=== PATIENT | female | born 1960 | race Caucasian/White ===

== ENCOUNTER 2016-02-22 08:11 | Inpatient (IN) | payer MEDICARE, MEDICAID, OTHER ==
[~2016-02-22] VITALS: Ht 175.3 cm; Wt 99.4 kg
[2016-02-22 08:11] VITALS: BP 151/85; PULSE 140; O2SAT 95
[~2016-02-22 08:11] MED LIST: ALBU8.5H2 INHALATION; GLIP10TA10 PO; HAL5 PO; IBUP200C PO; KLO1T PO; LEVO200T6 PO; LEVO25TA5 PO; LIP40 PO; LISI-571 PO; LITH300T PO; LITH300T2 PO; METF1000 PO; NIAC500T21 PO; OMEP40CA36 PO; PRAZ1CAP PO; diphenHYDramine PO
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
[2016-02-22] MEDS ORDERED: LORazepam 2 mg Tablet PO ONE ×2 (09:55→19:35)
[2016-02-22] MEDS ORDERED: diphenhydrAMINE 50 mg Capsule PO ONE ×2 (09:55→19:35)
[2016-02-22 10:08] VITALS: PULSE 113; O2SAT 100
[2016-02-22 10:22] LABS: BASOPHILS % (AUTO) 0.2 % (0-3); EOSINOPHILS % (AUTO) 0.4 % (0-5); Mean Corpuscular Hemoglobin 29.6 pg (27.0-35.0); Mean Corpuscular Volume 86.8 fL (81-100); NEUTROPHILS % (AUTO) 87.6 % (40-74); Platelet Count 345 bil/L (150-400)
[2016-02-22 14:36] VITALS: BP 137/87; PULSE 79; RESP 20; O2SAT 97
[2016-02-22 18:21] VITALS: BP 133/87; PULSE 94; RESP 20; O2SAT 100
[2016-02-22] MEDS ORDERED: diphenhydrAMINE 25 mg Capsule PO ONE (19:45)
[2016-02-22 21:14] VITALS: BP 152/73; PULSE 84; RESP 18; O2SAT 96
[2016-02-22] MEDS ORDERED: Alum-Mag Hydrox-Simeth 30 mL Suspension PO PRN (21:45)
[2016-02-22] MEDS ORDERED: hydrOXYzine Pamoate 25 mg Capsule PO PRN (21:45)
[2016-02-22] MEDS ORDERED: diphenhydrAMINE 25 mg Capsule PO PRN (21:55)
[2016-02-22] MEDS ORDERED: Albuterol HFA 60 Puff 8 Gm Inhaler INHALATION PRN (21:55)
[2016-02-22] MEDS: Magnesium Hydroxide 10 mL Oral Concentration PO PRN (23:39)
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
--- NOTE | 2016-02-23 02:28 | NUR ---
Observations 1900 to 0700 Pt arrived on the floor form our ED at 21:00 and was able complete the entire intake process. Pt took a shower when she was done with the intake process. Pt was polite and cooperative. Pt hung out in the DR for awhile and took a long time going to her room. Pt first appeared asleep at 00:45 and was observed every 15 minutes through the night as directed.
--- NOTE | 2016-02-23 05:06 | NUR ---
Nursing Note Noc shift Pt noted sleep time 0045 with 4 hr broken sleep. Pt got up multiple times throughout shift and appears to be in a manic state. Pt currently up cleaning milieu and singing. Pt was compliant with HS meds and requested Tylenol of neck pain. Q15 min safety checks done per protocol [facility] sleep, behavior, safety
[2016-02-23] MEDS: Pantoprazole 40 mg ER24 Tablet PO SCH (07:39)
[2016-02-23] MEDS: LORazepam 2 mg Tablet PO PRN ×2 (10:22→16:46)
[2016-02-23] MEDS ORDERED: Albuterol HFA 60 Puff 8 Gm Inhaler INHALATION PRN (11:35)
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
[2016-02-23 13:46] VITALS: BP 112/74; PULSE 92; RESP 16
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
--- NOTE | 2016-02-23 17:39 | NUR ---
spiritual care: pt request on unit pt asked for conversation time when i was visiting another pt. Returning to her, she invited me to join her and another pt at table. She recited the Serenity Prayer several times and the Lord's prayer and engaged in limited conversation about being a mosque, feeling better on MHC; she seemed to want to make distinctions between herself and others. pt calm, even perhaps stony, in manner,
--- NOTE | 2016-02-23 20:08 | NUR ---
Obs Dayshift Pt started the shift demanding, loud, verbally aggressive, vulgar language toward peers and staff. Challenging and threatening peers and staff. Pt refusing to follow staff directions, or unit policies. With Security assistance and show of support, pt was escorted to Seclusion where she cont' to verbally assault staff, threaten and vulgar language. Pt was able to calm herself and verbally agree to be more respectful toward others. She went to her room and had a short nap, since has been out in the milieu, polite, engaging appropriately w/ peers, calm, able to maintain herself on the unit. Good ADL's, Good meals
[2016-02-23] MEDS ORDERED: ' PO SCH (20:30)
[2016-02-23] MEDS: diphenhydrAMINE 25 mg Capsule PO SCH (21:08)
[2016-02-24] MEDS: LORazepam 2 mg Tablet PO PRN ×2 (03:43→21:32)
--- NOTE | 2016-02-24 04:27 | NUR ---
Nursing Note Noc shift Pt has been up and down with broken sleep throughout the shift. Pt first noted asleep 0030 with the longest period of uninterrupted sleep being loyda 40 min. Pt c/t be hostile, argumentative and demanding. Pt noted to be challenging other staff nurse on flora, glaring through window yelling "you know what you did". Pt given Tylenol 650mg for 10/10 hip pain and 2 mg ativan per request from Pt . Pt currently up socializing in a loud demeanor with peer. Q15 min safety checks per protocol, [facility] sleep, safety, behavior
--- NOTE | 2016-02-24 05:13 | NUR ---
Pt out on unit much of shift. Rapid change in mood from pleasant and happy to paranoid and posturing with staff. Pt up and down throughout shift. Pt observed every 15 minutes as ordered.
[2016-02-24] MEDS: Pantoprazole 40 mg ER24 Tablet PO SCH (07:43)
[2016-02-24 09:00] VITALS: BP 101/61; PULSE 95; RESP 16
--- NOTE | 2016-02-24 12:46 | PCM.PNPSY ---
Subjective Date of Service Feb 24, 2016 Subjective I spent 30 minutes both reviewing treatment plan and providing court documentation for a bench trial Sunday a.m. I spent less than 50% of the time counseling the patient. I attempted to review the treatment plan with the patient and discussed options available including the potential risks, benefits and side effects of her current regimen but she refused. Malu reports that she is fine and has no problem with thought organization or mood stability. Staff reports that she has been hostile in interactions and has been in her acting with other patients and staff in a confrontational and hostile manner. She slept 4.5 broken hours . She denies medication side effects. Patient was not able to identify her medications nor what they were used to treat. She repeatedly stated that she does not need psychiatric medications Current Medications Current Medications Acetaminophen 650 mg Q4H PRN PO Last administered on 02/24/16 03:44; Admin Dose 650 MG; Start 02/22/16 at 21:45 Atorvastatin Calcium 40 mg HS PO Last administered on 02/23/16 21:03; Admin Dose 40 MG; Start 02/22/16 at 21:55 Clonazepam 1 mg TID PO Last administered on 02/23/16 07:39; Admin Dose 1 MG; Start 02/22/16 at 21:55; Stop 02/23/16 at 12:11; Status DC Clonazepam 1 mg TID PO Last administered on 02/24/16 07:51; Admin Dose 1 MG; Start 02/23/16 at 14:30 Diphenhydramine HCl 25 mg HS PO Last administered on 02/23/16 21:08; Admin Dose 25 MG; Start 02/23/16 at 21:00 Diphenhydramine HCl 50 mg ONCE ONCE PO Last administered on 02/22/16 20:33; Admin Dose 50 MG; Start 02/22/16 at 19:45; Stop 02/22/16 at 19:46; Status DC Glipizide 10 mg BIDAC PO Last administered on 02/24/16 07:44; Admin Dose 10 MG ; Start 02/23/16 at 07:30 Haloperidol 5 mg HS PO Last administered on 02/22/16 22:52; Admin Dose 5 MG; Start 02/22/16 at 21:55; Stop 02/23/16 at 12:11; Status DC Haloperidol 5 mg HS PO Last administered on 02/23/16 21:06; Admin Dose 5 MG; Start 02/23/16 at 21:00 Haloperidol 5 mg ONCE ONCE PO Last administered on 02/22/16 18:16; Admin Dose 5 MG; Start 02/22/16 at 18:10; Stop 02/22/16 at 18:11; Status DC Haloperidol 5 mg ONCE ONCE PO Last administered on 02/22/16 20:33; Admin Dose 5 MG; Start 02/22/16 at 19:35; Stop 02/22/16 at 19:36; Status DC Levothyroxine Sodium 25 mcg DAILYAC PO Last administered on 02/24/16 07:42; Admin Dose 25 MCG; Start 02/24/16 at 07:30 Levothyroxine Sodium 100 mcg DAILYAC PO Last administered on 02/23/16 07:38; Admin Dose 100 MCG; Start 02/23/16 at 07:30; Stop 02/23/16 at 12:15; Status DC Levothyroxine Sodium 125 mcg 0630 PO Last administered on 02/23/16 07:38; Admin Dose 125 MCG; Start 02/23/16 at 06:30; Stop 02/23/16 at 12:15; Status DC Levothyroxine Sodium 200 mcg DAILYAC PO Last administered on 02/24/16 07:43; Admin Dose 200 MCG; Start 02/24/16 at 07:30 Lisinopril 5 mg DAILY PO Last administered on 02/24/16 07:51; Admin Dose 5 MG; Start 02/23/16 at 08:30 [place] Carbonate 300 mg BID PO Last administered on 02/24/16 07:51; Admin Dose 300 MG; Start 02/23/16 at 08:30 Lorazepam 2 mg ONCE ONCE PO Last administered on 02/22/16 20:33; Admin Dose 2 MG; Start 02/22/16 at 19:35; Stop 02/22/16 at 19:36; Status DC Lorazepam 2 mg Q4H PRN PO Last administered on 02/24/16 03:43; Admin Dose 2 MG ; Start 02/22/16 at 21:45 Magnesium Hydroxide 10 ml Q12H PRN PO Last administered on 02/22/16 23:39; Admin Dose 10 ML; Start 1/10/17 at 21:45 Metformin HCl 1,000 mg BIDWM PO Last administered on 02/24/16 07:51; Admin Dose 1,000 MG; Start 02/23/16 at 08:00 Pantoprazole 40 mg DAILYAC PO Last administered on 02/24/16 07:43; Admin Dose 40 MG; Start 02/23/16 at 07:30 Prazosin HCl 3 mg HS PO Last administered on 02/23/16 21:06; Admin Dose 3 MG; Start 02/22/16 at 21:55 Mental Status Exam Appearance: Disheveled Attitude: Hostile/Threatening Behavior: Distractible Affect: Labile Mood: Expansive, Irritable, Dysthymic Thought Process/Associations: Loose, Tangential Speech Production: Loud Speech Rate: Pressured Thought Content: Sikh preoccupation, Perseveration Danger to Self/Suicidal Ideati: None Delusions: Paranoid (Endorses) Orientation: Unable to assess Memory: Untestable Estimate Intellectual Function: Unable to assess Attention/Concentration & Cogn: Impaired Insight: Limited Judgement: Limited Result Diagram: 02/22/16 1010 02/22/16 1010 Mental Health Plan The patient is a 55-year-old white female with a history of severe bipolar mood disorder with psychosis. She has been admitted to multiple inpatient psychiatric hospitals throughout the the [facility] over the past 15 years. When she takes her medications, low-dose Klonopin, Haldol and lithium, she tends to do quite well. She apparently has been off medications for an unclear amount of time and has developed a full-blown yahaira (although there is report that she was recently In [facility] until several days prior to our admission). When she is manic, she tends to have a hyperreligious, hypersexual focus with paranoia and extreme irritability. She tends to threaten other people. This has been especially difficult for the people in her life including her and close friends. She has been trying to manage with outpatient services. However, has continued to decompensate since discharging from multiple different units. I believe she would benefit from a long-acting neuroleptic, although at this time, she is not cooperative in any manner. She is currently quite paranoid, quite pressured in her speech and refusing any psychotherapy. She is willing to take medications at this time. [place] AXIS I 1. Bipolar mood disorder, manic with psychotic features. 2. Posttraumatic stress disorder. 3. History of polysubstance abuse. AXIS II Defer. AXIS III 1. Hypertension. 2. Insulin-dependent diabetes mellitus. 3. Hypothyroidism. 4. Obesity. AXIS IV 1. Poor coping skills. 2. Chronic mental illness. AXIS V Current global assessment of functioning equal to 30. Treatments Patient is being provided with a high degree of safety through the structure and active adult engagement. We will focus on developing improved coping skills and identifying stressors that may have led to current episode. We will attempt to: Integrate into therapeutic groups, milieu and individual therapy. Maintain in a closely monitored and structured unit Provide low-stimulation environment Obtain collateral data to assist in treatment planning Assess degree of lability of affect and impulse control Complete safety plan Decrease frequency of relapse and need for re-hospitalization Denies thoughts of harm to self and/or others Establish a consistent sleep pattern Medication effective in stabilization of mood and/or thought process Reduce the risk of imminent harm to self and/or others by providing a safe environment Tolerates medication without side effects Patient will be on the following psychiatric medications: lithium 300 mg twice a day Prazosin 3 mg at bedtime Klonopin 1 mg 3 times a day Haldol 5 mg at bedtime Labs: Education: Educate patient about recreational drug use as an etiology Educate about metabolic etiologies related to obesity Address patient's legal status Patient is on a 72 involuntary treatment hold. Patient will be given the opportunity to talk to her internet architect and the epitaxial reactor operator Anticipate 5-7 day stay Liam Dobbins MD Feb 24, 2016 12:46
--- NOTE | 2016-02-24 17:58 | NUR ---
Nursing Dayshift: S: "I'll take my dinner meds at bedtime. Thank you." O: Patient declining metformin and glipizide at supper and requesting them for "bedtime like I take them at home." Has spent a good amount of time in the public areas of the unit. Eating well at meals. Social with peers. Irritable at times with select staff. othertimes polite and respective of people's boundaries. Coop with meds. Denies anxiety, depression, harmful thoughts, and hallucinations. A/P: CPOC. Monitor mood and behavior.
--- NOTE | 2016-02-24 18:54 | NUR ---
[facility] Day Shift Pt maintained behavioral control throughout the shift. Pt affect appears labile, ranging from unpleasant and defiant to pleasant and compliant throughout the shift. Pt spends most of the shift pacing the unit, participating in unit activities, and resting in her room. Pt is social with staff and peers, both appropriately and and in somewhat confrontational manners. Pt appears religiously preoccupied. Pt attended all meals and ate approx 80% of all meals.
[2016-02-24] MEDS: diphenhydrAMINE 25 mg Capsule PO SCH (20:54)
[2016-02-24] MEDS: Magnesium Hydroxide 10 mL Oral Concentration PO PRN (21:39)
--- NOTE | 2016-02-24 22:31 | NUR ---
Nurses Note Evening "You can kiss my ass you bitch,you are going to rot in hell." Patient pushed her way into the medication room as the nurse was exiting to give medications to another patient. She eventually moved away from the door. Patient later lurched at the promotion writer in a threatening way using vulgar language.She later received an Ativan 2mg PO administered by another nurse who she verbally abused as well. Patient instigated several peers to escalate requiring additional PRN medications to maintain safety. Will encourage improved impulse controls, limit setting as required to maintain patient and unit safety.
--- NOTE | 2016-02-25 03:59 | NUR ---
Pt out on unit much of shift. Rapid change in mood from pleasant and happy to paranoid and posturing with staff. Pt yelling at staff and invading personal space. Her mood was fine until on the phone with her friend, then yelling and accusing staff of various wrongdoing. Pt asleep at 100. Pt observed every 15 minutes as ordered.
--- NOTE | 2016-02-25 03:59 | NUR ---
Nursing Noc Pt appears to escalate her mood and behavior to an intrusive and verbally abusive manner, when ever she is talking on phone to her friend. Pt has been dificult to direct and has poor behavior control. Pt appears to be sleeping poorly this shift. Continuing to monitor emotional state, mood, behavior, sleep times, and medicaitons. CP.
--- NOTE | 2016-02-25 04:08 | NUR ---
nursing, nights, 11-7 s/o- up and down since start of the shift. appeared to sleep after 0100 to 0400 and is now sitting quietly in the dinning room. assessed q 15 minutes. a- more pleasant and generally appropriate. no apparent distress. p- monitor behavior/emotional state, quality, times and amount of sleep, use and effect of medication. yolanda
[2016-02-25] MEDS: Pantoprazole 40 mg ER24 Tablet PO SCH (07:29)
--- NOTE | 2016-02-25 11:15 | NUR ---
Nursing Day Shift- S-"How are you Art?! I don't take meds either. Don't let them experiment on you here!" O- Pt. was awake at the start of the day shift. Her tone was loud and pleasant initially. She took her medications without hesitation and eat well after requesting and receiving specific foods. Pt. was observed crying while talking to a peer at 9ish, then laughing loudly a few moments later. She was overheard discouraging a peer from taking medications. A- Hypomanic, loud tone, labile, grandiose and delusional. P- Cont. BHTP.
--- NOTE | 2016-02-25 11:52 | PCM.PNPSY ---
Subjective Date of Service Feb 25, 2016 Subjective I spent 20 minutes counseling the patient. I attempted to review the treatment plan with the patient and discussed options available including the potential risks, benefits and side effects of her current regimen but she refused. Malu repeats that she is fine and has no problem with thought organization or mood stability. She states she does not have a mental illness and does not need medications. Staff reports that she has been alternating between periods of hostility in interactions and an periods of generally congenial interactions. She slept 3 broken hours . Patient was not able to identify her medications nor what they were used to treat. She repeatedly stated that she does not need psychiatric medications Current Medications Current Medications Clonazepam 1 mg TID PO Last administered on 02/25/16 08:29; Admin Dose 1 MG; Start 02/23/16 at 14:30 Diphenhydramine HCl 25 mg HS PO Last administered on 02/24/16 20:54; Admin Dose 25 MG; Start 02/23/16 at 21:00 Haloperidol 5 mg HS PO Last administered on 02/24/16 20:55; Admin Dose 5 MG; Start 02/23/16 at 21:00 Ibuprofen 200 mg Q4H PRN PO Last administered on 02/25/16 08:30; Admin Dose 200 MG; Start 02/23/16 at 12:10 Levothyroxine Sodium 25 mcg DAILYAC PO Last administered on 02/25/16 07:31; Admin Dose 25 MCG; Start 02/24/16 at 07:30 Levothyroxine Sodium 200 mcg DAILYAC PO Last administered on 02/25/16 07:31; Admin Dose 200 MCG; Start 02/24/16 at 07:30 Mental Status Exam Appearance: Disheveled Attitude: Hostile/Threatening Behavior: Distractible Affect: Labile Mood: Expansive, Irritable, Dysthymic Thought Process/Associations: Loose, Tangential Speech Production: Loud Speech Rate: Pressured Thought Content: Latter Day preoccupation, Perseveration Danger to Self/Suicidal Ideati: None Delusions: Paranoid (Endorses) Orientation: Unable to assess Memory: Untestable Estimate Intellectual Function: Unable to assess Attention/Concentration & Cogn: Impaired Insight: Limited Judgement: Limited Result Diagram: 02/22/16 1010 02/22/16 1010 Mental Health Plan The patient is a 55-year-old white female with a history of severe bipolar mood disorder with psychosis. She has been admitted to multiple inpatient psychiatric hospitals throughout the [place] over the past 15 years. When she takes her medications, low-dose Klonopin, Haldol and lithium, she tends to do quite well. She apparently has been off medications for an unclear amount of time and has developed a full-blown yahaira (although there is report that she was recently In [facility] until several days prior to our admission). When she is manic, she tends to have a hyperreligious, hypersexual focus with paranoia and extreme irritability. She tends to threaten other people. This has been especially difficult for the people in her life including her and close friends. She has been trying to manage with outpatient services. However, has continued to decompensate since discharging from multiple different units. I believe she would benefit from a long-acting neuroleptic, although at this time, she is not cooperative in any manner. She is currently quite paranoid, quite pressured in her speech and refusing any psychotherapy. She is willing to take medications at this time. [place] AXIS I 1. Bipolar mood disorder, manic with psychotic features. 2. Posttraumatic stress disorder. 3. History of polysubstance abuse. AXIS II Defer. AXIS III 1. Hypertension. 2. Insulin-dependent diabetes mellitus. 3. Hypothyroidism. 4. Obesity. AXIS IV 1. Poor coping skills. 2. Chronic mental illness. AXIS V Current global assessment of functioning equal to 30. Treatments Patient is being provided with a high degree of safety through the structure and active adult engagement. We will focus on developing improved coping skills and identifying stressors that may have led to current episode. We will attempt to: Integrate into therapeutic groups, milieu and individual therapy. Maintain in a closely monitored and structured unit Provide low-stimulation environment Obtain collateral data to assist in treatment planning Assess degree of lability of affect and impulse control Complete safety plan Decrease frequency of relapse and need for re-hospitalization Denies thoughts of harm to self and/or others Establish a consistent sleep pattern Medication effective in stabilization of mood and/or thought process Reduce the risk of imminent harm to self and/or others by providing a safe environment Tolerates medication without side effects Patient will be on the following psychiatric medications: lithium 300 mg twice a day Prazosin 3 mg at bedtime Klonopin 1 mg 3 times a day Haldol 5 mg at bedtime Labs: Education: Educate patient about recreational drug use as an etiology Educate about metabolic etiologies related to obesity Address patient's legal status Patient is on a 72 involuntary treatment hold. Patient will be given the opportunity to talk to her compliance attorney and the asset protection greeter Anticipate 5-7 day stay Liam Dobbins MD Feb 25, 2016 11:15
[2016-02-25 14:23] VITALS: BP 117/78; PULSE 80; RESP 16
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
[2016-02-25] MEDS: diphenhydrAMINE 25 mg Capsule PO SCH (22:01)
[2016-02-25] MEDS: LORazepam 2 mg Tablet PO PRN (23:00)
[2016-02-26] MEDS: LORazepam 2 mg Tablet PO PRN (03:24)
--- NOTE | 2016-02-26 05:22 | NUR ---
Nursing Note Noc Pt has had intermittent, broken sleep for a total of three hr. Pt c/t be religiously focused with a hostile and angry demeanor. Pt spent most of the shift pacing hallway, talking very loudly and instigating non-compliance with peers. Pt was compliant with meds and requested PRN Ativan at 2300. Pt took med and then stated in a hostile, angry tone "I think you gave me Haldol, not ativan". Pt is currently resting in room. Q15 min safety checks done per protocol, [facility] sleep, behavior, safety
--- NOTE | 2016-02-26 05:33 | NUR ---
Pt out on unit much of shift. Rapid change in mood from pleasant and happy to paranoid and posturing with staff. Her mood was fine until on the phone with her daughter, then yelling and accusing staff of various wrongdoing. Also tried to instigate arguments with any other Pt that got anywhere close to her. Pt asleep 0030-300. Pt observed every 15 minutes as ordered.
[2016-02-26] MEDS: Pantoprazole 40 mg ER24 Tablet PO SCH (07:52)
[2016-02-26] MEDS: Magnesium Hydroxide 10 mL Oral Concentration PO PRN (09:00)
--- NOTE | 2016-02-26 12:52 | PCM.PNPSY ---
Subjective Date of Service Feb 26, 2016 Subjective I spent 20 minutes reviewing patient's course with staff. I attempted to review the treatment plan with the patient and discussed options available including the potential risks, benefits and side effects of her current regimen but she refused. Malu repeats that she is fine and has no problem with thought organization or mood stability. She was more pleasant with me today but still is only able to tolerate brief interactions. After which she rapidly escalates and becomes hostile and blaming. She states she does not have a mental illness and does not need medications she is taking medications as prescribed. Staff reports that she has been alternating between periods of hostility in interactions and an periods of generally congenial interactions. She slept 3 broken hours . Mental Status Exam Appearance: Disheveled Attitude: Hostile/Threatening Behavior: Distractible Affect: Labile Mood: Expansive, Irritable, Dysthymic Thought Process/Associations: Loose, Tangential Speech Production: Loud Speech Rate: Pressured Thought Content: Temple preoccupation, Perseveration Danger to Self/Suicidal Ideati: None Delusions: Paranoid (Endorses) Orientation: Unable to assess Memory: Untestable Estimate Intellectual Function: Unable to assess Attention/Concentration & Cogn: Impaired Insight: Limited Judgement: Limited Result Diagram: 02/22/16 1010 02/22/16 1010 Mental Health Plan The patient is a 55-year-old white female with a history of severe bipolar mood disorder with psychosis. She has been admitted to multiple inpatient psychiatric hospitals throughout the [facility] over the past 15 years. When she takes her medications, low-dose Klonopin, Haldol and lithium, she tends to do quite well. She apparently has been off medications for an unclear amount of time and has developed a full-blown yahaira (although there is report that she was recently In [facility] until several days prior to our admission). When she is manic, she tends to have a hyperreligious, hypersexual focus with paranoia and extreme irritability. She tends to threaten other people. This has been especially difficult for the people in her life including her and close friends. She has been trying to manage with outpatient services. However, has continued to decompensate since discharging from multiple different units. I believe she would benefit from a long-acting neuroleptic, although at this time, she is not cooperative in any manner. She remains quite paranoid, quite pressured in her speech and refusing any psychotherapy. She is willing to take medications at this time. [place] AXIS I 1. Bipolar mood disorder, manic with psychotic features. 2. Posttraumatic stress disorder. 3. History of polysubstance abuse. AXIS II Defer. AXIS III 1. Hypertension. 2. Insulin-dependent diabetes mellitus. 3. Hypothyroidism. 4. Obesity. AXIS IV 1. Poor coping skills. 2. Chronic mental illness. AXIS V Current global assessment of functioning equal to 30. Treatments Patient is being provided with a high degree of safety through the structure and active adult engagement. We will focus on developing improved coping skills and identifying stressors that may have led to current episode. We will attempt to: Integrate into therapeutic groups, milieu and individual therapy. Maintain in a closely monitored and structured unit Provide low-stimulation environment Obtain collateral data to assist in treatment planning Assess degree of lability of affect and impulse control Complete safety plan Decrease frequency of relapse and need for re-hospitalization Denies thoughts of harm to self and/or others Establish a consistent sleep pattern Medication effective in stabilization of mood and/or thought process Reduce the risk of imminent harm to self and/or others by providing a safe environment Tolerates medication without side effects Patient will be on the following psychiatric medications: lithium 300 mg twice a day Prazosin 3 mg at bedtime Increase Klonopin 1 mg twice a day and 2 mg at bedtime Increase Haldol to 10 mg bedtime Address patient's legal status Patient is on a 72 involuntary treatment hold. Patient will be given the opportunity to talk to her lawyer real estate and the maintenance coordinator Anticipate 5-7 day stay Liam Dobbins MD Feb 26, 2016 12:52
--- NOTE | 2016-02-26 14:19 | NUR ---
Nursing Day Shift- S/O- Pt. has been visible on the unit during the shift. She had only slept 3 hours last night per report. Pt. has been pressured and loud, but within behavioral control. A- Pressured, loud, paranoid, very limited insight. Grandiose, labile. P- Cont. BHTP.
[2016-02-26 14:24] VITALS: BP 99/63; PULSE 80; RESP 16
--- NOTE | 2016-02-26 18:03 | NUR ---
NURSING NOTE [id number] Orientation= x3 Mood= "I'm always depressed, so..." Affect= superficially pleasant, irritable, pressured and hostile speech at times w/this senior technical writer Behavior= pt mostly keeping to herself this evening, interacting selectively w/peers. Her daughter visited. Ate most of her dinner. Thought processes= pt. reports depression because she is here and because "I'm being kept from my children... YOU are keeping me from my children". Pt. laughed in scornful tone when this senior technical writer asked if she has SI/HI, then denied either. Pt. denied AH/VH.
[2016-02-26] MEDS: diphenhydrAMINE 25 mg Capsule PO SCH (21:40)
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
[2016-02-27] MEDS: LORazepam 2 mg Tablet PO PRN (00:27)
--- NOTE | 2016-02-27 06:17 | NUR ---
Nursing 11p-7a Pt has been paranoid, suspicious & belligerent towards staff. She has made aggressive and baited comments tonight trying to created a rise out of others telling them "You are going to hell! How do you pick your nose. You are a bitch! You need a wardrobe change. You are a woman hater!" Pt presenting as easily agitated, paranoid and obnoxious at times. Ativan offered and accepted as prn but ineffective for agitation. Poor sleep tonight of 2 hours.
[2016-02-27 10:45] VITALS: BP 134/84; PULSE 88; RESP 18
--- NOTE | 2016-02-27 11:49 | NUR ---
Nursing Day Shift- S- "I would take all of my medications if I thought they weren't tapered with! No!! I'm not taking them today. They can be tapered with in the sealed packages. I don't trust any of you. I know you are trying to make me worse! You know you are." O- Pt. was asleep at the start of the day shift. She woke and was pleasant with staff. Her medications were offered, and she became loud and angry with staff. The medications have been re offered 3 times, and refused. Pt. was loud and verbally rude to a calm peer. Pt was difficult to redirect. A- Increasingly paranoid and angry today over yesterday. Refusing PO medications. P- informed. Cont. to build trust. Cont. BHTP.
--- NOTE | 2016-02-27 12:22 | PCM.PNPSY ---
Subjective Date of Service Feb 27, 2016 Subjective I spent 20 minutes reviewing patient's course with staff. I attempted to review the treatment plan with the patient and discussed options available including the potential risks, benefits and side effects of her current regimen but she refused. She could only tolerate 60 seconds of interaction before making vulgar statements and storming down the lam Malu repeats that she is fine and has no problem with thought organization or mood stability. She rapidly escalates and becomes hostile and blaming with minor provocation or frustrations. She states she does not have a mental illness and does not need medications she is taking medications as prescribed. Staff reports that she has been alternating between periods of hostility in interactions and an periods of generally congenial interactions. She slept 2 broken hours . Affect reports that she is frequently refusing medications. Current Medications Current Medications Clonazepam 1 mg 0830,1430 PO Last administered on 02/26/16 15:04; Admin Dose 1 MG; Start 02/26/16 at 14:30 Clonazepam 2 mg HS PO Last administered on 02/26/16 21:41; Admin Dose 2 MG; Start 02/26/16 at 21:00 Haloperidol 10 mg HS PO Last administered on 02/26/16 21:41; Admin Dose 10 MG; Start 02/26/16 at 21:00 Mental Status Exam Appearance: Disheveled Attitude: Hostile/Threatening Behavior: Distractible Affect: Labile Mood: Expansive, Irritable, Dysthymic Thought Process/Associations: Loose, Tangential Speech Production: Loud Speech Rate: Pressured Thought Content: Christianity preoccupation, Perseveration Danger to Self/Suicidal Ideati: None Delusions: Paranoid (Endorses) Orientation: Unable to assess Memory: Untestable Estimate Intellectual Function: Unable to assess Attention/Concentration & Cogn: Impaired Insight: Limited Judgement: Limited Result Diagram: 02/22/16 1010 02/22/16 1010 Mental Health Plan The patient is a 55-year-old white female with a history of severe bipolar mood disorder with psychosis. She has been admitted to multiple inpatient psychiatric hospitals throughout the [facility] over the past 15 years. When she takes her medications, low-dose Klonopin, Haldol and lithium, she tends to do quite well. She apparently has been off medications for an unclear amount of time and has developed a full-blown yahaira (although there is report that she was recently In [facility] until several days prior to our admission). When she is manic, she tends to have a hyperreligious, hypersexual focus with paranoia and extreme irritability. She tends to threaten other people. This has been especially difficult for the people in her life including her and close friends. She has been trying to manage with outpatient services. However, has continued to decompensate since discharging from multiple different units. I believe she would benefit from a long-acting neuroleptic, although at this time, she is not cooperative in any manner. She remains quite paranoid, quite pressured in her speech and refusing any psychotherapy. She is frequently refusing to take medications Will likely need a medication override after her court fdc for 14 is approved. [place] AXIS I 1. Bipolar mood disorder, manic with psychotic features. 2. Posttraumatic stress disorder. 3. History of polysubstance abuse. AXIS II Defer. AXIS III 1. Hypertension. 2. Insulin-dependent diabetes mellitus. 3. Hypothyroidism. 4. Obesity. AXIS IV 1. Poor coping skills. 2. Chronic mental illness. AXIS V Current global assessment of functioning equal to 30. Treatments Patient is being provided with a high degree of safety through the structure and active adult engagement. We will focus on developing improved coping skills and identifying stressors that may have led to current episode. We will attempt to: Integrate into therapeutic groups, milieu and individual therapy. Maintain in a closely monitored and structured unit Provide low-stimulation environment Obtain collateral data to assist in treatment planning Assess degree of lability of affect and impulse control Complete safety plan Decrease frequency of relapse and need for re-hospitalization Denies thoughts of harm to self and/or others Establish a consistent sleep pattern Medication effective in stabilization of mood and/or thought process Reduce the risk of imminent harm to self and/or others by providing a safe environment Tolerates medication without side effects Patient will be on the following psychiatric medications: After Sunday Court session would recommend a medication override be pursued this client is frequently refusing meds. lithium 300 mg twice a day Prazosin 3 mg at bedtime Increase Klonopin 1 mg twice a day and 2 mg at bedtime Increase Haldol to 10 mg bedtime Address patient's legal status Patient is on a 72 involuntary treatment hold. Patient will be given the opportunity to talk to her business analysis analyst and the coding educator Anticipate 7 day stay Liam Dobbins MD Feb 27, 2016 12:22
--- NOTE | 2016-02-27 13:25 | NUR ---
Police Service Technician./ c.m. S.:"Mind your own business!" O.: tried to meet with pt. before lunch and to work on her Treatment plan and goals. Pt. refused to talk and became angry very quickly. She refused to work on her Treatment plan and goals. She was in and out of her room picking up on different peers. A.: pt. is uncooperative, easily agitated, angry, paranoid and delusional. She looks internally preoccupied and responding on internal stimuli. P.: monitor behavior, provide safety in the unit, encourage pt. to take her meds; follow care plan.
[2016-02-27] MEDS: Pantoprazole 40 mg ER24 Tablet PO SCH (14:13)
--- NOTE | 2016-02-27 14:14 | NUR ---
Pt. agreed to take all of her AM scheduled medications at 1410 today. 1430 scheduled Klonopin to be held until a later time, as scheduled AM dose was given at 1410.
--- NOTE | 2016-02-27 18:58 | NUR ---
Obs Dayshift Pt has been restless, loud, inappropriate toward staff and peers. Yelling at peers, telling staff "you smell like tuna, have you showered lately" "your a bitch, I won't come to your group because you are trouble" flipping them off and trying to stare staff down in the RN station. Vulgar and inappropriate comments, statements. Walking the unit, went outside. Pt is grandiose, rude, impulsive, loud, challenging. Ok ADL's, Good meals
[2016-02-27] MEDS: diphenhydrAMINE 25 mg Capsule PO SCH (21:32)
--- NOTE | 2016-02-27 21:56 | NUR ---
Orientation= x2 (not oriented to situation) Mood= "hahaha!" Affect= irritable and hostile to staff, friendly and pleasant w/peers Behavior= pt. is visible on the unit, watching TV w/peers, spending time outside in the courtyard and in the rec room. She has been making rude and sarcastic comments to staff throughout the shift; mostly commenting on their appearances. She was hostile toward a DMHP who was here to evaluate another pt, shouting at him through the glass of the NS and giving him the middle finger and mocking him (she appeared to have had previous interactions w/him though he could not remember). Difficult to redirect and appears to do worse when staff engages with her. At dinner she was agreeable to take her Metformin and Glipizide but did not want to take the missing 14:30 Klonopin dose offered to her (she had refused her a.m. Klonopin but then agreed to take it at 1400, effectively missing the 14:30 Klonopin dose in her schedule). She was agreeable to take her HS medications. Thought processes= paranoid, delusional, did not respond to this typewriter assembly and parts inspector when asked about SI/HI, unwilling to answer most questions posed by this typewriter assembly and parts inspector and mostly issues sarcastic responses Addendum: 02/27/16 at 2159 by TERESA STUART RN Please note this was an RN shift report for [id number]
[2016-02-28] MEDS: LORazepam 2 mg Tablet PO PRN (02:57)
--- NOTE | 2016-02-28 05:49 | NUR ---
Observations from [id number] Upon shift start, pt was very unpleasant with staff, staring angrily and flipping them off. Then pt requested coffee at 2100 but was still very amped up so staff said it was too late for coffee and she started yelling demanding we make her coffee but was not able to understand that staff agreed it was too late for coffee with the milieu that we currently have. However after pt took meds, she seemed to calm down and appeared less agitated and angry. Pts affect is labile, ranging from irritable, hostile and defiant with staff, to pleasant and agreeable with peers unless they disagree with her or say something she doesnt like. Pt is very demanding and when she doesnt get her way, she escalates very quickly and begins yelling and cussing. Pt appeared asleep from 1493-6810 and from 7821-6002. Pt has been monitored every 15 minutes as directed.
--- NOTE | 2016-02-28 06:21 | NUR ---
Nursing note NOC Patient slept only 2.75 hours this shift. Pleasant and cooperative attitude towards staff and peers this shift. In milieu with peers having hair andorran braided. PRN 2 mg Ativan at 0257, effective.
[2016-02-28] MEDS: Pantoprazole 40 mg ER24 Tablet PO SCH (07:55)
[2016-02-28 08:45] VITALS: BP 107/67; PULSE 84; RESP 16
[2016-02-28] MEDS: Magnesium Hydroxide 10 mL Oral Concentration PO PRN (10:06)
[2016-02-28 10:16] VITALS: BP 107/67; PULSE 84; RESP 16
--- NOTE | 2016-02-28 12:42 | NUR ---
Mood, BM, and TSH Pt. came to medication room and asked for her morning medications. She took all her medications without problems. Pt. is calm, cooperative, and easy going thus far. PRN MOM was given as requested by pt. She reported she was constipated and that her last BM was 2 days ago. Will monitor GI/BM. TSH 0.051 (Low) on 02/22/16. Pt. currently on 225 mcg PO [address] daily[address] Dr. Stephens was notified by charge nurse. Doctor will review/order lab and medication. Addendum: 02/28/16 at 1405 by ALANNA RICO RN Pt. reported 1 BM today after she had MOM.
--- NOTE | 2016-02-28 14:05 | NUR ---
R. nipple P: According to evening or night nurse supervisor report, pt. verbalized concern about her R. nipple, "My nipple is inflamed". I: Assessed pt. right nipple in her room. Noted a couple minor scabs superior to R. nipple (resembling scabs from scratching). No signs of infection or drainage. Pt. reported itchy skin and she had been scratching herself. E: Discouraged further scratching to prevent skin breakdown. Gave pt. lotion to moisturizer affected skin area. Pt. agreed with plan.
--- NOTE | 2016-02-28 16:26 | NUR ---
Cop Examiner./ c.m. S.:"I'm very well, thank you. I'm waiting to talk to you together with all my grants director." O.: met with pt. and MD together in pt.'s room. She was resting in bed. She denied SI/HI - "I believe in [place] Miguel Ash. I will never hurt myself. It's against my believes!" She didn't want to do a blood test. She didn't believe that there was anything wrong with her previous blood test. "I'm sure they mixed up my blood with somebody else." She refused to talk about herself with MD saying that she was "talking to teams of my grants director from [place]." She was in and out of her room mostly keeping to herself. A.: pt. is uncooperative, isolative, unpredictable, has poor insight, seems confused. P.: monitor behavior, provide safety in the unit; follow care plan.
--- NOTE | 2016-02-28 19:36 | PCM.PNPSY ---
Subjective Date of Service Feb 28, 2016 Subjective The patient reports that she is "wonderful so far, I would like to talk and I'm talked off." She then goes on to state that she will only talk with her airborne mission systems superintendent is present, "lots of them, from [place]." With regards as to where she would live or with whom or where she would get services she stated it was "none of your business." Sleep: 2.75+ hours Appetite: "Just fine" Suicidal and homicidal ideation: "Any airborne mission systems superintendent will talk to you about it." " Never here" Auditory hallucinations/Visual hallucinations: "Never here" Other Psychotic Symptoms: Guarded and paranoid Anxiety/Depression: "That is for my superintendent stevedoring to talk to you about." Current Medications Current Medications Clonazepam 2 mg HS PO Last administered on 02/27/16 21:32; Admin Dose 2 MG; Start 02/26/16 at 21:00 Haloperidol 10 mg HS PO Last administered on 02/27/16 21:31; Admin Dose 10 MG; Start 02/26/16 at 21:00 Mental Status Exam Appearance: Neat/well groomed Attitude: Hostile/Threatening Behavior: Other Affect: Restricted Mood: Irritable, Other (angry) Thought Process/Associations: Goal Directed, Other (poverty of speech) Speech Production: Paucity Speech Rate: Lags/Latency Speech Articulation: Normal Thought Content: Suspicious, Perseveration Danger to Self/Suicidal Ideati: None Danger to Others: None Delusions: Paranoid (Endorses) Hallucinations: Auditory (Denies), Visual (Denies) Consciousness: Alert Orientation: Unable to assess Memory: Untestable Estimate Intellectual Function: Average Attention/Concentration & Cogn: Impaired Insight: Limited Judgement: Limited Result Diagram: 02/22/16 1010 02/22/16 1010 Mental Health Plan The patient is a 55-year-old white female with a history of severe bipolar mood disorder with psychosis. She has been admitted to multiple inpatient psychiatric hospitals throughout the [facility] over the past 15 years. When she takes her medications, low-dose Klonopin, Haldol and lithium, she tends to do quite well. She apparently has been off medications for an unclear amount of time and has developed a full-blown yahaira (although there is report that she was recently In [facility] until several days prior to our admission). When she is manic, she tends to have a hyperreligious, hypersexual focus with paranoia and extreme irritability. She tends to threaten other people. This has been especially difficult for the people in her life including her and close friends. She has been trying to manage with outpatient services. However, has continued to decompensate since discharging from multiple different units. The patient may benefit from a long-acting neuroleptic but is currently not cooperating. The patient remains quite paranoid and hostile and states she may or may not allow a blood draw in the morning. [place] AXIS I 1. Bipolar mood disorder, manic with psychotic features. 2. Posttraumatic stress disorder. 3. History of polysubstance abuse. AXIS II Defer. AXIS III 1. Hypertension. 2. Insulin-dependent diabetes mellitus. 3. Hypothyroidism. 4. Obesity. AXIS IV severe with poor coping skills, recent family discord, poor coping skills AXIS V Current global assessment of functioning equal to 25. Medications [place] 300 mg twice a day Prazosin 3 mg at bedtime Klonopin 1 mg twice a day and 2 mg at bedtime Haldol 10 mg bedtime Treatments 1. The patient is encouraged to participate with group and milieu therapy. 2. The patient is encouraged to continue medications as prescribed. 3. The patient will meet with the treatment team on a daily basis to assess symptoms, side effects, and response to treatment. 4. Check lithium level, CBC, CMP, TSH and free T4 and a urinalysis in the morning. 5. Consider long-acting injectable medication to assist with medication adherence in the community. 6. Anticipated length of stay 10-14 days. Jez Stephens MD Feb 28, 2016 19:36
--- NOTE | 2016-02-28 20:36 | NUR ---
Obs Dayshift Pt was slightly more calm today than yesterday. Less angry and vulgar. Pt is able to join in more groups, with good participation. Pt is engaging w/ peers, and slightly better w/ staff. Less manic symptoms, good ADL's, good meals. Had a couple short naps today, watched a couple movies, went outside and spoke w/ staff about another patient trying to stack furniture to try and get on the roof.
[2016-02-28] MEDS: diphenhydrAMINE 25 mg Capsule PO SCH (20:38)
--- NOTE | 2016-02-29 02:05 | NUR ---
Observations 1900 to 0700 Pt spent her night watching movies and socializing. Pt did take a shower agin last night. Pt was polite and cooperative for the most part. Pt hung out in the DR for awhile and took a long time going to her room. Pt first appeared asleep at 00:00 and was observed every 15 minutes through the night as directed.
--- NOTE | 2016-02-29 05:10 | NUR ---
Complaint regarding [place] Malu was not my assigned patient tonmari, however she presented to this nurse making specific request. She presented as suspicious and very paranoid regarding staff. She stated "I want you to know that my lithium is making me feel funny. I have a pimply rash on my body". Pt showed me her arm and shoulder. This nurse was unable to detect any raised or red areas on the parts of her body shown. "I have muscle and joint pain, excessive weight gain & bloating in my abdomen. The lithium is making me sleep too much. I am tired during the day. I had at least two naps today maybe more". This nurse asked Malu if she felt if her mood seemed more even and she stated "Of course but it makes me feel weird!". She presents with a very intense stare and stands very close to staff. She then proceeded to make paranoid statements about current doctors and staff providing her lithium stating "They are all crooked. They are evil. She is the wicked [place] of [place]!" Pt made this staff member promise to document her physical complaints which she believes are caused by her taking lithium.
[2016-02-29 06:03] VITALS: BP 127/76; PULSE 86; RESP 16
[2016-02-29 06:31] VITALS: BP 127/76; PULSE 86; RESP 16
--- NOTE | 2016-02-29 07:01 | NUR ---
Nursing Note NOC Patient slept 4 hours on NOC shift. 15 minute checks. Slept [id number]; [id number]; [id number]. Irritable and demanding with staff at times. At other times, pleasant. PRN MOM 10 ml po at 1006 am 16th. No PRNs NOC.
[2016-02-29 07:56] LABS: BASOPHILS % (AUTO) 0.2 % (0-3); EOSINOPHILS % (AUTO) 5.3 % (0-5); MONOCYTES % (AUTO) 8.3 % (4-12); Mean Corpuscular Hemoglobin 28.7 pg (27.0-35.0); Mean Corpuscular Volume 87.8 fL (81-100); NEUTROPHILS % (AUTO) 59.7 % (40-74); Platelet Count 349 bil/L (150-400)
[2016-02-29] MEDS: Pantoprazole 40 mg ER24 Tablet PO SCH (09:01)
--- NOTE | 2016-02-29 11:05 | NUR ---
Credit Control Officer./ c.m. S./O.: pt. is out in the unit. She was talking to selective peers briefly but she refused to talk to the sign writer letterer or painter. She was "advising" peers regarding "court rules and regulations". A.: pt. is uncooperative, internally preoccupied, easily irritable, grandiose at times. P.: monitor behavior, follow care plan.
--- NOTE | 2016-02-29 19:30 | PCM.PNPSY ---
Subjective Date of Service Feb 29, 2016 Subjective Discussed with the patient today [facility] as she refused to speak anywhere else. Informed patient that her lithium level was 0.3 and she stated that she had a rash from lithium and did not want to take it. When asked that she shown staff she stated that she had. According to staff assessment, no rashes present and patient has long history of taking medication without difficulty. When she was informed of this she stated, "do what you are going to do." Patient observed yelling at peer in day area for their hygiene and cleaning the outside garbage can for hygiene purposes. Sleep: Approximately 4 hours broken Appetite: Okay Suicidal and homicidal ideation: Denies Auditory hallucinations/Visual hallucinations: Denies Other Psychotic Symptoms: Quite hostile and paranoid. Anxiety/Depression: Denies Mental Status Exam Appearance: Neat/well groomed Attitude: Hostile/Threatening Behavior: Other (as above) Affect: Restricted Mood: Irritable, Other (angry) Thought Process/Associations: Goal Directed, Other (poverty of speech) Speech Production: Paucity Speech Rate: Normal Speech Articulation: Normal Thought Content: Suspicious, Perseveration Danger to Self/Suicidal Ideati: None Danger to Others: None Delusions: Paranoid (Endorses) Hallucinations: Auditory (Denies), Visual (Denies) Consciousness: Alert Orientation: Unable to assess Memory: Untestable Estimate Intellectual Function: Average Attention/Concentration & Cogn: Impaired Insight: Limited Judgement: Limited Result Diagram: 02/29/16 0720 02/29/16 0720 Mental Health Plan The patient is a 55-year-old white female with a history of severe bipolar mood disorder with psychosis. She has been admitted to multiple inpatient psychiatric hospitals throughout the state over the past 15 years. When she takes her medications, low-dose Klonopin, Haldol and lithium, she tends to do quite well. She apparently has been off medications for an unclear amount of time and has developed a manic episode. Historically, when manic, she tends to have a hyperreligious, hypersexual focus with paranoia and extreme irritability. She tends to threaten other people. Her current admission appears to be consistent with this pattern. Despite being engaged in outpatient services, she has difficulty with medication adherence and may benefit from a long-acting neuroleptic but is currently decompensated and unable to have this discussion. The patient remains quite paranoid and hostile and reports an allergy though will not allow this ad copy writer or others to see her today and it was assessed over the night and no sign of rash was found. Her laboratory studies indicate her lithium level is low. No other significant findings. [place] AXIS I 1. Bipolar mood disorder, manic with psychotic features. 2. Posttraumatic stress disorder. 3. History of polysubstance abuse. AXIS II Defer. AXIS III 1. Hypertension. 2. Insulin-dependent diabetes mellitus. 3. Hypothyroidism. 4. Obesity. AXIS IV severe with poor coping skills, recent family discord, poor coping skills AXIS V Current global assessment of functioning equal to 25. Medications [place] 300 mg twice a day Prazosin 3 mg at bedtime Klonopin 1 mg twice a day and 2 mg at bedtime Haldol 10 mg bedtime Treatments 1. The patient is encouraged to participate with group and milieu therapy. 2. The patient is encouraged to continue medications as prescribed. 3. The patient will meet with the treatment team on a daily basis to assess symptoms, side effects, and response to treatment. 4. Check urinalysis in the morning as this may be contributing to irritability. 5. Increase [place] to 450 mg twice daily. 6. Consider long-acting injectable medication to assist with medication adherence in the community. 7. Anticipated length of stay 10-14 days. Jez Stephens MD Feb 29, 2016 19:30
[2016-02-29] MEDS: diphenhydrAMINE 25 mg Capsule PO SCH (22:22)
--- NOTE | 2016-02-29 23:01 | NUR ---
Nursing Note Maryellen Pt started new lithium ER medication and Pt stated "Ill take it but everyone knows that its giving me a rash and Im going to romana the Doctor". No rash noted on visible skin. Pt was compliant with all HS meds and has had controlled behaviors this shift. Pt noted socializing with peers in milieu throughout the shift. Q15 min safety checks per protocol, WC sleep, behavior, safety
--- NOTE | 2016-03-01 02:18 | NUR ---
Observations 1900 to 0700 Pt spent her night watching movies and socializing. Pt did take a shower again last night. Pt was polite and cooperative. Pt hung out in the DR talking to another Pt until the public bath attendant hours. Pt first appeared asleep at 01:15 and was observed every 15 minutes through the night as directed.
--- NOTE | 2016-03-01 05:42 | NUR ---
Sleep Delayed onset of sleep. She slept from 7986-0096. She awoke and got her laundry from the dryer and returned to bed by 0530. She has made no complaints regarding having a rash this shift. Total sleep to current time 4+ hours. She currently is resting in bed.
[2016-03-01] MEDS: Magnesium Hydroxide 10 mL Oral Concentration PO PRN (07:58)
[2016-03-01] MEDS: Pantoprazole 40 mg ER24 Tablet PO SCH (08:01)
[2016-03-01 10:29] VITALS: BP 128/60; PULSE 67
--- NOTE | 2016-03-01 17:54 | NUR ---
nursing note 7am-7pm S)"I have been waiting all morning for court!" O) pt went to court this am compliant with the recommended 14 MRO, dressed in own clothes and made sure her makeup and hair looked good, took medications with out problems, did report that lithium caused all kinds of distress but this investigative writer was unable to observe any side effects, calmer, social with peers, enjoyed coloring, ate meals A) calmer, compliant with medications, social P) monitor medications, and encourage participation in treatment
--- NOTE | 2016-03-01 19:37 | NUR ---
MHA Note D- Patient was social and active with peers on the unit. She ate all of her meals in the dining room in addition to extras from other's trays. Patient attended all ADLs this shift and appears well groomed. A-Patient spent the day in the dining room. She was cynical when asked if she wanted to join peers in artwork. Staff had printed some adult coloring pages for her peers and she stated "we don't have anything to color with" and when given fine tip markers "these aren't good enough." Patient grew less irritable once she started drawing, an activity she did for most of the day. Patient expressed some hyper-latter-day content, stating that "the sun shining is God talking down on me." When asked if that was a metaphor patient only glared. She was not directable with peer food either, taking food from patients and even off of their trays despite staff attempts to stop it. She then became verbally abusive towards staff both during lunch and dinner for the same reasons. She remained toxic for the duration of the shift, making innaprorpaite statements to peers "It's all bullt" and "Yeah, treat him like a fish and just reel him in." When staff was engaged with a patient. She was also paranoid when staff was doing checks on the unit and making notes about a conversation this movie machine operator was actively having with another patient. "What are you writing? You're the only one who writes out here." She stated "You're just on a power trip" when told staff take notes on conversations so we have something to tell the doctors. Patient remains guarded, irritable, sarcastic, and oppositional. She expresses no insight to this movie machine operator. P-Continue current treatment plan.
--- NOTE | 2016-03-01 20:57 | PCM.PNPSY ---
Subjective Date of Service Mar 01, 2016 Subjective The patient reports that she is "very well this morning." She states this while glaring hostilely at this public relations writer. Regarding lithium she states "I am allergic to it." When informed that staff had attempted to locate a rash but could not she stated "no they have found rashes on my body my body is aching." She stated that she might be open to another medication such as Abilify however records indicate that this has been episodically successful in prior hospitalizations and will need further investigation. She stated that she did not want to be released from the hospital as she was not ready and she was homeless. Sleep: 3.75+ hours Appetite: "Extra hungry" Suicidal and homicidal ideation: "I believe in Juan Miguel and would never do that." Auditory hallucinations/Visual hallucinations: Denies Other Psychotic Symptoms: Quite hostile and paranoid. Anxiety/Depression: 0/10. "I miss my daughter and grandchildren. Current Medications Current Medications [place] Carbonate 450 mg BID PO Last administered on 03/01/16t 08:00; Admin Dose 450 MG; Start 02/29/16 at 20:30 Mental Status Exam Appearance: Neat/well groomed Attitude: Hostile/Threatening Behavior: Other (as above) Affect: Restricted Mood: Irritable, Other (angry) Thought Process/Associations: Goal Directed, Other (poverty of speech) Speech Production: Paucity Speech Rate: Normal Speech Articulation: Normal Thought Content: Suspicious, Perseveration Danger to Self/Suicidal Ideati: None Danger to Others: None Delusions: Paranoid (Endorses) Hallucinations: Auditory (Denies), Visual (Denies) Consciousness: Alert Orientation: Unable to assess Memory: Untestable Estimate Intellectual Function: Average Attention/Concentration & Cogn: Impaired Insight: Limited Judgement: Limited Result Diagram: 02/29/16 0720 02/29/16 0720 Mental Health Plan The patient is a 55-year-old white female with a history of severe bipolar mood disorder with psychosis. She has been admitted to multiple inpatient psychiatric hospitals throughout the state over the past 15 years. When she takes her medications, low-dose Klonopin, Haldol and lithium, she tends to do quite well. She apparently has been off medications for an unclear amount of time and has developed a manic episode. Historically, when manic, she tends to have a hyperreligious, hypersexual focus with paranoia and extreme irritability. She tends to threaten other people. Her current admission appears to be consistent with this pattern. Despite being engaged in outpatient services, she has difficulty with medication adherence and may benefit from a long-acting neuroleptic but is currently decompensated and unable to have this discussion. The patient remains quite paranoid and hostile and reports an allergy though will not allow this public relations writer or others to see her today and it was assessed over the night and no sign of rash was found. Her laboratory studies indicate her lithium level is low. No other significant findings. Although the patient reports side effects from medications so far none have been located. We did discuss potentially reducing clonazepam to reduce sedation. She appears alert and active on the unit and remains with a hostile affect. It appears premature to reduce benzodiazepines at this time. [place] AXIS I 1. Bipolar mood disorder, manic with psychotic features. 2. Posttraumatic stress disorder. 3. History of polysubstance abuse. AXIS II Defer. AXIS III 1. Hypertension. 2. Insulin-dependent diabetes mellitus. 3. Hypothyroidism. 4. Obesity. AXIS IV severe with poor coping skills, recent family discord, poor coping skills AXIS V Current global assessment of functioning equal to 25. Medications [place] 300 mg twice a day Prazosin 3 mg at bedtime Klonopin 1 mg twice a day and 2 mg at bedtime Haldol 10 mg bedtime Treatments 1. The patient is encouraged to participate with group and milieu therapy. 2. The patient is encouraged to continue medications as prescribed. 3. The patient will meet with the treatment team on a daily basis to assess symptoms, side effects, and response to treatment. 4. Check urinalysis in the morning as this may be contributing to irritability. 5. Continue Eskalith 450 mg twice daily and check level in 4 days 6. Consider long-acting injectable medication to assist with medication adherence in the community. 7. Anticipated length of stay 10-14 days. Jez Stephens MD Mar 01, 2016 20:57
[2016-03-01] MEDS: diphenhydrAMINE 25 mg Capsule PO SCH (22:07)
--- NOTE | 2016-03-01 22:16 | NUR ---
REFUSED MEDICATIONS Pt. refused her scheduled HS [place] and Haldol this evening. She states she is allergic to the medications reporting her reactions for both medications were a generalized rash, "pain all over my body" and weight gain. She became upset when this publicity writer encouraged her to take them and said "the doctor lied to me today-- he said I was starting [place] and no more [place]! He's in trouble now!" She agreed to take her other medications as scheduled.
--- NOTE | 2016-03-02 03:51 | NUR ---
Nursing Noc Pt o8t to common area during the evening for snack and recreation. Daughter noted to visit this evening and noted that daughter did most of the talking with patient interacting appropriately. Pt not near as disruptive or hostile to staff and patients as yesterday. Pt noted to take only part of prescribed medications for HS. Continuing to monitor sleep by Q15 minute safety checks, mood, behavior, emotional state and medications. CP
--- NOTE | 2016-03-02 05:40 | NUR ---
Observations 1900 to 0700 Pt spent her night watching TV and socializing. Pt's Daughter visited last night and they both seemed to enjoy the visit. Pt did take a shower again last night. Pt was polite and cooperative. Pt hung out in the DR talking to another Pt for awhile. Pt first appeared asleep at 22:30 and was observed every 15 minutes through the night as directed.
[2016-03-02] MEDS: Magnesium Hydroxide 10 mL Oral Concentration PO PRN (08:02)
[2016-03-02] MEDS: Pantoprazole 40 mg ER24 Tablet PO SCH (08:03)
[2016-03-02] MEDS: LORazepam 2 mg Tablet PO PRN (08:14)
[2016-03-02 10:25] VITALS: BP 144/86; PULSE 89; RESP 16
[2016-03-02] MEDS ORDERED: LORazepam 1 mg Tablet PO PRN (10:50)
[2016-03-02] MEDS: LORazepam 2 mg Tablet PO SCH ×2 (11:25→20:58)
[2016-03-02] MEDS: ARIPiprazole 10 mg Tablet PO SCH (11:25)
--- NOTE | 2016-03-02 15:39 | NUR ---
nursing note 7am-7pm S)" I won't take lithium put me in the rubber room if you have to" O)pt cooperative with taking Abilify and Lorazepam states feels much better denies anxiety or depression "I did cry a little making a collage it had little girls in it reminded me of when my daughters were small" social on unit with peers, participated in all groups and art projects, ate meals, dressed and groomed appropriately A) compliant with current medications, pleasant, denies any problems P) monitor medication effects
--- NOTE | 2016-03-02 18:41 | NUR ---
Observations [id number] Pt was in dining area with peers when first observed. Pt spent the majority of the day participating in groups. She went outside and played football with peers, and completed a collage. Pt talked about her visit with her daughter, and cried a few times throughout they day when reflecting on past experiences. Pt ate 100% of meals. She was observed every 15 minutes of shift as directed.
[2016-03-02] MEDS: diphenhydrAMINE 25 mg Capsule PO SCH (20:58)
--- NOTE | 2016-03-02 22:57 | PCM.PNPSY ---
Subjective Date of Service Mar 02, 2016 Subjective Patient refused lithium and clonazepam. Discussed switching to aripiprazole and prior good response to 20mg, patient agreeable. Patient stated that she did not want to take clonazepam as she was allergic to it, but did agree to take lorazepam and cross taper. We discussed cross-tapering from haloperidol over the next few days and the patient was agreeable. Patient still quite hostile in the morning, but much more pleasant by the afternoon. Occupied self with making collages most of the day. Sleep: 7+ Appetite: "okay" Suicidal and homicidal ideation: denies Auditory hallucinations: denies Visual hallucinations: denies Other Psychotic Symptoms: paranoid, hostile Anxiety: unable to assess Depression: unable to assess Current Medications Current Medications Aripiprazole 20 mg DAILY PO Last administered on 03/02/16 11:25; Admin Dose 20 MG; Start 03/02/16 at 10:50 [place] Carbonate 450 mg BID PO Last administered on 03/01/16 08:00; Admin Dose 450 MG; Start 02/29/16 at 20:30; Stop 03/02/16 at 10:58; Status DC Lorazepam 2 mg BID PO Last administered on 03/02/16 11:25; Admin Dose 2 MG; Start 03/02/16 at 10:50; Stop 03/05/16 at 20:31 Mental Status Exam Appearance: Neat/well groomed Attitude: Hostile/Threatening Behavior: Other (as above) Affect: Restricted Mood: Irritable, Other (angry) Thought Process/Associations: Goal Directed, Other (poverty of speech) Speech Production: Paucity Speech Rate: Normal Speech Articulation: Normal Thought Content: Suspicious, Perseveration Danger to Self/Suicidal Ideati: None Danger to Others: None Delusions: Paranoid (Endorses) Hallucinations: Auditory (Denies), Visual (Denies) Consciousness: Alert Orientation: Unable to assess Memory: Grossly Intact, Untestable Estimate Intellectual Function: Average Attention/Concentration & Cogn: Impaired Insight: Limited Judgement: Limited Result Diagram: 02/29/1671902/29/16719 Mental Health Plan The patient is a 55-year-old white female with a history of severe bipolar mood disorder with psychosis. She has been admitted to multiple inpatient psychiatric hospitals throughout the state over the past 15 years. When she takes her medications, low-dose Klonopin, Haldol and lithium, she tends to do quite well. She apparently has been off medications for an unclear amount of time and has developed a manic episode. Historically, when manic, she tends to have a hyperreligious, hypersexual focus with paranoia and extreme irritability. She tends to threaten other people. Her current admission appears to be consistent with this pattern. Despite being engaged in outpatient services, she has difficulty with medication adherence and may benefit from a long-acting neuroleptic but is currently decompensated and unable to have this discussion. The patient remains quite paranoid and hostile and reports an allergy though will not allow this policy writer sales or others to see her today and it was assessed over the night and no sign of rash was found. Her laboratory studies indicate her lithium level is low. No other significant findings. She refused lithium last night and had a low-level indicating low likelihood of serious problem with discontinuation. Although patient hostile, she is agreeable to cross-tapering to aripiprazole and lorazepam as she had responded well to this regimen in the past. [place] AXIS I 1. Bipolar mood disorder, manic with psychotic features. 2. Posttraumatic stress disorder. 3. History of polysubstance abuse. AXIS II Defer. AXIS III 1. Hypertension. 2. Insulin-dependent diabetes mellitus. 3. Hypothyroidism. 4. Obesity. AXIS IV severe with poor coping skills, recent family discord, poor coping skills AXIS V Current global assessment of functioning equal to 25. Medications [place] 300 mg twice a day Prazosin 3 mg at bedtime Klonopin 1 mg twice a day and 2 mg at bedtime Haldol 10 mg bedtime Treatments 1. The patient is encouraged to participate with group and milieu therapy. 2. The patient is encouraged to continue medications as prescribed. 3. The patient will meet with the treatment team on a daily basis to assess symptoms, side effects, and response to treatment. 4. Cross taper from haloperidol to aripiprazole 20mg daily 5. Switch clonazepam to lorazepam and taper over coming days. 6. Consider long-acting injectable medication to assist with medication adherence in the community. 7. Anticipated length of stay 10-14 days. Jez Stephens MD Mar 02, 2016 19:28
[2016-03-03] MEDS: Benzocaine-Menthol Lozenge 2/Pkg PO PRN (03:27)
--- NOTE | 2016-03-03 04:51 | NUR ---
Nursing Noc Pt out in rec room at beginning of shift working on collage, talkative and euphoric. Later during evening Violet behaved as an patient advocate for others in a more obtrusive loud manner. Pt to sleep at 0000 then awake around 0300 and very agitated, angry, and verbally abusive to staff. Continuing to monitor sleep times, with Q15 minute safety checks, mood, behavior, emotional state, and medications.
--- NOTE | 2016-03-03 05:30 | NUR ---
Pt out on unit much of shift. Slept little asleep 0000-130, 400. Pt asleep 0030-300. Pt observed every 15 minutes as ordered.
[2016-03-03] MEDS: Pantoprazole 40 mg ER24 Tablet PO SCH (07:51)
[2016-03-03] MEDS: LORazepam 2 mg Tablet PO SCH ×2 (09:14→21:29)
[2016-03-03] MEDS: ARIPiprazole 10 mg Tablet PO SCH (09:15)
[2016-03-03 09:30] VITALS: BP 125/73; PULSE 86; RESP 16
--- NOTE | 2016-03-03 13:08 | NUR ---
Nursing Dayshift: S: "I'll have a good afternoon after you leave." O: Patient currently irritable at this staff. Earlier in the shift had been appreciative and positive. Has been out of her room much of the shift interacting with peers and staff. Eating well at meals. Ambulating the lam. Denies anxiety, depression, harmful thoughts, and hallucinations. A: Pleasant then irritable. A little pressured. P: CPOC. Monitor mood and behavior.
--- NOTE | 2016-03-03 19:08 | PCM.PNPSY ---
Subjective Date of Service Mar 03, 2016 Subjective The patient reports that she is allergic to Vistaril and cannot take it and would prefer to be on Benadryl. The patient also reports abdominal gas. Discussed using simethicone for gas patient agreeable. The patient stated she would like fasting lipids and hemoglobin A1c which would be faxed to Dr. Benoit at [facility]. She denies other side effects and reports her mood is improving. She is pleasant and cooperative with the treatment team this morning Sleep: 3+ hours. Appetite: Good Suicidal and homicidal ideation: Denies Auditory hallucinations: Denies Visual hallucinations: Denies Other Psychotic Symptoms: Paranoia Current Medications Current Medications Aripiprazole 20 mg DAILY PO Last administered on 03/03/16 09:15; Admin Dose 20 MG; Start 03/02/16 at 10:50 Haloperidol 5 mg HS PO Last administered on 03/02/16 21:07; Admin Dose 5 MG; Start 03/02/16 at 21:00; Stop 03/09/16 at 21:01 Lorazepam 2 mg BID PO Last administered on 03/03/16 09:14; Admin Dose 2 MG; Start 03/02/16 at 10:50; Stop 03/05/16 at 20:31 Mental Status Exam Appearance: Neat/well groomed Attitude: Cooperative, Guarded Behavior: Other (irritable but cooperates) Affect: Restricted Mood: Irritable Thought Process/Associations: Logical/Sequential, Goal Directed Speech Production: Normal Speech Rate: Normal Speech Articulation: Normal Thought Content: Suspicious, Perseveration Danger to Self/Suicidal Ideati: None Danger to Others: None Delusions: Paranoid (Endorses) Hallucinations: Auditory (Denies), Visual (Denies) Consciousness: Alert Orientation: Person, Place, Date, Situation Memory: Grossly Intact, Untestable Estimate Intellectual Function: Average Attention/Concentration & Cogn: Impaired Insight: Limited Judgement: Limited Result Diagram: 02/29/1671902/29/16719 Mental Health Plan The patient is a 55-year-old white female with a history of severe bipolar mood disorder with psychosis. She has been admitted to multiple inpatient psychiatric hospitals throughout the state over the past 15 years. When she takes her medications, low-dose Klonopin, Haldol and lithium, she tends to do quite well. The patient is also responded well to aripiprazole in the past. She apparently has been off medications for an unclear amount of time and has developed a manic episode. Historically, when manic, she tends to have a hyperreligious, hypersexual focus with paranoia and extreme irritability. She tends to threaten other people. Her current admission appears to be consistent with this pattern. Despite being engaged in outpatient services, she has difficulty with medication adherence and may benefit from a long-acting neuroleptic but is currently decompensated and unable to have this discussion. The patient was agreeable to cross tapering to aripiprazole and reports no side effects from this medication this time. Since discontinuation of lithium with decrease of haloperidol, she seems less irritable and paranoid. Anxiety appears reduced as well. She remains somewhat hostile. [place] AXIS I 1. Bipolar mood disorder, manic with psychotic features. 2. Posttraumatic stress disorder. 3. History of polysubstance abuse. AXIS II Defer. AXIS III 1. Hypertension. 2. Insulin-dependent diabetes mellitus. 3. Hypothyroidism. 4. Obesity. AXIS IV severe with poor coping skills, recent family discord, poor coping skills AXIS V Current global assessment of functioning equal to 25. Medications Aripiprazole 20 mg daily Prazosin 3 mg at bedtime Klonopin 1 mg twice a day and 2 mg at bedtime Haldol 5 mg bedtime as cross taper which will discontinue in 4 days. Treatments 1. The patient is encouraged to participate with group and milieu therapy. 2. The patient is encouraged to continue medications as prescribed. 3. The patient will meet with the treatment team on a daily basis to assess symptoms, side effects, and response to treatment. 4. Cross taper from haloperidol to aripiprazole 20mg daily 5. Benadryl 50 mg every 6 hours for anxiety. 6. Simethicone for abdominal gas 7. Fasting lipids and hemoglobin A1c in a.m. 8. Consider long-acting injectable medication to assist with medication adherence in the community. 9. Anticipated length of stay 10-14 days. Jez Stephens MD Mar 03, 2016 19:08
--- NOTE | 2016-03-03 20:35 | NUR ---
Explosive Operator Supervisor/Counselor: S/O: Patient only slept 3+ hours last night as per staff. She denies S/I and H/I. She also denies auditory and visual hallucinations. She did not rate depression and anxiety. A: Patient is cooperative, guarded, restricted affect, irritable at times, suspicious, paranoid, limited insight, poor judgment. P: Follow care plan coordinate out-patient providers.
--- NOTE | 2016-03-03 20:39 | NUR ---
Continuity Clerk/Counselor: S: "I miss my children and grandchildren." O: Patient only slept 3.75+ hours last night as per staff. She denies S/I and H/I. She also denies auditory and visual hallucinations. Depression is 0/10 and anxiety is 0/10. A: Patient is cooperative, guarded, restricted affect, irritable at times, suspicious, paranoid, limited insight, poor judgment. P: Follow care plan coordinate out-patient providers.
--- NOTE | 2016-03-03 20:43 | NUR ---
Observations 0900 to 2130 Pt affect and mood was friendly, content and social. Pt speech and eye contact was ok. Pt remained in his room most of the day. Pt was social with staff a d select peers when approached. Pt attended meals in D.R. and ate 100% of all meals. Pt maintained behavior throughout the shift. Pt was polite pleasant and cooperative. Pt went out on patio with peers to get some fresh air. Pt worked on arts and [employer] project. Pt was observed every 15 minutes throughout the shift as ordered. Pt is currently in her room talking on the phone.
--- NOTE | 2016-03-04 05:18 | NUR ---
Pt out on unit in evening. Slept 2345-315,400. Pt showered and interacted appropriately. Pt observed every 15 minutes as ordered.
--- NOTE | 2016-03-04 05:39 | NUR ---
nursing, nights, 11-7 s/o- has appeared to sleep after 2345. up to the toilet at 0315 and for water at 0450. easily returned to sleep. assessed q 15 minutes. a- no apparent distress. p- monitor behavior/emotional state, quality, times and amount of sleep, use and effect of medication. yolanda
[2016-03-04] MEDS: Pantoprazole 40 mg ER24 Tablet PO SCH (09:00)
[2016-03-04] MEDS: LORazepam 2 mg Tablet PO SCH ×2 (09:01→20:19)
[2016-03-04] MEDS: ARIPiprazole 10 mg Tablet PO SCH (09:01)
--- NOTE | 2016-03-04 11:16 | PROG NOTE ---
[address] [address] PROGRESS NOTE PATIENT: COLE REID : [id number] MR#: [id number] ADMIT: 02/22/2016 JOB ID: [id number] DATE: 03/04/2016 SUBJECTIVE: A 55-year-old lady hospitalized involuntarily on this unit on what appears to be February 22, 2016. DIAGNOSIS: Psychosis, not otherwise specified, most likely, bipolar 1 manic with psychosis versus schizoaffective disorder. On axis III we have hypothyroidism, diabetes, GERD, hypertension, hyperlipidemia. She is presently on metformin 1000 b.i.d. and glipizide. Her blood sugars at times can be low. Her appetite was erratic earlier. It is better now. She admits that she needs to be here for her bipolar. She is still paranoid but no hallucinations. Appetite is better like I said earlier. Six hours of good sleep. No p.r.n.'s used. Insight, like I said, is very limited. She is on lorazepam on a reducing dose which is supposed to be reduced to 1 mg b.i.d. as of the . Haldol 5 mg at night and Abilify 20 mg a day. I think they are in the process of reducing the Haldol and increasing the Abilify and prazosin 3 mg at night. Continue to educate her regarding the medications, the role they play. Work with her blood sugars. May need to have the hospitalist involved if her blood sugar drops. We are doing it twice a day. We will continue to encourage her to participate in the treatment modalities of the unit. No acute pain issues.
[2016-03-04 12:29] VITALS: BP 120/64; PULSE 80; RESP 16
[2016-03-04] MEDS: Magnesium Hydroxide 10 mL Oral Concentration PO PRN (14:27)
--- NOTE | 2016-03-04 15:37 | NUR ---
Senior Interactive Producer./ c.m. S.:"I'm not 55, I will be 57. I'm not taking Haldol - I am allergic to Haldol! I'm not increasing my Abilify. I don't need a high dose of it!.. " O.: met with pt. and MD together in the Dining room. She refused to go to a private room and she wanted other peers to be present during this conversation. She said that she needed "to be here for my Bipolar." She couldn't explain anything more. She didn't want to change her meds or to discuss a dose of her meds. She was making random unrelated comments. She denied SI/HI. She couldn't carry on a conversation. She became irritable very quickly and it was difficult to continue the conversation. A.: pt. is easily agitated, unpredictable, confused and has a short attention. She is social with peers and looks restless. P.: monitor behavior, provide safety in the unit, monitor meds intake; follow care plan.
--- NOTE | 2016-03-04 16:04 | NUR ---
Nursing Dayshift: S: "I don't want to talk to you. I've got nothing to say to you." O: Patient approaches this staff when needs are an issue. Otherwise has made the above statement when approached by this staff. Eating well at meals. Pleasant at times and other times irritable towards select staff and peers. Attending unit activities. Does not allow assessing of SI/HI/AH/VH. No complaints of these. A: Some lability of mood. P: CPOC. Monitor mood and behavior.
--- NOTE | 2016-03-04 20:52 | NUR ---
Observations 0900 to 2130 Pt affect and mood was friendly, content and social. Pt speech and eye contact was good. Pt was social with staff and select peers when approached. Pt attended meals in D.R. and ate approximately 50% of all meals. Pt ate snacks. Pt maintained behavior throughout the shift. Pt was polite pleasant and cooperative. Pt went out on patio with peers to get some fresh air. Pt daughter came to visit her and it appeared to go well. Pt daughter brought her some belongings. Pt was emotional during visit. Pt worked on arts and crafts project. Pt played ping pong with peers. Pt walked the hallway for exercise. Pt was observed every 15 minutes throughout the shift as ordered.
--- NOTE | 2016-03-05 06:20 | NUR ---
Pt out on unit in evening. Slept 2315-430. Pt showered and interacted appropriately. Pt observed every 15 minutes as ordered.
--- NOTE | 2016-03-05 06:37 | NUR ---
Nursing Note NOC Patient slept from 2315, up at 0253 briefly. Slept [id number] and up since then. Tearful at times about photos of family and small child. Put pictures up in room and was pleased to show staff her art work. 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 Agreeable and expresses appreciation. Does not want to take Haldol. BS 70 at .
[2016-03-05] MEDS: LORazepam 2 mg Tablet PO SCH ×2 (08:38→21:38)
[2016-03-05] MEDS: Pantoprazole 40 mg ER24 Tablet PO SCH (08:39)
[2016-03-05] MEDS: ARIPiprazole 10 mg Tablet PO SCH (08:40)
[2016-03-05 13:21] VITALS: BP 128/75; PULSE 83; RESP 22
--- NOTE | 2016-03-05 13:51 | NUR ---
Filing Machine Operator./c.m. S.:"Let's keep it short and sweet... " O.: met with pt. and MD together. Pt. had only 4 hrs of interrupted sleep last night but she believed that she "slept 6 hrs and it was great!" She denied SI/HI, denied AH/VH. She wanted to make sure that her "diabetes checked, hemoglobin checked and thyroid checked." She refused to tell about her visit with her daughter yesterday - "It's not your business!" She didn't want to discuss anything else. She spent a lot of time in the public area talking to different peers and giving them advise regarding different issues. A.: pt. is partially cooperative, unpredictable, easily agitated, social with peers, manipulative. P.: monitor behavior, monitor meds intake, provide clear information about rules and expectations in the unit; follow care plan.
--- NOTE | 2016-03-05 16:42 | NUR ---
Nursing Dayshift: S: "Look at this? I'm going to put it in my collage." O: Patient talking about a collage she is working on today. Social with peers and staff. Good appetite at meals. Ambulating halls often today. No belligerent comments noted today. Smiles during interaction. Med compliant. No s/sx of hypoglycemia. A: Brighter affect. P: CPOC. Monitor mood and behavior.
--- NOTE | 2016-03-05 18:44 | NUR ---
Observations [id number] Pt was asleep upon start of shift. Pt was very active on unit, participating in group activities and playing ping pong. Pt walked the unit for exercise and colored in the dining area. Pt completed art project and hung it in her room. Pt ate 100% of meals and was friendly with peers and staff. She was observed every 15 minutes of shift as directed.
[2016-03-05] MEDS: diphenhydrAMINE 50 mg Capsule PO PRN (23:07)
--- NOTE | 2016-03-06 05:19 | NUR ---
Nursing Note NOC Patient slept for 4+ hours; up at 0415 for water and to talk with male peer. PRNs: Benadryl 50 mg at 2307, and Ativan 2 mg at 2138. c/o itching lower limbs and swelling. Benadryl effective. Elevated legs, effective. Continue to monitor. Every 15 minute room checks done throughout NOC shift.
--- NOTE | 2016-03-06 06:14 | NUR ---
Pt out on unit in evening. Slept 0030. Pt showered and interacted appropriately. Pt observed every 15 minutes as ordered.
--- NOTE | 2016-03-06 08:05 | PROG NOTE ---
[address] [address] PROGRESS NOTE PATIENT: COLE REID : [id number] MR#: [id number] ADMIT: 02/22/2016 JOB ID: [id number] DATE: 03/05/2016 CHIEF COMPLAINT/IDENTIFICATION: lady hospitalized involuntarily on this unit February 22, 2016. DIAGNOSIS: [place] IPsychosis, not otherwise specified. [place] IIIHypothyroidism, diabetes, gastroesophageal reflux disease, hypertension, hyperlipidemia. Patient seen, discussed with staff. About 5+ hours of sleep, still irritable, split staff. Blood sugar 140 this morning. Limited insight not only into her illness but also the need for treatment. Encouraged her to participate in the treatment modalities of the unit. She is going to need further adjustment of Abilify increased upwards and then maybe taper off the Haldol. She also will need referral after discharge possibly to place back into dialectic behavior therapy. At this point, has still some insight into her behavior. Keep the meds as they are for now.
[2016-03-06] MEDS: ARIPiprazole 10 mg Tablet PO SCH (08:31)
[2016-03-06] MEDS: LORazepam 1 mg Tablet PO SCH ×2 (08:31→22:04)
[2016-03-06] MEDS: Pantoprazole 40 mg ER24 Tablet PO SCH (08:32)
[2016-03-06] MEDS: Magnesium Hydroxide 10 mL Oral Concentration PO PRN ×2 (09:34→19:49)
[2016-03-06 10:35] VITALS: BP 118/55; PULSE 81; RESP 16
--- NOTE | 2016-03-06 10:47 | NUR ---
Nursing: S: I have an ingrown toenail. O: Sanjuanita was up early, out on the open unit dressed and groomed neatly. She interacted appropriately with peers in a coloring group activity during the morning. Not actiing irritable, sarcastic, or demanding. Took meds as offered. PRN: Requested and received MOM 10 ml concentrate for constipation. A: Behavior is improving. P: Continue to assess for effectiveness of current medications. Addendum: 03/06/16 at 1054 by RENITA HARTMANN RN Amended: Links added. Addendum: 03/06/16 at 1941 by RENITA HARTMANN RN Update: Pt. reports that she had a "small BM" this a.m. She feels that she needs more MOM yet. Has been doing laps in the lam. Continues to be active in group room with peers. No further requests for prn meds during shift.
--- NOTE | 2016-03-06 15:01 | PCM.PNPSY ---
Subjective Date of Service Mar 06, 2016 Subjective I spent 30 minutes both reviewing treatment plan and providing supportive/ educational psychotherapy. I spent less than 50% of the time counseling the patient as Violet could only tolerate several minutes before becoming hostile and storming away. I was not able to review the treatment plan with the patient nor discuss options available including the potential risks, benefits and side effects. Malu reports that she is fine and does not wish to have me as a physician. Staff reports that she has less hostile and is beginning to participate in one- to-one unit and group activities. She slept for hours . She denies medication side effects. She continues to have multiple symptoms of yahaira including distractibility, severe irritability, and paranoia., Patient was able to identify her medications and what they were used to treat. She appeared to understand the need for medications by the questions she asked during our discussion. Current Medications Current Medications Lorazepam 1 mg BID PO Last administered on 03/06/16t 08:31; Admin Dose 1 MG; Start 03/06/16 at 08:30; Stop 03/08/16 at 20:31 Mental Status Exam Appearance: Neat/well groomed Attitude: Guarded Behavior: Other (irritable ) Affect: Restricted Mood: Irritable Thought Process/Associations: Logical/Sequential, Goal Directed Speech Production: Normal Speech Rate: Normal Speech Articulation: Normal Thought Content: Suspicious, Perseveration Danger to Self/Suicidal Ideati: None Danger to Others: None Delusions: Paranoid (Endorses) Hallucinations: Auditory (Denies), Visual (Denies) Consciousness: Alert Orientation: Person, Place, Date, Situation Memory: Grossly Intact, Untestable Estimate Intellectual Function: Average Attention/Concentration & Cogn: Impaired Insight: Limited Judgement: Limited Result Diagram: 02/29/1671902/29/16719 Mental Health Plan The patient is a 55-year-old white female with a history of severe bipolar mood disorder with psychosis. She has been admitted to multiple inpatient psychiatric hospitals throughout the state over the past 15 years. When she takes her medications, low-dose Klonopin, Haldol and lithium, she tends to do quite well. She apparently has been off medications for an unclear amount of time and has developed a full-blown yahaira (although there is report that she was recently In [facility] until several days prior to our admission). When she is manic, she tends to have a hyperreligious, hypersexual focus with paranoia and extreme irritability. She tends to threaten other people. This has been especially difficult for the people in her life including her and close friends. She has been trying to manage with outpatient services. However, has continued to decompensate since discharging from multiple different units. I believe she would benefit from a long-acting neuroleptic, although at this time, she is not cooperative in any manner. Since I last saw her 7 days ago she is less paranoid and less pressured but continues to be highly irritable And is focusing on other people being the source of her problem. She is willing to take medications But I do not believe that she will remain on these after discharge based on the content of our conversations. [place] AXIS I 1. Bipolar mood disorder, manic with psychotic features. 2. Posttraumatic stress disorder. 3. History of polysubstance abuse. AXIS II Defer. AXIS III 1. Hypertension. 2. Insulin-dependent diabetes mellitus. 3. Hypothyroidism. 4. Obesity. AXIS IV severe with poor coping skills, recent family discord, poor coping skills AXIS V Current global assessment of functioning equal to 30. Medications Aripiprazole 20 mg daily Prazosin 3 mg at bedtime Klonopin 1 mg twice a day and 2 mg at bedtime Haldol 5 mg bedtime as cross taper which will discontinue in 4 days. Treatments 1. The patient is encouraged to participate with group and milieu therapy. 2. The patient is encouraged to continue medications as prescribed. 3. The patient will meet with the treatment team on a daily basis to assess symptoms, side effects, and response to treatment. 4. Cross taper from haloperidol to aripiprazole 20mg daily 5. Benadryl 50 mg every 6 hours for anxiety. 6. Simethicone for abdominal gas 7. Fasting lipids and hemoglobin A1c in a.m. 8. Consider long-acting injectable medication to assist with medication adherence in the community. 9. Anticipated length of stay 7 days. Liam Dobbins MD Mar 06, 2016 15:01
--- NOTE | 2016-03-06 18:27 | NUR ---
Observations [id number] Pt was asleep upon start of shift. Pt was very active in groups, working on art. She appeared to remain positive throughout the day, however did bring up a few childhood memories which brought her to tears. Pt was easily re-directed and was able to remain positive. Pt ate 100% of meals, spent time walking the halls and went outside. She was social with peers and staff. She was observed every 15 minutes of shift as directed.
--- NOTE | 2016-03-06 22:10 | NUR ---
REFUSED HS MEDICATIONS Pt. refused her scheduled Haldol and Prazosin this evening. She stated "that Prazosin is the pill that swelled me up this morning, you can't make me take that again!" and refused the Haldol stating "the doctors here don't know what they're doing and I'm allergic to that pill and that's the one that gave me diabetes". Education provided. Agreeable to take her scheduled Atorvastatin and Ativan.
[2016-03-07] MEDS: diphenhydrAMINE 50 mg Capsule PO PRN (02:21)
--- NOTE | 2016-03-07 03:46 | NUR ---
Observations 1900 to 0700 Pt spent her night watching TV and socializing. Pt did take a shower again last night. Pt was polite and cooperative. Pt hung out in the DR talking to peers for awhile. Pt first appeared asleep at 00:15 and was observed every 15 minutes through the night as directed.
--- NOTE | 2016-03-07 06:08 | NUR ---
NOC Shift Slept only 1.75 hours off and on, up and down hallways most of shift, attempted many times to interact with staff. Gave 50mg Benadryl to help with sleep and itching with minimal results. Encouraged to lay down and rest. Interaction with Regulo several times this shift.
[2016-03-07] MEDS: Pantoprazole 40 mg ER24 Tablet PO SCH ×2 (07:30→08:07)
[2016-03-07] MEDS: LORazepam 1 mg Tablet PO SCH ×2 (08:07→20:30)
[2016-03-07] MEDS: ARIPiprazole 10 mg Tablet PO SCH (08:08)
--- NOTE | 2016-03-07 10:28 | NUR ---
Nursing: Day note S: Sanjuanita is very verbal this morning after having not slept last night except for 1.75 hours. She contradicted another patient who stated she was awake and Sanjuanita claimed that she had walked the halls and could prove that peer was asleep. Another pt stated that Sanjuanita told her not to take morning meds. See addendum below for more day shift note. Addendum: 03/07/16 at 1635 by RENITA HARTMANN RN Afternoon update: Sanjuanita attended p.m. group for about 75% of the time. She was lying on had awake when checked by remote mortgage underwriter within 5 minutes of being seen by Dr Linares for second opinion. later she told another staff that she had been sound asleep, dreaming about a male staff member here, when awakened by Dr. Linares. After being informed that she needed to take haldol po as ordered, she talked about it briefly in an irritated manner as she waled through the dining room but did NOT have a prolonged period of acting out or behavioral dyscontrol about that information. has been doing walking laps in the lam this afternoon. P: Offer po Haldol as ordered HS. Give IM if pt refuses.
[2016-03-07 10:52] VITALS: BP 143/81; PULSE 82; RESP 17
--- NOTE | 2016-03-07 14:26 | PCM.PNPSY ---
Subjective Date of Service Mar 07, 2016 Subjective I spent 20 minutes both reviewing treatment plan and providing supportive/ educational psychotherapy. I spent less than 50% of the time counseling the patient as Violet could only tolerate several minutes before becoming hostile and am beginning to posture in a threatening manner. I was not able to review the treatment plan with the patient nor discuss options available including the potential risks, benefits and side effects. Malu reports that she is fine and does not wish to have me as a physician. She wants all of her medications stopped except Abilify. She was confused about the medications. She believed medications have been decreased when they had not. It basically seemed like she was trying to start a fight throughout the conversation. Staff reports that she has been more hostile over the past 24 hours. She slept for only 1.75 hours . She continues to have multiple symptoms of yahaira including distractibility, severe irritability, and paranoia., Patient was able to not able to identify her medications nor what they were used to treat. Current Medications Current Medications Lorazepam 1 mg BID PO Last administered on 03/07/16t 08:07; Admin Dose 1 MG; Start 03/06/16 at 08:30; Stop 03/08/16 at 20:31 Mental Status Exam Vital Signs Vital Signs Date Time Temp Pulse Resp B/P Pulse Ox O2 Delivery O2 Flow Rate FiO2 03/07/16 10:52 35.7 82 17 143/81 Appearance: Neat/well groomed Attitude: Guarded Behavior: Other (irritable ) Affect: Restricted Mood: Irritable Thought Process/Associations: Logical/Sequential, Goal Directed Speech Production: Normal Speech Rate: Normal Speech Articulation: Normal Thought Content: Suspicious, Perseveration Danger to Self/Suicidal Ideati: None Danger to Others: None Delusions: Paranoid (Endorses) Hallucinations: Auditory (Denies), Visual (Denies) Consciousness: Alert Orientation: Person, Place, Date, Situation Memory: Grossly Intact, Untestable Estimate Intellectual Function: Average Attention/Concentration & Cogn: Impaired Insight: Limited Judgement: Limited Mental Health Plan The patient is a 55-year-old white female with a history of severe bipolar mood disorder with psychosis. She has been admitted to multiple inpatient psychiatric hospitals throughout the state over the past 15 years. When she takes her medications, low-dose Klonopin, Haldol and lithium, she tends to do quite well. She apparently has been off medications for an unclear amount of time and has developed a full-blown yahaira (although there is report that she was recently In [facility] until several days prior to our admission). When she is manic, she tends to have a hyperreligious, hypersexual focus with paranoia and extreme irritability. She tends to threaten other people. This has been especially difficult for the people in her life including her and close friends. She has been trying to manage with outpatient services. However, has continued to decompensate since discharging from multiple different units. I believe she would benefit from a long-acting neuroleptic, although at this time, she is not cooperative in any manner. Today she is more paranoid and pressured and has been highly irritable. She is focusing on other people being the source of her problem. She is not willing to take medications as prescibed. I requested and got a second opinion for medication override. Patient will be given medications IM if she is unable to take the by mouth [place] AXIS I 1. Bipolar mood disorder, manic with psychotic features. 2. Posttraumatic stress disorder. 3. History of polysubstance abuse. AXIS II Defer. AXIS III 1. Hypertension. 2. Insulin-dependent diabetes mellitus. 3. Hypothyroidism. 4. Obesity. AXIS IV severe with poor coping skills, recent family discord, poor coping skills AXIS V Current global assessment of functioning equal to 30. Treatments 1. The patient is encouraged to participate with group and milieu therapy. 2. The patient is encouraged to continue medications as prescribed. 3. The patient will meet with the treatment team on a daily basis to assess symptoms, side effects, and response to treatment. 4. Meds: Decrease Aripiprazole to 10 mg daily as Haldol is again increased. Discontinue Prazosin 3 mg at bedtime as patient believes this is causing her to be itchy Klonopin 1 mg twice a day and 2 mg at bedtime, if refuses give 2mg ativan tid. Haldol 10 mg bedtime po or IM at bedtime Benadryl 50 mg at bedtime by mouth or IM 5. Benadryl 50 mg every 6 hours for anxiety or EPS oral daily dose not to exceed 250 mg. 6. Simethicone for abdominal gas 7. Fasting lipids and hemoglobin A1c in a.m. 8. Consider long-acting injectable medication to assist with medication adherence in the community. 9. Anticipated length of stay 7 days. Liam Dobbins MD Mar 07, 2016 14:26
[2016-03-07] MEDS ORDERED: Haloperidol Decanoate 50 mg/mL Inj IM PRN (14:30)
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
--- NOTE | 2016-03-07 20:00 | NUR ---
Nurses Note Evening Seclusion Patient placed in seclusion after verbally threatening and physically aggressive behaviors to staff. She received IM Haldol 10mg,Ativan 2mg,Benadryl 50mg IM with security assist. Patient remains agitated yelling at staff. Seclusion continued, refer to flow sheets.
[2016-03-07] MEDS: Haloperidol 5 mg/mL Inj IM PRN (20:01)
[2016-03-07] MEDS ORDERED: diphenhydrAMINE 50 mg Capsule PO SCH (21:00)
--- NOTE | 2016-03-07 22:00 | NUR ---
Nurses Note Evening Patient remains in seclusion. She remains hostile and unable to process reason for seclusion stating "I don't have to tell you anything bitch."She remains on 1:1 for safety.
--- NOTE | 2016-03-07 22:30 | NUR ---
Nurses Note Evening Seclusion Discontinued Seclusion discontinued and patient returned to her room and was asleep. Vital signs stable. KW=538/68,P=91,R=20,O2 sat=94%. Patient to be debriefed in am.Will maintain q 15min. checks for safety. Addendum: 03/07/16 at 3918 by SUZETTE VALDES RN Amended: Links added.
[2016-03-07 22:42] VITALS: BP 113/68; PULSE 92; RESP 20
--- NOTE | 2016-03-08 04:05 | NUR ---
NURSING NIGHT NOTE Patient has been sleeping most of the night, occasionally getting up to pace but returns to room without need for redirection. Will continue to monitor patient for safety and appropriate behavior.
[2016-03-08] MEDS: Pantoprazole 40 mg ER24 Tablet PO SCH (07:39)
[2016-03-08] MEDS: LORazepam 1 mg Tablet PO SCH ×2 (07:57→21:58)
[2016-03-08] MEDS ORDERED: ARIPiprazole 10 mg Tablet PO SCH (08:30)
[2016-03-08] MEDS: Haloperidol 5 mg/mL Inj IM PRN (11:37)
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
--- NOTE | 2016-03-08 13:19 | PCM.PNPSY ---
Subjective Date of Service Mar 08, 2016 Subjective I spent 20 minutes both reviewing treatment plan and providing supportive/ educational psychotherapy. I spent less than 50% of the time counseling the patient as Violet could only tolerate several minutes before becoming hostile and am beginning to posture in a threatening manner. She threatened to physically assault me and screamed as I left the unit a string of curse words. I was not able to review the treatment plan with the patient nor discuss options available including the potential risks, benefits and side effects. Malu was escorted to the low stimulation unit. She wants all of her medications stopped except Abilify. She was confused about the medications. Staff reports that she has been more hostile over the past 24 hours. She slept for only 3 hours . She continues to have multiple symptoms of yahaira including distractibility, severe irritability, and paranoia. Patient was able to not able to identify her medications nor what they were used to treat. Current Medications Current Medications Aripiprazole 10 mg DAILY PO Last administered on 03/08/16 07:57; Admin Dose 10 MG; Start 03/08/16 at 08:30; Stop 03/08/16 at 13:10; Status DC Diphenhydramine HCl 50 mg ONCE PRN IM Last administered on 03/08/16 11:36; Admin Dose 50 MG; Start 03/07/16 at 14:30 Haloperidol Lactate 10 mg DAILY PRN IM Last administered on 03/08/16 11:37; Admin Dose 10 MG; Start 03/07/16 at 15:45 Lorazepam 2 mg STK-MED ONCE .ROUTE Last administered on 03/07/16 21:01; Admin Dose 2 MG; Start 03/07/16 at 20:07; Stop 03/07/16 at 20:08; Status DC Lorazepam 2 mg STK-MED ONCE .ROUTE Last administered on 03/08/16 11:36; Admin Dose 2 MG; Start 03/08/16 at 11:10; Stop 03/08/16 at 11:11; Status DC Mental Status Exam Appearance: Neat/well groomed Attitude: Guarded, Uncooperative, Hostile/Threatening Behavior: Other (irritable ) Affect: Labile Mood: Irritable Thought Process/Associations: Logical/Sequential, Goal Directed Speech Production: Normal Speech Rate: Normal Speech Articulation: Normal Thought Content: Suspicious, Perseveration Danger to Self/Suicidal Ideati: None Danger to Others: None Delusions: Paranoid (Endorses) Hallucinations: Auditory (Denies), Visual (Denies) Consciousness: Alert Orientation: Person, Place, Date, Situation Memory: Grossly Intact, Untestable Estimate Intellectual Function: Average Attention/Concentration & Cogn: Impaired Insight: Limited Judgement: Poor Mental Health Plan The patient is a 55-year-old white female with a history of severe bipolar mood disorder with psychosis. She has been admitted to multiple inpatient psychiatric hospitals throughout the [facility] over the past 15 years. When she takes her medications, low-dose Klonopin, Haldol and lithium, she tends to do quite well. She apparently has been off medications for an unclear amount of time and has developed a full-blown yahaira (although there is report that she was recently In [facility] until several days prior to our admission). When she is manic, she tends to have a hyperreligious, hypersexual focus with paranoia and extreme irritability. She tends to threaten other people. This has been especially difficult for the people in her life including her and close friends. She has been trying to manage with outpatient services. However, has continued to decompensate since discharging from multiple different units. I believe she would benefit from a long-acting neuroleptic, although at this time, she is not cooperative in any manner. Today she remains paranoid, pressured in thought and speech, and has been highly irritable. She is focusing on other people being the source of her problem. She is posturing in a threatening manner In making very specific threats to harm staff this staff member included. [place] AXIS I 1. Bipolar mood disorder, manic with psychotic features. 2. Posttraumatic stress disorder. 3. History of polysubstance abuse. AXIS II Defer. AXIS III 1. Hypertension. 2. Insulin-dependent diabetes mellitus. 3. Hypothyroidism. 4. Obesity. AXIS IV severe with poor coping skills, recent family discord, poor coping skills AXIS V Current global assessment of functioning equal to 30. Treatments 1. The patient is encouraged to participate with group and milieu therapy. 2. The patient is encouraged to continue medications as prescribed. 3. The patient will meet with the treatment team on a daily basis to assess symptoms, side effects, and response to treatment. 4. Meds: Discontinue Aripiprazole to 10 mg daily 1mg ativan bid. Haldol 10 mg twice a day po or IM at bedtime Benadryl 50 mg twice a day by mouth or IM 5. Benadryl 50 mg every 6 hours for anxiety or EPS oral daily dose not to exceed 250 mg. 6. Simethicone for abdominal gas 7. Fasting lipids and hemoglobin A1c in a.m. 8. Consider long-acting injectable medication to assist with medication adherence in the community. 9. Anticipated length of stay 7 days. Liam Dobbins MD Mar 08, 2016 13:19
[2016-03-08] MEDS: Magnesium Hydroxide 10 mL Oral Concentration PO PRN (15:05)
--- NOTE | 2016-03-08 17:59 | NUR ---
Tmd Teacher Assistant/Counselor: S: "I was bad and was put in the rubber room." O: Patient only slept 3 hours last night as per staff. She denies S/I and H/I. She also denies auditory and visual hallucinations. Depression is 2/10 and anxiety is 0/10. When asked her mood, patient stated, "I'm not sure." A: Patient is cooperative, hopeful, future oriented. P: Follow care plan coordinate out-patient providers.
[2016-03-08 18:04] VITALS: BP 112/65; PULSE 69; RESP 16
--- NOTE | 2016-03-08 19:34 | NUR ---
Obs Dayshift Pt started the shift irritable, fast pacing up and down the halls, glaring at staff. Pt starting being verbally aggressive and threatening toward staff. Pt was placed in Seclusion where she continued to be aggressive toward some staff and very polite w/ others. Pt had meds, lunch and some down time when she agreed to be calm, and try to be polite w/ staff. Pt continued to do well on the unit for the rest of this shift, was able to take a couple of short naps. Pt engages well with most peers, encouraging toward them, calm, polite. Aggressive toward staff, irritable, continues to refuse meds, stating that the Drs changed her meds and are giving her things that are going to kill her. Good ADL's, Good meals
[2016-03-08] MEDS: diphenhydrAMINE 50 mg Capsule PO SCH (21:59)
--- NOTE | 2016-03-09 05:26 | NUR ---
Pt out on unit in evening. Asleep 8130-300, 345. Pt observed every 15 minutes as ordered.
--- NOTE | 2016-03-09 05:44 | NUR ---
nursing, nights, 11-7 s- who's going to be here in the morning ? o- has appeared to sleep after 0045. up briefly at 0306 for a drink. socialized with staff and returned to bed appearing to sleep after 0345. assessed q 15 minutes. a- interrupted/inadequate sleep, generally appropriate with staff, no apparent distress. p- monitor behavior/emotional state, quality, times and amount of sleep, use and effect of medication. yolanda
[2016-03-09] MEDS: Pantoprazole 40 mg ER24 Tablet PO SCH (07:23)
[2016-03-09] MEDS: diphenhydrAMINE 50 mg Capsule PO SCH ×2 (08:39→20:55)
[2016-03-09] MEDS: LORazepam 1 mg Tablet PO PRN ×2 (12:57→20:59)
--- NOTE | 2016-03-09 16:34 | NUR ---
Nursing Dayshift: S: "And look at this collage I made yesterday? It fell off the wall last night. Can you bring me some duct tape tomorrow?" O: Patient showing this staff 3 different collages in her room this AM. Has been more approachable this AM. After lunch more irritable and accusatory of staff. "I know what you did!" Calmer later in the shift. Has been calmer later in the afternoon after receiving Ativan 2 mg PO at 1257 for increased anxiety and agitation. Good appetite at meals. Attending group activities. A: Overall improving. P: CPOC. Monitor mood and behavior.
--- NOTE | 2016-03-09 17:47 | NUR ---
Observations 0700 to 1900 Pt affect and mood was labile, irritable, preoccupied, unpredictable and intense. Pt speech and eye contact was good. Pt was social with peers. Pt attended meals in D.R. and ate approximately 100% of meals. Pt ate snacks. Pt maintained behavior throughout the shift. Pt was polite, pleasant and cooperative for the most part. Pt went out on patio with peers to get some fresh air. Pt attended groups and unit activities. Pt walked/paced the hallway for exercise. Pt was observed every 15 minutes throughout the shift as ordered.
[2016-03-09 18:15] VITALS: BP 164/76; PULSE 89; RESP 18
--- NOTE | 2016-03-09 18:50 | NUR ---
Business And Financial Counsel/Counselor: S: "I'm going to be on Oprah's show in the future." O: Patient only slept 5.25 hours last night as per staff. She denies S/I and H/I. She also denies auditory and visual hallucinations. Depression is 0/10 and anxiety is 0/10. When asked her mood, patient stated, "Good." Patient stated that she is naming the dining area, "[employer] and my imaginary boyfriend is coming to dinner." A: Patient is cooperative, pleasant, fair insight, fair judgment. P: Follow care plan coordinate out-patient providers.
--- NOTE | 2016-03-10 04:42 | NUR ---
Pt out on unit in evening. Asleep at 145. Pt showered and interacted appropriately. She tried to sleep earlier but noted not being able to due to another resident yelling and being too loud. Pt observed every 15 minutes as ordered.
--- NOTE | 2016-03-10 05:45 | NUR ---
nursing, nights, 11-7 s- can i have a snack. i have black and orange on because i'm a witch. o- difficulty sleeping. generally appropriate interaction with staff and peers. appeared to sleep after 0145 to. assessed q 15 minutes. a- inadequate sleep, no aggressive behavior, no apparent distress. p- monitor behavior/emotional state, quality, times and amount of sleep, use and effect of medication. yolanda
[2016-03-10] MEDS: Pantoprazole 40 mg ER24 Tablet PO SCH (08:13)
[2016-03-10] MEDS: diphenhydrAMINE 50 mg Capsule PO SCH ×2 (08:17→20:30)
[2016-03-10 09:20] VITALS: BP 114/74; PULSE 76; RESP 16
--- NOTE | 2016-03-10 11:24 | PCM.PNPSY ---
Subjective Date of Service Mar 09, 2016 Subjective I spent 20 minutes both reviewing treatment plan and providing supportive/ educational psychotherapy. I spent less than 50% of the time counseling the patient as Violet could only tolerate several minutes. I kept the session briefly in order to avoid her becoming hostile. She was confused about the medications. Staff reports that she has been less hostile over the past 24 hours. She slept for only 5.25 hours . She continues to have multiple symptoms of yahaira including distractibility, severe irritability, and paranoia. Patient was able to not able to identify her medications nor what they were used to treat. Current Medications Current Medications Aripiprazole 10 mg DAILY PO Last administered on 03/08/16 07:57; Admin Dose 10 MG; Start 03/08/16 at 08:30; Stop 03/08/16 at 13:10; Status DC Diphenhydramine HCl 50 mg BID PO Last administered on 03/09/16 08:39; Admin Dose 50 MG; Start 03/08/16 at 20:30 Diphenhydramine HCl 50 mg ONCE PRN IM Last administered on 03/08/16 11:36; Admin Dose 50 MG; Start 03/07/16 at 14:30 Haloperidol 10 mg BID PO Last administered on 03/09/16 08:39; Admin Dose 10 MG ; Start 03/08/16 at 20:30 Haloperidol Lactate 10 mg DAILY PRN IM Last administered on 03/08/16 11:37; Admin Dose 10 MG; Start 03/07/16 at 15:45 Lorazepam 2 mg STK-MED ONCE .ROUTE Last administered on 03/07/16 21:01; Admin Dose 2 MG; Start 03/07/16 at 20:07; Stop 03/07/16 at 20:08; Status DC Lorazepam 2 mg STK-MED ONCE .ROUTE Last administered on 03/08/16 11:36; Admin Dose 2 MG; Start 03/08/16 at 11:10; Stop 03/08/16 at 11:11; Status DC Mental Status Exam Appearance: Neat/well groomed Attitude: Guarded, Uncooperative Behavior: Other (irritable ) Affect: Labile Mood: Irritable Thought Process/Associations: Logical/Sequential, Goal Directed Speech Production: Normal Speech Rate: Normal Speech Articulation: Normal Thought Content: Suspicious, Perseveration Danger to Self/Suicidal Ideati: None Danger to Others: None Delusions: Paranoid (Endorses) Hallucinations: Auditory (Denies), Visual (Denies) Consciousness: Alert Orientation: Person, Place, Date, Situation Memory: Grossly Intact, Untestable Estimate Intellectual Function: Average Attention/Concentration & Cogn: Impaired Insight: Limited Judgement: Poor Mental Health Plan The patient is a 55-year-old white female with a history of severe bipolar mood disorder with psychosis. She has been admitted to multiple inpatient psychiatric hospitals throughout the [facility] over the past 15 years. When she takes her medications, low-dose Klonopin, Haldol and lithium, she tends to do quite well. She apparently has been off medications for an unclear amount of time and has developed a full-blown yahaira (although there is report that she was recently In [facility] until several days prior to our admission). When she is manic, she tends to have a hyperreligious, hypersexual focus with paranoia and extreme irritability. She tends to threaten other people. This has been especially difficult for the people in her life including her and close friends. She has been trying to manage with outpatient services. However, has continued to decompensate since discharging from multiple different units. I believe she would benefit from a long-acting neuroleptic, although at this time, she is not cooperative in any manner. Today she remains paranoid, pressured in thought and speech, and has been highly irritable. She is focusing on other people being the source of her problem. She is no longer posturing in a threatening manner Katrin making specific threats to harm staff this staff member included. She is appears to responded Well to the current medication regimen. [place] AXIS I 1. Bipolar mood disorder, manic with psychotic features. 2. Posttraumatic stress disorder. 3. History of polysubstance abuse. AXIS II Defer. AXIS III 1. Hypertension. 2. Insulin-dependent diabetes mellitus. 3. Hypothyroidism. 4. Obesity. AXIS IV severe with poor coping skills, recent family discord, poor coping skills AXIS V Current global assessment of functioning equal to 35. Treatments 1. The patient is encouraged to participate with group and milieu therapy. 2. The patient is encouraged to continue medications as prescribed. 3. The patient will meet with the treatment team on a daily basis to assess symptoms, side effects, and response to treatment. 4. Meds: Discontinue Aripiprazole to 10 mg daily Increased to 1mg ativan tid. Haldol 10 mg twice a day po or IM at bedtime Benadryl 50 mg twice a day by mouth or IM 5. Benadryl 50 mg every 6 hours for anxiety or EPS oral daily dose not to exceed 250 mg. 6. Simethicone for abdominal gas 7. Fasting lipids and hemoglobin A1c in a.m. 8. Consider long-acting injectable medication to assist with medication adherence in the community. 9. Anticipated length of stay 7 days. Liam Dobbins MD Mar 09, 2016 11:55
--- NOTE | 2016-03-10 11:29 | PCM.PNPSY ---
Subjective Date of Service Mar 10, 2016 Subjective I spent 20 minutes both reviewing treatment plan and providing supportive/ educational psychotherapy. I spent less than 50% of the time counseling the patient as Violet could only tolerate several minutes. I kept the session briefly in order to avoid her becoming hostile. She was unhappy about the medications. She states she feels sedated when she takes medication. Staff reports that she has been less hostile over the past 48 hours since starting the new medication regimen of Haldol 10 mg twice a day. She slept for only 4.5 hours . She continues to have multiple symptoms of yahaira including distractibility, severe irritability, and paranoia. (Patient was able to identify her medications nor what they were used to treat. He is in disagreement with me about her medications and what they should be. I gave her the the relative risk benefits and side effects of using a combination of a mood stabilizer like lithium or Depakote in combination with an atypical psychotic such as Risperdal decanoate would provide the needed coverage for yahaira and psychosis which would allow her to maintain in an outpatient setting. She believes that she only needs Abilify. She had been on Abilify for significant amount of time at [facility]. 2 days after her discharge from [facility] she was in our ER manic and psychotic.) Current Medications Current Medications Diphenhydramine HCl 50 mg BID PO Last administered on 03/10/16 08:17; Admin Dose 50 MG; Start 03/08/16 at 20:30 Haloperidol 10 mg BID PO Last administered on 03/10/16 10:04; Admin Dose 10 MG ; Start 03/08/16 at 20:30 Lorazepam 1-2MG Q4H PRN PO Last administered on 03/09/16 20:59; Admin Dose 2 MG; Start 03/08/16 at 12:00 Mental Status Exam Appearance: Neat/well groomed Attitude: Guarded, Uncooperative Behavior: Other (irritable ) Affect: Labile Mood: Irritable Thought Process/Associations: Logical/Sequential, Goal Directed Speech Production: Normal Speech Rate: Normal Speech Articulation: Normal Thought Content: Suspicious, Perseveration Danger to Self/Suicidal Ideati: None Danger to Others: None Delusions: Paranoid (Endorses) Hallucinations: Auditory (Denies), Visual (Denies) Consciousness: Alert Orientation: Person, Place, Date, Situation Memory: Grossly Intact, Untestable Estimate Intellectual Function: Average Attention/Concentration & Cogn: Impaired Insight: Limited Judgement: Poor Mental Health Plan The patient is a 55-year-old white female with a history of severe bipolar mood disorder with psychosis. She has been admitted to multiple inpatient psychiatric hospitals throughout the [facility] over the past 15 years. When she takes her medications, low-dose Klonopin, Haldol and lithium, she tends to do quite well. She apparently has been off medications for an unclear amount of time and has developed a full-blown yahaira (although there is report that she was recently In [facility] until several days prior to our admission). When she is manic, she tends to have a hyperreligious, hypersexual focus with paranoia and extreme irritability. She tends to threaten other people. This has been especially difficult for the people in her life including her and close friends. She has been trying to manage with outpatient services. However, has continued to decompensate since discharging from multiple different units. I believe she would benefit from a long-acting neuroleptic, although at this time, she is not cooperative in any manner. Today she is less paranoid/pressured in thought and speech, and has been less irritable. (Patient was able to identify her medications nor what they were used to treat. He is in disagreement with me about her medications and what they should be. I gave her the the relative risk benefits and side effects of using a combination of a mood stabilizer like lithium or Depakote in combination with an atypical psychotic such as Risperdal decanoate would provide the needed coverage for yahaira and psychosis which would allow her to maintain in an outpatient setting. She believes that she only needs Abilify. She had been on Abilify for significant amount of time at [facility]. 2 days after her discharge from [facility] she was in our ER manic and psychotic.) [place] AXIS I 1. Bipolar mood disorder, manic with psychotic features. 2. Posttraumatic stress disorder. 3. History of polysubstance abuse. AXIS II Defer. AXIS III 1. Hypertension. 2. Insulin-dependent diabetes mellitus. 3. Hypothyroidism. 4. Obesity. AXIS IV severe with poor coping skills, recent family discord, poor coping skills AXIS V Current global assessment of functioning equal to 35. Treatments 1. The patient is encouraged to participate with group and milieu therapy. 2. The patient is encouraged to continue medications as prescribed. 3. The patient will meet with the treatment team on a daily basis to assess symptoms, side effects, and response to treatment. 4. Meds: Discontinue Aripiprazole to 10 mg daily Increased to 1mg ativan tid. Haldol 10 mg twice a day po or IM at bedtime Benadryl 50 mg twice a day by mouth or IM 5. Benadryl 50 mg every 6 hours for anxiety or EPS oral daily dose not to exceed 250 mg. 6. Simethicone for abdominal gas 7. Fasting lipids and hemoglobin A1c in a.m. 8. Consider long-acting injectable medication to assist with medication adherence in the community. 9. Anticipated length of stay 7-14 days if patient is willing to take a mood stabilizer, 90 days at [facility] if she continues in her current state of mind without proper treatment for her bipolar disorder.. Liam Dobbins MD Mar 10, 2016 11:29
--- NOTE | 2016-03-10 11:48 | NUR ---
Nursing Day Shift- S- "Isaias Cordova! How are you today!" O- Pt. was awake and in the DR at the start of the day shift. She was fully dressed, with make-up on. Pt. was friendly with a loud tone. She declined her AM Haldol, but said she would take it after court, and did so at 1030. Pt. attended court and was appropriate with a loud tone. Multiple complaints to staff about the food on the unit, etc. A- Pt. has maintained behavioral control without threatening behavior thus far today. She agreed to a bench trial on 03-14-16 for a 30 Day MRO. Very limited insight. P- Cont. bHTP. IM medications if PO Haldol is refused per 2nd opinion order.
--- NOTE | 2016-03-10 18:04 | NUR ---
Developer Designer/Counselor: S: "I miss my children and grandchildren really bad." O: Patient only slept 4.5 hours last night as per staff. She denies S/I and H/I. She also denies auditory and visual hallucinations. Depression is 0/10 and anxiety is "a little bit"/10. When asked her mood, patient stated, "Okay." A: Patient is cooperative, pleasant, fair insight, fair judgment. P: Follow care plan coordinate out-patient providers.
--- NOTE | 2016-03-10 18:13 | NUR ---
[facility] Day Shift Pt maintained behavioral control throughout the shift. Pt affect remains labile (pleasant in the AM, irritable in the evening). Pt spends most of the shift interacting with peers and engaging in unit activities. Pt is appropriate with staff and peers when active on the unit. Pt attended community meeting and all group activities throughout the shift. Pt attended all meals and ate approx 70% of breakfast and lunch, but declined to eat dinner.
[2016-03-10] MEDS: Haloperidol 5 mg/mL Inj IM PRN (20:18)
--- NOTE | 2016-03-10 22:06 | NUR ---
NURSING NOTE [id number] Mood: "I'm good, how are you-- I like your shoes!" *loud voice* Affect: beginning of shift: superficially pleasant and polite and cooperative, middle and latter part of shift: irritable, antagonizing, uncooperative Behavior: pt. was med compliant w/her dinner meds and allowed for FSBS (93) w/no issue. Circa 1700 she was noticeably more irritable and mouthed to one RN "fuck you!" through the glass of the NS. The pt. issued many other rude remarks to staff thereafter throughout the shift. She kept to her room for much of the shift but often came out to chief administrative officer the doorway and stare for long periods of time at the nurse's station. She made comments at other pts walking by, often of zoroastrianism nature. Pt. made another pt., EMELINA, cry by insinuating she was going to hell. Pt. refused her scheduled HS medications and was counseled that she would be given an injection if she refused her PO Haldol. Show of support called, Zyprexa 10 mg IM and Benadryl 50 IM administered.
--- NOTE | 2016-03-11 05:41 | NUR ---
Nursing: operation shift supervisor Patient remains awake entire operation shift supervisor. Patient sitting in dining room for long intervals, loudly announcing the time minute by minute. Patient spending intervals walking around in room. Patient had one episode of crying loudly. Staff attempted to assess, reassure,and offer comfort measures. Patient was asked how staff could help. Patient responded "Leave me alone" then stopped crying. Patient continues sitting in dining room with glares at staff.
--- NOTE | 2016-03-11 06:02 | NUR ---
Pt out on unit much of shift. Pt argumentative and verbally aggressive with staff and other Pts. Did not sleep any. Yelling and trying to instigate conflict throughout shift. Pt observed every 15 minutes as ordered.
[2016-03-11] MEDS: diphenhydrAMINE 50 mg Capsule PO SCH ×2 (08:05→08:30)
[2016-03-11] MEDS: Pantoprazole 40 mg ER24 Tablet PO SCH (08:06)
[2016-03-11] MEDS ORDERED: chlorproMAZINE 25 mg/mL Inj ONE (11:21)
[2016-03-11] MEDS ORDERED: risperiDONE 2 mg Tablet PO SCH (11:36)
[2016-03-11] MEDS ORDERED: chlorproMAZINE 25 mg/mL Inj IM ONE (13:15)
--- NOTE | 2016-03-11 13:47 | NUR ---
Nursing Day Shift- S- "I'm not taking any medications. Sure it is!! (Sarcastic response to Pt. being informed that her Haldol was ordered by the court to be given IM if PO refused.) O- Pt. was awake at the start of the day shift. She had remained awake all night per report. She refused her AM medications and stated "Get the F...out of my room." She then made a lunging motion at staff, but retreated. She appeared tense and irritable. She had not applied fresh make-up. Pt. came out to the DR at breakfast and refused breakfast. She had an intense angry stare for all staff. She returned to her room and could be seen pacing around, then crying. Pt's medications were offered again, and again refused. The MD was informed and ordered Depakote, Risperdal and Klonopin PO. If the Pt. refused that, she was to be offered Thorazine PO or IM. The PO medications were refused at 1130, and again Pt. gestured as if to harm staff, but stopped. Thorazine IM was not available on the unit, pharmacy was contacted. MD was informed and told staff to offer the PO again with a show of force, when staff level allowed. A- Increased paranoia, agitated and aggressive behavior. Decrease in trust and rational thinking. No food thus far today. P- Show of force for PO or IM medications today between 1430 and 1500. Cont. BHTP. Addendum: 03/11/16 at 1552 by VENANCIO WARREN RN Pt. declined PO medications with a show of force. IM medications where given. Pt. resisted and required being held down. She remained on the floor afterwards and declined to move. All staff exited the room, and the Pt. has remained on the floor.
--- NOTE | 2016-03-11 15:55 | PCM.PNPSY ---
Subjective Date of Service Mar 11, 2016 Subjective I spent 20 minutes both reviewing treatment plan . Violet could only tolerate several minutes. I kept the session briefly in order to avoid her becoming hostile. She was unhappy about the medications. She states she feels sedated when she takes medication. Staff reports that she has been hostile over the past 24 hours. She slept for only 1-2 hours . She continues to have multiple symptoms of yahaira including distractibility, severe irritability, and paranoia. Patient was not able to identify her medications nor what they were used to treat. She is in disagreement with me about her medications and what they should be. I gave her the the relative risk benefits and side effects of using a combination of a mood stabilizer (Depakote) in combination with an atypical psychotic (Risperdal decanoate) to provide the needed coverage for yahaira and psychosis and which would allow her to maintain in an outpatient setting. She believes that she only needs Abilify. She had been on Abilify for significant amount of time at [facility]. 2 days after her discharge from [facility] she was in our ER manic and psychotic. Current Medications Current Medications Chlorpromazine HCl 100 mg ONCE ONCE IM Last administered on 03/11/16t 15:36; Admin Dose 100 MG; Start 03/11/16 at 13:15; Stop 03/11/16 at 13:16; Status DC Mental Status Exam Appearance: Neat/well groomed Attitude: Guarded, Uncooperative Behavior: Other (irritable ) Affect: Labile Mood: Irritable Thought Process/Associations: Logical/Sequential, Goal Directed Speech Production: Normal Speech Rate: Normal Speech Articulation: Normal Thought Content: Suspicious, Perseveration Danger to Self/Suicidal Ideati: None Danger to Others: None Delusions: Paranoid (Endorses) Hallucinations: Auditory (Denies), Visual (Denies) Consciousness: Alert Orientation: Person, Place, Date, Situation Memory: Grossly Intact, Untestable Estimate Intellectual Function: Average Attention/Concentration & Cogn: Impaired Insight: Limited Judgement: Poor Mental Health Plan The patient is a 55-year-old white female with a history of severe bipolar mood disorder with psychosis. She has been admitted to multiple inpatient psychiatric hospitals throughout the [facility] over the past 15 years. When she takes her medications, low-dose Klonopin, Haldol and lithium, she tends to do quite well. She apparently has been off medications for an unclear amount of time and has developed a full-blown yahaira (although there is report that she was recently In [facility] until several days prior to our admission). When she is manic, she tends to have a hyperreligious, hypersexual focus with paranoia and extreme irritability. She tends to threaten other people. This has been especially difficult for the people in her life including her and close friends. She has been trying to manage with outpatient services. However, has continued to decompensate since discharging from multiple different units. I believe she would benefit from a long-acting neuroleptic, although at this time, she is not cooperative in any manner. Today she is pressured in thought and speech, and has been hostile, frequently posturing in an aggressive manner as if to about attack another staff or patient. She was not able to identify her medications nor what they were used to treat. She is in disagreement with me about her medications and what they should be. I gave her the the relative risk benefits and side effects of using a combination of a mood stabilizer (Depakote) in combination with an atypical psychotic (Risperdal decanoate) to provide the needed coverage for yahaira and psychosis and which would allow her to maintain in an outpatient setting. She believes that she only needs Abilify. She had been on Abilify for significant amount of time at [facility]. 2 days after her discharge from [facility] she was in our ER manic and psychotic. [place] AXIS I 1. Bipolar mood disorder, manic with psychotic features. 2. Posttraumatic stress disorder. 3. History of polysubstance abuse. AXIS II Defer. AXIS III 1. Hypertension. 2. Insulin-dependent diabetes mellitus. 3. Hypothyroidism. 4. Obesity. AXIS IV severe with poor coping skills, recent family discord, poor coping skills AXIS V Current global assessment of functioning equal to 35. Treatments 1. The patient is encouraged to participate with group and milieu therapy. 2. The patient is encouraged to continue medications as prescribed. 3. The patient will meet with the treatment team on a daily basis to assess symptoms, side effects, and response to treatment. 4. Meds to be offered Depakote 500 mg twice a day: patient refusing Risperdal 3 mg twice a day: Patient refusing Klonopin 1 mg twice a day 2 mg at bedtime If refuses above will give: Thorazine 100 mg by mouth twice a day, with medication override of IM if patient refuses Discontinue Haldol 10 mg twice a day DC scheduled Benadryl 5. Benadryl 50 mg every 6 hours for anxiety or EPS oral daily dose not to exceed 250 mg. 6. Simethicone for abdominal gas 7. Fasting lipids and hemoglobin A1c in a.m. 8. Consider long-acting injectable medication to assist with medication adherence in the community. 9. Anticipated length of stay 7-14 days if patient is willing to take a mood stabilizer, 90 days at [facility] if she continues in her current state of mind without proper treatment for her bipolar disorder.. Liam Dobbins MD Mar 11, 2016 15:55
[2016-03-11] MEDS ORDERED: chlorproMAZINE 25 mg/mL Inj IM PRN (16:40)
--- NOTE | 2016-03-11 19:21 | NUR ---
OBSERVATIONS 0900 TO 2130 Pt was isolative and spent most of shift in room, on floor. Pt was uncooperative with staff and often unresponsive when staff attempted to engage. Pt refused meals and meds. After forced IM meds, pt laid on dining room floor for 2 hours before returning to room. Q15 safety checks were maintained as directed.
[2016-03-11] MEDS: risperiDONE 2 mg Tablet PO SCH (20:30)
--- NOTE | 2016-03-11 22:10 | NUR ---
NURSING NOTE [id number] At start of shift the pt. was refusing her scheduled medications (she had been refusing them all day). Pt. became verbally aggressive re: medications and hostile to staff on unit. Silent code called at 15:15. With security staff and our staff present, pt. was again given the option to take her PO meds or else would be given a Thorazine. She was not agreeable to this and so was assisted to the floor for safety and given Thorazine injections (100 mg split between 2 syringes, one in each buttock). Pt. remained lying on the floor thereafter for nearly 2 hrs, refusing to get up despite encouragement. She got up and walked to her room at 17:00 and laid in bed. She laid there awake for several hrs, spoke to her daughter on the phone at one point. As of 20:30 she has appeared to be asleep, in bed. Will continue to monitor.
--- NOTE | 2016-03-12 06:29 | NUR ---
Nursing note: retail shift supervisor Patient observed to be sleeping soundly on safety checks during the night.
[2016-03-12] MEDS: Pantoprazole 40 mg ER24 Tablet PO SCH (08:17)
[2016-03-12] MEDS: risperiDONE 2 mg Tablet PO SCH ×2 (08:30→18:33)
[2016-03-12 10:55] VITALS: BP 123/70; PULSE 111; RESP 18
--- NOTE | 2016-03-12 12:54 | PCM.PNPSY ---
Subjective Date of Service Mar 12, 2016 Subjective I spent 20 minutes both reviewing treatment plan reviewing the case with staff and observing Violet in her interactions. Violet could only tolerate several minutes. I kept the session briefly in order to avoid her becoming hostile. She remains quite unhappy about the medications. She states she feels sedated when she takes medication. Staff reports that she has been hostile over the past 72 hours. She slept well, 11 hours . She continues to have multiple symptoms of yahaira including distractibility, severe irritability, hostility and paranoia. She was not able to identify her medications nor what they were used to treat. She is in disagreement with me about her medications and what they should be. I gave her the the relative risk benefits and side effects of using a combination of a mood stabilizer (Depakote) in combination with an atypical psychotic (Risperdal) to provide the needed coverage for yahaira and psychosis and which would allow her to maintain in an outpatient setting. She believes that she only needs Abilify. She had been on Abilify for significant amount of time at [facility]. 2 days after her discharge from [facility] she was in our ER manic and psychotic. Current Medications Current Medications Chlorpromazine HCl 100 mg ONCE ONCE IM Last administered on 03/11/16 15:36; Admin Dose 100 MG; Start 03/11/16 at 13:15; Stop 03/11/16 at 13:16; Status DC Clonazepam 1 mg 08,14 PO Last administered on 03/12/16 09:32; Admin Dose 1 MG; Start 03/11/16 at 14:00 Mental Status Exam Vital Signs Vital Signs Date Time Temp Pulse Resp B/P Pulse Ox O2 Delivery O2 Flow Rate FiO2 03/12/16 10:55 36.2 111 18 123/70 Appearance: Neat/well groomed Attitude: Guarded, Uncooperative, Hostile/Threatening Behavior: Other (irritable ) Affect: Labile Mood: Irritable Thought Process/Associations: Logical/Sequential, Goal Directed Speech Production: Normal Speech Rate: Normal Speech Articulation: Normal Thought Content: Suspicious, Perseveration Danger to Self/Suicidal Ideati: None Danger to Others: None Delusions: Paranoid (Endorses) Consciousness: Alert Orientation: Person, Place, Date, Situation Memory: Grossly Intact, Untestable Estimate Intellectual Function: Average Attention/Concentration & Cogn: Impaired Insight: Limited Judgement: Poor Mental Health Plan The patient is a 55-year-old white female with a history of severe bipolar mood disorder with psychosis. She has been [facility] multiple [facility]. When she takes her medications, low-dose Klonopin, Haldol and lithium, she tends to do quite well. She apparently has been off medications for an unclear amount of time and has developed a full-blown yahaira (although there is report that she was recently In [facility] until several days prior to our admission). When she is manic, she tends to have a hyperreligious, hypersexual focus with paranoia and extreme irritability. She tends to threaten other people. This has been especially difficult for the people in her life including her and close friends. She has been trying to manage with outpatient services. However, has continued to decompensate since discharging from multiple different units. I believe she would benefit from a long-acting neuroleptic, although at this time, she is not cooperative in any manner. Today she is pressured in thought and speech, and has been hostile, frequently posturing in an aggressive manner as if to about attack another staff or patient. She was not able to identify her medications nor what they were used to treat. She is in disagreement with me about her medications and what they should be. I gave her the the relative risk benefits and side effects of using a combination of a mood stabilizer (Depakote) in combination with an atypical psychotic (Risperdal decanoate) to provide the needed coverage for yahaira and psychosis and which would allow her to maintain in an outpatient setting. She believes that she only needs Abilify. She had been on Abilify for significant amount of time at [facility]. 2 days after her discharge from [facility] she was in our ER manic and psychotic. [place] AXIS I 1. Bipolar mood disorder, manic with psychotic features. 2. Posttraumatic stress disorder. 3. History of polysubstance abuse. AXIS II Defer. AXIS III 1. Hypertension. 2. Insulin-dependent diabetes mellitus. 3. Hypothyroidism. 4. Obesity. AXIS IV severe with poor coping skills, recent family discord, poor coping skills AXIS V Current global assessment of functioning equal to 35. Treatments 1. The patient is encouraged to participate with group and milieu therapy. 2. The patient is encouraged to continue medications as prescribed. 3. The patient will meet with the treatment team on a daily basis to assess symptoms, side effects, and response to treatment. 4. Meds to be offered Depakote 500 mg twice a day: patient refusing Risperdal 3 mg twice a day: Patient refusing Klonopin 1 mg twice a day 2 mg at bedtime If refuses above will give: Thorazine 100 mg by mouth twice a day, with medication override of IM if patient refuses Discontinue Haldol 10 mg twice a day DC scheduled Benadryl 5. Benadryl 50 mg every 6 hours for anxiety or EPS oral daily dose not to exceed 250 mg. 6. Simethicone for abdominal gas 7. Fasting lipids and hemoglobin A1c in a.m. 8. Consider long-acting injectable medication to assist with medication adherence in the community. 9. Anticipated length of stay 7-14 days if patient is willing to take a mood stabilizer, 90 days at [facility] if she continues in her current state of mind without proper treatment for her bipolar disorder.. Liam Dobbins MD Mar 12, 2016 12:54
--- NOTE | 2016-03-12 14:05 | NUR ---
Accounting Associate./ c.m. S.:"I'm fine. I like your top. I would like to have it but it would be too small for me." O.: met with pt. in the Dining room for a brief conversation. She had a long sleep last night. She was in and out of her room during the day. She went to an afternoon group but couldn't sty there long. She denied SI/HI, denied AH/VH. She couldn't rate depression or anxiety. She couldn't focus on a conversation and she walked away even without finishing her sentence. A.: pt. is cooperative, pleasant at this time, scattered in her thoughts, social with peers, has unpredictable behavior and easily get agitated and out of control. P.: monitor behavior, provide safety in the unit, monitor meds intake; follow care plan.
--- NOTE | 2016-03-12 14:34 | NUR ---
Nursing Day Shift- S- "I don't take that. Give me a shot. You enjoy that Art, don't you. Yes you do!" O- Pt. was asleep from the start of the day shift until 0830. At that time she walked with a steady gait to the DR and eat 100% breakfast. Pt. appeared guarded but was more verbal and appeared less tense then she had yesterday. She allowed her BS to be sampled, then asked about her meds. "You nurses have been messing up my medications. You haven't been giving them to me." Pt. then declined to take Depakote or Risperdal. She did agree to Klonopin. Pt. was angry, loud and threatening/ intimidating toward staff. Her agitation seemed to decrease as the Klonopin took effect. Pt. was offered po Thorazine, and declined saying "give me the shot." She then walked out of her room to a crowded patient area. At 1350 Pt. was escorted to her room with a show of force. She allowed the shot to be administered without being held down, but she did taunt and glare at staff. A- Vastly improved sleep with Thorazine. Resistance to medications. Very limited insight. P- Cont. BHTP.
--- NOTE | 2016-03-12 17:35 | NUR ---
[facility] Day Shift Pt maintained behavioral control throughout the shift, albeit with some difficulty in the AM. Pt affect remains labile (aggressive/hostile in the AM, pleasant and social in the PM). Pt spends most of the shift interacting with peers and engaging in unit activities. Pt is mostly appropriate with staff and peers when active on the unit, though pt is defiant and standoffish with staff in the AM. Pt expresses some paranoia in the AM regarding staff, claiming that her shower items were "not clean" and that staff had engaged in illicit activities in the unit washer/dryer room. Pt attended all group activities throughout the shift. Pt attended all meals and ate approx 80% of all meals.
[2016-03-12] MEDS: diphenhydrAMINE 50 mg Capsule PO PRN (18:22)
--- NOTE | 2016-03-13 04:26 | NUR ---
Observations from [id number] Pt was pleasant and engaging with peers all evening. Pt didn't cause any problems this evening and was laughing and smiling with peers and staff. Pt appeared asleep at 2300 and has remained asleep throughout the night. Pt has been monitored every 15 minutes as directed.
--- NOTE | 2016-03-13 05:58 | NUR ---
Nursing NOC Pt walking up and down hallways, mostly keeping to herself, not agitated or hostile to anybody. pt woke up during the night and requested some ice cream but ended up eating parts of the Styrofoam cup. Q [address]
--- NOTE | 2016-03-13 08:18 | NUR ---
Medication: Lipitor for 03/12/16 2100 signed off as not administered. Scrap Baller does not know reason as to why it was not administered last evening, on
[2016-03-13] MEDS: risperiDONE 2 mg Tablet PO SCH (08:30)
[2016-03-13] MEDS: Pantoprazole 40 mg ER24 Tablet PO SCH (09:07)
[2016-03-13] MEDS: diphenhydrAMINE 50 mg Capsule PO PRN ×2 (09:08→18:41)
[2016-03-13] MEDS: Magnesium Hydroxide 10 mL Oral Concentration PO PRN ×2 (09:15→18:41)
[2016-03-13 10:15] VITALS: BP 112/77; PULSE 89; RESP 16
--- NOTE | 2016-03-13 13:48 | NUR ---
Nursing Day Shift- S- "I'm not eating that. Can you order me an Swedish muffin like everyone else got?" O- Pt. had slept 7 plus hours per night report. She had taken her scheduled medications PO at HS. This morning Pt. took everything ordered except for Depakote and Risperdal. She initially signed a waiver to take meds prior to court tomorrow for a possible 90 day MRO, but then changed her mint and signed a 2nd waiver declining. She has maintained behavioral control and appeared less agitated, paranoid or threatening. Decreased vocal tone. A- Resistant to medications. Presentation improved from prior 2 days. Eating well. P- Court tomorrow. Cont. BHTP.
[2016-03-13] MEDS: ARIPiprazole 10 mg Tablet PO SCH (14:19)
--- NOTE | 2016-03-13 16:00 | NUR ---
Observations 0700 to 1900 Pt has mostly maintained behavioral control throughout the shift. Pt has been calm and friendly throughout day except for one brief moment in afternoon when pt thought someone had stolen her jacket. Pt spent most of the day out on the unit and attended all community activities. Pt enjoyed throwing the football on the patio and coloring in the D.R. Pt seeks and enjoys interaction with peers and staff. Pt has eaten 75-100% of meals and has been observed every 15 minutes as ordered.
--- NOTE | 2016-03-13 18:51 | NUR ---
Pocket Grinder Operator/Counselor: S: "I feel better today." O: Patient slept 7 hours last night as per staff. She denies S/I and H/I. She also denies auditory and visual hallucinations. Depression is 0/10 and anxiety is 0/10. When asked her mood, patient stated, "I feel good today." A: Patient is cooperative, pleasant, fair insight, fair judgment. P: Follow care plan coordinate out-patient providers.
--- NOTE | 2016-03-13 20:27 | NUR ---
NURSING NOTE [id number] Mood= "Good because you're here magno dasilva!" *smiles* Affect= mostly pleasant this evening with both staff and peers, did get upset and had a raised voice on the phone at one point but recovered soon thereafter Behavior= visible this shift in the dining room coloring w/peers, pacing the halls talking on the phone, approached this continuity writer to chat and complimented this continuity writer in a staff-splitting manner, e.g. named staff she enjoys and staff members she doesn't like and did this several times throughout the shift. Thought processes= continues to be paranoid about medications and weight gain, believes she gained 11 lbs in 24 hours here and that this is due to her medications, and refused to take her scheduled Depakote and other HS medications tonight prior to court (waiver has been signed). PRNs Tylenol @ 16:26 for 08/21 back pain Milk of Mag @ 18:40 Benadryl @ 18:40 Dinner FSBS was 81. She was agreeable to take her scheduled oral antihyperglycemic agents. Addendum: 03/13/16 at 2246 by TERESA STUART RN At 22:35 pt. changed her mind and agreed to take her HS Klonopin and Depakote ER, administered at 22:45
--- NOTE | 2016-03-13 21:23 | PCM.PNPSY ---
Subjective Date of Service Mar 13, 2016 Subjective The patient received Depakote and Thorazine and risperidone last night and reports having slept well. She is less irritable today. She reports a number of side effects from medications including constipation and urinary retention. We discussed a number of options and she was agreeable to taking long-acting Depakote at bedtime and slowly titrating aripiprazole until stable. She has been refusing a number of her psychiatric medications and should tolerate cross taper relatively easily. Sleep: 7 hours Appetite: Good Suicidal and homicidal ideation: Denies Auditory hallucinations/Visual hallucinations: Denies Other Psychotic Symptoms: N/A Anxiety: Denies Depression: Denies Current Medications Current Medications Aripiprazole 10 mg DAILY PO Last administered on 03/13/16t 14:19; Admin Dose 10 MG; Start 03/13/16 at 13:05 Mental Status Exam Appearance: Neat/well groomed Attitude: Cooperative, Guarded Behavior: Other (irritable ) Affect: Labile Mood: Irritable Thought Process/Associations: Logical/Sequential, Goal Directed Speech Production: Normal Speech Rate: Normal Speech Articulation: Normal Thought Content: Suspicious, Perseveration Danger to Self/Suicidal Ideati: None Danger to Others: None Delusions: Paranoid (Endorses) Hallucinations: Auditory (Denies), Visual (Denies) Consciousness: Alert Orientation: Person, Place, Date, Situation Memory: Grossly Intact, Untestable Estimate Intellectual Function: Average Attention/Concentration & Cogn: Impaired Insight: Limited Judgement: Poor Mental Health Plan The patient is a 55-year-old white female with a history of severe bipolar mood disorder with psychosis. She has been admitted to multiple inpatient psychiatric hospitals throughout the state over the past 15 years. When she takes her medications, low-dose Klonopin, Haldol and lithium, she tends to do quite well. The patient is also responded well to aripiprazole in the past. She apparently has been off medications for an unclear amount of time and has developed a manic episode. Historically, when manic, she tends to have a hyperreligious, hypersexual focus with paranoia and extreme irritability. She tends to threaten other people. Her current admission appears to be consistent with this pattern. Despite being engaged in outpatient services, she has difficulty with medication adherence and may benefit from a long-acting neuroleptic but is currently decompensated and unable to have this discussion. The patient was taken off aripiprazole and switched to risperidone due to the concern about possible activation. Since that time she is becoming increasingly irritable and agitated and required seclusion and restraint and shows of force for compelled medication. The patient was again agreeable to cross tapering to aripiprazole with the addition of Depakote and a slower titration. She remains somewhat guarded and hostile. [place] AXIS I 1. Bipolar mood disorder, manic with psychotic features. 2. Posttraumatic stress disorder. 3. History of polysubstance abuse. AXIS II Defer. AXIS III 1. Hypertension. 2. Insulin-dependent diabetes mellitus. 3. Hypothyroidism. 4. Obesity. AXIS IV severe with poor coping skills, recent family discord, poor coping skills AXIS V Current global assessment of functioning equal to 35. Medications Depakote 500 mg twice a day: patient refusing 4/5 Risperdal 3 mg twice a day: Patient refusing 3/4 Klonopin 1 mg twice a day 2 mg at bedtime Treatments 1. The patient is encouraged to participate with group and milieu therapy. 2. The patient is encouraged to continue medications as prescribed. 3. The patient will meet with the treatment team on a daily basis to assess symptoms, side effects, and response to treatment. 4. Risperdal and Depakote will be discontinued. 5. Depakote ER 1000 mg at bedtime. 6. Aripiprazole 10 mg by mouth daily first dose now. 7. Thorazine 100 mg for agitation with override. 8. Consider long-acting injectable medication to assist with medication adherence in the community. 9. Anticipated length of stay 7-14 days if patient is willing to take a mood stabilizer, 90 days at [facility] if she continues in her current state of mind without proper treatment for her bipolar disorder. Jez Stephens MD Mar 13, 2016 21:23
[2016-03-13] MEDS ORDERED: Divalproex (QD) 500 mg ER24 Tablet PO ONE (22:38)
[2016-03-13] MEDS: Divalproex (QD) 500 mg ER24 Tablet PO SCH (22:42)
--- NOTE | 2016-03-14 01:29 | NUR ---
Observations 1900 to 0700 Pt spent her night coloring and socializing. Pt did take a shower again last night. Pt was polite and cooperative. Pt hung out in the DR talking to peers for awhile. Pt has not gone to sleep yet and was observed every 15 minutes through the night as directed.
--- NOTE | 2016-03-14 05:47 | NUR ---
Nursing Noc Pt spent the evening out on the unit appropriately interacting with both peers & staff. She requested & received her HS medication later in the the evening. Poor sleep of 3.25 hours.
[2016-03-14] MEDS: Pantoprazole 40 mg ER24 Tablet PO SCH (08:59)
[2016-03-14 09:00] VITALS: BP 136/84; PULSE 76; RESP 17
[2016-03-14] MEDS: ARIPiprazole 10 mg Tablet PO SCH (09:00)
--- NOTE | 2016-03-14 11:49 | NUR ---
Nursing Day Shift- S- "I'm going to join [facility] when I get out." O- Pt. had slept 3.25 plus hours per shift report. She was awake and dressed for breakfast. Pt. was polite with an appropriate vocal tone and decreased volume since yesterday. Pt. took all of her scheduled AM medications without resistance. She eat well at breakfast and lunch. Pt. was polite and tearful in court. A- Improvement in sleep, mood, and behavior. P- Pt. was placed on a 90 day LRO with up to 10 days inpatient. Cont. BHTP.
[2016-03-14] MEDS: diphenhydrAMINE 50 mg Capsule PO PRN ×2 (14:41→22:44)
--- NOTE | 2016-03-14 17:08 | PCM.PNPSY ---
Subjective Date of Service Mar 14, 2016 Subjective The patient agreed to a less restrictive order +10 inpatient days. The patient took the long-acting Depakote last night and reported some itching but otherwise no other side effects. She reported no problems with other patients. The patient reported that she would like to have outpatient treatment in [place]. She plans to temporarily move in with her daughter on discharge and then after 2 weeks move into her own home. She reports still having some constipation. No acute psychotic symptoms and mood overall appears improved. The patient requests stopping the midday clonazepam and only using this as needed due to sedation. Sleep: Patient reports slept all night, staff report 3.25 hours Appetite: Reports having "the munchies" from Depakote. Suicidal and homicidal ideation: Denies Auditory hallucinations/Visual hallucinations: Denies Other Psychotic Symptoms: N/A Anxiety: Denies Depression: Denies Current Medications Current Medications Aripiprazole 10 mg DAILY PO Last administered on 03/14/16 09:00; Admin Dose 10 MG; Start 03/13/16 at 13:05 Divalproex Sodium 1,000 mg Q24 PO Last administered on 03/13/16 22:42; Admin Dose 1,000 MG; Start 03/14/16 at 21:30 Mental Status Exam Appearance: Neat/well groomed Attitude: Cooperative, Guarded Behavior: No unusual behavior Affect: Restricted Mood: Irritable (mild) Thought Process/Associations: Logical/Sequential, Goal Directed Speech Production: Normal Speech Rate: Normal Speech Articulation: Normal Thought Content: Suspicious Danger to Self/Suicidal Ideati: None Danger to Others: None Delusions: Paranoid (Endorses, mild) Hallucinations: Auditory (Denies), Visual (Denies) Consciousness: Alert, Hyper-vigilant Orientation: Person, Place, Date, Situation Memory: Grossly Intact Estimate Intellectual Function: Average Attention/Concentration & Cogn: Impaired (but improving) Insight: Limited Judgement: Limited Mental Health Plan The patient is a 55-year-old white female with a history of severe bipolar mood disorder with psychosis. She has been admitted to multiple inpatient psychiatric hospitals throughout the state over the past 15 years. When she takes her medications, low-dose Klonopin, Haldol and lithium, she tends to do quite well. The patient is also responded well to aripiprazole in the past. She apparently has been off medications for an unclear amount of time and has developed a manic episode. Historically, when manic, she tends to have a hyperreligious, hypersexual focus with paranoia and extreme irritability. She tends to threaten other people. Her current admission appears to be consistent with this pattern. Despite being engaged in outpatient services, she has difficulty with medication adherence and may benefit from a long-acting neuroleptic but is currently decompensated and unable to have this discussion. The patient was taken off aripiprazole and switched to risperidone due to the concern about possible activation. Since that time she is becoming increasingly irritable and agitated and required seclusion and restraint and shows of force for compelled medication. The patient was again agreeable to cross tapering to aripiprazole with the addition of Depakote and a slower titration. The patient appears calmer today and requests decreasing clonazepam. She did not sleep as well last night but disagrees with the total amount. She is agreeable to slow titration of aripiprazole. [place] AXIS I 1. Bipolar mood disorder, manic with psychotic features. 2. Posttraumatic stress disorder. 3. History of polysubstance abuse. AXIS II Defer. AXIS III 1. Hypertension. 2. Insulin-dependent diabetes mellitus. 3. Hypothyroidism. 4. Obesity. AXIS IV severe with poor coping skills, recent family discord, poor coping skills AXIS V Current global assessment of functioning equal to 35. Medications Depakote ER 1000 mg at night Aripiprazole 5 mg daily Klonopin 1 mg twice a day 2 mg at bedtime Treatments 1. The patient is encouraged to participate with group and milieu therapy. 2. The patient is encouraged to continue medications as prescribed. 3. The patient will meet with the treatment team on a daily basis to assess symptoms, side effects, and response to treatment. 4. Increase aripiprazole to 15 mg daily 5. Continue Depakote ER 1000 mg at bedtime. 6. Thorazine 100 mg for agitation with override. 7. Consider long-acting injectable medication to assist with medication adherence in the community. 8. Anticipated length of stay 7-14 days with discharge on less restrictive order. Jez Stephens MD Mar 14, 2016 17:08
--- NOTE | 2016-03-14 18:45 | NUR ---
Observations [id number] Pt was awake in the dining room upon start of shift. Pt stated that she felt drowsy due to medication and got emotional regarding how tired she feels. Pt had court today which she said went well. She participated in groups working on crafts and going outside and was social with peers. Pt ate an average of 75% of meals. She was observed every 15 minutes of shift as directed.
--- NOTE | 2016-03-14 21:48 | NUR ---
Nursing Note Maryellen- Pt affect cheerful and bright, behavior controlled and cooperative. Pt spent the shift socializing with peers and staff. Pt spent time in the activity playing [employer] and was excited about her bowling score. Pt compliant with meds and no complaints or issues noted on shift. Q15 min safety checks per protocol and pt currently in shower. WCTM sleep, safety, behavior
[2016-03-14] MEDS: Divalproex (QD) 500 mg ER24 Tablet PO SCH (22:41)
--- NOTE | 2016-03-15 01:31 | NUR ---
Observations 1900 to 0700 Pt spent her night playing the [employer] and socializing. Pt did take a shower again last night. Pt was polite and cooperative. Pt hung out in the DR talking to peers for awhile. Pt first appeared asleep at 23:45 and was observed every 15 minutes through the night as directed.
[2016-03-15] MEDS: diphenhydrAMINE 50 mg Capsule PO PRN ×3 (04:27→19:51)
--- NOTE | 2016-03-15 06:12 | NUR ---
Nursing 11p-7a Disrupted sleep. Pt slept from [id number]. Walked the hallway for a little while and had a snack. She c/o painful ingrown toenail. She requested and received Benadryl 50mg po prn @ 0427 for itchiness. Medication appeared helpful. She returned to bed and appeared asleep by 0500. She remains asleep at current time. Total sleep 4+ hours.
[2016-03-15] MEDS: Divalproex (QD) 500 mg ER24 Tablet PO SCH ×2 (08:30→22:38)
[2016-03-15] MEDS: Pantoprazole 40 mg ER24 Tablet PO SCH (08:44)
--- NOTE | 2016-03-15 13:14 | NUR ---
Nursing Day Shift- S- "I need a higher dose of the Ibuprofen. I'm groggy today from the medications." O- Pt. appeared asleep at the start of the day shift. She had slept an interrupted 5.5 hours per report. Pt. took her prescribed AM medications other then Klonopin. She was polite and appropriate. Pt. requested and received Ibuprofen 200 mg with Tylenol 650 mg and Benadryl 50 mg at 0950. She eat well and participated in groups. Pt's 3rd toe on the L foot appeared to have an irritated ingrown nail. It was evaluated by the MD and treated with Bacitracin and a band aid. A- Cori symptoms decreasing. P- Cont. BHTP.
[2016-03-15] MEDS: Magnesium Hydroxide 10 mL Oral Concentration PO PRN (13:35)
[2016-03-15 15:23] VITALS: BP 129/83; PULSE 68; RESP 16
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
--- NOTE | 2016-03-15 18:16 | NUR ---
[facility] Day Shift Pt maintained behavioral control throughout the shift. PT affect appears mostly flat, occasionally bright. Pt spends most of the shift pacing the unit, interacting with peers, and engaging in unit activities. Pt is appropriate with staff and peers when active on the unit. Pt attended community meeting and all group activities throughout the shift. Pt attended all meals and ate approx 100% of all meals.
--- NOTE | 2016-03-15 20:46 | PCM.PNPSY ---
Subjective Date of Service Mar 15, 2016 Subjective The patient is more calm overall today but was concerned about being off her Depakote this morning which apparently was a pharmacy error. She reports some itching from Depakote with no rash. The patient requested an increase in her dose of ibuprofen to 800 mg. The patient reported pain from a left third toe ingrown toenail. On observation today it does appear to be ingrown with mild swelling without sign of infection. She reported no problems with other patients and has been appropriately engaging in the milieu. She reports still having some constipation. No acute psychotic symptoms and mood overall appears improved. The patient requests stopping the morning clonazepam and only using this as needed due to sedation. Sleep: Patient reports slept all night, staff report 5. Hours Appetite: Increased due to Depakote Suicidal and homicidal ideation: Denies Auditory hallucinations/Visual hallucinations: Denies Other Psychotic Symptoms: N/A Anxiety: Denies Depression: Denies Current Medications Current Medications Aripiprazole 15 mg DAILY PO Last administered on 03/15/16 08:47; Admin Dose 15 MG; Start 03/15/16 at 08:30 Divalproex Sodium 1,000 mg Q24 PO Last administered on 03/14/16 22:41; Admin Dose 1,000 MG; Start 03/14/16 at 21:30; Stop 03/15/16 at 10:20; Status DC Mental Status Exam Vital Signs Vital Signs Date Time Temp Pulse Resp B/P Pulse Ox O2 Delivery O2 Flow Rate FiO2 03/15/16 15:23 36.4 68 16 129/83 Appearance: Neat/well groomed Attitude: Cooperative, Guarded Behavior: No unusual behavior Affect: Restricted Mood: Anxious (mild) Thought Process/Associations: Logical/Sequential, Goal Directed Speech Production: Normal Speech Rate: Normal Speech Articulation: Normal Thought Content: Suspicious Danger to Self/Suicidal Ideati: None Danger to Others: None Delusions: Paranoid (Endorses, mild) Hallucinations: Auditory (Denies), Visual (Denies) Consciousness: Alert, Hyper-vigilant Orientation: Person, Place, Date, Situation Memory: Grossly Intact Estimate Intellectual Function: Average Attention/Concentration & Cogn: Impaired (but improving) Insight: Limited Judgement: Limited Mental Health Plan The patient is a 55-year-old white female with a history of severe bipolar mood disorder with psychosis. She has been admitted to multiple inpatient psychiatric hospitals throughout the state over the past 15 years. When she takes her medications, low-dose Klonopin, Haldol and lithium, she tends to do quite well. The patient is also responded well to aripiprazole in the past. She apparently has been off medications for an unclear amount of time and has developed a manic episode. Historically, when manic, she tends to have a hyperreligious, hypersexual focus with paranoia and extreme irritability. She tends to threaten other people. Her current admission appears to be consistent with this pattern. The patient appears to be responding well to aripiprazole and we discussed the use of Abilify Maintena and the patient was agreeable. Attempts were made to contact podiatry but were unsuccessful. We will need to follow up again in the morning. The patient is agreeable to staying on Depakote while she stabilizes on aripiprazole. Because the patient appears to be calling, she appears to tolerate lower doses of clonazepam and the morning dose could be discontinued as well and replaced by as needed medication. She may be experiencing some disinhibition and so this may actually benefit her mental status. Her sleep appears improved. [place] AXIS I 1. Bipolar mood disorder, manic with psychotic features. 2. Posttraumatic stress disorder. 3. History of polysubstance abuse. AXIS II Defer. AXIS III 1. Hypertension. 2. Insulin-dependent diabetes mellitus. 3. Hypothyroidism. 4. Obesity. AXIS IV severe with poor coping skills, recent family discord, poor coping skills AXIS V Current global assessment of functioning equal to 35. Medications Depakote ER 1000 mg at night Aripiprazole 15 mg daily Klonopin 1 mg twice a day 2 mg at bedtime Treatments 1. The patient is encouraged to participate with group and milieu therapy. 2. The patient is encouraged to continue medications as prescribed. 3. The patient will meet with the treatment team on a daily basis to assess symptoms, side effects, and response to treatment. 4. Continue aripiprazole 15 mg daily and increase tomorrow or the following day. 5. Continue Depakote ER 1000 mg at bedtime. 6. Thorazine 100 mg for agitation with override. 7. Discontinue a.m. clonazepam. 8. Referred to podiatry. 9. Ibuprofen 800 mg by mouth 3 times a day when necessary pain 10. Consider long-acting injectable medication to assist with medication adherence in the community. 11. Anticipated length of stay 7-14 days with discharge on less restrictive order. Jez Stephens MD Mar 15, 2016 20:46
[2016-03-16] MEDS: Benzocaine-Menthol Lozenge 2/Pkg PO PRN (02:12)
--- NOTE | 2016-03-16 05:22 | NUR ---
Nursing, Nights, 11-7 s/o- has appeared to sleep 2345 -0200 during q 15 minute assessments. a- no apparent distress. p- monitor behavior/emotional state, quality, times and amount of sleep, use and effect of medication.
--- NOTE | 2016-03-16 05:29 | NUR ---
Observations 1900 to 0700 Pt spent her night out in the DR socializing. Pt did take a shower again last night. Pt was polite and cooperative. Pt hung out in the DR talking to peers for awhile. Pt first appeared asleep at 23:45 and was observed every 15 minutes through the night as directed.
[2016-03-16] MEDS: Pantoprazole 40 mg ER24 Tablet PO SCH (07:48)
[2016-03-16] MEDS: Magnesium Hydroxide 10 mL Oral Concentration PO PRN (10:21)
--- NOTE | 2016-03-16 12:21 | NUR ---
NURS [id number] S "I doing alright." O Affect upbeat. Demeanor calm, pleasant, and cooperative. Speech pressured, monotone, and loud. Though content clear. Oriented to person, place, and time. Insight fair. Did not endorse AH, VH, or SI. A Pt is doing well on current care plan. P Continue with treatment plan and continue to monitor. VS 132/74; 69; 36.3
--- NOTE | 2016-03-16 16:08 | NUR ---
Nursing Day Shift- S- "That ingrown toenail is really hurting me." O- Pt. had slept 5 plus hours per shift report. She was awake and dressed for breakfast. Pt. took her AM medications without resistance. She has been calmer with a decreased vocal tone and agitation. The hospitalist has been notified to consult on her toe. A- Appears to have decreased yahaira and paranoia. P- Cont. TP.
--- NOTE | 2016-03-16 17:28 | PCM.PNPSY ---
Subjective Date of Service Mar 16, 2016 Subjective The patient reports that she had "great sleep" but woke up in the middle the night as her sugar was low. She then had a number of snacks and returned to bed. She reports a number of concerns around her appetite and Depakote. We discussed other options such as lamotrigine, lithium, Trileptal, Tegretol. The patient had issues with all of these medications. We also discussed possible alternatives such as lurasidone but patient wished to continue with aripiprazole. The patient requested follow-up labs on lipids and her thyroid given her past history. The patient reported no acute medical issues. Sleep: 4+ hours Appetite: "Too good" "Depakote gives me the munchies." Suicidal and homicidal ideation: Denies Auditory hallucinations/Visual hallucinations: Denies Other Psychotic Symptoms: N/A Anxiety: Denies Depression: "Yes, I miss my grandchildren and daughter." Current Medications Current Medications Aripiprazole 15 mg DAILY PO Last administered on 03/16/16 07:47; Admin Dose 15 MG; Start 03/15/16 at 08:30 Divalproex Sodium 1,000 mg Q24 PO Last administered on 03/14/16 22:41; Admin Dose 1,000 MG; Start 03/14/16 at 21:30; Stop 03/15/16 at 10:20; Status DC Divalproex Sodium 1,000 mg Q24H PO Last administered on 03/15/16 22:38; Admin Dose 1,000 MG; Start 03/15/16 at 21:00 Ibuprofen 800 mg TID PRN PO Last administered on 03/16/16 16:39; Admin Dose 800 MG; Start 03/15/16 at 20:53 Mental Status Exam Appearance: Neat/well groomed Attitude: Cooperative, Guarded Behavior: No unusual behavior Affect: Restricted Mood: Anxious (mild) Thought Process/Associations: Logical/Sequential, Goal Directed Speech Production: Normal Speech Rate: Normal Speech Articulation: Normal Thought Content: Suspicious Danger to Self/Suicidal Ideati: None Danger to Others: None Delusions: Paranoid (Endorses, mild) Hallucinations: Auditory (Denies), Visual (Denies) Consciousness: Alert, Hyper-vigilant Orientation: Person, Place, Date, Situation Memory: Grossly Intact Estimate Intellectual Function: Average Attention/Concentration & Cogn: Impaired (but improving) Insight: Limited Judgement: Limited Mental Health Plan The patient is a 55-year-old white female with a history of severe bipolar mood disorder with psychosis. She has been admitted to multiple inpatient psychiatric hospitals throughout the state over the past 15 years. When she takes her routine psychiatric medications medications she tends to do well in the community. She apparently had been off medications for an unclear amount of time and had developed a manic episode. Historically, when manic, she tends to have a hyperreligious, hypersexual focus with paranoia and extreme irritability. She tends to threaten other people. Her current admission appears to be consistent with this pattern. The patient appears to be responding well to aripiprazole and we discussed the use of Abilify Maintena and the patient was agreeable yesterday but is now concerned about the potential difficulty in managing side effects should they arise with a long-acting medication. The patient is agreeable to staying on Depakote while she stabilizes on aripiprazole. The patient appears to be tolerating the switch to as needed formulation for clonazepam. Her sleep appears improved. [place] AXIS I 1. Bipolar mood disorder, manic with psychotic features. 2. Posttraumatic stress disorder. 3. History of polysubstance abuse. AXIS II Defer. AXIS III 1. Hypertension. 2. Insulin-dependent diabetes mellitus. 3. Hypothyroidism. 4. Obesity. AXIS IV severe with poor coping skills, recent family discord, poor coping skills AXIS V Current global assessment of functioning equal to 35. Medications Depakote ER 1000 mg at night Aripiprazole 15 mg daily Klonopin 1 mg twice a day 2 mg at bedtime Treatments 1. The patient is encouraged to participate with group and milieu therapy. 2. The patient is encouraged to continue medications as prescribed. 3. The patient will meet with the treatment team on a daily basis to assess symptoms, side effects, and response to treatment. 4. Increase aripiprazole to 20 mg daily. 5. Continue Depakote ER 1000 mg at bedtime. 6. Thorazine 100 mg for agitation with override. 7. Check TSH, lipids, hemoglobin A1c, Depakote level, CBC, and CMP in the morning. 8. Referred to podiatry. 9. Consider long-acting injectable medication to assist with medication adherence in the community. 10. Anticipated length of stay 7-14 days with discharge on less restrictive order. Jez Stephens MD Mar 16, 2016 17:28
--- NOTE | 2016-03-16 18:16 | NUR ---
Service Center Specialist/Counselor: S: "I have an ingrown toenail and I need it taken out." O: Patient only slept 4+ hours last night as per staff. She denies S/I and H/I. She denies auditory and visual hallucinations. Patient endorses depression because "I'm missing my grandchildren and daughters. That's why it's not good for me to be in here." A: Patient is cooperative, guarded, anxious, restricted affect, suspicious, paranoid, limited insight, limited judgment. P: Follow care plan, coordinate out-patient providers.
--- NOTE | 2016-03-16 18:56 | NUR ---
[facility] Day Shift Pt affect and behavior mostly unchanged from previous shift. Pt maintained behavioral control throughout the shift. Pt affect appears mostly flat, occasionally bright. Pt spends most of the shift pacing the unit, interacting with peers, and engaging in unit activities. Pt remains appropriate with staff and peers when active on the unit. Pt attended community meeting and all group activities throughout the shift. Pt attended all meals and ate approx 100% of all meals.
[2016-03-16] MEDS: Divalproex (QD) 500 mg ER24 Tablet PO SCH (19:18)
[2016-03-16 19:22] VITALS: BP 132/74; PULSE 69; RESP 16
--- NOTE | 2016-03-16 19:33 | NUR ---
NURSING NOTE [id number] Orientation= x2 Mood= "I have edema in my stomach, can you tell the doctor that?" Affect= pleasant, cooperative, appropriate Behavior= pt visible in the milieu, social w/peers, took a shower, med compliant Thought processes= still has paranoia regarding her medications but agreeable to take them, denies AH/VH, endorses depression, no SI/HI. Addendum: 03/16/16 at 2223 by TERESA STUART RN PRN Ibuprofen 800 mg for neck+ back pain 10/22, "helped some" upon reassessment. Pt. also c/o ingrown toenail pain (podiatry consult ordered)
[2016-03-17] MEDS: diphenhydrAMINE 50 mg Capsule PO PRN ×4 (01:56→22:15)
--- NOTE | 2016-03-17 05:31 | NUR ---
Nursing Noc Pt continues to have difficulty achieving quality sleep. Mood and affect more elated that usaul. Pt appropriate with staff without verbal aggression or threatening behavior. Podiatry consult ordered last night and will need a DR to DR to happen today to complete process. Continuing to monitor Q15 minutes for safety, mood, behavior, emotional state and sleep times. CP
--- NOTE | 2016-03-17 05:40 | NUR ---
Pt out on unit much of shift. Pt walking halls having a hard time sleeping. Slept 2230-115, 230-415. Pt observed every 15 minutes as ordered.
[2016-03-17 08:20] LABS: BASOPHILS % (AUTO) 0.2 % (0-3); EOSINOPHILS % (AUTO) 6.8 % (0-5); MONOCYTES % (AUTO) 6.9 % (4-12); Mean Corpuscular Hemoglobin 29.5 pg (27.0-35.0); Mean Corpuscular Volume 87.6 fL (81-100); NEUTROPHILS % (AUTO) 49.6 % (40-74); Platelet Count 417 bil/L (150-400)
[2016-03-17] MEDS: Pantoprazole 40 mg ER24 Tablet PO SCH (08:37)
[2016-03-17 09:30] VITALS: BP 136/86; PULSE 69; RESP 17
[2016-03-17] MEDS: Magnesium Hydroxide 10 mL Oral Concentration PO PRN (10:57)
--- NOTE | 2016-03-17 11:37 | NUR ---
Nursing Dayshift: S: "You take a muffin tin and put two to three oysters in each then you take butter and lots of garlic..." O: Patient sharing a recipe with a peer and staff. Has been pleasant on approach. Cordial to staff. Ambulating the lam this AM. Attending group activities. Good appetite. A: Med compliant. Pleasant mood. P: CPOC. Monitor mood and behavior.
--- NOTE | 2016-03-17 18:22 | NUR ---
[facility] Day Shift Pt affect and behavior mostly unchanged from previous shift. Pt maintained behavioral control throughout the shift. Pt affect appears mostly flat, occasionally bright (somewhat more manic in the AM). Pt spends most of the shift pacing the unit, interacting with peers, and engaging in unit activities. Pt remains appropriate with staff and peers when active on the unit. Pt attended community meeting and all group activities throughout the shift. Pt attended all meals and ate approx 80-100% of all meals.
--- NOTE | 2016-03-17 18:43 | NUR ---
Designer/Counselor: S: "I thought somebody was going to look at my ingrown toenail?" O: Patient only slept 4.5 hours last night as per staff. She denies S/I and H/I. She denies auditory and visual hallucinations. Patient endorses depression because "I'm missing my grandchildren and daughters. Anxiety is 0/10. A: Patient is cooperative, guarded, anxious, restricted affect, paranoid, limited insight, limited judgment. P: Follow care plan, coordinate out-patient providers.
--- NOTE | 2016-03-17 18:49 | PCM.PNPSY ---
Subjective Date of Service Mar 17, 2016 Subjective The patient was concerned about sleep walking. The patient had taken additional 2 doses of clonazepam at bedtime which may have led to somnambulance. The patient reported that Lunesta worked well for insomnia but will request this when discharged from the hospital. We discussed her low TSH and slightly elevated free T4; however, the patient was reluctant to decrease the dose of thyroid medication until discussed with her outpatient physician, Dr. Benoit. She reported some itchiness from Depakote but no rash. The patient was more open to using long-acting Abilify upon discharge. The patient reported no acute medical issues. Podiatry was consulted and would be following up with patient. Sleep: 4.5+ hours Appetite: "Okay." Suicidal and homicidal ideation: Denies Auditory hallucinations/Visual hallucinations: Denies Other Psychotic Symptoms: N/A Anxiety: "Just when people are getting in arguments." Depression: "I still miss my daughter and grandchildren." Current Medications Current Medications Divalproex Sodium 1,000 mg Q24H PO Last administered on 03/16/16 19:18; Admin Dose 1,000 MG; Start 03/15/16 at 21:00 Ibuprofen 800 mg TID PRN PO Last administered on 03/17/16 13:37; Admin Dose 800 MG; Start 03/15/16 at 20:53 Mental Status Exam Appearance: Neat/well groomed Attitude: Cooperative, Guarded Behavior: No unusual behavior Affect: Restricted Mood: Anxious (mild) Thought Process/Associations: Logical/Sequential, Goal Directed Speech Production: Normal Speech Rate: Normal Speech Articulation: Normal Thought Content: Suspicious (but decreasing) Danger to Self/Suicidal Ideati: None Danger to Others: None Delusions: Paranoid (Endorses, mild) Hallucinations: Auditory (Denies), Visual (Denies) Consciousness: Alert, Hyper-vigilant Orientation: Person, Place, Date, Situation Memory: Grossly Intact Estimate Intellectual Function: Average Attention/Concentration & Cogn: Impaired (but improving) Insight: Good Judgement: Limited Result Diagram: 03/17/16 0803/17/16 08 Mental Health Plan The patient is a 55-year-old white female with a history of severe bipolar mood disorder with psychosis. She has been admitted to multiple inpatient psychiatric hospitals throughout the state over the past 15 years. When she takes her routine psychiatric medications medications she tends to do well in the community. She apparently had been off medications for an unclear amount of time and had developed a manic episode. Historically, when manic, she tends to have a hyperreligious, hypersexual focus with paranoia and extreme irritability. She tends to threaten other people. Her current admission appears to be consistent with this pattern. The patient appears to be responding well to aripiprazole and we discussed the use of Abilify Maintena and the patient was again agreeable and expressed frustration in the medication changes she has had in recent years. The patient is agreeable to staying on Depakote while she stabilizes on aripiprazole. The patient appears to be tolerating the switch to as needed formulation for clonazepam. Her sleep appears somewhat improved. Labs from today showed a sodium that was somewhat low at 131, potassium 5.5, chloride 94. TSH 0.104, free T4 1.92. Valproic acid level 53. [place] AXIS I 1. Bipolar mood disorder, manic with psychotic features. 2. Posttraumatic stress disorder. 3. History of polysubstance abuse. AXIS II Defer. AXIS III 1. Hypertension. 2. Insulin-dependent diabetes mellitus. 3. Hypothyroidism. 4. Obesity. AXIS IV severe with poor coping skills, recent family discord, poor coping skills AXIS V Current global assessment of functioning equal to 35. Medications Depakote ER 1000 mg at night Aripiprazole 15 mg daily Klonopin 2 mg at bedtime Treatments 1. The patient is encouraged to participate with group and milieu therapy. 2. The patient is encouraged to continue medications as prescribed. 3. The patient will meet with the treatment team on a daily basis to assess symptoms, side effects, and response to treatment. 4. Increase aripiprazole to 20 mg daily. 5. Continue Depakote ER 1000 mg at bedtime. 6. Thorazine 100 mg for agitation with override. 7. We will reduce clonazepam to 1 mg at bedtime. 8. Referred to podiatry. 9. Consider long-acting injectable medication to assist with medication adherence in the community. 10. Anticipated length of stay 7-14 days with discharge on less restrictive order. Jez Stephens MD Mar 17, 2016 18:49
[2016-03-17] MEDS: Divalproex (QD) 500 mg ER24 Tablet PO SCH (22:15)
--- NOTE | 2016-03-18 04:59 | NUR ---
Pt out on unit much of shift. Pt walking halls having a hard time sleeping. Slept 2345-115, 215-500. Pt observed every 15 minutes as ordered.
--- NOTE | 2016-03-18 05:23 | NUR ---
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 Doctor said he was going to decrease my Depakote, I guess he hasn't done it yet". O: Patient continues to reports hip and shoulder pain. Reports she is itching from the Depakote (which is given with Benadryl) 4.45 hrs sleep. A: Patient continues to be grandiose and manic, however, less manic than last weekend and more pleasant and cooperative than last weekend. P: Monitor for response to treatment. Q15 minute safety checks for safety. Follow plan of care. Addendum: 03/18/16 at 0526 by BONG CUBA RN PRN's Motrin 800 mg @ 2009 for hip pain 11/21. Effective, pain reduced to 08/21. Tylenol 650mg @ 129 for hip pain 11/21.
[2016-03-18] MEDS: diphenhydrAMINE 50 mg Capsule PO PRN ×2 (05:28→21:25)
[2016-03-18] MEDS: Pantoprazole 40 mg ER24 Tablet PO SCH (08:12)
--- NOTE | 2016-03-18 10:01 | PCM.CHPPOD ---
Subjective Date of service Mar 17, 2016 History of Present Illness 55-year-old female evaluated wrist distress. Consultation was placed today for evaluation of the left third toe. The patient is diabetic. The patient states that she frequently gets ingrown toenails of the left foot and she attempts to debride herself with resulting infection. Patient states that she is currently treating the issue with a Band-Aid and she believes it is improving Allergy Allergies: Coded Allergies: lamotrigine (Verified Allergy, Intermediate, skin rash, 12/01/14) Sulfa (Sulfonamide Antibiotics) (Verified Allergy, Unknown, 11/20/14) loxapine (Verified Allergy, Unknown, 11/20/14) zolpidem (Verified Allergy, Unknown, 11/20/14) Medications ([diphenHYDramine]) 25 MG CAPSULE 25 MG PO HS Albuterol HFA (Proair HFA) 8.5 Gm Hfa.aer.ad 2 PUFFS INHALATION Q4H PRN PRN For Shortness of Breath Atorvastatin (Lipitor) 40 Mg Tablet 40 MG PO DAILY Clonazepam (Clonazepam) 1 Mg Tablet 1 MG PO TID Glipizide (Glipizide) 10 Mg Tablet 10 MG PO BID Haloperidol (Haloperidol) 5 Mg Tablet 5 MG PO HS Ibuprofen (Ibuprofen) 200 Mg Capsule 1 TABLET PO Q4-6hr PRN PRN For Pain Levothyroxine (Levothyroxine) 25 Mcg Tablet 25 MCG PO DAILY Levothyroxine (Levothyroxine) 200 Mcg Tablet 200 MCG PO DAILY Lisinopril (Lisinopril) 5 Mg Tablet 5 MG PO DAILY [place] Carbonate ([place] Carbonate) 300 Mg Tablet 300 MG PO BID [place] Carbonate ([place] Carbonate) 300 Mg Tablet.er 300 MG PO BID Metformin (Glucophage) 1,000 Mg Tablet 1,000 MG PO BID Niacinamide (Niacin) 500 Mg Tablet 1 TAB PO Omeprazole (Omeprazole) 40 Mg Capsule.dr 40 MG PO DAILY Prazosin (Minipress) 1 Mg Capsule 3 MG PO HS Past Medical History Surgeries: No Medical History: Surgical History: Social History Hx Alcohol Use: No Hx Substance Use: Yes Hx Tobacco Use: No Smoking Status: Unknown if Ever Smoker Podiatry Consult Exam Vital Signs Vital Sign - Last Date Time Temp Pulse Resp B/P Pulse Ox O2 Delivery O2 Flow Rate FiO2 03/17/16 09:30 36.3 69 17 136/86 Result Diagram: 03/17/16 0800 03/17/16 0800 Lab Test 02/22/16 09:35 02/22/16 10:10 02/29/16 07:20 03/04/16 09:34 Hold Urine Received (Received) Hold [place] Top Tube Received (Received) Alcohol, Quantitative < 10mg/dL (0-10) [place] Level 0.3mEq/L (0.5-1.5) Hemoglobin A1c 6.3% (4.8-5.6) Test 03/17/16 08:00 White Blood Count 8.1th/mm3 (3.8-10.1) Red Blood Count 4.04mil/mm3 (3.90-5.20) Hemoglobin 11.9g/dL (12.0-15.6) Hematocrit 35.4% (35.0-46.0) Mean Corpuscular Volume 87.6fL (81-100) Mean Corpuscular Hemoglobin 29.5pg (27.0-35.0) Mean Corpuscular Hemoglobin Concent 33.6% (32.0-37.0) Red Cell Distribution Width 12.5% (12.3-15.4) Platelet Count 417bil/L (150-400) Neutrophils (%) (Auto) 49.6% (40-74) Lymphocytes (%) (Auto) 36.4% (14-46) Monocytes (%) (Auto) 6.9% (4-12) Eosinophils (%) (Auto) 6.8% (0-5) Basophils (%) (Auto) 0.2% (0-3) Sodium Level 131mEq/L (134-144) Potassium Level 5.5mEq/L (3.5-5.2) Chloride Level 94mEq/L (97-108) Carbon Dioxide Level 25mmol/L (18-29) Blood Urea Nitrogen 8mg/dL (6-24) Creatinine 0.61mg/dL (0.57-1.00) Estimat Glomerular Filtration Rate 147mL/min (>59) Glucose Level 94mg/dL (60-99) Calcium Level 8.8mg/dL (8.5-10.1) Total Bilirubin 0.2mg/dL (0.0-1.2) Aspartate Amino Transf (AST/SGOT) 15U/L (0-50) Alanine Aminotransferase (ALT/SGPT) 16U/L (0-32) Alkaline Phosphatase 65U/L (25-150) Total Protein 6.7g/dL (6.4-8.4) Albumin 4.2g/dL (3.4-5.0) Triglycerides Level 97mg/dL (0-149) Cholesterol Level 119mg/dL (100-199) LDL Cholesterol, Calculated 42.600mg/dL (0-99) VLDL Cholesterol 19.400mg/dL HDL Cholesterol 57mg/dL (>39) Cholesterol/HDL Ratio 2.09 (0.0-4.4) Thyroid Stimulating Hormone (TSH) 0.104uIU/mL (0.450-4.500) Free Thyroxine 1.92ng/dL (0.82-1.77) Valproic Acid (Depakene) Level 53ug/mL (50-125) Exam General: Alert, Oriented X3, Cooperative, No Acute Distress Lower Extremities: Bilateral: Extremity warm Lower Extremity Pulses: Palpable: Left Dorsalis Pedis Left Posterior Tibal Right Dorsalis Pedis Right Posterior Tibal Podiatry WOUND : Wound Location/Description No open wounds are present Dystrophic left third digit lateral nail border without signs of causing really no surrounding erythema no noted infection, the lateral toenail more appears recently have been debrided or clipped Assessment & Plan Assessment Resolved left digit ingrown toenail Problems: Plan Evaluation today reveals previously ingrown toenail with a recent history of self trimming by the patient. This ingrown toenail appears to have resolved without issue there is a minimal amount of surrounding dry skin. I have discussed with the patient that at this time she no longer needs a bandage or any treatment for this area other than normal hygienic care. She will continue to monitor this area. No further needs at this time. Please reconsult if her ingrown toenail appears I will be happy to reexamine and treat this issue Dave Ramesh DPM Mar 18, 2016 10:01
[2016-03-18] MEDS: Magnesium Hydroxide 10 mL Oral Concentration PO PRN (14:33)
--- NOTE | 2016-03-18 17:32 | NUR ---
Payroll Technician/Counselor: S: "I think I would do better with the shot instead of taking pills every day." O: Patient only slept 4.45 hours last night as per staff. She denies S/I and H/I. She denies auditory and visual hallucinations. Depression is 0/10 and anxiety is 0/10. She states she misses her grandchildren and daughters. A: Patient is cooperative, guarded, anxious, restricted affect, paranoid, limited insight, limited judgment. P: Follow care plan, coordinate out-patient providers.
--- NOTE | 2016-03-18 17:36 | PCM.PNPSY ---
Subjective Date of Service Mar 18, 2016 Subjective The patient reports that she slept better having not taken some Klonopin at bedtime. She reports that she cannot use Restoril, Ambien, or trazodone. She reports she can only use Lunesta which is non-formulary. She otherwise reports doing well and plans to stay with her daughter a week before returning home. She does report some water retention which she attributes to Depakote. We discussed that until her medication has been stabilized, she would need to remain on the mood stabilizer. The patient was open to using long-acting Abilify and we will confirm this with her outpatient provider on Sunday. The patient would like an injection prior to discharge if they approved. Patient seen by podiatry, and no further action needed. Sleep: 5+ hours Appetite: "Too good." Suicidal and homicidal ideation: Denies Auditory hallucinations/Visual hallucinations: Denies Other Psychotic Symptoms: N/A Anxiety: Denies Depression: "I just miss my kids." Current Medications Current Medications Clonazepam 1 mg HS PO Last administered on 03/17/16t 22:15; Admin Dose 1 MG; Start 03/17/16 at 21:00 Mental Status Exam Appearance: Neat/well groomed Attitude: Pleasant, Cooperative, Guarded Behavior: No unusual behavior Affect: Restricted Mood: Anxious (mild) Thought Process/Associations: Logical/Sequential, Goal Directed Speech Production: Normal Speech Rate: Normal Speech Articulation: Normal Thought Content: Appropriate, Suspicious (but decreasing) Danger to Self/Suicidal Ideati: None Danger to Others: None Hallucinations: Auditory (Denies), Visual (Denies) Consciousness: Alert, Hyper-vigilant Orientation: Person, Place, Date, Situation Memory: Grossly Intact Estimate Intellectual Function: Average Attention/Concentration & Cogn: Grossly Intact Insight: Good Judgement: Limited Result Diagram: 03/17/16 0800 03/17/16 0800 Mental Health Plan The patient is a 55-year-old white female with a history of severe bipolar mood disorder with psychosis. She has been admitted to multiple inpatient psychiatric hospitals throughout the state over the past 15 years. When she takes her routine psychiatric medications medications she tends to do well in the community. She apparently had been off medications for an unclear amount of time and had developed a manic episode. Historically, when manic, she tends to have a hyperreligious, hypersexual focus with paranoia and extreme irritability. She tends to threaten other people. Her current admission appears to be consistent with this pattern. The patient appears to be responding well to aripiprazole and we discussed the use of Abilify Maintena and the patient was again agreeable and expressed frustration in the medication changes she has had in recent years. The patient is agreeable to staying on Depakote while she stabilizes on aripiprazole. The patient appears to be tolerating the switch to as needed formulation for clonazepam. Her sleep appears somewhat improved. [place] AXIS I 1. Bipolar mood disorder, manic with psychotic features. 2. Posttraumatic stress disorder. 3. History of polysubstance abuse. AXIS II Defer. AXIS III 1. Hypertension. 2. Insulin-dependent diabetes mellitus. 3. Hypothyroidism. 4. Obesity. AXIS IV severe with poor coping skills, recent family discord, poor coping skills AXIS V Current global assessment of functioning equal to 35. Medications Depakote ER 1000 mg at night Aripiprazole 15 mg daily Klonopin 1 mg at bedtime with 1mg q6hr prn Treatments 1. The patient is encouraged to participate with group and milieu therapy. 2. The patient is encouraged to continue medications as prescribed. 3. The patient will meet with the treatment team on a daily basis to assess symptoms, side effects, and response to treatment. 4. Increase aripiprazole to 20 mg daily. 5. Continue Depakote ER 1000 mg at bedtime. 6. Thorazine 100 mg for agitation with override. 7. We will continue to taper Klonopin as tolerated. 8. Referred to podiatry, appreciate recommendations. 9. Consider long-acting injectable medication to assist with medication adherence in the community. 10. Anticipated length of stay 6-7 days with discharge on less restrictive order. Jez Stephens MD Mar 18, 2016 14:04
--- NOTE | 2016-03-18 17:53 | NUR ---
Observations 0700 to 1900 Pt affect and mood was friendly, content and bright. Pt speech and eye contact was good. Pt was social with peers. Pt attended meals in D.R. and ate approximately 75% of meals. Pt ate snack. Pt maintained behavior throughout the shift. Pt was polite, pleasant and cooperative. Pt attended groups and unit activities. Pt walked/paced the hallway for exercise. Pt played Wii with peers in group room. Pt was observed every 15 minutes throughout the shift as ordered.
[2016-03-18 19:50] VITALS: BP 144/90; PULSE 90; RESP 15
[2016-03-18] MEDS: Divalproex (QD) 500 mg ER24 Tablet PO SCH (21:25)
[2016-03-19] MEDS: Benzocaine-Menthol Lozenge 2/Pkg PO PRN (03:37)
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
--- NOTE | 2016-03-19 06:51 | NUR ---
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 Patient requested to have her blood sugar checked because "she felt cold". B.S. checked and found to be 115. Patient also complained of general body aches and received Tylenol 650 mg po, then retired to bed for a couple of hours. Patient again up to dining room at 0330. Patient reports she feels "like I have a cold coming on" Patient taking fluids, received Cepacol lozenge. Patient retired back to bed,appears to be sleeping. Patient awake early am and received Ibuprofen 800 mg po for body aches "especially my hips" Patient has been calm and polite on approach.
[2016-03-19] MEDS: Pantoprazole 40 mg ER24 Tablet PO SCH (07:31)
[2016-03-19] MEDS: ARIPiprazole 10 mg Tablet PO SCH (08:11)
[2016-03-19 09:00] VITALS: BP 127/73; PULSE 95; RESP 17
--- NOTE | 2016-03-19 11:44 | NUR ---
Nursing Note [id number] Behavior S/O: Pt had blood sugar this morning of 107. Pt states, "I try to watch what I eat." Pt took all am medications as ordered, but c/o levothyroxine not being the correct dose. "I want my outpatient provider to change to dose if it needs changed. I've been on 225 mg for 30 years." Pt took all am medications as ordered. Pt has been out in the milieu. Pleasant with peers. Cooperative with cares & medications. Pt con't to pace hallways much of the day. A: Pt con't to be hypomanic. P: Provide supportive environment. Monitor medications & effects.
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
--- NOTE | 2016-03-19 18:24 | NUR ---
Observations [id number] Pt was awake in the dining area upon start of shift. Pt was in a pleasant mood much of the day, attending all groups and socializing with peers. Pt continues to talk about how tired she is due to medication. She stated that she will be leaving on , and she is very excited about it. Pt became emotional when talking about her daughters and their drug use. Pt watched the football game in the evening and spent time on the phone talking with family. She ate 75% of meals. Pt paced halls for exercise. She was observed every 15 minutes of shift as directed.
[2016-03-19] MEDS: Divalproex (QD) 500 mg ER24 Tablet PO SCH (21:03)
[2016-03-19] MEDS: diphenhydrAMINE 50 mg Capsule PO PRN (21:12)
[2016-03-19] MEDS: LORazepam 1 mg Tablet PO PRN (23:31)
[2016-03-20] MEDS: diphenhydrAMINE 50 mg Capsule PO PRN ×2 (02:14→16:46)
--- NOTE | 2016-03-20 05:02 | NUR ---
Observations from [id number] Pt spent the evening socializing with peers on the unit and watching the snowfall out the window. Pt is friendly and appropriate with peers and staff. Pt was asleep from 3089-0305 and 0315 to present. Pt has been monitored every 15 minutes as directed
--- NOTE | 2016-03-20 06:22 | NUR ---
Nursing note: Patient awake early shift with several somatic concerns. Patient c/o chronic back pain, received Tylenol 650 mg with warm packs and reported some relief. Patient also complains of "itching all over" and pulls up her shirt to show me slight reddened area on her abdomen. Patient received repeat Bendryl 50 mg po and Ativan 2 mg at 0230. Patient concerned over dark hairs growing on her chin. Patient has been pleasant, but with rambling conversation with staff or any other peer that is awake. Patient restless with fragmented sleep much of the night.
[2016-03-20] MEDS: Pantoprazole 40 mg ER24 Tablet PO SCH (07:57)
[2016-03-20] MEDS: ARIPiprazole 10 mg Tablet PO SCH (07:58)
[2016-03-20 08:05] VITALS: BP 134/83; PULSE 64; RESP 14
--- NOTE | 2016-03-20 14:23 | NUR ---
Nursing Note [id number] Behavior S/O: Pt ate 100% of breakfast & lunch. VS stable. Pt attending groups during the day. Interacts appropriately with peers & staff. Conversation tracking clear & organized with normal rate & rhythm. Pt took all medications without problems. A: No psychotic sx noted at this time. P: Provide supportive environment. Monitor medications & effects.
--- NOTE | 2016-03-20 18:56 | NUR ---
Observations [id number] Pt was awake in the dining area upon start of shift. Pt was friendly with staff and peers. She stated that she is excited to leave, having been here for over a month. Pt continues to bring up past trauma in a group setting, but is easily redirected. She attended all groups and meals, eating 100%. Pt walked the halls this afternoon for exercise. She was observed every 15 minutes of shift as directed.
--- NOTE | 2016-03-20 20:15 | PCM.PNPSY ---
Subjective Date of Service Mar 20, 2016 Subjective The patient reports that she believes that the clonazepam is causing itching and would like to stop it. The patient reports that she is feeling better today and not as sad about her daughter. She reported that she is feeling less tremulous with the decrease in clonazepam (which appears to objectively be true) . She requested that we not change her thyroid medication. No new medical complaints. Sleep: 3.25+ hours per staff, patient reports 5-6 Appetite: "Good." Suicidal and homicidal ideation: Denies Auditory hallucinations/Visual hallucinations: Denies Other Psychotic Symptoms: N/A Anxiety: Denies Depression: Regarding daughter/grandchildren, good mood otherwise. Current Medications Current Medications Aripiprazole 20 mg DAILY PO Last administered on 03/20/16t 07:58; Admin Dose 20 MG; Start 03/19/16 at 08:30 Mental Status Exam Appearance: Neat/well groomed Attitude: Pleasant, Cooperative Behavior: No unusual behavior Affect: Well Modulated/Appropriate Mood: Anxious (mild) Thought Process/Associations: Logical/Sequential, Goal Directed Speech Production: Normal Speech Rate: Normal Speech Articulation: Normal Thought Content: Appropriate Danger to Self/Suicidal Ideati: None Danger to Others: None Hallucinations: Auditory (Denies), Visual (Denies) Consciousness: Alert Orientation: Person, Place, Date, Situation Memory: Grossly Intact Estimate Intellectual Function: Average Attention/Concentration & Cogn: Grossly Intact Insight: Good Judgement: Limited (but improving) Result Diagram: 03/17/16 0800 03/17/16 0800 Mental Health Plan The patient is a 55-year-old white female with a history of severe bipolar mood disorder with psychosis. She has been admitted to multiple inpatient psychiatric hospitals throughout the state over the past 15 years. When she takes her routine psychiatric medications medications she tends to do well in the community. She apparently had been off medications for an unclear amount of time and had developed a manic episode. Historically, when manic, she tends to have a hyperreligious, hypersexual focus with paranoia and extreme irritability. She tends to threaten other people. Her current admission appears to be consistent with this pattern. The patient appears to be responding well to aripiprazole and we again discussed the use of Abilify Maintena. The patient is agreeable to staying on Depakote while she stabilizes on aripiprazole. The patient appears to be tolerating the switch to as needed formulation for clonazepam and has requested that it be discontinued today and only use as needed lorazepam. The patient reports better sleep than documented. Per Dr. Benoit, will not change Synthroid at this time. [place] AXIS I 1. Bipolar mood disorder, manic with psychotic features. 2. Posttraumatic stress disorder. 3. History of polysubstance abuse. AXIS II Defer. AXIS III 1. Hypertension. 2. Insulin-dependent diabetes mellitus. 3. Hypothyroidism. 4. Obesity. AXIS IV severe with poor coping skills, recent family discord, poor coping skills AXIS V Current global assessment of functioning equal to 40. Medications Depakote ER 1000 mg at night Aripiprazole 20 mg daily Klonopin 1 mg at bedtime with 1mg q6hr prn Treatments 1. The patient is encouraged to participate with group and milieu therapy. 2. The patient is encouraged to continue medications as prescribed. 3. The patient will meet with the treatment team on a daily basis to assess symptoms, side effects, and response to treatment. 4. Continue aripiprazole 20 mg daily 5. Continue Depakote ER 1000 mg at bedtime. 6. Thorazine 100 mg for agitation with override. 7. Discontinue clonazepam. 8. Referred to podiatry, appreciate recommendations. 9. Consider long-acting injectable medication to assist with medication adherence in the community. 10. No change in Synthroid recommended per Dr. Benoit. 11. Anticipated discharge by end of week on less restrictive order. Jez Stephens MD Mar 20, 2016 20:15
[2016-03-20] MEDS: Divalproex (QD) 500 mg ER24 Tablet PO SCH (21:49)
[2016-03-20] MEDS: LORazepam 1 mg Tablet PO PRN (21:58)
--- NOTE | 2016-03-20 23:17 | NUR ---
Nursing Note Maryellen- Pt up for most of shift socializing with peers, watching movies ect. Pt denied anxiety and depression and stated "I feel much better now but I am worried about my daughter". Pt cooperative with staff and was compliant with meds. Pt affect bright and talked about future plans upon DC. Q15 min safety checks per protocol, WC sleep, safety, behavior.
[2016-03-21] MEDS: diphenhydrAMINE 50 mg Capsule PO PRN ×2 (02:58→23:43)
[2016-03-21] MEDS: Magnesium Hydroxide 10 mL Oral Concentration PO PRN (04:05)
--- NOTE | 2016-03-21 06:47 | NUR ---
Nursing Noc s/o- has appeared to sleep after 2300 during q 15 minute assessments. a- no apparent distress. p- monitor behavior/emotional state, quality, times and amount of sleep, use and effect of medication.
[2016-03-21] MEDS: Pantoprazole 40 mg ER24 Tablet PO SCH (07:36)
[2016-03-21] MEDS: ARIPiprazole 10 mg Tablet PO SCH (08:12)
[2016-03-21 10:37] VITALS: BP 123/90; PULSE 80; RESP 16
--- NOTE | 2016-03-21 10:39 | NUR ---
Nursing Note [id number] Behavior, Mood S/O: Pt has good appetite. VS stable. Pt tearful this am stating, "I believe my daughter is using meth again....She's been kicked out of our house....Now she's homeless." Pt rated depression at a "7" on a scale of 1-10/10 the worst. She denies anxiety or suicidal ideation. Pt has been out in milieu. Pleasant & cooperative. Pt attends groups & participates. Conversation tracking clear & organized with normal rate & rhythm. Pt took medications as ordered without problems. A: No psychotic sx noted at this time. P: Provide supportive environment. Monitor medications & effects.
--- NOTE | 2016-03-21 15:38 | NUR ---
Nurses Note PRN Patient c/o back/neck pain,received Ibuprofen 800mg,will assess response.
--- NOTE | 2016-03-21 18:26 | NUR ---
Observations [id number] Pt was asleep upon start of shift. Pt was in a pleasant mood, walking the halls for exercise and participating in group. She is excited about her discharge on as she has been here for almost a month. Pt is friendly with peers and staff, and appears to be more flexible then in previous days. She attends all meals, eating an average of 75%. Pt was observed every 15 minutes of shift as directed.
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
--- NOTE | 2016-03-21 19:50 | NUR ---
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 She denies S/I and H/I. She denies auditory and visual hallucinations. She states she's "getting worse being here." As per psychiatrist, patient may be ready for discharge by . A: Patient is cooperative, anxious, flat affect, limited insight, limited judgment. P: Follow care plan, coordinate out-patient providers.
[2016-03-21] MEDS: Divalproex (QD) 500 mg ER24 Tablet PO SCH (22:04)
[2016-03-21] MEDS: LORazepam 1 mg Tablet PO PRN (22:06)
--- NOTE | 2016-03-22 06:33 | NUR ---
Nursing Note 7p-7a Pt up in milieu socializing upon arrival to unit. Pt cooperative and polite with staff and compliant with meds. Pt tearful in evening before bed stating" My daughter is hooked on meth and Im scared she is going to ". Pt also c/t talk about current situation with . Therapeutic conversation held and encouraged pt to find a support group upon dc. Pt requested ativan PRN before bed. Q15 min safety checks done per protocol, [facility] sleep, safety,behavior
[2016-03-22] MEDS: Pantoprazole 40 mg ER24 Tablet PO SCH (07:24)
[2016-03-22] MEDS: ARIPiprazole 10 mg Tablet PO SCH (07:34)
--- NOTE | 2016-03-22 12:48 | NUR ---
Nursing Note [id number] Behavior S/O: Pt has good appetite. Tearful this am. Stated, "I have to call my cousin. He's dying. He has emphysema & is still smoking." Pt has been polite, pleasant, & cooperative. Pt is attending groups. Conversation tracking clear & organized with normal rate & rhythm. Pt out in milieu with peers. Attending groups. A: Pt improving. No psychotic sx noted. P: Provide supportive environment. Monitor medications & effects.
[2016-03-22 15:31] VITALS: BP 125/79; PULSE 76
--- NOTE | 2016-03-22 18:48 | NUR ---
[facility] Day Shift Pt affect and behavior mostly unchanged from previous shift. Pt maintained behavioral control throughout the shift. Pt affect appears mostly bright. Pt spends most of the shift pacing the unit, interacting with peers, and engaging in unit activities. Pt remains appropriate with staff and peers when active on the unit. Pt attended community meeting and all group activities throughout the shift. Pt attended all meals and ate approx 80-100% of all meals.
[2016-03-22] MEDS: diphenhydrAMINE 50 mg Capsule PO PRN (19:16)
--- NOTE | 2016-03-22 19:56 | PCM.PNPSY ---
Subjective Date of Service Mar 22, 2016 Subjective The patient reports that her itching is somewhat better today after discontinuing clonazepam but reports still having some after Depakote. We discussed using the long-acting injectable, but the patient is reluctant to have both oral and in injectable medications at the same time. We discussed the need to remain stable on that dose for 2 weeks before starting a long- acting injectable and the patient was agreeable. Her tremor also appears to be improved. The patient reports her sleep was disrupted by construction during the night about the unit (rather loud according to staff). No new medical complaints. Sleep: 5+ hours, "better." Appetite: "Okay." Suicidal and homicidal ideation: Denies Auditory hallucinations/Visual hallucinations: Denies Other Psychotic Symptoms: N/A Anxiety: Denies Depression: Only about daughter's recent relapse on methamphetamine. Mental Status Exam Vital Signs Vital Signs Date Time Temp Pulse Resp B/P Pulse Ox O2 Delivery O2 Flow Rate FiO2 03/22/16 15:31 76 125/79 Appearance: Neat/well groomed Attitude: Pleasant, Cooperative Behavior: No unusual behavior Affect: Well Modulated/Appropriate Mood: Anxious (mild) Thought Process/Associations: Logical/Sequential, Goal Directed Speech Production: Normal Speech Rate: Normal Speech Articulation: Normal Thought Content: Appropriate Danger to Self/Suicidal Ideati: None Danger to Others: None Hallucinations: Auditory (Denies), Visual (Denies) Consciousness: Alert Orientation: Person, Place, Date, Situation Memory: Grossly Intact Estimate Intellectual Function: Average Attention/Concentration & Cogn: Grossly Intact Insight: Good Judgement: Good Result Diagram: 03/17/16 0800 03/17/16 0800 Mental Health Plan The patient is a 55-year-old white female with a history of severe bipolar mood disorder with psychosis. She has been admitted to multiple inpatient psychiatric hospitals throughout the state over the past 15 years. When she takes her routine psychiatric medications medications she tends to do well in the community. She apparently had been off medications for an unclear amount of time and had developed a manic episode. Historically, when manic, she tends to have a hyperreligious, hypersexual focus with paranoia and extreme irritability. She tends to threaten other people. Her current admission appears to be consistent with this pattern. The patient appears to be responding well to aripiprazole and we again discussed the use of Abilify Maintena. The patient is agreeable to staying on Depakote while she stabilizes on aripiprazole, but we discussed lowering the dose somewhat due to mild itching associated with the medication. The patient declined hydroxyzine due to her concern around weight gain. The patient appears to be doing better now that clonazepam has been discontinued and this does actually appear to be a potential adverse drug reaction. The patient's outpatient team was supportive of the use of long-acting injectable Abilify. Per Dr. Benoit, will not change Synthroid at this time. [place] AXIS I 1. Bipolar mood disorder, manic with psychotic features. 2. Posttraumatic stress disorder. 3. History of polysubstance abuse. AXIS II Defer. AXIS III 1. Hypertension. 2. Insulin-dependent diabetes mellitus. 3. Hypothyroidism. 4. Obesity. AXIS IV severe with poor coping skills, recent family discord, poor coping skills AXIS V Current global assessment of functioning equal to 40. Medications Depakote ER 1000 mg at night Aripiprazole 20 mg daily Lorazepam 1-2 mg every 4 hours when necessary anxiety. Treatments 1. The patient is encouraged to participate with group and milieu therapy. 2. The patient is encouraged to continue medications as prescribed. 3. The patient will meet with the treatment team on a daily basis to assess symptoms, side effects, and response to treatment. 4. Continue aripiprazole 20 mg daily 5. Decrease Depakote ER to 750 mg at bedtime. 6. Thorazine 100 mg for agitation with override. 7. Consider Abilify Maintena when patient stable on oral medication as does not want to have both concomitantly. 8. Referred to podiatry, appreciate recommendations. 9. No change in Synthroid recommended per Dr. Benoit. 10. Anticipated discharge by end of week on less restrictive order. Jez Stephens MD Mar 22, 2016 19:56
[2016-03-22] MEDS ORDERED: Divalproex (QD) 250 mg ER24 Tablet PO SCH (21:00)
[2016-03-22] MEDS: LORazepam 1 mg Tablet PO PRN (22:35)
[2016-03-22] MEDS: Magnesium Hydroxide 10 mL Oral Concentration PO PRN (23:53)
[2016-03-23] MEDS: diphenhydrAMINE 50 mg Capsule PO PRN ×2 (01:23→12:55)
[2016-03-23] MEDS: LORazepam 1 mg Tablet PO PRN (03:10)
--- NOTE | 2016-03-23 06:10 | NUR ---
Nursing Note [id number] Pt up in milieu upon arrival to unit. Pt spent shift socializing with peers and participated in group activities. Pt affect bright with some anxiety r/t pending dc. Pt given multiple PRN's throughout the shift. Ativan 2mg given x2 on shift r/t anxiety and trouble sleeping. Motrin and tylenol given for neck and back pain and Benadryl given for continuing c/o rash like symptoms. Pt spent most of night restless and walking hallway and wanting to socialize with staff. Pt had noted sleep time from [id number] and has been up since. Q15 min safety checks done per protocol, Pt denied depression and SI. Pt stated "I think im having trouble sleeping because I am anxious about going home. WCTM sleep, behavior, safety
[2016-03-23] MEDS: ARIPiprazole 10 mg Tablet PO SCH (08:06)
[2016-03-23] MEDS: Pantoprazole 40 mg ER24 Tablet PO SCH (08:07)
--- NOTE | 2016-03-23 12:12 | PCM.DIMED ---
Discharge Instructions Date of Service Mar 23, 2016 Dates of Hospitalization Feb 22, 2016 at 20:24 Discharge Diagnosis Discharge Diagnosis AXIS I 1. Bipolar mood disorder, manic with psychotic features. 2. Posttraumatic stress disorder. 3. History of polysubstance abuse, in partial remission. AXIS II Defer. AXIS III 1. Hypertension. 2. Insulin-dependent diabetes mellitus. 3. Hypothyroidism. 4. Obesity. AXIS IV severe with poor coping skills, recent family discord. AXIS V Current global assessment of functioning equal to 45. Test Results CBC Test 03/17/16 08:00 White Blood Count 8.1th/mm3 (3.8-10.1) Red Blood Count 4.04mil/mm3 (3.90-5.20) Hemoglobin 11.9g/dL (12.0-15.6) Hematocrit 35.4% (35.0-46.0) Mean Corpuscular Volume 87.6fL (81-100) Mean Corpuscular Hemoglobin 29.5pg (27.0-35.0) Mean Corpuscular Hemoglobin Concent 33.6% (32.0-37.0) Red Cell Distribution Width 12.5% (12.3-15.4) Platelet Count 417bil/L (150-400) Neutrophils (%) (Auto) 49.6% (40-74) Lymphocytes (%) (Auto) 36.4% (14-46) Monocytes (%) (Auto) 6.9% (4-12) Eosinophils (%) (Auto) 6.8% (0-5) Basophils (%) (Auto) 0.2% (0-3) CMP Test 02/22/16 10:10 03/04/16 09:34 03/17/16 08:00 Hold Holguin Top Tube Received Hemoglobin A1c 6.3% Sodium Level 131mEq/L Potassium Level 5.5mEq/L Chloride Level 94mEq/L Carbon Dioxide Level 25mmol/L Blood Urea Nitrogen 8mg/dL Creatinine 0.61mg/dL Estimat Glomerular Filtration Rate 147mL/min Glucose Level 94mg/dL Calcium Level 8.8mg/dL Total Bilirubin 0.2mg/dL Aspartate Amino Transf (AST/SGOT) 15U/L Alanine Aminotransferase (ALT/SGPT) 16U/L Alkaline Phosphatase 65U/L Total Protein 6.7g/dL Albumin 4.2g/dL Triglycerides Level 97mg/dL Cholesterol Level 119mg/dL LDL Cholesterol, Calculated 42.600mg/dL VLDL Cholesterol 19.400mg/dL HDL Cholesterol 57mg/dL Cholesterol/HDL Ratio 2.09 Thyroid Stimulating Hormone (TSH) 0.104uIU/mL Free Thyroxine 1.92ng/dL Diet Diabetic Activity No restrictions Patient Instructions Should you have any thoughts of harming yourself or others, please call the crisis line, your provider, 911, or go to the nearest Emergency Department. Do not change or discontinue your medications without discussing with your provider. You have been given a prescription for 30 days supply of your medication When you have stabilized on your Abilify for two weeks, your outpatient provider can start the long acting version, Abilify Maintena Discuss with Dr. Benoit, any change to your thyroid medication. Follow-up plan Mental Health follow-up Intake on [address] Mental Health Prescriber Kacie Beyer CNP on 05/16/16 @ 10:[address], [place] [address] Primary Care: Dr. Gordo Benoit in 4-6 weeks Internal medicine [address] [place] [address] Jez Stephens MD Mar 23, 2016 12:11
[2016-03-23] MEDS ORDERED: LEVO200T6 PO (12:39)
[2016-03-23] MEDS ORDERED: LIP40 PO (12:39)
[2016-03-23] MEDS ORDERED: METF1000 PO (12:39)
[2016-03-23] MEDS ORDERED: GLIP10TA10 PO (12:39)
[2016-03-23] MEDS ORDERED: ALBU8.5H2 INHALATION (12:40)
[2016-03-23] MEDS ORDERED: LISI-571 PO (12:40)
[2016-03-23] MEDS ORDERED: IBUP400T22 PO (12:40)
[2016-03-23] MEDS ORDERED: ARIP10TA14 PO (12:40)
[2016-03-23] MEDS ORDERED: DIVA250T12 PO (12:40)
[2016-03-23] MEDS ORDERED: OMEP40CA36 PO (12:40)
[2016-03-23] MEDS ORDERED: diphenHYDramine PO (12:40)
--- NOTE | 2016-03-23 15:00 | NUR ---
Discharge Patient ambulated from unit, accompanied by daughter and staff. Patient alert and oriented, interacting appropriately with staff and peers, nutritional intake good, reporting decreased anxiety. Patient denies suicidal ideation, hallucinations and thoughts of self harm. Discharge instructions/medications reviewed with patient prior to discharge. All questions addressed. Patient belongings, discharge instructions, prescriptions and home medications in hand. Addendum: 03/23/16 at 1707 by BONG CUBA RN Patient called after discharge, requesting a prescription for Ativan. Dr Stephens has written a prescription. Message left on daughters cell phone to call the unit to get prescription.
[2016-03-23] MEDS ORDERED: LORA-303 PO (16:24)
--- NOTE | 2016-03-23 18:18 | NUR ---
Instrument Tester/Counselor: S: "I'm feeling a little nervous about getting out of here." O: Patient slept 3.25+ hours last night as per staff. She denies S/I and H/I. She denies auditory and visual hallucinations. She is going to be staying at her daughter's house for a week A: Patient is cooperative, anxious, bright affect, future oriented. P: Follow care plan, coordinate out-patient providers. Addendum: 03/23/16 at 1822 by [facility] Out-patient appointments: Marnada villar [facility], 03/28/16 at 10:00am and Kacie Beyer [facility], [facility], 05/16/16 at 10:00am.
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
== END 2016-03-23 15:00 | disposition home or self-care (01) | DRG 885 ==
LOC: SED 08:11 → MHC 20:24
PROVIDERS: ADMIT Psychiatry & Neurology Psychiatry; ATTEND Psychiatry & Neurology Psychiatry
DX: F31.2 Bipolar disorder, current episode manic severe with psychotic features (principal); I10 Essential (primary) hypertension; E11.9 Type 2 diabetes mellitus without complications; E03.9 Hypothyroidism, unspecified; F43.10 Post-traumatic stress disorder, unspecified; Z79.4 Long term (current) use of insulin; E66.9 Obesity, unspecified; Z68.32 Body mass index [BMI] 32.0-32.9, adult; L60.0 Ingrowing nail

== ENCOUNTER 2016-04-26 02:10 | Emergency (ER) | payer MEDICARE, MEDICAID ==
[~2016-04-26] VITALS: Ht 172.7 cm; Wt 97.7 kg
[~2016-04-26 02:10] MED LIST changes: +ARIP10TA14 PO; +DIVA250T12 PO; -HAL5 PO; -IBUP200C PO; +IBUP400T22 PO; -KLO1T PO; -LEVO25TA5 PO; -LITH300T PO; -LITH300T2 PO; +LORA-303 PO; -NIAC500T21 PO; -PRAZ1CAP PO
--- NOTE | 2016-04-26 02:19 | ED.REPORT ---
HPI-General Illness Date of Service Apr 26, 2016 ED Provider: Familia Jaramillo MD Pt is a 56 y.o. female with a hx of bipolar disorder, PTSD, and polysubstance abuse who presents to the ED via EMS c/o vomiting onset prior to arrival. Pt states that she was at [employer] and vomited twice after eating. She states that she was poisoned and that she was the only one who had ate steak at the restaurant the entire night. She reports associated nausea, abdominal pain, and diarrhea. When asked if she would like medication for her nausea she refuses, and says that she needs to stay in the hospital overnight. When asked what she would like done for her she states "whatever, you are the boss". Pt also adamantly denies having "psychological problems". Pt was recently detained and admitted to the hospital (02/22/16-03/23/16). Nursing Notes Stated Complaint: VOMITING Nursing Notes Reviewed: Yes Allergies: Coded Allergies: lamotrigine (Verified Allergy, Intermediate, skin rash, 12/01/14) Sulfa (Sulfonamide Antibiotics) (Verified Allergy, Unknown, 11/20/14) loxapine (Verified Allergy, Unknown, 11/20/14) zolpidem (Verified Allergy, Unknown, 11/20/14) Scheduled ([diphenHYDramine]) 25 MG CAPSULE 25 MG PO HS Aripiprazole (Abilify) 10 Mg Tablet 20 MG PO DAILY Atorvastatin (Lipitor) 40 Mg Tablet 40 MG PO DAILY Divalproex ER (Divalproex ER) 250 Mg Tab.er.24h 750 MG PO HS Glipizide (Glipizide) 10 Mg Tablet 10 MG PO BID Levothyroxine (Levothyroxine) 200 Mcg Tablet 200 MCG PO DAILY Lisinopril (Lisinopril) 5 Mg Tablet 5 MG PO DAILY Metformin (Glucophage) 1,000 Mg Tablet 1,000 MG PO BID Omeprazole (Omeprazole) 40 Mg Capsule.dr 40 MG PO DAILY Scheduled PRN ([diphenHYDramine]) 50 MG CAPSULE 50 MG PO Q6H PRN PRN For Itching Albuterol HFA (Proair HFA) 8.5 Gm Hfa.aer.ad 2 PUFFS INHALATION Q4H PRN PRN For Shortness of Breath Ibuprofen (Ibuprofen) 400 Mg Tablet 800 MG PO TID PRN PRN For Pain Lorazepam (Ativan) 1 Mg Tablet 1 MG PO BID PRN PRN For Anxiety or Agitation Ondansetron ODT (Ondansetron ODT) 8 Mg Tab.rapdis 8 MG PO QID PRN PRN For Nausea General Time Seen by MD: 02:18 Chief Complaint Vomiting Hx Obtained From: Patient Arrived By: Ambulance Sudden in Onset?: Yes Onset Occurred: Just prior to arrival Symptom Duration: Since onset Location: : Abdomen Quality: Painful Severity: Current: Mild Past Medical History Past Medical History Bipolar - admitted to [facility] in 2013 PTSD Hx of polysubstance abuse DM Hypothyroidism Past Surgical History none reported Family History Noncontributory Smoking History Unknown if Ever Smoker Social History Currently residing at [facility] Alcohol Use: Denies alcohol use Drug Use: THC Other Social History: Good social support Ambulatory Status Independent Review of Systems Full Review of Systems GI: Reports: Abdominal pain, Diarrhea, Nausea, Vomiting Complete sys rev & neg: except as marked. Physical Exam Vital Signs Vital Signs Date Time Temp Pulse Resp B/P Pulse Ox O2 Delivery O2 Flow Rate FiO2 04/26/16 02:22 36.7 78 18 134/73 96 Room Air Initial VS: Reviewed Extremities: Vascular intact, Neuro intact Skin: Warm, Dry, No cyanosis Neurologic: Alert General/Constitutional: Awake, Alert, No acute distress Behavior: Positive: Aggressive (Verbally), Uncooperative Appearance / Presentation: Positive: Obese Head / Eyes: Atraumatic, Normocephalic Respiratory / Chest: Atraumatic, Breath sounds NL, No respiratory distress Cardiovascular: Heart rate NL, Regular rhythm, Peripheral circulation NL Abdomen: No distention Psychiatric: Not suicidal, Not homicidal Abnormal Thinking / Perception: Positive: Delusions - paranoid Interpretation & Diagnostics Lab Results Interpretation Result Diagram: 04/26/16 0330 04/26/16 0330 Test 04/26/16 03:10 04/26/16 03:30 Urine Color Straw (YELLOW) Urine Appearance Clear (CLEAR,HAZY) Urine pH 6.5 (5.0-8.0) Urine Specific Brillion 1.010 (1.003-1.035) Urine Protein Negativemg/dL (NEG,TRACE) Urine Glucose (UA) Negativemg/dL (NEGATIVE) Urine Ketones Negativemg/dL (NEGATIVE) Urine Occult Blood Trace (NEGATIVE) Urine Nitrite Negative (NEGATIVE) Urine Bilirubin Negative (NEGATIVE) Urine Urobilinogen Normalmg/dL (NORMAL) Urine Leukocyte Esterase Negative (NEGATIVE) Urine RBC 0-2/hpf (0-2) Urine WBC 0-5/hpf (0-5) Urine Epithelial Cells Moderate/hpf (NONE-MOD) Urine Crystals None seen (NONE SEEN) Urine Bacteria None/hpf (NONE-FEW) Urine Hyaline Casts None/lpf (NONE) Urine Granular Casts None seen (NONE SEEN) Urine Waxy Casts None seen (NONE SEEN) Urine Red Blood Cell Casts None seen (NONE SEEN) Urine White Blood Cell Casts None seen (NONE SEEN) Urine Mucus None seen (None Seen) Urine Trichomonas None seen (NONE SEEN) Urine Yeast None (NONE SEEN) Urinalysis Comment None Urine Culture Reflexed Not indicated White Blood Count 11.9th/mm3 (3.8-10.1) Red Blood Count 4.44mil/mm3 (3.90-5.20) Hemoglobin 12.8g/dL (12.0-15.6) Hematocrit 37.2% (35.0-46.0) Mean Corpuscular Volume 83.8fL (81-100) Mean Corpuscular Hemoglobin 28.8pg (27.0-35.0) Mean Corpuscular Hemoglobin Concent 34.4% (32.0-37.0) Red Cell Distribution Width 12.9% (12.3-15.4) Platelet Count 442bil/L (150-400) Neutrophils (%) (Auto) 77.1% (40-74) Lymphocytes (%) (Auto) 14.4% (14-46) Monocytes (%) (Auto) 4.9% (4-12) Eosinophils (%) (Auto) 3.0% (0-5) Basophils (%) (Auto) 0.3% (0-3) Prothrombin Time 9.3sec (8.1-12.5) Prothromb Time International Ratio 0.87ratio Sodium Level 127mEq/L (134-144) Potassium Level 4.4mEq/L (3.5-5.2) Chloride Level 93mEq/L (97-108) Carbon Dioxide Level 18mmol/L (18-29) Blood Urea Nitrogen 11mg/dL (6-24) Creatinine 0.53mg/dL (0.57-1.00) Estimat Glomerular Filtration Rate 172mL/min (>59) Glucose Level 217mg/dL (60-99) Calcium Level 8.3mg/dL (8.5-10.1) Magnesium Level 1.8mg/dL (1.6-2.6) Total Bilirubin 0.2mg/dL (0.0-1.2) Aspartate Amino Transf (AST/SGOT) 18U/L (0-50) Alanine Aminotransferase (ALT/SGPT) 17U/L (0-32) Alkaline Phosphatase 82U/L (25-150) Total Protein 6.7g/dL (6.4-8.4) Albumin 4.0g/dL (3.4-5.0) Lipase 39U/L (13-60) Alcohols < 10mg/dL (0-10) ECG Interpretation Time: 04:28 Interpreted by: ED physician Normal ECG Interpretation: Normal ECG w/ rate of... (77), Normal rate, Normal sinus rhythm, No acute ischemic changes, Normal QRS, Normal axis, Normal intervals Re-Eval/Medical Decision Med Decision/Clinical Course 56-year-old apparently homeless labile manic and overtly paranoid female presents allegedly vomiting after eating steak at a local restaurant. She initially refuses all care, and when asked why she came in, she says she needs to stay tonight. When she was advised that we either need to treat her for her complaints or she would be discharged, she agreed to blood work and some therapy for her nausea. She remains bizarre and inappropriate throughout, but completely denies suicidality or homicidality. She is evasive on the subject of where she came from or where she has to stay at this point. She has been emotionally labile and easily angered, but not physically aggressive here. She has a history of that with staff in this hospital. She denies ever having been in this hospital, but has had multiple psych admissions. At this point, her labs are unremarkable. She has refused physical exam but is in no obvious distress walking about without difficulty and showing no evidence of pain. She stated initially that she was better but did not want to be discharged. She then stated she vomited again without evidence of that. An attempt to discharge her with Zofran for home use as been initially unsuccessful. She is signed out at [address] Thornton. Suspect she will require social media developer intervention for disposition. Source of Hx: Old records Counseled Regarding: Diagnosis Discharge & Departure Shift Change Sign-Out Patient Care Transferred: Yes (Dr. Thornton) Discussed Complaint(s): Yes Laboratory Evaluation: Lab evaluation discussed Response to Therapy: Improved Primary Impression: Paranoia (psychosis) Additional Impressions: Bipolar disorder with severe yahaira Vomiting Vomiting type: unspecified Vomiting Intractability: non-intractable Nausea presence: with nausea Qualified Code: R11.2 - Nausea with vomiting, unspecified Referrals: Gordo Benoit MD (PCP) Care Transferred to: Dr. Thornton Care Transferred at: 06:00 Scribe Attestation Portions of this note were transcribed by Karen Sawyer. I, Dr. Jaramillo personally performed the history, physical exam and medical decision-making; I reviewed and confirmed the accuracy of the information in the transcribed note. Signed by: Charli Lopez, 04/26/16 and 0545. copies to: Gordo Benoit MD, Christopher W MD Apr 26, 2016 02:19 KAREN SAWYER Apr 26, 2016 02:28
[2016-04-26 02:22] VITALS: BP 134/73; PULSE 78; RESP 18; O2SAT 96
[2016-04-26] MEDS ORDERED: 0.9% Sodium Chloride 1,000 ML IV ONE (02:24)
[2016-04-26] MEDS ORDERED: Ondansetron 2 mg/mL 2 mL Inj IVPUSH ONE ×2 (02:25→07:45)
[2016-04-26] MEDS ORDERED: Pantoprazole 4 mg/mL 10 mL Inj IVPUSH ONE (02:25)
[2016-04-26 03:19] LABS: APPEARANCE,URINE CLEAR (CLEAR,HAZY); COLOR,URINE STRAW (YELLOW); PH,URINE 6.5 (5.0-8.0)
[2016-04-26 03:20] LABS: OCCULT BLOOD,URINE TRACE (NEGATIVE); UROBILINOGEN,URINE NORMAL (NORMAL)
[2016-04-26 03:46] LABS: BASOPHILS % (AUTO) 0.3 % (0-3); MONOCYTES % (AUTO) 4.9 % (4-12); Mean Corpuscular Hemoglobin 28.8 pg (27.0-35.0); Mean Corpuscular Volume 83.8 fL (81-100); NEUTROPHILS % (AUTO) 77.1 % (40-74); Platelet Count 442 bil/L (150-400)
[2016-04-26 04:00] LABS: INR 0.87 ratio
[2016-04-26 04:09] LABS: Magnesium 1.8 mg/dL (1.6-2.6)
[2016-04-26] MEDS ORDERED: ONDA8TAB10 PO (06:05)
[2016-04-26] MEDS ORDERED: Ondansetron 2 mg/mL 2 mL Inj ONE (07:40)
[2016-04-26 07:59] VITALS: BP 143/96; PULSE 80; RESP 16; O2SAT 97
== END 2016-04-26 08:01 | disposition home or self-care (01) ==
LOC: EDUNIT# 02:10 → EDBD 02:10 → SED 02:10
DX: F31.2 Bipolar disorder, current episode manic severe with psychotic features (principal); R11.2 Nausea with vomiting, unspecified; E11.9 Type 2 diabetes mellitus without complications; Z88.2 Allergy status to sulfonamides; Z88.8 Allergy status to other drugs, medicaments and biological substances; Z79.84 Long term (current) use of oral hypoglycemic drugs
CPT/HCPCS: 36415; 51702; 80053; 81000; 81002; 83690; 83735; 85025; 85610; 93005; 96361; 96374; 96375; 96376; 99285; G0480; J2405; J7030

== ENCOUNTER 2016-05-01 15:16 | Inpatient (IN) | payer MEDICARE, MEDICAID, OTHER ==
[~2016-05-01 15:16] MED LIST changes: +ONDA8TAB10 PO
[2016-05-01 15:27] VITALS: BP 152/89; PULSE 84; RESP 16; O2SAT 96
[2016-05-01 16:00] LABS: BASOPHILS % (AUTO) 0.3 % (0-3); MONOCYTES % (AUTO) 6.5 % (4-12); Mean Corpuscular Hemoglobin 28.5 pg (27.0-35.0); Mean Corpuscular Volume 84.8 fL (81-100); NEUTROPHILS % (AUTO) 63.3 % (40-74); Platelet Count 445 bil/L (150-400)
--- NOTE | 2016-05-01 16:28 | ED.REPORT ---
HPI-Psychiatric Illness Date of Service May 01, 2016 ED Provider: Edu Ron MD The patient is a 56 year old female with history of bipolar disorder, PTSD, and polysubstance abuse, who presents to the emergency department from [facility] for revocation of a LRO. [place] [facility] called and said the patient is manic and needs to be medically cleared for psychiatric hospitalization. She reports that the patient's behavior can escalate quickly. The patient is refuses to answer any questions and states, "just talk to my remarketing manager, my team of remarketing manager, they will be here tomorrow." She denies any physical complaints. She is unwilling to cooperate with exam. Nursing Notes Stated Complaint: MENTAL HEALTH Chief Complaint: Psychiatric Complaint Nursing Notes Reviewed: Yes Allergies: Coded Allergies: lamotrigine (Verified Allergy, Intermediate, skin rash, 12/01/14) Sulfa (Sulfonamide Antibiotics) (Verified Allergy, Unknown, 11/20/14) loxapine (Verified Allergy, Unknown, 11/20/14) zolpidem (Verified Allergy, Unknown, 11/20/14) Scheduled ([diphenHYDramine]) 25 MG CAPSULE 25 MG PO HS Aripiprazole (Abilify) 10 Mg Tablet 20 MG PO DAILY Atorvastatin (Lipitor) 40 Mg Tablet 40 MG PO DAILY Divalproex ER (Divalproex ER) 250 Mg Tab.er.24h 750 MG PO HS Glipizide (Glipizide) 10 Mg Tablet 10 MG PO BID Levothyroxine (Levothyroxine) 200 Mcg Tablet 200 MCG PO DAILY Lisinopril (Lisinopril) 5 Mg Tablet 5 MG PO DAILY Metformin (Glucophage) 1,000 Mg Tablet 1,000 MG PO BID Omeprazole (Omeprazole) 40 Mg Capsule.dr 40 MG PO DAILY Scheduled PRN ([diphenHYDramine]) 50 MG CAPSULE 50 MG PO Q6H PRN PRN For Itching Albuterol HFA (Proair HFA) 8.5 Gm Hfa.aer.ad 2 PUFFS INHALATION Q4H PRN PRN For Shortness of Breath Ibuprofen (Ibuprofen) 400 Mg Tablet 800 MG PO TID PRN PRN For Pain Lorazepam (Ativan) 1 Mg Tablet 1 MG PO BID PRN PRN For Anxiety or Agitation Ondansetron ODT (Ondansetron ODT) 8 Mg Tab.rapdis 8 MG PO QID PRN PRN For Nausea General Time Seen by MD: 16:07 Chief Complaint Manic Hx Obtained From: Patient, EMS Onset Occurred: Onset unknown Symptom Duration: Duration unknown Severity: Current: No pain currently Severity: Maximum: No pain Similar Sx Previous: Yes Risk-Psychiatric Illness Suicide Risk Stratification RF Statements: Risk factors reviewed Past Medical History Past Medical History Bipolar - admitted to [facility] in 2012 PTSD Hx of polysubstance abuse DM Hypothyroidism Past Surgical History none reported Family History Noncontributory Smoking History Unknown if Ever Smoker Social History Currently residing at [facility] Alcohol Use: Denies alcohol use Drug Use: THC Other Social History: Good social support, Local resident Ambulatory Status Independent Review of Systems Unable to Obtain ROS Patient condition, Uncooperative, Mental status Psychiatric: Reports: Change mental status, Hostile, Unable to control self Physical Exam Patient refuses examination. Initial Vital Signs Vital Signs (First) Date Time Temp Pulse Resp B/P Pulse Ox O2 Delivery O2 Flow Rate FiO2 05/01/16 15:27 36.9 84 16 152/89 96 Room Air Initial VS: Reviewed Head / Eyes: Atraumatic, Normocephalic Neck: Supple Respiratory: No respiratory distress Extremities: No swelling General/Constitutional: Awake, Alert Behavior: Positive: Uncooperative Neurologic: Speech NL, Gait NL Abnormal Mood/Affect: Positive: Pressured speech Abnormal Thinking / Perception: Positive: Tangential thinking Disorganized Interpretation & Diagnostics Interpretation & Diagnostics: UDS: negative Breathalyzer: 0 Lab Results Interpretation Result Diagram: 05/01/16 1548 05/01/16 1548 Test 05/01/16 15:45 05/01/16 15:48 Hold Urine Received (Received) White Blood Count 10.2th/mm3 (3.8-10.1) Red Blood Count 4.42mil/mm3 (3.90-5.20) Hemoglobin 12.6g/dL (12.0-15.6) Hematocrit 37.5% (35.0-46.0) Mean Corpuscular Volume 84.8fL (81-100) Mean Corpuscular Hemoglobin 28.5pg (27.0-35.0) Mean Corpuscular Hemoglobin Concent 33.6% (32.0-37.0) Red Cell Distribution Width 13.0% (12.3-15.4) Platelet Count 445bil/L (150-400) Neutrophils (%) (Auto) 63.3% (40-74) Lymphocytes (%) (Auto) 27.7% (14-46) Monocytes (%) (Auto) 6.5% (4-12) Eosinophils (%) (Auto) 2.0% (0-5) Basophils (%) (Auto) 0.3% (0-3) Sodium Level 127mEq/L (134-144) Potassium Level 4.1mEq/L (3.5-5.2) Chloride Level 90mEq/L (97-108) Carbon Dioxide Level 25mmol/L (18-29) Blood Urea Nitrogen 9mg/dL (6-24) Creatinine 0.55mg/dL (0.57-1.00) Estimat Glomerular Filtration Rate 165mL/min (>59) Glucose Level 162mg/dL (60-99) Calcium Level 9.0mg/dL (8.5-10.1) Total Bilirubin 0.3mg/dL (0.0-1.2) Aspartate Amino Transf (AST/SGOT) 17U/L (0-50) Alanine Aminotransferase (ALT/SGPT) 16U/L (0-32) Alkaline Phosphatase 74U/L (25-150) Total Protein 7.1g/dL (6.4-8.4) Albumin 4.6g/dL (3.4-5.0) Thyroid Stimulating Hormone (TSH) 1.780uIU/mL (0.450-4.500) Re-Eval/Medical Decision Med Decision/Clinical Course The patient is a 56 year old female with history of bipolar disorder, PTSD, and polysubstance abuse, who presents to the emergency department from [facility] for revocation of a LRO. [place] [facility] called and said the patient is manic and needs to be medically cleared for psychiatric hospitalization. She reports that the patient's behavior can escalate quickly. The patient is refuses to answer any questions and states, "just talk to my remarketing manager, my team of remarketing manager, they will be here tomorrow." She denies any physical complaints. She is unwilling to cooperate with exam. UDS: negative Breathalyzer: 0 CBC with borderline leukocytosis, otherwise unremarkable CMP with borderline hyponatremia with a sodium of 127, otherwise unremarkable Given the patient's clearly manic/disorganized behavior I attempted to have her take slightest ODT however she refused. She did agree to take lorazepam and was treated with 2 mg of oral lorazepam with good effect. Examination revealed no evidence of significant traumatic head injury. His presentation is similar to previous manic episodes and at this time I do not feel that any neuro imaging studies are indicated. I see no clear evidence suggestive of an organic etiology of the patient's presentation. Upon reexamination she is without any meningismus, fever or signs suggestive of meningitis or encephalitis. TSH is within normal limits. I see no evidence of significant toxic ingestion she denies suicidal or homicidal ideation. Patient was seen and evaluated by [facility] who recommended involuntary admission due to her acute disorganization. Patient was admitted to mental health unit for further management. She was transferred in stable condition. Source of Hx: Old records Consultation #1: Consulted With: easement worker Call Returned at: 16:32 Note: The patient has an LRO. The ED social staff worker will contact [facility] to have the patient evaluated for placement in the MHU. Consultation #2: Consulted With: Mental health Call Returned at: 19:30 Note: DM evaluated the patient. She will be admitted to the care center. Counseled Regarding: Diagnosis, Lab results, Need for admission Discharge & Departure Impression: Primary Impression: Psychosis Psychosis type: unspecified psychosis type Qualified Code: F29 - Unspecified psychosis not due to a substance or known physiological condition Additional Impressions: Cori Agitation )( Condition at Discharge: Clear for psych facility Disposition: ADMITTED TO HOSPITAL Discharge Condition All VS Reviewed: Yes Condition: Stable Referrals: Gordo Benoit MD (PCP) Charli Attestation Portions of this note were transcribed by Stacy Watkins. I, Dr. Ron personally performed the history, physical exam and medical decision-making; I reviewed and confirmed the accuracy of the information in the transcribed note. Signed by: Charli Cates, 05/01/2016 at 5710. copies to: Gordo Benoit MD, Beck O MD May 01, 2016 16:28 Stacy Watkins May 01, 2016 16:32
[2016-05-01] MEDS ORDERED: OLANZapine Zydis ODT 5 mg Tablet PO SCH (18:45)
[2016-05-01 18:51] VITALS: BP 136/81; PULSE 81; O2SAT 97
[2016-05-01] MEDS ORDERED: LORazepam 1 mg Tablet PO ONE ×2 (20:10→21:05)
[2016-05-01] MEDS ORDERED: diphenhydrAMINE 25 mg Capsule PO ONE (21:05)
[2016-05-01 21:55] VITALS: BP 144/90; PULSE 80; O2SAT 95
[2016-05-01 21:56] VITALS: BP 144/90; PULSE 80; RESP 16; O2SAT 95
[2016-05-01] MEDS ORDERED: Alum-Mag Hydrox-Simeth 30 mL Suspension PO PRN (22:35)
[2016-05-01] MEDS ORDERED: Albuterol HFA 60 Puff 8 Gm Inhaler INHALATION PRN (22:50)
[2016-05-01] MEDS ORDERED: Divalproex (QD) 250 mg ER24 Tablet PO SCH (23:00)
[2016-05-02] MEDS: Magnesium Hydroxide 10 mL Oral Concentration PO PRN (00:35)
[2016-05-02] MEDS: LORazepam 1 mg Tablet PO PRN (00:35)
--- NOTE | 2016-05-02 02:13 | NUR ---
Admission Note Pt is a 56 y/o white female well known to this facility. She is admitted on a revocation of an LRO for grave disability. Pt [facility] after being arrested for [place]. Per PACT CM she has been non- compliant with medications and has not kept appointments since discharge from [facility] on 03/23/16. In the ED she was placed in seclusion for attempting to elope. She was uncooperative with [facility] assessment, verbally threatened to him, You better watch your back, emotionally labile, loud and hostile. Pt released from seclusion prior to coming to floor, given Ativan 2mg po and Benadryl 25 mg in ED. Upon arrival to floor at 2215 pt was emotionally labile, pacing and unpredictable. Pt has a history of violence, and is currently homeless. BAL is 0, UDS negative, abnormal labs include NA+ 127 (L), Glucose 162, Plt Count 445 (H) & WBS 10.2 (H). BP 144/90 P. 108. Pt's medical issues include HTN, hypothyroidism, hyperlipidemia and Type II Diabetes. Pt unable to participate in admission assessment. Information obtained from previous admission, discharge summary and court documents. Pt oriented to room, given Ativan 1mg and went to bed at 0100.
--- NOTE | 2016-05-02 02:20 | NUR ---
Observations 1900 to 0700 Pt arrived on the floor form our ED at 22:15 and was unwilling to partake in a y of the intake process. Pt was up for awhile and a little disruptive as usual but not out of control. Pt was polite for the most part. Pt first appeared asleep at 01:00 and was observed every 15 minutes through the night as directed.
[2016-05-02] MEDS: diphenhydrAMINE 50 mg Capsule PO PRN (03:23)
[2016-05-02] MEDS: Pantoprazole 40 mg ER24 Tablet PO SCH (07:26)
[2016-05-02] MEDS: ARIPiprazole 10 mg Tablet PO SCH (07:42)
[2016-05-02 10:44] VITALS: BP 130/66; PULSE 90; RESP 16
--- NOTE | 2016-05-02 13:28 | NUR ---
Nursing Note [id number] Behavior S/O: Pt has good appetite. Blood sugar before breakfast was 119. VS stable. Pt seen by Jen Mejia from PACT team this morning. Pt appropriate during meeting. Pt has been loud & intrusive on unit-interrupting other people's conversation. She is easily irritated, but able to maintain positive attitude today. Pt confronted another pt who was agitated. Staff was able to redirect her before any behavior problems manifested. Pt has been cleaning unit most of the day. A: Pt appears manic. P: Provide supportive environment. Monitor medications & effects.
[2016-05-02] MEDS ORDERED: Albuterol HFA 60 Puff 8 Gm Inhaler INHALATION PRN (13:40)
[2016-05-02] MEDS ORDERED: Ondansetron 8 mg ODT Tablet PO PRN (13:40)
--- NOTE | 2016-05-02 15:22 | NUR ---
Buyer Planner./ c.m. S.:"I'm doing great! I'm finally my of 27 years! My team of scorer helper is working on that. They will take care of that." O.: met with pt. for initial interview. Pt. is [place] as a petition for revocation of 90 LRO. [facility] She is homeless. She was non-compliant with meds and outpatient treatment. She said that she didn't want anything to do with her c.m. from [facility]. She couldn't carry on a conversation. She believed that she had "a team of scorer helper" who would represent her in every case that she needs. She denied SI/HI, denied AH/VH, denied depression or anxiety. She was out of her room most of the time walking very fast in the lam or talking to peers. A.: pt. is cooperative, intrusive, paranoid, delusional, internally preoccupied and grandiose. She is easily agitated. P.: monitor behavior, provide safety in the unit, coordinate with outpatient providers, monitor meds intake; follow care plan.
--- NOTE | 2016-05-02 16:24 | HP ---
[address] [address] HISTORY AND PHYSICAL PATIENT: COLE REID : [id number] MR#: [id number] ADMIT: 05/01/2016 JOB ID: [id number] IDENTIFYING DATA: The patient is a 56-year-old female with a recent psychiatric hospitalization and a history of bipolar disorder, manic with psychotic features, posttraumatic stress disorder, and history of polysubstance abuse in partial remission, who is referred for revocation of a less restrictive order following failure to comply with her less restrictive order. CHIEF COMPLAINT: "You can ask my attorneys about any medication questions." HISTORY OF PRESENT ILLNESS: The patient was admitted to the [facility] on February 22, 2016, and discharged on March 23, 2016. She had been tried on a number of medications but stabilized on a combination of aripiprazole 20 mg daily and Depakote 750 mg. Although discussions had occurred with the patient about long-acting injectables, she was unwilling to start these medications in an inpatient setting. She did apparently agreed to start aripiprazole Maintena and was started on 400 mg on April 26, 2016. According to the designated mental health professional notes accompanying her, she stopped taking prescribed medications and decompensated. She reportedly stated she was "refusing managed medications" and informed them that she would not be observed for medications. She reportedly rapidly deteriorated. She was unwilling to work with the PACT team and so was referred for inpatient hospitalization and potential revocation. She reportedly has lost her housing and is currently homeless, although the details are not available. The patient initially was briefly cooperative but stated that she had taken her medications for two weeks after receiving the long-acting injectable although this is technically impossible, as the injectable was only six days ago. After denying acute issues, she refused to cooperate stating that she would only communicate through her attorneys. This behavior had been noted by the designated mental health professional who also noted that the patient had threatened the [facility], stating, "You better watch your back," and when she was asked whether she was making a threat, she stated, "You bet; the law, the [employer], the [place], the [employer], and the Marines will get you." "Also, the Mafia will be after you." "They are all on my side." PAST PSYCHIATRIC HISTORY: The patient has a history of multiple inpatient hospitalizations and this appears to be her 12th admission to the [facility] alone. She has also been hospitalized at [facility] and at [facility]. OUTPATIENT: She is being followed by the PACT team. CURRENT MEDICATIONS: 1. Oral aripiprazole 20 mg daily. 2. Abilify Maintena 400 mg monthly, most recently given on April 26, 2016. SUICIDE ATTEMPT HISTORY: Not known. FAMILY HISTORY: Not known. 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 She was living in a trailer on their property but appears to now be homeless. CURRENT MEDICAL PROBLEMS: Diabetes and hypothyroidism. She also reported having a bruise on her arm on admission. Otherwise, physical examination was unremarkable. CURRENT MEDICATIONS: 1. Lorazepam 1 mg twice daily as needed. 2. Abilify Maintena 400 mg IM monthly, 1st given April 26, 2016. 3. Aripiprazole 20 mg daily x14 days following injection, then discontinue. 4. Benadryl 25 mg at bedtime. 5. Lipitor 40 mg daily. 6. Glipizide 10 mg twice daily. 7. Metformin 1000 mg twice daily. 8. Levothyroxine 200 mcg daily. 9. ProAir 80 mcg metered dose inhaler as needed. 10. Lisinopril 5 mg daily. 11. Omeprazole 40 mg daily. 12. Ibuprofen 800 mg three times a day as needed. 13. She also uses Benadryl 50 mg as needed for itching. 14. Zofran for nausea. ALLERGIES: 1. LAMOTRIGINE. 2. SULFA. 3. LOXAPINE. 4. ZOLPIDEM. LABORATORY DATA: CBC within normal limits except for WBC of 10.2 and platelet of 445. Chem panel within normal limits except for a sodium of 127, chloride 90, creatinine 0.55, glucose 162. TSH 1.78. Urine drug screen was negative. SUBSTANCE ABUSE AND ALCOHOL HISTORY: The patient has a history of using marijuana infrequently, but other issues are not currently known. MENTAL STATUS EXAMINATION: Appearance: The patient is a wearing a T-shirt and exercise shorts and exercise shoes. Her hygiene is good. Behavior: The patient initially appears friendly and smiles but then appears irritated and paranoid as the interview progresses. She demonstrates no tremor or other abnormal movements. Mood: "Fine." Affect is irritable. Speech: Demonstrates poverty of speech but normal volume with a somewhat irritable tone. Content of thought: She denies suicidal or homicidal ideation or auditory or visual hallucinations, but does endorse paranoid and grandiose ideation as noted above. She denies any racing thoughts. Insight and judgment are both poor. Memory and concentration could not be readily assessed given poor cooperation. Intelligence: In the average range based upon history and vocabulary. Orientation: She was alert and oriented to person, place, and situation. Sensorium: Overall appeared intact without clear evidence of delirium or dementia. Impression: The patient is a 56-year-old female with a history of bipolar disorder who appears to have been medication nonadherent in the community and had a return of symptoms. She did take oral aripiprazole this morning and appears to be more organized and less hostile than as noted in the original reports. She is still only minimally cooperative with the assessment. PROVISIONAL DIAGNOSES: Dorothy I. Bipolar disorder, manic, with psychotic features, Posttraumatic stress disorder, History of polysubstance abuse, in partial remission. [place] II. Deferred. Dorothy III. Hypertension, insulin-dependent diabetes mellitus, hypothyroidism, and obesity. Dorothy IV. Unknown. Dorothy V. Current Global Assessment of Functioning is 25. PLAN: 1. The patient is admitted on an involuntary basis to the [facility]. 2. The patient will be seen by the treatment team on a daily basis to assess symptoms, side effects, and response to treatment. 3. The patient is currently denying active suicidality and does not appear to need a one-to-one at this time. 4. The patient is encouraged to participate in group and milieu activities. 5. The patient will be continued on aripiprazole 20 mg daily. 6. The patient will have lorazepam 1 mg q.4 h. as needed for anxiety or agitation. 7. Depakote will not be continued at this time as she appears to be re-stabilizing fairly quickly now that she is back on oral medication. 8. Diphenhydramine 25 mg nightly p.r.n. insomnia. 9. The patient's other medical medications will be continued. 10. Anticipated length of stay is 10-14 days. MTDD
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
[2016-05-02] MEDS: diphenhydrAMINE 25 mg Capsule PO SCH (20:38)
--- NOTE | 2016-05-03 01:10 | NUR ---
Observations 1900 to 0700 Pt has been displaying some manic behavior. Pt is very hypersexual. Pt was up for awhile and a little disruptive as usual but not out of control. Pt was polite for the most part. Pt first appeared asleep at 00:30 and was observed every 15 minutes through the night as directed.
[2016-05-03] MEDS: LORazepam 1 mg Tablet PO PRN (04:00)
--- NOTE | 2016-05-03 04:11 | NUR ---
Nursing Note [id number] Pt up in milieu upon arrival to unit. Pt exhibiting manic symptoms AEB pacing hallways, hyperverbal, loud speech. Pt easily irritated and shows little patience with peers and staff. 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 Pt compliant with meds although appearing paranoid asking to see package before dispensing. Noted sleep at 0030. Pt slept 2 hrs and is currently up in [facility]. PRN ativan 1mg and Ibuprofen 800mg requested. Q15 min safety checks done per protocol, [facility] sleep, safety, behavior
[2016-05-03] MEDS: Pantoprazole 40 mg ER24 Tablet PO SCH (06:48)
[2016-05-03] MEDS: ARIPiprazole 10 mg Tablet PO SCH (08:09)
[2016-05-03 10:25] VITALS: BP 146/88; PULSE 68; RESP 16
--- NOTE | 2016-05-03 14:09 | PCM.PNPSY ---
Subjective Date of Service May 03, 2016 Subjective The patient denied acute issues, but stated that she did not want to speak with the treatment team and instead preferred that we consult "her diamond cleaner" for any questions we may have. She did report having some itching and was advised to use the as needed diphenhydramine. The patient was intrusive with interactions with other patients. Following an interaction with a peer in the day room, the patient approached the treatment team and wrote "poison" and "pills" on a peace of paper and would not speak further for clarification other than to indicate that is what she thought of medications. Nursing is now reporting that she is refusing PRN medication for agitation. Sleep: Broken 3.5+ hours Appetite: eating. Suicidal and homicidal ideation: denies Auditory hallucinations/Visual hallucinations: unable to assess Other Psychotic Symptoms: paranoid and grandiose symptoms Anxiety/Depression: unable to assess Current Medications Current Medications Aripiprazole 20 mg DAILY PO Last administered on 05/03/16 08:09; Admin Dose 20 MG; Start 05/02/16 at 08:30 Atorvastatin Calcium 40 mg HS PO Last administered on 05/02/16 20:38; Admin Dose 40 MG; Start 05/02/16 at 21:00 Diphenhydramine HCl 25 mg HS PO Last administered on 05/02/16 20:38; Admin Dose 25 MG; Start 05/02/16 at 21:00 Diphenhydramine HCl 25 mg ONCE ONCE PO Last administered on 05/01/16 21:56; Admin Dose 25 MG; Start 05/01/16 at 21:05; Stop 05/01/16 at 21:07; Status DC Diphenhydramine HCl 50 mg Q6H PRN PO Last administered on 05/02/16 03:23; Admin Dose 50 MG; Start 05/01/16 at 22:50 Glipizide 10 mg BIDAC PO Last administered on 05/03/16 07:35; Admin Dose 10 MG ; Start 05/02/16 at 07:30 Ibuprofen 800 mg TID PRN PO Last administered on 05/03/16 04:00; Admin Dose 800 MG; Start 05/01/16 at 22:50 Levothyroxine Sodium 200 mcg DAILYAC PO Last administered on 05/03/16 07:34; Admin Dose 200 MCG; Start 05/02/16 at 07:30 Lisinopril 5 mg DAILY PO Last administered on 05/03/16 08:09; Admin Dose 5 MG; Start 05/02/16 at 08:30 Lorazepam 1 mg ONCE ONCE PO Last administered on 05/01/16 20:14; Admin Dose 1 MG; Start 05/01/16 at 20:10; Stop 05/01/16 at 20:11; Status DC Lorazepam 1 mg ONCE ONCE PO Last administered on 05/01/16 21:56; Admin Dose 1 MG; Start 05/01/16 at 21:05; Stop 05/01/16 at 21:07; Status DC Lorazepam 1 mg Q4H PRN PO Last administered on 05/03/16 04:00; Admin Dose 1 MG ; Start 05/01/16 at 22:35 Magnesium Hydroxide 10 ml Q12H PRN PO Last administered on 05/02/16 00:35; Admin Dose 10 ML; Start 05/01/16 at 22:35 Metformin HCl 1,000 mg 08,1730 PO Last administered on 05/03/16 08:09; Admin Dose 1,000 MG; Start 05/02/16 at 08:00 Pantoprazole 40 mg 0630 PO Last administered on 05/03/16 06:48; Admin Dose 40 MG; Start 05/02/16 at 06:30 Mental Status Exam Vital Signs Vital Signs Date Time Temp Pulse Resp B/P Pulse Ox O2 Delivery O2 Flow Rate FiO2 05/03/16 10:25 36.4 68 16 146/88 Appearance: Neat/well groomed Attitude: Guarded, Uncooperative, Hostile/Threatening Behavior: Other Affect: Labile Mood: Irritable Thought Process/Associations: Other (poverty of speech) Speech Production: Paucity, Other (irritable tone) Speech Rate: Normal Speech Articulation: Normal Thought Content: Perseveration, Erotomanic Danger to Self/Suicidal Ideati: None Danger to Others: None Delusions: Paranoid (Endorses), Grandiose (Endorses) Consciousness: Alert Orientation: Person, Place, Date Memory: Untestable Estimate Intellectual Function: Average Basis for IQ estimate: Awareness current events, Word use/vocabulary, Educational history, Employment history Attention/Concentration & Cogn: Impaired Insight: Limited Judgement: Poor Result Diagram: 05/01/16 1548 05/01/16 1548 Mental Health Plan The patient is a 56-year-old female with a history of bipolar disorder who appears to have been medication nonadherent in the community and had a return of symptoms. She is taking oral aripiprazole but refused Depakote. This morning she appeared paranoid but overall more organized and less hostile than as noted in the original reports. This afternoon, however, she is increasingly agitated and refusing oral PRN medication. She is still only minimally cooperative with the assessment. [place] Han[place] I. Bipolar disorder, manic, with psychotic features, Posttraumatic stress disorder, History of polysubstance abuse, in partial remission. [place] II. Deferred. [place] III. Hypertension, insulin-dependent diabetes mellitus, hypothyroidism, and obesity. [place] IV. Unknown. [place] V. Current Global Assessment of Functioning is 25. Medications Aripiprazole 20mg daily Abilify Maintena 400mg IM monthly, 1st dose on 04/26/16 Lorazepam 1mg po q 4 hours PRN anxiety or agitation Diphenhydramine 25mg po nightly PRN insomnia. Treatments 1. The patient is admitted on an involuntary basis to the [facility]. 2. The patient will be seen by the treatment team on a daily basis to assess symptoms, side effects, and response to treatment. 3. The patient is currently denying active suicidality and does not appear to need a one-to-one at this time. 4. The patient is encouraged to participate in group and milieu activities. 5. The patient will be continued on aripiprazole 20 mg daily. 6. Second opinion obtained for medication override. 7. Increase lorazepam to 2mg po q 4hour prn anxiety with IM backup. 8. Consider restart of Depakote. 9. Diphenhydramine 25 mg nightly p.r.n. insomnia. 10. The patient's other medical medications will be continued. 11. Anticipated length of stay is 10-14 days. Jez Stephens MD May 03, 2016 14:09 Jez Stephens MD May 03, 2016 14:09
[2016-05-03] MEDS: LORazepam 2 mg Tablet PO PRN ×2 (14:36→21:08)
--- NOTE | 2016-05-03 15:53 | NUR ---
Nursing Dayshift: S: You are the ugliest person alive." O: Patient very kind and sweet prior to lunch. After lunch patient's mood changed to belligerent and sarcastic. Made the above comment to this RN. Took off her shirt in the dining room wearing only a sports bra. Offered Ativan 2 mg PO which patient refused. Order received for Ativan 2 mg IM if PO refused. 2nd opinion obtained. Patient not resistant to go to her room and receive the Im Ativan 2 mg at 1437. In her room for half hour per staff request. Then out of the room in dining room prior to lying in her bed recently. Eating well at meals. A: Belligerent. Labile. Pressured at times. Very talkative on approach. P: CPOC. Monitor mood and behavior. Meds per orders.
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
--- NOTE | 2016-05-03 18:02 | NUR ---
Benefits Clerk/Counselor: S: "I don't want to talk to anyone, you can consult my production grip with any questions." O: Patient only slept 3.5+ hours last night as per staff. She denies S/I and H/I. She denies auditory and visual hallucinations. A: Patient is uncooperative, hostile, labile, irritable, erotomanic, paranoid, grandiose, limited insight, poor judgment. P: Follow your care plan, coordinate out-patient providers.
[2016-05-03] MEDS: diphenhydrAMINE 25 mg Capsule PO SCH (21:08)
[2016-05-04] MEDS: Benzocaine-Menthol Lozenge 2/Pkg PO PRN (03:32)
--- NOTE | 2016-05-04 05:17 | NUR ---
Nursing note [id number] Pt able to maintain behavior control for flora shift and was compliant with HS meds and requested Ativan 2mg r/t increasing irritation about housekeeping wanting to clean room. As the night progressed pt irritation, aggression and impatient behavior escalated. Pt c/t exhibit manic behaviors. Mood labile with bouts of verbal aggression and abuse towards staff and peers and then crying about trauma from the past. Behaviors uncooperative at times and hard to redirect. Pt requested Ibuprofen 800mg for back and hip pain. Pt had a total of three hr broken sleep. Q15 min safety checks done per protocol, [facility] sleep, safety, behavior
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
[2016-05-04] MEDS: ARIPiprazole 10 mg Tablet PO SCH (07:35)
[2016-05-04] MEDS: Pantoprazole 40 mg ER24 Tablet PO SCH (07:36)
[2016-05-04 07:55] VITALS: BP 135/84; PULSE 77; RESP 16
[2016-05-04] MEDS: diphenhydrAMINE 50 mg Capsule PO PRN (09:10)
[2016-05-04] MEDS: LORazepam 2 mg Tablet PO PRN ×2 (09:10→15:43)
[2016-05-04] MEDS: LORazepam 1 mg Tablet PO SCH ×2 (10:00→14:11)
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
--- NOTE | 2016-05-04 14:31 | PCM.PNPSY ---
Subjective Date of Service May 04, 2016 Subjective Patient irritable and reluctant to talk to this provider. She was noted to be trying to overhear or observe the treatment team while on rounds. She denied racing thoughts. Patient again reported wouldhave team of internet and e business project manager tomorrow at hearing. Patient request an increase in Synthroid despite appropriate TSH and asked this auto service writer to call Dr. Benoit at [phone]. She also asked this auto service writer to call her previous provider Dr. Perez, but would not provide first name or phone number, "that's private!" Patient agreeable to scheduled lorazepam, but was angry about 2 weeks of aripiprazole as she stated that she had already had a week. Reminded patient that she didn't get injection until so that was not possible and then she stated that she got the injection elsewhere. Sleep: 2.5-3 hours per staff. "No, I got 8 hours." Appetite: "good" Suicidal and homicidal ideation: "I don't know why you keep asking, I would never do anything, I believe in Juan Miguel Ash my Savior." Auditory hallucinations/Visual hallucinations: denies Other Psychotic Symptoms: paranoia, grandiosity Anxiety: "a bit" particularly "when I'm talking to you." Depression: denies Current Medications Current Medications Atorvastatin Calcium 40 mg HS PO Last administered on 05/03/16 21:08; Admin Dose 40 MG; Start 05/02/16 at 21:00 Diphenhydramine HCl 25 mg HS PO Last administered on 05/03/16 21:08; Admin Dose 25 MG; Start 05/02/16 at 21:00 Lorazepam 2 mg Q4 PRN IM Last administered on 05/03/16 14:37; Admin Dose 2 MG ; Start 05/03/16 at 14:20 Lorazepam 2 mg Q4 PRN PO Last administered on 05/04/16 09:10; Admin Dose 2 MG ; Start 05/03/16 at 14:20 Mental Status Exam Vital Signs Vital Signs Date Time Temp Pulse Resp B/P Pulse Ox O2 Delivery O2 Flow Rate FiO2 05/04/16 07:55 35.9 77 16 135/84 Appearance: Neat/well groomed Attitude: Guarded, Uncooperative, Hostile/Threatening Behavior: Other Affect: Labile Mood: Irritable Thought Process/Associations: Goal Directed Speech Production: Normal, Other (irritable tone) Speech Rate: Normal Speech Articulation: Normal Thought Content: Perseveration, Erotomanic Danger to Self/Suicidal Ideati: None Danger to Others: None Delusions: Paranoid (Endorses), Grandiose (Endorses) Hallucinations: Auditory (Denies), Visual (Denies) Consciousness: Alert Orientation: Person, Place, Date Memory: Untestable Estimate Intellectual Function: Average Basis for IQ estimate: Awareness current events, Word use/vocabulary, Educational history, Employment history Attention/Concentration & Cogn: Impaired Insight: Limited Judgement: Poor Result Diagram: 05/01/16 1548 05/01/16 1548 Mental Health Plan The patient is a 56-year-old female with a history of bipolar disorder who appears to have been medication nonadherent in the community and had a return of symptoms. She is taking oral aripiprazole but refused Depakote. The patient is still quite irritable and grandiose and is willing to take oral aripiprazole only for 1 week. [place] I. Bipolar disorder, manic, with psychotic features, Posttraumatic stress disorder, History of polysubstance abuse, in partial remission. [place] II. Deferred. [place] III. Hypertension, insulin-dependent diabetes mellitus, hypothyroidism, and obesity. [place] IV. Unknown. [place] V. Current Global Assessment of Functioning is 25. Medications Aripiprazole 20mg daily Abilify Maintena 400mg IM monthly, 1st dose on 04/26/16 Lorazepam 1mg po q 4 hours PRN anxiety or agitation Diphenhydramine 25mg po nightly PRN insomnia. Treatments 1. The patient is admitted on an involuntary basis to the [facility]. 2. The patient will be seen by the treatment team on a daily basis to assess symptoms, side effects, and response to treatment. 3. The patient is currently denying active suicidality and does not appear to need a one-to-one at this time. 4. The patient is encouraged to participate in group and milieu activities. 5. The patient will be continued on aripiprazole 20 mg daily. 6. Second opinion obtained for medication override. 7. Schedule lorazepam 1mg daily and at 1430, and 2mg at bedtime and continue lorazepam 2mg po q 4hour prn anxiety with IM backup. 8. Consider restart of Depakote although patient currently declining. 9. Diphenhydramine 25 mg nightly p.r.n. insomnia. 10. The patient's other medical medications will be continued. 11. Anticipated length of stay is 10-14 days. Jez Stephens MD May 04, 2016 14:31
--- NOTE | 2016-05-04 15:44 | NUR ---
Nurses PRN Patient requested an Ativan and received a 2mg tab and signed she wanted this medication only before scheduled court in the am,will assess response.
--- NOTE | 2016-05-04 17:48 | NUR ---
Observations [id number] Pt was awake in the dining area upon start of shift. She continues to present with manic behaviors such as cleaning and pacing unit. Pt did not sleep much during the day, taking two naps for a total of about 2 hours. Pt continues to intimidate other patients at times, making very blunt statements. Pt was able to be redirected much better today then in previous days. She was not observed to have emotional outbursts as she did in previous shifts. Pt attended all meals, eating 100%. Pt did attend group, making a collage. She was observed every 15 minutes of shift as directed.
--- NOTE | 2016-05-04 18:50 | NUR ---
Hand Icer/Counselor: S: "I believe in the Lord Juan Miguel Aleman and I would never hurt myself." O: Patient only slept 2.5 hours last night as per staff. She denies S/I and H/I. She denies auditory and visual hallucinations. Depression is 0/10 and anxiety is "a little bit." A: Patient is uncooperative, hostile, labile, irritable, erotomanic, paranoid, grandiose, limited insight, poor judgment. P: Follow your care plan, coordinate out-patient providers.
[2016-05-04] MEDS: diphenhydrAMINE 25 mg Capsule PO SCH (20:55)
[2016-05-04] MEDS: LORazepam 2 mg Tablet PO SCH (20:55)
--- NOTE | 2016-05-04 21:05 | NUR ---
Nurses Note Evening Patient signed court paperwork to accept Ativan before scheduled court in the am. Patient received HS dose of Ativan 2mg along with a PRN Ativan 2mg at 1543. Patients' mood has been irritable,behavior restless,speech pressured and loud. Patient has been less hostile to peers than yesterday not requiring redirection or limit setting. Will continue to maintain q 15min.checks for safety and support. Addendum: 05/04/16 at 2111 by SUZETTE VALDES RN Amended: Links added.
[2016-05-05] MEDS: LORazepam 2 mg Tablet PO PRN (01:30)
--- NOTE | 2016-05-05 05:29 | NUR ---
Nursing Noc Pt slightly irritable and intrusive with staff and patients. Requested PRNs through the night for anxiety and sleep assist. Reports Ambien will cause her to sleep walk but esta works well. Pt up and down all night getting PRN or requesting snacks. Pt to have court Sunday. Continuing to monitor mood behavior, emotional state by Q15 minute safety checks. CP
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
[2016-05-05] MEDS: Pantoprazole 40 mg ER24 Tablet PO SCH (07:52)
[2016-05-05] MEDS: LORazepam 1 mg Tablet PO SCH ×3 (08:30→14:23)
[2016-05-05 09:00] VITALS: BP 119/85; PULSE 67; RESP 16
[2016-05-05] MEDS: ARIPiprazole 10 mg Tablet PO SCH (11:13)
--- NOTE | 2016-05-05 12:14 | NUR ---
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 Clear and linear speech Pt. has participated with group and interacting with staff and other patients. A: Pt appears well kept today. Pt is restless, ambulating in the halls, often times interjecting into other patients conversations. Pt often would stand at the desk station and stare in at the nursing staff. P: Monitor for safety and response to treatment. Follow plan of care for safety/response to treatment. Follow
--- NOTE | 2016-05-05 14:53 | PCM.PNPSY ---
Subjective Date of Service May 05, 2016 Subjective The patient was more friendly today but had limited interaction. She stated "I do not have time to talk to you I am working on Court." She did later agree to stay in the hospital on a less restrictive order with inpatient time in order to restabilize. She denied any side effects from medications. Sleep: 3+ hours per staff. Real good, about 8 hours." Appetite: "good" Suicidal and homicidal ideation: Denies Auditory hallucinations/Visual hallucinations: denies Other Psychotic Symptoms: paranoia, grandiosity Anxiety: Denies Depression: denies Current Medications Current Medications Lorazepam 2 mg HS PO Last administered on 05/04/16t 20:55; Admin Dose 2 MG; Start 05/04/16 at 21:00 Mental Status Exam Appearance: Neat/well groomed Attitude: Guarded, Uncooperative Behavior: Other (irritable but more cooperative) Affect: Restricted Mood: Irritable Thought Process/Associations: Goal Directed Speech Production: Normal Speech Rate: Normal Speech Articulation: Normal Thought Content: Perseveration Danger to Self/Suicidal Ideati: None Danger to Others: None Delusions: Paranoid (Endorses), Grandiose (Endorses) Hallucinations: Auditory (Denies), Visual (Denies) Consciousness: Alert Orientation: Person, Place, Date Memory: Untestable Estimate Intellectual Function: Average Basis for IQ estimate: Awareness current events, Word use/vocabulary, Educational history, Employment history Attention/Concentration & Cogn: Impaired Insight: Limited Judgement: Poor Result Diagram: 05/01/16 1548 05/01/16 1548 Mental Health Plan The patient is a 56-year-old female with a history of bipolar disorder who appears to have been medication nonadherent in the community and had a return of symptoms. She is taking oral aripiprazole but refused Depakote. The patient appears less irritable today and agreed to stay in the hospital for further stabilization. [place] I. Bipolar disorder, manic, with psychotic features, Posttraumatic stress disorder, History of polysubstance abuse, in partial remission. [place] II. Deferred. [place] III. Hypertension, insulin-dependent diabetes mellitus, hypothyroidism, and obesity. [place] IV. Unknown. [place] V. Current Global Assessment of Functioning is 25. Medications Aripiprazole 20mg daily Abilify Maintena 400mg IM monthly, 1st dose on 04/26/16 Lorazepam 1mg po q 4 hours PRN anxiety or agitation Diphenhydramine 25mg po nightly PRN insomnia. Treatments 1. The patient is admitted on an involuntary basis to the [facility]. 2. The patient will be seen by the treatment team on a daily basis to assess symptoms, side effects, and response to treatment. 3. The patient is currently denying active suicidality and does not appear to need a one-to-one at this time. 4. The patient is encouraged to participate in group and milieu activities. 5. The patient will be continued on aripiprazole 20 mg daily. 6. Second opinion obtained for medication override. 7. Schedule lorazepam 1mg daily and at 1430, and 2mg at bedtime and continue lorazepam 2mg po q 4hour prn anxiety with IM backup. 8. Consider restart of Depakote although patient currently declining. 9. Diphenhydramine 25 mg nightly p.r.n. insomnia. 10. The patient's other medical medications will be continued. 11. Anticipated length of stay is 10-14 days. Jez Stephens MD May 05, 2016 14:53
--- NOTE | 2016-05-05 18:09 | NUR ---
[facility] Day Shift Pt maintained behavioral control throughout the shift. Pt affect appears bright in the AM, flatter as the shift progresses. Pt spends msot of the shift interacting with peers in the dining room, participating in unit activities, and pacing the unit. Pt is appropriate with staff and peers when active on the unit, but is occasionally intrusive. Pt initially friendly and bright in the AM, but becomes more reserved and isolative in the afternoon/evening. Pt attended community meeting in the AM and all group activities throughout the shift. Pt attended all meals and ate approx 80% of all meals.
--- NOTE | 2016-05-05 19:37 | NUR ---
Education Officer/Counselor: S/O: Patient only slept 3+ hours last night as per staff. She denies S/I and H/I. She denies auditory and visual hallucinations. Patient ended interview. A: Patient is uncooperative, guarded, irritable, paranoid, grandiose, limited insight, poor judgment. P: Follow your care plan, coordinate out-patient providers.
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
[2016-05-05] MEDS: LORazepam 2 mg Tablet PO SCH (22:23)
[2016-05-05] MEDS: diphenhydrAMINE 25 mg Capsule PO SCH (22:23)
[2016-05-06] MEDS: LORazepam 2 mg Tablet PO PRN ×3 (02:49→23:22)
--- NOTE | 2016-05-06 04:51 | NUR ---
Nursing note Noc Pt up and down throughout shift. Pt has maintained behavior control and has been superficially pleasant. PRN Ativan 2mg and Motrin 800mg given at 0230, 650mg given at 0430. Pt noted 2.5 hr broken sleep. Q15 min safety checks done per protocol, [facility] sleep, safety, behavior
[2016-05-06] MEDS: Pantoprazole 40 mg ER24 Tablet PO SCH (07:24)
[2016-05-06] MEDS: ARIPiprazole 10 mg Tablet PO SCH (07:25)
[2016-05-06] MEDS: LORazepam 1 mg Tablet PO SCH ×3 (07:26→15:16)
[2016-05-06 07:30] VITALS: BP 127/77; PULSE 75; RESP 16
[2016-05-06] MEDS: Magnesium Hydroxide 10 mL Oral Concentration PO PRN (10:56)
--- NOTE | 2016-05-06 11:37 | NUR ---
Nursing Day Shift- S- "I would do it if I wasn't tired. today I'm tired. I can do a better group then that. I'm just giving the forms analyst some advice. 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 had slept poorly during the shift superintendent and was awake at the start of the day shift. She was in the DR and could be overheard talking loudly with a peer. Pt. took her ordered AM medications and eat 100%. She appeared more angry, grandiose and paranoid then she had yesterday. Staff have maintained a presence in the DR or hallway while the Pt. is out of her room for unit safety. Pt. refused to meet with the MD. A- Increased irritability and paranoia since yesterday. Able to maintain on open unit thus far today. P- Cont. TP
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
--- NOTE | 2016-05-06 17:28 | NUR ---
Nursing Notes [id number] S: "I don't want to take that, I am too tired from the one I took earlier". "I have an district attorney, I am going to romana the S out of the hospital, and security and some of the nurses". O: Participating in groups. Patient refusing afternoon Ativan. A: Patient continues to be grandiose, delusional, unpredictable, sometimes initiates confrontation with other patients. P: Monitor for safety and response to treatment. Follow plan of care.
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
[2016-05-06] MEDS: Divalproex (QD) 250 mg ER24 Tablet PO SCH (20:53)
[2016-05-06] MEDS: diphenhydrAMINE 25 mg Capsule PO SCH (20:53)
[2016-05-06] MEDS: LORazepam 2 mg Tablet PO SCH (20:53)
--- NOTE | 2016-05-06 21:16 | NUR ---
OBSERVATIONS 0900 TO 2130 Pt has been antagonistic throughout the shift with staff as well as pts. Pt is entitled at times and gets upset when demands are not met. Pt was relatively easy to redirect which was needed frequently. Maintained Q15 safety checks as directed.
[2016-05-06] MEDS: diphenhydrAMINE 50 mg Capsule PO PRN (23:21)
--- NOTE | 2016-05-07 03:39 | NUR ---
Observations 1900 to 0700 Pt has been displaying some manic behavior. Pt is very hypersexual and very inappropriate on the floor at times through the night. Pt was up for awhile and a little disruptive as usual but not out of control. Pt was polite for the most part. Pt first appeared asleep at 22:30 and was observed every 15 minutes through the night as directed.
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
[2016-05-07] MEDS: LORazepam 1 mg Tablet PO SCH (07:31)
[2016-05-07] MEDS: ARIPiprazole 10 mg Tablet PO SCH (07:31)
[2016-05-07] MEDS: Pantoprazole 40 mg ER24 Tablet PO SCH (07:31)
[2016-05-07 08:17] VITALS: BP 121/68; PULSE 65; RESP 16
--- NOTE | 2016-05-07 09:44 | NUR ---
Global Regulatory Lead./ c.m. S.:"I'm very busy, I'm sleeping right now! My chimney supervisor brick will contact you." O.: met with pt. and MD together in pt.'s room. She was in bed resting with her eyes open. She didn't sleep well last night. She refused to talk to MD and made comments above in a way of excuse. She denied SI/HI. after that she turned her head away and stopped talking. She was in and out of her room early in the morning making demanding requests. A.: pt. is unpredictable, uncooperative, intrusive, confused, paranoid and delusional, grandiose, internally preoccupied. She is easily agitated. P.: monitor behavior, provide safety in the unit, monitor meds intake; follow care plan.
--- NOTE | 2016-05-07 10:02 | PCM.PNPSY ---
Subjective Date of Service May 07, 2016 Subjective The patient greeted this credit underwriter earlier during the day, curtly, and later when seen by the treatment team reported "I am very busy... I am sleeping right now. " She then later added "my homicide squad commanding officer will contact you... All my agent broker that is." Patient would not answer questions outside of safety issues. She does appear to have slept better and is somewhat less irritable. The patient did take Depakote at bedtime but refuses the 14:30 lorazepam yesterday. No side effects have been reported. Sleep: 5.75 hours broken Appetite: Eating appropriately Suicidal and homicidal ideation: Denies Auditory hallucinations: Refuses to answer Visual hallucinations: Refuses to answer Other Psychotic Symptoms: Grandiosity as noted above Anxiety: Refuses to answer Depression: Refuses to answer Current Medications Current Medications Divalproex Sodium 750 mg HS PO Last administered on 05/06/16t 20:53; Admin Dose 750 MG; Start 05/06/16 at 21:00 Mental Status Exam Appearance: Neat/well groomed Attitude: Guarded, Uncooperative Behavior: Other (irritable/angry) Affect: Restricted Mood: Irritable Thought Process/Associations: Goal Directed Speech Production: Normal Speech Rate: Normal Speech Articulation: Normal Thought Content: Perseveration Danger to Self/Suicidal Ideati: None Danger to Others: None Delusions: Paranoid (Endorses), Grandiose (Endorses) Hallucinations: Auditory (unable to assess), Visual (unable to assess) Consciousness: Alert Orientation: Person, Place, Situation Memory: Untestable Estimate Intellectual Function: Average Basis for IQ estimate: Awareness current events, Word use/vocabulary, Educational history, Employment history Attention/Concentration & Cogn: Impaired Insight: Limited Judgement: Poor Result Diagram: 05/01/16 1548 05/01/16 1548 Mental Health Plan The patient is a 56-year-old female with a history of bipolar disorder who appears to have been medication nonadherent in the community and had a return of symptoms. The patient did have a 400 mg Abilify Maintena injection on 2016. She is taking oral aripiprazole and had previously refused Depakote, but is now taking. The patient is still irritable and marginally cooperative but typically response to the addition of valproic acid. [place] I. Bipolar disorder, manic, with psychotic features, Posttraumatic stress disorder, History of polysubstance abuse, in partial remission. [place] II. Deferred. [place] III. Hypertension, insulin-dependent diabetes mellitus, hypothyroidism, and obesity. [place] IV. Unknown. [place] V. Current Global Assessment of Functioning is 25. Medications Aripiprazole 20mg daily Abilify Maintena 400mg IM monthly, 1st dose on 04/26/16 Depakote ER 750 mg at bedtime Lorazepam 1mg po q 4 hours PRN anxiety or agitation Diphenhydramine 25mg po nightly PRN insomnia. Treatments 1. The patient is admitted on an involuntary basis to the [facility]. 2. The patient will be seen by the treatment team on a daily basis to assess symptoms, side effects, and response to treatment. 3. The patient is currently denying active suicidality and does not appear to need a one-to-one at this time. 4. The patient is encouraged to participate in group and milieu activities. 5. The patient will be continued on aripiprazole 20 mg daily. 6. Second opinion obtained for medication override. 7. Schedule lorazepam 1mg daily and at 1430, and 2mg at bedtime and continue lorazepam 2mg po q 4hour prn anxiety with IM backup. 8. Depakote 750mg ER at bedtime. 9. Diphenhydramine 25 mg nightly p.r.n. insomnia. 10. The patient's other medical medications will be continued. 11. Anticipated length of stay is 10-14 days the patient is currently on a continuation of her less restrictive order with 14 additional inpatient days but this may need to be changed if the patient does not fully respond. Jez Stephens MD May 07, 2016 10:02
[2016-05-07] MEDS: Magnesium Hydroxide 10 mL Oral Concentration PO PRN (10:18)
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
[2016-05-07] MEDS: guaiFENesin DM 200-20 mg/10 mL Syrup PO PRN ×2 (15:56→21:51)
--- NOTE | 2016-05-07 18:09 | NUR ---
Observations 0900 to 1900 Pt affect and mood was manipulative, gamey, intrusive, paranoid, grandiose and internally preoccupied. Pt speech and eye contact was ok. Pt was in and out of her room, pacing hallway and staring into nurses station on occasion. Pt was unsocial with staff when approached, and is easily agitated. Pt continues to give short responses when approached. Pt attended meals in D.R. and ate approximately 75-80% of her meals. Pt maintained behavior but needs staff redirection. Pt took a shower and attended to ADL's. Pt attended exercise group. Pt worked on art project during group but stated that she just wasn't into it today. Pt was observed every 15 minutes throughout the shift as ordered.
[2016-05-07] MEDS: LORazepam 2 mg Tablet PO SCH (20:36)
[2016-05-07] MEDS: diphenhydrAMINE 25 mg Capsule PO SCH (20:36)
[2016-05-07] MEDS: Divalproex (QD) 250 mg ER24 Tablet PO SCH (20:37)
[2016-05-07] MEDS: LORazepam 2 mg Tablet PO PRN (21:51)
[2016-05-08] MEDS: LORazepam 2 mg Tablet PO PRN (02:41)
--- NOTE | 2016-05-08 04:36 | NUR ---
Nursing Noc Pt remains active and busy out in the milieu. Her speech and content can be aggressive & condescending towards certain individuals then superficially bright & friendly towards others. She attended wrap up group but became disruptive and attempted to take control & direct topic of conversation. Pt redirected by staff and was mildly responsive. Frequent redirection needed throughout the shift. She received all of her scheduled HS medication along w/ prn Ativan for anxiety and Guaifenesin for c/o cold symptoms. She has shown improved sleep patterns through the night. She slept from 6488-7015 then returned back to bed and appeared asleep again by 0245 with no further awakening per protocol checks. Total sleep over 6 hours.
--- NOTE | 2016-05-08 07:52 | NUR ---
Cake Cutter Machine./ c.m. S.:"I'm wonderful!" O.: met with pt. in the Dining room. She was sitting alone near TV. She slept "great" last night. She said that she was "sleeping great all nights". She denied SI/HI, denied AH/VH, denied depression. She described her mood as "excellent." She told card writer hand that her "team of internal control consultant will contact you very soon. They will talk to you if I need anything." A.: pt. is isolative, grandiose, unpredictable, internally preoccupied. P.: monitor behavior, provide safety in the unit, follow care plan.
[2016-05-08] MEDS: Pantoprazole 40 mg ER24 Tablet PO SCH (07:58)
[2016-05-08] MEDS: LORazepam 1 mg Tablet PO SCH ×2 (08:01→14:30)
[2016-05-08] MEDS: ARIPiprazole 10 mg Tablet PO SCH (08:56)
[2016-05-08] MEDS: Magnesium Hydroxide 10 mL Oral Concentration PO PRN (08:56)
[2016-05-08] MEDS: guaiFENesin DM 200-20 mg/10 mL Syrup PO PRN (09:10)
[2016-05-08 10:42] VITALS: BP 133/82; PULSE 70; RESP 17
--- NOTE | 2016-05-08 11:56 | PCM.PNPSY ---
Subjective Date of Service May 08, 2016 Subjective I spent 30 minutes both reviewing treatment regressed with the treatment team, interviewing the patient and providing supportive/educational psychotherapy. I spent less than 50% of the time counseling the patient the patient could only tolerate a brief interaction. I reviewed the treatment plan with the patient and discussed options available including the potential risks, benefits and side effects. Malu reports no difficulty with her thought organization or mood stability. " Everything is great, fabulous". Staff reports that she has been able to refrain from directly threatening anyone for the past 24 hours and that she has been medication compliant. On the unit she is very Active and has a difficult time participating in one-to- one unit and group activities as she gets so triggered by relatively normal social interactions. She slept 6.5 hours and denies yahaira or psychotic symptoms review. She denies medication side effects. Patient was able to identify her medications and what they were used to treat. Current Medications Current Medications Dexbrompheniramine/ Guaifenesin 10 ml Q6H PRN PO Last administered on 09:10; Admin Dose 10 ML; Start 05/07/16 at 13:30 Divalproex Sodium 750 mg HS PO Last administered on 05/07/16 20:37; Admin Dose 750 MG; Start 05/06/16 at 21:00 Mental Status Exam Vital Signs Vital Signs Date Time Temp Pulse Resp B/P Pulse Ox O2 Delivery O2 Flow Rate FiO2 05/08/16 10:42 36.7 70 17 133/82 Appearance: Neat/well groomed Attitude: Guarded, Uncooperative Behavior: Other (irritable/angry) Affect: Restricted Mood: Irritable Thought Process/Associations: Goal Directed Speech Production: Normal Speech Rate: Normal Speech Articulation: Normal Thought Content: Perseveration Danger to Self/Suicidal Ideati: None Danger to Others: None Delusions: Paranoid (Endorses), Grandiose (Endorses) Hallucinations: Auditory (unable to assess), Visual (unable to assess) Consciousness: Alert Orientation: Person, Place, Situation Memory: Untestable Estimate Intellectual Function: Average Basis for IQ estimate: Awareness current events, Word use/vocabulary, Educational history, Employment history Attention/Concentration & Cogn: Impaired Insight: Limited Judgement: Poor Mental Health Plan The patient is a 55-year-old white female with a history of severe bipolar mood disorder with psychosis. She has been admitted to multiple inpatient psychiatric hospitals throughout the state over the past 15 years. When she takes her medications, low-dose Klonopin, Haldol and lithium, she tends to do quite well. She apparently has been off medications for an unclear amount of time and has developed a full-blown yahaira. When she is manic, she tends to have a hyperreligious, hypersexual focus with paranoia and extreme irritability. She tends to threaten other people. This has been especially difficult for the people in her life including her and close friends. She has been trying to manage with outpatient services. However, has continued to decompensate since discharging from multiple different units. I am pleased she Agreed to a long-acting neuroleptic (Abilify). She is currently paranoid, quite pressured in her speech and refusing any psychotherapy. She is willing to take medications at this time. The patient did have a 400 mg Abilify Maintena injection on 04/26/2016. She is taking oral aripiprazole and had previously refused Depakote, but is now taking. The patient is still irritable and marginally cooperative but typically response to the addition of valproic acid. [place] I. Bipolar disorder, manic, with psychotic features, Posttraumatic stress disorder, History of polysubstance abuse, in partial remission. [place] II. Deferred. [place] III. Hypertension, insulin-dependent diabetes mellitus, hypothyroidism, and obesity. [place] IV. Unknown. [place] V. Current Global Assessment of Functioning is 30. Medications Aripiprazole 20mg daily Abilify Maintena 400mg IM monthly, 1st dose on 04/26/16 Depakote ER 750 mg at bedtime Lorazepam 1mg po q 4 hours PRN anxiety or agitation Diphenhydramine 25mg po nightly PRN insomnia. Treatments 1. The patient is admitted on an involuntary basis to the [facility]. 2. The patient will be seen by the treatment team on a daily basis to assess symptoms, side effects, and response to treatment. 3. The patient is currently denying active suicidality and does not appear to need a one-to-one at this time. 4. The patient is encouraged to participate in group and milieu activities. 5. The patient will be continued on aripiprazole 20 mg daily. 6. Second opinion obtained for medication override. 7. Schedule lorazepam 1mg daily and at 1430, and 2mg at bedtime and continue lorazepam 2mg po q 4hour prn anxiety with IM backup. 8. Depakote 750mg ER at bedtime. 9. Diphenhydramine 25 mg nightly p.r.n. insomnia. 10. The patient's other medical medications will be continued. 11. Anticipated length of stay is 10-14 days the patient is currently on a continuation of her less restrictive order with 14 additional inpatient days but this may need to be changed if the patient does not fully respond. Liam Dobbins MD May 08, 2016 11:55
--- NOTE | 2016-05-08 17:19 | NUR ---
Observations [id number] Pt was awake in the dining area upon start of shift. She attended group, going both outside and doing an exercise video. Pt spent much of her time walking the halls and in the dining area. She was not as social with peers or emotional as observed in previous days. Pt attended all meals, eating 100%. Pt presented as calm and was appropriate with other patients and staff. She followed direction regarding not bothering another patient on the unit. Pt was observed every 15 minutes of shift as directed.
--- NOTE | 2016-05-08 18:29 | NUR ---
Nursing: Day shift: S: I feel a little tired. O: Malu has been out on the open unit most of the day. She participated in community meeting and two group activities. She was neatly groomed, cooperative with limits set at beginning of shift to not pace in a certain lam area, and appropriate in any observed interactions with staff or peers. No statements indicating paranoid thinking noted. Took all medications as offered. PRN meds: MOM 10 ml and Robitussin 10 ml at 0915. A: No behavior dyscontrol this shift: P: Continue to observe for psych med effectiveness. Assess whether constipation still present after MOM. Addendum: 05/08/16 at 1841 by RENITA HARTMANN RN Amended: Links added.
[2016-05-08] MEDS: diphenhydrAMINE 25 mg Capsule PO SCH (20:06)
[2016-05-08] MEDS: Divalproex (QD) 250 mg ER24 Tablet PO SCH (20:06)
[2016-05-08] MEDS: LORazepam 2 mg Tablet PO SCH ×2 (20:20→20:46)
--- NOTE | 2016-05-08 22:04 | NUR ---
Nursing Noc Pt has shown improved mood and behavioral control this evening. She is still sexually preoccupied making sexual innuendos. She has maintained behavioral control with no outbursts. She has attended to her ADLs. She participated in evening group, snack and movie. Took scheduled medication without difficulty. She has remained calm and mostly appropriate this evening. Addendum: 05/09/16 at 0505 by AMY GREEN RN Pt requested and received Ativan 2mg po prn for felt anxiety. Will assess medication efficacy through the shift. Addendum: 05/09/16 at 0615 by AMY GREEN RN Medication helpful. Pt quietly listening to music until returning to her room and lying down to rest @ 0600. Total sleep 4.25 hours.
--- NOTE | 2016-05-09 02:55 | NUR ---
Observations 1900 to 0700 Pt has been displaying some manic behavior. Pt is still hypersexual but is improving and not as vulgar. Pt behavior is improved. Pt was polite for the most part. Pt first appeared asleep at 23:00 and was observed every 15 minutes through the night as directed.
[2016-05-09] MEDS: guaiFENesin DM 200-20 mg/10 mL Syrup PO PRN ×2 (04:29→17:26)
[2016-05-09] MEDS: LORazepam 2 mg Tablet PO PRN (05:01)
[2016-05-09] MEDS: ARIPiprazole 10 mg Tablet PO SCH (07:54)
[2016-05-09] MEDS: Pantoprazole 40 mg ER24 Tablet PO SCH (07:55)
[2016-05-09] MEDS: LORazepam 1 mg Tablet PO SCH ×2 (07:55→14:35)
[2016-05-09] MEDS: Magnesium Hydroxide 10 mL Oral Concentration PO PRN (08:17)
[2016-05-09 11:05] VITALS: BP 145/80; PULSE 69; RESP 17
--- NOTE | 2016-05-09 13:23 | PCM.PNPSY ---
Subjective Date of Service May 09, 2016 Subjective I spent 20 minutes both reviewing course with the treatment team, and interviewing the patient. The patient could only tolerate a brief interaction. I reviewed the treatment plan with the patient and discussed options available including the potential risks, benefits and side effects. Malu reports no difficulty with her thought organization or mood stability. "I am fine" Staff reports that she has been able to refrain from directly threatening anyone for the past 48 hours and that she has been medication compliant. She appears tense and as if working hard to maintain a pleasant demeanor. On the unit she has a difficult time participating in one-to-one unit and group activities as she gets so triggered by relatively normal social interactions. She slept 4.5 hours and denies yahaira or psychotic symptoms review. She denies medication side effects. Patient was able to identify her medications and what they were used to treat. Current Medications Current Medications Dexbrompheniramine/ Guaifenesin 10 ml Q6H PRN PO Last administered on t 04:29; Admin Dose 10 ML; Start 05/07/16 at 13:30 Mental Status Exam Vital Signs Vital Signs Date Time Temp Pulse Resp B/P Pulse Ox O2 Delivery O2 Flow Rate FiO2 05/09/16 11:05 36.6 69 17 145/80 Appearance: Neat/well groomed Attitude: Guarded, Uncooperative Behavior: Other (irritable/angry) Affect: Restricted Mood: Irritable Thought Process/Associations: Goal Directed Speech Production: Normal Speech Rate: Normal Speech Articulation: Normal Thought Content: Perseveration Danger to Self/Suicidal Ideati: None Danger to Others: None Delusions: Paranoid (Endorses), Grandiose (Endorses) Hallucinations: Auditory (unable to assess), Visual (unable to assess) Consciousness: Alert Orientation: Person, Place, Situation Memory: Untestable Estimate Intellectual Function: Average Basis for IQ estimate: Awareness current events, Word use/vocabulary, Educational history, Employment history Attention/Concentration & Cogn: Impaired Insight: Limited Judgement: Poor Mental Health Plan The patient is a 55-year-old white female with a history of severe bipolar mood disorder with psychosis. She has been admitted to multiple inpatient psychiatric hospitals throughout the state over the past 15 years. When she takes her medications, low-dose Klonopin, Haldol and lithium, she tends to do quite well. She apparently has been off medications for an unclear amount of time and has developed a full-blown yahaira. When she is manic, she tends to have a hyperreligious, hypersexual focus with paranoia and extreme irritability. She tends to threaten other people. This has been especially difficult for the people in her life including her and close friends. She has been trying to manage with outpatient services. However, has continued to decompensate since discharging from multiple different units. I am pleased she Agreed to a long-acting neuroleptic (Abilify). She is currently paranoid, quite pressured in her speech and refusing any psychotherapy. She is willing to take medications at this time. The patient did have a 400 mg Abilify Maintena injection on 04/26/2016. She is taking oral aripiprazole and had previously refused Depakote, but is now taking. The patient is still irritable and marginally cooperative but typically response to the addition of valproic acid. [place] I. Bipolar disorder, manic, with psychotic features, Posttraumatic stress disorder, History of polysubstance abuse, in partial remission. [place] II. Deferred. [place] III. Hypertension, insulin-dependent diabetes mellitus, hypothyroidism, and obesity. [place] IV. Unknown. [place] V. Current Global Assessment of Functioning is 30. Medications Aripiprazole 20mg daily Abilify Maintena 400mg IM monthly, 1st dose on 04/26/16 Depakote ER 750 mg at bedtime Lorazepam 1mg po q 4 hours PRN anxiety or agitation Diphenhydramine 25mg po nightly PRN insomnia. Treatments 1. The patient is admitted on an involuntary basis to the [facility]. 2. The patient will be seen by the treatment team on a daily basis to assess symptoms, side effects, and response to treatment. 3. The patient is currently denying active suicidality and does not appear to need a one-to-one at this time. 4. The patient is encouraged to participate in group and milieu activities. 5. The patient will be continued on aripiprazole 20 mg daily. 6. Second opinion obtained for medication override. 7. Schedule lorazepam 1mg daily and at 1430, and 2mg at bedtime and continue lorazepam 2mg po q 4hour prn anxiety with IM backup. 8. Depakote 750mg ER at bedtime. 9. Diphenhydramine 25 mg nightly p.r.n. insomnia. 10. The patient's other medical medications will be continued. 11. Anticipated length of stay is 10-14 days the patient is currently on a continuation of her less restrictive order with 14 additional inpatient days but this may need to be changed if the patient does not fully respond. Liam Dobbins MD May 09, 2016 13:23
--- NOTE | 2016-05-09 14:51 | NUR ---
Obs Dayshift Pt started the shift irritable, and making random comments about some staff and trying to make more work for them. Pt did take a nap in the late morning and was in a better mood, and more polite toward staff and peers after lunch. Pt has been sitting out in the milieu more, doing art work, and listening to music. Pt is more calm, and much more quiet today. Labile, Disorganized thought process, Irritable, Tangential, Delusional Good ADL's, Good meals
--- NOTE | 2016-05-09 18:31 | NUR ---
Nursing Day shift: Violet has maintained appropriate behavior with peers and staff today. She is out on [facility] open unit engaged in activies such as TV or coloring. Acted in a supportive manner to two new patients in showing them where things were for snacks, etc. Makes requests of staff in polite manner. Mid afternoon, pt stated she felt as though her blood sugar was low. She ate ice cream and sugary drink. Was surprised when her pre-dinner BG was 211. Constipation: Yesterday and today, Malu requested and received MOM. She states that she didn't have a BM either day. Pt was observed doing exercises. A: Medication regimen beginning to moderate hypomanic symptoms. P: Continue to assess for effectiveness. Recheck for constipation in a.m.
[2016-05-09] MEDS: Divalproex (QD) 250 mg ER24 Tablet PO SCH (21:08)
[2016-05-09] MEDS: diphenhydrAMINE 25 mg Capsule PO SCH (21:08)
[2016-05-09] MEDS: LORazepam 2 mg Tablet PO SCH (21:08)
[2016-05-10] MEDS: guaiFENesin DM 200-20 mg/10 mL Syrup PO PRN ×2 (00:01→05:52)
[2016-05-10] MEDS: diphenhydrAMINE 50 mg Capsule PO PRN (00:01)
[2016-05-10] MEDS: LORazepam 2 mg Tablet PO PRN (00:01)
--- NOTE | 2016-05-10 03:31 | NUR ---
Observations 1900 to 0700 Pt has been displaying some manic behavior. Pt behavior is improved. Pt was polite for the most part. Pt first appeared asleep at 22:00 and was observed every 15 minutes through the night as directed.
--- NOTE | 2016-05-10 05:51 | NUR ---
Nursing Noc Pt maintaining appropriate behavior this shift. Zero hypersexual as noted last time conventional mortgage underwriter worked with patient. Report of c/o constipation from evening shift but no mention this shift. Treatment given for URI symtoms this shift per patient request. Sleep remains poor with patient noted to pace on and off through the night. Continuing to monitor mood, behavior, medications and sleep by Q15 minute safety checks. CP
[2016-05-10] MEDS: Pantoprazole 40 mg ER24 Tablet PO SCH (07:38)
[2016-05-10] MEDS: LORazepam 1 mg Tablet PO SCH ×2 (07:41→14:56)
[2016-05-10] MEDS: ARIPiprazole 10 mg Tablet PO SCH (07:42)
[2016-05-10] MEDS: Magnesium Hydroxide 10 mL Oral Concentration PO PRN (08:18)
[2016-05-10 12:22] VITALS: BP 123/73; PULSE 67; RESP 16
--- NOTE | 2016-05-10 12:27 | PCM.PNPSY ---
Subjective Date of Service May 10, 2016 Subjective I spent 20 minutes both reviewing course with the treatment team, and interviewing the patient. Malu could only tolerate a brief interaction however she was pleasant and refrain from abusive language during the contact. This was a marked change from the past 72 hours. Malu repeats no difficulty with her thought organization or mood stability. "I am fine" Staff reports that she has been able to refrain from directly threatening anyone for the past 72 hours and that she has been medication compliant. She appears tense and as if working hard to maintain a pleasant demeanor. On the unit she has a difficult time participating in one-to-one unit and group activities as she gets so triggered by relatively normal social interactions. She slept 4.25 hours and denies yahaira or psychotic symptoms review. She denies medication side effects. Patient was able to identify her medications and what they were used to treat. Mental Status Exam Vital Signs Vital Signs Date Time Temp Pulse Resp B/P Pulse Ox O2 Delivery O2 Flow Rate FiO2 05/10/16 12:22 36.8 67 16 123/73 Appearance: Neat/well groomed Attitude: Guarded Affect: Restricted Mood: Euthymic Thought Process/Associations: Goal Directed Speech Production: Normal Speech Rate: Normal Speech Articulation: Normal Thought Content: Perseveration Danger to Self/Suicidal Ideati: None Danger to Others: None Delusions: Paranoid (Endorses), Grandiose (Endorses) Consciousness: Hyper-vigilant Orientation: Person, Place, Situation Memory: Untestable Estimate Intellectual Function: Average Basis for IQ estimate: Awareness current events, Word use/vocabulary, Educational history, Employment history Attention/Concentration & Cogn: Impaired Insight: Limited Judgement: Limited Mental Health Plan The patient is a 55-year-old white female with a history of severe bipolar mood disorder with psychosis. She has been admitted to multiple inpatient psychiatric hospitals throughout the state over the past 15 years. When she takes her medications, low-dose Klonopin, Haldol and lithium, she tends to do quite well. She apparently has been off medications for an unclear amount of time and has developed a full-blown yahaira. When she is manic, she tends to have a hyperreligious, hypersexual focus with paranoia and extreme irritability. She tends to threaten other people. This has been especially difficult for the people in her life including her and close friends. She has been trying to manage with outpatient services. However, has continued to decompensate since discharging from multiple different units. I am pleased she Agreed to a long-acting neuroleptic (Abilify). She is currently paranoid, quite pressured in her speech and refusing any psychotherapy. She is willing to take medications at this time. The patient did have a 400 mg Abilify Maintena injection on 04/26/2016. She is taking oral aripiprazole and had previously refused Depakote, but is now taking. The patient is still irritable and marginally cooperative but typically response to the addition of valproic acid. She appears to be making slow but steady progress. [place] I. Bipolar disorder, manic, with psychotic features, Posttraumatic stress disorder, History of polysubstance abuse, in partial remission. [place] II. Deferred. [place] III. Hypertension, insulin-dependent diabetes mellitus, hypothyroidism, and obesity. [place] IV. Unknown. [place] V. Current Global Assessment of Functioning is 35. Medications Aripiprazole 20mg daily Abilify Maintena 400mg IM monthly, 1st dose on 04/26/16 Depakote ER 750 mg at bedtime Lorazepam 1mg po q 4 hours PRN anxiety or agitation Diphenhydramine 25mg po nightly PRN insomnia. Treatments 1. The patient is admitted on an involuntary basis to the [facility]. 2. The patient will be seen by the treatment team on a daily basis to assess symptoms, side effects, and response to treatment. 3. The patient is currently denying active suicidality and does not appear to need a one-to-one at this time. 4. The patient is encouraged to participate in group and milieu activities. 5. The patient will be continued on aripiprazole 20 mg daily. 6. Second opinion obtained for medication override. 7. Schedule lorazepam 1mg daily and at 1430, and 2mg at bedtime and continue lorazepam 2mg po q 4hour prn anxiety with IM backup. 8. Depakote 750mg ER at bedtime. 9. Diphenhydramine 25 mg nightly p.r.n. insomnia. 10. The patient's other medical medications will be continued. 11. Anticipated length of stay is 10-14 days the patient is currently on a continuation of her less restrictive order with 14 additional inpatient days but this may need to be changed if the patient does not fully respond. Liam Dobbins MD May 10, 2016 12:27
--- NOTE | 2016-05-10 17:30 | NUR ---
[facility] Day Shift Pt maintained behavioral control throughout the shift. Pt affect appears bright in the AM, flatter as the shift progresses. Pt spends msot of the shift interacting with peers in the dining room, participating in unit activities, and pacing the unit. Pt is appropriate with staff and peers when active on the unit, and appears less manic/intrusive than noted on previous shifts. Pt attended community meeting in the AM and all group activities throughout the shift. Pt attended all meals and ate approx 100% of all meals.
--- NOTE | 2016-05-10 19:09 | NUR ---
[id number]. nurs. S/O: Pt out on unit taking care of her own needs, and coming to staff with other needs, requesting meds at sheduled times and monitoring her BS, 126 in am and 92 at dinner time. Pt expressing her opinions to peer, particularly another peer with a hypomanic presentation, no altercations ,pt with controlled behaviour. Pt not expressing any delusional ideation, some pressure in affect, moderated verbal expression, aware of environment and others ,some apparent guarded affect. Pt appearing mostly comfortable on unit. P:CNCP
[2016-05-10] MEDS: diphenhydrAMINE 25 mg Capsule PO SCH (21:30)
[2016-05-10] MEDS: Divalproex (QD) 250 mg ER24 Tablet PO SCH (21:31)
[2016-05-10] MEDS: LORazepam 2 mg Tablet PO SCH (21:31)
[2016-05-11] MEDS: diphenhydrAMINE 50 mg Capsule PO PRN (00:04)
[2016-05-11] MEDS: guaiFENesin DM 200-20 mg/10 mL Syrup PO PRN ×2 (00:04→17:36)
[2016-05-11] MEDS: LORazepam 2 mg Tablet PO PRN (00:05)
--- NOTE | 2016-05-11 02:55 | NUR ---
Observations 1900 to 0700 Pt has been displaying some manic behavior. Pt behavior is improved. Pt was observed going into another Pt's room and was told to leave quickly. Pt was polite for the most part. Pt first appeared asleep at 22:30 and was observed every 15 minutes through the night as directed.
--- NOTE | 2016-05-11 04:44 | NUR ---
Nursing Noc Pt continues to appear to improve and cooperate in milieu. Still reports difficulty getting to sleep, reports anxiety about grand children and family. Pt taking medications as prescribed. Continuing to monitor mood behavior sleep times and and safety with Q15 minute visual checks.
[2016-05-11] MEDS: LORazepam 1 mg Tablet PO SCH ×2 (07:45→14:30)
[2016-05-11] MEDS: Pantoprazole 40 mg ER24 Tablet PO SCH (07:45)
[2016-05-11] MEDS: ARIPiprazole 10 mg Tablet PO SCH (07:46)
[2016-05-11] MEDS: Magnesium Hydroxide 10 mL Oral Concentration PO PRN (08:42)
--- NOTE | 2016-05-11 13:26 | PCM.PNPSY ---
Subjective Date of Service May 11, 2016 Subjective I spent 20 minutes both reviewing course with the treatment team, and interviewing the patient. Malu was able to tolerate a brief session today, she was genuinely pleasant and refrained from abusive language during the contact. This was a marked change from the past 72 hours. Malu repeats no difficulty with her thought organization or mood stability and "I am fine". Her presentation today was actually congruent with thought organization and mood stability. Staff reports that she has been able to her to participate well with staff and other patients and that she has been medication compliant. She appears calm. She is markedly less triggered by relatively normal social interactions. She slept 3.5 hours and denies yahaira or psychotic symptoms review. She denies medication side effects. Patient was able to identify her medications and what they were used to treat. Mental Status Exam Appearance: Neat/well groomed Attitude: Pleasant, Cooperative Affect: Restricted Mood: Euthymic Thought Process/Associations: Goal Directed Speech Production: Normal Speech Rate: Normal Speech Articulation: Normal Thought Content: Perseveration Danger to Self/Suicidal Ideati: None Danger to Others: None Consciousness: Hyper-vigilant Orientation: Person, Place, Situation Memory: Untestable Estimate Intellectual Function: Average Basis for IQ estimate: Awareness current events, Word use/vocabulary, Educational history, Employment history Attention/Concentration & Cogn: Impaired Insight: Limited Judgement: Limited Mental Health Plan The patient is a 55-year-old white female with a history of severe bipolar mood disorder with psychosis. She has been admitted to multiple inpatient psychiatric hospitals throughout the state over the past 15 years. When she takes her medications, low-dose Klonopin, Haldol and lithium, she tends to do quite well. She apparently has been off medications for an unclear amount of time and has developed a full-blown yahaira. When she is manic, she tends to have a hyperreligious, hypersexual focus with paranoia and extreme irritability. She tends to threaten other people. This has been especially difficult for the people in her life including her and close friends. She has been trying to manage with outpatient services. However, has continued to decompensate since discharging from multiple different units. I am pleased she Agreed to a long-acting neuroleptic (Abilify). The time of admission she was quite paranoid, pressured in her speech and refusing any psychotherapy. 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 She was genuinely pleasant and easily to engage In a one-to-one interaction. She could only tolerate a brief session but did so without Name calling or threatening. She is beginning to future plan how to take care of her needs. [place] I. Bipolar disorder, manic, with psychotic features, Posttraumatic stress disorder, History of polysubstance abuse, in partial remission. [place] II. Deferred. [place] III. Hypertension, insulin-dependent diabetes mellitus, hypothyroidism, and obesity. [place] IV. Unknown. [place] V. Current Global Assessment of Functioning is 35. Medications Aripiprazole 20mg daily Abilify Maintena 400mg IM monthly, 1st dose on 04/26/16 Depakote ER 750 mg at bedtime Lorazepam 1mg po q 4 hours PRN anxiety or agitation Diphenhydramine 25mg po nightly PRN insomnia. Treatments 1. The patient is admitted on an involuntary basis to the [facility]. 2. The patient will be seen by the treatment team on a daily basis to assess symptoms, side effects, and response to treatment. 3. The patient is currently denying active suicidality and does not appear to need a one-to-one at this time. 4. The patient is encouraged to participate in group and milieu activities. 5. The patient will be continued on aripiprazole 20 mg daily. 6. Second opinion obtained for medication override. 7. Anticipated length of stay is 10-14 days the patient is currently on a continuation of her less restrictive order with 14 additional inpatient days but this may need to be changed if the patient does not fully respond. Liam Dobbins MD May 11, 2016 13:26 8. Depakote 750mg ER at bedtime. 9. Diphenhydramine 25 mg nightly p.r.n. insomnia. 10. The patient's other medical medications will be continued. 11. Anticipated length of stay is 10-14 days the patient is currently on a continuation of her less restrictive order with 14 additional inpatient days but this may need to be changed if the patient does not fully respond. Liam Dobbins MD May 11, 2016 13:26
[2016-05-11 13:39] VITALS: BP 129/78; PULSE 69; RESP 16
--- NOTE | 2016-05-11 15:40 | NUR ---
Nursing Day Shift- S/O- Pt. continues to have poor and broken sleep. She declined AM scheduled Ativan out of concern she would miss groups, and requested that it be changed to PRN. She exhibited appropriate behavior during the shift, and appeared less pressured, intrusive and suspicious of staff then she had 5 days previous. A- Improving. Continued poor sleep and resistance to sleep. P- Cont. bHTP.
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
[2016-05-11] MEDS: diphenhydrAMINE 25 mg Capsule PO SCH (20:25)
[2016-05-11] MEDS: Divalproex (QD) 250 mg ER24 Tablet PO SCH (20:25)
[2016-05-11] MEDS: LORazepam 2 mg Tablet PO SCH (20:25)
--- NOTE | 2016-05-11 21:25 | NUR ---
Observations 0900 to 2129 Pt affect and mood has improved a little. Friendly, bright at times, intrusive, gamey and paranoid. Pt speech and eye contact was good. Pt was in and out of her room, pacing hallway and staring into nurses station on occasion. Pt was social with staff when approached but is easily agitated. Pt played [employer] and appeared to enjoy this. Pt attended meals in D[employer]. and ate approximately 75-80% of her meals. Pt maintained behavior. Pt took a shower and attended to ADL's. Pt attended exercise group. Pt attended community meeting and set a daily goal. Pt was observed every 15 minutes throughout the shift as ordered.
[2016-05-12] MEDS: LORazepam 2 mg Tablet PO PRN (00:05)
[2016-05-12] MEDS: guaiFENesin DM 200-20 mg/10 mL Syrup PO PRN (05:12)
--- NOTE | 2016-05-12 05:57 | NUR ---
nursing, nights, 11-7 s- what are you doing ? how do you know what that really is ? i'll just let myself in. she wants to talk to me. o- received 2 mg of ativan at midnight and cough syrup at 0500. has appeared to sleep after 0115 to 0415. otherwise has alternated between her room and the dinning room. interacted with the other patients whenever she could. tries to dominate the conversation and speak for others. assessed q 15 minutes. a- inadequate sleep, intrusive and demanding, resistant to redirection, alternates between being pleasant and hostile, medication ineffective, no apparent physical distress. p- monitor behavior/emotional state, quality, times and amount of sleep, use and effect of medication. yolanda
[2016-05-12] MEDS: Pantoprazole 40 mg ER24 Tablet PO SCH (07:48)
[2016-05-12] MEDS: ARIPiprazole 10 mg Tablet PO SCH (08:30)
[2016-05-12] MEDS: LORazepam 1 mg Tablet PO SCH ×2 (08:56→14:30)
[2016-05-12 10:20] VITALS: BP 145/80; PULSE 68; RESP 16
--- NOTE | 2016-05-12 12:00 | PCM.PNPSY ---
Subjective Date of Service May 12, 2016 Subjective I spent 20 minutes both reviewing course with the treatment team, and interviewing the patient. Malu was able to tolerate a brief session again today, she was genuinely pleasant and demonstrated good insight and judgment. Malu repeats no difficulty with her thought organization or mood stability and "I am fine". Her presentation today was actually congruent with relatively good thought organization and mood stability. Staff reports that she has been able to her to participate well with staff and other patients and that she has been medication compliant. She appears calm. She is markedly less triggered by relatively normal social interactions. She slept 3 hours and denies yahaira or psychotic symptoms review. She denies medication side effects. Patient was able to identify her medications and what they were used to treat. Mental Status Exam Appearance: Unkept Attitude: Pleasant, Cooperative Behavior: No unusual behavior Affect: Restricted Mood: Euthymic Thought Process/Associations: Goal Directed Speech Production: Normal Speech Rate: Normal Speech Articulation: Normal Thought Content: Perseveration Danger to Self/Suicidal Ideati: None Danger to Others: None Consciousness: Hyper-vigilant Orientation: Person, Place, Situation Memory: Untestable Estimate Intellectual Function: Average Basis for IQ estimate: Awareness current events, Word use/vocabulary, Educational history, Employment history Attention/Concentration & Cogn: Impaired Insight: Limited Judgement: Limited Mental Health Plan The patient is a 55-year-old white female with a history of severe bipolar mood disorder with psychosis. She has been admitted to multiple inpatient psychiatric hospitals throughout the state over the past 15 years. When she takes her medications, low-dose Klonopin, Haldol and lithium, she tends to do quite well. She apparently has been off medications for an unclear amount of time and has developed a full-blown yahaira. When she is manic, she tends to have a hyperreligious, hypersexual focus with paranoia and extreme irritability. She tends to threaten other people. This has been especially difficult for the people in her life including her and close friends. She has been trying to manage with outpatient services. However, has continued to decompensate since discharging from multiple different units. I am pleased she Agreed to a long-acting neuroleptic (Abilify). The time of admission she was quite paranoid, pressured in her speech and refusing any psychotherapy. Malu made significant progress over the past 3 days. She was genuinely pleasant and easily to engage. She could only tolerate a brief session but did so without Name calling or threatening. She is beginning to future plan how to take care of her needs. [place] I. Bipolar disorder, manic, with psychotic features, Posttraumatic stress disorder, History of polysubstance abuse, in partial remission. [place] II. Deferred. [place] III. Hypertension, insulin-dependent diabetes mellitus, hypothyroidism, and obesity. [place] IV. Unknown. [place] V. Current Global Assessment of Functioning is 35. Medications Aripiprazole 20mg daily Abilify Maintena 400mg IM monthly, 1st dose on 04/26/16 Depakote ER 750 mg at bedtime Lorazepam 1mg po q 4 hours PRN anxiety or agitation Diphenhydramine 25mg po nightly PRN insomnia. Treatments 1. The patient is admitted on an involuntary basis to the [facility]. 2. The patient will be seen by the treatment team on a daily basis to assess symptoms, side effects, and response to treatment. 3. The patient is currently denying active suicidality and does not appear to need a one-to-one at this time. 4. The patient is encouraged to participate in group and milieu activities. 5. The patient will be continued on aripiprazole 20 mg daily. 6. Second opinion obtained for medication override. 7. patient is currently on a continuation of her less restrictive order with 14 additional inpatient days Liam Dobbins MD May 12, 2016 12:00
--- NOTE | 2016-05-12 12:47 | NUR ---
Nursing: Day shift: S: I feel good today. Just a little sleepy. O: Malu has been out on the open unit most of the shift. She is smiling, polite to peers and staff. No statements or behavior indicative of paranoia today. Took meds as offered. Did not scrutinize packages or act suspicious. A: Improved from admission. P: Continue to assess. Addendum: 05/12/16 at 1252 by RENITA HARTMANN RN Amended: Links added.
[2016-05-12] MEDS: Magnesium Hydroxide 10 mL Oral Concentration PO PRN (17:09)
--- NOTE | 2016-05-12 17:53 | NUR ---
[facility] Day Shift Pt maintained behavioral control throughout the shift. Pt affect appears mostly flat throughout the shift, brighter when engaged with staff and peers. Pt spends most of the shift interacting with peers in the dining room, participating in unit activities, and pacing the unit. Pt is briefly irritable in the AM, but was not once breakfast arrived. Pt is appropriate with staff and peers when active on the unit, and appears less manic/intrusive than noted on previous shifts. Pt attended community meeting in the AM and all group activities throughout the shift. Pt attended all meals and ate approx 100% of all meals.
[2016-05-12] MEDS: Divalproex (QD) 250 mg ER24 Tablet PO SCH (21:00)
[2016-05-12] MEDS: LORazepam 2 mg Tablet PO SCH (21:11)
[2016-05-12] MEDS: diphenhydrAMINE 25 mg Capsule PO SCH (21:11)
--- NOTE | 2016-05-12 23:40 | NUR ---
Nursing Note - Supervisor Customer Complaint Service 7pm to 7am Pt visible on unit, pleasant and calm, seen interacting appropriately with peers. Declined HS Depakote stating I dont take Depakote, I have never taken Depakote. Pt denies SI, plan or intent. No delusional content elicited this shift.
[2016-05-13] MEDS: guaiFENesin DM 200-20 mg/10 mL Syrup PO PRN ×2 (02:20→21:18)
--- NOTE | 2016-05-13 05:48 | NUR ---
nursing, nights, 11-7 s- nobody ever asked me that. they trust me not to walk out the door. i need some cough syrup. she wants me to be here. o- has appeared to sleep 2245 to 0145, 0415 to 0500 and for a couple of brief periods. otherwise has remained awake pacing, socializing with whoever is available and interfering with other patients care. received cough syrup at 0220. declined other medication. assessed q 15 minutes. a- entitled, intrusive, lurking, hostile at times, resistant to redirection, inadequate/interrupted sleep, no apparent physical distress. p- monitor behavior/emotional state, quality, times and amount of sleep, use and effect of medication. yolanda
[2016-05-13] MEDS: Pantoprazole 40 mg ER24 Tablet PO SCH (08:23)
[2016-05-13] MEDS: ARIPiprazole 10 mg Tablet PO SCH (08:24)
[2016-05-13] MEDS: LORazepam 1 mg Tablet PO SCH ×4 (08:25→16:33)
[2016-05-13 11:47] VITALS: BP 135/81; PULSE 60; RESP 16
[2016-05-13] MEDS: LORazepam 2 mg Tablet PO PRN (12:23)
[2016-05-13] MEDS: LORazepam 2 mg Tablet PO SCH ×2 (12:23→21:10)
--- NOTE | 2016-05-13 15:52 | PCM.PNPSY ---
Subjective Date of Service May 13, 2016 Subjective I spent 20 minutes both reviewing course with the treatment team, and interviewing the patient. Malu was angry frustrated and only able to tolerate a brief session today. Malu repeats no difficulty with her thought organization or mood stability and "I am fine". Her presentation today was back to irritability, dysphoria, And a tendency to blame other people. Staff reports that she has been able to her to participate with staff and other patients and that she has been medication compliant. She slept only 3.5 but is refusing increasing sleep meds. Patient was able to identify her medications and what they were used to treat. Mental Status Exam Vital Signs Vital Signs Date Time Temp Pulse Resp B/P Pulse Ox O2 Delivery O2 Flow Rate FiO2 05/13/16 11:47 37.0 60 16 135/81 Appearance: Unkept Attitude: Hostile/Threatening Behavior: Distractible Affect: Restricted, Labile Mood: Irritable, Dysthymic Thought Process/Associations: Goal Directed Speech Production: Normal Speech Rate: Normal Speech Articulation: Normal Thought Content: Perseveration Danger to Self/Suicidal Ideati: None Danger to Others: None Consciousness: Hyper-vigilant Orientation: Person, Place, Situation Memory: Untestable Estimate Intellectual Function: Average Basis for IQ estimate: Awareness current events, Word use/vocabulary, Educational history, Employment history Attention/Concentration & Cogn: Impaired Insight: Limited Judgement: Limited Mental Health Plan The patient is a 55-year-old white female with a history of severe bipolar mood disorder with psychosis. She has been admitted to multiple inpatient psychiatric hospitals throughout the state over the past 15 years. When she takes her medications, low-dose Klonopin, Haldol and lithium, she tends to do quite well. She apparently has been off medications for an unclear amount of time and has developed a full-blown yahaira. When she is manic, she tends to have a hyperreligious, hypersexual focus with paranoia and extreme irritability. She tends to threaten other people. This has been especially difficult for the people in her life including her and close friends. She has been trying to manage with outpatient services. However, has continued to decompensate since discharging from multiple different units. I am pleased she Agreed to a long-acting neuroleptic (Abilify). The time of admission she was quite paranoid, pressured in her speech and refusing any psychotherapy. Malu made significant progress over the past 72 where she was genuinely pleasant and easily to engage. Today she was back to irritability agitation and blaming me for poor psychiatric care. [place] I. Bipolar disorder, manic, with psychotic features, Posttraumatic stress disorder, History of polysubstance abuse, in partial remission. [place] II. Deferred. [place] III. Hypertension, insulin-dependent diabetes mellitus, hypothyroidism, and obesity. [place] IV. Unknown. [place] V. Current Global Assessment of Functioning is 35. Medications Aripiprazole 20mg daily Abilify Maintena 400mg IM monthly, 1st dose on 04/26/16 Depakote ER 750 mg at bedtime Lorazepam 1mg po q 4 hours PRN anxiety or agitation Diphenhydramine 25mg po nightly PRN insomnia. Treatments 1. The patient is admitted on an involuntary basis to the [facility]. 2. The patient will be seen by the treatment team on a daily basis to assess symptoms, side effects, and response to treatment. 3. The patient is currently denying active suicidality and does not appear to need a one-to-one at this time. 4. The patient is encouraged to participate in group and milieu activities. 5. The patient will be continued on aripiprazole 20 mg daily. 6. Second opinion obtained for medication override. 7. patient is currently on a continuation of her less restrictive order with 14 additional inpatient days Liam Dobbins MD May 13, 2016 15:52
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
--- NOTE | 2016-05-13 18:50 | NUR ---
Certified Diabetes Educator./ c.m. S.:"I don't need anything, but thank you anyway." O.: met with pt. briefly to discuss her progress. She denied SI/HI. She denied AH/VH. She didn't want to talk about anything. She took a shower after dinner. She was walking in a lam with other peers on and off as well as spending time by herself. A.: pt. is guarded, social with peers, looks calm at this time. P.: monitor behavior, monitor meds intake; follow care plan.
[2016-05-13] MEDS: Magnesium Hydroxide 10 mL Oral Concentration PO PRN (19:55)
--- NOTE | 2016-05-13 20:31 | NUR ---
OBSERVATIONS 0700 to 2130 Pt was appropriate and social with peers and pleasant and cooperative with staff throughout the day. Pt was happy to have been able to nap twice during the day for an hour or more each time. Pt showered today and did laundry. Pt was cheerful, flat, and tearful at different times during the day; tearfulness was particularly pronounced following a vocal outburst from another pt. Pt participated in groups, exercised, and played Wii with peers. Q15 checks for safety were maintained as directed.
[2016-05-13] MEDS: Divalproex (QD) 250 mg ER24 Tablet PO SCH ×2 (21:00→21:11)
[2016-05-13] MEDS: diphenhydrAMINE 25 mg Capsule PO SCH (21:10)
[2016-05-14] MEDS: diphenhydrAMINE 50 mg Capsule PO PRN (01:16)
[2016-05-14] MEDS: LORazepam 2 mg Tablet PO PRN (01:17)
--- NOTE | 2016-05-14 05:56 | NUR ---
nursing, nights, 11-7 s- i'm people watching. can i have some ativan ? and some benadryl ? he snores real loud. i'm afraid to close my door. ok i'll try the ear plugs. can i have some tylenol for my hip ? i need some toilet paper. thank you very much. o- has appeared to sleep after 2145. up watching staff at 2340. asleep at the dinning room table at midnight. received 2 mg of ativan and 50 mg of benadryl at 0120. slept 0215 to 0315. received 650 mg of tylenol at 0410 for hip pain 06/21. slept 0415 to 0515. currently pacing in the lam. assessed q 15 minutes. a- inadequate sleep, medication helpful, less intrusive, more appropriate, no hostility, no apparent physical distress. p- monitor behavior/emotional state, quality, times and amount of sleep, use and effect of medication. yolanda
[2016-05-14] MEDS: Pantoprazole 40 mg ER24 Tablet PO SCH (08:02)
[2016-05-14] MEDS: ARIPiprazole 10 mg Tablet PO SCH (08:04)
[2016-05-14 08:20] VITALS: BP 122/70; PULSE 65; RESP 17
--- NOTE | 2016-05-14 11:10 | PCM.PNPSY ---
Subjective Date of Service May 14, 2016 Subjective I spent 20 minutes both reviewing course with the treatment team, and interviewing the patient. Malu was again angry frustrated and only able to tolerate a brief session today. Malu repeats no difficulty with her thought organization or mood stability and "I am fine". Her presentation today was back to irritability, dysphoria, And a tendency to blame other people. Staff reports that she has been able to her to participate with staff and other patients and that she has been medication compliant. She slept only 3.5 but is refusing increasing sleep meds. Patient was able to identify her medications and what they were used to treat. For unclear reasons she has refused Depakote for 3 days in a row. I believe the combination of Abilify and Depakote is necessary for her stability. Since refusing Depakote she has had several very difficult days and appears to be going in the wrong direction. I tried to educate about relative risks benefits and side effects and in continuing to encourage she take medications as prescribed. Mental Status Exam Vital Signs Vital Signs Date Time Temp Pulse Resp B/P Pulse Ox O2 Delivery O2 Flow Rate FiO2 05/14/16 08:20 37.1 65 17 122/70 Appearance: Unkept Attitude: Hostile/Threatening Behavior: Distractible Affect: Restricted, Labile Mood: Irritable, Dysthymic Thought Process/Associations: Goal Directed Speech Production: Normal Speech Rate: Normal Speech Articulation: Normal Thought Content: Perseveration Danger to Self/Suicidal Ideati: None Danger to Others: None Consciousness: Hyper-vigilant Orientation: Person, Place, Situation Memory: Untestable Estimate Intellectual Function: Average Basis for IQ estimate: Awareness current events, Word use/vocabulary, Educational history, Employment history Attention/Concentration & Cogn: Impaired Insight: Limited Judgement: Limited Mental Health Plan The patient is a 55-year-old white female with a history of severe bipolar mood disorder with psychosis. She has been admitted to multiple inpatient psychiatric hospitals throughout the state over the past 15 years. When she takes her medications, low-dose Klonopin, Haldol and lithium, she tends to do quite well. She apparently has been off medications for an unclear amount of time and has developed a full-blown yahaira. When she is manic, she tends to have a hyperreligious, hypersexual focus with paranoia and extreme irritability. She tends to threaten other people. This has been especially difficult for the people in her life including her and close friends. She has been trying to manage with outpatient services. However, has continued to decompensate since discharging from multiple different units. I am pleased she Agreed to a long-acting neuroleptic (Abilify). The time of admission she was quite paranoid, pressured in her speech and refusing any psychotherapy. Malu made significant progress over the past 72 where she was genuinely pleasant and easily to engage. Today she was back to irritability agitation and blaming me for poor psychiatric care. [place] I. Bipolar disorder, manic, with psychotic features, Posttraumatic stress disorder, History of polysubstance abuse, in partial remission. [place] II. Deferred. [place] III. Hypertension, insulin-dependent diabetes mellitus, hypothyroidism, and obesity. [place] IV. Unknown. [place] V. Current Global Assessment of Functioning is 35. Medications Aripiprazole 20mg daily Abilify Maintena 400mg IM monthly, 1st dose on 04/26/16 Depakote ER 750 mg at bedtime (patient last dose 05/11/2016) Lorazepam 1mg po q 4 hours PRN anxiety or agitation Diphenhydramine 25mg po nightly PRN insomnia. Treatments 1. The patient is admitted on an involuntary basis to the [facility]. 2. The patient will be seen by the treatment team on a daily basis to assess symptoms, side effects, and response to treatment. 3. The patient is currently denying active suicidality and does not appear to need a one-to-one at this time. 4. The patient is encouraged to participate in group and milieu activities. 5. The patient will be continued on aripiprazole 20 mg daily and encourage Depakote. 6. Second opinion obtained for medication override. 7. patient is currently on a continuation of her less restrictive order with 14 additional inpatient days Liam Dobbins MD May 14, 2016 11:10
--- NOTE | 2016-05-14 12:29 | NUR ---
Senior Solutions Engineer./ c.m. S.:"I'm fine. Look what I have! There was a whole family there." O.: pt. was in and out of her room 1st part of the day. She went outside in a patio and found a lady bag on her top after that. She came to conventional underwriter and showed it. She was excited to take it back to the patio "to return to the family". She denied SI/HI - "don't even ask, I never had them." She didn't want to talk about anything else. She was walking in a lam on and off since supervisor braiding. A.: pt. is cooperative, guarded, unpredictable in her behavior. P.: monitor behavior, monitor meds intake; follow care plan.
[2016-05-14] MEDS: LORazepam 1 mg Tablet PO SCH (15:11)
--- NOTE | 2016-05-14 18:20 | NUR ---
NURS Note [id number] S/O "Today is a 10 day." Reports positive mood. Denies depression, anxiety. Denies SI, HI. Affect restricted, guarded, modulates between superficial smile and patiño, pensive expression. Pt was up in milieu much of shift, socializing appropriately with fellow pts. Expressed anger toward previous night staff. With clenched jaw and clenched fist pt state, "He told me I'd already taken three ibuprofen today and I hadn't had a single one. That makes me mad." Took PRN ibuprofen 800 mg PO at 1549 for back pain, reports pain improved from 10/10 to 0/10. A Pt exhibited signs of emotional and behavioral volatility. P Monitor behavior. Continue with care plan.
--- NOTE | 2016-05-14 19:11 | NUR ---
Observations 0900 to 2130 Pt affect and mood was friendly, bright at times, flat, anxious and preoccupied. Pt speech and eye contact was good. Pt was in and out of her room, pacing hallway and talking to peers. Pt was social with staff when approached. Pt played ping pong with peer and appeared to enjoy this. Pt attended meals in D.R. and ate 100% of her meals. Pt maintained behavior. Pt took a shower and attended to ADL's. Pt attended group and unit activities. Pt was observed every 15 minutes throughout the shift as ordered.
[2016-05-14] MEDS: Divalproex (QD) 250 mg ER24 Tablet PO SCH (21:00)
[2016-05-14] MEDS: diphenhydrAMINE 25 mg Capsule PO SCH (21:08)
[2016-05-14] MEDS: LORazepam 2 mg Tablet PO SCH (21:08)
[2016-05-14] MEDS: guaiFENesin DM 200-20 mg/10 mL Syrup PO PRN (21:09)
--- NOTE | 2016-05-14 22:10 | NUR ---
Nurses PRN Patient received Robitussin 10cc,Ibuprofen 800mg for cold symptoms at 2109. She continues to Refuse Depakote.
--- NOTE | 2016-05-15 01:37 | NUR ---
Observations 1900 to 0700 Pt has been displaying some manic behavior but has improved. Pt was polite for the most part. Pt as usual is having a hard time sleeping. Pt first appeared asleep at 22:30 and was observed every 15 minutes through the night as directed.
[2016-05-15] MEDS: diphenhydrAMINE 50 mg Capsule PO PRN (01:49)
[2016-05-15] MEDS: LORazepam 2 mg Tablet PO PRN (01:49)
--- NOTE | 2016-05-15 05:02 | NUR ---
Nursing Noc Pt had a pleasant evening. She spent her time out in the milieu interacting with both peers and staff, cooperative, participating in evening activities. She expressed no anger this evening and in fact showed gratitude and thanked this staff member for assistance given. She had disruptive sleep tonight. She slept from 2120-5210 then remained awake until 0200. She received Ativan 2mg po prn for anxiety, Benadryl 50mg po prn for itching and Tylenol 650 mg po prn for chronic back/shoulder pain. Medication appeared helpful she has remained asleep through the night with no further complaint or awakening. Total sleep over 4.75 hours.
[2016-05-15] MEDS: Magnesium Hydroxide 10 mL Oral Concentration PO PRN (05:55)
[2016-05-15] MEDS: Pantoprazole 40 mg ER24 Tablet PO SCH (08:16)
[2016-05-15] MEDS: LORazepam 1 mg Tablet PO SCH ×3 (08:16→14:30)
[2016-05-15] MEDS: ARIPiprazole 10 mg Tablet PO SCH (08:17)
[2016-05-15 10:00] VITALS: BP 130/77; PULSE 65; RESP 18
--- NOTE | 2016-05-15 16:34 | NUR ---
Self care Pt. woke up early today, put on her workout clothes, and did some morning exercise. She felt good about taking care of herself. Mood was stable and pleasant. Refused THOMAS Lorazepam in the afternoon, stated, "I don't have any anxiety right now." She enjoyed ping-pong in the hallway.
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
--- NOTE | 2016-05-15 20:52 | PCM.PNPSY ---
Subjective Date of Service May 15, 2016 Subjective The patient reports that she has been not taking Depakote out of concern for weight can and a reported rash. Patient has continued to take other psychiatric medications. Patient reports that she is keeping her blood sugars under control by watching what she eats and exercising with 50 each of toe touches and jumping jacks per day. She indicated that she was willing to have followup with the PAT team on discharge and willing to discuss with them any possible housing options. Patient requests something to help her sleep better than Benadryl. Zolpidem previously caused somnambulation. Sleep: 5.25 hours Appetite: good Suicidal and homicidal ideation: denies Auditory hallucinations/Visual hallucinations: denies Other Psychotic Symptoms: mild irritability. Anxiety: 0/10 Depression: 0/10 Mental Status Exam Appearance: Neat/well groomed, Unkept Attitude: Cooperative, Guarded Behavior: No unusual behavior Affect: Other (hostile undertone, but smiling) Mood: Irritable Thought Process/Associations: Goal Directed Speech Production: Normal Speech Rate: Normal Speech Articulation: Normal Thought Content: Negativistic, Perseveration Danger to Self/Suicidal Ideati: None Danger to Others: None Hallucinations: Auditory (Denies), Visual (Denies) Consciousness: Hyper-vigilant Orientation: Person, Place, Situation Memory: Grossly Intact Estimate Intellectual Function: Average Basis for IQ estimate: Awareness current events, Word use/vocabulary, Educational history, Employment history Attention/Concentration & Cogn: Impaired Insight: Limited Judgement: Limited Mental Health Plan The patient is a 56-year-old female with a history of bipolar disorder who appears to have been medication nonadherent in the community and had a return of symptoms. The patient did have a 400 mg Abilify Maintena injection on 2016. She is taking oral aripiprazole and had previously refused Depakote, was taking, and now has been refusing since 05/11/16. Despite this, the patient has not had the return of the same level of irritability present on admission. Although dismissing the PACT last week, she is agreeable to meeting with them now. [place] I. Bipolar disorder, manic, with psychotic features, Posttraumatic stress disorder, History of polysubstance abuse, in partial remission. [place] II. Deferred. [place] III. Hypertension, insulin-dependent diabetes mellitus, hypothyroidism, and obesity. [place] IV. Unknown. [place] V. Current Global Assessment of Functioning is 35. Medications Aripiprazole 20mg daily Estherlimiranday Maintena 400mg IM monthly, 1st dose on 04/26/16 Depakote ER 750 mg at bedtime (patient last dose 05/11/2016) Lorazepam 1mg po q 4 hours PRN anxiety or agitation Lorazepam 1mg po daily, 1430 and 2mg at bedtime Diphenhydramine 25mg po nightly PRN insomnia. Treatments 1. The patient is admitted on an involuntary basis to the [facility]. 2. The patient will be seen by the treatment team on a daily basis to assess symptoms, side effects, and response to treatment. 3. The patient is currently denying active suicidality and does not appear to need a one-to-one at this time. 4. The patient is encouraged to participate in group and milieu activities. 5. The patient will be continued on aripiprazole 20 mg daily. 6. Second opinion obtained for medication override. 7. Schedule lorazepam 1mg daily and at 1430, and 2mg at bedtime and continue lorazepam 2mg po q 4hour prn anxiety with IM backup. 8. Depakote 750mg ER at bedtime, patient refusing with last dose on 05/11/16. 9. Temazepam 15 mg nightly p.r.n. insomnia. 10. The patient's other medical medications will be continued. 11. Anticipated length of stay is 5-7 days the patient is currently on a continuation of her less restrictive order with 14 additional inpatient days but this may need to be changed if the patient does not fully respond. Jez Stephens MD May 15, 2016 20:51 Diphenhydramine 25mg po nightly PRN insomnia. Treatments 1. The patient is admitted on an involuntary basis to the [facility]. 2. The patient will be seen by the treatment team on a daily basis to assess symptoms, side effects, and response to treatment. 3. The patient is currently denying active suicidality and does not appear to need a one-to-one at this time. 4. The patient is encouraged to participate in group and milieu activities. 5. The patient will be continued on aripiprazole 20 mg daily. 6. Second opinion obtained for medication override. 7. Schedule lorazepam 1mg daily and at 1430, and 2mg at bedtime and continue lorazepam 2mg po q 4hour prn anxiety with IM backup. 8. Depakote 750mg ER at bedtime, patient refusing with last dose on 05/11/16. 9. Diphenhydramine 25 mg nightly p.r.n. insomnia. 10. The patient's other medical medications will be continued. 11. Anticipated length of stay is 5-7 days the patient is currently on a continuation of her less restrictive order with 14 additional inpatient days but this may need to be changed if the patient does not fully respond. Jez Stephens MD May 15, 2016 20:51
[2016-05-15] MEDS: Divalproex (QD) 250 mg ER24 Tablet PO SCH (21:00)
[2016-05-15] MEDS: diphenhydrAMINE 25 mg Capsule PO SCH (21:06)
[2016-05-15] MEDS: LORazepam 2 mg Tablet PO SCH (21:07)
[2016-05-16] MEDS: diphenhydrAMINE 50 mg Capsule PO PRN (02:02)
[2016-05-16] MEDS: LORazepam 2 mg Tablet PO PRN (02:03)
[2016-05-16] MEDS: guaiFENesin DM 200-20 mg/10 mL Syrup PO PRN (02:03)
--- NOTE | 2016-05-16 02:12 | NUR ---
Observations 1900 to 0700 Pt affect and behavior has improved. Pt was polite for the most part. Pt as usual is having a hard time sleeping. Pt spent a lot of the night in the DR Pt first appeared asleep at 22:45 and was observed every 15 minutes through the night as directed.
--- NOTE | 2016-05-16 06:05 | NUR ---
Nursing Noc Pt pleasant, social and cooperative with care. She participated in evening group and activities. Took scheduled medication except continues to refuse Depakote. She received her first dose of Temazepam 15mg po prn for sleep tonight but there continues to be little change in her sleep pattern. She slept from 1377-2409 then from 7546-7559. Total sleep tonight 4.75 hours.
[2016-05-16] MEDS: ARIPiprazole 10 mg Tablet PO SCH (08:04)
[2016-05-16] MEDS: LORazepam 1 mg Tablet PO SCH (08:04)
[2016-05-16] MEDS: Pantoprazole 40 mg ER24 Tablet PO SCH (08:04)
[2016-05-16] MEDS: Magnesium Hydroxide 10 mL Oral Concentration PO PRN (08:59)
[2016-05-16 09:00] VITALS: BP 117/70; PULSE 66; RESP 18
--- NOTE | 2016-05-16 15:49 | NUR ---
Content Engineer./ c.m. S.:"My mood is pretty good." O.: met with pt. and MD together to discuss pt.'s progress. She slept "much better" last night. She felt more stable. She met with Jen Guy (aye from [facility]) today and they discussed possible housing options. Pt. was very pleased with that visit. Pt. denied SI/HI, denied AH/VH or paranoid/delusional thoughts, denied depression or anxiety. She was in and out of her room walking in a lam and exercising in a Dining room. A.: pt. is cooperative, pleasant, looks calmer, has a bright affect. P.: monitor behavior, work on follow up and Safety plan, coordinate with PACT; follow care plan.
--- NOTE | 2016-05-16 17:13 | NUR ---
Observations [id number] Pt was awake in dining area upon start of shift. Pt appeared to be paranoid regarding other patients throughout the day, making comments referring to another peer "she knows the names of my granddaughters and daughters and she keeps talking about them.....she's really weird." Pt paced the halls much of the day. She attended group, but didn't enjoy it and left early. Pt did laundry, continue s to clean unit and her room. Pt appeared less expressive and more irritated then in previous days. Her daughter called today, which may have upset her as she is not currently talking with her. Pt was observed every 15 minutes of shift as directed.
--- NOTE | 2016-05-16 18:34 | NUR ---
NURS Note [id number] Mood: "Today is a 10 day. If you want it to be a good day, it will be a good day." Endorses depression 5/10; denies anxiety. Affect: Incongruent with mood. Often appears agitated and preoccupied. Behavior: Pt up for meals, took nap after breakfast. Walked halls. Socialized with peers. Thought Content/Process: "They say they're going to get me housing but they're a bunch of liars." Pt expressed frustration regarding director case from PACT team. Denies SI HI. PRN/NURS Notes: Given milk of magnesia and prune juice for 0940 for constipation.
--- NOTE | 2016-05-16 20:52 | PCM.PNPSY ---
Subjective Date of Service May 16, 2016 Subjective The patient reports that she is doing well today and reported that she is sleeping better than she had previously. She is agreeable to tapering lorazepam. The patient had a meeting with her behavioral health case manager who has reportedly filed an application for housing associated with the mental health program. Sleep: 4.75 hours Appetite: good Suicidal and homicidal ideation: denies Auditory hallucinations/Visual hallucinations: denies Other Psychotic Symptoms: mild irritability. Anxiety: 0/10 Depression: 0/10 Current Medications Current Medications Temazepam 15 mg HS PRN PO Last administered on 05/15/16t 21:07; Admin Dose 15 MG ; Start 05/15/16 at 15:15; Stop 05/16/16 at 12:36; Status DC Mental Status Exam Appearance: Neat/well groomed Attitude: Cooperative, Guarded (mild) Behavior: No unusual behavior Affect: Other (generally pleasant) Mood: Irritable (mild) Thought Process/Associations: Goal Directed Speech Production: Normal Speech Rate: Normal Speech Articulation: Normal Thought Content: Negativistic (mild) Danger to Self/Suicidal Ideati: None Danger to Others: None Hallucinations: Auditory (Denies), Visual (Denies) Consciousness: Hyper-vigilant Orientation: Person, Place, Date (but improving), Situation Memory: Grossly Intact Estimate Intellectual Function: Average Basis for IQ estimate: Awareness current events, Word use/vocabulary, Educational history, Employment history Attention/Concentration & Cogn: Impaired Insight: Limited Judgement: Limited Mental Health Plan The patient is a 56-year-old female with a history of bipolar disorder who appears to have been medication nonadherent in the community and had a return of symptoms. The patient did have a 400 mg Abilify Maintena injection on 2016. She now is taking oral aripiprazole and had previously refused Depakote, was taking it, and now has been refusing since 05/11/16. Despite this, the patient has not had the return of the same level of irritability present on admission. The patient has met with her outpatient team and is working on housing. Agency Agency I. Bipolar disorder, manic, with psychotic features, Posttraumatic stress disorder, History of polysubstance abuse, in partial remission. Agency II. Deferred. Agency III. Hypertension, insulin-dependent diabetes mellitus, hypothyroidism, and obesity. Agency IV. Unknown. Agency V. Current Global Assessment of Functioning is 35. Medications Aripiprazole 20mg daily Adam Maintena 400mg IM monthly, 1st dose on 04/26/16 Depakote ER 750 mg at bedtime (patient last dose 05/11/2016) Lorazepam 1mg po q 4 hours PRN anxiety or agitation Lorazepam 1mg po daily, 1430 and 2mg at bedtime Diphenhydramine 25mg po nightly PRN insomnia. Treatments 1. The patient is admitted on an involuntary basis to the [facility]. 2. The patient will be seen by the treatment team on a daily basis to assess symptoms, side effects, and response to treatment. 3. The patient is currently denying active suicidality and does not appear to need a one-to-one at this time. 4. The patient is encouraged to participate in group and milieu activities. 5. The patient will be continued on aripiprazole 20 mg daily. 6. Second opinion obtained for medication override. 7. Schedule lorazepam 1mg daily and discontinue 1430, and 2mg at bedtime and continue lorazepam 2mg po q 4hour prn anxiety with IM backup. 8. Depakote 750mg ER at bedtime, patient refusing with last dose on 05/11/16. 9. Temazepam 15 mg nightly p.r.n. insomnia with repeat. 10. The patient's other medical medications will be continued. 11. Anticipated length of stay is 5-7 days the patient is currently on a continuation of her less restrictive order with 14 additional inpatient days but this may need to be changed if the patient does not fully respond. Jez Stephens MD May 16, 2016 20:52
[2016-05-16] MEDS: Divalproex (QD) 250 mg ER24 Tablet PO SCH (21:00)
[2016-05-16] MEDS: diphenhydrAMINE 25 mg Capsule PO SCH (21:15)
[2016-05-16] MEDS: LORazepam 2 mg Tablet PO SCH (21:15)
[2016-05-17] MEDS: LORazepam 2 mg Tablet PO PRN (00:14)
[2016-05-17] MEDS: Benzocaine-Menthol Lozenge 2/Pkg PO PRN (02:32)
--- NOTE | 2016-05-17 06:13 | NUR ---
Nursing Noc Pt continues to remain busy on the unit. She likes to tidy up and provide food accessories for her peers. She was pleasant towards her peers and she did not show any agitation during the evening. Affect was flat and smiling less this evening. Appropriate behavior. Took scheduled medication along with Temazepam for sleep with good effect. Pt awoke briefly c/o back pain 11/21. She received Ibuprofen 800 mg po prn @ 0233 which was helpful. Improved sleep noted. She slept from 3673-3521, 7524-7607, 9490-5454. Total sleep 6.25 hours.
[2016-05-17] MEDS: Pantoprazole 40 mg ER24 Tablet PO SCH (07:45)
[2016-05-17 08:00] VITALS: BP 117/78; PULSE 70; RESP 16
[2016-05-17] MEDS: ARIPiprazole 10 mg Tablet PO SCH (08:15)
[2016-05-17] MEDS: LORazepam 1 mg Tablet PO SCH (08:16)
--- NOTE | 2016-05-17 16:47 | NUR ---
Nursing Dayshift: S: "I'm just relaxing listening to music." O: Patient in the group room listening to music. Above statement is in response to "how is your day today?" Declined AM scheduled Ativan this AM "It makes me tired. If I want to take a nap later I'll come and get it." Ambulating the lam at times with a flat affect. Brightens with interaction. Eating well at meals. No behavioral problems noted or reported. Denies anxiety, depression, harmful thoughts, and hallucinations. A: Talkative on approach. Cooperative. P: CPOC. Monitor mood and behavior.
--- NOTE | 2016-05-17 17:29 | NUR ---
Nurses PRN Patient requested and received Ibuprofen 800mg for hip pain,will assess response.
--- NOTE | 2016-05-17 18:00 | NUR ---
[facility] Day Shift Pt maintained behavioral control throughout the shift. Pt affect appears mostly flat throughout the shift, brighter when engaged with staff and peers. Pt spends most of the shift interacting with peers in the dining room, participating in unit activities, and pacing the unit. Pt is appropriate with staff and peers when active on the unit, and appears less manic/intrusive than noted on previous shifts. Pt actively participated in unit activities throughout the shift. Pt attended all meals and ate approx 100% of all meals.
--- NOTE | 2016-05-17 19:10 | NUR ---
Counseling/Pacs Administrator: S: "I feel a little drugged up this morning." O: Patient slept 6.25 hours last night per staff. She denies S/I and H/I. She denies auditory and visual hallucinations. Depression is 0/10 and anxiety is 0/10. A: Patient is cooperative, hyper-vigilant, limited insight, limited judgment. P: Follow care plan, coordinate out-patient providers.
[2016-05-17] MEDS: diphenhydrAMINE 25 mg Capsule PO SCH (20:20)
[2016-05-17] MEDS: LORazepam 2 mg Tablet PO SCH (20:20)
--- NOTE | 2016-05-17 21:44 | PCM.PNPSY ---
Subjective Date of Service May 17, 2016 Subjective The patient reports that she is doing well today and reported that she is sleeping better but felt oversedated. She is agreeable to tapering lorazepam and requests am lorazepam be switched to prn. The patient reports her mood as 10/10 good. She reports her trimming caser is looking at [place] [facility] [employer]. No medical c/o except reporting some urinary retention. Sleep: 6.25 hours Appetite: fine Suicidal and homicidal ideation: denies Auditory hallucinations/Visual hallucinations: denies Other Psychotic Symptoms: mild irritability. Anxiety: 0/10 Depression: 0/10 Current Medications Current Medications Temazepam 15 mg HS PRN PO Last administered on 05/16/16t 21:44; Admin Dose 15 MG ; Start 05/16/16 at 12:35 Mental Status Exam Appearance: Neat/well groomed Attitude: Cooperative, Guarded (mild) Behavior: No unusual behavior Affect: Other (generally pleasant) Mood: Irritable (mild) Thought Process/Associations: Goal Directed Speech Production: Normal Speech Rate: Normal Speech Articulation: Normal Thought Content: Negativistic (mild) Danger to Self/Suicidal Ideati: None Danger to Others: None Hallucinations: Auditory (Denies), Visual (Denies) Consciousness: Hyper-vigilant Orientation: Person, Place, Date (but improving), Situation Memory: Grossly Intact Estimate Intellectual Function: Average Basis for IQ estimate: Awareness current events, Word use/vocabulary, Educational history, Employment history Attention/Concentration & Cogn: Impaired Insight: Limited Judgement: Limited Mental Health Plan The patient is a 56-year-old female with a history of bipolar disorder who appears to have been medication nonadherent in the community and had a return of symptoms. The patient did have a 400 mg Abilify Maintena injection on 2016. She now is taking oral aripiprazole and had previously refused Depakote, was taking it, and now has been refusing since 05/11/16. Despite this, the patient has not had the return of the same level of irritability present on admission. The patient has met with her outpatient team and is working on housing. [place] I. Bipolar disorder, manic, with psychotic features, Posttraumatic stress disorder, History of polysubstance abuse, in partial remission. [place] II. Deferred. [place] III. Hypertension, insulin-dependent diabetes mellitus, hypothyroidism, and obesity. [place] IV. Unknown. [place] V. Current Global Assessment of Functioning is 35. Medications Aripiprazole 20mg daily Abilify Maintena 400mg IM monthly, 1st dose on 04/26/16 Depakote ER 750 mg at bedtime (patient last dose 05/11/2016) Lorazepam 1mg po q 4 hours PRN anxiety or agitation Lorazepam 1mg po daily, and 2mg at bedtime Diphenhydramine 25mg po nightly PRN insomnia. Treatments 1. The patient is admitted on an involuntary basis to [facility]. 2. The patient will be seen by the treatment team on a daily basis to assess symptoms, side effects, and response to treatment. 3. The patient is currently denying active suicidality and does not appear to need a one-to-one at this time. 4. The patient is encouraged to participate in group and milieu activities. 5. The patient will be continued on aripiprazole 20 mg daily. 6. Second opinion obtained for medication override. 7. Schedule lorazepam discontinue 1mg daily, and 2mg at bedtime and decrease lorazepam PRN to 1mg po q 4hour prn anxiety with IM backup. 8. Discontinue Depakote 750mg ER at bedtime, patient refusing with last dose on 05/11/16. 9. Temazepam 15 mg nightly p.r.n. insomnia with repeat. 10. The patient's other medical medications will be continued. Check UA given report of urinary retention. 11. Anticipated length of stay is 2-3 days the patient is currently on a continuation of her less restrictive order. Jez Stephens MD May 17, 2016 21:44
[2016-05-17] MEDS ORDERED: LORazepam 1 mg Tablet PO PRN (21:45)
--- NOTE | 2016-05-18 02:53 | NUR ---
Nursing Noc Pt's mood and behavior remains appropriate this evening. She was social and and engaged with both peers and staff. She participated in evening activities. Watched TV prior to going bed. She requested and received Restoril 15mg po prn @ 2210 with a repeat for sleep and Ativan 1mg po prn for felt anxiety. Medications appear effective. Pt slept from [id number] and was able to return to sleep by 0200. No further awakening noted per protocol checks. Will continue to monitor mood, behavior and sleep through the night. Addendum: 05/18/16 at 0500 by NIALL PORTILLO RN up at 0400, pleasant but still intrusive with staff and other patients, currently alternating between her room and the dinning room, assessed q 15 minutes. yolanda Addendum: 05/18/16 at 0516 by AMY GREEN RN Total sleep 3.5 hours
[2016-05-18] MEDS: Pantoprazole 40 mg ER24 Tablet PO SCH (07:12)
[2016-05-18] MEDS: ARIPiprazole 10 mg Tablet PO SCH (07:52)
[2016-05-18 09:03] VITALS: BP 126/80; PULSE 64; RESP 16
[2016-05-18 13:42] LABS: APPEARANCE,URINE CLOUDY (CLEAR,HAZY); COLOR,URINE BLOODY (YELLOW); OCCULT BLOOD,URINE LARGE (NEGATIVE); UROBILINOGEN,URINE NORMAL (NORMAL)
--- NOTE | 2016-05-18 14:35 | PCM.PNPSY ---
Subjective Date of Service May 18, 2016 Subjective The patient reports that she is doing well today and reported that she was not sleeping as well as she could as the temazepam was not strong enough. The patient is tolerating the taper of lorazepam. Transitional housing is still pending and will know more this afternoon. Urinalysis was negative. Sleep: 3.5 hours Appetite: fine Suicidal and homicidal ideation: denies Auditory hallucinations/Visual hallucinations: denies Other Psychotic Symptoms: N/A Anxiety: 0/10 Depression: 0/10 Current Medications Current Medications Lorazepam 1 mg Q4 PRN PO Last administered on 05/17/16t 22:11; Admin Dose 1 MG; Start 05/17/16 at 21:45 Mental Status Exam Vital Signs Vital Signs Date Time Temp Pulse Resp B/P Pulse Ox O2 Delivery O2 Flow Rate FiO2 05/18/16 09:03 36.3 64 16 126/80 Appearance: Neat/well groomed Attitude: Pleasant, Cooperative Behavior: No unusual behavior Affect: Other (generally pleasant) Mood: Irritable (mild) Thought Process/Associations: Goal Directed Speech Production: Normal Speech Rate: Normal Speech Articulation: Normal Thought Content: Appropriate Danger to Self/Suicidal Ideati: None Danger to Others: None Hallucinations: Auditory (Denies), Visual (Denies) Consciousness: Hyper-vigilant Orientation: Person, Place, Date, Situation Memory: Grossly Intact Estimate Intellectual Function: Average Basis for IQ estimate: Awareness current events, Word use/vocabulary, Educational history, Employment history Attention/Concentration & Cogn: Intact Insight: Good Judgement: Limited (but improving) Mental Health Plan The patient is a 56-year-old female with a history of bipolar disorder who appears to have been medication nonadherent in the community and had a return of symptoms. The patient did have a 400 mg Abilify Maintena injection on 2016. She now is taking oral aripiprazole and had previously refused Depakote, was taking it, and now has been refusing since 05/11/16. Despite this, the patient has not had the return of the same level of irritability present on admission and appears to be stabilizing well on aripiprazole monotherapy. The patient has met with her outpatient team and is working on housing. If housing is not located, the patient states that she has stayed in her car before until she had arranged housing. [place] I. Bipolar disorder, manic, with psychotic features, Posttraumatic stress disorder, History of polysubstance abuse, in partial remission. [place] II. Deferred. [place] III. Hypertension, insulin-dependent diabetes mellitus, hypothyroidism, and obesity. [place] IV. Unknown. [place] V. Current Global Assessment of Functioning is 35. Medications Aripiprazole 20mg daily Abilify Maintena 400mg IM monthly, 1st dose on 04/26/16 Lorazepam 1mg po q 4 hours PRN anxiety or agitation Lorazepam 2mg at bedtime Temazepam 15 mg nightly when necessary insomnia with repeat Diphenhydramine 25mg po nightly PRN insomnia. Treatments 1. The patient is admitted on an involuntary basis to the [facility]. 2. The patient will be seen by the treatment team on a daily basis to assess symptoms, side effects, and response to treatment. 3. The patient is currently denying active suicidality and does not appear to need a one-to-one at this time. 4. The patient is encouraged to participate in group and milieu activities. 5. The patient will be continued on aripiprazole 20 mg daily. 6. Second opinion obtained for medication override. 7. Schedule lorazepam 2mg at bedtime and lorazepam PRN 1mg po q 4hour prn anxiety with IM backup. We will decrease bedtime lorazepam when sleep has normalized. 8. Temazepam 30 mg nightly p.r.n. insomnia. 9. The patient's other medical medications will be continued. Check UA given report of urinary retention. 10. Anticipated length of stay is 5-7 days the patient is currently on a continuation of her less restrictive order. Jez Stephens MD May 18, 2016 14:35
--- NOTE | 2016-05-18 16:21 | NUR ---
Nursing Dayshift: S: "I had a good meeting." O: Patient discussing meeting with PACT CM today. States she feels hopeful about discharging soon. Has been ambulating the lam off and on today. Smiles on approach. Social with peers. Good appetite at meals. Denies anxiety, depression, harmful thoughts, and hallucinations. A: Flat affect unless approached then brighter. P: CPOC. Monitor mood and behavior.
--- NOTE | 2016-05-18 19:13 | NUR ---
Counseling/3D Animator: S: "My children have all turned against me." O: Patient only slept 3.5 hours last night per staff. She denies S/I and H/I. She denies auditory and visual hallucinations. Depression is 0/10 and anxiety is 0/10. Patient has been accepted for [facility]. Patient has been notified but has also been notified not to discuss acceptance to [facility] with any of the other patients, which patient agreed to not discuss with the other patients. Patient is to be at [facility] at 12:00 noon tomorrow. A: Patient is cooperative, hyper-vigilant, improved, fair insight, fair judgment. P: Follow care plan, coordinate out-patient providers and [facility].
[2016-05-18] MEDS: diphenhydrAMINE 25 mg Capsule PO SCH (21:00)
[2016-05-18] MEDS: LORazepam 2 mg Tablet PO SCH (21:26)
--- NOTE | 2016-05-19 04:56 | NUR ---
Nursing Noc Pt continues the same as previous nights engaged with evening activities, took scheduled medication, social with both peers and staff. She was noted to be asleep by 2300 with just brief awakenings x 2 and quickly back to sleep. Total sleep 5.5+ hours.
[2016-05-19] MEDS: ARIPiprazole 10 mg Tablet PO SCH (07:31)
[2016-05-19] MEDS: Pantoprazole 40 mg ER24 Tablet PO SCH (07:31)
--- NOTE | 2016-05-19 12:31 | NUR ---
Nursing Discharge Note: Patient cooperative with discharge process. Acknowledges understanding of d/c instructions and has a copy with them upon leaving unit at 1145. Belongings accounted for and with patient. Prescriptions faxed to patients pharmacy. Patient denies harmful thoughts and hallucinations at this time.
--- NOTE | 2016-05-19 13:29 | PCM.DIMED ---
Discharge Instructions Date of Service May 19, 2016 Dates of Hospitalization May 01, 2016 at 21:56 Discharge Diagnosis Discharge Diagnosis [place] I. Bipolar disorder, manic, with psychotic features, Posttraumatic stress disorder, History of polysubstance abuse, in partial remission. [place] II. Deferred. [place] III. Hypertension, insulin-dependent diabetes mellitus, hypothyroidism, obesity [place] IV. Unknown. [place] V. Current Global Assessment of Functioning is 50. Diet Diabetic Activity No restrictions Patient Instructions Should you have any thoughts of harming yourself or others, please call the crisis line, your provider, 911, or go to the nearest Emergency Department. Do not change or discontinue your medications without discussing with your provider. You have been given a prescription for 30 days supply of your medication Follow-up plan AARTI Rdz on 05/22/16 at 09:15am [address] Jen Guy. on 05/23/16 at 09:30am [address] Kacie Beyer CNP on 06/09/16 at 1:45pm [address], [place] [address] Jez Stephens MD May 19, 2016 13:29
[2016-05-19] MEDS ORDERED: LORA-305 PO (13:39)
[2016-05-19] MEDS ORDERED: TEMA15CA3 PO (13:39)
[2016-05-19] MEDS ORDERED: IBUP400T22 PO (13:39)
[2016-05-19] MEDS ORDERED: GLIP10TA10 PO (13:39)
[2016-05-19] MEDS ORDERED: diphenHYDramine PO ×2 (13:39)
[2016-05-19] MEDS ORDERED: METF1000 PO (13:39)
[2016-05-19] MEDS ORDERED: OMEP40CA36 PO (13:39)
[2016-05-19] MEDS ORDERED: LIP40 PO (13:39)
[2016-05-19] MEDS ORDERED: ARIP10TA14 PO (13:39)
[2016-05-19] MEDS ORDERED: LISI-571 PO (13:39)
[2016-05-19] MEDS ORDERED: LEVO200T6 PO (13:39)
[2016-05-19] MEDS ORDERED: ALBU8.5H2 INHALATION (13:39)
[2016-05-19] MEDS ORDERED: LORA-303 PO (13:39)
[2016-05-19] MEDS ORDERED: ARIP400S2 AD (13:42)
--- NOTE | 2016-05-19 19:04 | NUR ---
Counseling/Schedule Maker: S: "I think I'm going to do well at this place I'm going to when I discharge from here." O: Patient slept 6 hours last night per staff. She denies S/I and H/I. She denies auditory and visual hallucinations. Depression is 0/10 and anxiety is 0/10. Patient discharged to [facility]. Out-patient appointments: AARTI Rdz, PACT prescriber, 05/22/16 at 9:15am; Jen Guy, PACT supervisor case loading, 05/23/16 at 9:30am; and Kacie Beyer CNP, [facility], 06/09/16 at 1:45pm. A: Patient is cooperative, hopeful, improved, fair insight, fair judgment. P: Follow care plan, coordinate out-patient providers and [facility].
--- NOTE | 2016-05-21 17:31 | PCM.DC.MED ---
Discharge Summary Date of Service May 19, 2016 Dates of Hospitalization Date of Hospital Admission May 01, 2016 at 21:56 Date of Discharge: May 19, 2016 Providers: Admitting Physician: Wilbert Kennedy DO Primary Care Physician: Gordo Benoit MD Attending Physician: Wilbert Kennedy DO Diagnosis at Time of Discharge Diagnosis at Time of Discharge [place] I. Bipolar disorder, manic, with psychotic features, Posttraumatic stress disorder, History of polysubstance abuse, in partial remission. [place] II. Deferred. [place] III. Hypertension, insulin-dependent diabetes mellitus, hypothyroidism, obesity [place] IV. Unknown. [place] V. Current Global Assessment of Functioning is 50. Brief History IDENTIFYING DATA: The patient is a 56-year-old female with a recent psychiatric hospitalization and a history of bipolar disorder, manic with psychotic features, posttraumatic stress disorder, and history of polysubstance abuse in partial remission, who is referred for revocation of a less restrictive order following failure to comply with her less restrictive order. CHIEF COMPLAINT: "You can ask my attorneys about any medication questions." HISTORY OF PRESENT ILLNESS: The patient was admitted to [facility] on [facility] 22, 2016, and discharged on March 23, 2016. She had been tried on a number of medications but stabilized on a combination of aripiprazole 20 mg daily and Depakote 750 mg. Although discussions had occurred with the patient about long-acting injectables, she was unwilling to start these medications in an inpatient setting. She did apparently agreed to start aripiprazole Maintena and was started on 400 mg on April 26, 2016. According to the designated mental health professional notes accompanying her, she stopped taking prescribed medications and decompensated. She reportedly stated she was "refusing managed medications " and informed them that she would not be observed for medications. She reportedly rapidly deteriorated. She was unwilling to work with the PACT team and so was referred for inpatient hospitalization and potential revocation. She reportedly has lost her housing and is currently homeless, although the details are not available. The patient initially was briefly cooperative but stated that she had taken her medications for two weeks after receiving the long -acting injectable although this is technically impossible, as the injectable was only six days ago. After denying acute issues, she refused to cooperate stating that she would only communicate through her attorneys. This behavior had been noted by the designated mental health professional who also noted that the patient had threatened the [facility], stating, "You better watch your back," and when she was asked whether she was making a threat, she stated, "You bet; the law, the [employer], the [place], the [employer], and the [employer] will get you." "Also, the Mafia will be after you." "They are all on my side." PAST PSYCHIATRIC HISTORY: The patient has a history of multiple inpatient hospitalizations and this appears to be her 12th admission to the [facility] alone. She has also been hospitalized at [facility] and at [facility]. Hospital Course The patient was rather irritable and had stopped taking oral aripiprazole after receiving the long-acting injectable. She was restarted on aripiprazole 20 mg daily. A second opinion for medication override was required as the patient was refusing oral medication. She was also restarted on lorazepam 1 mg twice daily and 2 mg at bedtime for agitation. The patients 90 day less restrictive order was not revoked and the court provided for 14 days of inpatient treatment. As the patient has been off Depakote for some time, this was not restarted on admission however the patient failed to respond adequately to aripiprazole monotherapy and so was restarted on Depakote 750 mg daily. The patient took Depakote from 05/06/2016 to 05/11/2016 and refused to take medication thereafter and it was discontinued on 05/16/2016. The patient gradually responded to medications and was less irritable and more appropriate with the treatment team. To reduce disinhibition, lorazepam was gradually tapered and at the time of discharge was taking 2 mg at bedtime. There was a plan to slowly taper the medication off over the next 4 weeks. The patient had no episodes of seclusion or restraint during this hospitalization. The plan was to gradually taper oral aripiprazole off over a more prolonged period of time as she appears to have decompensated when this was stopped too abruptly. At the time of discharge, the patient was reporting her mood as real good." Sleep was reported as "pretty good," staff reported 6 hours sleep and appetite was reported as okay." Her anxiety was reported as 0/10 and depression as 0/ 10. She denied auditory or visual hallucinations and any thought, intent or plan of hurting herself or others. She denied any racing thoughts or other signs of manic symptoms. Exam Vital Signs (Last) Date Time Temp Pulse Resp B/P Pulse Ox O2 Delivery O2 Flow Rate FiO2 05/18/16 09:03 36.3 64 16 126/80 Exam Discharge Mental Status Exam Appearance: Neat/well groomed Attitude: Pleasant, Cooperative Behavior: No unusual behavior Affect: Other (generally pleasant) Mood: "real good" Thought Process/Associations: Goal Directed Speech Production: Normal Speech Rate: Normal Speech Articulation: Normal Thought Content: Appropriate Danger to Self/Suicidal Ideation: None Danger to Others: None Hallucinations: Auditory (Denies), Visual (Denies) Consciousness: Hyper-vigilant Orientation: Person, Place, Date, Situation Memory: Grossly Intact Estimate Intellectual Function: Average Basis for IQ estimate: Awareness current events, Word use/vocabulary, Educational history, Employment history Attention/Concentration & Cognition: Intact Insight: Good Judgement: Limited (but improving) AIMS: 0 Test 05/01/16 15:45 05/01/16 15:48 05/18/16 13:06 Hold Urine Received (Received) White Blood Count 10.2th/mm3 (3.8-10.1) Red Blood Count 4.42mil/mm3 (3.90-5.20) Hemoglobin 12.6g/dL (12.0-15.6) Hematocrit 37.5% (35.0-46.0) Mean Corpuscular Volume 84.8fL (81-100) Mean Corpuscular Hemoglobin 28.5pg (27.0-35.0) Mean Corpuscular Hemoglobin Concent 33.6% (32.0-37.0) Red Cell Distribution Width 13.0% (12.3-15.4) Platelet Count 445bil/L (150-400) Neutrophils (%) (Auto) 63.3% (40-74) Lymphocytes (%) (Auto) 27.7% (14-46) Monocytes (%) (Auto) 6.5% (4-12) Eosinophils (%) (Auto) 2.0% (0-5) Basophils (%) (Auto) 0.3% (0-3) Sodium Level 127mEq/L (134-144) Potassium Level 4.1mEq/L (3.5-5.2) Chloride Level 90mEq/L (97-108) Carbon Dioxide Level 25mmol/L (18-29) Blood Urea Nitrogen 9mg/dL (6-24) Creatinine 0.55mg/dL (0.57-1.00) Estimat Glomerular Filtration Rate 165mL/min (>59) Glucose Level 162mg/dL (60-99) Calcium Level 9.0mg/dL (8.5-10.1) Total Bilirubin 0.3mg/dL (0.0-1.2) Aspartate Amino Transf (AST/SGOT) 17U/L (0-50) Alanine Aminotransferase (ALT/SGPT) 16U/L (0-32) Alkaline Phosphatase 74U/L (25-150) Total Protein 7.1g/dL (6.4-8.4) Albumin 4.6g/dL (3.4-5.0) Thyroid Stimulating Hormone (TSH) 1.780uIU/mL (0.450-4.500) Urine Color Bloody (YELLOW) Urine Appearance Cloudy (CLEAR,HAZY) Urine pH 6.0 (5.0-8.0) Urine Specific [place] <1.005 (1.003-1.035) Urine Protein Negativemg/dL (NEG,TRACE) Urine Glucose (UA) Negativemg/dL (NEGATIVE) Urine Ketones Negativemg/dL (NEGATIVE) Urine Occult Blood Large (NEGATIVE) Urine Nitrite Negative (NEGATIVE) Urine Bilirubin Negative (NEGATIVE) Urine Urobilinogen Normalmg/dL (NORMAL) Urine Leukocyte Esterase Negative (NEGATIVE) Urine RBC >50/hpf (0-2) Urine WBC 0-5/hpf (0-5) Urine Epithelial Cells Moderate/hpf (NONE-MOD) Urine Crystals None seen (NONE SEEN) Urine Bacteria None/hpf (NONE-FEW) Urine Hyaline Casts None/lpf (NONE) Urine Granular Casts None seen (NONE SEEN) Urine Waxy Casts None seen (NONE SEEN) Urine Red Blood Cell Casts None seen (NONE SEEN) Urine White Blood Cell Casts None seen (NONE SEEN) Urine Mucus None seen (None Seen) Urine Trichomonas None seen (NONE SEEN) Urine Yeast None (NONE SEEN) Urinalysis Comment None Urine Culture Reflexed Not indicated Discharge Medications Discharge Medications ([diphenHYDramine]) 25 MG CAPSULE 25 MG PO HS Prescribed by: LEEROY STEPHENS MD Aripiprazole (Abilify) 10 Mg Tablet 10 MG PO DIRECTED Take 2 tablets daily for 14 days then 1 tablet daily for 14 days Prescribed by: LEEROY STEPHENS MD Aripiprazole (Abilify Maintena Inj) 400 Mg Suser.vial 400 MG AD Monthly Next due 05/26/16 Prescribed by: LEEROY STEPHENS MD Atorvastatin (Lipitor) 40 Mg Tablet 40 MG PO DAILY Prescribed by: LEEROY STEPHENS MD Glipizide (Glipizide) 10 Mg Tablet 10 MG PO BID Prescribed by: LEEROY STEPHENS MD Levothyroxine (Levothyroxine) 200 Mcg Tablet 200 MCG PO DAILY Prescribed by: LEEROY STEPHENS MD Lisinopril (Lisinopril) 5 Mg Tablet 5 MG PO DAILY Prescribed by: LEEROY STEPHENS MD Lorazepam (Ativan) 2 Mg Tablet 2 MG PO DIRECTED Take 1 tablet nightly for 14 days then 1/2 tablet nightly for 14 days and discontinue Prescribed by: LEEROY STEPHENS MD Metformin (Glucophage) 1,000 Mg Tablet 1,000 MG PO BID Prescribed by: LEEROY STEPHENS MD Omeprazole (Omeprazole) 40 Mg Capsule.dr 40 MG PO DAILY Prescribed by: LEEROY STEPHENS MD As needed ([diphenHYDramine]) 50 MG CAPSULE 50 MG PO Q6H PRN PRN For Itching Prescribed by: LEEROY STEPHENS MD Albuterol HFA (Proair HFA) 8.5 Gm Hfa.aer.ad 2 PUFFS INHALATION Q4H PRN PRN For Shortness of Breath Prescribed by: LEEROY STEPHENS MD Ibuprofen (Ibuprofen) 400 Mg Tablet 800 MG PO TID PRN PRN For Pain Prescribed by: LEEROY STEPHENS MD Lorazepam (Ativan) 1 Mg Tablet 1 MG PO BID PRN PRN For Anxiety or Agitation Prescribed by: LEEROY STEPHENS MD Temazepam (Restoril) 15 Mg Capsule 30 MG PO HS PRN PRN Insomnia Prescribed by: LEEROY STEPHENS MD Followup Plan Disposition: No indication for further hospitalization at this time, the patient was accepted by [facility] and was released on her existing 90 day less restrictive order. The patient verbally consented to take the prescribed medications. The patient verbally expressed understanding of the risks, benefits, alternative treatment options, and risks of not taking the prescribed medication. The patient verbally expressed understanding of the medication instructions, that she will adhere to the prescribed medication, and that she will go to all aftercare scheduled appointments. Follow-up plan AARTI Rdz on 05/22/16 at 09:15am [address] Jen Guy. on 05/23/16 at 09:30am [address] Kacie Beyer CNP on 06/09/16 at 1:45pm [place] [address] Discharge Diet: Diabetic Discharge Activity: No restrictions Patient Instructions Should you have any thoughts of harming yourself or others, please call the crisis line, your provider, 911, or go to the nearest Emergency Department. Do not change or discontinue your medications without discussing with your provider. You have been given a prescription for 30 days supply of your medication Leeroy Stephens MD May 19, 2016 20:17
== END 2016-05-19 11:45 | disposition home or self-care (01) | DRG 885 ==
LOC: SED 15:16 → MHC 21:56
PROVIDERS: ADMIT Psychiatry & Neurology Psychiatry; ATTEND Psychiatry & Neurology Psychiatry
DX: F31.2 Bipolar disorder, current episode manic severe with psychotic features (principal); E11.9 Type 2 diabetes mellitus without complications; E03.9 Hypothyroidism, unspecified; Z59.0 Homelessness; F43.10 Post-traumatic stress disorder, unspecified; I10 Essential (primary) hypertension; Z79.4 Long term (current) use of insulin; F19.10 Other psychoactive substance abuse, uncomplicated; Z91.14 Patient's other noncompliance with medication regimen

== ENCOUNTER 2016-05-21 04:04 | Inpatient (IN) | payer MEDICAID, OTHER ==
[~2016-05-21] VITALS: Ht 175.3 cm; Wt 90.1 kg
[~2016-05-21 04:04] MED LIST changes: +ARIP400S2 AD; -DIVA250T12 PO; +LORA-305 PO; -ONDA8TAB10 PO; +TEMA15CA3 PO
[2016-05-21 04:23] VITALS: BP 131/77; PULSE 72; RESP 16; O2SAT 97
[2016-05-21 05:23] LABS: BASOPHILS % (AUTO) 0.2 % (0-3); EOSINOPHILS % (AUTO) 3.4 % (0-5); MONOCYTES % (AUTO) 10.5 % (4-12); Mean Corpuscular Hemoglobin 28.2 pg (27.0-35.0); Mean Corpuscular Volume 83.2 fL (81-100); NEUTROPHILS % (AUTO) 62.8 % (40-74); Platelet Count 407 bil/L (150-400)
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
[2016-05-21 10:39] VITALS: BP 134/81; PULSE 80; RESP 20
[2016-05-21 10:58] VITALS: BP 135/79; PULSE 78; RESP 16; O2SAT 99
[2016-05-21 14:14] VITALS: BP 166/77; PULSE 16; RESP 18; O2SAT 99
[2016-05-21] MEDS ORDERED: Lactulose 10 Gm/15 mL 473 mL Solution PO ONE (15:05)
[2016-05-21] MEDS ORDERED: Lactulose 20 Gm/30 mL 30 mL Syrup PO ONE (15:25)
[2016-05-21] MEDS: OLANZapine Zydis ODT 5 mg Tablet PO SCH (15:52)
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
[2016-05-21] MEDS ORDERED: Albuterol HFA 60 Puff 8 Gm Inhaler INHALATION PRN (18:45)
[2016-05-21] MEDS ORDERED: ARIPiprazole 10 mg Tablet PO SCH (18:45)
[2016-05-21] MEDS ORDERED: Alum-Mag Hydrox-Simeth 30 mL Suspension PO PRN (18:50)
[2016-05-21] MEDS ORDERED: Benzocaine-Menthol Lozenge 2/Pkg PO PRN (18:50)
[2016-05-21] MEDS ORDERED: ARIPiprazole ER 400 mg Inj IM ONE (19:00)
[2016-05-21] MEDS ORDERED: LORazepam 2 mg Tablet PO SCH (19:00)
[2016-05-21] MEDS: Magnesium Hydroxide 10 mL Oral Concentration PO PRN (19:22)
[2016-05-21] MEDS: diphenhydrAMINE 25 mg Capsule PO SCH (20:35)
[2016-05-21] MEDS: LORazepam 1 mg Tablet PO PRN (20:36)
[2016-05-22] MEDS: LORazepam 1 mg Tablet PO PRN ×2 (01:18→20:45)
[2016-05-22] MEDS: Pantoprazole 40 mg ER24 Tablet PO SCH (07:34)
[2016-05-22] MEDS: OLANZapine Zydis ODT 5 mg Tablet PO SCH ×2 (07:35→08:30)
[2016-05-22] MEDS: LORazepam 1 mg Tablet PO SCH ×3 (07:35→16:33)
[2016-05-22] MEDS: ARIPiprazole 10 mg Tablet PO SCH (07:36)
[2016-05-22 09:34] VITALS: BP 160/88; PULSE 75; RESP 19
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
--- NOTE | 2016-05-22 13:07 | NUR ---
Nursing Note [id number] Behavior, Medications S/O: Pt has good appetite. B/P elevated at 160/88. Pt refused Zyprexa this morning becoming very upset talking loudly, "I don't want that fucking stuff....I was on it before & I gained so much weight....I was in a size 26....I can't take that because of my diabetes....I'm allergic to it....I've lost all that weight, & I'm not going to put it on again." Pt took all other scheduled medications. Pt able to calm down. Pt making frequent requests of staff. Pt pacing on unit. Pt demanding to talk with associate attorney as soon as associate attorney returns. A: Pt appears hypomanic. P: Provide supportive environment. Monitor medications & effects.
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
--- NOTE | 2016-05-22 13:37 | NUR ---
Obs Dayshift Pt states that she slept well but is still very tired today, not happy about some of her meds and is often demanding wanting her Dr or Yeast Culture Operator, Now! Pt is intrusive toward peers and staff. Pt is wanting to be helpful on the unit and constantly wanting to clean. Pt is edgy, but trying to be polite toward others. [facility], and states that she is happy to be back here. Loud, disruptive at times, participating, engages w/ others. Good ADL's, Good meals
--- NOTE | 2016-05-22 18:58 | NUR ---
NURSING NOTE [id number] Mood: "Just great!" *grins* Affect: hypomanic, pressured, labile Behavior: playing ping pong w/peers and staff, paced the halls, socializing w/peers. Initially refused scheduled 14:30 dose of Ativan, reporting: "it makes me too tired". 2 hrs later she was becoming quite pressured and agreed to take it at 16:30 instead. She showered. Thought processes: has continued to recount negative events that occurred at the place she previously discharged to and becomes very pressured and upset while telling those stories, as well as stories about her and daughters. She breaks down in tears when discussing her family. She is paranoid, w/delusions of persecution. PRNs/Nursing Note Ibuprofen 800 mg @ 17:17 for 08/21 knee and bilateral hip pain Dinner FSBS: 113 Addendum: 05/22/16 at 2232 by TERESA STUART RN At 20:45 the pt. had an outburst directed at another pt., BE, whom she has had hx of arguing with and lashing out at during her most recent stay here. She stood outside BE's room and banged on her door and screamed "stop calling me a fucking whore! Get out here! I am not a fucking whore!". Pt. was escorted to her room and given PRN Ativan, Temazepam, and Benadryl. Within an hour she had calmed down considerably. Continue to monitor.
[2016-05-22] MEDS: diphenhydrAMINE 25 mg Capsule PO SCH (20:45)
[2016-05-22] MEDS: diphenhydrAMINE 50 mg Capsule PO PRN (20:49)
[2016-05-23] MEDS: LORazepam 1 mg Tablet PO PRN ×3 (00:51→21:34)
--- NOTE | 2016-05-23 01:49 | NUR ---
Observations 1900 to 0700 Pt affect and behavior are the same as in her other stays here. pt was observed banging and yelling at another pt through her door. pt was escorted to her room and eventually calm down. Pt is having a hard time sleeping as usual. Pt was observed every 15 minutes through the night as directed.
[2016-05-23] MEDS: diphenhydrAMINE 50 mg Capsule PO PRN (05:33)
--- NOTE | 2016-05-23 06:41 | NUR ---
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 Slept for brief periods and would wake up with bursts of energy, labile mood, delusions of persecution and grandiosity, loud reactive and intrusive but redirectable . Pt given Resoril 15mg at 2034 and again at 0005, Vistaril 50mg at 2034 and Benadryl 50mg at 30 with limited effectiveness. She is fixated on female peer BE who reportedly has been antagonizing and needs monitored closely when they are in the same area. Monitored pt q 15 minutes for safety location and accountability.
[2016-05-23] MEDS: LORazepam 1 mg Tablet PO SCH ×2 (08:08→15:03)
[2016-05-23] MEDS: ARIPiprazole 10 mg Tablet PO SCH (08:08)
[2016-05-23] MEDS: Pantoprazole 40 mg ER24 Tablet PO SCH (08:08)
[2016-05-23 11:01] VITALS: BP 151/98; PULSE 65; RESP 16
--- NOTE | 2016-05-23 12:04 | PCM.PNPSY ---
Subjective Date of Service May 23, 2016 Subjective I spent 30 minutes both reviewing treatment plan with clinical team, interviewing the patient and providing supportive/educational psychotherapy. I spent more than 50% of the time counseling the patient the patient could only tolerate a brief interaction. I reviewed the treatment plan with the patient and discussed options available including the potential risks, benefits and side effects. Malu reports feeling fine and that she has no trouble with her thought organization or mood stability. She was superficially bright and pleasant. She had underlying intensity and pressure to both her speech and her eye contact Staff reports that she has been overstimulated on the unit and not participating well in one-to-one unit and group activities due to a tendency to frequently become angry and impulsively verbally lashing out. She slept 6 hours and denies yahaira or psychotic symptoms review but isdemonstrating multiple symptoms including distractibility pressured speech racing thoughts grandiose and paranoid delusions, a high degree of activity, and poor interpersonal boundaries. Her judgment and insight remain significantly impaired. She has a tendency to escalate first verbally and then physically. Patient was able to identify her medications and what they were used to treat. Current Medications Current Medications Aripiprazole 20 mg DAILY PO Last administered on 05/23/16 08:08; Admin Dose 20 MG; Start 05/22/16 at 08:30 Atorvastatin Calcium 40 mg DAILY PO Last administered on 05/23/16 08:09; Admin Dose 40 MG; Start 05/22/16 at 08:30 Diphenhydramine HCl 25 mg HS PO Last administered on 05/22/16 20:45; Admin Dose 25 MG; Start 05/21/16 at 21:00 Diphenhydramine HCl 50 mg Q6H PRN PO Last administered on 05/23/16 05:33; Admin Dose 50 MG; Start 05/21/16 at 19:05 Glipizide 10 mg BIDWM PO Last administered on 05/23/16 08:08; Admin Dose 10 MG ; Start 05/22/16 at 08:00 Ibuprofen 800 mg ONCE ONCE PO Last administered on 05/21/16 15:51; Admin Dose 800 MG; Start 05/21/16 at 15:40; Stop 05/21/16 at 15:41; Status DC Ibuprofen 800 mg TID PRN PO Last administered on 05/23/16 09:58; Admin Dose 800 MG; Start 05/21/16 at 18:45 Lactulose 10 gm ONCE ONCE PO Last administered on 05/21/16 15:30; Admin Dose 10 GM; Start 05/21/16 at 15:25; Stop 05/21/16 at 15:26; Status DC Levothyroxine Sodium 200 mcg DAILYAC PO Last administered on 05/23/16 08:08; Admin Dose 200 MCG; Start 05/22/16 at 07:30 Lisinopril 5 mg DAILY PO Last administered on 05/23/16 08:09; Admin Dose 5 MG; Start 05/22/16 at 08:30 Lorazepam 1 mg 1430 PO Last administered on 05/22/16 16:33; Admin Dose 1 MG; Start 05/22/16 at 14:30 Lorazepam 1 mg DAILY PO Last administered on 05/23/16 08:08; Admin Dose 1 MG; Start 05/22/16 at 08:30 Lorazepam 1 mg Q4H PRN PO Last administered on 05/23/16 10:31; Admin Dose 1 MG ; Start 05/21/16 at 18:50 Lorazepam 2 mg DIRECTED PO Last administered on 05/21/16 19:24; Admin Dose 2 MG; Start 05/21/16 at 19:00; Stop 05/21/16 at 20:05; Status DC Magnesium Hydroxide 10 ml Q12H PRN PO Last administered on 05/21/16 19:22; Admin Dose 10 ML; Start 05/21/16 at 18:50 Metformin HCl 1,000 mg BID PO Last administered on 05/23/16 08:09; Admin Dose 1 ,000 MG; Start 05/21/16 at 20:30 Olanzapine 10 mg DAILY PO Last administered on 05/21/16 15:52; Admin Dose 10 MG ; Start 05/21/16 at 15:45; Stop 05/22/16 at 12:26; Status DC Pantoprazole 40 mg 08 PO Last administered on 05/23/16 08:08; Admin Dose 40 MG ; Start 05/22/16 at 08:00 Temazepam 30 mg HS PRN PO Last administered on 05/22/16 20:44; Admin Dose 30 MG; Start 05/21/16 at 18:45 Mental Status Exam Vital Signs Vital Signs Date Time Temp Pulse Resp B/P Pulse Ox O2 Delivery O2 Flow Rate FiO2 05/23/16 11:01 36.6 65 16 151/98 Appearance: Neat/well groomed Attitude: Guarded, Uncooperative Behavior: Distractible Affect: Labile Mood: Expansive, Irritable Thought Process/Associations: Goal Directed Speech Production: Loud Speech Rate: Pressured Speech Articulation: Normal Thought Content: Suspicious Danger to Self/Suicidal Ideati: None Danger to Others: None Delusions: Paranoid (Endorses), Grandiose (Endorses) Orientation: Person, Place, Date, Situation Memory: Short Term Memory (Impaired), Ware Finisher Memory (Intact) Estimate Intellectual Function: Average Basis for IQ estimate: Awareness current events, Word use/vocabulary, Educational history Attention/Concentration & Cogn: Impaired Insight: Limited Judgement: Limited Result Diagram: 05/21/16 0515 05/21/16 0515 Mental Health Plan The patient is a 56-year-old female with a recent psychiatric hospitalization on the [facility] (admitted 05/01/2016 and discharged on 05/19/2016). She is currently presenting with multiple symptoms of bipolar mood disorder with psychosis including distractibility pressured speech racing thoughts grandiose and paranoid delusions, a high degree of activity, and poor interpersonal boundaries. Her judgment and insight remain significantly impaired. She suffers from early controlled bipolar disorder, currently expressing itself as yahaira with psychotic features. She was admitted on a revocation of a less restrictive order following failure to comply with her less restrictive order. She has been tried on a number of medications but stabilized on a combination of aripiprazole 20 mg daily and Depakote 750 mg. She started aripiprazole Maintena and was started on 400 mg on April 26, 2016. Despite discharge to [facility] on Sunday She reportedly rapidly deteriorated and presented to the emergency room on Sunday. She was unwilling to work with the [facility] team and so was referred for inpatient hospitalization and potential revocation. She has a history of multiple inpatient hospitalizations and this appears to be her th admission to the [facility] Health Center at [facility] alone. Malu reports feeling fine and that she has no trouble with her thought organization or mood stability. She was superficially bright and pleasant. She had underlying intensity and pressure to both her speech and her eye contact Staff reports that she has been overstimulated on the unit and not participating well in one-to-one unit and group activities due to a tendency to frequently become angry and impulsively verbally lashing out. She slept 6 hours and denies yahaira or psychotic symptoms review but isdemonstrating multiple symptoms including distractibility pressured speech racing thoughts grandiose and paranoid delusions, a high degree of activity, and poor interpersonal boundaries. Her judgment and insight remain significantly impaired. She has a tendency to escalate first verbally and then physically. Nathrop Nathrop I. Bipolar disorder, manic, with psychotic features, posttraumatic stress disorder, and a history of polysubstance abuse, in partial remission. Nathrop II. Deferred. Nathrop III. Hypertension, insulin-dependent diabetes mellitus, hypothyroidism, and obesity. Nathrop IV. Unknown. Nathrop V. Current Global Assessment of Functioning is 35 Medications 1. Lorazepam 1 mg twice daily 2. Abilify Maintena 400 mg IM monthly, 1st given April 26, 2016 Next dose is due 05/27/2016. 3. Aripiprazole 20 mg daily x14 additional days following injection, then discontinue. 4. Benadryl 25 mg at bedtime. 5. Lipitor 40 mg daily. 6. Glipizide 10 mg twice daily. 7. Metformin 1000 mg twice daily. 8. Levothyroxine 200 mcg daily. 9. ProAir 80 mcg metered dose inhaler as needed. 10. Lisinopril 5 mg daily. 11. Omeprazole 40 mg daily. 12. Ibuprofen 800 mg three times a day as needed. 13. She also uses Benadryl 50 mg as needed for itching. 14. Zofran for nausea Treatments Patient is being provided with a high degree of safety through the structure and active adult engagement. We will focus on developing improved coping skills and identifying stressors that may have led to current episode. We will attempt to: Integrate into therapeutic groups, milieu and individual therapy. Maintain in a closely monitored and structured unit Provide low-stimulation environment Obtain collateral data to assist in treatment planning Assess degree of lability of affect and impulse control Complete safety plan Decrease frequency of relapse and need for re-hospitalization Denies thoughts of harm to others Establish a consistent sleep pattern Medication effective in stabilization of mood and/or thought process Reduce the risk of imminent harm to self and/or others by providing a safe environment Tolerates medication without side effects Patient will be on the following psychiatric medications: Aripiprazole 20 mg daily Patient offered Depakote 750 mg but is currently refusing. Ativan 1 mg twice a day aripiprazole Maintena and was started on 400 mg on April 26, 2016. Next dose due 05/27/2016, we will plan to continue Abilify at 20 mg for an additional 14 days after next IM decanoate dose Labs: Within normal limits Education: Educate about metabolic etiologies related to obesity Address patient's legal status Patient is on a petition to revoke a 90 day LRA involuntary treatment hold. Patient will be given the opportunity to talk to her parks and recreation manager Sunday Liam Dobbins MD May 23, 2016 12:04
--- NOTE | 2016-05-23 13:15 | NUR ---
Livestock Showman./ c.m. S.:"I can be again! I have a good outfit for that reason. I can deliver babies in a ditch!..Hi handsome!.." O.: met with pt. to complete her Treatment plan and goals. She was wearing a light, stretching top that she even stretched more to show ad writer how big she could be if she was . She was talking in a loud voice trying to engage other peers in the conversation. She agreed to work on Treatment plan and goals and said that her goal would be to go to [facility]. She wrote a lot of comments on her Treatment plan and goals and included a picture of a smily face at the end. She was very proud of herself. She also was watching peers and staff around. She noticed a group of people, mostly men walking through the unit together with a director of pulmonary unit. Pt. wanted to get an attention and she called one of them - "Hi handsome!" She didn't sleep well last night. She denied SI/HI, denied AH/VH, denied depression or anxiety. She said that she was in a "great mood". [facility]. PACT c.m. was hoping to get pt. into [facility] or at least to get 90 - 180 LRO. She was going to fax paper from [employer] in support for their request. A.: pt. is cooperative, intrusive, loud, has poor boundaries. She is unpredictable in her behavior. P.: monitor behavior, monitor meds intake, provide safety in the unit, court tomorrow for revocation of 90 LRO; follow care plan.
--- NOTE | 2016-05-23 16:17 | NUR ---
Nursing: Day shift: S: "You can be the mother at my wedding." "I am very smart. I could be a psychiatrist." O: Teresas behavior has varied between cooperative, directable behavior to angry, agitated activity. She was trembling, talking with loud pressured speech, and complaining about a peer's behavior about 1000. Requested and received Ativan 1 mg at 1030 for "10/10" anxiety. By 1200 stated it was reduced to 5/10. [place] [address] for leg pain and 'it helped." during the afternoon, she rested in her bed, and by dinner was more calm. A: Remains pressured, grandiose. P: Continue to observe closely for safety of pt and others. Addendum: 05/23/16 at 1755 by RENITA HARTMANN RN Amended: Links added.
[2016-05-23] MEDS: Magnesium Hydroxide 10 mL Oral Concentration PO PRN (19:35)
[2016-05-23] MEDS: diphenhydrAMINE 25 mg Capsule PO SCH (20:40)
[2016-05-24] MEDS: diphenhydrAMINE 50 mg Capsule PO PRN ×2 (01:26→23:13)
--- NOTE | 2016-05-24 02:22 | NUR ---
Observations 1900 to 0700 Pt affect and behavior are the same as in her other stays here. Pt is hyper sexual and should be watched around male Pt's and staff. Pt is having a hard time sleeping as usual. Pt first appeared asleep at 23:30 was observed every 15 minutes through the night as directed.
[2016-05-24] MEDS: LORazepam 1 mg Tablet PO PRN ×2 (02:53→20:25)
--- NOTE | 2016-05-24 05:36 | NUR ---
Nursing Noc Pt up most of the evening exercising throughout the unit. Has appeared by Q15 minute safety checks to have slept very poorly. Pt to window requesting a increase in sleeping medication because. "I'm starting to feel giddy" r/t not sleeping. Pt appears hypersexual and paranoid.
[2016-05-24] MEDS: LORazepam 1 mg Tablet PO SCH ×3 (07:47→14:30)
[2016-05-24] MEDS: Pantoprazole 40 mg ER24 Tablet PO SCH (07:47)
[2016-05-24] MEDS: ARIPiprazole 10 mg Tablet PO SCH (07:47)
--- NOTE | 2016-05-24 12:56 | PCM.PNPSY ---
Subjective Date of Service May 24, 2016 Subjective I spent 30 minutes both reviewing treatment plan with clinical team, interviewing the patient and providing supportive/educational psychotherapy. I spent more than 50% of the time counseling As Vioelt was able to tolerate the entire session. It was actually quite delightful as she was able to share Some of her grief and loss issues relative multiple episodes of betrayal in her past. She became tearful in an appropriate manner Several times during our talk. Malu reports some improvement in her thought organization and mood stability. She was genuinely pleasant. She had no pressured speech and her eye contact was appropriate. Staff reports that she has been overstimulated on the unit but is participating well in one-to-one unit and group activities. She slept 3 hours and denies yahaira or psychotic symptoms review. She had a marked decrease in the intensity of symptoms Patient was able to identify her medications and what they were used to treat. Mental Status Exam Appearance: Neat/well groomed Attitude: Pleasant, Cooperative Behavior: No unusual behavior Affect: Well Modulated/Appropriate Mood: Dysthymic Thought Process/Associations: Goal Directed Speech Production: Normal Speech Rate: Normal Speech Articulation: Normal Thought Content: Appropriate Danger to Self/Suicidal Ideati: None Danger to Others: None Consciousness: Alert Orientation: Person, Place, Date, Situation Memory: Grossly Intact Estimate Intellectual Function: Average Basis for IQ estimate: Awareness current events, Word use/vocabulary, Educational history Attention/Concentration & Cogn: Impaired Insight: Limited Judgement: Limited Result Diagram: 05/21/16 0515 05/21/16 0515 Mental Health Plan The patient is a 56-year-old female with a recent psychiatric hospitalization on the [facility] (admitted 05/01/2016 and discharged on 05/19/2016). She is currently presenting with multiple symptoms of bipolar mood disorder with psychosis including distractibility pressured speech racing thoughts grandiose and paranoid delusions, a high degree of activity, and poor interpersonal boundaries. Her judgment and insight remain significantly impaired. She suffers from early controlled bipolar disorder, currently expressing itself as yahaira with psychotic features. She was admitted on a revocation of a less restrictive order following failure to comply with her less restrictive order. She has been tried on a number of medications but stabilized on a combination of aripiprazole 20 mg daily and Depakote 750 mg. She started aripiprazole Maintena and was started on 400 mg on April 26, 2016. Despite discharge to [facility] on Sunday She reportedly rapidly deteriorated and presented to the emergency room on Sunday. She was unwilling to work with the [facility] team and so was referred for inpatient hospitalization and potential revocation. She has a history of multiple inpatient hospitalizations and this appears to be her 13th admission to the [facility] alone. Malu had a significant shift in mood and attitude today. She was honest and open about her feelings. She had appropriate tearfulness and was able to process During our one-to-one session. Malu made a significant shift towards health today. [place] I. Bipolar disorder, manic, with psychotic features, posttraumatic stress disorder, and a history of polysubstance abuse, in partial remission. [place] II. Deferred. [place] III. Hypertension, insulin-dependent diabetes mellitus, hypothyroidism, and obesity. [place] IV. Unknown. [place] V. Current Global Assessment of Functioning is 35 Medications 1. Lorazepam 1 mg twice daily 2. Abilify Maintena 400 mg IM monthly, 1st given April 26, 2016 Next dose is due 05/27/2016. Pharmacy tells me that this is not on our hosp pharmacy 3. Aripiprazole 20 mg daily 4. Benadryl 25 mg at bedtime. 5. Lipitor 40 mg daily. 6. Glipizide 10 mg twice daily. 7. Metformin 1000 mg twice daily. 8. Levothyroxine 200 mcg daily. 9. ProAir 80 mcg metered dose inhaler as needed. 10. Lisinopril 5 mg daily. 11. Omeprazole 40 mg daily. 12. Ibuprofen 800 mg three times a day as needed. 13. She also uses Benadryl 50 mg as needed for itching. 14. Zofran for nausea Treatments Patient is being provided with a high degree of safety through the structure and active adult engagement. We will focus on developing improved coping skills and identifying stressors that may have led to current episode. We will attempt to: Integrate into therapeutic groups, milieu and individual therapy. Maintain in a closely monitored and structured unit Provide low-stimulation environment Obtain collateral data to assist in treatment planning Assess degree of lability of affect and impulse control Complete safety plan Decrease frequency of relapse and need for re-hospitalization Denies thoughts of harm to others Establish a consistent sleep pattern Medication effective in stabilization of mood and/or thought process Reduce the risk of imminent harm to self and/or others by providing a safe environment Tolerates medication without side effects Patient will be on the following psychiatric medications: Aripiprazole 20 mg daily Patient offered Depakote 750 mg but is currently refusing. Ativan 1 mg twice a day aripiprazole Maintena and was started on 400 mg on April 26, 2016. Next dose due 05/27/2016, we will plan to continue Abilify at 20 mg for an additional 14 days after next IM decanoate dose Labs: Within normal limits Education: Educate about metabolic etiologies related to obesity Address patient's legal status petition to revoke a 90 day [facility] involuntary treatment hold granted today. Disposition: [facility] for long-term care Liam Dobbins MD May 24, 2016 12:56
--- NOTE | 2016-05-24 16:52 | NUR ---
[id number]. nurs. S: "I'm all calm as easy as it can be... O: Pt screaming loudly and not directable when asked to move away from area where another peer acting violently, pt wanting to insert herself and escalating situation with her loud screaming acting out behaviour, pt had received prescribed meds prior to event except ativan as refused it stating I would rather have it before I try to take a nap later. Pt calmed and regained control and did then accept offered ativan 1mg later. Pt's OT 106 in am and pt paying close attention to her weight ,fitness and exercise. Pt continues to be busy on unit with some interaction with peers, some intrusiveness ,but also some boundaries with another hypomanic peer. Pt attended court and appeared in in agreement with outcome. P:JULIANNA
[2016-05-24 17:41] VITALS: BP 108/61; PULSE 66; RESP 18
--- NOTE | 2016-05-24 17:58 | NUR ---
Counseling/[employer]: S/O: Patient only slept 2.75 hours last night per staff. She denies S/I and H/I. She denies auditory an visual hallucinations. Depression is 0/10 and anxiety is 0/10. When asked her mood, patient stated, "Sad." A: Patient is cooperative, pleasant, dysthymic, limited insight, limited judgment. P: Follow care plan, coordinate out-patient providers.
[2016-05-24] MEDS: diphenhydrAMINE 25 mg Capsule PO SCH (20:25)
--- NOTE | 2016-05-24 21:32 | NUR ---
PRN medication Pt pressured, angry and yelling during the evening hours. She was demanding "I want popcorn! I like popcorn!" Pt offered and accepted Ativan 1mg po prn @ 2024 for agitation. She also was given Restoril 30 mg po prn for sleep stating "I need more sleep. I am not sleeping enough!" Pt currently calmer and eating snacks with a peer at the dining room table. Oncoming shift to assess sleep cycle through the night.
[2016-05-25] MEDS: LORazepam 1 mg Tablet PO PRN ×3 (00:13→21:50)
--- NOTE | 2016-05-25 03:26 | NUR ---
Nursing Noc Pt attempted to sleep a few times this shift with approximately 30 minutes of uninterrupted sleep noted. Pt reports increased irritability this shift and was noted to be yelling obscenities in the middle of the night saying get me a shot or give me some Ativan. Continuing to monitor mood behavior and emotional state. CP
[2016-05-25] MEDS: diphenhydrAMINE 50 mg Capsule PO PRN ×2 (07:50→21:49)
[2016-05-25] MEDS: Pantoprazole 40 mg ER24 Tablet PO SCH (07:50)
[2016-05-25] MEDS: ARIPiprazole 10 mg Tablet PO SCH (07:53)
[2016-05-25] MEDS: LORazepam 1 mg Tablet PO SCH ×2 (08:30→14:34)
[2016-05-25 09:40] VITALS: BP 158/95; PULSE 67; RESP 16
--- NOTE | 2016-05-25 13:58 | PCM.PNPSY ---
Subjective Date of Service May 25, 2016 Subjective I spent 30 minutes both reviewing treatment plan with clinical team, interviewing the patient and providing supportive/educational psychotherapy. I spent more than 50% of the time counseling Malu was able to tolerate the entire session. She shared grief and loss issues related to multiple episodes of betrayal in her past. Malu reports some improvement in her thought organization and mood stability. She was genuinely pleasant. She had no pressured speech and her eye contact was appropriate. Staff reports that she has been overstimulated on the unit due to recent agitation and other patients. During these times Malu tends to have a period of time where she is irritable agitated and intrusive. The frequencies of these events has been decreasing. She slept 3 hours and denies yahaira or psychotic symptoms review. She had a marked decrease in the intensity of symptoms. Patient was able to identify her medications and what they were used to treat. Current Medications Mental Status Exam Appearance: Neat/well groomed Attitude: Pleasant, Cooperative Behavior: No unusual behavior Affect: Well Modulated/Appropriate Mood: Euthymic Thought Process/Associations: Goal Directed Speech Production: Normal Speech Rate: Normal Speech Articulation: Normal Thought Content: Appropriate Danger to Self/Suicidal Ideati: None Danger to Others: None Consciousness: Alert Orientation: Person, Place, Date, Situation Memory: Grossly Intact Estimate Intellectual Function: Average Basis for IQ estimate: Awareness current events, Word use/vocabulary, Educational history Attention/Concentration & Cogn: Impaired Insight: Limited Judgement: Limited Result Diagram: 05/21/16 0515 05/21/16 0515 Mental Health Plan The patient is a 56-year-old female with a recent psychiatric hospitalization on the [facility] (admitted 05/01/2016 and discharged on 05/19/2016). She is currently presenting with multiple symptoms of bipolar mood disorder with psychosis including distractibility pressured speech racing thoughts grandiose and paranoid delusions, a high degree of activity, and poor interpersonal boundaries. Her judgment and insight remain significantly impaired. She suffers from early controlled bipolar disorder, currently expressing itself as yahaira with psychotic features. She was admitted on a revocation of a less restrictive order following failure to comply with her less restrictive order. She has been tried on a number of medications but stabilized on a combination of aripiprazole 20 mg daily and Depakote 750 mg. She started aripiprazole Maintena and was started on 400 mg on April 26, 2016. Despite discharge to [facility] on Sunday She reportedly rapidly deteriorated and presented to the emergency room on Sunday. She was unwilling to work with the [facility] team and so was referred for inpatient hospitalization and potential revocation. She has a history of multiple inpatient hospitalizations and this appears to be her 13th admission to the [facility] at [facility] alone. Malu had a significant shift in mood and attitude for the past 48 hours. She has been honest and open about her feelings. She had appropriate tearfulness and was able to process During our one-to-one session. Malu is making significant shift towards health. [place] I. Bipolar disorder, manic, with psychotic features, posttraumatic stress disorder, and a history of polysubstance abuse, in partial remission. [place] II. Deferred. [place] III. Hypertension, insulin-dependent diabetes mellitus, hypothyroidism, and obesity. [place] IV. Unknown. [place] V. Current Global Assessment of Functioning is 35 Medications 1. Lorazepam 1 mg twice daily 2. Abilify Maintena 400 mg IM monthly, 1st given April 26, 2016 Next dose is due 05/27/2016. Pharmacy tells me that this is not on our hosp pharmacy the pact team from [facility] carries her IM Abilify and has agreed to bring this in. 3. Aripiprazole 20 mg daily 4. Benadryl 25 mg at bedtime. 5. Lipitor 40 mg daily. 6. Glipizide 10 mg twice daily. 7. Metformin 1000 mg twice daily. 8. Levothyroxine 200 mcg daily. 9. ProAir 80 mcg metered dose inhaler as needed. 10. Lisinopril 5 mg daily. 11. Omeprazole 40 mg daily. 12. Ibuprofen 800 mg three times a day as needed. 13. She also uses Benadryl 50 mg as needed for itching. 14. Zofran for nausea Treatments Patient is being provided with a high degree of safety through the structure and active adult engagement. We will focus on developing improved coping skills and identifying stressors that may have led to current episode. We will attempt to: Integrate into therapeutic groups, milieu and individual therapy. Maintain in a closely monitored and structured unit Provide low-stimulation environment Assess degree of lability of affect and impulse control Complete safety plan Decrease frequency of relapse and need for re-hospitalization Denies thoughts of harm to others Establish a consistent sleep pattern Medication effective in stabilization of mood and/or thought process Reduce the risk of imminent harm to self and/or others by providing a safe environment Tolerates medication without side effects Patient will be on the following psychiatric medications: Aripiprazole 20 mg daily Patient offered Depakote 750 mg but is currently refusing. Ativan 1 mg twice a day aripiprazole Maintena and was started on 400 mg on April 26, 2016. Next dose due 05/27/2016, we will plan to continue Abilify at 20 mg for an additional 14 days after next IM decanoate dose Labs: Within normal limits Education: Educate about metabolic etiologies related to obesity Address patient's legal status petition to revoke a 90 day MR involuntary treatment hold granted today, . Disposition: [facility] for long-term care versus [place] transitions through [facility] which is still holding a bed for her Liam Dobbins MD May 25, 2016 13:58
--- NOTE | 2016-05-25 14:10 | NUR ---
[id number]. nurs. S/O: "I'm sorry, but I don't trust anyone, I have been screwed over by a lot of people a lot of times" Pt quickly labile, irritable, and was given 1mg of ativan by noc. staff at 0601 and continued easily stimulated and agitated, intrusive with negative opinions on peer's med regimens, pt would apologize and able to calm, refocus on own craft project but continued to be loud, pressured and tense. Pt given benedryl 50mg at 0750 for itching. Pt given motrin 800mg for hip pain at 0956, and reported some relief initially and then later reported that she was having more back hip and leg pain requested tylenol 650mg at approx 1515 and given at that time. Pt also requesting ativan at 1430 and given sheduled dose at that time. Pt vigilant around unit and quickly gets excited and loud with small stimulus. Pt has stated prev and today that goals were....save children, grandchildren and all babies... to get the hell out of here..." A: loud ,restless, busy ,tangential, pressured easily agitated, was able to ask for medication for anxiety, and pain pxs. P:CNCP
--- NOTE | 2016-05-25 18:12 | NUR ---
Counseling/Early Learning Teacher: S/O: Patient only slept 3 hours last night per staff. She denies S/I and H/I. She denies auditory an visual hallucinations. Depression is 0/10 and anxiety is 0/10. When asked her mood, patient stated, "Sad, I miss my children." A: Patient is cooperative, pleasant, dysthymic, paranoid, limited insight, limited judgment. P: Follow care plan, coordinate out-patient providers.
--- NOTE | 2016-05-25 18:45 | NUR ---
[facility] Day Shift Pt has difficulty maintaining behavioral control throughout the shift. Pt affect appears labile. Pt spends most of the shift restlessly wandering the unit, engaging in unit activities and attempting to engage with staff and peers. Pt is generally appropriate during interactions, but is occasionally belligerent and hostile, requiring firm redirection. Pt has difficulty participating in community meeting and group activities, unable to focus for extended periods of time without becoming upset. Pt attended all meals and ate approx 100% of all meals.
[2016-05-25] MEDS: diphenhydrAMINE 25 mg Capsule PO SCH (20:36)
[2016-05-26] MEDS: LORazepam 1 mg Tablet PO PRN ×3 (01:12→20:57)
--- NOTE | 2016-05-26 04:39 | NUR ---
nursing, nights, 11-7 s- i'm cold, check my blood sugar, can i have some tylenol ? ativan ? thanks. he's sick. you have to do something. check his blood sugar. ok that will help. can i have some motrin. thank you. ok i'll try. o- has appeared to sleep after 2300. up at 0033. received 650 mg of tylenol and 1 mg ativan at 0110. asleep after 0145. up at 0330. received 800 mg of motrin at 0440. currently socializing with a peer in the dinning room. assessed q 15 minutes. a- interrupted/inadequate sleep, labile at times, no threats, demanding and intrusive at times, no apparent physical distress. p- monitor behavior/emotional state, quality, times and amount of sleep, use and effect of medication. yolanda Addendum: 05/26/16 at 0508 by NIALL PORTILLO RN blood sugar at 0030 is 101. yolanda
[2016-05-26] MEDS: ARIPiprazole 10 mg Tablet PO SCH (07:58)
[2016-05-26] MEDS: Pantoprazole 40 mg ER24 Tablet PO SCH (07:58)
[2016-05-26] MEDS: LORazepam 1 mg Tablet PO SCH ×2 (08:26→14:08)
[2016-05-26] MEDS ORDERED: ARIPiprazole ER 400 mg Inj IM ONE (09:00)
[2016-05-26] MEDS ORDERED: ARIPIPRAZOLE 400 MG IM ONE (12:00)
--- NOTE | 2016-05-26 12:48 | PCM.PNPSY ---
Subjective Date of Service May 26, 2016 Subjective I spent 30 minutes both reviewing treatment plan with clinical team, interviewing the patient and providing supportive/educational psychotherapy. I spent more than 50% of the time counseling Malu was able to tolerate the entire session. 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 Malu reports improvement in her thought organization and mood stability. She was genuinely pleasant. She was pressured in her speech when talking about past betrayals . Her eye contact typically intense and provocative was appropriate. Staff reports that she has been overstimulated on the unit due to recent agitation and other patients. During these times Malu tends to have a period of time where she is irritable agitated and intrusive. The frequencies of these events has been decreasing. She slept 2hours and declines offers to change medications to improve her sleep or to help with stabilization. She had a decrease in the intensity of symptoms remains pressured in speech and thought. Mental Status Exam Appearance: Neat/well groomed Attitude: Pleasant, Cooperative Behavior: No unusual behavior Affect: Well Modulated/Appropriate Mood: Dysthymic Thought Process/Associations: Goal Directed, Tangential Speech Production: Normal Speech Rate: Normal Speech Articulation: Normal Thought Content: Appropriate Danger to Self/Suicidal Ideati: None Danger to Others: None Consciousness: Alert Orientation: Person, Place, Date, Situation Memory: Grossly Intact Estimate Intellectual Function: Average Basis for IQ estimate: Awareness current events, Word use/vocabulary, Educational history Attention/Concentration & Cogn: Impaired Insight: Limited Judgement: Limited Result Diagram: 05/21/16 0515 05/21/16 0515 Mental Health Plan The patient is a 56-year-old female with a recent psychiatric hospitalization on the [facility] (admitted 05/01/2016 and discharged on 05/19/2016). She is currently presenting with multiple symptoms of bipolar mood disorder with psychosis including distractibility pressured speech racing thoughts grandiose and paranoid delusions, a high degree of activity, and poor interpersonal boundaries. Her judgment and insight remain significantly impaired. She suffers from early controlled bipolar disorder, currently expressing itself as yahaira with psychotic features. She was admitted on a revocation of a less restrictive order following failure to comply with her less restrictive order. She has been tried on a number of medicationsbut stabilized on a combination of aripiprazole 20 mg daily and Depakote 750 mg. She started aripiprazole Maintena and was started on 400 mg on April 26, 2016. Despite discharge to [facility] on Sunday She reportedly rapidly deteriorated and presented to the emergency room on Sunday. She was unwilling to work with the [facility] team and so was referred for inpatient hospitalization and potential revocation. She has a history of multiple inpatient hospitalizations and this appears to be her 13th admission to the [facility]. Malu had a significant shift in mood and attitude for the past 72 hours. She has been honest and open about her feelings. She had appropriate tearfulness and was able to process During our one-to-one session. She has had several outbursts on the unit when there tends to be high tension with other patients. The frequencies of these events has been decreasing. She slept 2hours and declines offers to change medications to improve her sleep or to help with stabilization. She had a decrease in the intensity of symptoms remains pressured in speech and thought. Bendena Bendena I. Bipolar disorder, manic, with psychotic features, posttraumatic stress disorder, and a history of polysubstance abuse, in partial remission. Bendena II. Deferred. Bendena III. Hypertension, insulin-dependent diabetes mellitus, hypothyroidism, and obesity. Bendena IV. Unknown. Bendena V. Current Global Assessment of Functioning is 35 Medications 1. Lorazepam 1 mg twice daily 2. Abilify Maintena 400 mg IM monthly, 1st given April 26, 2016 Next dose is due 05/27/2016. Pharmacy tells me that this is not on our hosp pharmacy the pact team from [facility] carries her IM Abilify and has agreed to bring this in. 3. Aripiprazole 20 mg daily 4. Benadryl 25 mg at bedtime. 5. Lipitor 40 mg daily. 6. Glipizide 10 mg twice daily. 7. Metformin 1000 mg twice daily. 8. Levothyroxine 200 mcg daily. 9. ProAir 80 mcg metered dose inhaler as needed. 10. Lisinopril 5 mg daily. 11. Omeprazole 40 mg daily. 12. Ibuprofen 800 mg three times a day as needed. 13. She also uses Benadryl 50 mg as needed for itching. 14. Zofran for nausea Treatments Patient is being provided with a high degree of safety through the structure and active adult engagement. We will focus on developing improved coping skills and identifying stressors that may have led to current episode. We will attempt to: Integrate into therapeutic groups, milieu and individual therapy. Maintain in a closely monitored and structured unit Provide low-stimulation environment Assess degree of lability of affect and impulse control Complete safety plan Decrease frequency of relapse and need for re-hospitalization Denies thoughts of harm to others Establish a consistent sleep pattern Medication effective in stabilization of mood and/or thought process Reduce the risk of imminent harm to self and/or others by providing a safe environment Tolerates medication without side effects Patient will be on the following psychiatric medications: Aripiprazole 20 mg daily Patient offered Depakote 750 mg but is currently refusing. Ativan 1 mg twice a day aripiprazole Maintena and was started on 400 mg on April 26, 2016. Next dose due 05/27/2016, we will plan to continue Abilify at 20 mg for an additional 14 days after next IM decanoate dose Labs: Within normal limits Education: Educate about metabolic etiologies related to obesity Address patient's legal status petition to revoke a 90 day MR involuntary treatment hold granted today, . Disposition: [facility] for long-term care versus [facility] through [facility] which is still holding a bed for her Liam Dobbins MD May 26, 2016 12:48
--- NOTE | 2016-05-26 14:40 | NUR ---
NURS Day "I'm on top of the world." Pt presents with pressured speech, emotional lability, hyperverbosity, and elevated energy/activity. Pt was witnessed doing high kicks in dining room and running in hallways. Pt participated in guided meditation group in which she was seen laying on a yoga mat on the floor, appeared calm. Pt interacted appropriately with therapeutic dog. Given 400 mg aripiprazole (Abilify) long acting injection IM. No PRNs.
--- NOTE | 2016-05-26 15:07 | NUR ---
Counseling/Clinical Sociologist: S: "I need some mucinex, I have a cold. My hip hurts and I wake up during the night." O: Patient only had 2 hours of broken sleep last night per staff. She denies S/I and H/I. She denies auditory an visual hallucinations. Depression is "yes I have a little depression because I miss my children and grandchildren," and anxiety is 4/10. When asked her mood, patient stated, "I'm pissed off." A: Patient is cooperative, pleasant, dysthymic, tearful, irritable at times, limited insight, limited judgment. P: Follow care plan, coordinate out-patient providers, monitor behavior. Addendum: 05/26/16 at 1648 by [facility] [place] Patient still has a bed at [facility] as per [facility]. Patient stated that she wants to go back to [facility] upon discharge, not [facility].
[2016-05-26 17:53] VITALS: BP 143/89; PULSE 79; RESP 16
--- NOTE | 2016-05-26 18:02 | NUR ---
Observations 0900 to 2130 Pt affect and mood was labile, agitated, unfriendly to overfriendly, bright, manic, limited insight and poor boundaries. Pt speech and eye contact was ok. Pt was out of her room most of the shift. Pt attended meals in D.R. and ate 100% of her meals. Pt maintained behavior throughout the shift. Pt was polite at times and rude other times. Pt is social with staff and peers, inappropriate at times and needs staff redirection. Pt attended group and unit activities. Pt was observed every 15 minutes throughout the shift as ordered.
[2016-05-26] MEDS: diphenhydrAMINE 25 mg Capsule PO SCH (21:00)
--- NOTE | 2016-05-26 23:40 | NUR ---
Nurses Note Evening Patient remains hyperverbal,hyperactive with elevated volume to her voice and increased lability in mood. She remains medication compliant. She has not been confrontative with peers this shift. She remains medication compliant without adverse effects. Will maintain q 15min. checks for safety and support. Addendum: 05/26/16 at 4864 by SUZETTE VALDES RN Amended: Links added.
[2016-05-27] MEDS: LORazepam 1 mg Tablet PO PRN ×5 (00:45→21:42)
[2016-05-27] MEDS: diphenhydrAMINE 50 mg Capsule PO PRN ×2 (02:36→23:56)
--- NOTE | 2016-05-27 05:04 | NUR ---
nursing, nights, 11-7 s- no i'm allergic to that. can i have some ativan. i'm achy. i think i have a cold. i can't believe she said that. ok i understand. i'm trying to be nice to her. ok i'll try it. my hip aches and i need to sleep. can i have some cheese if i go to bed. thank you o- has appeared to sleep after 2245 to 0030. pacing lam and talking to whoever is available. received 1 mg of ativan at 0040. continued to pace and talk. became disruptive at one point but responded well to staff. received 50 mg of benadryl at 0230. appeared to sleep after 0300 to 0430. received 650 mg of tylenol and 1 mg of ativan. had a snack and went to bed. is currently lying quietly in bed. assessed q 15 minutes. a- interrupted/inadequate sleep, intrusive, labile, medication helpful. p- monitor behavior/emotional state, quality, times and amount of sleep, use and effect of medication. yolanda
--- NOTE | 2016-05-27 05:09 | NUR ---
NOC observations - Pt mostly in elevated, pleasant mood with short periods of anger. Noted feeling congested and achy. Walking unit much of evening with very limited sleep of only 3.5 broken hours of sleep. Observed Q15 as ordered.
[2016-05-27] MEDS: Pantoprazole 40 mg ER24 Tablet PO SCH (07:46)
[2016-05-27] MEDS: ARIPiprazole 10 mg Tablet PO SCH (07:46)
[2016-05-27] MEDS: LORazepam 1 mg Tablet PO SCH ×2 (08:30→14:30)
[2016-05-27 12:00] VITALS: BP 125/81; PULSE 75; RESP 16
--- NOTE | 2016-05-27 12:29 | PROG NOTE ---
[address] [address] PROGRESS NOTE PATIENT: COLE REID : 1960 MR#: [id number] ADMIT: 05/21/2016 JOB ID: [id number] DATE: 05/27/2016 IDENTIFICATION: A 56-year-old, lady hospitalized involuntary on this unit on May 21, 2016. DIAGNOSES: AXIS I Bipolar, depressed, with psychosis. AXIS III 1. Hypothyroidism. 2. Hyperlipidemia. 3. Noninsulin-dependent diabetes mellitus. 4. Gastroesophageal reflux disease. MEDICATIONS: 1. Abilify 20 mg a day. 2. She received Abilify Maintena of 400 mg yesterday. 3. Lorazepam 1 mg a day. NARRATIVE: The patient is seen and discussed with staff. Still a little bit of an issue with sleep that she tends to minimize. Ativan helps with that. She also has Vistaril p.r.n. Apparently, she was discharged and returned after she had been at the transitional housing for a day but she agrees to go now saying, "I was just scared being in a new place." She verbalized the need for ongoing meds. Denies any intent to harm herself or others. Contracts for safety. Like I said, other than anxiety which interfered with sleep onset, she is overall doing better. Continue meds as they are. Continue to educate her regarding management of anxiety with relaxation techniques. Encouraged her to participate in groups. No acute pain issues.
[2016-05-27] MEDS ORDERED: ARIPiprazole ER 400 mg Inj IM ONE (12:50)
--- NOTE | 2016-05-27 14:04 | NUR ---
Lens Mold Setter./ c.m. S.:"Medicine is working great!" O.: met with pt. and MD together in pt.'s room. She was in and out of her room during the day. She didn't sleep well last night (per staff), but she reported "good sleep and feeling rested." She denied SI/HI, denied AH/VH or paranoid/delusional thoughts. She said that she would like to go back to [facility] after discharge from here. "I want to give it another try. It's a cute little place." She was talking to everybody who was around her. She believes that meds are working well for her. A.: pt. is cooperative, pleasant, very talkative, has poor boundaries and poor insight. P.: monitor behavior, provide safety in the unit, follow care plan.
--- NOTE | 2016-05-27 15:06 | NUR ---
day shift nursing note S/O-"Can I have an Ativan later so I can take a nap?,... I did not sleep well last night." Pt. has been happy and cooperative with staff and peers. She has not needed redirection. She is hyperverbal at times but is not intrusive. She denies depression, hallucinations, SI or HI. She has had a good appetite. She enjoys working on crafts in the rec room. She attends all groups. She likes to walk the hallways. A-Hypomanic at times. Needs to work on boundaries. Lack of insight. P-Support. Monitor for safety per protocol. Teach calming techniques to deal with anxiety. Assess efficacy of meds to decrease hypomania and enhance sleep.
--- NOTE | 2016-05-27 15:15 | NUR ---
Prn meds 1 Ativan given PO at 1010 and again at 1456 for anxiety rated at 7/10 and 6/10 respectively. Pt. reported it is helpful for her anxiety.
[2016-05-27] MEDS: diphenhydrAMINE 25 mg Capsule PO SCH (21:42)
[2016-05-27] MEDS: Benzocaine-Menthol Lozenge 2/Pkg PO PRN (22:45)
[2016-05-27] MEDS: guaiFENesin 20 mg/mL 10 mL Syrup PO PRN (22:46)
--- NOTE | 2016-05-27 23:00 | NUR ---
Nurses Note Evening Patient remains labile. She has been easily agitated and then brought to tears over conversations. She has been medication compliant but without much improvement. Patient has had poor sleep last evening with frequent awakenings. Will continue to encourage improved insight into illness and management of same. Addendum: 05/27/16 at 2346 by SUZETTE VALDES RN Amended: Links added.
--- NOTE | 2016-05-28 02:39 | NUR ---
Observations 1900 to 0700 Pt affect and behavior are the same as in her other stays here. Pt is having a hard time sleeping as usual. Pt first appeared asleep at 23:15 was observed every 15 minutes through the night as directed.
[2016-05-28] MEDS: LORazepam 1 mg Tablet PO PRN ×3 (02:51→23:22)
[2016-05-28] MEDS: guaiFENesin 20 mg/mL 10 mL Syrup PO PRN ×2 (03:15→17:42)
--- NOTE | 2016-05-28 04:04 | NUR ---
nursing, nights, 11-7 s- it's 230 and i need to go back to sleep. can you get my cloths so they don't wrinkle. i've been hurt a lot. at work and my . can i have some cough syrup. can i walk a little bit. thank you. o- has appeared to sleep after 2315. up at 0235. received 1 mg of ativan at 0250. returned to bed. up at 0315 and received cough syrup. returned to bed and appeared to sleep after 0400. assessed q 15 minutes. a- sleep somewhat improved, less manic, pleasant, mood stable, no apparent distress. p- monitor behavior/emotional state, quality, times and amount of sleep, use and effect of medication. yolanda
[2016-05-28] MEDS: ARIPiprazole 10 mg Tablet PO SCH (07:39)
[2016-05-28] MEDS: LORazepam 1 mg Tablet PO SCH ×2 (07:39→16:58)
[2016-05-28] MEDS: Pantoprazole 40 mg ER24 Tablet PO SCH (07:40)
[2016-05-28 08:38] VITALS: BP 162/92; PULSE 74; RESP 16
--- NOTE | 2016-05-28 10:06 | PROG NOTE ---
[address] [address] PROGRESS NOTE PATIENT: COLE REID : 1960 MR#: [id number] ADMIT: 05/21/2016 JOB ID: [id number] DATE: 05/28/2016 IDENTIFICATION: A 56-year-old, lady hospitalized involuntarily on this unit on May 21, 2016. DIAGNOSIS: AXIS IBipolar 1 manic with psychosis AXIS III1. Hypothyroidism 2. Hyperlipidemia 3. Non-insulin dependent diabetes mellitus 4. Gastroesophageal reflux disease. MEDICATIONS: 1. Abilify 20 mg a day. 2. Lorazepam p.r.n. 3. Abilify Maintena on the 400 mg. Patient seen and discussed with staff. Still hyperverbal, still intrusive, but easy to redirect. No spontaneous delusions. No hallucinatory behavior. No current intent or plan of self-harm. Contracts for safety. Denies access to firearms. She required several Ativan p.r.n. during the day and then Restoril to help her with sleep at night. She had symptoms of upper respiratory infection. We gave her Robitussin to treat it symptomatically. She is afebrile. At this point, she may need further adjustment of the Abilify or may be exploring another mood stabilizer if she agrees to try one. We will continue to educate her regarding the nature of the illness, need for mood stabilizer, therapy, and reality testing. Encouraged her to participate in the treatment modalities of the unit and encourage minimal use of benzos.
--- NOTE | 2016-05-28 12:16 | NUR ---
Recovery Assistant./ c.m. S.:"Don't touch it! There are a lot of germs around. There are bugs on a floor... I was cleaning everywhere..." O.: pt. was cleaning in the Dining room since bread baker. She didn't sleep well but she felt "great". She made comments above to her peers who were sitting in the Dining room. She denied SI/HI, denied AH/VH or paranoid/delusional thoughts. She denied depression or anxiety. She didn't like to have "germs around" her so she asked staff for a cleaning supply. She spent a lot of time in a public area talking to different peers occasionally. She was upset with MD when he mentioned to her lots of PRN. She said: "I didn't take that much. You need to check it out." A.: pt. is cooperative, pleasant, social with peers, has a bright affect. She looks anxious, paranoid and restless at times. P.: monitor behavior, provide safety in the unit, monitor meds intake; follow care plan.
--- NOTE | 2016-05-28 13:47 | NUR ---
Nursing Note [id number] Behavior S/O: Pt's mood is labile. She is very pleasant at times, then later becomes upset stating she is going to "[facility] the facility." Pt attended groups today. Pt took all medications as ordered. She later stated, "I'm starting to itch. I think it's one of the meds you guys are giving me." No rash visible. Pt's blood sugar this morning was 178. Pt showed me several small light bruises on right forearm. She became indignant when asked if she had bumped her arm on anything stating, "I didn't do anything to hurt myself!" A: Pt appears hypomanic & has difficulty regulating her emotions. P: Provide supportive environment. Monitor medications & effects.
[2016-05-28] MEDS: diphenhydrAMINE 50 mg Capsule PO PRN ×2 (17:39→23:22)
--- NOTE | 2016-05-28 17:43 | NUR ---
Nurses Note PRN Patient requested and received Ibuprofen 800mg,Ativan 1mg,Benadryl 50mg at 1700 and 1740 for c/o increased hip pain,anxiety,agitation. Patients' mood extremely labile fluctuating between tearfulness and extreme agitation with hostile remarks to staff and peers. Will encourage decreased stimuli,relaxation activities and continued medication compliance
--- NOTE | 2016-05-28 17:57 | NUR ---
Nurses PRN Patient received Ativan 1 mg PRN at her request for a loud tearful episode followed by an agitated grandiose outburst. "I don't feel well". Will assess medication response. Addendum: 05/28/16 at 2048 by SUZETTE VALDES RN Nurses Note Patient eventually calmed and was socially appropriate in the community. Her voice softened with an improved mood after a shower and snacks.Will continue to encourage improved emotional control,insight into illness and management of same.
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
[2016-05-28] MEDS: diphenhydrAMINE 25 mg Capsule PO SCH (21:21)
[2016-05-29] MEDS: Magnesium Hydroxide 10 mL Oral Concentration PO PRN (02:21)
[2016-05-29] MEDS: LORazepam 1 mg Tablet PO PRN ×2 (04:54→23:49)
--- NOTE | 2016-05-29 05:25 | NUR ---
Nursing notes: loan administrator: sleep/prn medication Patient's sleep remains fragmented. Patient has numerous somatic concerns and requests for medication. Patient received Ativan 1 mg po, along with Motrin and Tylenol twice during the night. Patient also complained of constipation, received MOM at 02:21 with reported good effects by 5pm. Although Patient is still hyperverbal and pressured; patient has been pleasant and able to accept directions.
--- NOTE | 2016-05-29 05:45 | NUR ---
Observations from [id number] Pts mood has been very labile. Pt becomes very upset with small things, but seems to be able to be redirected. Pt got into a verbal argument with another pt this evening, but staff was able to intervene before it escalated. Pt only slept for about 3 hours this evening has has been pacing the unit for the majority of the night and morning. Pt has been monitored every 15 minutes as directed,
[2016-05-29] MEDS: Pantoprazole 40 mg ER24 Tablet PO SCH (08:00)
[2016-05-29 08:15] VITALS: BP 150/84; PULSE 69; RESP 17
[2016-05-29] MEDS: ARIPiprazole 10 mg Tablet PO SCH (08:17)
[2016-05-29] MEDS: LORazepam 1 mg Tablet PO SCH ×2 (08:20→15:13)
--- NOTE | 2016-05-29 14:43 | PCM.PNPSY ---
Subjective Date of Service May 29, 2016 Subjective The patient is doing better and reporpts that she is feeling more stable. She reports that she is still not sleeping well at night and requests additional medication to help same. She denies side effects. Discussed the difficulties that she was having at [facility] and she was agreeable to have a meeting with them to plan a potential return there. Patient was advised against cleaning excessively. Sleep: 3.25 hours Appetite: good Suicidal and homicidal ideation: denies Auditory hallucinations: denies Visual hallucinations: denies Other Psychotic Symptoms: N/A Anxiety: 07/22 Depression: 06/21 Current Medications Current Medications Guaifenesin 200 mg Q4H PRN PO Last administered on 05/28/16t 17:42; Admin Dose 200 MG; Start 05/27/16 at 22:05 Mental Status Exam Vital Signs Vital Signs Date Time Temp Pulse Resp B/P Pulse Ox O2 Delivery O2 Flow Rate FiO2 05/29/16 08:15 36.5 69 17 150/84 Appearance: Neat/well groomed Attitude: Pleasant, Cooperative Behavior: No unusual behavior Affect: Well Modulated/Appropriate Mood: Dysthymic, Anxious Thought Process/Associations: Logical/Sequential, Goal Directed Speech Production: Normal Speech Rate: Normal Speech Articulation: Normal Thought Content: Appropriate Danger to Self/Suicidal Ideati: None Danger to Others: None Hallucinations: Auditory (Denies), Visual (Denies) Consciousness: Alert Orientation: Person, Place, Date, Situation Memory: Grossly Intact Estimate Intellectual Function: Average Basis for IQ estimate: Awareness current events, Word use/vocabulary, Educational history Attention/Concentration & Cogn: Impaired Insight: Limited Judgement: Limited Mental Health Plan The patient is a 56-year-old female with a recent psychiatric hospitalization on the [facility] (admitted 05/01/2016 and discharged on 05/19/2016). The patient had been discharged to [facility], but she had been unable to follow expectations and was demonstrating symptoms of decompensation. On admission, she presented with multiple symptoms of bipolar disorder with psychosis including distractibility pressured speech racing thoughts grandiose and paranoid delusions, increased activity, and poor interpersonal boundaries with impaired judgment and insight. The patient was admitted on a revocation of a less restrictive order following failure to comply with her less restrictive order. She has been tried on a number of medications but stabilized on a combination of aripiprazole 20 mg daily and Depakote 750 mg. The patient received her first dose of Abilify Maintena 400 mg on April 26, 2016 and her second dose on May 26, 2016. The patient has demonstrated improved stability over the last few days and was agreeable to a meeting with [facility] staff to discuss concerns and expectations. [place] I. Bipolar disorder, manic, with psychotic features, Posttraumatic stress disorder, Polysubstance use disorder, in early remission. [place] II. Deferred. [place] III. Hypertension, Insulin-dependent diabetes mellitus, hypothyroidism, and obesity. [place] IV. Unknown. [place] V. Current Global Assessment of Functioning is 35 Medications 1. Lorazepam 1 mg twice daily 2. Abilify Maintena 400 mg IM monthly, 1st given April 26, 2016, last given on 05/26/16 3. Aripiprazole 20 mg daily 4. Benadryl 25 mg at bedtime. 5. Atorvastatin 40 mg daily. 6. Glipizide 10 mg twice daily. 7. Metformin 1000 mg twice daily. 8. Levothyroxine 200 mcg daily. 9. ProAir 80 mcg metered dose inhaler as needed. 10. Lisinopril 5 mg daily. 11. Pantoprazole 40 mg daily. 12. Ibuprofen 800 mg three times a day as needed. 13. Benadryl 50 mg as needed for itching. 14. Temazepam 30mg po nighlty PRN insomnia Treatments 1. The patient is admitted to the inpatient unit and will be provided a safe and secure environment. 2. The patient is denying current active suicidality and is not in need of a one-to-one at this time. 3. The patient is encouraged to participate with group and milieu activities. 4. The patient will be seen by the treatment team on a daily basis to assess symptoms, side effects and response to treatment. 5. The patient will be continued on her current medications. 6. Increase lorazepam to 1mg three times a day. 7. Schedule meeting with [facility] to discuss expectations/behaviors. 8. Anticipated length of stay is 7-10 days. Jez Stephens MD May 29, 2016 14:43 Aripiprazole 20 mg daily Patient offered Depakote 750 mg but is currently refusing. Ativan 1 mg twice a day aripiprazole Maintena and was started on 400 mg on April 26, 2016. Next dose due 05/27/2016, we will plan to continue Abilify at 20 mg for an additional 14 days after next IM decanoate dose Labs: Within normal limits Education: Educate about metabolic etiologies related to obesity Address patient's legal status petition to revoke a 90 day MR involuntary treatment hold granted today, . Disposition: [facility] for long-term care versus [facility] through [facility] which is still holding a bed for her WaJez pace MD May 29, 2016 14:43
--- NOTE | 2016-05-29 14:50 | NUR ---
Development Chemist./ c.m. S.:""I feel really good today. " O.: met with pt. and MD together. Pt. "didn't sleep well last night. I missed my kids and grand kids because of Easter. I was very anxious about it yesterday. I feel better today." She agreed to take Ativan and her sleeping aid tonight in order to get a good night sleep. She said that meds were working well for her and she felt much better. She denied SI/HI, denied AH/VH, rated depression at 5/10 and anxiety at 6/10 ("it's not too bad today"). She continued cleaning in the Dining room. She informed MD and information writer right away that her hands were "very clean". She agreed to go back to [facility]. MD asked for a mtg with Raman Medellin c.m. at [facility], pt. and our staff to discuss rules in the house, pt.'s responsibilities and other residents responsibilities prior to pt.'s discharge from here. Pt. agreed to have this mtg. A.: pt. is cooperative, pleasant, paranoid about germs, social with peers and staff. P.: monitor behavior, monitor for safety, encourage healthy boundaries; follow care plan.
--- NOTE | 2016-05-29 18:55 | NUR ---
Nursing: Day shift: Malu has been out on the open unit most of the day. She took scheduled Ativan am and 1530. Requested and received ibuprofen and Benadryl at 1245. At 1400, she denied any anxiety or pain. Worked on crafts in RT room. Polite toward continuity writer whenever she made requests. No altercations with peers. P: Assess for effectiveness of current med regimen.
[2016-05-29 19:23] VITALS: BP 149/79; PULSE 75
[2016-05-29] MEDS: diphenhydrAMINE 25 mg Capsule PO SCH (20:03)
--- NOTE | 2016-05-29 20:44 | NUR ---
Observations 0900 to 0 Pt affect and mood was labile, manic, intrusive, hypersexual, hyperverbal and very inappropriate with this technical publications writer. Pt appears to be preoccupied. Pt speech was rapid and eye contact was good. Pt was in and out of her room most of the shift, pacing hallway and working on several collages in group room. Pt attended meals in D.R. and ate approximately 75% of his meals. Pt maintained behavior throughout the shift other than being inappropriate and intrusive. Pt needs occasional staff redirection. Pt was polite and cooperative. Pt had a phone call from her daughter and it appeared to go well. Pt was observed every 15 minutes throughout the shift as ordered.
[2016-05-29] MEDS ORDERED: LORazepam 1 mg Tablet PO SCH (21:00)
[2016-05-29] MEDS: diphenhydrAMINE 50 mg Capsule PO PRN (23:54)
--- NOTE | 2016-05-30 00:07 | NUR ---
Insomnia Pt unable to sleep. Requests medications Given PO ativan/benadryl (for itching) Pt continues to walk around the unit. Non disruptive. Encouraged to lie down and go to sleep.
[2016-05-30] MEDS: guaiFENesin 20 mg/mL 10 mL Syrup PO PRN (01:07)
--- NOTE | 2016-05-30 03:48 | NUR ---
Observations 1900 to 0700 Pt affect and behavior are the same as in her other stays here. Pt was slightly inappropriate at times. Pt is having a hard time sleeping as usual. Pt first appeared asleep at 22:30 was observed every 15 minutes through the night as directed.
--- NOTE | 2016-05-30 03:49 | NUR ---
Pain Pt states her "sciatica" is very painful. Requests tylenol and ibuprofen. Offered egg crate for increased comfort. Helped patient situate egg crate on bed. Encouraged pt to lie down. She appears that she may do this (lie down). Care ongoing
[2016-05-30] MEDS: ARIPiprazole 10 mg Tablet PO SCH (07:39)
[2016-05-30] MEDS: LORazepam 1 mg Tablet PO SCH ×2 (07:41→13:41)
[2016-05-30] MEDS: Pantoprazole 40 mg ER24 Tablet PO SCH (09:00)
--- NOTE | 2016-05-30 11:19 | NUR ---
Mood and behavior Pt. in elevated mood today. She reported her mood is "10 out of 10, I'll give it 20 out of 10 if I could." during am group meeting. In running shorts, she was observed walking up and down the hallway for exercise. P: She interrupted a conversation between a patient with a nurse. She stated to nurse, "She is always like that, so mean to the staff. She doesn't know what she is talking about." I: Pt. was requested not to interrupt the conversation. E: Pt. complied and walked away as she was grumbling words. Pt. exhibited poor impulse control.
[2016-05-30 13:02] VITALS: BP 142/83; PULSE 70; RESP 17
--- NOTE | 2016-05-30 15:09 | PCM.PNPSY ---
Subjective Date of Service May 30, 2016 Subjective The patient reports that she is feeling "great" today. Although staff report that she only slept 2 hours, she reports that she slept much more than that with only one hour awakening in the middle of the night. She was agreeable to increasing bedtime lorazepam. She reported that she thought that she had court today, which increased her anxiety somewhat. She denies side effects. Patient anxious about meeting with [facility] staff, but felt reassured that counselor would be present. Patient was advised against cleaning excessively. Sleep: 2+ hours Appetite: good Suicidal and homicidal ideation: denies Auditory hallucinations: denies Visual hallucinations: denies Other Psychotic Symptoms: N/A Anxiety: 0/10 Depression: 0/10 Current Medications Current Medications Lorazepam 1 mg HS PO Last administered on 05/29/16t 20:03; Admin Dose 1 MG; Start 05/29/16 at 21:00 Mental Status Exam Vital Signs Vital Signs Date Time Temp Pulse Resp B/P Pulse Ox O2 Delivery O2 Flow Rate FiO2 05/30/16 13:02 35.1 70 17 142/83 Appearance: Neat/well groomed Attitude: Pleasant, Cooperative Behavior: No unusual behavior Affect: Well Modulated/Appropriate Mood: Expansive Thought Process/Associations: Logical/Sequential, Goal Directed Speech Production: Normal Speech Rate: Normal Speech Articulation: Normal Thought Content: Appropriate Danger to Self/Suicidal Ideati: None Danger to Others: None Hallucinations: Auditory (Denies), Visual (Denies) Consciousness: Alert Orientation: Person, Place, Date, Situation Memory: Grossly Intact Estimate Intellectual Function: Average Basis for IQ estimate: Awareness current events, Word use/vocabulary, Educational history Attention/Concentration & Cogn: Impaired Insight: Limited Judgement: Limited Mental Health Plan The patient is a 56-year-old female with a recent psychiatric hospitalization on the [facility] (admitted 05/01/2016 and discharged on 05/19/2016). The patient had been discharged to [facility], but she had been unable to follow expectations and was demonstrating symptoms of decompensation. On admission, she presented with multiple symptoms of bipolar disorder with psychosis including distractibility pressured speech racing thoughts grandiose and paranoid delusions, increased activity, and poor interpersonal boundaries with impaired judgment and insight. The patient was admitted on a revocation of a less restrictive order following failure to comply with her less restrictive order. She has been tried on a number of medications but stabilized on a combination of aripiprazole 20 mg daily and Depakote 750 mg. The patient has consistently refused Depakote and so has been continued on a combination of lorazepam and aripiprazole. The patient received her first dose of Abilify Maintena 400 mg on April 26, 2016 and her second dose on May 26, 2016. The patient has demonstrated improved stability over the last few days and was agreeable to a meeting with [facility] staff to discuss concerns and expectations. [facility] staff reported, following the meeting, that she could return there when medically stable. Patient will need improved insight and sleep prior to return there. [place] I. Bipolar disorder, manic, with psychotic features, Posttraumatic stress disorder, Polysubstance use disorder, in early remission. [place] II. Deferred. [place] III. Hypertension, Insulin-dependent diabetes mellitus, hypothyroidism, and obesity. [place] IV. Unknown. [place] V. Current Global Assessment of Functioning is 40 Medications 1. Lorazepam 1 mg three times daily 2. Abilify Maintena 400 mg IM monthly, 1st given April 26, 2016, last given on 05/26/16 3. Aripiprazole 20 mg daily 4. Benadryl 25 mg at bedtime. 5. Atorvastatin 40 mg daily. 6. Glipizide 10 mg twice daily. 7. Metformin 1000 mg twice daily. 8. Levothyroxine 200 mcg daily. 9. ProAir 80 mcg metered dose inhaler as needed. 10. Lisinopril 5 mg daily. 11. Pantoprazole 40 mg daily. 12. Ibuprofen 800 mg three times a day as needed. 13. Benadryl 50 mg as needed for itching. 14. Temazepam 30mg po nighlty PRN insomnia Treatments 1. The patient is admitted to the inpatient unit and will be provided a safe and secure environment. 2. The patient is denying current active suicidality and is not in need of a one-to-one at this time. 3. The patient is encouraged to participate with group and milieu activities. 4. The patient will be seen by the treatment team on a daily basis to assess symptoms, side effects and response to treatment. 5. The patient will be continued on her current medications. 6. Increase lorazepam to 1mg twice a day and 2mg at bedtime. 7. Return to [facility] when medically stable. 8. Anticipated length of stay is 7-10 days. Jez Stephens MD May 30, 2016 15:09
--- NOTE | 2016-05-30 15:46 | NUR ---
Windows Application Packager./ c.m. S.:"I feel very good today." O.: Pt. denied SI/HI, denied AH/VH or paranoid/delusional thoughts, denied depression or anxiety. She agreed to meet with Raman Medellin and the account underwriter for a mtg related to her future discharge to [facility]. She was able to ask all questions regarding rules in the House and she expressed her concerns also. Raman answered all pt.'s questions. He explained changes that were made after pt. left [facility]. Raman promised to accommodate pt.'s needs. She felt good after the mtg and was looking forward going back there. A.: pt. is cooperative, pleasant, confused and loud at times. P.: monitor behavior, follow care plan.
--- NOTE | 2016-05-30 18:07 | NUR ---
Obs Dayshift Pt is pressured, loud, grandiose, very labile, aggressive toward some staff and some peers. Pt is tearful, irritable, angry, demanding. Pt participating in most groups, and tries to lead the groups. Pt is giving out her clothing to peers, stating that she has shah and wants to go do some shopping. Pt is verbally aggressive toward some staff, bullying, and intimidating. Pt is often needing redirection by staff, and reminders to be appropriate. Pt has a short attention span, quickly moving from one topic or activity to another. Good ALD's, Good meals
[2016-05-30] MEDS: LORazepam 2 mg Tablet PO SCH (19:21)
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
[2016-05-30] MEDS: LORazepam 1 mg Tablet PO PRN (21:41)
[2016-05-30] MEDS: diphenhydrAMINE 25 mg Capsule PO SCH (21:41)
--- NOTE | 2016-05-30 23:02 | NUR ---
PRN med 800 mg. of motrin given PO per request for knee pain rated at 5/10. 30 min. later pt. stated she had less pain.
--- NOTE | 2016-05-30 23:13 | NUR ---
PRN meds 1 mg. of Ativan given PO for increasing anxiety at 2140. Pt. had increasing agitation after this. She then was given prn 10 mg. Zyprexa IM in Lt. GM for agitation at 2231 per doctor order. 1 hour later she was quieter but acting oddly in the seclusion room with 1:1 observation per protocol.
[2016-05-31] MEDS: LORazepam 2 mg Tablet PO SCH ×2 (00:42→21:11)
[2016-05-31] MEDS ORDERED: LORazepam 2 mg Tablet PO PRN (00:45)
--- NOTE | 2016-05-31 00:47 | NUR ---
Seclusion: [address] Gaspar called and emergent order obtained @ 0035 for Seroquel 200mg po Prn and Ativan 2mg po prn both given @ 0045. Pt agreed to take po medication from this nursing staff. She continued to be angry and yelling at certain staff members. Pt had urinated on the seclusion room floor loudly stating "Don't you clean that up! Let ---- lick it up! F*ck him!" Pt shows no insight or judgement into her need for seclusion. She was yelling and swearing stating "I did nothing wrong! I didn't throw anything! I threw water on that b*tch because she would not give me a shower. Pt had removed clothing except wearing her bra and underwear. She presents as labile, easily agitated, angry at staff for perceived injustices, swearing, lacking behavioral control. Unable to verbally agree to maintain behavior on open unit. She remains a danger to others at this time. Seclusion continues. Next assessment due @ 0230. Pt continues with continuous 1:1 observation. Addendum: 05/31/16 at 0116 by AMY GREEN RN Per shift report from Abel Armas RN patient initial seclusion was on 05/30/16 at 2230 for volatile and aggressive behavior. Addendum: 05/31/16 at 299 by AMY GREEN RN Seclusion continued Pt continues to be angry, pressured speech, and labile. She continues to yell and swear at staff unprovoked. She yells "F*ck you" at staff for unknown reason. She angrily told staff to "lick her pee off of the floor." Pt lacks insight into her own behavior and unable to verbally contract for behavioral control on the open unit. When asked by staff if she can not yell or throw things if out of seclusion she went off on an angry tirade. Dr Gaspar called and order obtained @ 9128 for continued seclusion for . Next 2 hour nursing assessment due @ 4420. Addendum: 05/31/16 at 030 by AMY GREEN RN Pt yelling and c/o hip pain. She was hitting the wall. Pt given Ibuprofen 800mg po prn @0154. Pt unable to rate pain but was yelling "It f*cking hurts bad!" Addendum: 05/31/16 at 0453 by AMY GREEN RN Seclusion: 2 hour nursing assessment 0430 nursing assessment pt sleeping briefly on mattress. Pt easily awoke by staff and quickly escalated and again went on angry tirade. She remains labile and pressured. She stated loudly "I am going to romana all of them! They wouldn't let me take a shower! They all want to f*ck me! That is what is going on!" Pt continues to lack insight into behaviors leading to seclusion. Delusional thoughts that male staff want sexual relations with her. Pt used bathroom with several staff present. She still is unable to maintain behavioral or emotional control. Seclusion continues with 1:1 direct observation. Addendum: 05/31/16 at 0455 by AMY GREEN RN Pt still c/o hip pain. Motrin noted to have minimal effect.
--- NOTE | 2016-05-31 06:35 | NUR ---
Seclusion ended @ 06. Pt cooperative to going to her room and staying there until seen by the doctor this morning. Agreed to take Ativan 2mg po prn for anxiety. Refused offered Seroquel 200mg po prn stating "I can't take Seroquel." Pt remains in her room washing up in the bathroom. Debriefed with patient behaviors needed to come out of seclusion and she agreed not to get angry at staff, yell or swear.
[2016-05-31] MEDS: Pantoprazole 40 mg ER24 Tablet PO SCH (08:26)
[2016-05-31] MEDS: ARIPiprazole 10 mg Tablet PO SCH (08:27)
[2016-05-31] MEDS: LORazepam 1 mg Tablet PO SCH ×2 (08:30→14:30)
[2016-05-31 12:16] VITALS: BP 137/81; PULSE 90; RESP 16
--- NOTE | 2016-05-31 13:50 | NUR ---
Nursing Note [id number] Behavior S/O: Pt out on unit with scowl on face pacing halls. Pt complaining about transmitter operator, "I'm not going to do her work for her. She doesn't deserve my help....I'll just watch her work....I'll be nice to her [sarcastically]." Pt has been glaring at staff through the window at the nurses station. Pt able to maintain appropriate language & interactions. AM blood sugar was 116 prior to breakfast. Pt has good appetite. Pt took am medications. She stated, "I'm allergic to those medications. They make me too tired." A: Pt in hypomanic state. Pt has no insight into illness. P: Provide supportive environment. Monitor medications & effects.
--- NOTE | 2016-05-31 19:01 | NUR ---
Counseling/Gas Producer: S: "I was in seclusion and given a shot and today I am so out of it." O: Patient only had 3 hours of intermittent sleep last night per staff. She denies S/I and H/I. She denies auditory an visual hallucinations. Depression is 2/10 and anxiety is 4/10. When asked her mood, patient stated, "I'm so angry with those people who put me in seclusion!" A: Patient is cooperative, irritable at times, poor insight, poor judgment. P: Follow care plan, coordinate out-patient providers, monitor behavior.
--- NOTE | 2016-05-31 20:16 | NUR ---
Obs Dayshift Pt was groggy, mumbling and tired in the morning. Early afternoon began doing more pacing on the unit, engaging more w/ peers. Pt was less pressured, continued to be more irritable and complaining to some peers about her treatment here last night, and no insight into her own behavior. Pt is edgy, with a forced polite engagement toward staff. Pt continues to complain about her medications and that states that she is allergic because they make her tired. Pt has good ADL's, and good meals
[2016-05-31] MEDS: guaiFENesin 20 mg/mL 10 mL Syrup PO PRN (20:42)
[2016-05-31] MEDS: diphenhydrAMINE 25 mg Capsule PO SCH (21:11)
--- NOTE | 2016-05-31 22:34 | PCM.PNPSY ---
Subjective Date of Service May 31, 2016 Subjective Patient agitated last night, became increasingly sexually pre-occupied and irritable eventually requiring seclusion and IM medication. Patient does not recall inappropriate behavior and believes she was only celebrating the [employer] game. Patient concerned about sedation. Patient unwilling to take Depakote citing an allergic rash. Patient angry about IM and felt that staff were laughing about her in the nursing station. Discussed the high amount of lorazepam she had been receiving and that we should use alternate medication. She was initially unwilling to consider hydroxyzine due to concern about weight gain, but eventually agreed for PRN use. Sleep: 3 hours Appetite: okay Suicidal and homicidal ideation: denies Auditory hallucinations: denies Visual hallucinations: denies Other Psychotic Symptoms: see above Anxiety: denies, thought appears present Depression: denies Current Medications Current Medications Lorazepam 1 mg HS PO Last administered on 05/29/16 20:03; Admin Dose 1 MG; Start 05/29/16 at 21:00; Stop 05/30/16 at 15:01; Status DC Lorazepam 2 mg HS PO Last administered on 05/31/16 00:42; Admin Dose 2 MG; Start 05/30/16 at 21:00 Lorazepam 2 mg Q4H PRN PO Last administered on 05/31/16 06:32; Admin Dose 2 MG ; Start 05/31/16 at 00:45; Stop 05/31/16 at 15:28; Status DC Olanzapine 10 mg Q6H PRN IM Last administered on 05/30/16 22:34; Admin Dose 10 MG; Start 05/30/16 at 22:20 Quetiapine Fumarate 200 mg STK-MED ONCE .ROUTE Last administered on 05/31/16 00 :41; Admin Dose 200 MG; Start 05/31/16 at 00:38; Stop 05/31/16 at 00:40; Status DC Mental Status Exam Vital Signs Vital Signs Date Time Temp Pulse Resp B/P Pulse Ox O2 Delivery O2 Flow Rate FiO2 05/31/16 12:16 36.2 90 16 137/81 Appearance: Neat/well groomed Attitude: Cooperative, Guarded, Other (angry) Behavior: Other (irritable) Affect: Labile Mood: Irritable Thought Process/Associations: Goal Directed Speech Production: Abundant (mild) Speech Rate: Pressured (mild) Speech Articulation: Normal Thought Content: Suspicious, Perseveration Danger to Self/Suicidal Ideati: None Danger to Others: None Hallucinations: Auditory (Denies), Visual (Denies) Consciousness: Alert Orientation: Person, Place, Date, Situation Memory: Grossly Intact Estimate Intellectual Function: Average Basis for IQ estimate: Awareness current events, Word use/vocabulary, Educational history Attention/Concentration & Cogn: Impaired Insight: Limited Judgement: Limited Mental Health Plan The patient is a 56-year-old female with a recent psychiatric hospitalization on the [facility] (admitted 05/01/2016 and discharged on 05/19/2016). The patient had been discharged to [facility], but she had been unable to follow expectations and was demonstrating symptoms of decompensation. On admission, she presented with multiple symptoms of bipolar disorder with psychosis including distractibility pressured speech racing thoughts grandiose and paranoid delusions, increased activity, and poor interpersonal boundaries with impaired judgment and insight. The patient was admitted on a revocation of a less restrictive order following failure to comply with her less restrictive order. She has been tried on a number of medications but stabilized on a combination of aripiprazole 20 mg daily and Depakote 750 mg. The patient has consistently refused Depakote and so has been continued on a combination of lorazepam and aripiprazole. The patient received her first dose of Abilify Maintena 400 mg on April 26, 2016 and her second dose on May 26, 2016. The patient has demonstrated improved stability over the last few days and was agreeable to a meeting with [facility] staff to discuss concerns and expectations. [facility] staff reported, following the meeting, that she could return there when medically stable. Patient will need improved insight and sleep prior to return there. Last night, the patient had worsening behavior. The patient has been receiving PRN lorazepam with total lorazepam over 6mg per day limit likely resulting in disinhibition. Discussed reducing scheduled lorazepam and replacing PRN lorazepam with hydroxyzine. Patient agreeable. Patient would not agree to mood stabilizer. [place] I. Bipolar disorder, manic, with psychotic features, Posttraumatic stress disorder, Polysubstance use disorder, in early remission. [place] II. Deferred. [place] III. Hypertension, Insulin-dependent diabetes mellitus, hypothyroidism, and obesity. [place] IV. Unknown. [place] V. Current Global Assessment of Functioning is 35 Medications 1. Lorazepam 1 mg twice a day and 2mg at bedtime 2. Abilify Maintena 400 mg IM monthly, 1st given April 26, 2016, last given on 05/26/16 3. Aripiprazole 20 mg daily 4. Benadryl 25 mg at bedtime. 5. Atorvastatin 40 mg daily. 6. Glipizide 10 mg twice daily. 7. Metformin 1000 mg twice daily. 8. Levothyroxine 200 mcg daily. 9. ProAir 80 mcg metered dose inhaler as needed. 10. Lisinopril 5 mg daily. 11. Pantoprazole 40 mg daily. 12. Ibuprofen 800 mg three times a day as needed. 13. Benadryl 50 mg as needed for itching. 14. Temazepam 30mg po nighlty PRN insomnia Treatments 1. The patient is admitted to the inpatient unit and will be provided a safe and secure environment. 2. The patient is denying current active suicidality and is not in need of a one-to-one at this time. 3. The patient is encouraged to participate with group and milieu activities. 4. The patient will be seen by the treatment team on a daily basis to assess symptoms, side effects and response to treatment. 5. The patient will be continued on her current medications. 6. Discontinue PRN lorazepam and start hydroxyzine 50mg po q 4 hours prn anxiety/agitation 7. Reduce lorazepam to 1mg daily and 2mg at bedtime. 8. If no further improvement, consider trileptal 9. Return to [facility] when medically stable. 10. Anticipated length of stay is 7-10 days. Jez Stephens MD May 31, 2016 17:02
[2016-05-31] MEDS: diphenhydrAMINE 50 mg Capsule PO PRN (23:44)
[2016-06-01] MEDS: HYDROcodone-APAP 5-325 mg Tablet PO PRN (00:25)
--- NOTE | 2016-06-01 05:13 | NUR ---
Noc Observations Pt mood labile but somewhat less aggressive. Needed reminders about appropriate attire for out on unit. Pt reported extreme pain as the cause of waking and inability to sleep. Asleep [id number], 115-145,230. Pt observed every 15 minutes as ordered.
--- NOTE | 2016-06-01 05:22 | NUR ---
Nursing Note shift manager 7pm to 7am Pt took Restoril 30mg, and motrin and Tylenol for pain this evening with little relief. Pt awake at 2337 in distress over itching on hands and pain in lower back and right hip of 10/10. Pt grimacing and holding lower back, visibly in pain. Given Benadryl 50mg for itching. Ibuprofen and Tylenol not due. T/C to Dr. Gaspar to report unrelieved pain. Given order for [place] 5-325 1-2 tabs q 4 hours. Given 2 tabs at 0028 with good relief. Pt back to sleep at 0230 and slept the remainder of the shift. Monitoring ongoing.
[2016-06-01 08:01] VITALS: BP 141/83; PULSE 74; RESP 17
[2016-06-01] MEDS: Pantoprazole 40 mg ER24 Tablet PO SCH (08:10)
[2016-06-01] MEDS: ARIPiprazole 10 mg Tablet PO SCH (08:10)
[2016-06-01] MEDS: LORazepam 1 mg Tablet PO SCH (08:11)
--- NOTE | 2016-06-01 11:39 | NUR ---
Nursing Note [id number] Behavior S/O: Pt has good appetite. VS stable. Pt is pleasant & cooperative. She rates her mood at a "20" on a scale of 1-10/10 the best. She states, "I slept good last night." Pt slept 4.25 hours. Pt has been in constant motion with various activities during the day. A: Pt appears hypomanic. P: Provide supportive environment. Monitor medications & effects. Addendum: 06/01/16 at 1200 by BUDDY GODOY RN Pt received Tylenol 650 mg this morning for sciatic pain. Pt states, "It helped a little. Ibuprofen works better." Pt given ibuprofen at noon for pain at a "10" on a scale of 1-10/10 the worst.
[2016-06-01] MEDS: guaiFENesin 20 mg/mL 10 mL Syrup PO PRN ×2 (13:28→22:39)
--- NOTE | 2016-06-01 13:44 | PCM.PNPSY ---
Subjective Date of Service Jun 01, 2016 Subjective Patient much calmer today. Reports she is "doing excellent" today. Reports that a call from a grand-daughter helped boost her spirits. The patient felt that hydroxyzine was very effective and requested a larger routine dose at bedtime rather than diphenhydramine. Patient also wanted PACT team contacted to express her concern about significant medication changes without discussing with inpatient team. Denies side effects today. Sleep: 4.25 hours woke up with pain in the middle of the night. Appetite: okay Suicidal and homicidal ideation: denies Auditory hallucinations: denies Visual hallucinations: denies Other Psychotic Symptoms: denies Anxiety: Really well Depression: denies Current Medications Current Medications Acetaminophen/ Hydrocodone Bitart 1 TO 2 TABS Q4H PRN PO Last administered on 00:25; Admin Dose 2 TABLET; Start 06/01/16 at 00:10 Hydroxyzine Pamoate 50 mg Q4H PRN PO Last administered on 06/01/16 13:07; Admin Dose 50 MG; Start 05/31/16 at 15:25 Lorazepam 2 mg HS PO Last administered on 05/31/16 21:11; Admin Dose 2 MG; Start 05/30/16 at 21:00 Lorazepam 2 mg Q4H PRN PO Last administered on 05/31/16 06:32; Admin Dose 2 MG ; Start 05/31/16 at 00:45; Stop 05/31/16 at 15:28; Status DC Olanzapine 10 mg Q6H PRN IM Last administered on 05/30/16 22:34; Admin Dose 10 MG; Start 05/30/16 at 22:20 Quetiapine Fumarate 200 mg STK-MED ONCE .ROUTE Last administered on 05/31/16 00 :41; Admin Dose 200 MG; Start 05/31/16 at 00:38; Stop 05/31/16 at 00:40; Status DC Mental Status Exam Appearance: Neat/well groomed Attitude: Cooperative, Guarded Behavior: No unusual behavior Affect: Well Modulated/Appropriate Mood: Irritable (mild) Thought Process/Associations: Goal Directed Speech Production: Abundant (mild) Speech Rate: Pressured (mild) Speech Articulation: Normal Thought Content: Suspicious, Perseveration Danger to Self/Suicidal Ideati: None Danger to Others: None Hallucinations: Auditory (Denies), Visual (Denies) Consciousness: Alert Orientation: Person, Place, Date, Situation Memory: Grossly Intact Estimate Intellectual Function: Average Basis for IQ estimate: Awareness current events, Word use/vocabulary, Educational history Attention/Concentration & Cogn: Impaired Insight: Limited Judgement: Limited Mental Health Plan The patient is a 56-year-old female with a recent psychiatric hospitalization on the [facility] (admitted 05/01/2016 and discharged on 05/19/2016). The patient had been discharged to [facility], but she had been unable to follow expectations and was demonstrating symptoms of decompensation. On admission, she presented with multiple symptoms of bipolar disorder with psychosis including distractibility pressured speech racing thoughts grandiose and paranoid delusions, increased activity, and poor interpersonal boundaries with impaired judgment and insight. The patient was admitted on a revocation of a less restrictive order following failure to comply with her less restrictive order. She has been tried on a number of medications but stabilized on a combination of aripiprazole 20 mg daily and Depakote 750 mg. The patient has consistently refused Depakote and so has been continued on a combination of lorazepam and aripiprazole. The patient received her first dose of Abilify Maintena 400 mg on April 26, 2016 and her second dose on May 26, 2016. The patient has demonstrated improved stability over the last few days and was agreeable to a meeting with [facility] staff to discuss concerns and expectations. [facility] staff reported, following the meeting, that she could return there when medically stable. Patient will need improved insight and sleep prior to return there. The patient had a better night and appears to be in better behavioral control and approaching baseline. Patient found hydroxyzine effective; hypothesis of benzodiazepine disinhibition appears to be likely. Left message with PACT team per patient request. [place] I. Bipolar disorder, manic, with psychotic features, Posttraumatic stress disorder, Polysubstance use disorder, in early remission. [place] II. Deferred. [place] III. Hypertension, Insulin-dependent diabetes mellitus, hypothyroidism, and obesity. [place] IV. Unknown. [place] V. Current Global Assessment of Functioning is 35 Medications 1. Lorazepam 1 mg daily and 2mg at bedtime 2. Abilify Maintena 400 mg IM monthly, 1st given April 26, 2016, last given on 05/26/16 3. Aripiprazole 20 mg daily 4. Benadryl 25 mg at bedtime. 5. Atorvastatin 40 mg daily. 6. Glipizide 10 mg twice daily. 7. Metformin 1000 mg twice daily. 8. Levothyroxine 200 mcg daily. 9. ProAir 80 mcg metered dose inhaler as needed. 10. Lisinopril 5 mg daily. 11. Pantoprazole 40 mg daily. 12. Ibuprofen 800 mg three times a day as needed. 13. Hydroxyzine as needed for anxiety and for insomnia. 14. Temazepam 30mg po nighlty PRN insomnia Treatments 1. The patient is admitted to the inpatient unit and will be provided a safe and secure environment. 2. The patient is denying current active suicidality and is not in need of a one-to-one at this time. 3. The patient is encouraged to participate with group and milieu activities. 4. The patient will be seen by the treatment team on a daily basis to assess symptoms, side effects and response to treatment. 5. The patient will be continued on her current medications. 6. Continue hydroxyzine 50mg po q 4 hours prn anxiety/agitation 7. Continue lorazepam 1mg daily and 2mg at bedtime. 8. Hydroxyzine 100mg po nightly for insomnia. 9. Return to [facility] when medically stable. 10. Anticipated length of stay is 7-10 days. Jez Stephens MD Jun 01, 2016 13:44 Jez Stephens MD Jun 01, 2016 13:44
[2016-06-01] MEDS: diphenhydrAMINE 50 mg Capsule PO PRN ×2 (14:23→22:19)
[2016-06-01] MEDS: LORazepam 1 mg Tablet PO PRN (16:54)
--- NOTE | 2016-06-01 21:13 | NUR ---
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 Pt appears to be preoccupied. Pt speech was rapid and eye contact was good. Pt was in and out of her room most of the shift, cleaning, rearranging chairs, tables, coffee supplies, cups, condiments, etc. and pacing hallway. Pt attended meals in D.R. and ate approximately 75% of his meals. Pt maintained behavior throughout the shift other than being inappropriate and intrusive. Pt needs occasional staff redirection. Pt was polite and cooperative. Pt took a shower and attended to ADL's. Pt went out on patio with staff and peer to get some fresh air. Pt was observed every 15 minutes throughout the shift as ordered.
[2016-06-01] MEDS: LORazepam 2 mg Tablet PO SCH (22:19)
[2016-06-02] MEDS: LORazepam 1 mg Tablet PO PRN ×2 (00:08→15:31)
[2016-06-02] MEDS: guaiFENesin 20 mg/mL 10 mL Syrup PO PRN ×3 (02:18→22:29)
--- NOTE | 2016-06-02 04:18 | NUR ---
nursing, nights, 11-7 s- i need my ativan. i haven't taken it in awhile. thank you. i'm allergic to the vistaril. ok i'll take the seroquel. i don't like it but i'll take it. can i have some more lotion. can i have some tylenol. thank you. o- has appeared to sleep 2230-midnight, [id number] and currently at 0415. multiple requests with some swearing and pacing if they are not met to her satisfaction. generally pleasant but intrusive and demanding. assessed q 15 minutes. a- interrupted/inadequate sleep, labile and manic at times, no apparent physical distress. p- monitor behavior/emotional state, quality, times and amount of sleep, use and effect of medication. yolanda
[2016-06-02] MEDS: ARIPiprazole 10 mg Tablet PO SCH (08:20)
[2016-06-02] MEDS: Pantoprazole 40 mg ER24 Tablet PO SCH (08:20)
[2016-06-02] MEDS: LORazepam 1 mg Tablet PO SCH (08:28)
[2016-06-02 08:30] VITALS: BP 153/79; PULSE 79; RESP 18
--- NOTE | 2016-06-02 13:50 | NUR ---
Nursing Dayshift: S: "I'm going to the rec room to exercise. Do you want to dance?" O: Patient has been out of her room much of the shift. Has attended group activities. Eating with a good appetite. Flirty at times with male staff. Coloring in the dining room at present. Denies anxiety, depression, harmful thoughts, and hallucinations. A: Loud at times. Talkative. P: CPOC. Monitor mood and behavior.
[2016-06-02] MEDS: Benzocaine-Menthol Lozenge 2/Pkg PO PRN (16:06)
--- NOTE | 2016-06-02 17:34 | NUR ---
[facility] Day Shift Pt maintained behavioral control throughout the shift, albeit with some difficulty. Pt affect remains labile. Pt spends most of the shift pacing the unit, interacting with peers, and participating in various unit activities. Pt is appropriate with staff and peers, but is occasionally intrusive. Pt remains easily agitated and demonstrates some difficulty in focusing on single tasks for extended periods of time. Pt attended all group activities and participated actively. Pt attended all meals and ate approx 90% of all meals.
--- NOTE | 2016-06-02 19:40 | NUR ---
NURSING NOTE [id number] Mood: "good!" Affect: slightly pressured and anxious at start of shift, more relaxed and pleasant after PRN Ativan Behavior: participated in rec group, pacing the halls for exercise, social w/peers, listened to music, maintained behavioral control despite having one of her peers, Marta, yell and verbally attack her in the dining room during dinner Thought processes: paranoid at times, some delusions, denies SI/HI PRNs Ativan 1 mg @ 15:30 Robitussin @ 16:05 Tylenol 650 mg @ approx. 18:45 for 8/10 bilateral hip and knee pain
[2016-06-02] MEDS: LORazepam 2 mg Tablet PO SCH (21:39)
--- NOTE | 2016-06-02 21:46 | NUR ---
Counseling/Relief Captain: S: "I'm feeling good today." O: Patient only had 3.5 hours of sleep last night per staff. She denies S/I and H/I. She denies auditory an visual hallucinations. Depression is 3/10 and anxiety is 3/10. Patient continues to maintain control although a particular peer verbally disrespects her. A: Patient is cooperative, brighter, hopeful, helpful, fair insight, fair judgment. P: Follow care plan, coordinate out-patient providers, monitor behavior.
--- NOTE | 2016-06-02 22:17 | PCM.PNPSY ---
Subjective Date of Service Jun 02, 2016 Subjective Patient calmer and reports she is "great" today. Patient reports had rash from hydroxyzine and would prefer low dose quetiapine at bedtime. Patient concerned about self-picked meals as they are not working for her diabetes. Agreeable to dietary referral. Sleep: 3.5 hours, reported over sedated from seroquel Appetite: okay Suicidal and homicidal ideation: denies Auditory hallucinations: denies Visual hallucinations: denies Other Psychotic Symptoms: denies Anxiety: denies Depression: denies Current Medications Current Medications Acetaminophen/ Hydrocodone Bitart 1 TO 2 TABS Q4H PRN PO Last administered on 00:25; Admin Dose 2 TABLET; Start 06/01/16 at 00:10 Lorazepam 1 mg BID PRN PO Last administered on 06/02/16 15:31; Admin Dose 1 MG ; Start 06/01/16 at 15:45 Mental Status Exam Appearance: Neat/well groomed Attitude: Cooperative, Guarded Behavior: No unusual behavior Affect: Well Modulated/Appropriate Mood: Irritable (mild) Thought Process/Associations: Goal Directed Speech Production: Normal Speech Rate: Normal Speech Articulation: Normal Thought Content: Suspicious, Perseveration Danger to Self/Suicidal Ideati: None Danger to Others: None Hallucinations: Auditory (Denies), Visual (Denies) Consciousness: Alert Orientation: Person, Place, Date, Situation Memory: Grossly Intact Estimate Intellectual Function: Average Basis for IQ estimate: Awareness current events, Word use/vocabulary, Educational history Attention/Concentration & Cogn: Impaired Insight: Limited Judgement: Limited Mental Health Plan The patient is a 56-year-old female with a recent psychiatric hospitalization on the [facility] (admitted 05/01/2016 and discharged on 05/19/2016). The patient had been discharged to [facility], but she had been unable to follow expectations and was demonstrating symptoms of decompensation. On admission, she presented with multiple symptoms of bipolar disorder with psychosis including distractibility pressured speech racing thoughts grandiose and paranoid delusions, increased activity, and poor interpersonal boundaries with impaired judgment and insight. The patient was admitted on a revocation of a less restrictive order following failure to comply with her less restrictive order. She has been tried on a number of medications but stabilized on a combination of aripiprazole 20 mg daily and Depakote 750 mg. The patient has consistently refused Depakote and so has been continued on a combination of lorazepam and aripiprazole. The patient received her first dose of Abilify Maintena 400 mg on April 26, 2016 and her second dose on May 26, 2016. The patient has demonstrated improved stability over the last few days and was agreeable to a meeting with [facility] staff to discuss concerns and expectations. [facility] staff reported, following the meeting, that she could return there when medically stable. Patient will need improved insight and sleep prior to return there. The patient had a better night and appears to be in better behavioral control but still with some irritability. Patient found hydroxyzine effective but reports having a rash. Patient still reporting allergies to multiple medications even those with the only side effect of weight gain. Patient found quetiapine at bedtime effective for insomnia and irritability. [place] I. Bipolar disorder, manic, with psychotic features, Posttraumatic stress disorder, Polysubstance use disorder, in early remission. [place] II. Deferred. [place] III. Hypertension, Insulin-dependent diabetes mellitus, hypothyroidism, and obesity. [place] IV. Unknown. [place] V. Current Global Assessment of Functioning is 35 Medications 1. Lorazepam 1 mg daily and 2mg at bedtime and 1mg twice daily as needed. 2. Abilify Maintena 400 mg IM monthly, 1st given April 26, 2016, last given on 05/26/16 3. Aripiprazole 20 mg daily 4. Benadryl 25 mg at bedtime. 5. Atorvastatin 40 mg daily. 6. Glipizide 10 mg twice daily. 7. Metformin 1000 mg twice daily. 8. Levothyroxine 200 mcg daily. 9. ProAir 80 mcg metered dose inhaler as needed. 10. Lisinopril 5 mg daily. 11. Pantoprazole 40 mg daily. 12. Ibuprofen 800 mg three times a day as needed. 13. Hydroxyzine as needed for anxiety and for insomnia. 14. Temazepam 30mg po nighlty PRN insomnia Treatments 1. The patient is admitted to the inpatient unit and will be provided a safe and secure environment. 2. The patient is denying current active suicidality and is not in need of a one-to-one at this time. 3. The patient is encouraged to participate with group and milieu activities. 4. The patient will be seen by the treatment team on a daily basis to assess symptoms, side effects and response to treatment. 5. The patient will be continued on her current medications. 6. Discontinue hydroxyzine. Diphenhydramine 50mg po q 6 hours PRN anxiety/ agitation/itching 7. Continue lorazepam 1mg daily and 2mg at bedtime. + lorazepam 1mg po bid PRN moderate anxiety/agitation 8. Quetiapine 100mg po [id number] PRN agitation/insomnia. 9. Return to [facility] when medically stable. 10. Anticipated length of stay is 7-10 days. Jez Stephens MD Jun 02, 2016 17:20
[2016-06-02] MEDS: diphenhydrAMINE 50 mg Capsule PO PRN (22:29)
[2016-06-03] MEDS: LORazepam 1 mg Tablet PO PRN ×3 (00:15→18:02)
--- NOTE | 2016-06-03 04:52 | NUR ---
Nursing Noc Pt maintaining safety, independent with ADLs. Presents hypomanic and hypersexual, noted to attempt to enter a male patients room twice this shift. Pt continues to have difficulty sleeping and requests available PRNs for same. Noted to to have 3.25 hours broken sleep this shift. Pt noted to have good insight of what other patient thinks of her. Continuing to monitor mood behavior, emotional state and sleep times. CP
[2016-06-03 07:23] VITALS: BP 145/76; PULSE 71; RESP 16
[2016-06-03] MEDS: ARIPiprazole 10 mg Tablet PO SCH (07:50)
[2016-06-03] MEDS: Pantoprazole 40 mg ER24 Tablet PO SCH (07:51)
[2016-06-03] MEDS: LORazepam 1 mg Tablet PO SCH (07:52)
[2016-06-03] MEDS: Magnesium Hydroxide 10 mL Oral Concentration PO PRN (08:43)
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
--- NOTE | 2016-06-03 15:19 | NUR ---
NUTRITION DISCUSSION. Met with pt. to discuss healthy approaches to weight loss. Pt. aware that Seroquel and Zyprexa induce significant weight gain, and she feels that she must develop a better method to counteract the weight gain effects. She reports that she is doing pilates every day, walking as much as she can, cutting back on carbohydrates and increasing protein. I discussed that it is good to cut back on processed carbohydrates but that it is very important for GI function to consume sufficient fiber in the diet, which is mostly obtained from complex carbohydrates. She has a good baseline knowledge of nutrition but has been influenced by the media and poor information. I told her I would add a veggie cup between meals and will try to search for more complex carbohydrates to request to be prepared for her. I will add prune juice to her trays until the additional fiber enhances her GI function. I plan to see her early next week to continue the discussion.
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
--- NOTE | 2016-06-03 16:23 | NUR ---
Day Shift Observations Pts mood has been pretty upbeat and happy today. She has been interacting appropriately with staff and peers, and has been very patient when her requests can't be immediately met. Pt attended community meeting and set a goal of "being happy, no crying, and listening to music" Pt rated mood 8/10 and said she thought it would get better throughout the day. I sent a lot of time in the group room with this PT and she is less domineering in conversations and seems to be allowing others to speak. Pt ate 100% of breakfast and lunch and has been monitore every 15 minutes as directed.
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
[2016-06-04] MEDS: LORazepam 2 mg Tablet PO SCH ×2 (00:38→20:07)
[2016-06-04] MEDS: LORazepam 1 mg Tablet PO PRN ×2 (03:23→14:39)
[2016-06-04] MEDS: diphenhydrAMINE 50 mg Capsule PO PRN (03:44)
--- NOTE | 2016-06-04 06:11 | NUR ---
Nursing Noc Pt still having difficulty achieving unbroken or adequate amount of sleep. Noted to be asleep at 2215 then awake at 0030 with multiple needs. Pt back to sleep at 0145 to 0330 again up requesting medication. Pt remains gamey by being hypersexual to nurse then saying derogatory remarks to other nurse about same nurse. Pt acts very needy and demanding. Continuing to monitor mood, behavior, emotional state. Q15 minute safety checks.
[2016-06-04] MEDS: Pantoprazole 40 mg ER24 Tablet PO SCH (07:37)
[2016-06-04] MEDS: LORazepam 1 mg Tablet PO SCH (07:39)
[2016-06-04 09:00] VITALS: BP 136/72; PULSE 65; RESP 20
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
--- NOTE | 2016-06-04 11:03 | PCM.PNPSY ---
Subjective Date of Service Jun 04, 2016 Subjective The patient reports, "no rest for me, the only restful time on [facility] is [facility] She reported talking to Dr. Benoit on Sunday and that he did not want quetiapine due to weight gain, we discussed only using it while in the hospital as needed, patient was agreeable. Patient would like something different for insomnia but cannot take trazodone or zolpidem. Patient reported that [employer] helicopter landed last night, per ER, [employer] helicopter did land last night. Tremor appears slightly improved today. Patient complaining of soreness in the DIP joints on her right hand and reports having jammed them some months ago. No other side effect c/o. Sleep: 4.5 hours,patient report pretty good. Appetite: reports is increased Suicidal and homicidal ideation: denies Auditory hallucinations: denies Visual hallucinations: denies Other Psychotic Symptoms: denies Anxiety: "good" Depression: denies Current Medications Current Medications Aripiprazole 15 mg DAILY PO Last administered on 06/04/16 07:38; Admin Dose 15 MG; Start 06/04/16 at 08:30 Quetiapine Fumarate 100 mg Q4H PRN PO Last administered on 06/04/16 00:38; Admin Dose 100 MG; Start 06/02/16 at 17:20 Mental Status Exam Appearance: Neat/well groomed Attitude: Cooperative, Guarded Behavior: No unusual behavior Affect: Well Modulated/Appropriate Mood: Irritable (mild) Thought Process/Associations: Logical/Sequential, Goal Directed Speech Production: Normal Speech Rate: Pressured (mild) Speech Articulation: Normal Thought Content: Suspicious, Perseveration Danger to Self/Suicidal Ideati: None Danger to Others: None Hallucinations: Auditory (Denies), Visual (Denies) Consciousness: Alert Orientation: Person, Place, Date, Situation Memory: Grossly Intact Estimate Intellectual Function: Average Basis for IQ estimate: Awareness current events, Word use/vocabulary, Educational history Attention/Concentration & Cogn: Impaired Insight: Limited Judgement: Limited Mental Health Plan The patient is a 56-year-old female with a recent psychiatric hospitalization on the [facility] (admitted 05/01/2016 and discharged on 05/19/2016). The patient had been discharged to [facility], but she had been unable to follow expectations and was demonstrating symptoms of decompensation. On admission, she presented with multiple symptoms of bipolar disorder with psychosis including distractibility pressured speech racing thoughts grandiose and paranoid delusions, increased activity, and poor interpersonal boundaries with impaired judgment and insight. The patient was admitted on a revocation of a less restrictive order following failure to comply with her less restrictive order. She has been tried on a number of medications but stabilized on a combination of aripiprazole 20 mg daily and Depakote 750 mg. The patient has consistently refused Depakote and so has been continued on a combination of lorazepam and aripiprazole. The patient received her first dose of Abilify Maintena 400 mg on April 26, 2016 and her second dose on May 26, 2016. The patient has demonstrated improved stability over the last few days and was agreeable to a meeting with [facility] staff to discuss concerns and expectations. [facility] staff reported, following the meeting, that she could return there when medically stable. Patient will need improved insight and sleep prior to return there. The patient reports better sleep but would like something different for sleep but does not "want anything that is going to give me an allergic reaction and make me gain weight." Appears to be in better behavioral control but still with some irritability. Patient somewhat tremulous, discussed need to gradually taper aripiprazole and patient stated would prefer to be off oral medication prior to discharge.. Patient found quetiapine at bedtime effective for insomnia and irritability but is concerned about weight gain. Patient insists she had injured hand, does not know where she may have had an x-ray, although it appears consistent with osteoarthritis. [place] I. Bipolar disorder, manic, with psychotic features, Posttraumatic stress disorder, Polysubstance use disorder, in early remission. [place] II. Deferred. [place] III. Hypertension, Insulin-dependent diabetes mellitus, hypothyroidism, and obesity. [place] IV. Unknown. [place] V. Current Global Assessment of Functioning is 35 Medications 1. Lorazepam 1 mg daily and 2mg at bedtime and 1mg twice daily as needed. 2. Abilify Maintena 400 mg IM monthly, 1st given April 26, 2016, last given on 05/26/16 3. Aripiprazole 15 mg daily decrease to 10mg on 06/07 4. Benadryl 50 mg q6hr prn anx/agit 5. Atorvastatin 40 mg daily. 6. Glipizide 10 mg twice daily. 7. Metformin 1000 mg twice daily. 8. Levothyroxine 200 mcg daily. 9. Albuterol metered dose inhaler as needed. 10. Lisinopril 5 mg daily. 11. Pantoprazole 40 mg daily. 12. Ibuprofen 800 mg three times a day as needed. 13. Temazepam 30mg po nighlty PRN insomnia 14. Quetiapine 100mg po q4 hour PRN Treatments 1. The patient is admitted to the inpatient unit and will be provided a safe and secure environment. 2. The patient is denying current active suicidality and is not in need of a one-to-one at this time. 3. The patient is encouraged to participate with group and milieu activities. 4. The patient will be seen by the treatment team on a daily basis to assess symptoms, side effects and response to treatment. 5. The patient will be continued on her current medications. 6. Continue lorazepam 1mg daily and 2mg at bedtime. + lorazepam 1mg po bid PRN moderate anxiety/agitation consider decrease if increased disinhibition 7. X-ray right hand. 8. Decrease oral aripiprazole to 15mg daily and to 10mg on 06/07. 9. Return to [facility] when medically stable. 10. Anticipated length of stay is 7-10 days. Jez Stephens MD Jun 04, 2016 11:03 Jez Stephens MD Jun 04, 2016 11:03 Jez Stephens MD Jun 04, 2016 11:03
--- NOTE | 2016-06-04 12:26 | DRSVH ---
PROCEDURE: X-RAY RIGHT HAND, TWO VIEWS ([id number]) INDICATIONS: Reported injury DIP joint x 3 mo old, inc inflam TECHNIQUE: 2 views of the hand(s) acquired. COMPARISON: None. FINDINGS: Bones: Fracture of the base of the third distal phalange noted. Fracture extends into the third dis mariama interphalangeal joint. Carpal bones are normally aligned. No suspicious bony lesions. Soft tissues: No suspicious soft tissue calcifications. IMPRESSION: Displaced, intra-articular distal third phalange fracture. Dictated by: Kim Griffith MD, PhD on 06/04/2016 at 12:24 Approved by: Kim Griffith MD, PhD on 06/04/2016 at 12:25
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
--- NOTE | 2016-06-04 18:06 | NUR ---
[facility] Day Shift Pt affect and behavior unchanged from previous shifts. Pt maintained behavioral control throughout the shift, albeit with some difficulty. Pt affect remains labile. Pt spends most of the shift pacing the unit, interacting with peers, and participating in various unit activities. Pt is appropriate with staff and peers, but is occasionally intrusive and sexually inappropriate. Pt remains easily agitated and demonstrates some difficulty in focusing on single tasks for extended periods of time. Pt attended community meeting in the AM. Pt attended all group activities and participated actively. Pt attended all meals and ate approx 90% of all meals.
[2016-06-05] MEDS: diphenhydrAMINE 50 mg Capsule PO PRN ×2 (00:10→22:49)
[2016-06-05] MEDS: LORazepam 1 mg Tablet PO PRN ×2 (00:10→22:49)
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
[2016-06-05] MEDS: HYDROcodone-APAP 5-325 mg Tablet PO PRN ×2 (01:08→22:50)
[2016-06-05] MEDS: Pantoprazole 40 mg ER24 Tablet PO SCH (07:41)
[2016-06-05 08:07] VITALS: BP 134/82; PULSE 74; RESP 17
[2016-06-05] MEDS: LORazepam 1 mg Tablet PO SCH (08:30)
--- NOTE | 2016-06-05 12:02 | PCM.PNPSY ---
Subjective Date of Service Jun 05, 2016 Subjective I spent 30 minutes both reviewing treatment plan with clinical team, interviewing the patient and providing supportive/educational psychotherapy. I spent more than 50% of the time counseling the patient. I reviewed the treatment plan with the patient and discussed options available including the potential risks, benefits and side effects. Malu reports a marked improvement in thought organization and mood stability. Staff reports that she has been active and participating well in one-to-one unit and group activities. She slept 2.5 hours and remains hypomanic/hyper sexual but is currently easily redirected. She denies auditory hallucinations or paranoid delusions. She denies medication side effects. Patient was able to identify her medications and what they were used to treat. Current Medications Current Medications Aripiprazole 15 mg DAILY PO Last administered on 06/05/16t 07:41; Admin Dose 15 MG; Start 06/04/16 at 08:30; Stop 06/06/16 at 21:00 Mental Status Exam Vital Signs Vital Signs Date Time Temp Pulse Resp B/P Pulse Ox O2 Delivery O2 Flow Rate FiO2 06/05/16 08:07 36.2 74 17 134/82 Appearance: Neat/well groomed Attitude: Pleasant, Cooperative Behavior: No unusual behavior Affect: Well Modulated/Appropriate Mood: Euphoric Thought Process/Associations: Logical/Sequential, Goal Directed Speech Production: Normal Speech Rate: Pressured (mild) Speech Articulation: Normal Thought Content: Suspicious, Perseveration Danger to Self/Suicidal Ideati: None Danger to Others: None Consciousness: Alert Orientation: Person, Place, Date, Situation Memory: Grossly Intact Estimate Intellectual Function: Average Basis for IQ estimate: Awareness current events, Word use/vocabulary, Educational history Attention/Concentration & Cogn: Impaired Insight: Limited Judgement: Limited Mental Health Plan The patient is a 56-year-old female with a recent psychiatric hospitalization on the [facility] (admitted 05/01/2016 and discharged on 05/19/2016). She presented with multiple symptoms of bipolar mood disorder with psychosis including distractibility pressured speech racing thoughts grandiose and paranoid delusions, a high degree of activity, and poor interpersonal boundaries. Her judgment and insight remain impaired but are significantly improved from admission. She suffers from poorly controlled bipolar disorder, currently expressing itself as yahaira with psychotic features. She was admitted on a revocation of a less restrictive order following failure to comply with her less restrictive order. She has been tried on a number of medications but had been stabilized on a combination of aripiprazole 20 mg daily and Depakote 750 mg. She started aripiprazole Maintena and was started on 400 mg on April 26, 2016. Despite discharge to [facility] She had reportedly rapidly deteriorated and presented to the emergency room within 72 hours of discharge from our unit. She has a history of multiple inpatient hospitalizations and this appears to be her 13th admission to the [facility] alone. Malu had a significant shift in mood and attitude for the past 72 hours. She has been honest and open about her feelings. She had appropriate tearfulness and was able to process events and memories during our one-to-one session. She has had several outbursts on the unit when there tends to be high tension with other patients. The frequencies of these events is decreasing. She slept only 2 hours but declines offers to change medications to improve her sleep or to help with stabilization. She had a decrease in the intensity of symptoms but remains pressured in speech and thought. Overall Violet is made significant improvement since I was last here on the unit 7 days ago. We will continue current treatment plan. [place] I. Bipolar disorder, manic, with psychotic features, Posttraumatic stress disorder, Polysubstance use disorder, in early remission. [place] II. Deferred. [place] III. Hypertension, Insulin-dependent diabetes mellitus, hypothyroidism, and obesity. [place] IV. Unknown. [place] V. Current Global Assessment of Functioning is 35 Medications 1. Lorazepam 1 mg daily and 2mg at bedtime and 1mg twice daily as needed. 2. Abilify Maintena 400 mg IM monthly, 1st given April 26, 2016, last given on 05/26/16 3. Aripiprazole 15 mg daily decrease to 10mg on 06/07 4. Benadryl 50 mg q6hr prn anx/agit 5. Atorvastatin 40 mg daily. 6. Glipizide 10 mg twice daily. 7. Metformin 1000 mg twice daily. 8. Levothyroxine 200 mcg daily. 9. Albuterol metered dose inhaler as needed. 10. Lisinopril 5 mg daily. 11. Pantoprazole 40 mg daily. 12. Ibuprofen 800 mg three times a day as needed. 13. Temazepam 30mg po nighlty PRN insomnia 14. Quetiapine 100mg po q4 hour PRN Treatments Patient is being provided with a high degree of safety through the structure and active adult engagement. We will focus on developing improved coping skills and identifying stressors that may have led to current episode. We will attempt to: Integrate into therapeutic groups, milieu and individual therapy. Maintain in a closely monitored and structured unit Provide low-stimulation environment Obtain collateral data to assist in treatment planning Assess degree of lability of affect and impulse control Complete safety plan Decrease frequency of relapse and need for re-hospitalization Establish a consistent sleep pattern Medication effective in stabilization of mood and/or thought process Reduce the risk of imminent harm to self and/or others by providing a safe environment Tolerates medication without side effects Patient will be on the following psychiatric medications: Abilify maintaining a 400 mg IM monthly last dose given 05/26/2016 Decrease Abilify 15 mg daily to 10 mg daily starting on 06/07/2016 Temazepam 30 mg at bedtime when necessary Lorazepam 1 mg every morning 2 mg at bedtime, 1 mg twice daily as needed Education: Educate patient about recreational drug use as an etiology Educate about metabolic etiologies related to obesity Address patient's legal status Patient is on a 90 day MR involuntary treatment hold. Due to 06/13/2016, I plan to file new 180 day MR and petition the court. Patient will be given the opportunity to talk to her cushion filler and the rental sales agent Disposition: [facility] 1. The patient is admitted to the inpatient unit and will be provided a safe and secure environment. 2. The patient is denying current active suicidality and is not in need of a one-to-one at this time. 3. The patient is encouraged to participate with group and milieu activities. 4. The patient will be seen by the treatment team on a daily basis to assess symptoms, side effects and response to treatment. 5. The patient will be continued on her current medications. 6. Continue lorazepam 1mg daily and 2mg at bedtime. + lorazepam 1mg po bid PRN moderate anxiety/agitation consider decrease if increased disinhibition 7. X-ray right hand. 8. Decrease oral aripiprazole to 15mg daily and to 10mg on 06/07. 9. Return to [facility] when medically stable. 10. Anticipated length of stay is 7-10 days. Liam Dobbins MD Jun 05, 2016 12:02
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
--- NOTE | 2016-06-05 18:59 | NUR ---
Observations [id number] Pt was asleep in her room upon start of shift. Pt attended all groups, exercised, went outside and set goals. Pt became emotional throughout the day discussing the past. She expressed paranoia regarding her family and other patients and staff. Pt attended all meals, eating 100%. She was observed every 15 minutes of shift as directed.
[2016-06-05] MEDS: LORazepam 2 mg Tablet PO SCH (20:48)
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
--- NOTE | 2016-06-06 00:57 | NUR ---
Observations 1900 to 0700 Pt affect and behavior are the same as in her other stays here. Pt was slightly inappropriate at times. Pt is having a hard time sleeping as usual. Pt was observed knocking on another Pt's door as she walked by at 00:45, Pt denies doing so. Pt first appeared asleep at 23:15 was observed every 15 minutes through the night as directed.
--- NOTE | 2016-06-06 05:16 | NUR ---
Nursing Note- Handle Assembler 11pm to 7am Pt with broken sleep during the night despite taking HS meds. OOB multiple times, pacing the unit, and supporting female peer who was in distress. Pt easily agitated and has a great deal of difficulty having requests denied or gratification of needs delayed and can become easily hostile and combative. But responds to solutions involving Win-Win situations. Pt given Tylenol 650 mg for shoulder pain with good relief and Seroquel 25mg po prn for insomnia for with no effect. Pt slept a total of 3.25 hours tonight. C/o of dry scaling rash like areas under arm which per pt. has gotten progressively worse over the last 24 hours. Pictures taken and in chart for provider to review. Monitored pt with q 15 minute face checks for safety location and accountability. Addendum: 06/06/16 at 0710 by AMY GREEN RN Motrin 800mg po prn for knee pain rated 10/10.
[2016-06-06] MEDS: LORazepam 1 mg Tablet PO SCH ×2 (08:30→16:44)
[2016-06-06] MEDS: Pantoprazole 40 mg ER24 Tablet PO SCH (08:38)
[2016-06-06] MEDS: Magnesium Hydroxide 10 mL Oral Concentration PO PRN (08:39)
[2016-06-06] MEDS: LORazepam 2 mg Tablet PO SCH ×2 (08:41→21:07)
--- NOTE | 2016-06-06 12:10 | PCM.PNPSY ---
Subjective Date of Service Jun 06, 2016 Subjective I spent 30 minutes both reviewing treatment plan with clinical team, interviewing the patient and providing supportive/educational psychotherapy. I spent more than 50% of the time counseling the patient. I reviewed the treatment plan with the patient and discussed options available including the potential risks, benefits and side effects. Malu reports good thought organization and mood stability. Staff reports that she has been very active but is participating well in one-to-one unit and group activities. Staff report she slept 2.5 hours which she feels as if she slept 8 hours. Staff is reporting patient having hypomanic/hyper sexual behaviors but is currently easily redirected. She denies auditory hallucinations or paranoid delusions. She denies medication side effects. Patient was able to identify her medications and what they were used to treat. Mental Status Exam Appearance: Neat/well groomed Attitude: Pleasant, Cooperative Behavior: No unusual behavior Affect: Well Modulated/Appropriate Mood: Euphoric Thought Process/Associations: Logical/Sequential, Goal Directed Speech Production: Normal Speech Rate: Pressured (mild) Speech Articulation: Normal Thought Content: Suspicious, Perseveration Danger to Self/Suicidal Ideati: None Danger to Others: None Consciousness: Alert Orientation: Person, Place, Date, Situation Memory: Grossly Intact Estimate Intellectual Function: Average Basis for IQ estimate: Awareness current events, Word use/vocabulary, Educational history Attention/Concentration & Cogn: Impaired Insight: Limited Judgement: Limited Mental Health Plan The patient is a 56-year-old female with a recent psychiatric hospitalization on the [facility] (admitted 05/01/2016 and discharged on 05/19/2016). She presented with multiple symptoms of bipolar mood disorder with psychosis including distractibility pressured speech racing thoughts grandiose and paranoid delusions, a high degree of activity, and poor interpersonal boundaries. Her judgment and insight remain impaired but are significantly improved from admission. She suffers from poorly controlled bipolar disorder, currently expressing itself as yahaira with psychotic features. She was admitted on a revocation of a less restrictive order following failure to comply with her less restrictive order. She has been tried on a number of medications but had been stabilized on a combination of aripiprazole 20 mg daily and Depakote 750 mg. She started aripiprazole Maintena and was started on 400 mg on April 26, 2016. Despite discharge to [facility] She had reportedly rapidly deteriorated and presented to the emergency room within 72 hours of discharge from our unit. She has a history of multiple inpatient hospitalizations and this appears to be her 13th admission to the [facility] at [facility] alone. Malu had a significant shift in mood and attitude for the past 72 hours. She has been honest and open about her feelings. She had appropriate tearfulness and was able to process events and memories during our one-to-one session. She has had several outbursts on the unit when there tends to be high tension with other patients. The frequencies of these events is decreasing. She slept only 2 hours but declines offers to change medications to improve her sleep or to help with stabilization. She had a decrease in the intensity of symptoms but remains pressured in speech and thought. Overall Violet is made significant improvement since I was last here on the unit 7 days ago. We will continue current treatment plan. [place] I. Bipolar disorder, manic, with psychotic features, Posttraumatic stress disorder, Polysubstance use disorder, in early remission. [place] II. Deferred. [place] III. Hypertension, Insulin-dependent diabetes mellitus, hypothyroidism, and obesity. [place] IV. Unknown. [place] V. Current Global Assessment of Functioning is 35 Medications 1. Lorazepam 1 mg daily and 2mg at bedtime and 1mg twice daily as needed. 2. Abilify Maintena 400 mg IM monthly, 1st given April 26, 2016, last given on 05/26/16 3. Aripiprazole 15 mg daily decrease to 10mg on 06/07 4. Benadryl 50 mg q6hr prn anx/agit 5. Atorvastatin 40 mg daily. 6. Glipizide 10 mg twice daily. 7. Metformin 1000 mg twice daily. 8. Levothyroxine 200 mcg daily. 9. Albuterol metered dose inhaler as needed. 10. Lisinopril 5 mg daily. 11. Pantoprazole 40 mg daily. 12. Ibuprofen 800 mg three times a day as needed. 13. Temazepam 30mg po nighlty PRN insomnia 14. Quetiapine 100mg po q4 hour PRN Treatments Patient is being provided with a high degree of safety through the structure and active adult engagement. We will focus on developing improved coping skills and identifying stressors that may have led to current episode. We will attempt to: Integrate into therapeutic groups, milieu and individual therapy. Maintain in a closely monitored and structured unit Provide low-stimulation environment Obtain collateral data to assist in treatment planning Assess degree of lability of affect and impulse control Complete safety plan Decrease frequency of relapse and need for re-hospitalization Establish a consistent sleep pattern Medication effective in stabilization of mood and/or thought process Reduce the risk of imminent harm to self and/or others by providing a safe environment Tolerates medication without side effects Patient will be on the following psychiatric medications: Abilify maintaining a 400 mg IM monthly last dose given 05/26/2016 Decrease Abilify 15 mg daily to 10 mg daily starting on 06/07/2016 Temazepam 30 mg at bedtime when necessary Lorazepam 1 mg every morning 2 mg at bedtime, 1 mg twice daily as needed Education: Educate patient about recreational drug use as an etiology Educate about metabolic etiologies related to obesity Address patient's legal status Patient is on a 90 day MR involuntary treatment hold. Due to 06/13/2016, I plan to file new 180 day MR and petition the court. Patient will be given the opportunity to talk to her circulation man and the legal process specialist Disposition: [facility] 1. The patient is admitted to the inpatient unit and will be provided a safe and secure environment. 2. The patient is denying current active suicidality and is not in need of a one-to-one at this time. 3. The patient is encouraged to participate with group and milieu activities. 4. The patient will be seen by the treatment team on a daily basis to assess symptoms, side effects and response to treatment. 5. The patient will be continued on her current medications. 6. Continue lorazepam 1mg daily and 2mg at bedtime. + lorazepam 1mg po bid PRN moderate anxiety/agitation consider decrease if increased disinhibition 7. X-ray right hand. 8. Decrease oral aripiprazole to 15mg daily and to 10mg on 06/07. 9. Return to [facility] when medically stable. 10. Anticipated length of stay is 7-10 days. Liam Dobbins MD Jun 06, 2016 12:10
[2016-06-06 13:17] VITALS: BP 144/80; PULSE 72; RESP 16
--- NOTE | 2016-06-06 15:29 | NUR ---
Evaluation completed. Please go to "Notes" then click on "Assessments and Notes" (bottom left corner of screen). Then select appropriate discipline tab on top of screen.
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
[2016-06-07] MEDS: diphenhydrAMINE 50 mg Capsule PO PRN ×2 (01:17→21:43)
[2016-06-07] MEDS: HYDROcodone-APAP 5-325 mg Tablet PO PRN ×2 (01:17→21:44)
[2016-06-07] MEDS: LORazepam 1 mg Tablet PO PRN ×2 (01:17→18:29)
[2016-06-07] MEDS: guaiFENesin 20 mg/mL 10 mL Syrup PO PRN (01:29)
--- NOTE | 2016-06-07 06:04 | NUR ---
Nursing Noc Pt continues to be intrusive, loud, switching from subject to subject with complaints and acquisitions of theft, lies and conspiracy. Fixating negative thoughts and argumentative towards one patient on unit at this time. Continues to have very poor sleep. Requests PRN as available. Manic like activity and slightly hypersexual. Demanding of staff attention at times. Continuing to monitor mood behavior and emotional state. CP
[2016-06-07] MEDS: LORazepam 1 mg Tablet PO SCH (08:30)
[2016-06-07] MEDS: Pantoprazole 40 mg ER24 Tablet PO SCH (08:32)
[2016-06-07] MEDS: ARIPiprazole 10 mg Tablet PO SCH (08:32)
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
--- NOTE | 2016-06-07 13:18 | NUR ---
Obs Dayshift Pt is much more calm today, continues to be loud when talking to staff or peers. Pt is participating in groups and activities on the unit. Pt is less labile than yesterday, polite and supportive toward peers. Pt is very active, constantly wanting to clean the unit and cleaning up after peers. Pt remains restless and seen pacing the unit often "for her daily walks and exercise" Pt appears to be less grandiose, no talk today about getting , etc. Good ALD's, Good meals
[2016-06-07 13:29] VITALS: BP 146/84; PULSE 71
--- NOTE | 2016-06-07 22:28 | NUR ---
NURS Evening S "I've got a team of hand ornament maker to romana this place." O Pts daughter visited at start of shift. Pt briefly agitated during at end of daughter's visit as daughter did not have a ride. Staff mediated a solution and episode resolved. Pt was up in milieu much of shift; participated in group, walked halls, interacted with fellow pts. Pt presented as emotionally labile; threatened to romana the hospital because of skin issues. Skin in right axillar region is red and mottled where scaling rash had been on 06/06/16. Pt has three small cracks on skin of right hand. A Pt remains emotionally labile. Pts rt axillar rash appears to be healing. P Continue with medications and behavioral health plan.
[2016-06-08] MEDS: LORazepam 1 mg Tablet PO PRN ×2 (02:27→23:42)
--- NOTE | 2016-06-08 04:53 | NUR ---
Nursing Noc Pt presents more cooperative and at ease. Also noted to be more preoccupied with adventist. Sleep continues to be less than adequate. 3.75 hours total sleep this shift by Q15 minute safety checks. Continuing to monitor mood, behavior, and emotional state. [facility] Addendum: 06/08/16 at 0608 by AMBROSE MAJANO RN 06 " If that fxxxing bitch doesn't shut up, then I will shut her up myself!!" Pt noted to come storming out of her room to confront other patient in a very hostile manner, while making way more noise than said patient. Pt escorted back to her room with instruction to stay there.
[2016-06-08] MEDS: diphenhydrAMINE 50 mg Capsule PO PRN ×2 (05:07→22:00)
[2016-06-08] MEDS: LORazepam 1 mg Tablet PO SCH (07:39)
[2016-06-08] MEDS: ARIPiprazole 10 mg Tablet PO SCH (07:39)
[2016-06-08] MEDS: Pantoprazole 40 mg ER24 Tablet PO SCH (07:41)
--- NOTE | 2016-06-08 12:10 | NUR ---
Nursing Day Shift- S- "My was taking a shit at 930 at night, and I had to crawl on the floor and clean it up. Ok, you have a good day. Thanks for helping me." (Pt. stated the above while on the telephone) O- Pt. had slept 3.75 hours per report. She was polite, but louder this AM. She has eaten well, exercised, cleaned the DR., made several phone calls, and argued with a peer. A- Pressured, delusional, increasingly polite with staff and appropriately behaved peers. Easily agitated. P- Cont. TP
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
--- NOTE | 2016-06-08 18:27 | NUR ---
Obs Dayshift Pt is participating in groups, and w/ peers in the milieu during free times. Pt is easily irritable, labile, engaging w/ peers and staff. Pt is obsessively cleaning and wanting to help house keeping in cleaning the unit. Pt is often found yelling at, or threatening a peer and needing extra distractions or redirection from staff. Pt is little to no change from the last two weeks. Good ALD's, Good meals
--- NOTE | 2016-06-08 19:20 | NUR ---
Counseling/Boardmarker: S: "I'm getting my exercise in." O: Patient only had 3.75 hours of sleep last night per staff. She denies S/I and H/I. She denies auditory an visual hallucinations. Depression and anxiety were not rated. A: Patient is cooperative, very anxious, sad, delusional at times, fair insight, fair judgment. P: Follow care plan, coordinate out-patient providers, monitor behavior.
[2016-06-08] MEDS: LORazepam 2 mg Tablet PO SCH (19:23)
[2016-06-08] MEDS: HYDROcodone-APAP 5-325 mg Tablet PO PRN (22:00)
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
--- NOTE | 2016-06-09 01:30 | CONS ---
[address] [address] CONSULTATION REPORT PATIENT: COLE REID : [id number] MR#: [id number] ADMIT: 05/21/2016 JOB ID: [id number] DATE OF SERVICE: INPATIENT ORTHOPEDIC CONSULTATION - CPT - CODE 12364 06/05/2016 CHIEF COMPLAINT: This is a 56-year-old female inpatient in the psychiatric unit. I was asked to see her in orthopedic consultation by the on-call psychiatrist, Dr. Liam Dobbins, for right long finger distal phalangeal bony mallet injury. According to the history from the inpatient psychiatrist, this injury actually occurred some time in January 2016. The patient has continued to complain of pain in the finger. She has had approximately 13 different admissions to psychiatric units. The patient was in the hospital on the psychiatric unit initially admitted on May 01, 2016, and discharged on May 19, 2016. She has had problems with being easily distracted, psychotic, grandiose and paranoid delusions according to his history, and a high degree of activity and poor interpersonal boundaries. It was felt that her psychiatric status was very unstable and she was readmitted to the hospital on May 21, 2016. Past medical history has been obtained according to the psychiatric doctor's history and physical. ALLERGIES: The patient is allergic to 1. LAMOTRIGINE. 2. SULFA. 3. LOXAPINE. 4. ZOLPIDEM. CURRENT MEDICATIONS: Include diphenhydramine, Abilify, Lipitor, glipizide, levothyroxine, lisinopril, lorazepam, metformin, and omeprazole. She takes an albuterol inhaler p.r.n., ibuprofen, lorazepam and temazepam p.r.n. PAST MEDICAL HISTORY: Multiple inpatient hospitalizations for psychiatric illness. Medical illnesses positive for diabetes and hypothyroidism. PAST SOCIAL HISTORY: Patient is . REVIEW OF SYSTEMS: HEENT: Denies any blurring of vision. Respiratory: No shortness of breath. Cardiovascular: No chest pain. GI: No nausea, vomiting. : No dysuria. Musculoskeletal: Complaints of pain in the right long finger distal phalanx. PHYSICAL EXAMINATION: A 175 cm, 93 kg female. She is very hyperactive and has difficulty focusing when questioned. The patient is afebrile, pulse 72, respirations 16, blood pressure 144/80. Right upper extremity: Radial and ulnar pulses are full. She has an extensor lag at the DIP joint of the long finger. Skin is intact. She is able to flex the finger at the DIP, MCP and PIP joints. Sensibility appears to be grossly intact. Dorsal prominence over the DIP joint. 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 This is chronic in nature, compatible with the history that was supplied that the injury occurred in January. IMPRESSION: Right long finger bony mallet deformity distal interphalangeal joint with some mild volar subluxation of the distal phalanx. PLAN: The patient is not a good surgical candidate for any procedure at this time with her current mental status. The injury is somewhere between 4-5 months in duration. Trying to treat this with K-wire stabilization could be fraught with problems. In particular with the patient pulling out K-wires or not complying with the treatment and potentially breaking any K-wires. I explained to the patient as best as I could that I felt that nonsurgical intervention would be the best scenario for her at this time. Will have hand therapy make the patient a finger splint to keep the DIP joint extended and avoid hyperextending at the PIP joint. They may make her a long and short splint. She may wear the longer splint at night and the shorter splint during the day or whichever is most comfortable for her. I have explained to her that if the finger does become stiff in a better position then she might not need any surgical intervention. Having a stiff finger at the DIP joint is not significantly disabling. The bigger issue would be that the patient would not be able to comply with any postoperative treatment at this time with her current mental status. Extension block pinning would not be a good solution for this patient since the injury is so old, and again she would not be able to cooperate with one subcutaneous K-wire and one pin out through the skin. Surgical fixation for bony mallet injuries can be fraught with problems due to the very limited skin availability, as well as potential for infection, skin breakdown and K-wire breakage in a patient who is noncompliant. We will sign off the case for now. If further orthopedic assistance is indicated, please do not hesitate to call us. Again, hand therapy has been contacted and they will make the patient a plastic finger splint that would be safe for her to wear and would not have any metal involved particulary on the psychiatric unit . The case was discussed with Dr. Liam Dobbins and he was in agreement that not providing the patient with any metal type of finger splint would be the most beneficial. This would be best for her safety as well as others. Will sign off for now. Feel free to contact us in the future for additional questions or follow-up suggestions. CC: FLOR[facility]- Orthopedics CC: Grace Elliott
[2016-06-09] MEDS: diphenhydrAMINE 50 mg Capsule PO PRN ×2 (03:45→10:15)
[2016-06-09] MEDS: HYDROcodone-APAP 5-325 mg Tablet PO PRN ×2 (03:53→21:55)
--- NOTE | 2016-06-09 03:57 | NUR ---
OBSERVATIONS Pt remains entitled, labile, pleasant and cooperative until she's not. Pt stated that she had become , was very far along, and wanted to know how; this delusion was later abandoned. Pt is easily escalated by other pts, some more so than others. Pt intervenes in any conflict on the unit and escalates the situation. Pt is antagonistic and accusatory of staff and other pts. Maintained Q15 safety checks as directed.
--- NOTE | 2016-06-09 05:14 | NUR ---
Nursing Noc Pt remains intrusive with labile thought content at times. Directable with short period of compliance r/t mentation control. Court hearing scheduled for today, pt agreed to continue with medications. Continues to have difficulty getting and remaining asleep. Pt cooperative with staff as much as possible. Pt becomes very agitated with loud noises or heightened activity on unit. Continuing to monitor mood, behavior, emotional state.
[2016-06-09] MEDS: Pantoprazole 40 mg ER24 Tablet PO SCH (08:20)
[2016-06-09] MEDS: ARIPiprazole 10 mg Tablet PO SCH (08:20)
[2016-06-09] MEDS: LORazepam 1 mg Tablet PO SCH (08:21)
[2016-06-09 10:35] VITALS: BP 148/81; PULSE 77; RESP 18
[2016-06-09] MEDS: LORazepam 1 mg Tablet PO PRN (12:05)
--- NOTE | 2016-06-09 14:05 | NUR ---
Nursing Day Shift- S- "Oh...I'm a rabbit. Juan Miguel forgives me." O- Pt. had slept 2.5 hours per report. She was awake at the start of the day shift. Pt. continues to be pressured, labile and loud on the unit. She alternated between overly polite then irritable or sexually inappropriate comments. Ativan 1 mg was offered and taken at 1120, as well as tylenol and ibuprofen for knee, hip, and head pain. A- Labile, delusional, sexually inappropriate, very poor sleep. P- Cont. bHTP
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
--- NOTE | 2016-06-09 19:30 | NUR ---
Nurses Seclusion Note Patient screaming and pacing the hallway threatening staff and cursing. Patient unable to calm with support or be redirected. She refused PRN medications. Patient was secluded and received Zyprexa 10mg and Ativan 2mg IM at 1930. Please refer to flow sheets.
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
[2016-06-09] MEDS: LORazepam 2 mg Tablet PO SCH (21:00)
--- NOTE | 2016-06-09 22:33 | NUR ---
observations 0900 to 2300 Pt affect and mood continues to be labile, manic, intrusive, hypersexual, hyperverbal and very inappropriate at times. Pt appears to be preoccupied. Pt speech was rapid and eye contact was good. Pt was in and out of her room most of the shift, cleaning, rearranging chairs, tables, coffee supplies, cups, condiments, etc. and pacing hallway. Pt attended meals in D.R. and ate approximately 75% of her meals. Pt continues to have poor boundaries, inappropriate with staff and peers and intrusive. Pt needs constant staff redirection. Pt went out on patio with staff and peer to get some fresh air. Pt was yelling at staff, unable to follow staff direction, came out of room in her underwear yelling at staff. Yue munson was called and she was escorted back to seclusion room(see nurses note). Pt was observed every 15 minutes throughout the shift as ordered.
[2016-06-10] MEDS: HYDROcodone-APAP 5-325 mg Tablet PO PRN ×4 (02:12→21:04)
[2016-06-10] MEDS: LORazepam 2 mg Tablet PO SCH ×3 (02:12→21:43)
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
[2016-06-10] MEDS: Pantoprazole 40 mg ER24 Tablet PO SCH (08:00)
[2016-06-10] MEDS: ARIPiprazole 10 mg Tablet PO SCH (08:30)
[2016-06-10] MEDS: LORazepam 1 mg Tablet PO SCH (08:30)
[2016-06-10 10:34] VITALS: BP 125/69; PULSE 74; RESP 16
[2016-06-10] MEDS: LORazepam 1 mg Tablet PO PRN ×4 (12:28→21:51)
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
--- NOTE | 2016-06-10 14:09 | NUR ---
Day Shift Nursing note S/O-"I am upset with the doctor... I am going to romana you all if you give me Seroquel!" Pt. has been labile at times on the unit but can be redirected. She has been appropriate with peers. She was watching TV with peers and working on [employer] projects. She has a good appetite. 1 mg of ativan given PO at 1228 per request for anxiety rated at 10/10. 1 hour later pt. was quietly working on a [email or web address] project. A-Psychosis. P-Monitor for safety per protocol. Assess efficacy of meds to manage target sxs. Encourage use of calming techniques.
--- NOTE | 2016-06-10 14:37 | NUR ---
PRN Tylenol 650 mg. given at 1050 PO per request for hip pain rated at 9/10. Pt. stated she was feeling better 30 min. later.
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
[2016-06-10] MEDS: diphenhydrAMINE 50 mg Capsule PO PRN (21:05)
--- NOTE | 2016-06-10 22:59 | NUR ---
Nurses Note Evening Patient earlier in the shift had been agitated,hostile,loud and intrusive. Patient received Ativan 2mg at 1722 with calming effect. Patient maintained control, was compliant with scheduled medications.Will continue to encourage improved insight into illness and management of same. Addendum: 06/10/16 at 5417 by SUZETTE VALDES RN Amended: Links added.
[2016-06-11] MEDS: HYDROcodone-APAP 5-325 mg Tablet PO PRN ×2 (01:04→21:55)
[2016-06-11] MEDS: diphenhydrAMINE 50 mg Capsule PO PRN (03:37)
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
[2016-06-11] MEDS: Magnesium Hydroxide 10 mL Oral Concentration PO PRN (04:49)
[2016-06-11] MEDS: ARIPiprazole 10 mg Tablet PO SCH (07:50)
[2016-06-11] MEDS: Pantoprazole 40 mg ER24 Tablet PO SCH (07:50)
[2016-06-11] MEDS: LORazepam 1 mg Tablet PO SCH (07:50)
[2016-06-11 08:50] VITALS: BP 124/69; PULSE 73; RESP 17
--- NOTE | 2016-06-11 11:40 | NUR ---
Nursing Note [id number] Behavior S/O: Blood sugar this morning was 122. Pt states, "I hate Depakote & Zyprexa. That's what gave me my diabetes. I'm going to romana them for giving me diabetes" Pt ate 100% of breakfast. Vital signs stable. Pleasant & cooperative with peers and staff & interacts well. Pt compliant with medications. Pt attended groups today. Helpful with peers. Pt con't to pace halls on unit. A: Pt appears to be hypomanic. P: Provide supportive environment. Monitor medications & effects. Addendum: 06/11/16 at 1434 by BUDDY GODOY RN Pt overly friendly to peers not allowing peers to care for self.
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
[2016-06-11] MEDS: LORazepam 1 mg Tablet PO PRN (14:57)
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
--- NOTE | 2016-06-11 18:26 | NUR ---
Observations [id number] Pt was awake in the dining room upon start of shift. Pt stated that she had a difficult weekend spending time in seclusion. Pt stated that she is working on trying to be more positive, and was observed throughout the day attempting to redirect her own thoughts and conversation. Pt participated in group, working on a collage. She appears to be getting along better with patients as well. Pt attended all meals, eating 100%. Pt likes to help others and presents with "motherly" characteristics which can upset some patients. Pt was observed every 15 minutes of shift as directed.
[2016-06-11] MEDS: LORazepam 2 mg Tablet PO SCH (21:53)
--- NOTE | 2016-06-11 21:59 | NUR ---
Nurses Note Evening Patient has been more collected and emotionally controlled this shift. She received an Ativan 1mg at 1420 and has been more pleasant and polite with staff and peers. Patient has had periods of loud overly exaggerated conversations but has been able to calm on her own. Patient received [place] 2 tabs at 2200 for hip and back pain will assess response. Patient apologized for her behaviors over the weekend. Will continue to encourage emotional controls,improved coping and insight into illness and management of same.
[2016-06-12] MEDS: LORazepam 1 mg Tablet PO PRN ×4 (01:52→23:24)
[2016-06-12] MEDS: HYDROcodone-APAP 5-325 mg Tablet PO PRN ×2 (02:40→20:01)
[2016-06-12] MEDS: diphenhydrAMINE 50 mg Capsule PO PRN (02:41)
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
[2016-06-12] MEDS: LORazepam 1 mg Tablet PO SCH (09:00)
[2016-06-12 09:30] VITALS: BP 145/80; PULSE 109; RESP 18
[2016-06-12] MEDS: Pantoprazole 40 mg ER24 Tablet PO SCH (10:10)
[2016-06-12] MEDS: ARIPiprazole 10 mg Tablet PO SCH (10:10)
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
[2016-06-12] MEDS ORDERED: LUNESTA 1 MG PO PRN (16:50)
--- NOTE | 2016-06-12 16:58 | NUR ---
Observations [id number] Pt was asleep upon start of shift. Pt appeared to be very tired, pressured and medicated throughout the day, resting and sleeping more. Pt attended all meals late, but eating 100%. Pt participated in group, working on her collage. She made numerous comments throughout the day regarding wanting to leave and not wanting to be held much longer. "I want to get down to business." Pt was friendly with peers and staff. She was observed every 15 minutes of shift as directed.
[2016-06-12 17:45] LABS: BASOPHILS % (AUTO) 0.3 % (0-3); EOSINOPHILS % (AUTO) 2.9 % (0-5); MONOCYTES % (AUTO) 7.6 % (4-12); Mean Corpuscular Hemoglobin 27.7 pg (27.0-35.0); Mean Corpuscular Volume 83.5 fL (81-100); NEUTROPHILS % (AUTO) 58.7 % (40-74); Platelet Count 415 bil/L (150-400)
[2016-06-12] MEDS: LORazepam 2 mg Tablet PO SCH (20:47)
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
--- NOTE | 2016-06-13 00:51 | PCM.PNPSY ---
Subjective Date of Service June 12, 2016 Subjective The patient has been irritable and intrusive with peers. She reports today that she needs a test as she is " by my future ." She reports that she has "7 psychology associate working on the case." She reports being upset that she slipped in her own urine while in seclusion and demonstrates a mild right knee abrasion and some soreness though no limping was noted while walking. Possible mild swelling right greater than left. Reports had prior assessment of knee at [facility]. Patient demanding Lunesta for sleep and it was difficult to explain to the patient the process of non-formulary request. Indicated to patient that increase oral Abilify to slow taper was needed and she reluctantly agreed. Sleep: 3 hours, "never good, my body aches." Appetite: "too good" Suicidal and homicidal ideation: denies Auditory hallucinations/Visual hallucinations: denies Other Psychotic Symptoms: as above Anxiety: very well Depression: denies Mental Status Exam Appearance: Neat/well groomed Attitude: Cooperative, Guarded, Hostile/Threatening (mild hostility) Behavior: Distractible Affect: Labile Mood: Irritable Thought Process/Associations: Tangential Speech Production: Normal Speech Rate: Normal Speech Articulation: Normal Thought Content: Negativistic, Somatic preoccupation, Suspicious, Perseveration Danger to Self/Suicidal Ideati: None Danger to Others: None Delusions: Paranoid (Endorses), Somatic (Endorses) Hallucinations: Auditory (Denies), Visual (Denies) Consciousness: Hyper-vigilant Orientation: Person, Place, Date, Situation Memory: Grossly Intact Estimate Intellectual Function: Average Basis for IQ estimate: Awareness current events, Word use/vocabulary, Educational history Attention/Concentration & Cogn: Impaired Insight: Limited Judgement: Poor Result Diagram: 06/12/16 1738 06/12/16 1738 Mental Health Plan The patient is a 56-year-old female with a recent psychiatric hospitalization on the [facility] (admitted 05/01/2016 and discharged on 05/19/2016). The patient had been discharged to [facility], but she had been unable to follow expectations and was demonstrating symptoms of decompensation. On admission, she presented with multiple symptoms of bipolar disorder with psychosis including distractibility pressured speech racing thoughts grandiose and paranoid delusions, increased activity, and poor interpersonal boundaries with impaired judgment and insight. The patient was admitted on a revocation of a less restrictive order following failure to comply with her less restrictive order. She has been tried on a number of medications but stabilized on a combination of aripiprazole 20 mg daily and Depakote 750 mg. The patient has consistently refused Depakote and so has been continued on a combination of lorazepam and aripiprazole. The patient received her first dose of Abilify Maintena 400 mg on April 26, 2016 and her second dose on May 26, 2016. The patient has demonstrated improved stability over the last few days and was agreeable to a meeting with [facility] staff to discuss concerns and expectations. [facility] staff reported, following the meeting, that she could return there when medically stable. Patient will need improved insight and sleep prior to return there. The patient continues to report "allergies" to medications due to weight gain and is refusing to take them. She has consistently refused depakote for this reason. She lists quetiapine an olanzapine in this same category. With the taper of oral aripiprazole, she has become increasingly irritable. test was not found in admission labs, so was rechecked and found to be negative. [place] I. Bipolar disorder, manic, with psychotic features, Posttraumatic stress disorder, Polysubstance use disorder, in early remission. [place] II. Deferred. [place] III. Hypertension, Insulin-dependent diabetes mellitus, hypothyroidism, and obesity. [place] IV. Unknown. [place] V. Current Global Assessment of Functioning is 30 Medications 1. Lorazepam 1 mg daily and 2mg at bedtime and 1mg twice daily as needed. 2. Abilify Maintena 400 mg IM monthly, 1st given April 26, 2016, last given on 05/26/16 3. Aripiprazole 10mg on 06/07 4. Benadryl 50 mg q6hr prn anx/agit 5. Atorvastatin 40 mg daily. 6. Glipizide 10 mg twice daily. 7. Metformin 1000 mg twice daily. 8. Levothyroxine 200 mcg daily. 9. Albuterol metered dose inhaler as needed. 10. Lisinopril 5 mg daily. 11. Pantoprazole 40 mg daily. 12. Ibuprofen 800 mg three times a day as needed. 13. Temazepam 45mg po nighlty PRN insomnia 14. Quetiapine 100mg po q4 hour PRN Treatments 1. The patient is admitted to the inpatient unit and will be provided a safe and secure environment. 2. The patient is denying current active suicidality and is not in need of a one-to-one at this time. 3. The patient is encouraged to participate with group and milieu activities. 4. The patient will be seen by the treatment team on a daily basis to assess symptoms, side effects and response to treatment. 5. The patient will be continued on her current medications. 6. Check CBC, CMP and beta-hCG 7. Increase oral aripiprazole to 15mg daily 9. Return to [facility] when medically stable. 10. Non-formulary request for Lunesta 1mg nightly prn 11. Due to medication non-adherence and decompensation, 180 O paperwork filed. Jez Stephens MD June 12, 2016 22:26
[2016-06-13] MEDS: LORazepam 1 mg Tablet PO PRN ×3 (02:13→23:27)
[2016-06-13] MEDS: HYDROcodone-APAP 5-325 mg Tablet PO PRN ×3 (02:13→22:53)
[2016-06-13] MEDS: diphenhydrAMINE 50 mg Capsule PO PRN ×2 (02:34→22:39)
--- NOTE | 2016-06-13 06:06 | NUR ---
Nursing Note 11pm to 7am Supervisor Edging Pt with multiple episodes of wakefulness despite prns of Restoril 45 mg at, Ativan 2mg po at 2324, Seroquel 100mg, Benadryl 50 mg, Motrin 800 mg at 0240 and Hydrocodone 5/325 at 0344. Pt paced unit during the night but was not angry or labile as yesterday. Monitored pt. with q15 minute face checks for safety location and accountability
[2016-06-13] MEDS: Pantoprazole 40 mg ER24 Tablet PO SCH (08:20)
[2016-06-13] MEDS: LORazepam 1 mg Tablet PO SCH (08:24)
[2016-06-13 09:56] VITALS: BP 154/87; PULSE 88; RESP 18
--- NOTE | 2016-06-13 14:59 | NUR ---
Nursing Note [id number] Behavior S/O: Pt con't to be labile in mood. Pt active in unit activities. Pt has good appetite. She con't to be intrusive with other patients. Pt con't to be very busy on unit. Pt in court today. Court was continued until Sunday. Pt became tearful during court. A: Pt appears to be hypomanic. P: Provide supportive environment. Monitor medications & effects.
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
--- NOTE | 2016-06-13 17:54 | NUR ---
Observations [id number] Pt was awake coloring in the dining room upon start of shift. She began the day very upset regarding court and being able to leave. "I need to go climb a mountain and go shopping." Pt was re-directable when agitated, as her vocalization of her desire to leave was upsetting other patients. Pt attended group, working on art and listening to music. She continues to fixate on her , and negative past experiences in her life. Pt attended all meals, eating 100% breakfast, 30% lunch and 100% dinner. Pt was observed every 15 minutes of shift as directed.
--- NOTE | 2016-06-13 19:28 | NUR ---
Nurses Note Evening "I'm not you know". Patient has maintained behavioral control but has been loud, euphoric and hyperactive. Patient calms somewhat with attention and redirection. She has been less hostile with peers interacting appropriately. Will encourage improved insight into illness,importance of medication compliance. Addendum: 06/13/16 at 2030 by SUZETTE VALDES RN Amended: Links added.
[2016-06-13] MEDS: LORazepam 2 mg Tablet PO SCH (21:00)
--- NOTE | 2016-06-13 22:33 | PCM.PNPSY ---
Subjective Date of Service June 13, 2016 Subjective The patient has been irritable but redirectable. When asked about irritability last night, she stated, "that's a lie." She reports that she has "7 dinkey engine firer working on the case" and is not concerned about 180 day order but agreed to continuance. She reports that her broken finger has less swelling and pain. She denies side effects. Sleep: 1.75 hours, "not that good" Appetite: "okay" Suicidal and homicidal ideation: denies Auditory hallucinations/Visual hallucinations: denies Other Psychotic Symptoms: as above Anxiety: denies Depression: denies Current Medications Current Medications Aripiprazole 15 mg DAILY PO Last administered on 06/13/16t 08:20; Admin Dose 15 MG; Start 06/13/16 at 08:30 Mental Status Exam Appearance: Neat/well groomed Attitude: Cooperative, Guarded, Hostile/Threatening (mild hostility) Behavior: Distractible Affect: Labile Mood: Irritable Thought Process/Associations: Tangential Speech Production: Normal Speech Rate: Normal Speech Articulation: Normal Thought Content: Negativistic, Somatic preoccupation, Suspicious, Perseveration Danger to Self/Suicidal Ideati: None Danger to Others: None Delusions: Paranoid (Endorses), Somatic (Endorses) Hallucinations: Auditory (Denies), Visual (Denies) Consciousness: Hyper-vigilant Orientation: Person, Place, Date, Situation Memory: Grossly Intact Estimate Intellectual Function: Average Basis for IQ estimate: Awareness current events, Word use/vocabulary, Educational history Attention/Concentration & Cogn: Impaired Insight: Limited Judgement: Poor Result Diagram: 06/12/16 1738 06/12/16 1738 Mental Health Plan The patient is a 56-year-old female with a recent psychiatric hospitalization on the [facility] (admitted 05/01/2016 and discharged on 05/19/2016). The patient had been discharged to [facility], but she had been unable to follow expectations and was demonstrating symptoms of decompensation. On admission, she presented with multiple symptoms of bipolar disorder with psychosis including distractibility pressured speech racing thoughts grandiose and paranoid delusions, increased activity, and poor interpersonal boundaries with impaired judgment and insight. The patient was admitted on a revocation of a less restrictive order following failure to comply with her less restrictive order. She has been tried on a number of medications but stabilized on a combination of aripiprazole 20 mg daily and Depakote 750 mg. The patient has consistently refused Depakote and so has been continued on a combination of lorazepam and aripiprazole. The patient received her first dose of Abilify Maintena 400 mg on April 26, 2016 and her second dose on May 26, 2016. The patient has demonstrated improved stability over the last few days and was agreeable to a meeting with [facility] staff to discuss concerns and expectations. [facility] staff reported, following the meeting, that she could return there when medically stable. Patient will need improved insight and sleep prior to return there. The patient continues to report "allergies" to medications due to weight gain and is refusing to take them. She has consistently refused depakote for this reason. She lists quetiapine an olanzapine in this same category. With the taper of oral aripiprazole, she has become increasingly irritable and has responded to an increase in oral medication with decreased lability. Linville Linville I. Bipolar disorder, manic, with psychotic features, Posttraumatic stress disorder, Polysubstance use disorder, in early remission. Linville II. Deferred. Linville III. Hypertension, Insulin-dependent diabetes mellitus, hypothyroidism, and obesity. Linville IV. Unknown. Linville V. Current Global Assessment of Functioning is 30 Medications 1. Lorazepam 1 mg daily and 2mg at bedtime and 1mg twice daily as needed. 2. Abilify Maintena 400 mg IM monthly, 1st given April 26, 2016, last given on 05/26/16 3. Aripiprazole 10mg on 06/07 4. Benadryl 50 mg q6hr prn anx/agit 5. Atorvastatin 40 mg daily. 6. Glipizide 10 mg twice daily. 7. Metformin 1000 mg twice daily. 8. Levothyroxine 200 mcg daily. 9. Albuterol metered dose inhaler as needed. 10. Lisinopril 5 mg daily. 11. Pantoprazole 40 mg daily. 12. Ibuprofen 800 mg three times a day as needed. 13. Temazepam 45mg po nighlty PRN insomnia 14. Quetiapine 100mg po q4 hour PRN Treatments 1. The patient is admitted to the inpatient unit and will be provided a safe and secure environment. 2. The patient is denying current active suicidality and is not in need of a one-to-one at this time. 3. The patient is encouraged to participate with group and milieu activities. 4. The patient will be seen by the treatment team on a daily basis to assess symptoms, side effects and response to treatment. 5. The patient will be continued on her current medications. 6. Check CBC, CMP and beta-hCG on 06/13/16 7. Increase oral aripiprazole to 15mg daily and consider increase to 20mg 9. Return to [facility] when medically stable. 10. Non-formulary request for Lunesta 1mg nightly prn 11. Due to medication non-adherence and decompensation, 180 O paperwork filed. Jez Stephens MD June 13, 2016 22:33
[2016-06-14] MEDS: HYDROcodone-APAP 5-325 mg Tablet PO PRN ×2 (00:31→18:38)
--- NOTE | 2016-06-14 06:12 | NUR ---
Nursing 11p-7a Pt hostile and pressured tonight. "What are those [facility] doctors doing! They are lying to me. I need to sleep. They are in kindergarten!" Pt grimacing and making hands into fists as she makes these statements. Pt angrily stated "I will take the Seroquel because I need to sleep. They know it makes me fat! They just want me to gain wait so that I won't be recognized in the pornography!" Pt did request and receive Seroquel 100 mg po prn agitation/sleep. Along with prn [place] 1 tab po for pain 11/21 "It hurts so bad!" Pt fighting sleep and falling asleep at dining room table but insisting she needs to look at her bills. Pt eventually retired to her room and was noted to be asleep 0245. She had improved sleep tonight compared to the last couple nights of 3+ hours. She remains asleep at current time.
[2016-06-14] MEDS: Pantoprazole 40 mg ER24 Tablet PO SCH (08:12)
[2016-06-14] MEDS: LORazepam 1 mg Tablet PO SCH (08:14)
[2016-06-14] MEDS: Magnesium Hydroxide 10 mL Oral Concentration PO PRN (10:16)
--- NOTE | 2016-06-14 10:40 | NUR ---
Nursing Day Shift- S- "I took Seroquel last night because I needed to sleep, but I'm allergic to it and I feel out of it today. I did sleep till 7. All those meds are right. Thank you." O- Pt. took PRN Seroquel last PM and slept 4 hours. She appeared calm at breakfast, and took all of her medications except for Ativan. Pt. has been taking it as a PRN at her request. A- Calmer after Seroquel last PM., Delusional and paranoid. P- Cont. BHTP.
[2016-06-14 12:20] VITALS: BP 148/85; PULSE 80; RESP 16
--- NOTE | 2016-06-14 17:53 | NUR ---
Obs Dayshift Pt has little to no climate change analyst the last couple weeks. Pt is very labile, tangential, happy, angry, sobbing, laughing. Pt is inappropriate at times, overly helpful, loud, disruptive. Good ADL's, Good meals
[2016-06-14] MEDS: LORazepam 1 mg Tablet PO PRN (18:39)
--- NOTE | 2016-06-14 18:39 | DRSVH ---
PROCEDURE: X-RAY RIGHT KNEE, THREE VIEWS ([id number]) INDICATIONS: GROUND LEVEL FALL TECHNIQUE: 3 views of the knee were acquired. COMPARISON: [facility], , KNEE 3V RIGHT, 12/20/2011, 10:06. FINDINGS: Bones: No fractures or dislocations. No suspicious bony lesions. Soft tissues: Suspect small suprapatellar bursal joint effusion. No suspicious soft tissue calcific ations. There is soft tissue swelling over the infrapatellar space ventral to the patellar tendon bu t no foreign body in this area is found. IMPRESSION: A small degree of degenerative knee joint osteoarthritic change can be seen, no acute, t o the osseous structures is found. There is, however, mild swelling in the soft tissues ventral to t he patellar tendon. There may be a small joint effusion in the suprapatellar bursal space. Please note that if hidden osseous injury or meniscal/ligamentous injury involving the knee would be most accurately detected by MR scanning. Dictated by: Javier Butts M.D. on 06/14/2016 at 18:36 Approved by: Javier Butts M.D. on 06/14/2016 at 18:38
--- NOTE | 2016-06-14 18:39 | NUR ---
Nurses PRN Patient requested and received Ativan 2mg increasing agitation,Hydrocodone 1 tab for knee pain,will assess response.
--- NOTE | 2016-06-14 19:11 | NUR ---
Nurses Note Evening Patient remains hyperverbal,hyperactive intrusive,loud and easily agitated.Patient has had several episodes of crying while on the phone. She remains medication compliant with scheduled medications with minimal improvement in emotional and behavioral controls.Will encourage improved insight,coping skills with management of symptoms.
[2016-06-14] MEDS: LORazepam 2 mg Tablet PO SCH (21:00)
--- NOTE | 2016-06-14 22:28 | PCM.PNPSY ---
Subjective Date of Service June 14, 2016 Subjective Patient was quite angry after meeting with staff attorney. Patient upset that we suggested that she needs Depakote to help stabilize her mood. She stated that aripiprazole was all she needed and that she had a team of 7 skein mercerizing machine operator that would be getting her out of the hospital. Patient reported ongoing right knee pain and requested X-ray. Right knee still appears swollen compared to the left. According to 11p-7a nursing notes the patient reported, "I will take the Seroquel because I need to sleep. They know it makes me fat! They just want me to gain wait so that I won't be recognized in the pornography!" Sleep: 3+ hours, did not get Lunesta Appetite: eating meals Suicidal and homicidal ideation: denies Auditory hallucinations/Visual hallucinations: denies Other Psychotic Symptoms: as above Current Medications Current Medications Aripiprazole 15 mg DAILY PO Last administered on 06/14/16t 08:13; Admin Dose 15 MG; Start 06/13/16 at 08:30 Mental Status Exam Appearance: Neat/well groomed Attitude: Guarded, Hostile/Threatening Behavior: Overtly anxious, Distractible Affect: Labile Mood: Irritable Thought Process/Associations: Tangential Speech Production: Normal Speech Rate: Normal Speech Articulation: Normal Thought Content: Negativistic, Somatic preoccupation, Suspicious, Perseveration Danger to Self/Suicidal Ideati: None Danger to Others: None Delusions: Paranoid (Endorses), Somatic (Endorses) Hallucinations: Auditory (Denies), Visual (Denies) Consciousness: Hyper-vigilant Orientation: Person, Place, Date, Situation Memory: Grossly Intact Estimate Intellectual Function: Average Basis for IQ estimate: Awareness current events, Word use/vocabulary, Educational history Attention/Concentration & Cogn: Impaired Insight: Limited Judgement: Poor Result Diagram: 06/12/16 1738 06/12/16 1738 Mental Health Plan The patient is a 56-year-old female with a recent psychiatric hospitalization on the [facility] (admitted 05/01/2016 and discharged on 05/19/2016). The patient had been discharged to [facility], but she had been unable to follow expectations and was demonstrating symptoms of decompensation. On admission, she presented with multiple symptoms of bipolar disorder with psychosis including distractibility pressured speech racing thoughts grandiose and paranoid delusions, increased activity, and poor interpersonal boundaries with impaired judgment and insight. The patient was admitted on a revocation of a less restrictive order following failure to comply with her less restrictive order. She has been tried on a number of medications but stabilized on a combination of aripiprazole 20 mg daily and Depakote 750 mg. The patient has consistently refused Depakote and so has been continued on a combination of lorazepam and aripiprazole. The patient received her first dose of Abilify Maintena 400 mg on April 26, 2016 and her second dose on May 26, 2016. The patient has demonstrated improved stability over the last few days and was agreeable to a meeting with [facility] staff to discuss concerns and expectations. [facility] staff reported, following the meeting, that she could return there when medically stable. Patient will need improved insight and sleep prior to return there. The patient continues to report "allergies" to medications due to weight gain and is refusing to take them. She has consistently refused Depakote for this reason. She lists quetiapine an olanzapine in this same category. Despite the increase in aripiprazole, she remains quite irritable, delusional with little insight into her need for alternate treatment. Patient's right knee appears swollen but no obvious decrease in mobility, but patient endorses pain. Lancing Lancing I. Bipolar disorder, manic, with psychotic features, Posttraumatic stress disorder, Polysubstance use disorder, in early remission. Lancing II. Deferred. Lancing III. Hypertension, Insulin-dependent diabetes mellitus, hypothyroidism, and obesity. Lancing IV. Unknown. Lancing V. Current Global Assessment of Functioning is 30 Medications 1. Lorazepam 1 mg daily and 2mg at bedtime and 1mg twice daily as needed. 2. Abilify Maintena 400 mg IM monthly, 1st given April 26, 2016, last given on 05/26/16 3. Aripiprazole 15mg 4. Benadryl 50 mg q6hr prn anx/agit 5. Atorvastatin 40 mg daily. 6. Glipizide 10 mg twice daily. 7. Metformin 1000 mg twice daily. 8. Levothyroxine 200 mcg daily. 9. Albuterol metered dose inhaler as needed. 10. Lisinopril 5 mg daily. 11. Pantoprazole 40 mg daily. 12. Ibuprofen 800 mg three times a day as needed. 13. Temazepam 45mg po nighlty PRN insomnia 14. Quetiapine 100mg po q4 hour PRN 15. Lunesta 1-2mg po nighty prn insomnia Treatments 1. The patient is admitted to the inpatient unit and will be provided a safe and secure environment. 2. The patient is denying current active suicidality and is not in need of a one-to-one at this time. 3. The patient is encouraged to participate with group and milieu activities. 4. The patient will be seen by the treatment team on a daily basis to assess symptoms, side effects and response to treatment. 5. The patient will be continued on her current medications. 6. Consider increasing oral aripiprazole to 20mg 7. Return to [facility] when medically stable. 8. Non-formulary request for Lunesta 1-2mg nightly prn 9. Due to medication non-adherence and decompensation, 180 O paperwork filed. Jez Stephens MD June 14, 2016 22:28 Jez Stephens MD June 14, 2016 22:28
--- NOTE | 2016-06-15 04:24 | NUR ---
nursing, nights, 11-7 s- i need my lunesta. it's the only thing that that puts me out. i know it was ordered. now i'm really pissed. they are going to pay. i've never heard of a hospital not having lunesta. ok i'll try that. thank you. i'm still mad. my hip hurts. i need my pain medication. can i pace ? just a little bit. thank you. o- has appeared to sleep [id number] and [id number]. otherwise has alternated between her room and the dinning room. demanding and explosive at times. received hs ativan and 800 mg motrin at 2345, restoril 45 mg at 0150, ativan 2 mg and 650 mg of tylenol. is currently pacing the lam. assessed q 15 minutes. a- inadequate sleep, moderately manic and pressured, emotionally labile, no apparent physical distress. p- monitor behavior/emotional state, quality, times and amount of sleep, use and effect of medication. yolanda
[2016-06-15] MEDS: LORazepam 1 mg Tablet PO PRN (04:30)
[2016-06-15] MEDS: diphenhydrAMINE 50 mg Capsule PO PRN (06:30)
[2016-06-15] MEDS ORDERED: LUNESTA 1 MG PO PRN (06:43)
[2016-06-15] MEDS: Pantoprazole 40 mg ER24 Tablet PO SCH (08:22)
[2016-06-15 08:31] VITALS: BP 142/77; PULSE 76; RESP 17
--- NOTE | 2016-06-15 11:20 | NUR ---
[id number]. nurs. S/O: Pt presenting with controlled behaviour and calm mood in am, pt giving very detailed description of her subject choices in several neatly and attractively composed collages that would suggest pt able to spend the time and focus in preparation. Pt taking meds as prescribed except for wanting to wait before taking am ativan until felt anxious. Pt c/o lower back sciatica and R. knee pain 08/21 , requesting and given motrin 800mg at 1021. Pt out on patio engaging in ball games later morning without c/o pain. A:Pt with social when approached some caregiving but not intrusive with advise. Pt with smiling affect, less pressured, No episodes of lability or adversely reacting to stimulus to time of report. P:CNCP Addendum: 06/15/16 at 1436 by RYAN QUINTEROS RN Pt became agitated on seeing court rel. staff on unit and escalated with loud, accusatory verbal references and then started to verbally express hyper sexualized content and move around unit restlessly was not distracted by enc. to other activities on unit , accepted ativan 1 mg at 1411, and staff providing close to 1:1 attention and enc. to pt to take up her usual positive activities of interest on unit. Pt appearing calmer and less loud at 1435.
[2016-06-15] MEDS: HYDROcodone-APAP 5-325 mg Tablet PO PRN (12:24)
[2016-06-15] MEDS: LORazepam 1 mg Tablet PO SCH (14:11)
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
--- NOTE | 2016-06-15 19:05 | NUR ---
Theology Teacher/Counselor: S: "I'm preparing for my wedding." O: Patient only slept 2 hours last night as per staff. She denies S/I and H/I. She denies auditory and visual hallucinations. She did not rate depression and anxiety. A: Patient is cooperative, anxious, distractible, labile, tangential, paranoid, suspicious, limited insight, poor judgment. P: Follow the care plan, coordinate with out-patient providers.
--- NOTE | 2016-06-15 20:31 | PCM.PNPSY ---
Subjective Date of Service June 15, 2016 Subjective Patient was quite angry after meeting with corporate associate attorney. She was again talking about her "7 attorneys" that would get her released and she was therefore not concerned. She was informed that her knee x-ray showed arthritis but no fracture and became enraged, yelling "Liar!" Patient calmed with encouragement and began talking about her wedding and her and alternately when she gets with her new . Patient informed that Lunesta requires prior authorization and 30 day trial of two approved medications, which has, as of yet, not occurred. She was talking to resident and medical student about her planned gowns and invited them to her impending wedding as bridesmaids. Sleep: 2+ hours Appetite: good Suicidal and homicidal ideation: denies Auditory hallucinations/Visual hallucinations: denies Anxiety: about court Depression: none reported Mental Status Exam Appearance: Neat/well groomed Attitude: Guarded, Hostile/Threatening Behavior: Overtly anxious, Distractible Affect: Labile Mood: Irritable Thought Process/Associations: Tangential Speech Production: Loud Speech Rate: Pressured Speech Articulation: Normal Thought Content: Negativistic, Somatic preoccupation, Suspicious, Perseveration , Erotomanic Danger to Self/Suicidal Ideati: None Danger to Others: None Delusions: Paranoid (Endorses), Somatic (Endorses) Hallucinations: Auditory (Denies), Visual (Denies) Consciousness: Hyper-vigilant Orientation: Person, Place, Date, Situation Memory: Grossly Intact Estimate Intellectual Function: Average Basis for IQ estimate: Awareness current events, Word use/vocabulary, Educational history Attention/Concentration & Cogn: Impaired Insight: Limited Judgement: Poor Result Diagram: 06/12/16 1738 06/12/16 1738 Mental Health Plan The patient is a 56-year-old female with a recent psychiatric hospitalization on the [facility] (admitted 05/01/2016 and discharged on 05/19/2016). The patient had been discharged to [facility], but she had been unable to follow expectations and was demonstrating symptoms of decompensation. On admission, she presented with multiple symptoms of bipolar disorder with psychosis including distractibility pressured speech racing thoughts grandiose and paranoid delusions, increased activity, and poor interpersonal boundaries with impaired judgment and insight. The patient was admitted on a revocation of a less restrictive order following failure to comply with her less restrictive order. She has been tried on a number of medications but stabilized on a combination of aripiprazole 20 mg daily and Depakote 750 mg. The patient has consistently refused Depakote and so has been continued on a combination of lorazepam and aripiprazole. The patient received her first dose of Abilify Maintena 400 mg on April 26, 2016 and her second dose on May 26, 2016. The patient has demonstrated improved stability over the last few days and was agreeable to a meeting with [facility] staff to discuss concerns and expectations. [facility] staff reported, following the meeting, that she could return there when medically stable. Patient will need improved insight and sleep prior to return there. The patient continues to report "allergies" to medications due to weight gain and is refusing to take them. She has consistently refused Depakote for this reason. She lists quetiapine an olanzapine in this same category but is reluctantly taking quetiapine to help with sleep. Despite the increase in aripiprazole, she remains quite irritable, delusional with little insight into her need for alternate treatment. Patient's right knee appears swollen but no obvious decrease in mobility and no evidence of fracture on radiograph. Calera Calera I. Bipolar disorder, manic, with psychotic features, Posttraumatic stress disorder, Polysubstance use disorder, in early remission. Cal[place] II. Deferred. Calera III. Hypertension, Insulin-dependent diabetes mellitus, hypothyroidism, and obesity. Cal[place] IV. Unknown. Cal[place] V. Current Global Assessment of Functioning is 30 Medications 1. Lorazepam 1 mg daily and 2mg at bedtime and 1mg twice daily as needed. 2. Abilify Maintena 400 mg IM monthly, 1st given April 26, 2016, last given on 05/26/16 3. Aripiprazole 15mg 4. Benadryl 50 mg q6hr prn anx/agit 5. Atorvastatin 40 mg daily. 6. Glipizide 10 mg twice daily. 7. Metformin 1000 mg twice daily. 8. Levothyroxine 200 mcg daily. 9. Albuterol metered dose inhaler as needed. 10. Lisinopril 5 mg daily. 11. Pantoprazole 40 mg daily. 12. Ibuprofen 800 mg three times a day as needed. 13. Temazepam 45mg po nighlty PRN insomnia 14. Quetiapine 100mg po q4 hour PRN 15. Lunesta 1-2mg po nighty prn insomnia Treatments 1. The patient is admitted to the inpatient unit and will be provided a safe and secure environment. 2. The patient is denying current active suicidality and is not in need of a one-to-one at this time. 3. The patient is encouraged to participate with group and milieu activities. 4. The patient will be seen by the treatment team on a daily basis to assess symptoms, side effects and response to treatment. 5. The patient will be continued on her current medications. 6. Consider increasing oral aripiprazole to 20mg 7. Return to [facility] when medically stable. 8. Non-formulary request for Lunesta 1-2mg nightly prn 9. Due to medication non-adherence and decompensation, 180 O paperwork filed. Jez Stephens MD June 15, 2016 20:30
[2016-06-15] MEDS: LORazepam 2 mg Tablet PO SCH (22:09)
--- NOTE | 2016-06-15 22:23 | NUR ---
NURS Note [id number] S: "They've been saying they are getting me Lunesta for weeks. They are a bunch of liars. They're going to get their asses sued." "Mylene has hired me as a peer counselor for the unit, I'll be working with you soon." O: Pt appears emotionally volatile, fluctuating between tearful, angry, and joyful. Affect is at times menacing. Pt speaking in loud, at times threatening, and monotone voice. Pt seen cheering loudly in front of [employer] game. Pt continue to use loud voice despite staff requesting her to be quiet. Gave PRN temazepam for sleep and scheduled lorazepam. Pt states that she will take quetiapine if needed. A: Pt appears manic, energy seems to be ramping up. P: Continue with treatment plan. Continue to monitor behavior. Addendum: 06/15/16 at 2303 by VIET DUDLEY RN Pt has patches of red, irritated skin on abdomen. Pt given Calmoseptine for irritated skin.
[2016-06-16] MEDS: HYDROcodone-APAP 5-325 mg Tablet PO PRN ×3 (01:50→19:15)
[2016-06-16] MEDS: LORazepam 1 mg Tablet PO PRN ×2 (04:19→17:09)
[2016-06-16] MEDS: diphenhydrAMINE 50 mg Capsule PO PRN ×2 (04:19→23:40)
--- NOTE | 2016-06-16 04:55 | NUR ---
Nursing Noc Pt remains intrusive, hypersexual, and labile, manic with pressured speech. New Rx for sleep aid received with zero obvious effectiveness observed. Pt noted to have 3.5 hours broken sleep this shift. Pt awoke at 0400 and noted to be shaky and drooling. Pt reports body ache all over and thinks it was the Zyprexa she received last week.
[2016-06-16] MEDS: Pantoprazole 40 mg ER24 Tablet PO SCH (07:44)
[2016-06-16] MEDS: LORazepam 1 mg Tablet PO SCH ×2 (07:45→09:55)
[2016-06-16 09:20] VITALS: BP 158/92; PULSE 78; RESP 16
--- NOTE | 2016-06-16 11:37 | NUR ---
Nursing Day Shift- S- "How are you today Art?, Tamika Fortune, Tamika Nolen. It's a great day. I'm doing great." O- Pt. was awake at the start of the day shift. Staff reported that she had slept 3.5 hours, but the Pt. reported she had slept 7.5 hours. She was polite with a hypomanic edge to her behavior. Pt. took her medications other then Ativan. She attended court and presented as labile, but without disruptive outbursts. Eating well. A- Cont. to be Labile, reactive, and resistant to multiple medications. Poor de alcholizer of sleep hours. P- Pt. was placed on a 180 day LRO with up to 30 days inpatient. Cont. BHTP.
--- NOTE | 2016-06-16 14:54 | NUR ---
Nursing Day shift: PRN meds: Violet requested and received ibupofen 800 mg at 0800 for leg pain. At 0945, pt stated that it had not been effective. Received Hydrocodone and Ativan before court for pain at 8 and anxiety 05/22. AT 1400, Pt stated that Hydrocodone was effective for pain relief.
--- NOTE | 2016-06-16 18:42 | NUR ---
[facility] Day Shift Pt continues to have difficulty maintaining behavioral control throughout the shift. Pt affect remains labile. Pt spends most of the shift attempting to interact with staff and peers in the dining room, obsessively cleaning every surface in the dining room, and relaying stories from her past to anyone who will listen. Pt remains somewhat intrusive with staff and peers, albeit to a lesser extent than noted on previous shifts. Pt attended community meeting and sporadically participated in unit activities throughout the shift. Pt attended all meals and ate approx 100% of all meals.
--- NOTE | 2016-06-16 20:19 | NUR ---
Casework Specialist/Counselor: S/O: Patient only slept 3.5 hours last night as per staff. She denies S/I and H/I. She denies auditory and visual hallucinations. She did not rate depression and anxiety. A: Patient is cooperative, anxious, distractible, labile, tangential, paranoid, suspicious, limited insight, poor judgment. P: Follow the care plan, coordinate with out-patient providers.
--- NOTE | 2016-06-16 22:26 | PCM.PNPSY ---
Subjective Date of Service June 16, 2016 Subjective Patient was quite angry about court, reporting that this scenario writer was lying about her not having a team of 7 attorneys, upcoming wedding, reported though unseen fiance, etc. Patient glaring and pushing a bible at this scenario writer during court. Patient indicated that we were again lying when we indicated that she had been staying in a trailer during previous discharges on their property when there was a [employer] order with her . Patient again later fixated on seeing the knee x-rays and believing that they had been "switched" as they did not have the fracture that she knew she had. Sleep: 3.5+ hours Appetite: good Suicidal and homicidal ideation: denies Auditory hallucinations/Visual hallucinations: denies Other psychotic symptoms: paranoia as above. Anxiety: about court Depression: none reported Current Medications Current Medications Diazepam 10 mg HS PRN PO Last administered on 06/16/16t 00:53; Admin Dose 10 MG ; Start 06/16/16 at 00:48 Mental Status Exam Appearance: Neat/well groomed Attitude: Guarded, Hostile/Threatening Behavior: Overtly anxious, Distractible Affect: Labile Mood: Irritable Thought Process/Associations: Tangential Speech Production: Loud Speech Rate: Pressured Speech Articulation: Normal Thought Content: Negativistic, Somatic preoccupation, Suspicious, Perseveration , Erotomanic Danger to Self/Suicidal Ideati: None Danger to Others: None Delusions: Paranoid (Endorses), Somatic (Endorses) Hallucinations: Auditory (Denies), Visual (Denies) Consciousness: Hyper-vigilant Orientation: Person, Place, Date, Situation Memory: Grossly Intact Estimate Intellectual Function: Average Basis for IQ estimate: Awareness current events, Word use/vocabulary, Educational history Attention/Concentration & Cogn: Impaired Insight: Limited Judgement: Poor Result Diagram: 06/12/16 1738 06/12/16 1738 Mental Health Plan The patient is a 56-year-old female with a recent psychiatric hospitalization [facility] (admitted 05/01/2016 and discharged on 05/19/2016). The patient had been discharged to [facility], but she had been unable to follow expectations and was demonstrating symptoms of decompensation. On admission, she presented with multiple symptoms of bipolar disorder with psychosis including distractibility pressured speech racing thoughts grandiose and paranoid delusions, increased activity, and poor interpersonal boundaries with impaired judgment and insight. The patient was admitted on a revocation of a less restrictive order following failure to comply with her less restrictive order. She has been tried on a number of medications but stabilized on a combination of aripiprazole 20 mg daily and Depakote 750 mg. The patient has consistently refused Depakote and so has been continued on a combination of lorazepam and aripiprazole. The patient received her first dose of Abilify Maintena 400 mg on April 26, 2016 and her second dose on May 26, 2016. The patient has demonstrated improved stability over the last few days and was agreeable to a meeting with [facility] staff to discuss concerns and expectations. [facility] staff reported, following the meeting, that she could return there when medically stable. Patient will need improved insight and sleep prior to return there. The patient continues to report "allergies" to medications due to weight gain and is refusing to take them. She has consistently refused Depakote for this reason. She lists quetiapine and olanzapine in this same category but is reluctantly taking quetiapine to help with sleep. Despite the increase in aripiprazole, she remains quite irritable, delusional with little insight into her need for alternate treatment. Patient's right knee appears swollen but no obvious decrease in mobility and no evidence of fracture on radiograph. [place] I. Bipolar disorder, manic, with psychotic features, Posttraumatic stress disorder, Polysubstance use disorder, in early remission. [place] II. Deferred. [place] III. Hypertension, Insulin-dependent diabetes mellitus, hypothyroidism, and obesity. [place] IV. Unknown. [place] V. Current Global Assessment of Functioning is 30 Medications 1. Lorazepam 1 mg daily and 2mg at bedtime and 1mg twice daily as needed. 2. Abilify Maintena 400 mg IM monthly, 1st given April 26, 2016, last given on 05/26/16 3. Aripiprazole 15mg 4. Benadryl 50 mg q6hr prn anx/agit 5. Atorvastatin 40 mg daily. 6. Glipizide 10 mg twice daily. 7. Metformin 1000 mg twice daily. 8. Levothyroxine 200 mcg daily. 9. Albuterol metered dose inhaler as needed. 10. Lisinopril 5 mg daily. 11. Pantoprazole 40 mg daily. 12. Ibuprofen 800 mg three times a day as needed. 13. Temazepam 45mg po nighlty PRN insomnia 14. Quetiapine 100mg po q4 hour PRN 15. Lunesta 1-2mg po nighty prn insomnia Treatments 1. The patient is admitted to the inpatient unit and will be provided a safe and secure environment. 2. The patient is denying current active suicidality and is not in need of a one-to-one at this time. 3. The patient is encouraged to participate with group and milieu activities. 4. The patient will be seen by the treatment team on a daily basis to assess symptoms, side effects and response to treatment. 5. The patient will be continued on her current medications. 6. Increase aripiprazole to 20mg 7. Return to [facility] when medically stable. 8. Non-formulary request for Lunesta 1-2mg nightly prn 9. Due to medication non-adherence and decompensation, 180 O paperwork filed. Jez Stephens MD June 16, 2016 22:26
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
[2016-06-16] MEDS: LORazepam 2 mg Tablet PO SCH (23:41)
[2016-06-17] MEDS: LORazepam 1 mg Tablet PO PRN ×2 (03:49→23:41)
[2016-06-17] MEDS: HYDROcodone-APAP 5-325 mg Tablet PO PRN (04:57)
--- NOTE | 2016-06-17 06:03 | NUR ---
Nursing note: shift supervisor rn/sleep, prns Patient awake and just finished taking a shower at beginning of shift. Patient continues hyperverbal with grandiose statements re her wealthy boyfriend and his team of nature photographer, plan to get on his "private beach" Patient with numerous somatic concerns, chronic pain in back, hip, shoulder, itchy skin,blister on toe, on and on. Patient received Motrin 800mg, Benadryl 50 mg along with new order of Lunesta for sleep. Patient is annoyed stating "I take 5 mg, not 1 mg, I am over 200 lbs. Patient did retire to bed and slept until 0345. Patient again walking the halls, requesting additional Ativan for anxiety. Patient returned to bed briefly, but up again at 0500 requesting Moncure for her body aches. Continues with fragmented sleep.
[2016-06-17] MEDS: LORazepam 1 mg Tablet PO SCH ×2 (08:05→13:07)
[2016-06-17] MEDS: Pantoprazole 40 mg ER24 Tablet PO SCH (08:06)
[2016-06-17] MEDS: ARIPiprazole 10 mg Tablet PO SCH (08:06)
[2016-06-17] MEDS: Magnesium Hydroxide 10 mL Oral Concentration PO PRN (08:16)
--- NOTE | 2016-06-17 13:02 | NUR ---
Nursing Day Shift- S- "My fiance has 7 national sales director working on this. That ., he will get his. I'm not supposed to take that much Abilify." O- Pt. had slept 5 hours per report. She was delusional, but pleasant. Pt. took her medications. She requested Ibuprofen 600 mg for 10/10 knee pain, then Ativan 1 mg at 1315 to help with a nap. A- Calmer with increased sleep. Delusional, labile, and paranoid. P- Cont. BHTP
[2016-06-17] MEDS: Multivit-Miner-Folic Acid-Iron Tablet PO SCH (14:16)
[2016-06-17 15:26] LABS: BASOPHILS % (AUTO) 0.4 % (0-3); EOSINOPHILS % (AUTO) 3.2 % (0-5); Mean Corpuscular Hemoglobin 28.3 pg (27.0-35.0); Mean Corpuscular Volume 82.7 fL (81-100); Platelet Count 423 bil/L (150-400)
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
--- NOTE | 2016-06-17 18:17 | NUR ---
OBSERVATIONS Pt status remains largely unchanged. Pt continues to be manic, entitled, and labile with periodic verbal outbursts of anger. Pt participated in groups and was social with peers. Pt is perseverating on her "." Pt states that she doesn't trust anyone here and she believes she is feeling so groggy because someone on the unit is tampering with her food. Pt believes that her daughter brought in the Lunesta for her. Maintained Q15 checks for safety as directed.
--- NOTE | 2016-06-17 18:20 | NUR ---
Ice Scraper./ c.m. S.:"I'm tired right now but otherwise I'm real good. I have a lot of things to do... I need HIV test." O.: met with pt. and MD together. Pt. slept better last night. She denied SI/HI, denied AH/VH, denied paranoid/delusional thoughts, denied depression or anxiety. She talked about her "fiance" and her future "wedding". She also was sure that she was "" and asked for HIV test. She was in and out of her room talking about her future plans. A.: pt. is cooperative, pleasant, confused, grandiose, paranoid and delusional. P.: monitor behavior, monitor for safety; follow care plan.
[2016-06-17] MEDS: LORazepam 2 mg Tablet PO SCH (21:00)
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
[2016-06-17] MEDS: diphenhydrAMINE 50 mg Capsule PO PRN (23:41)
[2016-06-17] MEDS: LUNESTA 3 MG PO PRN (23:41)
[2016-06-18] MEDS: HYDROcodone-APAP 5-325 mg Tablet PO PRN ×4 (00:51→23:06)
[2016-06-18] MEDS: Multivit-Miner-Folic Acid-Iron Tablet PO SCH (07:55)
[2016-06-18] MEDS: Pantoprazole 40 mg ER24 Tablet PO SCH (07:56)
[2016-06-18] MEDS: ARIPiprazole 10 mg Tablet PO SCH (07:56)
[2016-06-18 13:03] VITALS: BP 153/96; PULSE 75; RESP 18
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
--- NOTE | 2016-06-18 14:37 | PCM.PNPSY ---
Subjective Date of Service June 18, 2016 Subjective I spent 30 minutes both reviewing treatment plan with clinical team, interviewing the patient and providing supportive/educational psychotherapy. I spent more than 50% of the time counseling Malu was able to tolerate the entire session. She shared how she has been successful on the unit over this past week. Malu reports improvement in her thought organization and mood stability. She was genuinely pleasant. She was pressured in her speech when talking about past betrayals . Her eye contact was appropriate. Staff reports that she has been redirectable. She reportedly only slept 1 hour. When I talked to her about this she is still unwilling to change any of the sleep medications. The more time I spent talking with Violet the more her thoughts tend to drift into a period delusional territory Current Medications Current Medications Aripiprazole 20 mg DAILY PO Last administered on 06/18/16 07:56; Admin Dose 20 MG; Start 06/17/16 at 08:30 Patient Own Medication 1 ea HS PRN PO Last administered on 06/17/16 23:41; Admin Dose 1 EA; Start 06/17/16 at 21:00 Prenat Multivit/ Thurston/Iron/Folic Ac 1 tablet DAILY PO Last administered on 07:55; Admin Dose 1 TABLET; Start 06/17/16 at 13:15 Mental Status Exam Vital Signs Vital Signs Date Time Temp Pulse Resp B/P Pulse Ox O2 Delivery O2 Flow Rate FiO2 06/18/16 13:03 36.6 75 18 153/96 Appearance: Neat/well groomed Attitude: Cooperative, Guarded Behavior: Distractible Affect: Well Modulated/Appropriate, Restricted Mood: Anxious (mild) Thought Process/Associations: Goal Directed Speech Production: Normal Speech Rate: Normal Speech Articulation: Normal Thought Content: Negativistic, Somatic preoccupation, Suspicious, Perseveration , Erotomanic Danger to Self/Suicidal Ideati: None Danger to Others: None Delusions: Paranoid (Endorses), Somatic (Endorses) Hallucinations: Auditory (Denies) Consciousness: Hyper-vigilant Orientation: Person, Place, Date, Situation Memory: Grossly Intact Estimate Intellectual Function: Average Basis for IQ estimate: Awareness current events, Word use/vocabulary, Educational history Attention/Concentration & Cogn: Impaired Insight: Limited Judgement: Poor Result Diagram: 06/17/16 1520 06/12/16 5123 Mental Health Plan The patient is a 56-year-old female with a recent psychiatric hospitalization on the [facility] (admitted 05/01/2016 and discharged on 05/19/2016). She presented with multiple symptoms of bipolar mood disorder with psychosis including distractibility pressured speech racing thoughts grandiose and paranoid delusions, a high degree of activity, and poor interpersonal boundaries. She suffers from poorly controlled bipolar disorder. She has been tried on a number of medications but had been stabilized on a combination of aripiprazole 20 mg daily and Depakote 750 mg. She started aripiprazole Maintena and was started on 400 mg on April 26, 2016. Despite discharge to [facility] She had reportedly rapidly deteriorated and presented to the emergency room within 72 hours of discharge from our unit. She has a history of multiple inpatient hospitalizations and this appears to be her 13th admission to the [facility] alone. I have been away from the unit for the past 7 days. She continues to have multiple symptoms of bipolar mood disorder with psychosis including distractibility pressured speech racing thoughts grandiose and paranoid delusions, a high degree of activity, and poor interpersonal boundaries. This sounds as if she is untreated, but this is the best that I have ever seen Violet. The intensity of all the above symptoms has markedly decreased. She would certainly benefit from mood stabilizer such as Depakote or Tegretol. She would certainly benefit from a change to an antipsychotic such as Risperdal or Haldol. She is refusing any of these. She has a tendency to escalate first verbally and then physically. The condition is chronic and has been present for the past several decades. At present she is calm and willing to take staff redirection. She continues to present with little insight into her mental illness or need for medications. Rio Rio I. Bipolar disorder, manic, with psychotic features, Posttraumatic stress disorder, Polysubstance use disorder, in early remission. Rio II. Deferred. Rio III. Hypertension, Insulin-dependent diabetes mellitus, hypothyroidism, and obesity. Rio IV. Unknown. Rio V. Current Global Assessment of Functioning is 30 Medications Aripiprazole 20mg Abilify Maintena 400 mg IM monthly, 1st given April 26, 2016, last given on 05/26, next due on 06/26/2016. Atorvastatin 40 mg daily. Albuterol metered dose inhaler as needed. Diazepam 10 mg nightly when necessary insomnia not addressed by Lunesta. Diphenhydramine 50 mg by mouth every 6 hours when necessary itching Glipizide 10 mg twice daily Guaifenesin 200 mg every 4 hours when necessary cough Ibuprofen 800 mg three times a day as needed. Levothyroxine 200 mcg daily. Lisinopril 5 mg daily. Lorazepam 1 mg daily and 2mg at bedtime and 1mg twice daily as needed. 2 mg IM backup Metformin 1000 mg twice daily Pantoprazole 40 mg daily. Lunesta 3mg po nighty prn insomnia vitamin. Quetiapine 100mg po q4 hour PRN with olanzapine 10 mg IM backup. Treatments 1. The patient is admitted to the inpatient unit and will be provided a safe and secure environment. 2. The patient is denying current active suicidality and is not in need of a one-to-one at this time. 3. The patient is encouraged to participate with group and milieu activities. 4. The patient will be seen by the treatment team on a daily basis to assess symptoms, side effects and response to treatment. 5. The patient will be continued on her current medications. 6. Continue current medications 7. Non-formulary request for Lunesta modified to 3 mg nightly prn insomnia 8. Due to medication non-adherence and decompensation, patient received 180 day less restrictive order with 30 days inpatient stay. Liam Dobbins MD June 18, 2016 14:37
[2016-06-18] MEDS: LORazepam 1 mg Tablet PO PRN ×2 (15:36→15:40)
--- NOTE | 2016-06-18 19:41 | NUR ---
NURSING NOTE [id number] Mood: "anxious" *trembling* Affect: pressured, loud, agitated Behavior: furiously cleaning the common areas at start of shift using paper towels and water. Began to read bible verses in a loud, shaky voice in the DR and requested Ativan PRN from this assembly instructions writer. This assembly instructions writer offered her (2) 1 mg tabs of Ativan, per order, and the pt. took a 1 mg tab and refused the other, stating "that'll make me too tired." She then began to yell at this assembly instructions writer that this assembly instructions writer was "trying to sneak an extra one into me!" and approached the NS and shouted to other staff in the NS about this assembly instructions writer "trying to give me extra drugs!" I want to report her! Reassurance provided but pt. not receptive. She has been intrusive w/other pts; coming to the NS to advocate to staff for them re: their medications, their diagnoses, their showers/other needs on unit. Dinner FSBS was 112. Thought processes: continues to be delusional; insists she is , threatens to have her team of lead ramp service man "take care of" various staff here. PRNs Ativan 1 mg @ 15:40 Motrin 800 mg @ 17:36 for 10/10 R knee pain
[2016-06-18] MEDS: LORazepam 2 mg Tablet PO SCH (21:19)
[2016-06-18] MEDS: diphenhydrAMINE 50 mg Capsule PO PRN (23:05)
[2016-06-18] MEDS: LUNESTA 3 MG PO PRN (23:22)
[2016-06-19] MEDS: LORazepam 1 mg Tablet PO PRN (00:56)
[2016-06-19] MEDS: Magnesium Hydroxide 10 mL Oral Concentration PO PRN ×2 (02:28→08:25)
[2016-06-19] MEDS: HYDROcodone-APAP 5-325 mg Tablet PO PRN ×2 (03:11→10:07)
--- NOTE | 2016-06-19 05:35 | NUR ---
Nursing Note [facility] 11pm to 7am Pt up pacing the unit the majority of shift, affect angry and mood irritable at times. Pt caretaking peers, making requests for them and coaching them on what to ask for. Pt given multiple prn medications for sleep, anxiety and pain with little effect, asked for repeats frequently, Is there anything else I can take, Do I have anything due yet? Pt slept not more than 15 minutes this shift. Monitored pt with q 15 minute face checks for safety location and accountability
[2016-06-19] MEDS: Pantoprazole 40 mg ER24 Tablet PO SCH (08:22)
[2016-06-19] MEDS: ARIPiprazole 10 mg Tablet PO SCH (08:23)
[2016-06-19] MEDS: Multivit-Miner-Folic Acid-Iron Tablet PO SCH (08:24)
[2016-06-19 08:30] VITALS: BP 131/76; PULSE 72; RESP 19
[2016-06-19] MEDS: LORazepam 1 mg Tablet PO SCH (08:30)
--- NOTE | 2016-06-19 15:04 | NUR ---
Nursing Note [id number] S/O: Pt has good appetite. Blood sugar this morning was 141. Pt took a short nap this morning. Pleasant with staff. Intrusive with giving other patients advice. Conversation tracking clear & organized that is loud & pressured. A: Pt con't to be hypomanic. P: Provide supportive environment. Monitor medications & effects.
--- NOTE | 2016-06-19 15:15 | PCM.PNPSY ---
Subjective Date of Service June 19, 2016 Subjective I spent 30 minutes both reviewing treatment plan with clinical team, interviewing the patient and providing supportive/educational psychotherapy. I spent more than 50% of the time counseling Malu was again with able to tolerate the entire session. 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 She has a lot of pride in her abilities to work. Malu reports continued improvement in her thought organization and mood stability. She was genuinely pleasant. She was pressured in her speech when talking about past upset here on the unit. Her eye contact was appropriate. Staff reports that she has been redirectable. She reportedly only slept 15min. When I talked to her about this she is still unwilling to change any of the sleep medications. The more time I spent talking with Violet the more her thoughts tend to drift into a period delusional territory Current Medications Current Medications Patient Own Medication 1 ea HS PRN PO Last administered on 06/18/16t 23:22; Admin Dose 1 EA; Start 06/17/16 at 21:00 Mental Status Exam Vital Signs Vital Signs Date Time Temp Pulse Resp B/P Pulse Ox O2 Delivery O2 Flow Rate FiO2 06/19/16 08:30 39.7 72 19 131/76 Appearance: Neat/well groomed Attitude: Cooperative, Guarded Behavior: Distractible Affect: Well Modulated/Appropriate, Restricted Mood: Anxious (mild) Thought Process/Associations: Goal Directed Speech Production: Normal Speech Rate: Normal Speech Articulation: Normal Thought Content: Negativistic, Somatic preoccupation, Suspicious, Perseveration , Erotomanic Danger to Self/Suicidal Ideati: None Danger to Others: None Delusions: Paranoid (Endorses), Somatic (Endorses) Hallucinations: Auditory (Denies) Consciousness: Hyper-vigilant Orientation: Person, Place, Date, Situation Memory: Grossly Intact Estimate Intellectual Function: Average Basis for IQ estimate: Awareness current events, Word use/vocabulary, Educational history Attention/Concentration & Cogn: Impaired Insight: Limited Judgement: Poor Result Diagram: 06/17/16 1520 Mental Health Plan The patient is a 56-year-old female with a recent psychiatric hospitalization on the [facility] (admitted 05/01/2016 and discharged on 05/19/2016). She presented with multiple symptoms of bipolar mood disorder with psychosis including distractibility pressured speech racing thoughts grandiose and paranoid delusions, a high degree of activity, and poor interpersonal boundaries. She suffers from poorly controlled bipolar disorder. She has been tried on a number of medications but had been stabilized on a combination of aripiprazole 20 mg daily and Depakote 750 mg. She started aripiprazole Maintena and was started on 400 mg on April 26, 2016. Despite discharge to [facility] She had reportedly rapidly deteriorated and presented to the emergency room within 72 hours of discharge from our unit. She has a history of multiple inpatient hospitalizations and this appears to be her 13th admission to the [facility] alone. I have been away from the unit for the past 7 days. She continues to have multiple symptoms of bipolar mood disorder with psychosis including distractibility pressured speech racing thoughts grandiose and paranoid delusions, a high degree of activity, and poor interpersonal boundaries. This sounds as if she is untreated, but this is the best that I have ever seen Violet. The intensity of all the above symptoms has markedly decreased. She would certainly benefit from mood stabilizer such as Depakote or Tegretol. She would certainly benefit from a change to an antipsychotic such as Risperdal or Haldol. She is refusing any of these. She has a tendency to escalate first verbally and then physically. The condition is chronic and has been present for the past several decades. At present she is calm and willing to take staff redirection. She continues to present with little insight into her mental illness or need for medications. Hughson Hughson I. Bipolar disorder, manic, with psychotic features, Posttraumatic stress disorder, Polysubstance use disorder, in early remission. Hughson II. Deferred. Hughson III. Hypertension, Insulin-dependent diabetes mellitus, hypothyroidism, and obesity. Hughson IV. Unknown. Hughson V. Current Global Assessment of Functioning is 30 Medications Aripiprazole 20mg Abilify Maintena 400 mg IM monthly, 1st given April 26, 2016, last given on 05/26, next due on 06/26/2016. Atorvastatin 40 mg daily. Albuterol metered dose inhaler as needed. Diazepam 10 mg nightly when necessary insomnia not addressed by Lunesta. Diphenhydramine 50 mg by mouth every 6 hours when necessary itching Glipizide 10 mg twice daily Guaifenesin 200 mg every 4 hours when necessary cough Ibuprofen 800 mg three times a day as needed. Levothyroxine 200 mcg daily. Lisinopril 5 mg daily. Lorazepam 1 mg daily and 2mg at bedtime and 1mg twice daily as needed. 2 mg IM backup Metformin 1000 mg twice daily Pantoprazole 40 mg daily. Lunesta 3mg po nighty prn insomnia vitamin. Quetiapine 100mg po q4 hour PRN with olanzapine 10 mg IM backup. Treatments 1. The patient is admitted to the inpatient unit and will be provided a safe and secure environment. 2. The patient is denying current active suicidality and is not in need of a one-to-one at this time. 3. The patient is encouraged to participate with group and milieu activities. 4. The patient will be seen by the treatment team on a daily basis to assess symptoms, side effects and response to treatment. 5. The patient will be continued on her current medications. 6. Continue current medications 7. Non-formulary request for Lunesta modified to 3 mg nightly prn insomnia 8. Due to medication non-adherence and decompensation, patient received 180 day less restrictive order with 30 days inpatient stay. Liam Dobbins MD June 19, 2016 15:15
--- NOTE | 2016-06-19 16:26 | NUR ---
Observations [id number] Pt was asleep upon start of shift. Pt presented as very tired in the morning, stating that "I'm taking too many sleeping pills. It took me until 12 to wake up." Pt attended groups and spent time on the patio, walking with a peer and playing football. Pt did have some disagreements with another peer, which upset her. She expressed concern about others talking about her, but was able to have some insight- "I'm so paranoid. Why can't I just trust people?" Pt expressed lots of concern regarding her daughter's wellbeing. Pt ate 75% of meals, as she is trying to lose weight. Pt was observed every 15 minutes of shift as directed.
[2016-06-19] MEDS: diphenhydrAMINE 50 mg Capsule PO PRN (22:50)
[2016-06-19] MEDS: LORazepam 2 mg Tablet PO SCH (22:50)
--- NOTE | 2016-06-20 05:17 | NUR ---
Nursing Note shift mechanic 11pm to 7am Pt had a difficult time getting to sleep tonight as traumatic memories of being taken away from her mother at were triggered by circumstances of peer in next room. Pt was tearful and required 1:1 emotional support and prn valium to help regulate her emotions. Pt slept from 0030 until 0500 which is a significant improvement as pt. historically sleeps less than 2 hours a night. Monitored pt. with q 15 minute face checks for safety, location and accountability
[2016-06-20] MEDS: ARIPiprazole 10 mg Tablet PO SCH (08:09)
[2016-06-20] MEDS: Pantoprazole 40 mg ER24 Tablet PO SCH (08:09)
[2016-06-20] MEDS: LORazepam 1 mg Tablet PO SCH ×2 (08:10→11:37)
[2016-06-20] MEDS: Multivit-Miner-Folic Acid-Iron Tablet PO SCH (08:10)
--- NOTE | 2016-06-20 11:23 | PCM.PNPSY ---
Subjective Date of Service June 20, 2016 Subjective I spent 30 minutes both reviewing treatment plan with clinical team, interviewing the patient and providing supportive/educational psychotherapy. I spent more than 50% of the time counseling Malu was again with able to tolerate the entire session. She shared how she finds solace in music and dancing. She is feeling that she can tolerate [employer] transitions at this time and is hoping for discharge soon. She is looking forward to cooking and hiking. She has a lot of pride in her abilities to work. Malu reports continued improvement in her thought organization and mood stability. She was genuinely pleasant. Staff reports she slept 5 hours better than she has in several weeks. She was pressured in her speech when talking about past upset here on the unit. Her eye contact was appropriate. Staff reports that she has been redirectable. Mental Status Exam Appearance: Neat/well groomed Attitude: Cooperative, Guarded Behavior: Distractible Affect: Well Modulated/Appropriate, Restricted Mood: Anxious (mild) Thought Process/Associations: Goal Directed Speech Production: Normal Speech Rate: Normal Speech Articulation: Normal Thought Content: Negativistic, Somatic preoccupation, Suspicious, Perseveration , Erotomanic Danger to Self/Suicidal Ideati: None Danger to Others: None Delusions: Paranoid (Endorses), Somatic (Endorses) Hallucinations: Auditory (Denies) Consciousness: Hyper-vigilant Orientation: Person, Place, Date, Situation Memory: Grossly Intact Estimate Intellectual Function: Average Basis for IQ estimate: Awareness current events, Word use/vocabulary, Educational history Attention/Concentration & Cogn: Impaired Insight: Limited Judgement: Limited Result Diagram: 06/17/16 1520 Mental Health Plan The patient is a 56-year-old female with a recent [facility] (admitted 05/01/2016 and discharged on 05/19/2016). She presented with multiple symptoms of bipolar mood disorder with psychosis including distractibility pressured speech racing thoughts grandiose and paranoid delusions, a high degree of activity, and poor interpersonal boundaries. She suffers from poorly controlled bipolar disorder. She has been tried on a number of medications but had been stabilized on a combination of aripiprazole 20 mg daily and Depakote 750 mg. She started aripiprazole Maintena and was started on 400 mg on April 26, 2016. Despite discharge to [employer] [facility] She had reportedly rapidly deteriorated and presented to the emergency room within 72 hours of discharge from our unit. She has a history of multiple inpatient hospitalizations and this appears to be her 13th admission to the [facility] alone. Violet appears to be stabilizing and has had a decrease in symptoms of distractibility pressured speech racing thoughts grandiose and paranoid delusions. She still struggles with poor interpersonal boundaries. The intensity of all her symptoms has markedly decreased. She would certainly benefit from mood stabilizer such as Depakote or Tegretol. She would certainly benefit from a change to an antipsychotic such as Risperdal or Haldol. She is refusing any of these. She has a tendency to escalate first verbally and then physically. The condition is chronic and has been present for the past several decades. At present she is calm and willing to take staff redirection. She continues to present with little insight into her mental illness or need for medications. Amelia Amelia I. Bipolar disorder, manic, with psychotic features, Posttraumatic stress disorder, Polysubstance use disorder, in early remission. Amelia II. Deferred. Amelia III. Hypertension, Insulin-dependent diabetes mellitus, hypothyroidism, and obesity. Amelia IV. Unknown. Amelia V. Current Global Assessment of Functioning is 35 Medications Aripiprazole 20mg Abilify Maintena 400 mg IM monthly, 1st given April 26, 2016, last given on 05/26, next due on 06/26/2016. Atorvastatin 40 mg daily. Albuterol metered dose inhaler as needed. Diazepam 10 mg nightly when necessary insomnia not addressed by Lunesta. Diphenhydramine 50 mg by mouth every 6 hours when necessary itching Glipizide 10 mg twice daily Guaifenesin 200 mg every 4 hours when necessary cough Ibuprofen 800 mg three times a day as needed. Levothyroxine 200 mcg daily. Lisinopril 5 mg daily. Lorazepam 1 mg daily and 2mg at bedtime and 1mg twice daily as needed. 2 mg IM backup Metformin 1000 mg twice daily Pantoprazole 40 mg daily. Lunesta 3mg po nighty prn insomnia vitamin. Quetiapine 100mg po q4 hour PRN with olanzapine 10 mg IM backup. Treatments 1. The patient is admitted to the inpatient unit and will be provided a safe and secure environment. 2. The patient is denying current active suicidality and is not in need of a one-to-one at this time. 3. The patient is encouraged to participate with group and milieu activities. 4. The patient will be seen by the treatment team on a daily basis to assess symptoms, side effects and response to treatment. 5. The patient will be continued on her current medications. 6. Continue current medications 7. Non-formulary request for Lunesta modified to 3 mg nightly prn insomnia 8. Due to medication non-adherence and decompensation, patient received 180 day less restrictive order with 30 days inpatient stay. Liam Dobbins MD June 20, 2016 11:23
[2016-06-20 15:18] VITALS: BP 157/86; PULSE 75; RESP 18
[2016-06-20] MEDS: LORazepam 1 mg Tablet PO PRN (15:31)
--- NOTE | 2016-06-20 18:29 | NUR ---
Nursing; Day shift: 07 to 1899 S: I don't believe that test. (In reference to the test that was negative). I will love that baby. Will raise him and send him to college. O: Violet's behavior: Pressured loud speech, intrusive toward peers, labile (laughing and crying within minutes), in constant motion. As usual, she refused scheduled ativan one mg. but requested and received it at 1137. She received another prn Ativan 1 mg at 1531 for agitated behavior. Calmed readily. PRN tylenol 600 mg at 1136 for knee pain. i don't want my room cleaned today by staff nurse. A: Paranoid. Delusional. hypomanic behavior. Poor boundaries. Anxioius. P: Assess for need for PRN med and offer. Addendum: 06/20/16 at 1903 by RENITA HARTMANN RN Amended: Links added.
--- NOTE | 2016-06-20 19:03 | NUR ---
Observations [id number] Pt was awake upon start of shift. She continues to express paranoia about other patients, concerned they could be talking about her. Pt was also very concerned regarding safety and well being of her daughters. Pt attended all meals, eating 100%. She participated in group, but continued to focus on negative experiences of the past. Pt became emotional throughout the day and also cleaned. She spoke with her daughter and granddaughter in the evening, which appeared to brighten her spirits. Pt was observed every 15 minutes of shift as directed.
[2016-06-21] MEDS: LORazepam 2 mg Tablet PO SCH ×3 (00:21→22:42)
[2016-06-21] MEDS: LUNESTA 3 MG PO PRN (00:21)
[2016-06-21] MEDS: diphenhydrAMINE 50 mg Capsule PO PRN (00:23)
[2016-06-21] MEDS: HYDROcodone-APAP 5-325 mg Tablet PO PRN ×2 (00:27→13:42)
--- NOTE | 2016-06-21 05:50 | NUR ---
Observations 1900 - 0700 Pt was in D.R., up and down hallway and in and out of her room at the start of the shift. Pt affect, thought process and mood was paranoid, hypersexual, manic, emotional, irritable, bitter, negative and suspicious. Pt is very inappropriate and intrusive with this report writer and was told several times that it was inappropriate and to please stop. Pt speech was pressured and rambling. Pt eye contact and facial expressions were very intense during this shift. Pt was intrusive with peers and staff. Pt is polite when she needs something and rude at other times. Pt required staff redirection on several occasions. Pt was accusing staff of stealing stuff out of her room which she later found and apologized. Pt washed a load of laundry. Pt wanted to take a shower a couple different times and shower was opened for her but then would get busy doing random things and never ended up showering. Pt first appeared asleep at 0045. Pt was observed every 15 minutes through the night as ordered. Pt is currently asleep with respirations apparent.
--- NOTE | 2016-06-21 06:17 | NUR ---
Nursing Noc Pt affect remains very labile Pt affect, thought process and mood was paranoid, hypersexual, manic, emotional, irritable, bitter, negative and suspicious. Pt noted to be sleeping better this shift with total of 5.25 hours plus. First noted to be asleep at 0045 and remained asleep throughout the night.
[2016-06-21] MEDS: Multivit-Miner-Folic Acid-Iron Tablet PO SCH (08:01)
[2016-06-21] MEDS: Pantoprazole 40 mg ER24 Tablet PO SCH (08:01)
[2016-06-21] MEDS: ARIPiprazole 10 mg Tablet PO SCH (08:02)
[2016-06-21] MEDS: LORazepam 1 mg Tablet PO SCH (08:06)
--- NOTE | 2016-06-21 09:40 | NUR ---
Nursing Day Shift- S- "You are all going to be sued by my fiance. He's loaded. I'm and that Abilify is to much!" O- Pt. appeared asleep at the start of the day shift. She slept 6 plus hours per report. Pt. took her medications, commented on the Abilify dose, and declined the Ativan. She continues with delusional content and grandiose verbalizations. A- No angry outbursts. Taking medications despite objection to Abilify dose. Cont. to keep busy with exercise and cleaning. P- Cont. bHTP.
[2016-06-21 10:29] VITALS: BP 153/84; PULSE 78; RESP 18
--- NOTE | 2016-06-21 13:53 | PCM.PNPSY ---
Subjective Date of Service June 21, 2016 Subjective I spent 30 minutes both reviewing treatment plan with clinical team, interviewing the patient and providing supportive/educational psychotherapy. I spent more than 50% of the time counseling Malu was again with able to tolerate the entire session. 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 She is feeling that she can tolerate [place] transitions at this time and is hoping for discharge soon. Malu reports continued improvement in her thought organization and mood stability. She was genuinely pleasant. Staff reports she slept well for Malu, 6 hours, better than she has in several weeks. She was again pressured in her speech when talking about past upset here on the unit. Her eye contact was appropriate. Staff reports that she has been redirectable. She is complaining of being over activated on Abilify. She made a reasonable case that because she is on 400 mg decanoate a month and 20 mg of Abilify per day that she feels agitated and hyperactive for several hours after taking the Abilify. She is requesting a decrease in by mouth Abilify Mental Status Exam Vital Signs Vital Signs Date Time Temp Pulse Resp B/P Pulse Ox O2 Delivery O2 Flow Rate FiO2 06/21/16 10:29 36.2 78 18 153/84 Appearance: Neat/well groomed Attitude: Pleasant, Cooperative, Other (patient pleasure and cooperative with this M.D. but sexually inappropriate and intrusive with many of our staff) Behavior: Other (patient has a high degree of intensity whether she is happy sad or angry.) Affect: Well Modulated/Appropriate Mood: Euphoric Thought Process/Associations: Goal Directed Speech Production: Normal Speech Rate: Normal Speech Articulation: Normal Thought Content: Samaritan preoccupation, Somatic preoccupation, Perseveration , Erotomanic Danger to Self/Suicidal Ideati: None Danger to Others: None Delusions: Paranoid (Endorses), Somatic (Endorses) Hallucinations: Auditory (Denies) Consciousness: Hyper-vigilant Orientation: Person, Place, Date, Situation Memory: Grossly Intact Estimate Intellectual Function: Average Basis for IQ estimate: Awareness current events, Word use/vocabulary, Educational history Attention/Concentration & Cogn: Impaired Insight: Limited Judgement: Limited Result Diagram: 06/17/16 1520 Mental Health Plan The patient is a 56-year-old female with a recent psychiatric hospitalization on the [facility] (admitted 05/01/2016 and discharged on 05/19/2016). She presented with multiple symptoms of bipolar mood disorder with psychosis including distractibility pressured speech racing thoughts grandiose and paranoid delusions, a high degree of activity, and poor interpersonal boundaries. She suffers from poorly controlled bipolar disorder. She has been tried on a number of medications but had been stabilized on a combination of aripiprazole 20 mg daily and Depakote 750 mg. She started aripiprazole Maintena and was started on 400 mg on April 26, 2016. Despite discharge to [facility] She had reportedly rapidly deteriorated and presented to the emergency room within 72 hours of discharge from our unit. She has a history of multiple inpatient hospitalizations and this appears to be her 13th [facility] to the [facility] alone. Violet appears to be stabilizing and has had a decrease in symptoms of distractibility, pressured speech, racing thoughts grandiose and paranoid delusions. She still struggles with poor interpersonal boundaries. The intensity of all her symptoms has y decreased. She would certainly benefit from mood stabilizer such as Depakote or Tegretol. She would certainly benefit from a change to an antipsychotic such as Risperdal or Haldol. She is refusing any of these. She has a tendency to escalate first verbally and then physically. The condition is chronic and has been present for the past several decades. At present she is calm and willing to take staff redirection. [place] I. Bipolar disorder, manic, with psychotic features, Posttraumatic stress disorder, Polysubstance use disorder, in early remission. [place] II. Deferred. [place] III. Hypertension, Insulin-dependent diabetes mellitus, hypothyroidism, and obesity. [place] IV. Unknown. [place] V. Current Global Assessment of Functioning is 35 Medications Decrease to Aripiprazole 10mg 06/21/2016 Abilify Maintena 400 mg IM monthly, 1st given April 26, 2016, last given on 05/26, next due on 06/26/2016. Atorvastatin 40 mg daily. Albuterol metered dose inhaler as needed. Diazepam 10 mg nightly when necessary insomnia not addressed by Giuseppeesta. Diphenhydramine 50 mg by mouth every 6 hours when necessary itching Glipizide 10 mg twice daily Guaifenesin 200 mg every 4 hours when necessary cough Ibuprofen 800 mg three times a day as needed. Levothyroxine 200 mcg daily. Lisinopril 5 mg daily. Lorazepam 1 mg daily and 2mg at bedtime and 1mg twice daily as needed. 2 mg IM backup Metformin 1000 mg twice daily Pantoprazole 40 mg daily. Lunesta 3mg po nighty prn insomnia vitamin. Quetiapine 100mg po q4 hour PRN with olanzapine 10 mg IM backup. Treatments 1. The patient is admitted to the inpatient unit and will be provided a safe and secure environment. 2. The patient is denying current active suicidality and is not in need of a one-to-one at this time. 3. The patient is encouraged to participate with group and milieu activities. 4. The patient will be seen by the treatment team on a daily basis to assess symptoms, side effects and response to treatment. 5. The patient will be continued on her current medications. 6. Continue current medications except decrease Abilify to 10 by mouth daily 7. Non-formulary request for Lunesta modified to 3 mg nightly prn insomnia 8. Due to medication non-adherence and decompensation, patient received 180 day less restrictive order with 30 days inpatient stay. Liam Dobbins MD June 21, 2016 13:53 symptoms, side effects and response to treatment. 5. The patient will be continued on her current medications. 6. Continue current medications 7. Non-formulary request for Lunesta modified to 3 mg nightly prn insomnia 8. Due to medication non-adherence and decompensation, patient received 180 day less restrictive order with 30 days inpatient stay. Liam Dobbins MD June 21, 2016 13:53
[2016-06-21] MEDS: LORazepam 1 mg Tablet PO PRN ×3 (14:46→22:38)
--- NOTE | 2016-06-21 22:46 | NUR ---
NURS Note [id number] S "I'm . They are lying about the tests." O Pt denies anxiety, depression. Pt denies SI, HI. Pt denies AH, VH. Affect is agitated, anxious, angry, and hostile. Pt has engaged in several verbal altercations with pts and staff. Pt from common areas at 1800, ate 100% of dinner in multipurpose room. A Pt remains intrusive and continues to believe that she is despite negative test. P Continue with treatment plan.
[2016-06-22] MEDS: LORazepam 1 mg Tablet PO PRN ×2 (03:40→15:09)
[2016-06-22] MEDS: diphenhydrAMINE 50 mg Capsule PO PRN (03:40)
--- NOTE | 2016-06-22 04:03 | NUR ---
nursing, nights, 11-7 s- i'm and now i'm getting a cold. i told the doctor i needed antibiotics. if he doesn't order them he's going to lose his job. my immune system is weak. i'll make you feel better. you want to go to [place] when i have my baby. we'll take my corvette or what ever i have, maybe my truck. is there any thing i can have. thank you. o- has appeared to sleep after 0030 to 0330. up making grandiose statements and demands. hostile at times. asked for and received 2 mg of ativan and 25 mg of benadryl at 0340. currently arranging things in her room and making statements to staff. assessed q 15 minutes. a- inadequate sleep, pressured at times, labile, sexually inappropriate, intrusive, no apparent physical distress. p- monitor behavior/emotional state, quality, times and amount of sleep, use and effect of medication. yolanda
[2016-06-22] MEDS: LORazepam 1 mg Tablet PO SCH (08:30)
[2016-06-22] MEDS: ARIPiprazole 10 mg Tablet PO SCH ×2 (08:30→08:32)
[2016-06-22] MEDS: Pantoprazole 40 mg ER24 Tablet PO SCH (08:31)
[2016-06-22] MEDS: Multivit-Miner-Folic Acid-Iron Tablet PO SCH (08:32)
--- NOTE | 2016-06-22 10:52 | NUR ---
Nursing Day Shift- S- "Stop visiting and get me Ibuprofen. I can barely stand on this leg!" (Pt. stated this to staff who was conversing with another Pt. in the DR.) O- Pt. appeared to be asleep in a chair in the DR at the start of the day shift. She had only slept 3 hours per report. Pt. was pressures, social, and labile with staff and peers. Pt. continues to have delusion that she is . She declined 5 MG of her scheduled 20 MG AM dose, reporting that it was making her feel hyper during the day. She requested and received ibuprofen 800 mg and Tylenol 650 mg at 1015 for knee pain rated 10/10. A- No improvement noted in the past week. P- Cont. bHTP.
--- NOTE | 2016-06-22 11:11 | PCM.PNPSY ---
Subjective Date of Service June 22, 2016 Subjective I spent 30 minutes both reviewing treatment plan with clinical team, interviewing the patient and providing supportive/educational psychotherapy. I spent more than 50% of the time counseling Malu was able to tolerate the entire session. She shared how she has a lot of pride and that this tends to get her into trouble with interpersonal relationship conflicts.. She is feeling that she can tolerate [place] transitions at this time and is hoping for discharge soon. Malu reports continued improvement in her thought organization and mood stability. She was genuinely pleasant. Staff reports she slept poorly only 3 hours. Staff report she has been pressured in her speech and when she does not get sleep she tends to be difficult to redirect with intrusive behavior and paranoid delusions. She is complaining again of being over activated on Abilify 10 mg daily. She made a reasonable case that because she is on 400 mg decanoate a month and 20 mg of Abilify per day that she feels agitated and hyperactive for several hours after taking the Abilify. She is requesting a further decrease in by mouth Abilify Mental Status Exam Appearance: Neat/well groomed Attitude: Pleasant, Cooperative, Other (patient pleasure and cooperative with this M.D. but sexually inappropriate and intrusive with many of our staff) Behavior: Distractible Affect: Well Modulated/Appropriate, Restricted Mood: Anxious (mild) Thought Process/Associations: Goal Directed Speech Production: Normal Speech Rate: Normal Speech Articulation: Normal Thought Content: Jewish preoccupation, Somatic preoccupation, Perseveration , Erotomanic Danger to Self/Suicidal Ideati: None Danger to Others: None Delusions: Paranoid (Endorses), Somatic (Endorses) Hallucinations: Auditory (Denies) Consciousness: Hyper-vigilant Orientation: Person, Place, Date, Situation Memory: Grossly Intact Estimate Intellectual Function: Average Basis for IQ estimate: Awareness current events, Word use/vocabulary, Educational history Attention/Concentration & Cogn: Impaired Insight: Limited Judgement: Limited Result Diagram: 06/17/16 1520 Mental Health Plan The patient is a 56-year-old female with a recent psychiatric hospitalization on the [facility] (admitted 05/01/2016 and discharged on 05/19/2016). She presented with multiple symptoms of bipolar mood disorder with psychosis including distractibility pressured speech racing thoughts grandiose and paranoid delusions, a high degree of activity, and poor interpersonal boundaries. She suffers from poorly controlled bipolar disorder. She has been tried on a number of medications but had been stabilized on a combination of aripiprazole 20 mg daily and Depakote 750 mg. She started aripiprazole Maintena and was started on 400 mg on April 26, 2016. Despite discharge to [facility] She had reportedly rapidly deteriorated and presented to the emergency room within 72 hours of discharge from our unit. She has a history of multiple inpatient hospitalizations and this appears to be her 13th admission to the [facility] alone. Violet appears to be stabilizing and has had a decrease in symptoms of distractibility, pressured speech, racing thoughts grandiose and paranoid delusions. She still struggles with poor interpersonal boundaries. The intensity of all her symptoms has y decreased. She would certainly benefit from mood stabilizer such as Depakote or Tegretol. She would certainly benefit from a change to an antipsychotic such as Risperdal or Haldol. She is refusing any of these. She has a tendency to escalate first verbally and then physically. The condition is chronic and has been present for the past several decades. At present she is calm and willing to take staff redirection. [place] I. Bipolar disorder, manic, with psychotic features, Posttraumatic stress disorder, Polysubstance use disorder, in early remission. [place] II. Deferred. [place] III. Hypertension, Insulin-dependent diabetes mellitus, hypothyroidism, and obesity. [place] IV. Unknown. [place] V. Current Global Assessment of Functioning is 35 Medications Decrease to Aripiprazole 5mg 06/22/2016 Abilify Maintena 400 mg IM monthly, 1st given April 26, 2016, last given on 05/26, next due on 06/26/2016. Atorvastatin 40 mg daily. Albuterol metered dose inhaler as needed. Diazepam 10 mg nightly when necessary insomnia not addressed by Kinga. Diphenhydramine 50 mg by mouth every 6 hours when necessary itching Glipizide 10 mg twice daily Guaifenesin 200 mg every 4 hours when necessary cough Ibuprofen 800 mg three times a day as needed. Levothyroxine 200 mcg daily. Lisinopril 5 mg daily. Lorazepam 1 mg daily and 2mg at bedtime and 1mg twice daily as needed. 2 mg IM backup Metformin 1000 mg twice daily Pantoprazole 40 mg daily. Lunesta 3mg po nighty prn insomnia vitamin. Quetiapine 100mg po q4 hour PRN with olanzapine 10 mg IM backup. Treatments 1. The patient is admitted to the inpatient unit and will be provided a safe and secure environment. 2. The patient is denying current active suicidality and is not in need of a one-to-one at this time. 3. The patient is encouraged to participate with group and milieu activities. 4. The patient will be seen by the treatment team on a daily basis to assess symptoms, side effects and response to treatment. 5. The patient will be continued on her current medications. 6. Continue current medications except decrease Abilify to 5 by mouth daily 7. Non-formulary request for Lunesta modified to 3 mg nightly prn insomnia 8. Due to medication non-adherence and decompensation, patient received 180 day less restrictive order with 30 days inpatient stay. Liam Dobbins MD June 22, 2016 11:11
[2016-06-22] MEDS: HYDROcodone-APAP 5-325 mg Tablet PO PRN (13:43)
[2016-06-22 14:11] VITALS: BP 117/76; PULSE 72; RESP 14
--- NOTE | 2016-06-22 18:07 | NUR ---
Industrial Relations Manager/Counselor: S: "I'm a trouble -maker." O: Patient only slept 3 hours last night as per staff. She denies S/I and H/I. She denies auditory and visual hallucinations. Depression is 0/10 and anxiety is 0/10. A: Patient is cooperative, anxious, distractible, restricted affect, delusional, erotomanic, paranoid, suspicious, hyper-vigilant, limited insight, limited judgment. P: Follow the care plan, coordinate with out-patient providers.
--- NOTE | 2016-06-22 18:24 | NUR ---
[facility] Day Shift Pt continues to have difficulty maintaining behavioral control throughout the shift. Pt affect appears labile, more so than noted on previous shifts. Pt has difficulty interacting with most peers due to emotional lability. Pt expresses paranoid and delusional concerns of being and of the construction taking place above the unit. Pt spends most of the shift restlessly pacing the unit, attempting to sanitize unit surfaces, and aggressively attempting to interact with staff and peers. Pt did not attend community meeting and passively participated in group activities throughout the shift. Pt attended all meals and ate approx 80% of all meals.
--- NOTE | 2016-06-22 23:22 | NUR ---
NURSING NOTE [id number] Mood: "I want a fucking test! You better tell someone RIGHT now!" Affect: labile; agitated and screaming at start of shift, later smiling and pleasant w/this casualty underwriter and her peers Behavior: agitated at start of shift and screaming at the NS; demanding to have a test, calmed down after PRN Ativan 1 mg. FSBS @ dinner= 115. Approached this casualty underwriter @ HS c/o low blood sugar. FSBS at 21:50 was 52. Pt. instructed to eat crackers w/peanut butter. She also drank a milk. Upon 15 min reassessment pt's FSBS was 69. Pt. then stated "I'm gonna drink another milk, you don't need to recheck me, I don't wanna be poked again, I feel fine now." Thought processes: PRNs Ibuprofen 800 mg @ 20:37 for 6/10 generalized pain
[2016-06-23] MEDS: diphenhydrAMINE 50 mg Capsule PO PRN (00:35)
[2016-06-23] MEDS: LORazepam 2 mg Tablet PO SCH ×2 (00:35→21:24)
[2016-06-23] MEDS: HYDROcodone-APAP 5-325 mg Tablet PO PRN ×2 (00:36→21:24)
--- NOTE | 2016-06-23 05:03 | NUR ---
nursing, nights, 11-7 s- i'm going to have a caesarian and i'm going to have some stitches thrown in. my hip hurts. i use this finger for this. adela and [employer] are for this. will you go in halfsies on the gas. o- has appeared to sleep after 0130. up at 0430. currently socializing with a peer in the dinning room. assessed q 15 minutes. a- inadequate sleep, less manic and labile, pressured speech, intrusive and inappropriate at times. p- monitor behavior/emotional state, quality, times and amount of sleep, use and effect of medication. yolanda
[2016-06-23] MEDS: Multivit-Miner-Folic Acid-Iron Tablet PO SCH (08:05)
[2016-06-23] MEDS: ARIPiprazole 10 mg Tablet PO SCH (08:05)
[2016-06-23] MEDS: Pantoprazole 40 mg ER24 Tablet PO SCH (08:05)
[2016-06-23] MEDS: LORazepam 1 mg Tablet PO SCH (08:06)
[2016-06-23 10:12] VITALS: BP 152/84; PULSE 67; RESP 16
--- NOTE | 2016-06-23 13:10 | NUR ---
Nursing Day Shift S: "Can I get some Tylenol for my hip?" O: Patient accepted ibuprofen 800 mg at 1250. 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 Good appetite, though consumption is slow. Bright and cheery though somewhat pressured. Active on the unit. Denies anxiety, depression, harmful thoughts, and hallucinations. A: Somewhat pressured. No agitation. P: CPOC. Monitor mood and behavior.
--- NOTE | 2016-06-23 14:02 | PCM.PNPSY ---
Subjective Date of Service June 23, 2016 Subjective I spent 30 minutes both reviewing treatment plan with clinical team, interviewing the patient and providing supportive/educational psychotherapy. I spent more than 50% of the time counseling patientValentin Toribio was able to tolerate the entire session. She shared art work and her into trouble with interpersonal relationship conflicts. She is feeling that she can tolerate [place] transitions at this time and is hoping for discharge soon. Malu reports continued improvement in her thought organization and mood stability. She was genuinely pleasant. Staff reports she slept poorly only 2hours. Staff report she has been pressured in her speech and when she does not get sleep she tends to be difficult to redirect with intrusive behavior and paranoid delusions. She is complaining again of being over activated on Abilify 10 mg daily. She made a reasonable case that because she is on 400 mg decanoate a month and 20 mg of Abilify per day that she feels agitated and hyperactive for several hours after taking the Abilify. She is requesting a further decrease in by mouth Abilify Mental Status Exam Vital Signs Vital Signs Date Time Temp Pulse Resp B/P Pulse Ox O2 Delivery O2 Flow Rate FiO2 06/23/16 10:12 36.2 67 16 152/84 Appearance: Neat/well groomed Attitude: Pleasant, Cooperative, Other (patient pleasure and cooperative with this M.D. but sexually inappropriate and intrusive with many of our staff) Behavior: Distractible Affect: Well Modulated/Appropriate, Restricted Mood: Anxious (mild) Thought Process/Associations: Goal Directed Speech Production: Normal Speech Rate: Normal Speech Articulation: Normal Thought Content: Hinduism preoccupation, Somatic preoccupation, Perseveration , Erotomanic Danger to Self/Suicidal Ideati: None Danger to Others: None Delusions: Paranoid (Endorses), Somatic (Endorses) Hallucinations: Auditory (Denies) Consciousness: Hyper-vigilant Orientation: Person, Place, Date, Situation Memory: Grossly Intact Estimate Intellectual Function: Average Basis for IQ estimate: Awareness current events, Word use/vocabulary, Educational history Attention/Concentration & Cogn: Impaired Insight: Limited Judgement: Limited Result Diagram: 06/17/16 1520 Mental Health Plan The patient is a 56-year-old female with a recent psychiatric hospitalization on the [facility] (admitted 05/01/2016 and discharged on 05/19/2016). She presented with multiple symptoms of bipolar mood disorder with psychosis including distractibility pressured speech racing thoughts grandiose and paranoid delusions, a high degree of activity, and poor interpersonal boundaries. She suffers from poorly controlled bipolar disorder. She has been tried on a number of medications but had been stabilized on a combination of aripiprazole 20 mg daily and Depakote 750 mg. She started aripiprazole Maintena and was started on 400 mg on April 26, 2016. Despite discharge to [facility] She had reportedly rapidly deteriorated and presented to the emergency room within 72 hours of discharge from our unit. She has a history of multiple inpatient hospitalizations and this appears to be her 13th admission to the [facility] alone. Violet appears to be stabilizing and has had a decrease in symptoms of distractibility, pressured speech, racing thoughts grandiose and paranoid delusions. She still struggles with poor interpersonal boundaries. The intensity of all her symptoms has y decreased. She would certainly benefit from mood stabilizer such as Depakote or Tegretol. She would certainly benefit from a change to an antipsychotic such as Risperdal or Haldol. She is refusing any of these. She has a tendency to escalate first verbally and then physically. The condition is chronic and has been present for the past several decades. At present she is calm and willing to take staff redirection. [place] I. Bipolar disorder, manic, with psychotic features, Posttraumatic stress disorder, Polysubstance use disorder, in early remission. [place] II. Deferred. [place] III. Hypertension, Insulin-dependent diabetes mellitus, hypothyroidism, and obesity. [place] IV. Unknown. [place] V. Current Global Assessment of Functioning is 35 Medications Decrease to Aripiprazole 5mg 06/22/2016 Abilify Maintena 400 mg IM monthly, 1st given April 26, 2016, last given on 05/26, next due on 06/26/2016. Atorvastatin 40 mg daily. Albuterol metered dose inhaler as needed. Diazepam 10 mg nightly when necessary insomnia not addressed by Kinga. Diphenhydramine 50 mg by mouth every 6 hours when necessary itching Glipizide 10 mg twice daily Guaifenesin 200 mg every 4 hours when necessary cough Ibuprofen 800 mg three times a day as needed. Levothyroxine 200 mcg daily. Lisinopril 5 mg daily. Lorazepam 1 mg daily and 2mg at bedtime and 1mg twice daily as needed. 2 mg IM backup Metformin 1000 mg twice daily Pantoprazole 40 mg daily. Lunesta 3mg po nighty prn insomnia vitamin. Quetiapine 100mg po q4 hour PRN with olanzapine 10 mg IM backup. Treatments 1. The patient is admitted to the inpatient unit and will be provided a safe and secure environment. 2. The patient is denying current active suicidality and is not in need of a one-to-one at this time. 3. The patient is encouraged to participate with group and milieu activities. 4. The patient will be seen by the treatment team on a daily basis to assess symptoms, side effects and response to treatment. 5. The patient will be continued on her current medications. 6. Continue current medications 7. Non-formulary request for Lunesta modified to 3 mg nightly prn insomnia 8. Due to medication non-adherence and decompensation, patient received 180 day less restrictive order with 30 days inpatient stay. Liam Dobbins MD June 23, 2016 14:02
--- NOTE | 2016-06-23 21:02 | NUR ---
observations 0900 to 2300 Pt affect and mood continues to be labile, manic, intrusive, hypersexual, hyperverbal and very inappropriate at times. Pt appears to be preoccupied and responding to internal stimuli. Pt speech was rapid and eye contact was good. Pt was in and out of her room most of the shift, cleaning, rearranging chairs, tables, coffee supplies, cups, condiments, etc. and pacing hallway. Pt attended meals in D.R. and ate approximately 75% of her meals. Pt continues to have poor boundaries, inappropriate with staff and peers and very intrusive. Pt needs constant staff redirection. Pt went out on patio with staff and peer to get some fresh air. Pt was observed every 15 minutes throughout the shift as ordered.
[2016-06-24] MEDS: LUNESTA 3 MG PO PRN ×2 (01:59→23:33)
--- NOTE | 2016-06-24 05:30 | NUR ---
Pt. spent from 7pm to 11pm in the common area, interacting appropriately until she was triggered by a discussion over medications at which time she became loud, hostile using foul and crude language, and threatening to [facility]. Pt received took scheduled HS meds and received [place] 5-325 1 tab pain and valium 10mg for agitation with good relief. Pt went to sleep at 2330. Pt woke up at 0130 requesting Lunesta and went back to sleep until 0500.
[2016-06-24 08:00] VITALS: BP 145/77; PULSE 71; RESP 20
[2016-06-24] MEDS: LORazepam 1 mg Tablet PO SCH ×2 (08:30→08:43)
[2016-06-24] MEDS: ARIPiprazole 10 mg Tablet PO SCH ×2 (08:30→08:43)
[2016-06-24] MEDS: Pantoprazole 40 mg ER24 Tablet PO SCH (08:46)
[2016-06-24] MEDS: Multivit-Miner-Folic Acid-Iron Tablet PO SCH (08:46)
--- NOTE | 2016-06-24 12:25 | PCM.PNPSY ---
Subjective Date of Service June 24, 2016 Subjective I spent 30 minutes both reviewing treatment plan with clinical team, interviewing the patient and providing supportive/educational psychotherapy. I spent more than 50% of the time counseling patientValentin Toribio was able to tolerate the entire session. 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 She is feeling that she can tolerate [facility] transitions at this time and is hoping for discharge soon. Malu reports continued improvement in her thought organization and mood stability. She was genuinely pleasant. At the moment I am on the positive side of her transference. The staff note that she continues to struggle with sleep. Staff reports she slept poorly only 2hours. Staff report she has been pressured in her speech and when she does not get sleep she tends to be difficult to redirect with intrusive behavior and paranoid delusions. Today she was the first time she told me about the delusion that she is . I Dr. Mu Orozco for youth readily She is complaining again of being over activated on Abilify 10 mg daily. She made a reasonable case that because she is on 400 mg decanoate a month and 20 mg of Abilify per day that she feels agitated and hyperactive for several hours after taking the Abilify. She is requesting a further decrease in by mouth Abilify Mental Status Exam Vital Signs Vital Signs Date Time Temp Pulse Resp B/P Pulse Ox O2 Delivery O2 Flow Rate FiO2 06/24/16 08:00 36.3 71 20 145/77 Appearance: Neat/well groomed Attitude: Pleasant, Cooperative, Other (patient pleasure and cooperative with this M.D. but sexually inappropriate and intrusive with many of our staff) Behavior: Distractible Affect: Well Modulated/Appropriate, Restricted Mood: Anxious (mild) Thought Process/Associations: Goal Directed Speech Production: Normal Speech Rate: Normal Speech Articulation: Normal Thought Content: Holiness preoccupation, Somatic preoccupation, Perseveration , Erotomanic Danger to Self/Suicidal Ideati: None Danger to Others: None Delusions: Paranoid (Endorses), Somatic (Endorses) Hallucinations: Auditory (Denies) Consciousness: Hyper-vigilant Orientation: Person, Place, Date, Situation Memory: Grossly Intact Estimate Intellectual Function: Average Basis for IQ estimate: Awareness current events, Word use/vocabulary, Educational history Attention/Concentration & Cogn: Impaired Insight: Limited Judgement: Limited Mental Health Plan The patient is a 56-year-old female with a recent psychiatric hospitalization on the [facility] (admitted 05/01/2016 and discharged on 05/19/2016). She presented with multiple symptoms of bipolar mood disorder with psychosis including distractibility pressured speech racing thoughts grandiose and paranoid delusions, a high degree of activity, and poor interpersonal boundaries. She suffers from poorly controlled bipolar disorder. She has been tried on a number of medications but had been stabilized on a combination of aripiprazole 20 mg daily and Depakote 750 mg. She started aripiprazole Maintena and was started on 400 mg on April 26, 2016. Despite discharge to [facility] She had reportedly rapidly deteriorated and presented to the emergency room within 72 hours of discharge from our unit. She has a history of multiple inpatient hospitalizations and this appears to be her 13th admission to the [facility]. Violet appears to be stabilizing and has had a decrease in symptoms of distractibility, pressured speech, racing thoughts grandiose and paranoid delusions. She still struggles with poor interpersonal boundaries. The intensity of all her symptoms has decreased. She would certainly benefit from mood stabilizer such as Depakote or Tegretol. She would certainly benefit from a change to an antipsychotic such as Risperdal or Haldol. She is refusing any of these. She has a tendency to escalate first verbally and then physically. The condition is chronic and has been present for the past several decades. At present she is calm and willing to take staff redirection. At the moment I am on the positive side of her transference. The staff note that she continues to struggle with sleep. Staff reports she slept poorly only 2hours Sunday night. Staff report she has been pressured in her speech and when she does not get sleep she tends to be difficult to redirect with intrusive behavior and paranoid delusions. Today she was the first time she told me about the delusion that she is . She is complaining again of being over activated on Abilify 10 mg daily. She made a reasonable case that because she is on 400 mg decanoate a month and 20 mg of Abilify per day that she feels agitated and hyperactive for several hours after taking the Abilify. She is requesting a further decrease in by mouth Abilify. Gallina Gallina I. Bipolar disorder, manic, with psychotic features, Posttraumatic stress disorder, Polysubstance use disorder, in early remission. Gallina II. Deferred. Gallina III. Hypertension, Insulin-dependent diabetes mellitus, hypothyroidism, and obesity. Gallina IV. Unknown. Gallina V. Current Global Assessment of Functioning is 35 Medications Decrease to Aripiprazole 5mg 06/22/2016 Abilify Maintena 400 mg IM monthly, 1st given April 26, 2016, last given on 05/26, next due on 06/26/2016. Atorvastatin 40 mg daily. Albuterol metered dose inhaler as needed. Diazepam 10 mg nightly when necessary insomnia not addressed by Lunesta. Diphenhydramine 50 mg by mouth every 6 hours when necessary itching Glipizide 10 mg twice daily Guaifenesin 200 mg every 4 hours when necessary cough Ibuprofen 800 mg three times a day as needed. Levothyroxine 200 mcg daily. Lisinopril 5 mg daily. Lorazepam 1 mg daily and 2mg at bedtime and 1mg twice daily as needed. 2 mg IM backup Metformin 1000 mg twice daily Pantoprazole 40 mg daily. Lunesta 3mg po nighty prn insomnia vitamin. Quetiapine 100mg po q4 hour PRN with olanzapine 10 mg IM backup. Treatments 1. The patient is admitted to the inpatient unit and will be provided a safe and secure environment. 2. The patient is denying current active suicidality and is not in need of a one-to-one at this time. 3. The patient is encouraged to participate with group and milieu activities. 4. The patient will be seen by the treatment team on a daily basis to assess symptoms, side effects and response to treatment. 5. The patient will be continued on her current medications. 6. Continue current medications 7. Non-formulary request for Lunesta modified to 3 mg nightly prn insomnia 8. Due to medication non-adherence and decompensation, patient received 180 day less restrictive order with 30 days inpatient stay. Liam Dobbins MD June 24, 2016 12:25
--- NOTE | 2016-06-24 14:15 | NUR ---
Day 0170-0229 Patient interacting with peers throughout the day. Appropriate for the most part. She likes to help clean and has been observed cleaning the common area tables. Pt gets hyper-emotional at times, especially when she talks on the phone. She did get upset this morning about her Abilify. She spit out her medications back in pill container and states her Abilify dose should have been 5mg. Abilify pills removed and documented as refused. Per MAR her dose is 20mg. Pt also reports knee and hip pain. Alternating PRN Tylenol and Ibuprofen. Pt re-directed as needed.
--- NOTE | 2016-06-24 18:27 | NUR ---
MHA Note D- Patient showered and attended all ADLs this shift. She appears well groomed. Patient ate all of her meals in the dining room with peers. She attended groups and social activities with various degrees of engagement and appropriate behavior. A- Patient was labile and intrusive this shift. She continues to make hypersexual comments and is not redirectable with certain conversation topics. Patient continues to staff split as well, yelling at certain staff members for things like her laundry (despite speaking to the wrong staff member) only to be polite. Patient also continues to get disruptive when she does not get her way with things like music, tv, games, etc. She denies any thought disturbances or suicidal/homicidal ideation. She does express delusional thoughts such as that she is , she is a peer counselor, and that she works here. P- Continue current treatment plan.
[2016-06-24] MEDS: LORazepam 1 mg Tablet PO PRN (19:12)
[2016-06-24] MEDS: LORazepam 2 mg Tablet PO SCH (21:00)
--- NOTE | 2016-06-25 05:16 | NUR ---
Nursing Note 7pm to 11pm Employment Law Specialist Pt in common area at start of shift. Staff attempted to discuss with pt that multiple peers had requesting to watch tv. Per report from day shift pt. had been rapidly cycling and seeking to control the radio station and volume all afternoon. When staff attempted to discuss this with her she became combative at the idea, yelling loudly, was angry, clenching her fists, making vulgar comments and verbally threatening staff . Male MHA was able to de-escalate pt. who eventually went to her room, buy continued to yell. When approached pt. about taking a prn medication she erupted into a verbal attack but agreed to take a po med in place of an IM. Pt took 2mg of Ativan with good relief. HS Ativan held. Pt received lunesta at 2330 with good relief. Pt got up one time during the night, had a snack and went back to bed. Monitored pt. with q15 min face checks for safety location and accountability.
[2016-06-25] MEDS: Pantoprazole 40 mg ER24 Tablet PO SCH (07:54)
[2016-06-25] MEDS: LORazepam 1 mg Tablet PO SCH ×2 (07:54→10:19)
[2016-06-25] MEDS: ARIPiprazole 10 mg Tablet PO SCH ×2 (07:54→08:30)
[2016-06-25 08:57] VITALS: BP 152/89; PULSE 87; RESP 19
[2016-06-25] MEDS: Multivit-Miner-Folic Acid-Iron Tablet PO SCH (09:00)
[2016-06-25] MEDS: LORazepam 1 mg Tablet PO PRN ×2 (13:58→18:37)
[2016-06-25] MEDS ORDERED: ARIPiprazole ER 400 mg Inj IM ONE (15:05)
--- NOTE | 2016-06-25 16:35 | NUR ---
NURS Note Day Insight: poor, "I shouldn't be in here. I'm normal." Mood: denies depression, anxiety Affect: euphoric, menacing Speech: pressured, hyper-verbal, loud Thought Process/Content: "I'm . I've got to keep myself clean. I douche with the little shampoo bottles." Delusional. Pt continue to insist that she is despite negative test and getting her period. Behavior: Pt continues with threaten staff. Intrusive with other pts. PRNs/NURS: Pt given 400 mg IM Abilify Maintena. Pt has refused PO Abilify since 06/23/2016. PRN lorazepam 1mg PO at 1358. Discussed risks of vaginal douching with patient.
--- NOTE | 2016-06-25 18:07 | PCM.PNPSY ---
Subjective Date of Service June 25, 2016 Subjective The patient was initially friendly and then became irritable when discussing the total dose of Abilify she is receiving per month and calculated to be 800- 900 mg which she feels is too much. She then went on to say that she needed an ultrasound for her baby. We discussed that she had a negative screen and she stated that it was a lie. The patient has been refusing the additional oral Abilify for the last 4 days. Her monthly aripiprazole injection is also due today and the patient initially refused saying that she needed to get the oral Abilify out of her system and then agreed to do the injection if one particular and nurse gave it to her. The patient continues to perseverate on having been in the seclusion room sometime ago and receiving olanzapine and feeling that her cracked skin is due to a single dose of olanzapine weeks ago. She was overheard loudly requesting her daughter to "Spring her out" of the hospital. She later stated that she was joking. No other side effects reported. Sleep: 3.5+ hours Appetite: Good Suicidal and homicidal ideation: Denies Auditory hallucinations: Denies Visual hallucinations: Denies Other Psychotic Symptoms: Delusions as above Anxiety: Denies Depression: Denies Current Medications Current Medications Aripiprazole 400 mg ONCE ONCE IM Last administered on 06/25/16t 15:46; Admin Dose 400 MG; Start 06/25/16 at 15:05; Stop 06/25/16 at 15:11; Status DC Mental Status Exam Appearance: Neat/well groomed Attitude: Pleasant, Cooperative, Other (initially pleasant and cooperative than angry when ultrasound declined.) Behavior: Distractible Affect: Labile Mood: Irritable Thought Process/Associations: Goal Directed Speech Production: Normal Speech Rate: Pressured Speech Articulation: Normal Thought Content: Holiness preoccupation, Somatic preoccupation, Perseveration , Erotomanic Danger to Self/Suicidal Ideati: None Danger to Others: None Delusions: Paranoid (Endorses), Somatic (Endorses) Hallucinations: Auditory (Denies), Visual (Denies) Consciousness: Hyper-vigilant Orientation: Person, Place, Date, Situation Memory: Grossly Intact Estimate Intellectual Function: Average Basis for IQ estimate: Awareness current events, Word use/vocabulary, Educational history Attention/Concentration & Cogn: Impaired Insight: Limited Judgement: Poor Mental Health Plan The patient is a 56-year-old female with a recent psychiatric hospitalization on the [facility] (admitted 05/01/2016 and discharged on 05/19/2016). The patient had been discharged to [facility], but she had been unable to follow expectations and was demonstrating symptoms of decompensation. On admission, she presented with multiple symptoms of bipolar disorder with psychosis including distractibility pressured speech racing thoughts grandiose and paranoid delusions, increased activity, and poor interpersonal boundaries with impaired judgment and insight. The patient was admitted on a revocation of a less restrictive order following failure to comply with her less restrictive order. She has been tried on a number of medications but stabilized on a combination of aripiprazole 20 mg daily and Depakote 750 mg. The patient has consistently refused Depakote and so has been continued on a combination of lorazepam and aripiprazole. The patient received her first dose of Abilify Maintena 400 mg on April 26, 2016 and her second dose on May 26, 2016. The patient has demonstrated improved stability over the last few days and was agreeable to a meeting with [facility] staff to discuss concerns and expectations. [facility] staff reported, following the meeting, that she could return there when medically stable. Patient will need improved insight and sleep prior to return there.The patient continues to report "allergies" to medications due to weight gain and is refusing to take them. She has consistently refused Depakote for this reason. She lists quetiapine and olanzapine in this same category but is reluctantly taking quetiapine to help with sleep. The patient has been refusing oral supplemental aripiprazole for several days now. She appears to have some increased irritability but it is unclear whether this is due to the lack of oral Abilify or the fact that her injection is coming up. She remains delusional regarding . Everett Everett I. Bipolar disorder, manic, with psychotic features, Posttraumatic stress disorder, Polysubstance use disorder, in early remission. Everett II. Deferred. Everett III. Hypertension, Insulin-dependent diabetes mellitus, hypothyroidism, and obesity. Everett IV. Unknown. Everett V. Current Global Assessment of Functioning is 35 Medications Decrease to Aripiprazole 5mg 06/22/2016 Abilify Maintena 400 mg IM monthly, 1st given April 26, 2016, last given on 05/26, next due on 06/26/2016. Atorvastatin 40 mg daily. Albuterol metered dose inhaler as needed. Diazepam 10 mg nightly when necessary insomnia not addressed by Lunesta. Diphenhydramine 50 mg by mouth every 6 hours when necessary itching Glipizide 10 mg twice daily Guaifenesin 200 mg every 4 hours when necessary cough Ibuprofen 800 mg three times a day as needed. Levothyroxine 200 mcg daily. Lisinopril 5 mg daily. Lorazepam 1 mg daily and 2mg at bedtime and 1mg twice daily as needed. 2 mg IM backup Metformin 1000 mg twice daily Pantoprazole 40 mg daily. Lunesta 3mg po nighty prn insomnia vitamin. Quetiapine 100mg po q4 hour PRN with olanzapine 10 mg IM backup. Treatments 1. The patient is admitted to the inpatient unit and will be provided a safe and secure environment. 2. The patient is denying current active suicidality and is not in need of a one-to-one at this time. 3. The patient is encouraged to participate with group and milieu activities. 4. The patient will be seen by the treatment team on a daily basis to assess symptoms, side effects and response to treatment. 5. The patient will be continued on her current medications. 6. Discontinue oral Abilify. 7. Due to medication non-adherence and decompensation, patient received 180 day less restrictive order with 30 days inpatient stay. Jez Stephens MD June 25, 2016 18:07
--- NOTE | 2016-06-25 19:21 | NUR ---
observations 0900 to 2129 Pt affect and mood continues to be labile, manic, intrusive, paranoid, hypersexual, hyperverbal and very inappropriate at times. Pt appears to be preoccupied and responding to internal stimuli. Pt speech was rapid, rambling and loud. Pt eye contact was good. Pt was in and out of her room most of the shift, cleaning, rearranging chairs, tables, coffee supplies, cups, condiments, etc. and pacing hallway. Pt attended meals in D.R. and ate approximately 80-90% of her meals. Pt continues to have poor boundaries, inappropriate with staff and peers. Pt is very intrusive and loud, medical technical writer talked with her about both of these. Pt continues to think that she is and gets very upset and agitated when talking to peers, friends and staff. Pt needs constant staff redirection. Pt went out on patio with staff and peers to get some fresh air. Pt was observed every 15 minutes throughout the shift as ordered.
[2016-06-25] MEDS: LORazepam 2 mg Tablet PO SCH (21:18)
[2016-06-25] MEDS: LUNESTA 3 MG PO PRN (22:58)
[2016-06-26] MEDS: HYDROcodone-APAP 5-325 mg Tablet PO PRN ×2 (01:47→22:04)
[2016-06-26] MEDS: diphenhydrAMINE 50 mg Capsule PO PRN ×2 (04:32→21:35)
[2016-06-26] MEDS: LORazepam 1 mg Tablet PO PRN ×2 (04:52→22:53)
--- NOTE | 2016-06-26 05:57 | NUR ---
Nursing Note 7pm to 7am Buddhist Monk Pt. was loud, intrusive, labile, and reactive but more easily re-directable this shift. Pt took HS Ativan without issue along with Lunesta. She was able to get 2.5 hours before waking up at 0200 requesting [place] 1 tab for hip pain and went back to bed until 0500, when she got up for the day. Monitoring ongoing
[2016-06-26 08:40] VITALS: BP 139/79; PULSE 74; RESP 15
[2016-06-26] MEDS: Multivit-Miner-Folic Acid-Iron Tablet PO SCH (09:07)
[2016-06-26] MEDS: Pantoprazole 40 mg ER24 Tablet PO SCH (09:07)
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
[2016-06-26 17:48] LABS: BASOPHILS % (AUTO) 0.4 % (0-3); EOSINOPHILS % (AUTO) 4.2 % (0-5); MONOCYTES % (AUTO) 7.9 % (4-12); Mean Corpuscular Hemoglobin 28.4 pg (27.0-35.0); Mean Corpuscular Volume 83.3 fL (81-100); NEUTROPHILS % (AUTO) 59.6 % (40-74); Platelet Count 458 bil/L (150-400)
--- NOTE | 2016-06-26 18:32 | NUR ---
Nursing: Day shift: 699 to 1899 S: You can be in my wedding as the mother of he bride. O: Malu is hypomanic in her 'busy" behavior: wiping down surfaces, intrusive and directive toward peers, pressured speech, tangential statements, short shorts attire. She is still focused on being . Out in the open unit almost all shift. Takes all meds as offered except daily Ativan one mg. A: Hypomanic. P: Continue to assess for effectiveness of current meds. Addendum: 06/26/16 at 1843 by RENITA HARTMANN RN Amended: Links added.
[2016-06-26] MEDS: LORazepam 2 mg Tablet PO SCH (21:35)
--- NOTE | 2016-06-26 22:06 | PCM.PNPSY ---
Subjective Date of Service June 26, 2016 Subjective The patient was initially friendly and then became irritable when discussing her dry hands (from using sanitizing soap) and began angrily talking about olanzapine and quetiapine causing the problem. She also continued to request an ultrasound for her baby, despite menstruating and having a negative serum test. The patient reported some body aches from aripiprazole and stated that she no longer wanted a shot and if she were made to take one, she would "romana all of them." Patient is requesting an ob exam for her "baby." Sleep: 5+ hours Appetite: "normal" Suicidal and homicidal ideation: Denies Auditory hallucinations: Denies Visual hallucinations: Denies Other Psychotic Symptoms: Delusions as above Anxiety: Denies Depression: Denies Current Medications Current Medications Aripiprazole 400 mg ONCE ONCE IM Last administered on 06/25/16t 15:46; Admin Dose 400 MG; Start 06/25/16 at 15:05; Stop 06/25/16 at 15:11; Status DC Mental Status Exam Appearance: Neat/well groomed Attitude: Cooperative, Guarded, Other (initially pleasant and cooperative than angry when ultrasound declined.) Behavior: Distractible Affect: Labile Mood: Irritable Thought Process/Associations: Goal Directed Speech Production: Normal Speech Rate: Pressured Speech Articulation: Normal Thought Content: Zoroastrian preoccupation, Somatic preoccupation, Perseveration , Erotomanic Danger to Self/Suicidal Ideati: None Danger to Others: None Delusions: Paranoid (Endorses), Somatic (Endorses) Hallucinations: Auditory (Denies), Visual (Denies) Consciousness: Hyper-vigilant Orientation: Person, Place, Date, Situation Memory: Grossly Intact Estimate Intellectual Function: Average Basis for IQ estimate: Awareness current events, Word use/vocabulary, Educational history Attention/Concentration & Cogn: Impaired Insight: Limited Judgement: Poor Result Diagram: 06/26/16 1727 06/26/16 172 Mental Health Plan The patient is a 56-year-old female with a recent psychiatric hospitalization at the [facility] (admitted 05/01/2016 and discharged on 05/19/2016). The patient had been discharged to [facility], but she had been unable to follow expectations and was demonstrating symptoms of decompensation. On admission, she presented with multiple symptoms of bipolar disorder with psychosis including distractibility pressured speech racing thoughts grandiose and paranoid delusions, increased activity, and poor interpersonal boundaries with impaired judgment and insight. The patient was admitted on a revocation of a less restrictive order following failure to comply with her less restrictive order. She has been tried on a number of medications but stabilized on a combination of aripiprazole 20 mg daily and Depakote 750 mg. The patient has consistently refused Depakote and so has been continued on a combination of lorazepam and aripiprazole. The patient received her first dose of Abilify Maintena 400 mg on April 26, 2016,her second dose on May 26, 2016, and third on June 25, 2016. Although somewhat more stable, she continues to be delusional and has recently refused oral supplementary aripiprazole. The patient continues to report "allergies" to medications due to weight gain and is refusing to take them. She has consistently refused Depakote for this reason. She lists quetiapine and olanzapine in this same category but reluctantly took quetiapine but has subsequently declined this medication. The patient has been refusing oral supplemental aripiprazole for several days now. She appears to have some increased irritability but it is unclear whether this is due to the lack of oral Abilify or the fact that her injection is coming up. She remains delusional regarding . Follow-up lab work indicates mild hyponatremia and other, minor abnormalities. [place] El[place] I. Bipolar disorder, manic, with psychotic features, Posttraumatic stress disorder, Polysubstance use disorder, in early remission. [place] II. Deferred. [place] III. Hypertension, Insulin-dependent diabetes mellitus, hypothyroidism, and obesity. [place] IV. Unknown. [place] V. Current Global Assessment of Functioning is 35 Medications Oral aripiprazole discontinued due to patient refusal. Abilify Maintena 400 mg IM monthly, 1st given April 26, 2016, last given on 06/25, next due on 07/27/2016. Atorvastatin 40 mg daily. Albuterol metered dose inhaler as needed. Diazepam 10 mg nightly when necessary insomnia not addressed by Kinga. Diphenhydramine 50 mg by mouth every 6 hours when necessary itching Glipizide 10 mg twice daily Guaifenesin 200 mg every 4 hours when necessary cough Ibuprofen 800 mg three times a day as needed. Levothyroxine 200 mcg daily. Lisinopril 5 mg daily. Lorazepam 1 mg daily and 2mg at bedtime and 1mg twice daily as needed. 2 mg IM backup Metformin 1000 mg twice daily Pantoprazole 40 mg daily. Lunesta 3mg po nighty prn insomnia vitamin. Quetiapine 100mg po q4 hour PRN with olanzapine 10 mg IM backup. Treatments 1. The patient is admitted to the inpatient unit and will be provided a safe and secure environment. 2. The patient is denying current active suicidality and is not in need of a one-to-one at this time. 3. The patient is encouraged to participate with group and milieu activities. 4. The patient will be seen by the treatment team on a daily basis to assess symptoms, side effects and response to treatment. 5. The patient will be continued on her current medications. 6. Due to medication non-adherence and decompensation, patient received 180 day less restrictive order with 30 days inpatient stay. 7. Patient not meeting criteria of LRO, will need to discuss with prosecutor regarding possible revocation. Jez Stephens MD June 26, 2016 22:06
[2016-06-26] MEDS: LUNESTA 3 MG PO PRN ×2 (22:40→22:52)
[2016-06-27] MEDS: LORazepam 1 mg Tablet PO PRN ×2 (03:58→04:54)
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
[2016-06-27] MEDS: Multivit-Miner-Folic Acid-Iron Tablet PO SCH (07:36)
[2016-06-27] MEDS: Pantoprazole 40 mg ER24 Tablet PO SCH (07:36)
[2016-06-27] MEDS: LORazepam 1 mg Tablet PO SCH ×3 (07:37→23:06)
[2016-06-27 08:20] VITALS: BP 134/85; PULSE 73; RESP 17
[2016-06-27] MEDS: diphenhydrAMINE 50 mg Capsule PO PRN (09:15)
--- NOTE | 2016-06-27 13:57 | NUR ---
Nursing Note [id number] Behavior S/O: Pt ate 100% of breakfast & lunch. Pt states, "I need to get baggier, looser clothing for the baby....The father of the baby is the captain of a fleet of ships in the [place], but he's retired now....We were childhood sweethearts." Pt busy on the unit. She refused her am dose of Ativan, but took all her other medications. Pt's blood sugar prior to breakfast was 112. A: Pt has little insight into mental illness. She remains delusional about being . P: Provide supportive environment. Monitor medications & effects.
[2016-06-27] MEDS: HYDROcodone-APAP 5-325 mg Tablet PO PRN (14:21)
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
--- NOTE | 2016-06-27 18:53 | NUR ---
Nurses Note Evening Patient remains intrusive,loud,demanding ordering patients' around.She continues with grandiose delusions and is unable be reality tested. Patient also believes she is and not accepting of a negative test. She accepts scheduled medications. Will attempt to encourage improved insight into illness and management of same. Addendum: 06/27/16 at 1905 by SUZETTE VALDES RN Amended: Links added.
[2016-06-27] MEDS: LUNESTA 3 MG PO PRN (23:06)
[2016-06-28] MEDS: HYDROcodone-APAP 5-325 mg Tablet PO PRN ×2 (02:52→23:51)
--- NOTE | 2016-06-28 05:36 | NUR ---
Sleep 11p-7a Poor sleep of 2.75 hours despite receiving all available prn sleep and anxiety medication. She woke up at 0300 yelling out c/o hip pain 11/21. She received [place] 2 tabs po with moderate results. She has remained awake keeping busy stating being busy helps with the pain. Behavior remains much the same.
[2016-06-28] MEDS: LORazepam 1 mg Tablet PO SCH ×2 (08:24→21:00)
[2016-06-28] MEDS: Pantoprazole 40 mg ER24 Tablet PO SCH (08:24)
[2016-06-28] MEDS: Multivit-Miner-Folic Acid-Iron Tablet PO SCH (08:24)
[2016-06-28] MEDS: LORazepam 1 mg Tablet PO PRN (13:08)
[2016-06-28 13:19] VITALS: BP 141/81; PULSE 70; RESP 18
--- NOTE | 2016-06-28 16:42 | NUR ---
Nursing Notes [id number] S . "I am going to be working with you soon. I am going to be a peer counselor here. " O: Pt is very intrusive today, she is demanding of other patients. Pt is not easily redirected, she . Pt is having delusions of being a peer counselor here and being hired by the community worker. Pt is having many mood swings of up and then down. A: Pt interacting with staff and other patients. Pt thought process is very disorganized. Pt has no boundaries. Pt will be started on duloxetine for depression. P: Monitor for safety and response to treatment. Follow plan of care for safety/response to treatment.
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
--- NOTE | 2016-06-28 18:15 | NUR ---
[facility] Pt continues to have difficulty maintaining behavioral control throughout the shift. Pt affect remains labile, manic. Pt spends most of the shift pacing the unit, and attempting to engage in unit activities/interact with peers. Pt remains intrusive during interactions with staff and peers. Pt continues to have difficulty controlling her emotional expression. Pt expresses delusions that she is . Pt attended community meeting and all group activities throughout the shift. Pt attended all meals and ate approx 100% of all meals.
--- NOTE | 2016-06-28 20:19 | NUR ---
Clinical Educator/Counselor: S: "A lady having to use the bathroom, huh?" O: Patient only slept 2.75 hours last night as per staff. She denies S/I and H/I. She denies auditory and visual hallucinations. Depression is 0/10 and anxiety is 0/10. A: Patient is cooperative, guarded, labile, pressured speech, erotomanic, paranoid, somatic preoccupation, hyper-vigilant, limited insight, poor judgment. P: Follow the care plan, coordinate with out-patient providers.
--- NOTE | 2016-06-28 20:30 | NUR ---
Nurses Note Evening Seclusion Patient has been hyperactive ,loud, intrusive with peers and their visitors resisting redirection, encouragement or limit setting. Patient became hostile and physically and verbally threatening to health technical writer as she attempted to push through the medication door not allowing it to close. Patient was secluded at 2030 and received Zyprexa 10mg and Ativan 2 mg IM at that time after removing her shirt for a security compliance specialist to the seclusion room. Will maintain q 15 min. checks for safety,assess medication efficacy.
--- NOTE | 2016-06-28 22:20 | NUR ---
NURS Note Evening S/O "You're a cowgirl whore." Pt became increasingly agitated as shift progresses. Staff asked pt to stop pacing and ranting in common areas to which pt responded with cursing, verbal threats, and refusing to follow staff directions. Pt was standing at medication room door when staff asked pt to step back to close the door. Pt refused and proceeded to call staff a whore. Yue larsen called in response to pt threats to staff. Pt in seclusion at 2030 and given PRN olanzapine 10 mg IM for agitation. While in seclusion, pt continued to curse, cry, and yell obscenities at staff. Pt out of seclusion at 2215. A Pt continues to display intrusive, verbally aggressive, and inappropriate behavior. P Continue with care plan. Set and reinforce clear boundaries.
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
--- NOTE | 2016-06-29 03:11 | NUR ---
nursing 11-7 seclusion s- last time you washed your hands. you f--kers, dumb sh-t, i need to use the bathroom. whore, bitch, slut, you sniff underwear. o- will sleep for brief periods then talk to herself. lifted her shirt and played with her breasts at 0230. was able to appropriately use the toilet with 2 staff supporting her at 0255. assessed for end of seclusion but began swearing at staff when expectations were explained. returned to seclusion. paced and made derogatory statements. used the toilet again at 0315 but again started swearing and threatening staff. had to be returned to seclusion. is currently ranting, pacing and exposing herself intermittently. a- can maintain appropriate behavior for brief periods to get her needs met. emotionally labile, pressured speech, screams at times, talking to herself with a inappropriate sexual content. no apparent physical distress. p- direct observation with q 15 minute assessments. encourage appropriate behavior to allow for return to the open milieu. yolanda
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
[2016-06-29] MEDS: LORazepam 1 mg Tablet PO SCH ×2 (07:23→22:22)
[2016-06-29] MEDS: Pantoprazole 40 mg ER24 Tablet PO SCH (07:23)
[2016-06-29] MEDS: Multivit-Miner-Folic Acid-Iron Tablet PO SCH (07:24)
[2016-06-29] MEDS: LORazepam 1 mg Tablet PO PRN ×3 (07:32→23:07)
--- NOTE | 2016-06-29 09:56 | NUR ---
Nursing Dayshift: S: "I swear on the Holy Bible I will be calm and good." O: Patient agreeable to taking AM meds and trying to nap this AM. Walked with the patient in the lam "I need 4 laps though please". Has been cooperating and directable when necessary. Ate well at breakfast. Is lying down in her room at present resting. Has been up and down much of the AM. Complementary to staff. A: Mildly pressured speech. Directable P: CPOC. Monitor mood and behavior. Addendum: 06/29/16 at 1730 by JOSE HERNANDEZ RN Patient has been up and out of her room much of the day. No agitation or aggression noted. Med compliant. Complementary to staff. Will continue to monitor mood and behavior.
[2016-06-29 11:00] VITALS: BP 110/69; PULSE 83; RESP 17
[2016-06-29] MEDS: DULoxetine 30 mg DR Capsule PO SCH (13:35)
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
--- NOTE | 2016-06-29 18:37 | NUR ---
Observations [id number] Pt was in seclusion upon start of shift. Pt appeared very tired and distressed regarding the fact that she believes she is . Pt continues to ask for ultrasounds. "I think I"m going to have the baby early, I'm dilating." Pt did attend group, going outside and playing football. She attended all meals, eating 100%. She was observed every 15 minutes of shift as directed.
--- NOTE | 2016-06-29 18:53 | NUR ---
Machine Operator Hay Stacker/Counselor: S: "I took a power nap and I feel awesome!" O: Patient only slept 1.5 hours last night as per staff. She denies S/I and H/I. She denies auditory and visual hallucinations. Depression is 0/10 and anxiety is 0/10. Near the end of the interview, patient became irritable and terminated the interview. A: Patient is cooperative, guarded, labile, pressured speech, erotomanic, paranoid, somatic preoccupation, hyper-vigilant, limited insight, poor judgment. P: Follow the care plan, coordinate with out-patient providers.
[2016-06-29] MEDS: LUNESTA 3 MG PO PRN (23:22)
[2016-06-30] MEDS: diphenhydrAMINE 50 mg Capsule PO PRN ×2 (00:25→23:02)
--- NOTE | 2016-06-30 01:10 | NUR ---
nursing seclusion 11-7 s- that bitch woke me up. now everyone is going to be up. no i won't be quiet. you better get back or you won't like it. your going to suffer. o- awoke at 0020 and stormed down the lam yelling loudly. bs checked and was 89. received a snack but disruptive behavior continued. became threatening when staff tried to calm and redirect her. placed in seclusion with security at 0030. received 10 mg of zyprexa im. marck paiz informed and gave orders at 0102. is currently lying on a mattress talking to her self. has direct line of sight observation with q 15 minute assessments and one to one staff. a- explosive, unpredictable, threatening, resistant to staff assistance with maintaining safe/appropriate behavior. no apparent physical distress. p- encourage and assist with regaining behavioral control to allow return to the open milieu. yolanda
--- NOTE | 2016-06-30 02:21 | NUR ---
nursing seclusion 11-7 s- i'm so f==king michael. i'll kill that bitch. i'll fuck you guys over. come here and stop acting like a child or i'll wake this whole unit up. o- awoke and demanded to use the toilet. allowed to use the toilet with 2 staff present. during debriefing she became increasingly threatening as behavioral expectations where explained requiring continued seclusion. yelled threats as loud as she could for about 5 minutes and is now lying quietly on her mattress. a- rapidly escalates with threatening behavior when demands are not met. cannot maintain safe/appropriate behavior for periods long enough to allow return to the open milieu. no apparent physical distress. p- assist with regaining behavioral control. yolanda
--- NOTE | 2016-06-30 04:35 | NUR ---
nursing seclusion 11-7 s- you better come here. fine i'll pee on the floor. now get in here and clean this up. now. let me out and i'll be normal. not going to take this shit anymore. your going to be sorry. come in here and you'll see. o- awoke at 0345 and abruptly started yelling. threatened staff on and off until returning to lay quietly on the mattress at 0430. a- threatening and behaviorally inappropriate. p- not appropriate for return to the open milieu. yolanda
--- NOTE | 2016-06-30 06:09 | NUR ---
nursing seclusion 11-7 s- i need to do laps you fat ass bitch. i'm smarter then your psychiatrist that asshole. you better let me out so i can do laps or i'll fuck you up. 0- awoke at 0450 and started to yell at staff. attempted to allow use of the toilet with security present. she threatened security which prevented her from being released from seclusion. she then preceded into a long fight of ideas/loose associations rant of her history. alternates between lying on her mattress and yelling at staff. a- threatening, demanding, disruptive. no apparent physical distress. p- assist with regaining behavioral control to allow return to the open milieu.
[2016-06-30] MEDS: Pantoprazole 40 mg ER24 Tablet PO SCH (07:57)
[2016-06-30] MEDS: DULoxetine 30 mg DR Capsule PO SCH (07:58)
[2016-06-30] MEDS: Multivit-Miner-Folic Acid-Iron Tablet PO SCH (07:58)
[2016-06-30] MEDS: LORazepam 1 mg Tablet PO PRN (10:48)
[2016-06-30] MEDS: LORazepam 1 mg Tablet PO SCH ×2 (10:48→23:02)
--- NOTE | 2016-06-30 12:11 | NUR ---
Nursing Dayshift: S: I was told I am on phone restrictions. If something happens to my grand daughter and I don't find out someone's going to be in a world of hurt." O: Patient exited seclusion at start of shift. Agreed to stay in her room until breakfast was served. Redirected a few times back to her room. Has been social with peers taking turns with 2 female peers doing each other's hair. Eating well at meals. Irritable at times regarding above statement. Denies anxiety though pressured at times. Denies depression, harmful thoughts, and hallucinations. A: Angry and irritable at times. Cooperative and directable for the most part. P: CPOC. Monitor mood and behavior.
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
--- NOTE | 2016-06-30 15:56 | NUR ---
Evaluation completed. Please go to "Notes" then click on "Assessments and Notes" (bottom left corner of screen). Then select appropriate discipline tab on top of screen.
--- NOTE | 2016-06-30 15:59 | NUR ---
Audio Video Tech/Counselor: S/O: Patient only slept .75 hours last night as per staff. She denies S/I and H/I. She denies auditory and visual hallucinations. Depression is 0/10 and anxiety is "high." A: Patient is cooperative, guarded, labile, pressured speech, erotomanic, paranoid, somatic preoccupation, hyper-vigilant, limited insight, poor judgment. P: Follow the care plan, coordinate with out-patient providers.
[2016-06-30 17:35] VITALS: BP 156/86; PULSE 70; RESP 16
--- NOTE | 2016-06-30 18:51 | NUR ---
[facility] Day Shift Pt continues to have difficulty maintaining behavioral control throughout the shift. Pt affect remains labile, manic. Pt spends most of the shift pacing the unit, and attempting to engage in unit activities/interact with peers. Pt remains intrusive during interactions with staff and peers. Pt continues to have difficulty controlling her emotional expression. Pt expresses delusions that she is . Pt attended all meals and ate approx 100% of all meals.
[2016-06-30] MEDS: LUNESTA 3 MG PO PRN (23:05)
[2016-07-01] MEDS: HYDROcodone-APAP 5-325 mg Tablet PO PRN ×2 (01:16→22:23)
--- NOTE | 2016-07-01 04:46 | NUR ---
Nursing Noc "As soon as Juan Miguel gets here, its going to be pure Hell for you." "It these drugs your giving me make my baby retarded, Im going to romana you". Pt continues to be difficult to redirect, paranoid, and delusional. Labs to be completed today and pt scheduled for Pelvic Ultrasound. Pt affect slightly improved from yesterday. Continuing to monitor mood, behavior, emotional state by Q15 minute safety checks. CP
[2016-07-01] MEDS: Multivit-Miner-Folic Acid-Iron Tablet PO SCH (08:04)
[2016-07-01] MEDS: Pantoprazole 40 mg ER24 Tablet PO SCH (08:04)
[2016-07-01] MEDS: DULoxetine 30 mg DR Capsule PO SCH (08:04)
[2016-07-01] MEDS: Magnesium Hydroxide 10 mL Oral Concentration PO PRN (08:27)
[2016-07-01] MEDS: LORazepam 1 mg Tablet PO SCH ×2 (08:30→21:38)
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
[2016-07-01] MEDS: LORazepam 1 mg Tablet PO PRN (13:59)
[2016-07-01 15:33] VITALS: BP 147/85; PULSE 67; RESP 16
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
--- NOTE | 2016-07-01 20:56 | NUR ---
OBSERVATIONS Pt was cooperative with staff. Pt is labile, will accuse other pts of plotting against her one minute and be their best friend the next, cycles through anger, elation, and deep sadness in a matter of minutes or seconds. Pt is entitled, injects herself into situations on the unit. Pt continues to believe she is despite being ensured that she is not. Pt becomes agitated and verbally aggressive when her reality is tested. Maintained Q15 checks for safety as directed.
[2016-07-01] MEDS: diphenhydrAMINE 50 mg Capsule PO PRN (21:36)
[2016-07-01] MEDS: LUNESTA 3 MG PO PRN (22:32)
[2016-07-02] MEDS: LORazepam 1 mg Tablet PO PRN ×3 (01:03→21:51)
--- NOTE | 2016-07-02 05:48 | NUR ---
Nursing Noc Still waiting for vaginal ultrasound to confirm status. Biofuels Processing Technician suspects patient will not believe findings when it confirms negative. Pt affect remains labile, and manic. Pt continues to have broken sleep and paranoid thoughts. Noted fine red rash to bilateral lower extremities possibly contact in nature, denies urticaria. Pt started new medication yesterday. Continuing to monitor mood behavior and emotional state. CP
[2016-07-02] MEDS: Multivit-Miner-Folic Acid-Iron Tablet PO SCH (07:51)
[2016-07-02] MEDS: DULoxetine 30 mg DR Capsule PO SCH (07:51)
[2016-07-02] MEDS: Pantoprazole 40 mg ER24 Tablet PO SCH (07:52)
[2016-07-02] MEDS: LORazepam 1 mg Tablet PO SCH ×2 (07:52→19:59)
--- NOTE | 2016-07-02 12:04 | DRSVH ---
PROCEDURE: US PELVIC SONOGRAM + TRANSVAGINAL SONOGRAM INDICATIONS: DISCOMFORT TECHNIQUE: Real-time scanning was performed of the pelvic organs, with image documentation. Additional endovagi nal scanning was necessary due to incomplete visualization of the adnexal and endometrial structures by transabdominal scanning. COMPARISON: None. FINDINGS: Transabdominal scanning: Limited scanning through the kidneys shows no hydronephrosis. No pathologi c free abdominal or pelvic fluid. Endovaginal scanning: Uterus: Uterus is normal in size at 8.4 x 4.7 x 3.2 cm. uterus has heterogeneous echotexture with se veral small calcifications possibly related to uterine fibroids. The endometrium measures 3.4 mm in c ombined thickness. Ovaries: Adnexa are not visualized and cannot be evaluated. IMPRESSION: 1. Suboptimal examination. Patient was unable to void and imaging was performed with a distended ur inary bladder. 2. Uterus has heterogeneous echotexture and contains several small calcifications possibly related t o uterine fibroids. 3. Endometrial complex sonographic normal. 4. Adnexa not visualized and cannot be evaluated. Dictated by: Kim Griffith MD, PhD on 07/02/2016 at 12:00 Approved by: Kim Griffith MD, PhD on 07/02/2016 at 12:03
--- NOTE | 2016-07-02 15:19 | PCM.PNPSY ---
Subjective Date of Service July 02, 2016 Subjective I spent 30 minutes both reviewing treatment plan with clinical team, interviewing the patient and providing supportive/educational psychotherapy. I spent more than 50% of the time counseling the patient. Malu reports a continued improvement in thought organization and mood stability. Staff reports that she has not required seclusion in the past 36 hours but has been hyper active and struggles to participate well in one-to-one unit and group activities due to disorganization impulsivity and distractibility. She slept 5 hours and denies depression manic or psychotic symptoms review. Staff reports continued difficulty with multiple complaints and states she is appearing quite labile intrusive and paranoid. They states she feels she is "living in the past and easily triggered". She denies medication side effects. Patient was able to identify her medications and what they were used to treat. Mental Status Exam Appearance: Neat/well groomed (Marker as lipstick) Attitude: Guarded, Other (initially pleasant and cooperative than angry when ultrasound declined.) Behavior: Distractible Affect: Labile Mood: Irritable Thought Process/Associations: Goal Directed Speech Production: Normal Speech Rate: Pressured Speech Articulation: Normal Thought Content: Judaism preoccupation, Somatic preoccupation, Perseveration , Erotomanic Danger to Self/Suicidal Ideati: None Danger to Others: None Delusions: Paranoid (Endorses), Somatic (Endorses) Hallucinations: Auditory (Denies), Visual (Denies) Consciousness: Hyper-vigilant Orientation: Person, Place, Date, Situation Memory: Grossly Intact Estimate Intellectual Function: Average Basis for IQ estimate: Awareness current events, Word use/vocabulary, Educational history Attention/Concentration & Cogn: Impaired Insight: Limited Judgement: Poor Result Diagram: 06/26/16 1727 06/30/16 1935 Mental Health Plan The patient is a 56-year-old female with a recent psychiatric hospitalization at the [facility] (admitted 05/01/2016 and discharged on 05/19/2016). The patient had been discharged to [facility], but she had been unable to follow expectations and was demonstrating symptoms of decompensation. On admission, she presented with multiple symptoms of bipolar disorder with psychosis including distractibility, pressured speech, racing thoughts, grandiose and paranoid delusions, increased activity, and poor interpersonal boundaries with impaired judgment and insight. The patient was admitted on a revocation of a less restrictive order following failure to comply with her less restrictive order. She has been tried on a number of medications but stabilized on a combination of aripiprazole 20 mg daily and Depakote 750 mg. The patient has consistently refused Depakote and so has been continued on a combination of lorazepam and aripiprazole. The patient received her first dose of Abilify Maintena 400 mg on April 26, 2016,her second dose on May 26, 2016, and third on June 25, 2016. Patient continues to be delusional and has refused oral supplementary aripiprazole. The patient continues to report "allergies" to medications due to weight gain and is refusing to take them. She has consistently refused Depakote for this reason. She is additionally refusing Trileptal as she has tried it in the past and is also "allergic" to it. She lists quetiapine and olanzapine in this same category but reluctantly took quetiapine but has subsequently declined this medication. She states that she is allergic to Zyprexa however she has no signs of allergic reaction to the medication and has received it several times without incident (although the patient reports her cracked hands are a side effect of all of these medications, rather than her constant cleaning). The patient has been refusing oral supplemental aripiprazole for several days and it was ultimately discontinued as the patient was becoming increasingly agitated. As the patient has become increasingly agitated since 06/23/16, it is likely that she is in need of more oral rather than less. She is now stating that she no longer wishes to take the Abilify Maintena. Although the patient has been refusing a mood stabilizer, given the aripiprazole in her system, it was felt that a trial of an antidepressant may reduce irritability. The patient did agree to Cymbalta, but it is too early to tell whether this has been helpful or not. She remains delusional regarding , and additionally is reporting nipple discharge and so will check a prolactin level. She has an extensive traumatic life history involving drugs, abuse, and exploitation which are compounded by her concern about her daughter who is struggling with mental illness and addiction and a granddaughter who she views as vulnerable. [place] I. Bipolar disorder, manic, with psychotic features, Posttraumatic stress disorder, Polysubstance use disorder, in early remission. [place] II. Deferred. [place] III. Hypertension, Insulin-dependent diabetes mellitus, hypothyroidism, and obesity. [place] IV. Unknown. [place] V. Current Global Assessment of Functioning is 30 Medications Abilify Maintena 400 mg IM monthly, 1st given April 26, 2016, last given on 06/25, next due on 07/27/2016. Atorvastatin 40 mg daily. Albuterol metered dose inhaler as needed. Diazepam 10 mg nightly when necessary insomnia not addressed by Lunesta. Diphenhydramine 50 mg by mouth every 6 hours when necessary itching Glipizide 10 mg twice daily Guaifenesin 200 mg every 4 hours when necessary cough Ibuprofen 800 mg three times a day as needed. Levothyroxine 200 mcg daily. Lisinopril 5 mg daily. Lorazepam 1 mg daily and 2mg at bedtime and 1mg twice daily as needed. 2 mg IM backup Metformin 1000 mg twice daily Pantoprazole 40 mg daily. Lunesta 3mg po nighty prn insomnia vitamin. Quetiapine 100mg po q4 hour PRN with olanzapine 10 mg IM backup. Cymbalta 30mg PO daily Treatments 1. The patient is admitted to the inpatient unit and will be provided a safe and secure environment on about her we will R work were admitted. 2. The patient is denying current active suicidality and is not in need of a one-to-one at this time. 3. The patient is encouraged to participate with group and milieu activities. 4. The patient will be seen by the treatment team on a daily basis to assess symptoms, side effects and response to treatment. 5. The patient will be continued on her current medications. 6. Physical Therapy Consult ordered for residual right knee pain after fall, consultation done today. 8. Prolactin level to be drawn due to report of and prolonged use of antipsychotics. 9. BMP to be drawn today to follow-up of hyponatremia 10. Case of perineal discomfort, fullness, and abdominal discomfort discussed with Dr. Arnold, Computer Systems Hardware Analyst. Pelvic US, and visual inspection recommended. US ordered. 11. Due to medication non-adherence and decompensation, patient received 180 day less restrictive order with 30 days inpatient stay. 12. Patient not meeting criteria of LRO, affidavit and paperwork filed for revocation. Liam Dobbins MD July 02, 2016 15:19
--- NOTE | 2016-07-02 15:45 | NUR ---
[id number]. nurs. S: "I still have all the pain waking me in the night and morning from that zyprexa shot they gave me! I should not have had the abilify shot again either, I was just depressed... look I am great the soniata is working... O; Pt offering her explanation for why she was not able to sleep between 6900-0730 last night. A:Pt out on unit active, restless, pressured, hyperverbal, tangential, grandiose, delusional and paranoid, interacting and cleaning. Pt did have US today and verbalizing to the tech. that "I can see that the baby is OK by the look in your eye" when provided with info that the tech was unable to provide info without being read by appropriate professional. Pt given motrin 800mg at 0912 for hip pain 11/21, no further pain complaint and ativan 1mg at 1459 after angry inappropriate altercation and verbal threats. Pt spoke with daughter on phone with staff supervision and mostly supportive and appropriate able to terminate call before took negative turn. P;CNCP
[2016-07-02 18:13] VITALS: BP 142/72; PULSE 66; RESP 18
--- NOTE | 2016-07-02 18:21 | NUR ---
[facility] Note D- Patient did not attend any structured groups or activities due to preference or behavior. She ate all of her three meals and snacks emphasizing her diabetic management. She took a shower this shift and appears well groomed. A- Patient started the shift appearing hypo-manic. Staff asked about putting music on instead of TV during breakfast as the room was quite loud. Patient then grew agitated that classical music was put on when patients were unable to agree on anything. She then began to yell and swear at this staff member stating that it was a control issue. Patient also had an explosive episode towards peers twice over various issues stating "I'll knock you out" and "bring it on, I didn't start this but I'll sure as hell end it." Patient denies any suicidal or homicidal ideation but continues to believe she is and a certified peer counselor. P- Continue current treatment plan.
[2016-07-02] MEDS: Magnesium Hydroxide 10 mL Oral Concentration PO PRN (19:42)
[2016-07-02] MEDS: diphenhydrAMINE 50 mg Capsule PO PRN (19:59)
[2016-07-02] MEDS: HYDROcodone-APAP 5-325 mg Tablet PO PRN (20:00)
[2016-07-02] MEDS: LUNESTA 3 MG PO PRN (21:56)
[2016-07-03] MEDS: HYDROcodone-APAP 5-325 mg Tablet PO PRN ×2 (01:50→23:42)
[2016-07-03] MEDS: LORazepam 1 mg Tablet PO PRN ×3 (03:29→15:59)
--- NOTE | 2016-07-03 06:17 | NUR ---
Nursing Noc Pt continues pressured, euphoric at times with quick onset of irritability. She has been able to maintain behavioral control utilizing staff, medication and coping skills such as walking, listening to music and thinking of positives in her life. She still has a tendency to perseverate on both real and perceived injustices in her past. Pt seeks out staff to have needs met. Pt has dealt with periods of extreme anxiety, hip knee pain and poor sleep through the evening and night. She has utilized all available prn medication to help with these symptoms. Medication helps for brief periods with pt acknowledging symptoms improved but symptoms return in full force within several hours. Delusional thought content continues regarding being despite ultrasound being performed and showing Malu is not . In a loud euphoric tone pt stated "Guess what! I am having a girl!" Pt not responsive to reality checking and believes staff are keeping the truth from her. Pt continues suspicious and paranoid regarding other's intentions towards her. Poor sleep with middle of the night awakening. Total sleep over 4.5 hours.
[2016-07-03 07:48] VITALS: BP 130/82; PULSE 65; RESP 19
[2016-07-03] MEDS: Pantoprazole 40 mg ER24 Tablet PO SCH (08:04)
[2016-07-03] MEDS: Multivit-Miner-Folic Acid-Iron Tablet PO SCH (08:05)
[2016-07-03] MEDS: DULoxetine 30 mg DR Capsule PO SCH (08:05)
[2016-07-03] MEDS: LORazepam 1 mg Tablet PO SCH ×2 (08:10→23:42)
[2016-07-03 13:25] LABS: APPEARANCE,URINE HAZY (CLEAR,HAZY); COLOR,URINE STRAW (YELLOW); OCCULT BLOOD,URINE NEGATIVE (NEGATIVE); UROBILINOGEN,URINE NORMAL (NORMAL)
--- NOTE | 2016-07-03 14:26 | PCM.PNPSY ---
Subjective Date of Service July 03, 2016 Subjective I spent 30 minutes both reviewing treatment plan with clinical team, interviewing the patient and providing supportive/educational psychotherapy. I spent less than 50% of the time counseling the patient because after I told her my recommendations for the court and medications she became quite agitated and loud and refused to continue talking. She threatened that I would lose all of my money from the team of rn acute that she has working on her case. Malu reports no difficulty with her thought organization or mood stability. Staff reports that she has not required seclusion in the past 36 hours but has been hyper active and struggles to participate well in one-to-one unit and group activities due to disorganization impulsivity and distractibility. She slept only 3 hours . Staff reports continued difficulty with multiple complaints and states she is appearing quite labile intrusive and paranoid. She has a delusional belief that she is . They states she feels she is "living in the past and easily triggered". She denies medication side effects. Patient was able to identify her medications and what they were used to treat. Mental Status Exam Vital Signs Vital Signs Date Time Temp Pulse Resp B/P Pulse Ox O2 Delivery O2 Flow Rate FiO2 07/03/16 07:48 36.0 65 19 130/82 Appearance: Neat/well groomed (Marker as lipstick) Attitude: Guarded, Other (initially pleasant and cooperative than angry when ultrasound declined.) Behavior: Distractible Affect: Labile Mood: Irritable Thought Process/Associations: Goal Directed Speech Production: Normal Speech Rate: Pressured Speech Articulation: Normal Thought Content: Latter Day preoccupation, Somatic preoccupation, Perseveration , Erotomanic Danger to Self/Suicidal Ideati: None Danger to Others: None Delusions: Paranoid (Endorses), Somatic (Endorses) Hallucinations: Auditory (Denies), Visual (Denies) Consciousness: Hyper-vigilant Orientation: Person, Place, Date, Situation Memory: Grossly Intact Estimate Intellectual Function: Average Basis for IQ estimate: Awareness current events, Word use/vocabulary, Educational history Attention/Concentration & Cogn: Impaired Insight: Limited Judgement: Poor Result Diagram: 06/30/16 8140 Mental Health Plan The patient is a 56-year-old female with a recent psychiatric hospitalization at the [facility] (admitted 05/01/2016 and discharged on 05/19/2016). The patient had been discharged to [facility], but she had been unable to follow expectations and was demonstrating symptoms of decompensation. On admission, she presented with multiple symptoms of bipolar disorder with psychosis including distractibility, pressured speech, racing thoughts, grandiose and paranoid delusions, increased activity, and poor interpersonal boundaries with impaired judgment and insight. The patient was admitted on a revocation of a less restrictive order following failure to comply with her less restrictive order. She has been tried on a number of medications but stabilized on a combination of aripiprazole 20 mg daily and Depakote 750 mg. The patient has consistently refused Depakote and so has been continued on a combination of lorazepam and aripiprazole. The patient received her first dose of Abilify Maintena 400 mg on April 26, 2016,her second dose on May 26, 2016, and third on June 25, 2016. Patient continues to be delusional and has refused oral supplementary aripiprazole. The patient continues to report "allergies" to medications due to weight gain and is refusing to take them. She has consistently refused Depakote for this reason. She is additionally refusing Trileptal as she has tried it in the past and is also "allergic" to it. She lists quetiapine and olanzapine in this same category but reluctantly took quetiapine but has subsequently declined this medication. She states that she is allergic to Zyprexa however she has no signs of allergic reaction to the medication and has received it several times without incident (although the patient reports her cracked hands are a side effect of all of these medications, rather than her constant cleaning). The patient has been refusing oral supplemental aripiprazole for several days and it was ultimately discontinued as the patient was becoming increasingly agitated. As the patient has become increasingly agitated since 06/23/16, it is likely that she is in need of more oral rather than less. She is now stating that she no longer wishes to take the Abilify Maintena. Although the patient has been refusing a mood stabilizer, given the aripiprazole in her system, it was felt that a trial of an antidepressant may reduce irritability. The patient did agree to Cymbalta, but it is too early to tell whether this has been helpful or not. She remains delusional regarding , and additionally is reporting nipple discharge and so will check a prolactin level. She has an extensive traumatic life history involving drugs, abuse, and exploitation which are compounded by her concern about her daughter who is struggling with mental illness and addiction and a granddaughter who she views as vulnerable. Today 07/03/2016 she became agitated with me. I had a good relationship with her for the past 3 weeks and now she is refusing to talk to me. We have reviewed the course with her staff attorney and will be scheduling a petition revocation for Sunday [place] I. Bipolar disorder, manic, with psychotic features, Posttraumatic stress disorder, Polysubstance use disorder, in early remission. [place] II. Deferred. [place] III. Hypertension, Insulin-dependent diabetes mellitus, hypothyroidism, and obesity. [place] IV. Unknown. [place] V. Current Global Assessment of Functioning is 30 Medications Abilify Maintena 400 mg IM monthly, 1st given April 26, 2016, last given on 06/25, next due on 07/27/2016. Atorvastatin 40 mg daily. Albuterol metered dose inhaler as needed. Diazepam 10 mg nightly when necessary insomnia not addressed by Lunesta. Diphenhydramine 50 mg by mouth every 6 hours when necessary itching Glipizide 10 mg twice daily Guaifenesin 200 mg every 4 hours when necessary cough Ibuprofen 800 mg three times a day as needed. Levothyroxine 200 mcg daily. Lisinopril 5 mg daily. Lorazepam 1 mg daily and 2mg at bedtime and 1mg twice daily as needed. 2 mg IM backup Metformin 1000 mg twice daily Pantoprazole 40 mg daily. Lunesta 3mg po nighty prn insomnia vitamin. Quetiapine 100mg po q4 hour PRN with olanzapine 10 mg IM backup. Cymbalta 30mg PO daily Treatments 1. The patient is admitted to the inpatient unit and will be provided a safe and secure environment on about her we will R work were admitted. 2. The patient is denying current active suicidality and is not in need of a one-to-one at this time. 3. The patient is encouraged to participate with group and milieu activities. 4. The patient will be seen by the treatment team on a daily basis to assess symptoms, side effects and response to treatment. 5. The patient will be continued on her current medications and I am encouraging a trial of Risperdal and Depakote and Klonopin. Patient currently refusing.. 6. Prolactin level to be drawn due to report of and prolonged use of antipsychotics. 9. Case of perineal discomfort, fullness, and abdominal discomfort discussed with Dr. Arnold, Research Advisor. Pelvic US, and visual inspection recommended. US ordered. 11. Due to medication non-adherence and decompensation, patient received 180 day less restrictive order with 30 days inpatient stay. 12. Patient not meeting criteria of LRO, affidavit and paperwork filed for revocation, court date set for this coming Sunday.. Liam Dobbins MD July 03, 2016 14:26
--- NOTE | 2016-07-03 15:34 | NUR ---
Day Shift note Pt. is very interactive today. Denies depression, hallucinations or thoughts of harm to self or others. Says she was not anxious this morning, but became very anxious and "pissed" after talking to her court person because they "moved my court date to sunday". She is very animated at times, saying that she is and that she will do anything to protect her baby. she says the doctors who say she is not are evil.
--- NOTE | 2016-07-03 18:25 | NUR ---
Observations [id number] Pt active on unit all day. Participated in usual cleaning behaviors, wiping down dining area. Pt appeared very agitated regarding results of her ultrasound. "I should have a picture of my ultrasound! I wasn't even told if it was a boy or girl!" Pt also made statements that staff have asked to take her to the movies, stating that she would go with them if she could but only on the premise that she would "take them down." Pt did participate in groups, went outside on the patio and worked on her collage. Pt is very fixated on her situation, redirecting other patients' stories back to her own personal struggles and hardships. Pt was very upset regarding court after speaking with public health training assistant. This commercial underwriter suggested trying to remain positive about court, in which her response was "Well, how would you feel if they were trying to send YOU to [facility]?" Pt was able to calm down in the evening. She was observed every 15 minutes of shift as directed.
[2016-07-03] MEDS: diphenhydrAMINE 50 mg Capsule PO PRN (23:42)
[2016-07-03] MEDS: LUNESTA 3 MG PO PRN (23:47)
--- NOTE | 2016-07-04 00:31 | NUR ---
Nursing Evening Song Toribio presents as bright, euphoric and very social with her peers. She stated to this staff member "I love being on this new antidepressant! I feel so happy! I feel like I did back in high school when I was high on cocaine!" Pt has had a wide smile very talkative with several female peers. She participated in evening group, took a shower and received prn medication to help her sleep. Medication effective pt noted to be asleep at 0000. Pt pleasant with no behavioral problems this shift. Addendum: 07/04/16 at 0611 by AMY GREEN RN Sleep Pt slept from 3400-8690. Upon awakening she presented as pressured, hypersexual and intrusive. She was focused on a particular male staff member and how "Good he looks! I'm going to get me some spiked heels and tassels if you know what I Mean (prince morrison)!" Pt received Ativan 2mg po prn and was able to lay back down and return to sleep by 0330. She was awake again this morning shortly before 0600. Total sleep 4.5 hours.
--- NOTE | 2016-07-04 02:00 | NUR ---
Observations 1900 - 0700 Pt was in D.R., up and down hallway and in and out of her room at the start of the shift. Pt appeared to be labile, manic, irritable and bitter. Pt speech was pressured and rambling. Pt eye contact was ok. Pt was social but intrusive with peers and staff. Pt required staff redirection on a couple occasions. Pt attended wrap up group, stated "I had an excellent day other than taking to my public health service officer, that was a joke, I'm not going to [facility] and you can count on that" Pt rated her mood 7/10, with 10 being the best. Pt took a shower before bed. Pt first appeared asleep at 0000. Pt was observed every 15 minutes through the night as ordered. Pt is currently asleep with respirations apparent.
[2016-07-04] MEDS: DULoxetine 30 mg DR Capsule PO SCH (07:56)
[2016-07-04] MEDS: Multivit-Miner-Folic Acid-Iron Tablet PO SCH (07:57)
[2016-07-04] MEDS: Pantoprazole 40 mg ER24 Tablet PO SCH (07:58)
[2016-07-04] MEDS: LORazepam 1 mg Tablet PO SCH ×3 (08:00→21:23)
[2016-07-04 12:51] VITALS: BP 161/84; PULSE 65; RESP 18
--- NOTE | 2016-07-04 12:58 | NUR ---
Behavior and mood Pt. declined her morning THOMAS Lorazepam. She asked for it one hour later. She stated in an irritable tone, "I want my Ativan now. It's too loud here." Pt. implied the activity and conversations in the dinning room. Noted pt. in a less hyper mood afterward. She denied V/A hallucination although she made some grandiose statements sometimes. She C/O "hard to stay awake" during lunch. She slept 4.5+ hours last night according to the shift report (which she denied, she reported she slept 7+ hours). Encouraged pt. take a nap. She agreed and went to her room after lunch. Addendum: 07/04/16 at 1630 by ALANNA RICO RN Pt. continues to believe that she is and may need surgery soon.
[2016-07-04] MEDS: diphenhydrAMINE 50 mg Capsule PO PRN ×2 (13:03→21:22)
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
[2016-07-04] MEDS: LORazepam 1 mg Tablet PO PRN (18:30)
[2016-07-04] MEDS: Magnesium Hydroxide 10 mL Oral Concentration PO PRN (19:07)
--- NOTE | 2016-07-04 21:13 | NUR ---
Obs Dayshift Pt continues to be very labile, easily upset, overly happy, pacing the unit often. Pt was more calm in the morning, became slightly irritable and taunting some peers, then in the evening pt was angry and accusing two peers of taking food from her tray and yelling at staff stating that she "was ready to rumble if need be." Pt was encouraging a peer to challenge staff and telling her to "whip this place into shape, because they do a lot of wrong here". Pt attends most groups, needing redirection often. 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 Good ADL's, Good meals
[2016-07-04] MEDS: HYDROcodone-APAP 5-325 mg Tablet PO PRN (21:23)
[2016-07-04] MEDS: LUNESTA 3 MG PO PRN (21:31)
[2016-07-05] MEDS: HYDROcodone-APAP 5-325 mg Tablet PO PRN ×2 (00:37→18:17)
[2016-07-05] MEDS: LORazepam 1 mg Tablet PO PRN ×3 (01:55→18:17)
--- NOTE | 2016-07-05 06:05 | NUR ---
Sleep 11p-7a Broken sleep during the night. She slept from [id number]. She was awake from 8490-0275. She has remained asleep since 329 with no further distress or awakening noted. She received prn for anxiety and pain @ 0155 with good effect. No outbursts. Total sleep over 6 hours.
[2016-07-05] MEDS: Pantoprazole 40 mg ER24 Tablet PO SCH (08:28)
[2016-07-05] MEDS: Multivit-Miner-Folic Acid-Iron Tablet PO SCH (08:28)
[2016-07-05] MEDS: LORazepam 1 mg Tablet PO SCH (08:29)
[2016-07-05] MEDS: DULoxetine 30 mg DR Capsule PO SCH (08:29)
--- NOTE | 2016-07-05 12:34 | NUR ---
[id number]. nurs. S: "I feel great hundred..hundred thousand, hundreds billion % better, that's 6 days on cymbalta, I'm glowing probably because I 'm " O: Pt with restless presence, loud pressured speech in am, stimulated by new pts on unit with poorly controlled behaviour, and pt wanting to care take and control interactions. Pt given 1mg ativan with am sheduled meds. Pt able to maintain behaviour to time of report. Pt pleasant and full of compliments for everyone and setting limits with less controlled pts. Pt requesting and given motrin 800mg for at lunchtime for hip pain. P:CNCP
[2016-07-05 13:40] VITALS: BP 168/82; PULSE 85; RESP 16
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
--- NOTE | 2016-07-05 14:50 | NUR ---
Obs Dayshift Pt has very little to not at all over the last few days that I have seen her. Pt continues to be very pressured speech, restless, easily agitated, labile, rapid mood changes, rambling speech at times. Pt is participating in most groups, needing staff redirection often. Pt is often seen cleaning the milieu during her free times. Pt stated that she was so busy on the unit yesterday that she didn't have time to get a shower in because she was cleaning and picking up after other patients all day. Pt needs reminders often about being positive and polite w/ peers and staff. Good ADL's, GOod meals
[2016-07-06] MEDS: diphenhydrAMINE 50 mg Capsule PO PRN (00:07)
[2016-07-06] MEDS: LORazepam 1 mg Tablet PO SCH ×3 (00:08→22:09)
[2016-07-06] MEDS: LUNESTA 3 MG PO PRN ×2 (00:10→23:09)
--- NOTE | 2016-07-06 02:34 | NUR ---
nursing, nights, 11-7 s- the one doctor decreased my lithium and the other one screwed up the rest of my meds. they're both going down. my boyfriend retired from fishing and has hired [employer] web developer for me. i want my back x rayed. i worked a split shift at [employer]. can i have five pieces of tape ? o- shower at the beginning of the shift. has appeared to sleep after 0030. up at 0200 and received 10 mg of valium. remains awake currently alternating between rambling statements with demands to staff and assisting another patient with a collage. assessed q 15 minutes. a- inadequate sleep, pressured speech with a flight of ideas, hostile at times, no apparent physical distress. p- monitor behavior/emotional state, quality, times and amount of sleep, use and effect of medication. yolanda Addendum: 07/06/16 at 0522 by NIALL PORTILLO RN asleep after 0430. yolanda
[2016-07-06 07:30] VITALS: BP 150/80; PULSE 66; RESP 20
[2016-07-06] MEDS: DULoxetine 30 mg DR Capsule PO SCH (07:57)
[2016-07-06] MEDS: Pantoprazole 40 mg ER24 Tablet PO SCH (08:03)
[2016-07-06] MEDS: Multivit-Miner-Folic Acid-Iron Tablet PO SCH (08:30)
[2016-07-06] MEDS: HYDROcodone-APAP 5-325 mg Tablet PO PRN ×4 (13:20→22:12)
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
[2016-07-06] MEDS: LORazepam 1 mg Tablet PO PRN (15:15)
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
--- NOTE | 2016-07-06 18:52 | NUR ---
manager grant/Counselor: S: "I'm about 32 weeks ." O: Patient only slept 2.5 hours last night per staff. Patient denies S/I and H/I. She also denies auditory and visual hallucinations. Depression is 0/10 and anxiety is 0/10. A: Patient is cooperative, distactible, guarded, labile, irritable at times, oriental orthodox preoccupation, hyper-vigilant, paranoid, limited insight, limited judgment. P: Follow care plan, coordinate with out-patient providers, monitor behavior.
[2016-07-07] MEDS: LORazepam 1 mg Tablet PO PRN ×2 (02:49→13:14)
[2016-07-07] MEDS: diphenhydrAMINE 50 mg Capsule PO PRN (02:49)
--- NOTE | 2016-07-07 04:50 | NUR ---
nursing, nights, 11-7 s- i'm waiting for my lunesta. do they pay you to do that. don't say anything if it's not nice. reji is in pain. get her something. now. o- received 3 mg of lunesta at 2310. slept from 0030 to 0130. roamed about the unit engaging with other patients. made derogatory statements and demands. received 50 mg of benadryl and 1 mg of ativan at 0250. fussed in her bathroom for awhile and went to bed. has appeared to sleep after 0330. assessed q 15 minutes. a- inadequate sleep, pressured and labile, intrusive and hostile at times, no apparent physical distress. p- monitor behavior/emotional state, quality, times and amount of sleep, use and effect of medication. yolanda
[2016-07-07] MEDS: Multivit-Miner-Folic Acid-Iron Tablet PO SCH (07:59)
[2016-07-07] MEDS: Pantoprazole 40 mg ER24 Tablet PO SCH (08:00)
[2016-07-07] MEDS: DULoxetine 30 mg DR Capsule PO SCH (08:02)
[2016-07-07] MEDS: LORazepam 1 mg Tablet PO SCH ×2 (08:08→21:04)
[2016-07-07 10:22] VITALS: BP 140/85; PULSE 76; RESP 16
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
--- NOTE | 2016-07-07 15:07 | NUR ---
Nursing Dayshift: S: "I'm not going to your f*%#ing group!" O: Patient calmer this AM. Had declined her AM dose of Ativan. Requested it after lunch just prior to making above statement. Received 1 mg at 1314 with noted effectiveness. Patient much calmer at present outside on the patio with peers and staff. Good appetite at meals. Talkative on approach. Denies anxiety, depression, harmful thoughts, and hallucinations. A: Pressured and irritable at times. A little isolative today. P: CPOC. Monitor mood and behavior. Addendum: 07/07/16 at 3818 by JOSE HERNANDEZ RN Patient quite irritable and agitated this evening towards a staff member and a female peer. Redirected only to start yelling again. Ativan 2 mg PO given per patients request. Calmer within the hour. Will continue to monitor mood and behavior.
--- NOTE | 2016-07-07 18:19 | NUR ---
platform material handler manager/Counselor: S: "I'm doing great today girl." O: Patient only slept 3.25 hours last night per staff. Patient denies S/I and H/I. She also denies auditory and visual hallucinations. Depression is 0/10 and anxiety is 0/10. A: Patient is cooperative, distactible, guarded, labile, irritable at times, religion preoccupation, hyper-vigilant, paranoid, limited insight, limited judgment. P: Follow care plan, coordinate with out-patient providers, monitor behavior.
--- NOTE | 2016-07-07 18:34 | NUR ---
observations 0700 to 1900 Pt affect and mood continues to be labile, manic, intrusive, paranoid, agitated and very inappropriate at times. Pt speech was rapid, rambling and loud. Pt eye contact was good. Pt was in and out of her room most of the shift, socializing, cleaning, intrusive with peers and pacing hallway. Pt attended meals in D.R. and ate approximately 80-90% of her meals. Pt continues to have poor boundaries, inappropriate with staff and peers. Pt continued to be very intrusive and loud, creative writer talked with her about both of these. Pt needs occasional staff redirection. Pt went out on patio with staff and peers to get some fresh air and throw the football around. Pt took a shower, washed a load of clothes and attended to ADL's. Pt attended community meeting and set a daily goal. Pt rated her mood a 10/10, on a scale of 1-10, with 10 being the best. Pt was observed every 15 minutes throughout the shift as ordered.
[2016-07-07] MEDS: LUNESTA 3 MG PO PRN (22:24)
[2016-07-07] MEDS: HYDROcodone-APAP 5-325 mg Tablet PO PRN (22:25)
--- NOTE | 2016-07-08 05:38 | NUR ---
Nursing note: mds manager/sleep, prn Patient observed asleep at beginning of shift, but awake frequently during the night walking in hallways. Patient received Ibuporfen 800mg at 0457 for complaint of hip and knee pain. Patient continues with belief she is and perseverating about her hairspring assembler, suing people that gave her the wrong medications. Patient later out in dining room socializing with peers. Remains with fragmented sleep and delusional thinking.
[2016-07-08] MEDS: LORazepam 1 mg Tablet PO SCH ×2 (08:05→22:56)
[2016-07-08] MEDS: Pantoprazole 40 mg ER24 Tablet PO SCH (08:09)
[2016-07-08] MEDS: DULoxetine 30 mg DR Capsule PO SCH (08:10)
[2016-07-08] MEDS: Multivit-Miner-Folic Acid-Iron Tablet PO SCH (08:11)
[2016-07-08 08:36] VITALS: BP 157/93; PULSE 67; RESP 19
[2016-07-08] MEDS: HYDROcodone-APAP 5-325 mg Tablet PO PRN ×3 (11:01→22:56)
--- NOTE | 2016-07-08 18:34 | NUR ---
Observations [id number] Pt awake on unit upon start of shift. Pt very agitated regarding other patients on unit, and previous argument that happened the night before. Pt changed clothing multiple times throughout the day. She paced unit, participated in group, and attended Community Meeting. Pt cleaned unit in the evening. Pt was observed every 15 minutes of shift as directed.
--- NOTE | 2016-07-08 22:28 | NUR ---
NURSING NOTE [id number] Mood: *motions 10 fingers with a smile* Affect: pleasant, social Behavior: spent time out on patio w/peers, participated in rec group, visible on unit, asked for PRN pain medications for knee pain, showered Thought processes: delusional; ranted for some time about a dentist whom she believes "pulled out 7 of my good, healthy teeth so he could pocket the gold crowns to himself and go shopping with it!" and continues to believe she is . She did express some insight into her diagnosis, telling this freelance writer "I'm bipolar" and described some of the negative behaviors she engages in "when I'm manic". PRNs Ibuprofen 800 @ 15:30 for 7/10 knee pain
[2016-07-08] MEDS: LUNESTA 3 MG PO PRN (22:56)
--- NOTE | 2016-07-08 23:03 | PCM.PNPSY ---
Subjective Date of Service July 08, 2016 Subjective The patient is pleasant and has been helpful to peers. She continues to report being and looking forward to taking care of the baby. The patient reports that duloxetine has been helpful for her mood. The patient was noted to have decreased tremor and reported reduced side effects. She reported that she was doing exercises from PT but was still reporting stiffness and swelling. Patient reported that she still had some oily nipple discharge. She reported that she had not had a mammogram in quite a few years and believes at least 2-3 or more. Sleep: Feels refreshed, slept 2.75 hours. Appetite: "just eating perfectly" Suicidal and homicidal ideation: denies Auditory hallucinations: denies Visual hallucinations: denies Other Psychotic Symptoms: delusions of , labile affect Anxiety: 0/10 Depression: 0/10 Mental Status Exam Appearance: Neat/well groomed (Marker as lipstick) Attitude: Pleasant, Cooperative, Guarded Behavior: Tearful, Distractible Affect: Labile Mood: Dysthymic, Anxious Thought Process/Associations: Goal Directed Speech Production: Normal Speech Rate: Pressured (mild) Speech Articulation: Normal Thought Content: Yarsanism preoccupation, Somatic preoccupation, Perseveration , Erotomanic Danger to Self/Suicidal Ideati: None Danger to Others: None Delusions: Paranoid (Endorses), Grandiose (Endorses), Somatic (Endorses) Hallucinations: Auditory (Denies) Consciousness: Hyper-vigilant Orientation: Person, Place, Date, Situation Memory: Grossly Intact Estimate Intellectual Function: Average Basis for IQ estimate: Awareness current events, Word use/vocabulary, Educational history Attention/Concentration & Cogn: Impaired Insight: Limited Judgement: Poor Mental Health Plan The patient is a 56-year-old female with a recent psychiatric hospitalization at the [facility] (admitted 05/01/2016 and discharged on 05/19/2016). The patient had been discharged to [facility], but she had been unable to follow expectations and was demonstrating symptoms of decompensation. On admission, she presented with multiple symptoms of bipolar disorder with psychosis including distractibility, pressured speech, racing thoughts, grandiose and paranoid delusions, increased activity, and poor interpersonal boundaries with impaired judgment and insight. The patient was admitted on a revocation of a less restrictive order following failure to comply with her less restrictive order. She has been tried on a number of medications but stabilized on a combination of aripiprazole 20 mg daily and Depakote 750 mg. The patient has consistently refused Depakote and so has been continued on a combination of lorazepam and aripiprazole. The patient received her first dose of Abilify Maintena 400 mg on April 26, 2016,her second dose on May 26, 2016, and third on June 25, 2016. Patient continues to be delusional and has refused oral supplementary aripiprazole. The patient continues to report "allergies" to medications due to weight gain and is refusing to take them. She has consistently refused Depakote for this reason. She is additionally refusing Trileptal as she has tried it in the past and is also "allergic" to it. She lists quetiapine and olanzapine in this same category but reluctantly took quetiapine but has subsequently declined this medication. She states that she is allergic to Zyprexa however she has no signs of allergic reaction to the medication and has received it several times without incident (although the patient reports her cracked hands are a side effect of all of these medications, rather than her constant cleaning). The patient has been refusing oral supplemental aripiprazole for several days and it was ultimately discontinued as the patient was becoming increasingly agitated. She is now stating that she no longer wishes to take the Abilify Maintena. Although the patient has been refusing a mood stabilizer, given the aripiprazole in her system, it was felt that a trial of an antidepressant may reduce irritability. The patient did agree to Cymbalta, but it is too early to tell whether this has been helpful or not. She remains delusional regarding , and additionally is reporting nipple discharge and so prolactin level was checked and found to be normal range. The patient is amenable to having blood tests for muscle/joint pain as well as aripiprazole level. If subtherapeutic will consider alternate antipsychotic or restarting oral aripiprazole. The patient may warrant mammogram, will need to discuss with medical. [place] I. Bipolar disorder, manic, with psychotic features, Posttraumatic stress disorder, Polysubstance use disorder, in early remission. [place] II. Deferred. [place] III. Hypertension, Insulin-dependent diabetes mellitus, hypothyroidism, and obesity. [place] IV. Unknown. [place] V. Current Global Assessment of Functioning is 35 Medications Abilify Maintena 400 mg IM monthly, 1st given April 26, 2016, last given on 06/25, next due on 07/27/2016. Duloxetine 30mg PO daily Quetiapine 100mg po q4 hour PRN with olanzapine 10 mg IM backup. Lorazepam 1 mg daily and 2mg at bedtime and 1mg twice daily as needed. 2 mg IM backup Diazepam 10 mg nightly when necessary insomnia not addressed by Lunesta Lunesta 3mg po nighty prn insomnia Atorvastatin 40 mg daily. Albuterol metered dose inhaler as needed. Diphenhydramine 50 mg by mouth every 6 hours when necessary itching Glipizide 10 mg twice daily Ibuprofen 800 mg three times a day as needed. Levothyroxine 200 mcg daily. Lisinopril 5 mg daily. Metformin 1000 mg twice daily Methocarbamol 750 mg by mouth 4 times a day when necessary cramping Pantoprazole 40 mg daily. vitamin. Treatments 1. The patient is admitted to the inpatient unit and will be provided a safe and secure environment on about her we will R work were admitted. 2. The patient is denying current active suicidality and is not in need of a one-to-one at this time. 3. The patient is encouraged to participate with group and milieu activities. 4. The patient will be seen by the treatment team on a daily basis to assess symptoms, side effects and response to treatment. 5. The patient will be continued on her current medications and I am encouraging a trial of Zyprexa or Risperdal and Depakote and Klonopin. Patient currently refusing. 6. Prolactin level drawn due to report of and prolonged use of antipsychotics, was found to be low, patient may warrant mammogram. 7. Case of perineal discomfort, fullness, and abdominal discomfort discussed with Dr. Arnold, Hydroelectric Plant Operator. Pelvic US, and visual inspection recommended. US ordered and found to show evidence of calcification potentially related to fibroids. No visualization of adnexa. 8. Due to medication non-adherence and decompensation, patient received 180 day less restrictive order with 30 days inpatient stay. 9. Patient not meeting criteria of LRO, affidavit and paperwork filed for revocation. 10. Check CBC, CMP, ESR, CK. Jez Stephens MD July 08, 2016 23:03
[2016-07-09] MEDS: diphenhydrAMINE 50 mg Capsule PO PRN (03:08)
[2016-07-09] MEDS: LORazepam 1 mg Tablet PO PRN ×2 (03:09→12:37)
--- NOTE | 2016-07-09 04:23 | PCM.CHPMED ---
Subjective Date of Service: July 09, 2016 Provider requesting consult: Jez Stephens MD Primary Physician: Admitting Physician: Jez Stephens MD Primary Care Physician: Gordo Benoit MD Attending Physician: Jez Stephens MD Chief Complaint: Chief Complaint: Ground level fall History of Present Illness: Malu Johnson is a 56 year old woman with bipolar disorder admitted to the mental health unit due to psychosis and paranoid delusions who currently believes she is . The hospitalist service is consulted to evaluate the patient after a ground level fall. The patient slipped on water and fell backwards and hit the back of her neck and her head. She states her neck took most of the impact. She now has pain in the back of her neck and a throbbing headache. She also reported elbow pain to the mental health RN. She denies any double vision, dizziness, vertigo, gait instability, nausea, vomiting, hand weakness or elbow pain. She denies any numbness or tingling. The patient also noted pain in her knee from a fall days prior when she slipped on her own urine and fell on her knee. She notes that it is swollen and "hot." The patient is refusing any x ray imaging as she believes she is and this would harm the baby. Review of Systems: A comprehensive review of systems was conducted with the patient and found to be negative except as above in the History of Present Illness. PMH Past Medical History Diabetes HTN hypothyroidism PTSD Bedside Blood Glucose: 125 Surgical History None Home Medications Home Medications ([diphenHYDramine]) 25 MG CAPSULE 25 MG PO HS Aripiprazole (Abilify) 10 Mg Tablet 10 MG PO DIRECTED Take 2 tablets daily for 14 days then 1 tablet daily for 14 days Aripiprazole (Abilify Maintena Inj) 400 Mg Suser.vial 400 MG AD Monthly Next due 05/26/16 Atorvastatin (Lipitor) 40 Mg Tablet 40 MG PO DAILY Glipizide (Glipizide) 10 Mg Tablet 10 MG PO BID Levothyroxine (Levothyroxine) 200 Mcg Tablet 200 MCG PO DAILY Lisinopril (Lisinopril) 5 Mg Tablet 5 MG PO DAILY Lorazepam (Ativan) 2 Mg Tablet 2 MG PO DIRECTED Take 1 tablet nightly for 14 days then 1/2 tablet nightly for 14 days and discontinue Metformin (Glucophage) 1,000 Mg Tablet 1,000 MG PO BID Omeprazole (Omeprazole) 40 Mg Capsule.dr 40 MG PO DAILY Scheduled PRN ([diphenHYDramine]) 50 MG CAPSULE 50 MG PO Q6H PRN PRN For Itching Albuterol HFA (Proair HFA) 8.5 Gm Hfa.aer.ad 2 PUFFS INHALATION Q4H PRN PRN For Shortness of Breath Ibuprofen (Ibuprofen) 400 Mg Tablet 800 MG PO TID PRN PRN For Pain Lorazepam (Ativan) 1 Mg Tablet 1 MG PO BID PRN PRN For Anxiety or Agitation Temazepam (Restoril) 15 Mg Capsule 30 MG PO HS PRN PRN Insomnia Allergies: Coded Allergies: lamotrigine (Verified Allergy, Intermediate, skin rash, 12/01/14) Sulfa (Sulfonamide Antibiotics) (Verified Allergy, Unknown, 11/20/14) loxapine (Verified Allergy, Unknown, 11/20/14) zolpidem (Verified Allergy, Unknown, 11/20/14) Family History Family History Hypertension Social History Occupation: The patient is and had Hx Alcohol Use: NoHx Substance Use: NoHx Tobacco Use: No Smoking Status: Unknown if Ever Smoker Exam Vital Signs Vital Sign - Last Date Time Temp Pulse Resp B/P Pulse Ox O2 Delivery O2 Flow Rate FiO2 07/08/16 08:36 36.6 67 19 157/93 General: Alert, Cooperative, No Acute Distress Head: Normal Eyes: PERRLA, EOMI, Scleral Anicteric Mouth: Mouth Normal Neck: Supple, Other (without point tenderness, no tenderness to percussion, no erythema, no echymosis, normal ROM) Chest & Lungs: Clear to auscultation & percussion Cardiovascular: Regular Rate/Rhythm, Normal S1, Normal S2, No Murmurs/Rubs/ Gallops Abdomen: Soft, Obese Musculoskeletal: Cervical Spine (non-tender, normal ROM), Elbow (non-tender, normal ROM), Knee (R knee normal in temperature, non-tender) Neurological: Grossly Neurologically Intact, Cranial Nerves 2-12 Intact, Normal Speech, Strength Normal 4/4 ext, Normal Gait, Sensation Intact Assessment & Plan Assessment Malu Johnson is a 56 year old woman with bipolar disorder admitted to the mental health unit due to psychosis and paranoid delusions who currently believes she is . The hospitalist service is consulted to evaluate the patient after a ground level fall. Ground level fall -No injury on exam -Patient refuses imaging due to her delusion -Should patient deteriorate or agree to imaging recommend C-Spine X-ray and head CT -Pain management with Tylenol head trauma, acute -treatment as above neck pain, acute -secondary to fall -treatment as above elbow pain, acute -elbow XR if patient allows Problems: Attending Statement The patient was seen and examined together with house staff on 07/09/2016 and I agree with the history, exam and plan as outlined in the note above. Karissa Cohn DO July 09, 2016 04:23 Jen Price DO July 09, 2016 05:27
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
[2016-07-09] MEDS: Pantoprazole 40 mg ER24 Tablet PO SCH (08:15)
[2016-07-09] MEDS: DULoxetine 30 mg DR Capsule PO SCH (08:15)
[2016-07-09] MEDS: Multivit-Miner-Folic Acid-Iron Tablet PO SCH (08:15)
[2016-07-09] MEDS: LORazepam 1 mg Tablet PO SCH ×2 (08:30→20:47)
[2016-07-09 09:28] LABS: Mean Corpuscular Hemoglobin 27.9 pg (27.0-35.0); Mean Corpuscular Volume 82.5 fL (81-100)
--- NOTE | 2016-07-09 14:03 | NUR ---
Nursing Note [id number] S/O: Pt has good appetite. Pt refused scheduled Ativan this morning stating, "It makes me tired." Pt reportedly slept 2 1/2 hours last night. Pt has been active on unit. She shows no s/sx of being tired. Pt c/o back pain at a "10" on a scale of 1-10/10 the worst. Pt given ibuprofen 800 mg at 0845. She reported it wasn't helpful at all at 0934. Pt attended groups today. A: Pt con't to be hypomanic. P: Provide supportive environment. Monitor medications & effects.
--- NOTE | 2016-07-09 14:24 | PCM.PNMED ---
Subjective Date of Service July 09, 2016 Subjective Malu Johnson is a 56 year old woman with bipolar disorder admitted to the mental health unit due to psychosis and paranoid delusions who currently believes she is . The hospitalist service is consulted to evaluate the patient after a ground level fall. The patient slipped on water and fell backwards and hit the back of her neck and her head. She states her neck took most of the impact. She now has pain in the back of her neck and a throbbing headache. She also reported elbow pain to the mental health RN. She denies any double vision, dizziness, vertigo, gait instability, nausea, vomiting, hand weakness or elbow pain. She denies any numbness or tingling. The patient also noted pain in her knee from a fall days prior when she slipped on her own urine and fell on her knee. She notes that it is swollen and "hot." The patient is refusing any x ray imaging as she believes she is and this would harm the baby. 07/09/16 short PM note: Patient is doing well, she agreed to MRI of the head. She has no complains. MRI was ordered by patient's psychiatrist. Suspicion for intracranial process is low. Patient also has mild hyponatremia. I would recommend free water restriction for now, monitor sodium level. Hospitalist service will sign off, discussed with floor psychiatrist, he agreed, he will call us again if needed. Exam Vital Signs Vital Sign - Last Date Time Temp Pulse Resp B/P Pulse Ox O2 Delivery O2 Flow Rate FiO2 07/08/16 08:36 36.6 67 19 157/93 Lab and Diagnostics Result Diagram: 07/09/16 0923 07/09/16 0923 Lazarus Finney MD July 09, 2016 14:24
--- NOTE | 2016-07-09 15:21 | DRSVH ---
PROCEDURE: MRI BRAIN WITHOUT CONTRAST ([id number]) INDICATIONS: ground level fall TECHNIQUE: Noncontrast axial T1 spin echo, axial T2 fast spin echo, sagittal and axial FLAIR, coronal T2 fast sp in echo, axial gradient echo, axial diffusion and ADC through the brain. COMPARISON: None. FINDINGS: Image quality: Excellent. CSF Spaces: Basal cisterns are patent. No extra-axial fluid collections. Ventricles are normal in size and shape. Brain: No intracranial masses or hemorrhage. Sawyer/white matter interface is normal. Brainstem appe ars normal. Diffusion-weighted images demonstrate no acute ischemic insult. No chronic ischemic ins ults. Normal intravascular flow voids are present. Skull and face: Calvarium has normal marrow signal. Orbits appear normal. Sinuses: Sinuses and mastoids are clear except at the right ethmoid air cells we are fluid signal is present without adjacent inflammation, subtotally opacifying the right mastoid air cells. IMPRESSION: No trauma found. Note is made of a small degree of mucosal thickening involving the maxillary sinuses and ethmoid air cells there is subtotal opacification of the right mastoid air cells. Please correlate for whether a cute versus chronic mastoiditis is present. There is no sign of inflammation extending from the mast oid air cells into adjacent structures. Dictated by: Javier Butts M.D. on 07/09/2016 at 15:16 Approved by: Javier Butts M.D. on 07/09/2016 at 15:19
--- NOTE | 2016-07-09 15:24 | DRSVH ---
PROCEDURE: MRI CERVICAL SPINE WITHOUT CONTRAST ([id number]) INDICATIONS: ground level fall TECHNIQUE: Noncontrast sagittal T1 spin echo and T2 fast spin echo, sagittal STIR, foraminal oblique sagittal T2 fast spin echo, and axial gradient echo or T2 fast spin echo through the cervical spine. COMPARISON: None. FINDINGS: Image quality: A small degree of patient motion during image acquisition does mildly degrades qualit y of visualization. The study is diagnostic. Alignment and Curvature: There is normal bony alignment. Bone Marrow: Marrow demonstrates normal overall signal. Spinal Cord: Visualized spinal cord has normal size and signal. No cerebellar tonsillar herniation. Paraspinous Soft Tissues: No paravertebral masses. Prevertebral soft tissues are normal in thicknes s. Spinal canal and neural foramen: No spinal stenosis found. Minimal facet degeneration without visua lized nerve root impingement. IMPRESSION: No trauma found. No evidence of traumatic disc herniation. There is a minimal degree o f degenerative disc height reduction and disc desiccation seen from C3 through C6, expected for age. No nerve root impingement is suspected. Dictated by: Javier Butts M.D. on 07/09/2016 at 15:19 Approved by: Javier Butts M.D. on 07/09/2016 at 15:22
[2016-07-09 18:20] VITALS: BP 153/88; PULSE 73; RESP 16
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
--- NOTE | 2016-07-09 21:14 | NUR ---
Observations 00 to 2129 Pt affect and mood continues to be labile, manic, intrusive, paranoid, agitated and delusional. Pt speech was rapid, rambling and loud. Pt eye contact was good. Pt was in and out of her room most of the shift, socializing, cleaning, intrusive with peers and pacing hallway. Pt attended meals in D.R. and ate approximately 80-90% of her meals. Pt continues to have poor boundaries, inappropriate with staff and peers. Pt requires occasional staff redirection. Pt needs occasional staff redirection. Pt went out on patio with staff and peers to get some fresh air and throw the football around. Pt washed a load of clothes and attended to ADL's. Pt attended community meeting and set a daily goal. Pt rated her mood a 10/10, on a scale of 1 to 10, with 10 being the best. Pt continues to be delusional and stated "I'm in the witness protection program and you are all going to be in trouble" "some staff member told another patient that I'm not " Pt was observed every 15 minutes throughout the shift as ordered.
[2016-07-09] MEDS: LUNESTA 3 MG PO PRN (22:36)
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
[2016-07-10] MEDS: HYDROcodone-APAP 5-325 mg Tablet PO PRN ×2 (01:47→21:58)
--- NOTE | 2016-07-10 06:43 | NUR ---
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 Patient angry and verbally abusive towards staff re telling other patients she was not . Patient received various prns and warm packs for body aches-back, hips, knees. Patient eventually settled down and slept until early am. Patient up with peers. Fragmented sleep, ongoing delusions and labile mood.
[2016-07-10] MEDS: LORazepam 1 mg Tablet PO SCH ×2 (08:30→22:00)
[2016-07-10] MEDS: Pantoprazole 40 mg ER24 Tablet PO SCH (08:51)
[2016-07-10] MEDS: DULoxetine 30 mg DR Capsule PO SCH (08:52)
[2016-07-10] MEDS: Multivit-Miner-Folic Acid-Iron Tablet PO SCH (08:52)
[2016-07-10] MEDS: Magnesium Hydroxide 10 mL Oral Concentration PO PRN (10:06)
--- NOTE | 2016-07-10 11:15 | NUR ---
Nursing Note [id number] Behavior, Medications S/O: Pt ate 100% of breakfast. Pt refused scheduled Ativan this morning. Pt attended groups this morning. She con't to report she is . Conversation tracking clear & organized with slightly loud volume & increased pressure. Pt out in milieu. A: Pt con't to be hypo-manic. P: Provide supportive environment. Monitor medications & effects.
[2016-07-10 17:14] VITALS: BP 145/85; PULSE 72; RESP 19
[2016-07-10] MEDS: LORazepam 1 mg Tablet PO PRN (17:54)
--- NOTE | 2016-07-10 18:02 | PCM.PNPSY ---
Subjective Date of Service July 10, 2016 Subjective The patient was initially pleasant and friendly but became irritable and terminated the interview after stating that she received a total of 800 mg of aripiprazole(approximately 30 mg or less per day) and currently feels that she is still having too much medication. She was indicating that she felt her appearance was not as good as it could be as she had not taken a shower. Sleep: Feels rested, slept 4.25 hours. Appetite: "Just fine" Suicidal and homicidal ideation: denies Auditory hallucinations: denies Visual hallucinations: denies Other Psychotic Symptoms: delusions of , labile affect Anxiety: 0/10 Depression: 0/10 Mental Status Exam Vital Signs Vital Signs Date Time Temp Pulse Resp B/P Pulse Ox O2 Delivery O2 Flow Rate FiO2 07/10/16 17:14 36.5 72 19 145/85 Appearance: Neat/well groomed (Marker as lipstick) Attitude: Pleasant, Cooperative, Guarded Behavior: Tearful, Distractible Affect: Labile Mood: Dysthymic, Anxious Thought Process/Associations: Goal Directed Speech Production: Normal Speech Rate: Pressured (mild) Speech Articulation: Normal Thought Content: Jew preoccupation, Somatic preoccupation, Perseveration , Erotomanic Danger to Self/Suicidal Ideati: None Danger to Others: None Delusions: Paranoid (Endorses), Grandiose (Endorses), Somatic (Endorses) Hallucinations: Auditory (Denies), Visual (Denies) Consciousness: Hyper-vigilant Orientation: Person, Place, Date, Situation Memory: Grossly Intact Estimate Intellectual Function: Average Basis for IQ estimate: Awareness current events, Word use/vocabulary, Educational history Attention/Concentration & Cogn: Impaired Insight: Limited Judgement: Poor Result Diagram: 07/09/16 0923 07/09/16 0923 Mental Health Plan The patient is a 56-year-old female with a recent psychiatric hospitalization at the [facility] (admitted 05/01/2016 and discharged on 05/19/2016). The patient had been discharged to [facility], but she had been unable to follow expectations and was demonstrating symptoms of decompensation. On admission, she presented with multiple symptoms of bipolar disorder with psychosis including distractibility, pressured speech, racing thoughts, grandiose and paranoid delusions, increased activity, and poor interpersonal boundaries with impaired judgment and insight. The patient was admitted on a revocation of a less restrictive order following failure to comply with her less restrictive order. She has been tried on a number of medications but stabilized on a combination of aripiprazole 20 mg daily and Depakote 750 mg. The patient has consistently refused Depakote and so has been continued on a combination of lorazepam and aripiprazole. The patient received her first dose of Abilify Maintena 400 mg on April 26, 2016,her second dose on May 26, 2016, and third on June 25, 2016. Patient continues to be delusional and has refused oral supplementary aripiprazole. The patient continues to report "allergies" to medications due to weight gain and is refusing to take them. She has consistently refused Depakote for this reason. She is additionally refusing Trileptal as she has tried it in the past and is also "allergic" to it. She lists quetiapine and olanzapine in this same category but reluctantly took quetiapine but has subsequently declined this medication. She states that she is allergic to Zyprexa however she has no signs of allergic reaction to the medication and has received it several times without incident (although the patient reports her cracked hands are a side effect of all of these medications, rather than her constant cleaning). The patient has been refusing oral supplemental aripiprazole for several days and it was ultimately discontinued as the patient was becoming increasingly agitated. She is now stating that she no longer wishes to take the Abilify Maintena. Although the patient has been refusing a mood stabilizer, given the aripiprazole in her system, it was felt that a trial of an antidepressant may reduce irritability. The patient did agree to Cymbalta, but it is too early to tell whether this has been helpful or not. She remains delusional regarding , and additionally is reporting nipple discharge and so prolactin level was checked and found to be normal range. The patient is amenable to having blood tests for muscle/joint pain as well as aripiprazole level. If subtherapeutic will consider alternate antipsychotic or restarting oral aripiprazole. Given mammary symptoms, both hospitalist and radiologist recommended outpatient mammogram unless symptoms worsen. Patient agreed to MRI of head and neck. Per radiologist, this would also assist in ruling out pituitary mass. No acute findings on MRI. Awaiting results of aripiprazole level. Plentywood Plentywood I. Bipolar disorder, manic, with psychotic features, Posttraumatic stress disorder, Polysubstance use disorder, in early remission. [place] II. Deferred. [place] III. Hypertension, Insulin-dependent diabetes mellitus, hypothyroidism, and obesity, recent fall. [place] IV. Unknown. [place]enty[place] V. Current Global Assessment of Functioning is 35 Medications Abilify Maintena 400 mg IM monthly, 1st given April 26, 2016, last given on 06/25, next due on 07/27/2016. Duloxetine 30mg PO daily Quetiapine 100mg po q4 hour PRN with olanzapine 10 mg IM backup. Lorazepam 1 mg daily and 2mg at bedtime and 1mg twice daily as needed. 2 mg IM backup Diazepam 10 mg nightly when necessary insomnia not addressed by Lunesta Lunesta 3mg po nighty prn insomnia Atorvastatin 40 mg daily. Albuterol metered dose inhaler as needed. Diphenhydramine 50 mg by mouth every 6 hours when necessary itching Glipizide 10 mg twice daily Ibuprofen 800 mg three times a day as needed. Levothyroxine 200 mcg daily. Lisinopril 5 mg daily. Metformin 1000 mg twice daily Methocarbamol 750 mg by mouth 4 times a day when necessary cramping Pantoprazole 40 mg daily. vitamin. Treatments 1. The patient is admitted to the inpatient unit and will be provided a safe and secure environment on about her we will R work were admitted. 2. The patient is denying current active suicidality and is not in need of a one-to-one at this time. 3. The patient is encouraged to participate with group and milieu activities. 4. The patient will be seen by the treatment team on a daily basis to assess symptoms, side effects and response to treatment. 5. The patient will be continued on her current medications and I am encouraging a trial of Zyprexa or Risperdal and Depakote and Klonopin. Patient currently refusing. 6. Prolactin level drawn due to report of and prolonged use of antipsychotics, was found to be low, patient may warrant outpatient mammogram. If symptoms worsen consider ultrasound. 7. Case of perineal discomfort, fullness, and abdominal discomfort discussed with Dr. Arnold, Vacuum Worker. Pelvic US, and visual inspection recommended. US ordered and found to show evidence of calcification potentially related to fibroids. No visualization of adnexa. 8. Due to medication non-adherence and decompensation, patient received 180 day less restrictive order with 30 days inpatient stay. 9. Patient not meeting criteria of LRO, affidavit and paperwork filed for revocation. 10. CBC/CMP/ESR/CPK with no acute abnormality. Arthritis panel, aripiprazole level pending. Jez Stephens MD July 10, 2016 18:02
--- NOTE | 2016-07-10 19:34 | NUR ---
NURSING NOTE [id number] Mood: "excellent" Affect: labile; pleasant and smiling at times, other times suspicious and agitated Behavior: sunbathing on the patio for several hrs at start of shift; socializing w/female peers and allowed her peers to paint her nails and braid her hair. Dinner FSBS: 107. Asked for Ativan 1 mg @ dinner time. In the midst of dinner, the pt. went to her room to use the bathroom and a peer apparently came to her room to tell her that another peer was tampering w/her food (later peers reported the other pt. had lifted the cover on Malu's tray and then placed it back down.) The pt. came running out of her room and began yelling at peers in the dining room. Staff intervened and she told staff that we could not tell her what to do because: "I work here too. I was hired by [employer] a few days ago!" Pt. able to calm down when redirected out of the dining room and debriefed w/her MHA. Pt. able to maintain behavioral control thereafter. Thought processes: paranoid, delusional: continues to believe she is . 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
--- NOTE | 2016-07-10 21:23 | NUR ---
Observations 00 to 2129 Pt affect and mood continues to be labile, manic, intrusive, paranoid, agitated and delusional. Pt continues to be inappropriate with this designer writer. Pt speech was rapid, rambling and loud. Pt eye contact was good. Pt was in and out of her room most of the shift, socializing, cleaning, intrusive with peers and pacing hallway. Pt attended meals in D.R. and ate approximately 100%, 75% and 75% of her meals. Pt continues to have poor boundaries, inappropriate with staff and peers. Pt requires occasional staff redirection. Pt went out on patio with staff and peers to get some fresh air and enjoy the sunshine. Pt took a shower, washed a load of clothes and attended to ADL's. Pt attended community meeting and set a daily goal. Pt rated her mood a 10/10, on a scale of 1 to 10, with 10 being the best. Pt stated to this designer writer "I'm not in love with you anymore, you are a anushad and you can fk off" Pt was talked to about this being inappropriate and she got very agitated began cussing, slammed a door and yelled more profanities as she stomped down the hallway. Pt was able to be redirected and stayed in her room until she was able to keep it together. Pt was observed every 15 minutes throughout the shift as ordered.
[2016-07-10] MEDS: LUNESTA 3 MG PO PRN (21:58)
[2016-07-11] MEDS: diphenhydrAMINE 50 mg Capsule PO PRN (00:53)
--- NOTE | 2016-07-11 05:29 | NUR ---
OBSERVATIONS Pt is labile with a present tendency toward agitation and verbal aggression/assertion. When other pts on unit became visibly and/or audibly agitated during the shift, pt responded in kind. Pt gave loud, patiño orders to staff multiple times throughout the shift in addition to derogatory comments directed toward staff members and threats to romana. Pt is entitled, demanding, pt states that she knows how things are supposed to run because she works here. In the morning, pt was grasping another pt's shoulders, giving her a "pep talk" about weight loss, the other pt was visibly uncomfortable prompting this MHA to step in. Requested pt let the other pt be and stated that maybe she didn't really want a "pep talk" right now, pt became agitated and told this MHA to "butt out" and mind own business, etc. Other pt walked away directly to room. Pt slept very little. Maintained Q15 safety checks as directed.
[2016-07-11 08:20] VITALS: BP 150/92; PULSE 97; RESP 19
[2016-07-11] MEDS: Multivit-Miner-Folic Acid-Iron Tablet PO SCH ×2 (08:30→09:08)
[2016-07-11] MEDS: LORazepam 1 mg Tablet PO SCH ×2 (08:30→21:51)
[2016-07-11] MEDS: Pantoprazole 40 mg ER24 Tablet PO SCH (09:07)
[2016-07-11] MEDS: DULoxetine 30 mg DR Capsule PO SCH (09:09)
[2016-07-11] MEDS: LORazepam 1 mg Tablet PO PRN (10:56)
--- NOTE | 2016-07-11 14:32 | NUR ---
Nursing Note [id number] Behavior S/O: Pt has good appetite. B/P slightly elevated at 150/92. Other vital signs stable. Pt attending groups. Out in milieu. Pt interrupting peers. 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 Pt initially refused scheduled dose of am Ativan, but later requested it after peer became upset with her. A: Pt has little insight into illness. P: Provide supportive environment. Monitor medications & effects.
--- NOTE | 2016-07-11 15:31 | NUR ---
Obs Dayshift Pt is little to no change since this underwriter worked with her last week. Pt continues to be pressured, hyper, restless, loud. Pt continues to state that is either works here or is getting a job here. Pt is very labile, rapid mood changes. Tearful, sad, depressed, laughing, quickly pacing the unit, irritable, at times verbally aggressive toward peers or staff. Pt is participating in groups, often needing redirection from staff. Pt is often seen trying to peer program counselor, and inappropriate boundaries. Continues to report that she is . Good ADL's, GOod meals
--- NOTE | 2016-07-11 16:52 | PCM.PNPSY ---
Subjective Date of Service July 11, 2016 Subjective The patient was generally friendly throughout the interview with treatment team and discuss the evaluation of her trauma history in a fairly neutral fashion. She maintained a fairly euthymic presentation despite recalling fairly traumatic events. She mentioned only once on earlier greeting and again during interview something about being and did not linger on the topic. The patient reported that the methocarbamol was effective for her back pain and helped her sleep better. 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 We discussed potentially increasing Cymbalta but the patient was concerned it may elevate her mood too much. Sleep: Patient slept well, staff report 4.5 hours Appetite: Good Suicidal and homicidal ideation: denies Auditory hallucinations: denies Visual hallucinations: denies Other Psychotic Symptoms: Delusions of Mental Status Exam Appearance: Neat/well groomed Attitude: Pleasant, Cooperative Behavior: Distractible Affect: Other (generally euthymic with a slight edge) Mood: Anxious Thought Process/Associations: Goal Directed Speech Production: Normal Speech Rate: Pressured (mild) Speech Articulation: Normal Thought Content: Adventism preoccupation, Somatic preoccupation, Perseveration Danger to Self/Suicidal Ideati: None Danger to Others: None Delusions: Somatic (Endorses) Hallucinations: Auditory (Denies), Visual (Denies) Consciousness: Hyper-vigilant Orientation: Person, Place, Date, Situation Memory: Grossly Intact Estimate Intellectual Function: Average Basis for IQ estimate: Awareness current events, Word use/vocabulary, Educational history Attention/Concentration & Cogn: Impaired Insight: Limited Judgement: Poor Result Diagram: 07/09/16 0923 07/09/16 0923 Mental Health Plan The patient is a 56-year-old female with a recent psychiatric hospitalization at the [facility] (admitted 05/01/2016 and discharged on 05/19/2016). The patient had been discharged to [facility], but she had been unable to follow expectations and was demonstrating symptoms of decompensation. On admission, she presented with multiple symptoms of bipolar disorder with psychosis including distractibility, pressured speech, racing thoughts, grandiose and paranoid delusions, increased activity, and poor interpersonal boundaries with impaired judgment and insight. The patient was admitted on a revocation of a less restrictive order following failure to comply with her less restrictive order. She has been tried on a number of medications but stabilized on a combination of aripiprazole 20 mg daily and Depakote 750 mg. The patient has consistently refused Depakote and so has been continued on a combination of lorazepam and aripiprazole. The patient received her first dose of Abilify Maintena 400 mg on April 26, 2016,her second dose on May 26, 2016, and third on June 25, 2016. Patient continues to be delusional and has refused oral supplementary aripiprazole. The patient continues to report "allergies" to medications due to weight gain and is refusing to take them. She has consistently refused Depakote for this reason. She is additionally refusing Trileptal as she has tried it in the past and is also "allergic" to it. She lists quetiapine and olanzapine in this same category but reluctantly took quetiapine but has subsequently declined this medication. She states that she is allergic to Zyprexa however she has no signs of allergic reaction to the medication and has received it several times without incident (although the patient reports her cracked hands are a side effect of all of these medications, rather than her constant cleaning). The patient has been refusing oral supplemental aripiprazole for several days and it was ultimately discontinued as the patient was becoming increasingly agitated. She is now stating that she no longer wishes to take the Abilify Maintena. Although the patient has been refusing a mood stabilizer, given the aripiprazole in her system, it was felt that a trial of an antidepressant may reduce irritability. The patient appears to be calmer and more organized over the last few days with fewer outbursts and more even mood. However, she continues to have some delusional content although this was greatly attenuated today. She is still asking about medications that may affect her . As much of her thinking today was on trauma and given her history with her children, it is not unexpected that she would be fixated on and starting a new life. Awaiting results of aripiprazole level. BENTLEY negative, rheumatoid factor pending. [place] I. Bipolar disorder, manic, with psychotic features, Posttraumatic stress disorder, Polysubstance use disorder, in early remission. [place] II. Deferred. [place] III. Hypertension, Insulin-dependent diabetes mellitus, hypothyroidism, and obesity, recent fall. [place] IV. Unknown. [place] V. Current Global Assessment of Functioning is 35 Medications Abilify Maintena 400 mg IM monthly, 1st given April 26, 2016, last given on 06/25, next due on 07/27/2016. Duloxetine 30mg PO daily Quetiapine 100mg po q4 hour PRN with olanzapine 10 mg IM backup. Lorazepam 1 mg daily and 2mg at bedtime and 1mg twice daily as needed. 2 mg IM backup Diazepam 10 mg nightly when necessary insomnia not addressed by Lunesta Lunesta 3mg po nighty prn insomnia Atorvastatin 40 mg daily. Albuterol metered dose inhaler as needed. Diphenhydramine 50 mg by mouth every 6 hours when necessary itching Glipizide 10 mg twice daily Ibuprofen 800 mg three times a day as needed. Levothyroxine 200 mcg daily. Lisinopril 5 mg daily. Metformin 1000 mg twice daily Methocarbamol 750 mg by mouth 4 times a day when necessary cramping Pantoprazole 40 mg daily. vitamin. Treatments 1. The patient is admitted to the inpatient unit and will be provided a safe and secure environment on about her we will R work were admitted. 2. The patient is denying current active suicidality and is not in need of a one-to-one at this time. 3. The patient is encouraged to participate with group and milieu activities. 4. The patient will be seen by the treatment team on a daily basis to assess symptoms, side effects and response to treatment. 5. The patient will be continued on her current medications and we have been encouraging addition of Depakote and Klonopin. Patient currently refusing. 6. Prolactin level drawn due to report of and prolonged use of antipsychotics, was found to be low, patient may warrant outpatient mammogram. If symptoms worsen consider ultrasound. 7. Case of perineal discomfort, fullness, and abdominal discomfort discussed with Dr. Arnold, Tnt Powder Worker. Pelvic US, and visual inspection recommended. US ordered and found to show evidence of calcification potentially related to fibroids. No visualization of adnexa. 8. Due to medication non-adherence and decompensation, patient received 180 day less restrictive order with 30 days inpatient stay. 9. Patient not meeting criteria of LRO, affidavit and paperwork filed for revocation. 10. Consider increasing Cymbalta to 40 mg daily. 11. CBC/CMP/ESR/CPK with no acute abnormality. Arthritis panel, aripiprazole level pending. Jez Stephens MD July 11, 2016 16:52
[2016-07-11] MEDS: LUNESTA 3 MG PO PRN (21:50)
--- NOTE | 2016-07-11 23:27 | NUR ---
Behavior P: Pt states that her muscles are "tight" and "I have a horrible time sleeping" I: Given E: Pt is resting quietly. Eyes closed. Addendum: 07/12/16 at 0258 by AMBROSE MAJANO RN 0245: Blood sugar checked at 0245 per patient request. Result = BS74, snacks given at this time, pt reported she could tell it was low because she is cold.
[2016-07-12] MEDS: LORazepam 1 mg Tablet PO PRN ×3 (02:23→14:25)
[2016-07-12] MEDS: HYDROcodone-APAP 5-325 mg Tablet PO PRN ×4 (02:23→23:04)
[2016-07-12] MEDS: diphenhydrAMINE 50 mg Capsule PO PRN (02:51)
[2016-07-12] MEDS: LORazepam 1 mg Tablet PO SCH ×3 (08:30→23:03)
[2016-07-12] MEDS: Pantoprazole 40 mg ER24 Tablet PO SCH (08:37)
[2016-07-12] MEDS: DULoxetine 30 mg DR Capsule PO SCH (08:38)
[2016-07-12] MEDS: Multivit-Miner-Folic Acid-Iron Tablet PO SCH (08:38)
[2016-07-12 09:22] VITALS: BP 134/85; PULSE 75; RESP 16
--- NOTE | 2016-07-12 15:14 | NUR ---
information systems security manager/Counselor: S: "I'm thankful for this baby inside me." O: Patient only slept 4.25 hours last night per staff. Patient denies S/I and H/I. She also denies auditory and visual hallucinations. Depression is 0/10 and anxiety is 0/10. A: Patient is cooperative, distactible, guarded, labile, irritable at times, mormon preoccupation, hyper-vigilant, paranoid, limited insight, limited judgment. P: Follow care plan, coordinate with out-patient providers, monitor behavior. Addendum: 07/12/16 at 1525 by BINTA GALLOWAY [facility] Patient attended and participated in both morning and afternoon group sessions.
--- NOTE | 2016-07-12 17:04 | PCM.PNPSY ---
Subjective Date of Service July 12, 2016 Subjective The patient was more tearful today talking about the losses in her life. She was also more focused on her and the need for a . Earlier in the day the patient was quite irritable with one of the mental health technicians. The patient reports that Cymbalta has been effective in her mood but would like to increase the dose somewhat. We discussed the risk of potentially worsening manic depression and she agreed to the trial. She stated she was "not bipolar and not schizophrenic but manic depressive." The patient reported that the methocarbamol was effective for her back pain and helped her sleep better. The patient reported that she was able to run and try to come to the aid of one of the staff members. Sleep: Patient reports slept well, staff report 4.25 hours Appetite: Good Suicidal and homicidal ideation: denies Auditory hallucinations: denies Visual hallucinations: denies Other Psychotic Symptoms: Delusions of Anxiety and depression increased due to ruminative thoughts. Mental Status Exam Vital Signs Vital Signs Date Time Temp Pulse Resp B/P Pulse Ox O2 Delivery O2 Flow Rate FiO2 07/12/16 09:22 36.5 75 16 134/85 Appearance: Neat/well groomed Attitude: Pleasant, Cooperative Behavior: Distractible Affect: Other (generally euthymic with a slight edge) Mood: Anxious Thought Process/Associations: Goal Directed Speech Production: Normal Speech Rate: Pressured (mild) Speech Articulation: Normal Thought Content: Latter-Day preoccupation, Somatic preoccupation, Perseveration Danger to Self/Suicidal Ideati: None Danger to Others: None Delusions: Somatic (Endorses) Hallucinations: Auditory (Denies), Visual (Denies) Consciousness: Hyper-vigilant Orientation: Person, Place, Date, Situation Memory: Grossly Intact Estimate Intellectual Function: Average Basis for IQ estimate: Awareness current events, Word use/vocabulary, Educational history Attention/Concentration & Cogn: Impaired Insight: Limited Judgement: Poor Result Diagram: 07/09/16 0923 07/09/16 0923 Mental Health Plan The patient is a 56-year-old female with a recent psychiatric hospitalization at the [facility] (admitted 05/01/2016 and discharged on 05/19/2016). The patient had been discharged to [facility], but she had been unable to follow expectations and was demonstrating symptoms of decompensation. On admission, she presented with multiple symptoms of bipolar disorder with psychosis including distractibility, pressured speech, racing thoughts, grandiose and paranoid delusions, increased activity, and poor interpersonal boundaries with impaired judgment and insight. The patient was admitted on a revocation of a less restrictive order following failure to comply with her less restrictive order. She has been tried on a number of medications but stabilized on a combination of aripiprazole 20 mg daily and Depakote 750 mg. The patient has consistently refused Depakote and so has been continued on a combination of lorazepam and aripiprazole. The patient received her first dose of Abilify Maintena 400 mg on April 26, 2016,her second dose on May 26, 2016, and third on June 25, 2016. Patient continues to be delusional and has refused oral supplementary aripiprazole. The patient continues to report "allergies" to medications due to weight gain and is refusing to take them. She has consistently refused Depakote for this reason. She is additionally refusing Trileptal as she has tried it in the past and is also "allergic" to it. She lists quetiapine and olanzapine in this same category but reluctantly took quetiapine but has subsequently declined this medication. She states that she is allergic to Zyprexa however she has no signs of allergic reaction to the medication and has received it several times without incident (although the patient reports her cracked hands are a side effect of all of these medications, rather than her constant cleaning). The patient has been refusing oral supplemental aripiprazole for several days and it was ultimately discontinued as the patient was becoming increasingly agitated. She is now stating that she no longer wishes to take the Abilify Maintena. Although the patient has been refusing a mood stabilizer, given the aripiprazole in her system, it was felt that a trial of an antidepressant may reduce irritability. The patient appears to be calmer and more organized over the last few days with fewer outbursts and more even mood. However, she continues to have some delusional content although this was greatly attenuated today. She is still asking about medications that may affect her . As much of her thinking today was on trauma and given her history with her children, it is not unexpected that she would be fixated on and starting a new life. Awaiting results of aripiprazole level. BENTLEY negative, rheumatoid factor negative. Other antipsychotics have not been terribly effective in stabilizing her and she has been unwilling to take a mood stabilizer which has been demonstrated on multiple occasions to be helpful. We will need to petition the court to attempt to assist in compliance. [place] I. Bipolar disorder, manic, with psychotic features, Posttraumatic stress disorder, Polysubstance use disorder, in early remission. [place] II. Deferred. [place] III. Hypertension, Insulin-dependent diabetes mellitus, hypothyroidism, and obesity, recent fall. [place] IV. Unknown. [place] V. Current Global Assessment of Functioning is 35 Medications Abilify Maintena 400 mg IM monthly, 1st given April 26, 2016, last given on 06/25, next due on 07/27/2016. Duloxetine 30mg PO daily Quetiapine 100mg po q4 hour PRN with olanzapine 10 mg IM backup. Lorazepam 1 mg daily and 2mg at bedtime and 1mg twice daily as needed. 2 mg IM backup Diazepam 10 mg nightly when necessary insomnia not addressed by Lunesta Lunesta 3mg po nighty prn insomnia Atorvastatin 40 mg daily. Albuterol metered dose inhaler as needed. Diphenhydramine 50 mg by mouth every 6 hours when necessary itching Glipizide 10 mg twice daily Ibuprofen 800 mg three times a day as needed. Levothyroxine 200 mcg daily. Lisinopril 5 mg daily. Metformin 1000 mg twice daily Methocarbamol 750 mg by mouth 4 times a day when necessary cramping Pantoprazole 40 mg daily. vitamin. Treatments 1. The patient is admitted to the inpatient unit and will be provided a safe and secure environment on about her we will R work were admitted. 2. The patient is denying current active suicidality and is not in need of a one-to-one at this time. 3. The patient is encouraged to participate with group and milieu activities. 4. The patient will be seen by the treatment team on a daily basis to assess symptoms, side effects and response to treatment. 5. The patient will be continued on her current medications and we have been encouraging addition of Depakote and Klonopin. Patient currently refusing. 6. Prolactin level drawn due to report of and prolonged use of antipsychotics, was found to be low, patient may warrant outpatient mammogram. If symptoms worsen consider ultrasound. 7. Case of perineal discomfort, fullness, and abdominal discomfort discussed with Dr. Arnold, Group Segment Consultant. Pelvic US, and visual inspection recommended. US ordered and found to show evidence of calcification potentially related to fibroids. No visualization of adnexa. 8. Due to medication non-adherence and decompensation, patient received 180 day less restrictive order with 30 days inpatient stay. 9. Patient not meeting criteria of LRO, affidavit and paperwork filed for revocation. 10. Increase Cymbalta to 40 mg daily. 11. We will petition for modification of order. Jez Stephens MD July 12, 2016 17:04
--- NOTE | 2016-07-12 17:57 | NUR ---
[facility] Day Shift Pt continues to have difficulty maintaining behavioral control throughout the shift. Pt affect remains labile, manic. Pt spends most of the shift pacing the unit, and attempting to engage in unit activities/interact with peers. Pt remains intrusive during interactions with staff and peers. Pt continues to have difficulty controlling her emotional expression, and becomes upset when staff attempts to set limits on her behavior. Pt continues to express delusions that she is . Pt attended all meals and ate approx 100% of all meals.
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
[2016-07-12] MEDS: LUNESTA 3 MG PO PRN (23:02)
--- NOTE | 2016-07-13 03:47 | NUR ---
[facility] Nursing 7p-7A PT has actually been sleeping most of the shift. PT woke up around 2100 and was in the day room. PT mood was good and she was listening to music and dancing around with other clients. Pt then showered. PT requested a few prn meds at HS and then was able to return to sleep and has been asleep for several hours now. Her mood is labile still and is exhibited when pt came up to the nurses' station and was directing the MHA to clean the tables and chairs in the day room and calling her "lazy" for not doing so. PT did c/o general pain per her baseline and was medicated accordingly. Will continue with current POC and monitor medication effectiveness and for any A/R.
[2016-07-13] MEDS: Pantoprazole 40 mg ER24 Tablet PO SCH (08:24)
[2016-07-13] MEDS: Multivit-Miner-Folic Acid-Iron Tablet PO SCH (08:24)
[2016-07-13] MEDS: LORazepam 1 mg Tablet PO SCH ×2 (08:25→21:00)
[2016-07-13] MEDS: DULoxetine 20 mg DR Capsule PO SCH (08:25)
[2016-07-13 08:35] VITALS: BP 140/84; PULSE 69; RESP 16
--- NOTE | 2016-07-13 12:16 | NUR ---
Nursing Note [id number] Behavior, Medications S/O: Pt has good appetite. Vital signs stable. Pt refused am scheduled Ativan. Pt out in milieu this morning dancing & cleaning. Pt has been making sexual comments to staff. Pt con't to believe she is & is a staff member here. "You guys need to calm down, it's not good for the baby." Conversation tracking clear & organized with slightly pressured rate & rhythm. Pleasant & cooperative with staff. She is intrusive with peers. A: Pt con't to be hypomanic & delusional. P: Provide supportive environment. Monitor medications & effects.
[2016-07-13] MEDS: LORazepam 1 mg Tablet PO PRN (12:21)
--- NOTE | 2016-07-13 19:09 | NUR ---
Nurses Note Evening Patient remains tense with pressured speech and temple preoccupation. She continues intrusive with peers and visitors and resists redirection and limit setting with agitated loud outbursts. Patient continues to lack insight into illness and the management of it. Maintain q 15min. checks for safety, support and limit setting. Addendum: 07/13/16 at 1917 by SUZETTE VALDES RN Amended: Links added.
--- NOTE | 2016-07-13 20:05 | NUR ---
seaport planning manager/Counselor: S: "I'm going to travel when I discharge." O: Patient only slept 4.5 hours last night per staff. Patient denies S/I and H/I. She also denies auditory and visual hallucinations. Depression is 0/10 and anxiety is 0/10. A: Patient is cooperative, distactible, guarded, labile, irritable at times, jain preoccupation, hyper-vigilant, paranoid, limited insight, limited judgment. P: Follow care plan, coordinate with out-patient providers, monitor behavior. Addendum: 07/13/16 at 2006 by BINTA ROBLES Patient attended and participated in the afternoon group session.
--- NOTE | 2016-07-13 20:41 | NUR ---
Observations 00 to 2129 Pt affect and mood continues to be labile, manic, intrusive, paranoid, agitated and delusional. Pt continues to be inappropriate with this assembly instructions writer, but only a couple of times today. Pt speech was rapid, rambling and loud. Pt eye contact was good. Pt attended meals in [facility]. and ate approximately 100%, 75% and 75% of her meals. Pt continues to have poor boundaries, inappropriate with staff and peers. Pt requires occasional staff redirection. Pt went out on patio with staff and peers to get some fresh air and enjoy the sunshine. Pt attended community meeting and set a daily goal. Pt rated her mood a 10/10, on a scale of 1 to 10, with 10 being the best. Pt stated that shes trying to stay positive. Pt was observed every 15 minutes throughout the shift as ordered.
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
--- NOTE | 2016-07-13 22:32 | PCM.PNPSY ---
Subjective Date of Service Jul 13, 2016 Subjective The patient met with the clerk of court today to discuss plan to modify order requesting patient to comply with mood stabilizer. Patient demanded this journalists and other writers speak to her in the day room and proceeded to yell that she would romana this journalists and other writers, that she had a wealthy 53 y.o. fiance that was hiring feed and farm management adviser, etc. She reported that she did not want mood stabilizers as she would gain weight and it would harm her baby. Ultimately, patient was escalating and interview terminated. Sleep: 4.5 hours per staff Appetite: Eating well Other Psychotic Symptoms: Delusions of , others, see above. Current Medications Current Medications Duloxetine HCl 40 mg DAILY PO Last administered on 07/13/16t 08:25; Admin Dose 40 MG; Start 07/13/16 at 08:30 Mental Status Exam Appearance: Neat/well groomed Attitude: Uncooperative, Hostile/Threatening Behavior: Distractible Affect: Labile Mood: Other (Angry) Thought Process/Associations: Goal Directed Speech Production: Loud Speech Rate: Pressured (mild) Speech Articulation: Normal Thought Content: Jainism preoccupation, Somatic preoccupation, Perseveration Delusions: Paranoid (Endorses), Somatic (Endorses) Hallucinations: Auditory (Denies), Visual (Denies) Consciousness: Hyper-vigilant Orientation: Person, Place, Date, Situation Memory: Grossly Intact Estimate Intellectual Function: Average Basis for IQ estimate: Awareness current events, Word use/vocabulary, Educational history Attention/Concentration & Cogn: Impaired Insight: Limited Judgement: Poor Result Diagram: 07/09/16 0923 07/09/16 0923 Mental Health Plan The patient is a 56-year-old female with a recent psychiatric hospitalization at the [facility] (admitted 05/01/2016 and discharged on 05/19/2016). The patient had been discharged to [facility], but she had been unable to follow expectations and was demonstrating symptoms of decompensation. On admission, she presented with multiple symptoms of bipolar disorder with psychosis including distractibility, pressured speech, racing thoughts, grandiose and paranoid delusions, increased activity, and poor interpersonal boundaries with impaired judgment and insight. The patient was admitted on a revocation of a less restrictive order following failure to comply with her less restrictive order. She has been tried on a number of medications but stabilized on a combination of aripiprazole 20 mg daily and Depakote 750 mg. The patient has consistently refused Depakote and so has been continued on a combination of lorazepam and aripiprazole. The patient received her first dose of Abilify Maintena 400 mg on April 26, 2016,her second dose on May 26, 2016, and third on June 25, 2016. Patient continues to be delusional and has refused oral supplementary aripiprazole. The patient continues to report "allergies" to medications due to weight gain and is refusing to take them. She has consistently refused Depakote for this reason. She is additionally refusing Trileptal as she has tried it in the past and is also "allergic" to it. She lists quetiapine and olanzapine in this same category but reluctantly took quetiapine but has subsequently declined this medication. She states that she is allergic to Zyprexa however she has no signs of allergic reaction to the medication and has received it several times without incident (although the patient reports her cracked hands are a side effect of all of these medications, rather than her constant cleaning). The patient has been refusing oral supplemental aripiprazole for several days and it was ultimately discontinued as the patient was becoming increasingly agitated. She is now stating that she no longer wishes to take the Abilify Maintena. The patient was quite agitated and delusional today when informed that we were attempting to have patient take Depakote. Patient let loose a torrent of threats and delusional material. Will proceed with attempt to have patient comply with Depakote. [place] I. Bipolar disorder, manic, with psychotic features, Posttraumatic stress disorder, Polysubstance use disorder, in early remission. [place] II. Deferred. [place] III. Hypertension, Insulin-dependent diabetes mellitus, hypothyroidism, and obesity, recent fall. [place] IV. Unknown. [place] V. Current Global Assessment of Functioning is 35 Medications Abilify Maintena 400 mg IM monthly, 1st given April 26, 2016, last given on 06/25, next due on 07/27/2016. Duloxetine 30mg PO daily Quetiapine 100mg po q4 hour PRN with olanzapine 10 mg IM backup. Lorazepam 1 mg daily and 2mg at bedtime and 1mg twice daily as needed. 2 mg IM backup Diazepam 10 mg nightly when necessary insomnia not addressed by Lunesta Lunesta 3mg po nighty prn insomnia Atorvastatin 40 mg daily. Albuterol metered dose inhaler as needed. Diphenhydramine 50 mg by mouth every 6 hours when necessary itching Glipizide 10 mg twice daily Ibuprofen 800 mg three times a day as needed. Levothyroxine 200 mcg daily. Lisinopril 5 mg daily. Metformin 1000 mg twice daily Methocarbamol 750 mg by mouth 4 times a day when necessary cramping Pantoprazole 40 mg daily. vitamin. Treatments 1. The patient is admitted to the inpatient unit and will be provided a safe and secure environment on about her we will R work were admitted. 2. The patient is denying current active suicidality and is not in need of a one-to-one at this time. 3. The patient is encouraged to participate with group and milieu activities. 4. The patient will be seen by the treatment team on a daily basis to assess symptoms, side effects and response to treatment. 5. The patient will be continued on her current medications and we have been encouraging addition of Depakote and Klonopin. Patient currently refusing. 6. Prolactin level drawn due to report of and prolonged use of antipsychotics, was found to be low, patient may warrant outpatient mammogram. If symptoms worsen consider ultrasound. 7. Case of perineal discomfort, fullness, and abdominal discomfort discussed with Dr. Arnold, Linen Supervisor. Pelvic US, and visual inspection recommended. US ordered and found to show evidence of calcification potentially related to fibroids. No visualization of adnexa. 8. Due to medication non-adherence and decompensation, patient received 180 day less restrictive order with 30 days inpatient stay. 9. Patient not meeting criteria of LRO, affidavit and paperwork filed for modification to comply with Depakote. 10. Increase Cymbalta to 40 mg daily. Jez Stephens MD Jul 13, 2016 22:32 Jez Stephens MD Jul 13, 2016 22:32 US ordered and found to show evidence of calcification potentially related to fibroids. No visualization of adnexa. 8. Due to medication non-adherence and decompensation, patient received 180 day less restrictive order with 30 days inpatient stay. 9. Patient not meeting criteria of LRO, affidavit and paperwork filed for revocation. 10. Increase Cymbalta to 40 mg daily. 11. We will petition for modification of order. Jez Stephens MD Jul 13, 2016 22:32
[2016-07-13] MEDS: LUNESTA 3 MG PO PRN (22:47)
[2016-07-13] MEDS: HYDROcodone-APAP 5-325 mg Tablet PO PRN (22:47)
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
[2016-07-14] MEDS: Pantoprazole 40 mg ER24 Tablet PO SCH (08:00)
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
[2016-07-14] MEDS: Multivit-Miner-Folic Acid-Iron Tablet PO SCH ×2 (08:30→13:19)
[2016-07-14] MEDS: DULoxetine 20 mg DR Capsule PO SCH ×2 (08:30→13:21)
[2016-07-14] MEDS: LORazepam 1 mg Tablet PO SCH ×3 (08:30→20:15)
[2016-07-14] MEDS: HYDROcodone-APAP 5-325 mg Tablet PO PRN (11:34)
[2016-07-14] MEDS: diphenhydrAMINE 50 mg Capsule PO PRN (13:21)
[2016-07-14 14:15] VITALS: BP 144/80; PULSE 98; RESP 16
[2016-07-14] MEDS: LORazepam 1 mg Tablet PO PRN (15:37)
--- NOTE | 2016-07-14 16:54 | PCM.PNPSY ---
Subjective Date of Service Jul 14, 2016 Subjective The patient went into seclusion overnight due to severe agitation, screaming, and yelling. She continued to be delusional, paranoid, and threatening. She urinated on the floor and reported to staff that her water had broken that her baby was coming. On assessment this morning the patient was clothed and laying in the seclusion room using derogatory terms towards this insurance underwriter sales and stating that this insurance underwriter sales was "fired." She also fired her civil rights attorney. Soon thereafter the patient reported that she wanted to drop her pants and exposed herself to the dressage judge. The patient continued to report that she did not want the mood stabilizer as it would cause her to gain weight. No meaningful conversation can be had. Sleep: Patient slept 1-2 hours Appetite: Eating, throwing food Suicidal and homicidal ideation: none reported Auditory hallucinations/Visual hallucinations: Unable to assess Other Psychotic Symptoms: Delusions of Anxiety and depression: Unable to assess Current Medications Current Medications Duloxetine HCl 40 mg DAILY PO Last administered on 07/13/16t 08:25; Admin Dose 40 MG; Start 07/13/16 at 08:30 Mental Status Exam Vital Signs Vital Signs Date Time Temp Pulse Resp B/P Pulse Ox O2 Delivery O2 Flow Rate FiO2 07/14/16 14:15 36.8 98 16 144/80 Appearance: Neat/well groomed Attitude: Uncooperative, Hostile/Threatening Behavior: Distractible Affect: Labile Mood: Other (Angry) Thought Process/Associations: Goal Directed Speech Production: Loud Speech Rate: Pressured (mild) Speech Articulation: Normal Thought Content: Pentecostal preoccupation, Somatic preoccupation, Perseveration Delusions: Paranoid (Endorses), Somatic (Endorses) Hallucinations: Auditory (Denies), Visual (Denies) Consciousness: Hyper-vigilant Orientation: Person, Place, Date, Situation Memory: Grossly Intact Estimate Intellectual Function: Average Basis for IQ estimate: Awareness current events, Word use/vocabulary, Educational history Attention/Concentration & Cogn: Impaired Insight: Limited Judgement: Poor Result Diagram: 07/09/16 0923 07/09/16 0923 Mental Health Plan The patient is a 56-year-old female with a recent psychiatric hospitalization at the [facility] (admitted 05/01/2016 and discharged on 05/19/2016). The patient had been discharged to [facility], but she had been unable to follow expectations and was demonstrating symptoms of decompensation. On admission, she presented with multiple symptoms of bipolar disorder with psychosis including distractibility, pressured speech, racing thoughts, grandiose and paranoid delusions, increased activity, and poor interpersonal boundaries with impaired judgment and insight. The patient was admitted on a revocation of a less restrictive order following failure to comply with her less restrictive order. She has been tried on a number of medications but stabilized on a combination of aripiprazole 20 mg daily and Depakote 750 mg. The patient has consistently refused Depakote and so has been continued on a combination of lorazepam and aripiprazole. The patient received her first dose of Abilify Maintena 400 mg on April 26, 2016,her second dose on May 26, 2016, and third on June 25, 2016. Patient continues to be delusional and has refused oral supplementary aripiprazole. The patient continues to report "allergies" to medications due to weight gain and is refusing to take them. She has consistently refused Depakote for this reason. She is additionally refusing Trileptal as she has tried it in the past and is also "allergic" to it. She lists quetiapine and olanzapine in this same category but reluctantly took quetiapine but has subsequently declined this medication. She states that she is allergic to Zyprexa however she has no signs of allergic reaction to the medication and has received it several times without incident (although the patient reports her cracked hands are a side effect of all of these medications, rather than her constant cleaning). The patient has been refusing oral supplemental aripiprazole for several days and it was ultimately discontinued as the patient was becoming increasingly agitated. She is now stating that she no longer wishes to take the Abilify Maintena. The patient has been quite agitated and delusional since receiving paperwork that they compelled medication hearing has been scheduled. As the patient is on a 180 day order, the court order is required for ongoing involuntary treatment. Again today, the patient let loose a torrent of threats and delusional material. A medication hearing for 07/21/2016 was set. [place] I. Bipolar disorder, manic, with psychotic features, Posttraumatic stress disorder, Polysubstance use disorder, in early remission. [place] II. Deferred. [place] III. Hypertension, Insulin-dependent diabetes mellitus, hypothyroidism, and obesity, recent fall. [place] IV. Unknown. [place] V. Current Global Assessment of Functioning is 25 Medications Abilifayad Maintena 400 mg IM monthly, 1st given April 26, 2016, last given on 06/25, next due on 07/27/2016. Duloxetine 30mg PO daily Quetiapine 100mg po q4 hour PRN with olanzapine 10 mg IM backup. Lorazepam 1 mg daily and 2mg at bedtime and 1mg twice daily as needed. 2 mg IM backup Diazepam 10 mg nightly when necessary insomnia not addressed by Lunesta Lunesta 3mg po nighty prn insomnia Atorvastatin 40 mg daily. Albuterol metered dose inhaler as needed. Diphenhydramine 50 mg by mouth every 6 hours when necessary itching Glipizide 10 mg twice daily Ibuprofen 800 mg three times a day as needed. Levothyroxine 200 mcg daily. Lisinopril 5 mg daily. Metformin 1000 mg twice daily Methocarbamol 750 mg by mouth 4 times a day when necessary cramping Pantoprazole 40 mg daily. vitamin. Treatments 1. The patient is admitted to the inpatient unit and will be provided a safe and secure environment on about her we will R work were admitted. 2. The patient is denying current active suicidality and is not in need of a one-to-one at this time. 3. The patient is encouraged to participate with group and milieu activities. 4. The patient will be seen by the treatment team on a daily basis to assess symptoms, side effects and response to treatment. 5. The patient will be continued on her current medications and we have been encouraging addition of Depakote and Klonopin. Patient currently refusing. Risperidone previously caused agitation. Olanzapine appears to be of little effect. 6. Prolactin level drawn due to report of and prolonged use of antipsychotics, was found to be low, patient may warrant outpatient mammogram. If symptoms worsen consider ultrasound. 7. Requesting modification of order to compel medications on an ongoing basis. 8. Due to medication non-adherence and decompensation, patient received 180 day less restrictive order with 30 days inpatient stay. 9. Should medication order be successful and patient would not comply, we will need to pursue revocation. 10. If agitation persists would discontinue Cymbalta. Jez Stephens MD Jul 14, 2016 16:54 Jez Stephens MD Jul 14, 2016 16:54
--- NOTE | 2016-07-14 18:49 | NUR ---
[facility] Pt continues to have difficulty maintaining behavioral control throughout the shift. Pt affect remains labile, manic (more so than noted on previous shifts). Pt spends most of the shift pacing the unit, and attempting to engage in unit activities/interact with peers. Pt remains intrusive during interactions with staff and peers. Pt continues to have difficulty controlling her emotional expression, and becomes upset when staff attempts to set limits on her behavior. Pt continues to express various paranoid delusions. Pt attended all meals and ate approx 100% of all meals.
[2016-07-14] MEDS: LUNESTA 3 MG PO PRN (20:35)
[2016-07-14] MEDS: Magnesium Hydroxide 10 mL Oral Concentration PO PRN (21:56)
[2016-07-15] MEDS: diphenhydrAMINE 50 mg Capsule PO PRN (01:36)
[2016-07-15] MEDS: HYDROcodone-APAP 5-325 mg Tablet PO PRN ×3 (01:36→22:40)
[2016-07-15] MEDS: Benzocaine-Menthol Lozenge 2/Pkg PO PRN (01:36)
--- NOTE | 2016-07-15 05:35 | NUR ---
Nursing Noc Pt continues to struggle with behavioral control and sleep. Noted to appear quite hypomanic and hypersexual and paranoid throughout this shift. Noted to achieve just 3 hours of sleep this shift. Pt noted to want to have 1:1 communication with personal lines underwriter throughout the shift and make sexual comments r/t her behavior in seclusion the previous night. Continuing to monitor mood, behavior and emotional state with Q15 minutes safety checks.
[2016-07-15] MEDS: LORazepam 1 mg Tablet PO PRN ×2 (05:46→09:17)
[2016-07-15] MEDS: Pantoprazole 40 mg ER24 Tablet PO SCH (08:13)
[2016-07-15] MEDS: DULoxetine 20 mg DR Capsule PO SCH (08:14)
[2016-07-15] MEDS: Multivit-Miner-Folic Acid-Iron Tablet PO SCH (08:16)
[2016-07-15] MEDS: LORazepam 1 mg Tablet PO SCH ×2 (08:30→22:40)
--- NOTE | 2016-07-15 13:21 | NUR ---
NURSING DAYS 7-7 S-Patient states "these people up her are out to get me but they won't, you are OK but those other nurses are so mean, they just are her for the money, slackers" O- Patient appears mildly manic, walking halls quickly, and helping other patients with meals. Patient requesting PRN Ativan. A- Patient given 1mg Ativan and states "I going to take a nap now". Nurse played football in [email or web address] and let patient vent about her frustrations. Patient has a sore throat due to "I was screaming earlier this week" P- Continue to listen and provide boundaries to patient, give medication and follow plan of care.
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
[2016-07-15] MEDS: Magnesium Hydroxide 10 mL Oral Concentration PO PRN (18:34)
[2016-07-15 19:40] VITALS: BP 136/76; PULSE 65; RESP 16
--- NOTE | 2016-07-15 20:06 | NUR ---
OBSERVATIONS Pt is labile, pleasant and cooperative one minute, indignant and entitled the next. Pt becomes agitated when Pt had minimal conflict with other pts during this shift. Pt participated in group activities but participation was detrimental to the rest of the group. Pt ate at meal and snack times. Maintained Q15 checks for safety as directed.
[2016-07-15] MEDS: LUNESTA 3 MG PO PRN (20:49)
[2016-07-16] MEDS: diphenhydrAMINE 50 mg Capsule PO PRN ×2 (00:58→23:54)
[2016-07-16] MEDS: LORazepam 1 mg Tablet PO PRN ×2 (00:59→23:13)
--- NOTE | 2016-07-16 05:39 | NUR ---
Nursing Noc Pt remains hypomanic this shift, but more positive without huge behavioral issues this night. Still remains intrusive but without obvious anger/rage. 3.75 hours of broken sleep this shift. All available PRN requested for anxiety and sleep. Continuing to monitor mood, behavior and emotional state. Q15 minutes safety checks performed throughout the night. CP
--- NOTE | 2016-07-16 05:55 | NUR ---
Observations 1900 - 0700 Pt was observed to be pacing unit, intrusive and was out on the unit most of the evening. Pt was pleasant, polite and cooperative when approached. Pt maintained behavior throughout the shift but did require occasional staff redirection. Pt speech was loud and rambling and eye contact was good. Pt watched some TV with peers before bed. Pt ate snack. Pt took a long shower. Pt first appeared asleep at 2330, awoke a few times and had broken sleep. Pt was observed every 15 minutes through the night as ordered. Pt is currently in bed resting and appears asleep, respiration apparent.
[2016-07-16] MEDS: DULoxetine 20 mg DR Capsule PO SCH (07:41)
[2016-07-16] MEDS: Multivit-Miner-Folic Acid-Iron Tablet PO SCH (07:42)
[2016-07-16] MEDS: Pantoprazole 40 mg ER24 Tablet PO SCH (07:42)
[2016-07-16] MEDS: LORazepam 1 mg Tablet PO SCH ×2 (08:30→22:35)
--- NOTE | 2016-07-16 10:59 | NUR ---
NURSING DAYS 7-3 S/O--Patient out in milieu interacting with patients and staff appears semi manic, refused am Ativan. Patient has been appropriate with others so far, helping in dining room and supportive at community meeting (did reading). Blood sugar well controlled. A- Nurse using attentive listening, setting boundaries around sexual issues, and medications administration. P- Patient waiting for bed a [facility], is on LRO may need to be on MRO for acceptance.
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
[2016-07-16 13:01] VITALS: BP 137/81; PULSE 79; RESP 16
--- NOTE | 2016-07-16 18:43 | NUR ---
[facility] Day Shift Pt maintained behavioral control throughout the shift. Pt affect remains labile, but is notably less exuberant than observed on previous shifts. Pt continues to spend most of the shift interacting with staff and peers, participating in unit activities, and pacing the unit. Pt remains manic during interactions with staff and peers, but is somewhat more reserved than noted on previous shifts. Pt attended all unit activities and participated actively. Pt attended all meals and ate approx 100% of all meals.
[2016-07-16] MEDS: HYDROcodone-APAP 5-325 mg Tablet PO PRN (22:36)
[2016-07-16] MEDS: LUNESTA 1 MG PO PRN (22:37)
--- NOTE | 2016-07-16 23:05 | NUR ---
NURSING NOTE [id number] Mood: "good, girlie" *grins* Affect: pleasant, social Behavior: pt. has maintained behavioral control all shift; no outbursts and has not been overly intrusive as has been her tendency over the past few evenings. Very friendly w/staff and peers. Makes many attempts to be helpful around the unit, attempting to assist her peers w/their various ailments and concerns. She has been med compliant. FSBS at dinner was 142 and HS 138 (her dinner FSBS she later admitted she had already begun eating her food but denies having done so at HS). Her daughter visited and brought letters from the pt's grandchildren which the pt. tearfully read aloud to staff and peers. Thought processes: continues to be delusional and believes she is . Very little lability this shift, occasionally was tearful when talking about her grandchildren but maintained her composure. No SI/HI today.
--- NOTE | 2016-07-17 06:19 | NUR ---
Nursing note:mini shifter/sleep Patient awake frequently during the night, despite HS sleep medication and additional prn of Ativan 1 mg repeated twice. Patient continues with rambling speech, occasional paranoid content. Patient awake early am caretaking an older female peer. Patient only sleeping a total 3.25 hours. Patient continues with fragmented inadequate sleep.
[2016-07-17] MEDS: Pantoprazole 40 mg ER24 Tablet PO SCH (07:36)
[2016-07-17] MEDS: DULoxetine 20 mg DR Capsule PO SCH (07:39)
[2016-07-17] MEDS: Multivit-Miner-Folic Acid-Iron Tablet PO SCH (07:39)
[2016-07-17] MEDS: LORazepam 1 mg Tablet PO SCH ×2 (07:40→22:37)
[2016-07-17 08:30] VITALS: BP 141/83; PULSE 98; RESP 18
[2016-07-17] MEDS: LORazepam 1 mg Tablet PO PRN ×3 (09:39→23:39)
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
--- NOTE | 2016-07-17 14:45 | PCM.PNPSY ---
Subjective Date of Service Jul 17, 2016 Subjective I spent 30 minutes both reviewing treatment plan with our clinical team, interviewing the patient and providing supportive/educational psychotherapy. I spent more than 50% of the time counseling the patient. I reviewed the treatment plan with the patient and discussed options available including the potential risks, benefits and side effects. Malu reports no difficulty in her thought organization or mood stability. She reports continued hypomania but that she has had no significant conflicts with staff or peers over the past 24 hours.. She repeated many of the ways that she feels that her rights are not being respected. Staff reports continued difficulty time with boundaries and mood stability. She slept 3 hours and denies psychotic symptoms review. During my time with her she was calm pleasant and appropriate. She had requested lyrics to different songs that she enjoyed. We reviewed the lyrics of mariia by the mikayla and she related the meaning that it had for her. She was sexually provocative w/ our system programmer baring her breasts and screaming that "you are fucking Abdoul" with no provocation. She denies medication side effects. She was able to identify her medications and what they were used to treat Current Medications Current Medications Patient Own Medication 1 ea HS PRN PO Last administered on 07/16/16t 22:37; Admin Dose 1 EA; Start 07/15/16 at 21:15 Mental Status Exam Vital Signs Vital Signs Date Time Temp Pulse Resp B/P Pulse Ox O2 Delivery O2 Flow Rate FiO2 07/17/16 08:30 36.4 98 18 141/83 Appearance: Neat/well groomed Attitude: Pleasant, Cooperative, Guarded, Uncooperative, Hostile/Threatening, Other (alternatives between extremes of calm and organized to bizarre and agitated) Behavior: No unusual behavior Affect: Labile Mood: Euthymic, Irritable, Dysthymic, Anxious, Fearful Thought Process/Associations: Logical/Sequential, Goal Directed, Loose, Tangential Speech Production: Normal, Loud Speech Rate: Normal, Pressured Speech Articulation: Normal Thought Content: Appropriate, Somatic preoccupation, Perseveration, Erotomanic Danger to Self/Suicidal Ideati: None Danger to Others: None Delusions: Paranoid (Endorses), Somatic (Endorses) Consciousness: Hyper-vigilant Orientation: Person, Place, Date, Situation Memory: Grossly Intact Estimate Intellectual Function: Above Average Basis for IQ estimate: Awareness current events, Word use/vocabulary, Educational history Attention/Concentration & Cogn: Impaired Insight: Limited Judgement: Limited Mental Health Plan The patient is a 56-year-old female with a recent psychiatric hospitalization at the [facility] (admitted 05/01/2016 and discharged on 05/19/2016). The patient had been discharged to [facility], but she had been unable to follow expectations and was demonstrating symptoms of decompensation. On admission, she presented with multiple symptoms of bipolar disorder with psychosis including distractibility, pressured speech, racing thoughts, grandiose and paranoid delusions, increased activity, and poor interpersonal boundaries with impaired judgment and insight. The patient was admitted on a revocation of a less restrictive order following failure to comply with her less restrictive order. She has been tried on a number of medications but stabilized on a combination of aripiprazole 20 mg daily and Depakote 750 mg. The patient has consistently refused Depakote and so has been continued on a combination of lorazepam and aripiprazole. The patient received her first dose of Abilify Maintena 400 mg on April 26, 2016,her second dose on May 26, 2016, and third on June 25, 2016. The patient did agree to a trial of Cymbalta, but it is too early to tell whether this has been helpful or not. She has an extensive traumatic life history involving drugs, abuse, and exploitation which are compounded by her concern about her daughter who is struggling with mental illness and addiction and a granddaughter who she views as vulnerable. She slept about 4 hours however she feels rested. Staff reports continued difficulty with intrusive behaviors and paranoid when triggered by client or staff. She denies medication side effects, and feels that she has been crying less since starting the Cymbalta. I believe she would benefit from a twice a day antipsychotic and mood stabilizer. She does have a medication override signed by 2 physicians however since she has been on a 180 MR she now requires a court override for medication's. Request is been filed for the court. [place] I. Bipolar disorder, manic, with psychotic features, Posttraumatic stress disorder, Polysubstance use disorder, in early remission. [place] II. Deferred. [place] III. Hypertension, Insulin-dependent diabetes mellitus, hypothyroidism, and obesity, recent fall. [place] IV. Unknown. [place] V. Current Global Assessment of Functioning is 30 Medications Abilify Maintena 400 mg IM monthly, 1st given April 26, 2016, last given on 06/25, next due on 07/27/2016. Duloxetine 30mg PO daily Quetiapine 100mg po q4 hour PRN with olanzapine 10 mg IM backup. Lorazepam 1 mg daily and 2mg at bedtime and 1mg twice daily as needed. 2 mg IM backup Diazepam 10 mg nightly when necessary insomnia not addressed by Lunesta Lunesta 3mg po nighty prn insomnia Atorvastatin 40 mg daily. Albuterol metered dose inhaler as needed. Diphenhydramine 50 mg by mouth every 6 hours when necessary itching Glipizide 10 mg twice daily Ibuprofen 800 mg three times a day as needed. Levothyroxine 200 mcg daily. Lisinopril 5 mg daily. Metformin 1000 mg twice daily Methocarbamol 750 mg by mouth 4 times a day when necessary cramping Pantoprazole 40 mg daily. vitamin. Treatments Patient is being provided with a high degree of safety through our unit structure and active adult engagement provided by our mental health professionals, mental health technicians, psychiatric nurses and myself. We are focusing on developing improved coping skills and identifying stressors that may have led to current episode. We will attempt to: * Integrate into therapeutic groups, milieu and individual therapy. * Maintain in a closely monitored and structured unit * Provide low-stimulation environment * Obtain collateral data to assist in treatment planning * Assess degree of lability of affect and impulse control * Complete safety plan * Decrease frequency of relapse and need for re-hospitalization * Establish a consistent sleep pattern * Medication effective in stabilization of mood and/or thought process * Tolerates medication without side effects * Patient will be on the following psychiatric medications: Abilify Maintena 400 mg IM monthly, 1st given April 26, 2016, last given on 06/25, next due on 07/27/2016. Duloxetine 30mg PO daily (If agitation persists would discontinue Cymbalta) Quetiapine 100mg po q4 hour PRN Lorazepam 1 mg daily and 2mg at bedtime and 1mg twice daily as needed. 2 mg IM backup Diazepam 10 mg nightly when necessary insomnia not addressed by Lunesta Lunesta 3mg po nighty prn insomnia Education: Educate patient about recreational drug use as an etiology Educate about metabolic etiologies related to obesity Patient's legal status Patient is on a 180 day LR O +30 involuntary treatment hold. Anticipated number of hospital days to achieve above goals: Unknown. Patient needs a regular potent antipsychotic and mood stabilizer which at this time she is refusing. Disposition: Patient likely will need long-term treatment at [facility]. Liam Dobbins MD Jul 17, 2016 14:45
--- NOTE | 2016-07-17 15:21 | NUR ---
[employer]/Counselor S;"I got love letters from my grandbabies yesterday!" O: Patient has not had any SI or HI, no auditory or visual hallucinations. Her level of depression and anxiety were at 0. Patient was elated about her visits yesterday and was in a very happy mood. A: Patient was very cooperative and eager to share her visit from her daughter. She was very excited and exuberant. P:P: Follow care plan and coordinate with outpatient providers. Monitor behaviors.
[2016-07-17] MEDS: diphenhydrAMINE 50 mg Capsule PO PRN ×2 (17:31→22:38)
--- NOTE | 2016-07-17 18:33 | NUR ---
Observations [id number] Pt angry in the morning, threatening to romana staff and hospital regarding care. Pt made reference to [facility]- "go ahead and send me there, it's better then this hellhole." Pt very negative in the morning, talking about ex as well as lack of consistency of rules. Pt was active on unit, spending time on patio, playing ping pong, listening to music, and watching movie. Pt spent evening more isolated, in room. Pt said multiple times during the day "I'm not dealing with this soap opera anymore." Pt emotional regarding letters that her granddaughters wrote her, shared with staff and other patients. She attended all meals, eating 100%. She was observed every 15 minutes of shift as directed.
[2016-07-17] MEDS: HYDROcodone-APAP 5-325 mg Tablet PO PRN (22:38)
[2016-07-17] MEDS: LUNESTA 1 MG PO PRN (22:39)
[2016-07-18] MEDS: diphenhydrAMINE 50 mg Capsule PO PRN ×2 (04:05→18:53)
[2016-07-18] MEDS: HYDROcodone-APAP 5-325 mg Tablet PO PRN ×2 (04:57→21:02)
--- NOTE | 2016-07-18 05:35 | NUR ---
Nursing note: valver/sleep, prn 05:30 Patient continues very angry and delusional. Patient made a statement that "I am going to beat the Sh-- out of her" referring to another female peer. Patient also making several delusional and paranoid statements about staff and doctors with rude and blunt sexual content. Patient with numerous somatic concerns of all over body pain. Patient also showed staff a tooth that had fallen out of the top of her mouth. Patient complains of feeling tired, but can't sleep. Patient received several prn medications during the night for pain and sleep with minimal effect. Patient currently resting quietly in bed.
[2016-07-18] MEDS: DULoxetine 20 mg DR Capsule PO SCH (07:43)
[2016-07-18] MEDS: Pantoprazole 40 mg ER24 Tablet PO SCH (07:43)
[2016-07-18] MEDS: Multivit-Miner-Folic Acid-Iron Tablet PO SCH (07:43)
[2016-07-18 07:53] VITALS: BP 151/86; PULSE 63; RESP 17
[2016-07-18] MEDS: LORazepam 1 mg Tablet PO SCH ×2 (08:30→21:03)
[2016-07-18] MEDS ORDERED: Albuterol HFA 60 Puff 8 Gm Inhaler INHALATION PRN (12:35)
[2016-07-18] MEDS ORDERED: Benzocaine-Menthol Lozenge 2/Pkg PO PRN (12:35)
--- NOTE | 2016-07-18 12:46 | PCM.PNPSY ---
Subjective Date of Service Jul 18, 2016 Subjective I spent 30 minutes both reviewing treatment plan with our clinical team, interviewing the patient and providing supportive/educational psychotherapy. I spent more than 50% of the time counseling the patient. I reviewed the treatment plan with the patient and discussed options available including the potential risks, benefits and side effects. Malu has been presenting to different conditions. At the moment I am on the positive end of her transference. With me she Reports no difficulty in her thought organization or mood stability. During my 30 minute session with her she was calm pleasant and appropriate. She had requested lyrics to different songs that she enjoyed. We reviewed the lyrics of free falling by Wyatt keating and she related the meaning that it had for her. Staff however reports continued hypomania with psychotic delusional thoughts. They report she has had less significant conflicts with peers over the past 24 hours but continues to be highly agitated and delusional with staff.. She tends to repeat many of the ways that she feels that her rights are not being respected. Staff reports continued difficulty time with boundaries and mood stability. She slept only 4 hours and has significant irritability and delusional thought.. She was sexually provocative w/ our program rep on Sunday baring her breasts and screaming that "you are fucking Abdoul" with no provocation. She denies medication side effects. She is very attached to the Cymbalta because she states she is no longer crying. There is some concern that this may be contributing to her yahaira and psychosis. She was able to identify her medications and what they were used to treat. She is refusing my requests for a typical neuroleptic and a mood stabilizer. Mental Status Exam Appearance: Neat/well groomed Attitude: Pleasant, Cooperative, Guarded, Uncooperative, Hostile/Threatening, Other (alternatives between extremes of calm and organized to bizarre and agitated) Behavior: No unusual behavior Affect: Labile Mood: Euthymic, Irritable, Dysthymic, Anxious, Fearful Thought Process/Associations: Logical/Sequential, Goal Directed, Loose, Tangential Speech Production: Normal, Loud Speech Rate: Normal, Pressured Speech Articulation: Normal Thought Content: Appropriate, Somatic preoccupation, Perseveration, Erotomanic Danger to Self/Suicidal Ideati: None Danger to Others: None Delusions: Paranoid (Endorses), Somatic (Endorses) Consciousness: Hyper-vigilant Orientation: Person, Place, Date, Situation Memory: Grossly Intact Estimate Intellectual Function: Above Average Basis for IQ estimate: Awareness current events, Word use/vocabulary, Educational history Attention/Concentration & Cogn: Impaired Insight: Limited Judgement: Limited Mental Health Plan The patient is a 56-year-old female with a recent psychiatric hospitalization at the [facility] (admitted 05/01/2016 and discharged on 05/19/2016). The patient had been discharged to [facility], but she had been unable to follow expectations and was demonstrating symptoms of decompensation. On admission, she presented with multiple symptoms of bipolar disorder with psychosis including distractibility, pressured speech, racing thoughts, grandiose and paranoid delusions, increased activity, and poor interpersonal boundaries with impaired judgment and insight. The patient was admitted on a revocation of a less restrictive order following failure to comply with her less restrictive order. She has been tried on a number of medications but stabilized on a combination of aripiprazole 20 mg daily and Depakote 750 mg. The patient has consistently refused Depakote and so has been continued on a combination of lorazepam and aripiprazole. The patient received her first dose of Abilify Maintena 400 mg on April 26, 2016,her second dose on May 26, 2016, and third on June 25, 2016. Malu has been presenting two different conditions. At the moment I am on the positive end of her transference. With me she Reports no difficulty in her thought organization or mood stability. During my 30 minute session with her she was calm pleasant and appropriate. She had requested lyrics to different songs that she enjoyed. We reviewed the lyrics of free falling by Wyatt keating and she related the meaning that it had for her. Staff however reports continued hypomania with psychotic delusional thoughts. They report she has had less significant conflicts with peers over the past 24 hours but continues to be highly agitated and delusional with staff.. She tends to repeat the many ways that she feels that her rights are not being respected. Staff reports continued difficulty time with boundaries and mood stability. She slept only 4 hours and has significant irritability and delusional thought.. She was sexually provocative w/ our program rep on Sunday baring her breasts and screaming that "you are fucking Abdoul" with no provocation. She denies medication side effects. She is very attached to the Cymbalta because she states she is no longer crying. There is some concern that this may be contributing to her yahaira and psychosis. She was able to identify her medications and what they were used to treat. She is refusing my requests for a typical neuroleptic and a mood stabilizer. [place] I. Bipolar disorder, manic, with psychotic features, Posttraumatic stress disorder, Polysubstance use disorder, in early remission. [place] II. Deferred. [place] III. Hypertension, Insulin-dependent diabetes mellitus, hypothyroidism, and obesity, recent fall. [place] IV. Unknown. [place] V. Current Global Assessment of Functioning is 30 Medications Abilify Maintena 400 mg IM monthly, 1st given April 26, 2016, last given on 06/25, next due on 07/27/2016. Duloxetine 30mg PO daily Quetiapine 100mg po q4 hour PRN with olanzapine 10 mg IM backup. Lorazepam 1 mg daily and 2mg at bedtime and 1mg twice daily as needed. 2 mg IM backup Diazepam 10 mg nightly when necessary insomnia not addressed by Lunesta Lunesta 3mg po nighty prn insomnia Atorvastatin 40 mg daily. Albuterol metered dose inhaler as needed. Diphenhydramine 50 mg by mouth every 6 hours when necessary itching Glipizide 10 mg twice daily Ibuprofen 800 mg three times a day as needed. Levothyroxine 200 mcg daily. Lisinopril 5 mg daily. Metformin 1000 mg twice daily Methocarbamol 750 mg by mouth 4 times a day when necessary cramping Pantoprazole 40 mg daily. vitamin. Treatments Patient is being provided with a high degree of safety through our unit structure and active adult engagement provided by our mental health professionals, mental health technicians, psychiatric nurses and myself. We are focusing on developing improved coping skills and identifying stressors that may have led to current episode. We will attempt to: * Integrate into therapeutic groups, milieu and individual therapy. * Maintain in a closely monitored and structured unit * Provide low-stimulation environment * Obtain collateral data to assist in treatment planning * Assess degree of lability of affect and impulse control * Complete safety plan * Decrease frequency of relapse and need for re-hospitalization * Establish a consistent sleep pattern * Medication effective in stabilization of mood and/or thought process * Tolerates medication without side effects * Patient will be on the following psychiatric medications: Abilify Maintena 400 mg IM monthly, 1st given April 26, 2016, last given on 06/25, next due on 07/27/2016. Duloxetine 30mg PO daily (If agitation persists may need to discontinue Cymbalta, I will defer this to Dr. Jackman judgment next week) Quetiapine 100mg po q4 hour PRN Lorazepam 1 mg daily and 2mg at bedtime and 1mg twice daily as needed. 2 mg IM backup Diazepam 10 mg nightly when necessary insomnia not addressed by Lunesta Lunesta 3mg po nighty prn insomnia Education: Educate patient about recreational drug use as an etiology Educate about metabolic etiologies related to obesity Patient's legal status Patient is on a 180 day LR O +30 involuntary treatment hold. Anticipated number of hospital days to achieve above goals: Unknown. Patient needs a regular potent antipsychotic and mood stabilizer which at this time she is refusing. Disposition: Patient likely will need long-term treatment at [facility]. Liam Dobbins MD Jul 18, 2016 12:46
--- NOTE | 2016-07-18 14:18 | NUR ---
Nursing: Day shift: 07 to 1900 S: I am worried about ---- (peer). Her boyfriend uses drugs. a friend at [employer] told me. O: Malu greets all staff in animated manner. 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 Is so familiar with all unit routines that she can be overly directive toward peers. Participated in groups appropriately. Deerin 0800 for pain but has not been making frequent requests for pain or anxiety medications today. A: Maintaining behavioral control. Remains delusional about and specific [facility] male staff member. Addendum: 07/18/16 at 1439 by RENITA HARTMANN RN Amended: Links added.
--- NOTE | 2016-07-18 14:54 | NUR ---
Obs Dayshift Pt has been slightly more calm today than past days, with a few times where she is worked up or irritable and pacing to calm herself down. Pt is restless but more easily refocused by staff. Pt is attending groups, participating and attempting to be more appropriate. Pt continues to have poor boundaries w/ peers and staff. Pt continues to believe that she is being lied to and that she is , however the sex of the baby and the father of the baby is changing. 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 Pt is restless, disorganized thought process, fixed delusional thinking. Good ADL's, Good meals
[2016-07-18] MEDS: LORazepam 1 mg Tablet PO PRN ×2 (18:09→23:49)
[2016-07-18] MEDS: LUNESTA 1 MG PO PRN (21:09)
[2016-07-19] MEDS: diphenhydrAMINE 50 mg Capsule PO PRN ×2 (02:47→18:35)
[2016-07-19] MEDS: HYDROcodone-APAP 5-325 mg Tablet PO PRN ×3 (02:51→18:35)
--- NOTE | 2016-07-19 05:56 | NUR ---
Nursing Noc Pt remains emotionally labile, delusion, angry or euphoric. Continues to have poor sleep. Continuing to monitor mood behavior and emotional state. CP
--- NOTE | 2016-07-19 07:11 | NUR ---
Observations 1900 - 0700 Pt was observed to be pacing unit, very intrusive with peers and was out on the unit most of the evening. Pt was agitated, imitated, labile and manic. Pt speech was loud and rambling and eye contact was intense. Pt was cussing and yelling at parts data writer and was talked to by other staff. Pt later apologized and asked for forgiveness. Pt ate snack. Pt required frequent staff redirection during this shift. Pt first appeared asleep at 0130, but only slept about an hour. Pt was observed every 15 minutes through the night as ordered.
[2016-07-19] MEDS: Multivit-Miner-Folic Acid-Iron Tablet PO SCH (08:23)
[2016-07-19] MEDS: DULoxetine 20 mg DR Capsule PO SCH (08:23)
[2016-07-19] MEDS: LORazepam 1 mg Tablet PO PRN ×4 (08:39→21:05)
--- NOTE | 2016-07-19 11:49 | NUR ---
Wharf Attendant/Counselor S:" I feel a gazillion times great!" O: Patient stated she never has any SI or HI, nor any auditory or visual hallucinations. She stated that her depression and anxiety levels are at a 0. She made good eye contact and stated that the reason she only slept 1 hour was because she was worried about her children. A:She was cooperative, and chatty. Patient had to be redirected a few times, and was reminded that it was lunch time. Patient was outside on the patio at the time. P: Follow care plan and coordinate with outpatient providers. Monitor erratic behaviors as needed.
[2016-07-19 13:31] VITALS: BP 129/75; PULSE 90; RESP 20
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
[2016-07-19] MEDS: Magnesium Hydroxide 10 mL Oral Concentration PO PRN (18:12)
--- NOTE | 2016-07-19 18:48 | NUR ---
Obs Dayshift Pt is has been restless, easily irritable, delusional w/ grandiose thoughts. Pt is back to thinking that she has been hired here on the unit, that she is 7 months w/ a son, and dating a man named Bertrand that lives in [place] and has hired Clothing Designer to get her out of here. Pt is not able to track conversations well, very disruptive, demanding. Pt was trying multi times to "close the door to the patio because I am staff here and have the right to do that." Pt began demanding to see the results to her ultrasound because she just knew that staff was lying to her about the , staff gently tried to explain that they didn't know she was and pt became very upset hitting the lundberg in her room w/ tennis shoes, yelling and swearing. Pt was able to calm herself for a short time, then she became worked up again after a peer was upset and yelling at staff. Pt was threatening toward staff, challenging physically, threw a cup of water at staff, and extremely disruptive on the unit to the point of needing to clear out all of the other patients for safety and milieu management. Security was called, and pt was escorted back to her room. After much discussion she was able to calm down and lay in bed. Ok ADL's, Good meals Addendum: 07/19/16 at 2107 by DANYA MACKAY [facility] Pt slept for approx 2 hrs after med pass and outburst. Pt woke up, pacing the unit, continues to be agitated, irritable and inappropriate. Pt followed a male patient to his room, talking loudly as he was getting into bed and she went into his room whispering in his ear. Became upset and sarcastic toward this movie writer when I asked her to leave his room and reminded her that she should never be in any other pts rooms. Pt continued to pace, and mumble under her breath and glare at staff and other peers. Will continue to observe pt for 15 min checks as directed for safety of pt, staff and peers.
[2016-07-19] MEDS: LORazepam 1 mg Tablet PO SCH (21:00)
--- NOTE | 2016-07-20 05:06 | NUR ---
nursing, nights, 11-7 s- where are the cups ? i know that. hope you like to work. you need to your so fat. i know i'm . that doctor is going to lose his licence. no i don't need anything. o- has appeared to sleep after 2300. up at 0115. asleep after 0330. assessed q 15 minutes. a- inadequate sleep, pressured, labile, demanding and hostile, no apparent distress. p- monitor behavior/emotional state, quality, times and amount of sleep, use and effect of medication. yolanda
[2016-07-20] MEDS: DULoxetine 20 mg DR Capsule PO SCH (08:16)
[2016-07-20] MEDS: Multivit-Miner-Folic Acid-Iron Tablet PO SCH (08:18)
[2016-07-20] MEDS: Magnesium Hydroxide 10 mL Oral Concentration PO PRN (10:08)
--- NOTE | 2016-07-20 12:43 | NUR ---
NURSING DAYS 7-7 S-Patient states "I am xxcking on to you guys I know what you are doing. I am xxcking going to romana you" O-Patient appears very agitated, exhibiting anger outbursts, and being disruptive on unit. Refusing Ativan at this point, upset that Glipizide stopped, BG 149. A-Patient offered PRN Ativan, written materials requested and provided. Patient meet with MD and stormed out of meeting apparently worried about Sunday's court date. Glipizide reordered per pharmacy. P- Court Sunday, LRO, Forestry Fire Aide may order psy medications that patient continues to refuse.
[2016-07-20 13:02] VITALS: BP 134/84; PULSE 74; RESP 18
[2016-07-20] MEDS: diphenhydrAMINE 50 mg Capsule PO PRN ×2 (14:14→20:26)
--- NOTE | 2016-07-20 14:20 | PCM.PNPSY ---
Subjective Date of Service Jul 20, 2016 Subjective I spent 30 minutes both reviewing treatment plan with our clinical team, interviewing the patient and providing supportive/educational psychotherapy. I spent more than 50% of the time counseling the patient. I reviewed the treatment plan with the patient and discussed options available including the potential risks, benefits and side effects. I attempted to describe to her my recommendations about medication and her upcoming bench trial for a [address] medications. She could not tolerate any part of this conversation. She began to escalate rapidly. When I changed the subject and started talking about her emotional pain and some of the stressors but this time she could not be Descalated. Staff however reports continued now overt yahaira with psychotic delusional thoughts. They report she has had significant conflicts with staff and peers over the past 24 hours (highly agitated and delusional). She tends to repeat many of the ways that she feels that her rights are not being respected. Staff reports continued difficulty time with boundaries and mood stability. She slept only 4 hours and has significant irritability and delusional thought. She was sexually provocative w/ staff. She was able to identify her medications and what they were used to treat. She is refusing my requests for a typical neuroleptic and a mood stabilizer. Current Medications Current Medications Levothyroxine Sodium 200 mcg DAILYAC PO Last administered on 07/20/16 08:16; Admin Dose 200 MCG; Start 07/19/16 at 07:30 Metformin HCl 1,000 mg BIDWM PO Last administered on 07/20/16 08:16; Admin Dose 1,000 MG; Start 07/18/16 at 17:30 Mental Status Exam Vital Signs Vital Signs Date Time Temp Pulse Resp B/P Pulse Ox O2 Delivery O2 Flow Rate FiO2 07/20/16 13:02 36.6 74 18 134/84 Appearance: Neat/well groomed Attitude: Guarded, Uncooperative, Hostile/Threatening, Other (alternatives between extremes of calm and organized to bizarre and agitated) Behavior: Distractible, Other (she became quite loud got very close into my face and threatened legal and physical harm in response to mild feedback about behavior over the past 24 hours.) Affect: Labile Mood: Irritable, Dysthymic, Anxious, Fearful Thought Process/Associations: Loose, Tangential, Circumstantial Speech Production: Loud Speech Rate: Pressured Speech Articulation: Normal Thought Content: Negativistic, Somatic preoccupation, Suspicious, Perseveration , Erotomanic Danger to Self/Suicidal Ideati: None Danger to Others: Thoughts/Plans of Harming Others Delusions: Paranoid (Endorses), Somatic (Endorses) Consciousness: Hyper-vigilant Orientation: Person, Place, Date, Situation Memory: Grossly Intact Estimate Intellectual Function: Above Average Basis for IQ estimate: Awareness current events, Word use/vocabulary, Educational history Attention/Concentration & Cogn: Impaired Insight: Limited Judgement: Poor Mental Health Plan The patient is a 56-year-old female with a recent psychiatric hospitalization at the [facility] (admitted 05/01/2016 and discharged on 05/19/2016). The patient had been discharged to [facility], but she had been unable to follow expectations and was demonstrating symptoms of decompensation. On admission, she presented with multiple symptoms of bipolar disorder with psychosis including distractibility, pressured speech, racing thoughts, grandiose and paranoid delusions, increased activity, and poor interpersonal boundaries with impaired judgment and insight. The patient was admitted on a revocation of a less restrictive order following failure to comply with her less restrictive order. She has been tried on a number of medications but stabilized on a combination of aripiprazole 20 mg daily and Depakote 750 mg. The patient has consistently refused Depakote and so has been continued on a combination of lorazepam and aripiprazole. The patient received her first dose of Abilify Maintena 400 mg on April 26, 2016,her second dose on May 26, 2016, and third on June 25, 2016. I attempted to describe to her my recommendations about medication and her upcoming bench trial for a [address] medications. She could not tolerate any part of this conversation. She began to escalate rapidly. When I changed the subject and started talking about her emotional pain and some of the stressors but this time she could not be Descalated. Staff however reports continued now overt yahaira with psychotic delusional thoughts. They report she has had significant conflicts with staff and peers over the past 24 hours (highly agitated and delusional). She tends to repeat many of the ways that she feels that her rights are not being respected. Staff reports continued difficulty time with boundaries and mood stability. She slept only 4 hours and has significant irritability and delusional thought. She was sexually provocative w/ staff. She is very attached to the Cymbalta because she states she is no longer crying. I am concerned that this may be contributing to her yahaira and psychosis. [place] I. Bipolar disorder, manic, with psychotic features, Posttraumatic stress disorder, Polysubstance use disorder, in early remission. [place] II. Deferred. [place] III. Hypertension, Insulin-dependent diabetes mellitus, hypothyroidism, and obesity, recent fall. [place] IV. Unknown. [place] V. Current Global Assessment of Functioning is 25 Medications Abilify Maintena 400 mg IM monthly, 1st given April 26, 2016, last given on 06/25, next due on 07/27/2016. Duloxetine 30mg PO daily Quetiapine 100mg po q4 hour PRN with olanzapine 10 mg IM backup. Lorazepam 1 mg daily and 2mg at bedtime and 1mg twice daily as needed. 2 mg IM backup Diazepam 10 mg nightly when necessary insomnia not addressed by Lunesta Lunesta 3mg po nighty prn insomnia Atorvastatin 40 mg daily. Albuterol metered dose inhaler as needed. Diphenhydramine 50 mg by mouth every 6 hours when necessary itching Glipizide 10 mg twice daily Ibuprofen 800 mg three times a day as needed. Levothyroxine 200 mcg daily. Lisinopril 5 mg daily. Metformin 1000 mg twice daily Methocarbamol 750 mg by mouth 4 times a day when necessary cramping Pantoprazole 40 mg daily. vitamin. Treatments Patient is being provided with a high degree of safety through our unit structure and active adult engagement provided by our mental health professionals, mental health technicians, psychiatric nurses and myself. We are focusing on developing improved coping skills and identifying stressors that may have led to current episode. We will attempt to: * Integrate into therapeutic groups, milieu and individual therapy. * Maintain in a closely monitored and structured unit * Provide low-stimulation environment * Obtain collateral data to assist in treatment planning * Assess degree of lability of affect and impulse control * Complete safety plan * Decrease frequency of relapse and need for re-hospitalization * Establish a consistent sleep pattern * Medication effective in stabilization of mood and/or thought process * Tolerates medication without side effects * Patient will be on the following psychiatric medications: -I will recommend on Sunday that the court that she be placed on a 180 day most restrictive alternative with court ordered medications to include a typical antipsychotic, a mood stabilizer, and a benzodiazepine increased to the point the patient can sleep at least 6-8 hours per night. -Patient currently refusing Abilify Seroquel, only willing to take Cymbalta Lunesta and diazepam. -Scheduled medications: Abilify Maintena 400 mg IM monthly, 1st given April 26, 2016, last given on 06/25, next due on 07/27/2016. Duloxetine 30mg PO daily (If agitation persists may need to discontinue Cymbalta, I will defer this to Dr. Jackman judgment next week) Quetiapine 100mg po q4 hour PRN patient currently refusing Lorazepam 1 mg daily and 2mg at bedtime and 1mg twice daily as needed. 2 mg IM backup Diazepam 10 mg nightly when necessary insomnia not addressed by Lunesta Lunesta 3mg po nighty prn insomnia Education: Educate patient about recreational drug use as an etiology Educate about metabolic etiologies related to obesity Patient's legal status Patient is on a 180 day LR O +30 involuntary treatment hold. She will have a bench trial on Sunday. Anticipated number of hospital days to achieve above goals: Unknown. Patient needs a regular potent antipsychotic and mood stabilizer which at this time she is refusing. Disposition: Patient likely will need long-term treatment at [facility]. Liam Dobbins MD Jul 20, 2016 14:20 Liam Dobbins MD Jul 20, 2016 14:20
--- NOTE | 2016-07-20 15:26 | NUR ---
Fitness Supervisor/Counselor S:" I was only joking when I talked about killing myself." O: Patient stated she never has any SI or HI, nor any auditory or visual hallucinations. She rated her levels of depression and anxiety at 0, and stated that she feels her mood was at "50,000 good". A:She was cooperative, and stated that she didn't really mean the statements she made last night, and that she was only kidding. P: Follow care plan and coordinate with outpatient providers. Monitor erratic behaviors as needed.
--- NOTE | 2016-07-20 18:47 | NUR ---
[facility] Day Shift Pt affect and behavior remain labile, unpredictable. Pt continues to endorse grandiose and paranoid delusions, in addition to ruminating on previous trauma. Pt continues to spend most of the shift attempting to interact with peers and engage in unit activities. Pt remains intrusive with staff and peers, as well as disruptive during group activities. Pt is somewhat redirectable this shift, though she continues to alternate between pleasant and defiant rapidly throughout the shift. Pt attended all group activities with varying degrees of success throughout the shift. Pt attended all meals and ate approx 80% of all meals.
[2016-07-20] MEDS: LORazepam 1 mg Tablet PO SCH (20:24)
--- NOTE | 2016-07-20 21:03 | NUR ---
Nursing Noc [id number] Pt noted to have taken a two hour shower just prior to shift. Pt dressed and came directly to DR. Pt present very labile, unpredictable and grandiose. Pt immediately started staff spliting and targeting of staff. Is noted that patient is being very defiant to staff and attempting to direct other patients into disruptive behavior and to refuse medications. Evening oral diabeties control held r/t patient refusing to eat during the day. Pt noted to be staring at show card writer and speaking inappropriate thoughts about show card writer at this time. CP
[2016-07-20] MEDS: HYDROcodone-APAP 5-325 mg Tablet PO PRN (22:33)
[2016-07-21] MEDS: HYDROcodone-APAP 5-325 mg Tablet PO PRN ×2 (00:05→03:55)
[2016-07-21] MEDS: diphenhydrAMINE 50 mg Capsule PO PRN ×2 (02:33→11:06)
[2016-07-21] MEDS: LORazepam 1 mg Tablet PO SCH ×2 (02:35→20:09)
--- NOTE | 2016-07-21 03:24 | NUR ---
nursing, nights, 11-7 s- you have to help me up. you've seen trevor f==king odell. he gave me allergies. he's going down. i did him and got a disease. whistles down the lam. i entered the witness protection program and joined the . that,s it call security o- has appeared to sleep after 2315. used the call light and received a narco at 0010. will sleep for brief periods of time. assessed q 15 minutes. a- inadequate sleep, labile, hostile, threatening, demanding, sexually inappropriate, no apparent physical distress. p- monitor behavior/emotional state, quality, times and amount of sleep, use and effect of medication. yolanda
[2016-07-21] MEDS: LORazepam 1 mg Tablet PO PRN ×2 (07:27→11:06)
[2016-07-21] MEDS: Multivit-Miner-Folic Acid-Iron Tablet PO SCH (08:14)
[2016-07-21] MEDS: DULoxetine 20 mg DR Capsule PO SCH (08:15)
[2016-07-21] MEDS: Magnesium Hydroxide 10 mL Oral Concentration PO PRN (08:21)
--- NOTE | 2016-07-21 11:04 | PCM.PNPSY ---
Subjective Date of Service Jul 21, 2016 Subjective I spent 30 minutes both reviewing treatment plan with our clinical team, interviewing the patient and providing testimony in court to the commissioner regarding involuntary hold here in the unit and involuntary medication requests. I reviewed the treatment plan with the patient and discussed options available including the potential risks, benefits and side effects in court with patient present.. I attempted to describe my recommendations about medications . She could not tolerate any part of this conversation. She began to escalate rapidly. Staff reports continued now overt yahaira with psychotic delusional thoughts. They report she has had significant conflicts with staff over the past 24 hours (highly agitated and delusional). She tends to repeat the many ways that she feels that her rights are not being respected. Staff reports continued difficulty time with boundaries and mood stability. She slept only 1 hours and has significant irritability and delusional thought. She was sexually provocative w/ staff. She was able to identify her medications and what they were used to treat. She is refusing my requests for a typical neuroleptic and a mood stabilizer. Current Medications Current Medications Glipizide 10 mg BIDWM PO Last administered on 07/21/16t 08:15; Admin Dose 10 MG; Start 07/20/16 at 17:30 Mental Status Exam Appearance: Neat/well groomed Attitude: Guarded, Uncooperative, Hostile/Threatening, Other (alternatives between extremes of calm and organized to bizarre and agitated) Behavior: Distractible, Other (she became quite loud got very close into my face and threatened legal and physical harm in response to mild feedback about behavior over the past 24 hours.) Affect: Labile Mood: Irritable, Dysthymic, Anxious, Fearful Thought Process/Associations: Loose, Tangential, Circumstantial Speech Production: Loud Speech Rate: Pressured Speech Articulation: Normal Thought Content: Negativistic, Somatic preoccupation, Suspicious, Perseveration , Erotomanic Danger to Self/Suicidal Ideati: None Danger to Others: Thoughts/Plans of Harming Others Delusions: Paranoid (Endorses), Somatic (Endorses) Consciousness: Hyper-vigilant Orientation: Person, Place, Date, Situation Memory: Grossly Intact Estimate Intellectual Function: Above Average Basis for IQ estimate: Awareness current events, Word use/vocabulary, Educational history Attention/Concentration & Cogn: Impaired Insight: Limited Judgement: Poor Mental Health Plan The patient is a 56-year-old female with a recent psychiatric hospitalization at the [facility] (admitted 05/01/2016 and discharged on 05/19/2016). The patient had been discharged to [facility], but she had been unable to follow expectations and was demonstrating symptoms of decompensation. On admission, she presented with multiple symptoms of bipolar disorder with psychosis including distractibility, pressured speech, racing thoughts, grandiose and paranoid delusions, increased activity, and poor interpersonal boundaries with impaired judgment and insight. The patient was admitted on a revocation of a less restrictive order following failure to comply with her less restrictive order. She has been tried on a number of medications but stabilized on a combination of aripiprazole 20 mg daily and Depakote 750 mg. The patient has consistently refused Depakote and so has been continued on a combination of lorazepam and aripiprazole. The patient received her first dose of Abilify Maintena 400 mg on April 26, 2016,her second dose on May 26, 2016, and third on June 25, 2016. I attempted to describe to her my recommendations about medication. She could not tolerate any part of this conversation. She began to escalate rapidly. Staff however reports continued now overt yahaira with psychotic delusional thoughts. They report she has had significant conflicts with staff and peers over the past 24 hours (highly agitated and delusional). She tends to repeat many of the ways that she feels that her rights are not being respected. Staff reports continued difficulty time with boundaries and mood stability. She slept only 4 hours and has significant irritability and delusional thought. She was sexually provocative w/ staff. She is very attached to the [facility] because she states she is no longer crying. I am concerned that this may be contributing to her yahaira and psychosis. [place] English I. Bipolar disorder, manic, with psychotic features, Posttraumatic stress disorder, Polysubstance use disorder, in early remission. [place] II. Deferred. [place] III. Hypertension, Insulin-dependent diabetes mellitus, hypothyroidism, and obesity, recent fall. English IV. Unknown. English V. Current Global Assessment of Functioning is 25 Medications Abilify Maintena 400 mg IM monthly, 1st given April 26, 2016, last given on 06/25, next due on 07/27/2016. Duloxetine 30mg PO daily Quetiapine 100mg po q4 hour PRN with olanzapine 10 mg IM backup. Lorazepam 1 mg daily and 2mg at bedtime and 1mg twice daily as needed. 2 mg IM backup Diazepam 10 mg nightly when necessary insomnia not addressed by Lunesta Lunesta 3mg po nighty prn insomnia Atorvastatin 40 mg daily. Albuterol metered dose inhaler as needed. Diphenhydramine 50 mg by mouth every 6 hours when necessary itching Glipizide 10 mg twice daily Ibuprofen 800 mg three times a day as needed. Levothyroxine 200 mcg daily. Lisinopril 5 mg daily. Metformin 1000 mg twice daily Methocarbamol 750 mg by mouth 4 times a day when necessary cramping Pantoprazole 40 mg daily. vitamin. Treatments Patient is being provided with a high degree of safety through our unit structure and active adult engagement provided by our mental health professionals, mental health technicians, psychiatric nurses and myself. We are focusing on developing improved coping skills and identifying stressors that may have led to current episode. We will attempt to: * Integrate into therapeutic groups, milieu and individual therapy. * Maintain in a closely monitored and structured unit * Provide low-stimulation environment * Obtain collateral data to assist in treatment planning * Assess degree of lability of affect and impulse control * Complete safety plan * Decrease frequency of relapse and need for re-hospitalization * Establish a consistent sleep pattern * Medication effective in stabilization of mood and/or thought process * Tolerates medication without side effects * Patient will be on the following psychiatric medications: -I recommended on Sunday that the court that she be placed on a 180 day most restrictive alternative with court ordered medications to include a typical antipsychotic, a mood stabilizer, and a benzodiazepine increased to the point the patient can sleep at least 6-8 hours per night. -Patient currently refusing Abilify Seroquel, only willing to take Cymbalta Lunesta and diazepam. -We have petitioned the court for a medication override bench trial this coming Sunday. -Scheduled medications: Abilify Maintena 400 mg IM monthly, 1st given April 26, 2016, last given on 06/25, next due on 07/27/2016. Duloxetine 30mg PO daily (If agitation persists may need to discontinue Cymbalta, I will defer this to Dr. Jackman judgment next week) Quetiapine 100mg po q4 hour PRN patient currently refusing Lorazepam 1 mg daily and 2mg at bedtime and 1mg twice daily as needed. 2 mg IM backup Diazepam 10 mg nightly when necessary insomnia not addressed by Kinga Donato 3mg po nighty prn insomnia Education: Educate patient about recreational drug use as an etiology Educate about metabolic etiologies related to obesity Patient's legal status Patient is on a 180 day LRO +14 involuntary treatment hold starting 07/21/2016 Anticipated number of hospital days to achieve above goals: Unknown. Patient needs a regular potent antipsychotic and mood stabilizer which at this time she is refusing. Disposition: Patient likely will need long-term treatment at [facility]. Liam Dobbins MD Jul 21, 2016 11:04
[2016-07-21 13:25] VITALS: BP 119/74; PULSE 62; RESP 16
--- NOTE | 2016-07-21 16:37 | NUR ---
Nursing Note Day Shift S: "I feel fine thank you " O: Pt had court this morning, she has another 14 day MR. She had a very long court session. A: Pt had very little sleep last night, pt asked for Ativan X3 doses for anxiety today. Pt rated anxiety at a 8/10 earlier in the day. Pt denies any SI or HI. Pt states that after she took a nap that she felt much better and felt like her anxiety was down to a 3 or 4/10. Pt has been taking her meds today. P: Follow plan of care, monitor behaviors. Monitor for side effects
--- NOTE | 2016-07-21 18:08 | NUR ---
[facility] Day Shift Pt affect and behavior unchanged from previous shifts, remains labile and unpredictable. Pt continues to endorse grandiose and paranoid delusions, in addition to ruminating on previous trauma. Pt continues to spend most of the shift attempting to interact with peers and engage in unit activities. Pt remains intrusive with staff and peers, as well as disruptive during group activities. Pt is somewhat redirectable this shift, though she continues to alternate between pleasant and defiant rapidly throughout the shift. Pt attended all group activities with varying degrees of success throughout the shift. Pt attended all meals and ate approx 80% of all meals.
--- NOTE | 2016-07-21 18:11 | NUR ---
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 Patient denies S/I and H/I. She also denies auditory and visual hallucinations. She did not rate depression and anxiety. A: Patient is uncooperative, guarded, hostile, distactible, labile, irritable, anxious, fearful, tangential, suspicious, erotomanic, paranoid, hyper-vigilant, limited insight, poor judgment. P: Follow care plan, coordinate with out-patient providers, monitor behavior.
[2016-07-22] MEDS: LORazepam 1 mg Tablet PO PRN ×2 (01:01→18:26)
[2016-07-22] MEDS: HYDROcodone-APAP 5-325 mg Tablet PO PRN ×3 (01:02→19:34)
--- NOTE | 2016-07-22 05:03 | NUR ---
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 Pleasant, calm and cooperative. Took HS meds without issue. Requested home med Lunesta for sleep which is kept in pharmacy. T/C to pharmacy who informed this technical document writer that she has run out. Informed pt. who asked if staff would loan her the money and go bead picker a new prescription of from the her pharmacy. Informed pt. that would not be possible however her need would be passed onto case management. Pt given prn Ativan, Roboxin, [place] and Valium for sleep, anxiety and pain during the night with moderate relief. (See MAR for details) Pt awake intermittently throughout the night. Monitored pt. for safety, location and accountability
[2016-07-22] MEDS: Multivit-Miner-Folic Acid-Iron Tablet PO SCH (08:06)
[2016-07-22] MEDS: DULoxetine 20 mg DR Capsule PO SCH (08:06)
--- NOTE | 2016-07-22 11:17 | NUR ---
Day shift nursing note S/O-"I do not want to see the doctor today...I am mad at him...my teeth hurt and I want to see a dentist." Pt. was encouraged to take shower to relax. She requested and was given Motrin 800 mg. PO for muscle pain rated at 10/10 at 0952. 30 min. later she stated her muscle pain was lower but her tooth pain was 10/10. She requested and was given [place] 5-325, 2 tabs PO at 1046. 30 min. later she stated her pain was lower. Pt. stated she slept well last night. She has a good appetite. She can be redirected. A-Hypervigilant. Denies hallucinations, anxiety and depression. Limited insight and judgment. P-Monitor for safety per protocol. Assess efficacy of meds to manage hypomanic symptoms. Encourage better coping skills.
[2016-07-22] MEDS: Lidocaine 2% 5 mL Topical Jelly MUC_MEMBRM PRN (13:39)
--- NOTE | 2016-07-22 15:42 | PCM.PNPSY ---
Subjective Date of Service Jul 22, 2016 Subjective "I am not talking to you Janette, you lied and her oath just like Dr. Dobbins." "I don't want to talk to you." Patient had reported to staff that she was having some dental complaints and on questioning stated, "I need a dentist now. I need a female. I need to go in an ambulance." Patient reports having saved a crown in her room and declined to have it placed in patient belongings. We discussed using topical lidocaine for pain control and patient agreed to try this medication. She otherwise was hostile and refused to speak to this film writer. She was noted by staff to be labile and unpredictable with grandiose and paranoid delusions and ruminating on previous trauma. The patient remains intrusive with staff and peers, as well as disruptive during group activities per report. Sleep: 5+ hours Appetite: Eating Current Medications Current Medications Glipizide 10 mg BIDWM PO Last administered on 07/22/16 08:06; Admin Dose 10 MG ; Start 07/20/16 at 17:30 Lidocaine HCl 1 ml Q4H PRN [id number] Last administered on 07/22/16 13:39; Admin Dose 1 ML; Start 07/22/16 at 10:55 Mental Status Exam Appearance: Neat/well groomed Attitude: Guarded, Uncooperative, Hostile/Threatening Behavior: Distractible, Other (patient angry and trembling refusing to speak with this film writer other than as noted above) Affect: Labile Mood: Irritable, Dysthymic, Anxious, Fearful Thought Process/Associations: Loose, Tangential, Circumstantial Speech Production: Loud Speech Rate: Pressured Speech Articulation: Normal Thought Content: Negativistic, Somatic preoccupation, Suspicious, Perseveration , Erotomanic Danger to Self/Suicidal Ideati: None Danger to Others: Thoughts/Plans of Harming Others (threatening lawsuits) Delusions: Paranoid (Endorses), Somatic (Endorses) Consciousness: Hyper-vigilant Orientation: Person, Place, Date, Situation Memory: Grossly Intact Estimate Intellectual Function: Above Average Basis for IQ estimate: Awareness current events, Word use/vocabulary, Educational history Attention/Concentration & Cogn: Impaired Insight: Limited Judgement: Poor Mental Health Plan The patient is a 56-year-old female with [facility] and discharged on 05/19/2016). The patient had been discharged to [facility], but she had been unable to follow expectations and was demonstrating symptoms of decompensation. On admission, she presented with multiple symptoms of bipolar disorder with psychosis including distractibility, pressured speech, racing thoughts, grandiose and paranoid delusions, increased activity, and poor interpersonal boundaries with impaired judgment and insight. The patient was admitted on a revocation of a less restrictive order following failure to comply with her less restrictive order. She has been tried on a number of medications but stabilized on a combination of aripiprazole 20 mg daily and Depakote 750 mg. The patient has consistently refused Depakote and so has been continued on a combination of lorazepam and aripiprazole. The patient received her first dose of Abilify Maintena 400 mg on April 26, 2016,her second dose on May 26, 2016, and third on June 25, 2016. Patient continues to be delusional and has refused oral supplementary aripiprazole. The patient continues to report "allergies" to medications due to weight gain and is refusing to take them. She has consistently refused Depakote for this reason. She is additionally refusing Trileptal as she has tried it in the past and is also "allergic" to it. She lists quetiapine and olanzapine in this same category but reluctantly took quetiapine but has subsequently declined this medication. She states that she is allergic to Zyprexa however she has no signs of allergic reaction to the medication and has received it several times without incident (although the patient reports her cracked hands are a side effect of all of these medications, rather than her constant cleaning). The patient stopped taking supplemental aripiprazole oral medication, stating that her blood level was too high. She also stated that she will no longer take the long-acting aripiprazole. Her aripiprazole level was 130 ng/mL with a therapeutic range typically an 150-300 ng/mL and typical lowest level of side effects between 110-249 ng/mL. The patient has been quite agitated and delusional since receiving paperwork that they compelled medication hearing has been scheduled. As the patient is on a 180 day order, the court order is required for ongoing involuntary treatment. Again today, the patient let loose a torrent of threats and delusional material. A medication hearing for 07/26/2016 has been set. If the patient continues to be agitated and threatening, will discontinue duloxetine tomorrow. [place] I. Bipolar disorder, manic, with psychotic features, Posttraumatic stress disorder, Polysubstance use disorder, in early remission. [place] II. Deferred. [place] III. Hypertension, Insulin-dependent diabetes mellitus, hypothyroidism, and obesity, recent fall. [place] IV. Unknown. [place] V. Current Global Assessment of Functioning is 25 Medications Abilify Maintena 400 mg IM monthly, 1st given April 26, 2016, last given on 06/25, next due on 07/27/2016. Quetiapine 100mg po q4 hour PRN Duloxetine 40mg PO daily Lorazepam 1 mg daily and 2mg at bedtime and 1-2mg q4hrs as needed. Diazepam 10 mg nightly when necessary insomnia not addressed by Lunesta Lunesta 3mg po nighty prn insomnia (patient out awaiting funds from [facility] for outpatient supply) Atorvastatin 40 mg daily. Albuterol metered dose inhaler as needed. Diphenhydramine 50 mg by mouth every 6 hours when necessary itching Glipizide 10 mg twice daily Ibuprofen 800 mg three times a day as needed. Levothyroxine 200 mcg daily. Metformin 1000 mg twice daily Methocarbamol 750 mg by mouth 4 times a day when necessary cramping Pantoprazole 40 mg daily. vitamin. Treatments 1. The patient is admitted to the inpatient unit and will be provided a safe and secure environment on about her we will R work were admitted. 2. The patient is denying current active suicidality and is not in need of a one-to-one at this time. 3. The patient is encouraged to participate with group and milieu activities. 4. The patient will be seen by the treatment team on a daily basis to assess symptoms, side effects and response to treatment. 5. The patient will be continued on her current medications and we have been encouraging addition of Depakote and Klonopin. Patient currently refusing. Risperidone previously caused agitation. Olanzapine appears to be of little effect. Haldol and lithium may be options. 6. Prolactin level drawn due to report of and prolonged use of antipsychotics, was found to be low, patient may warrant outpatient mammogram. If symptoms worsen consider ultrasound. 7. Requesting modification of order to compel medications on an ongoing basis. 8. Patient is on a 180 day LRO +14 involuntary treatment hold starting 2016 with involuntary medication hearing 07/26/2016 9. Should medication order be successful and patient would not comply, we will need to pursue revocation. 10. If agitation persists will discontinue Cymbalta. 11. Reorder atorvastatin and pantoprazole. 12. Hold lisinopril as vital signs normal. Restart 5 mg daily if hypertension returns. Jez Stephens MD Jul 22, 2016 15:42 -Patient currently refusing Abilify Seroquel, only willing to take Cymbalta Lunesta and diazepam. -We have petitioned the court for a medication override bench trial this coming Sunday. -Scheduled medications: Abilify Maintena 400 mg IM monthly, 1st given April 26, 2016, last given on 06/25, next due on 07/27/2016. Duloxetine 30mg PO daily (If agitation persists may need to discontinue Cymbalta, I will defer this to Dr. Jackman judgment next week) Quetiapine 100mg po q4 hour PRN patient currently refusing Lorazepam 1 mg daily and 2mg at bedtime and 1mg twice daily as needed. 2 mg IM backup Diazepam 10 mg nightly when necessary insomnia not addressed by Lunesta Lunesta 3mg po nighty prn insomnia Education: Educate patient about recreational drug use as an etiology Educate about metabolic etiologies related to obesity Patient's legal status Patient is on a 180 day LRO +14 involuntary treatment hold starting 07/21/2016 Anticipated number of hospital days to achieve above goals: Unknown. Patient needs a regular potent antipsychotic and mood stabilizer which at this time she is refusing. Disposition: Patient likely will need long-term treatment at [facility]. Jez Stephens MD Jul 22, 2016 15:42
[2016-07-22] MEDS: LORazepam 1 mg Tablet PO SCH ×2 (16:24→21:35)
--- NOTE | 2016-07-22 16:49 | NUR ---
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 She stated that her depression and anxiety levels are at a 0. She made good eye contact. A:She was cooperative, but erratic. She was tangential, and needed to be redirected. She was expecting a visit from her daughter. Patient joined in for the last 15 minutes of the 2nd group. P: Follow care plan and coordinate with outpatient providers. Monitor erratic behaviors as needed.
--- NOTE | 2016-07-22 18:30 | NUR ---
Nurses Note evening "Why haven't we gone outside, I monitor myself! This place is a half-way send me to [facility]." Patient remains easily agitated, has been hostile,demanding and belligerent. Patient was visited by her daughter which initially went well but patient began to escalate towards the end of the visit. Patient accepted an Ativan 2 mg at 1840 with encouragement. Will continue to assess medication response,redirect and limit set inappropriate outbursts and behaviors. Addendum: 07/22/16 at 1849 by SUZETTE VALDES RN Amended: Links added.
[2016-07-23] MEDS: HYDROcodone-APAP 5-325 mg Tablet PO PRN ×2 (03:38→19:55)
[2016-07-23] MEDS: LORazepam 1 mg Tablet PO PRN ×4 (03:39→19:53)
[2016-07-23] MEDS: diphenhydrAMINE 50 mg Capsule PO PRN (03:39)
--- NOTE | 2016-07-23 05:50 | NUR ---
Nursing notes: cook night Patient noted to be sleeping at start of shift. Patient awake at 0300 and out to dining room for snack. Patient social and care taking of elderly female peer. Patient continues to perseverate about lawsuits against the hospital. Patient then complaining of anxiety and generalized pain, receiving multiple prn medications as she requested. Patient returned to bed, appears to be sleeping until awake early am at 0545.
[2016-07-23 07:57] VITALS: BP 159/90; PULSE 62; RESP 18
[2016-07-23] MEDS: Magnesium Hydroxide 10 mL Oral Concentration PO PRN (08:15)
[2016-07-23] MEDS: DULoxetine 20 mg DR Capsule PO SCH (08:16)
[2016-07-23] MEDS: Multivit-Miner-Folic Acid-Iron Tablet PO SCH (08:16)
[2016-07-23] MEDS: Pantoprazole 40 mg ER24 Tablet PO SCH (08:17)
--- NOTE | 2016-07-23 14:04 | PCM.PNPSY ---
Subjective Date of Service Jul 23, 2016 Subjective The patient is angry and hostile today again perseverating on "lying in Court, saying I have bipolar, saying I need constant supervision, saying I am psychotic." The patient continued to endorse that she was " and if you give me something that is going to hurt the baby I will romana your ass!" The patient is now reporting that she is "allergic to Abilify." The patient had requested a renewal of Lunesta 3 mg nightly as needed for insomnia. Informed patient that the refill could be called him but someone would have to pay for it and bring it in. Patient then began talking about having her team of certified meeting professional "romana you for everything you got." Patient demanded to know "why you increased my cholesterol medication?" Informed patient that 3 medications were not renewed last week and was simply restarted. Patient agreeable. Attempted to explain to patient that she is subtherapeutic on aripiprazole but patient terminated the interview. "Check, check, check. We're done now. I am done talking with you." Following our meeting she later approach saying she was allergic to Seroquel, Zyprexa, Haldol, lithium, Depakote, and all that." Sleep: 5.5 hours "excellent" Appetite: Good Suicidal and homicidal ideation: Denies Auditory hallucinations: Denies Visual hallucinations: Denies Other Psychotic Symptoms: See above. Anxiety: 0/10 Depression: "Fine" Current Medications Current Medications Atorvastatin Calcium 40 mg HS PO Last administered on 07/22/16 21:36; Admin Dose 40 MG; Start 07/22/16 at 21:00 Lidocaine HCl 1 ml Q4H PRN [id number] Last administered on 07/22/16 13:39; Admin Dose 1 ML; Start 07/22/16 at 10:55 Pantoprazole 40 mg DAILYAC PO Last administered on 07/23/16 08:17; Admin Dose 40 MG; Start 07/23/16 at 07:30 Mental Status Exam Appearance: Neat/well groomed Attitude: Guarded, Uncooperative, Hostile/Threatening Behavior: Distractible, Other (patient angry and trembling though less than yesterday) Affect: Labile Mood: Irritable, Dysthymic, Anxious Thought Process/Associations: Loose, Tangential Speech Production: Loud (somewhat) Speech Rate: Pressured (somewhat) Speech Articulation: Normal Thought Content: Negativistic, Somatic preoccupation, Suspicious, Perseveration , Erotomanic Danger to Self/Suicidal Ideati: None Danger to Others: Thoughts/Plans of Harming Others (threatening lawsuits) Delusions: Paranoid (Endorses), Somatic (Endorses) Hallucinations: Auditory (Denies), Visual (Denies) Consciousness: Hyper-vigilant Orientation: Person, Place, Date, Situation Memory: Grossly Intact Estimate Intellectual Function: Above Average Basis for IQ estimate: Awareness current events, Word use/vocabulary, Educational history Attention/Concentration & Cogn: Impaired Insight: Limited Judgement: Poor Mental Health Plan The patient is a 56-year-old female with a recent psychiatric hospitalization at the [facility] (admitted 05/01/2016 and discharged on 05/19/2016). The patient had been discharged to [facility], but she had been unable to follow expectations and was demonstrating symptoms of decompensation. On admission, she presented with multiple symptoms of bipolar disorder with psychosis including distractibility, pressured speech, racing thoughts, grandiose and paranoid delusions, increased activity, and poor interpersonal boundaries with impaired judgment and insight. The patient was admitted on a revocation of a less restrictive order following failure to comply with her less restrictive order. She has been tried on a number of medications but stabilized on a combination of aripiprazole 20 mg daily and Depakote 750 mg. The patient has consistently refused Depakote and so has been continued on a combination of lorazepam and aripiprazole. The patient received her first dose of Abilify Maintena 400 mg on April 26, 2016,her second dose on May 26, 2016, and third on June 25, 2016. Patient continues to be delusional and has refused oral supplementary aripiprazole. The patient continues to report "allergies" to medications due to weight gain and is refusing to take them. She has consistently refused Depakote for this reason. She is additionally refusing Trileptal as she has tried it in the past and is also "allergic" to it. She lists quetiapine and olanzapine in this same category but reluctantly took quetiapine but has subsequently declined this medication. She states that she is allergic to Zyprexa however she has no signs of allergic reaction to the medication and has received it several times without incident (although the patient reports her cracked hands are a side effect of all of these medications, rather than her constant cleaning). The patient stopped taking supplemental aripiprazole oral medication, stating that her blood level was too high. She also stated that she will no longer take the long-acting aripiprazole. Her aripiprazole level was 130 ng/mL with a therapeutic range typically an 150-300 ng/mL and typical lowest level of side effects between 110-249 ng/mL. The patient has been quite agitated and delusional since receiving paperwork that a compelled medication hearing has been scheduled. As the patient is on a 180 day order, the court order is required for ongoing involuntary treatment. Although agreeing to talk to this proposal manager writer, she was still delusional and threatening as noted above and is now reporting she is allergic to aripiprazole although clearly this is not the case. A medication hearing for 07/26/2016 has been set. If the patient continues to be agitated and threatening, will discontinue or reduce duloxetine. She appears somewhat more cooperative today and so we will hold off on any changes for now as this may be providing some decrease in irritability. A refill will be called in for the [place] to her local pharmacy [place]. Bipolar disorder, manic, with psychotic features, Posttraumatic stress disorder, Polysubstance use disorder, in early remission. [place] II. Deferred. [place] III. Hypertension, Insulin-dependent diabetes mellitus, hypothyroidism, and obesity, recent fall. [place] IV. Unknown. [place] V. Current Global Assessment of Functioning is 25 Medications Adam Maintena 400 mg IM monthly, 1st given April 26, 2016, last given on 06/25, next due on 07/27/2016. Quetiapine 100mg po q4 hour PRN Duloxetine 40mg PO daily Lorazepam 1 mg daily and 2mg at bedtime and 1-2mg q4hrs as needed. Diazepam 10 mg nightly when necessary insomnia not addressed by [place] 3mg po nighty prn insomnia (patient out awaiting funds from [employer] for outpatient supply) Atorvastatin 40 mg daily. Albuterol metered dose inhaler as needed. Diphenhydramine 50 mg by mouth every 6 hours when necessary itching Glipizide 10 mg twice daily Ibuprofen 800 mg three times a day as needed. Levothyroxine 200 mcg daily. Lisinopril 5 mg daily Metformin 1000 mg twice daily Methocarbamol 750 mg by mouth 4 times a day when necessary cramping Pantoprazole 40 mg daily. vitamin. Treatments 1. The patient is admitted to the inpatient unit and will be provided a safe and secure environment on about her we will R work were admitted. 2. The patient is denying current active suicidality and is not in need of a one-to-one at this time. 3. The patient is encouraged to participate with group and milieu activities. 4. The patient will be seen by the treatment team on a daily basis to assess symptoms, side effects and response to treatment. 5. The patient will be continued on her current medications and we have been encouraging addition of Depakote and Klonopin. Patient currently refusing. Risperidone previously caused agitation. Olanzapine appears to be of little effect. Haldol and lithium may be options. 6. Prolactin level drawn due to report of and prolonged use of antipsychotics, was found to be low, patient may warrant outpatient mammogram. If symptoms worsen consider ultrasound. 7. Requesting modification of order to compel medications on an ongoing basis. 8. Patient is on a 180 day LRO +14 involuntary treatment hold starting 2016 with involuntary medication hearing 07/26/2016 9. Should medication order be successful and patient would not comply, we will need to pursue revocation. 10. If agitation persists will discontinue or reduce Cymbalta. 11. Reorder lisinopril as BP mildly elevated today. Jez Stephens MD Jul 23, 2016 14:04
--- NOTE | 2016-07-23 14:30 | NUR ---
Day shift note Pt has been generally cooperative and appropriate, but becomes agitated when speaking with MD or staff about issues involving her stay here. Pt has been working on getting new medication from outside pharmacy and plan now in place for pt's daughter to go to [facility] pharmacy with pt debit card, pay for prescription and come back to care unit to bring back meds and visit pt. Pt appears happy with this plan. Pt has requested PRN anxiety medication which she reports helps her. In particular pt gets agitated when speaking to MD. Care continues.
--- NOTE | 2016-07-23 20:08 | NUR ---
PRN medication Pt had an emotional visit with her daughter and had been tearful. She requested prn medication for her anxiety, pain and sleep. She stated "I need medication so I can go to bed early". Pt received 2 [place] tabs po & Robaxin 750mg po for knee/hip pain rated 9/10. She also received Ativan 2 mg po for anxiety. Diazepam 10mg po for insomnia. She requested receiving her Lunesta at 10pm in case she can't remain fall asleep. Addendum: 07/23/16 at 2134 by AMY GREEN RN Pt has remained awake but calm. She requested and received her Lunesta tab po prn for sleep 2133. She reports her pain level is "fine".
--- NOTE | 2016-07-23 21:03 | NUR ---
Observations 0900 to 0 Pt affect and mood remains the same as previous shifts. intrusive, labile and manipulative. Pt speech was good. Pt eye contact was good but intense at times. Pt maintained behavior throughout the shift and did not have any outburts this shift that this technical publications writer seen. Pt attended meals in D.R. and ate approximately 75% of her meals. Pt has poor boundaries with staff and peers a few times. Pt requires occasional staff redirection. Pt went out on patio with staff and peers to get some fresh air and enjoy the sunshine. Pt attended community meeting and set a daily goal. Pt rated her mood a 5/10, on a scale of 1 to 10, with 10 being the best. Pt stated that shes trying to stay positive. Pt visited with her daughter and it appeared to go well. Pt was observed every 15 minutes throughout the shift as ordered.
[2016-07-23] MEDS: LORazepam 1 mg Tablet PO SCH (21:32)
[2016-07-24] MEDS: diphenhydrAMINE 50 mg Capsule PO PRN (02:53)
[2016-07-24] MEDS: LORazepam 1 mg Tablet PO PRN ×2 (02:53→12:28)
[2016-07-24] MEDS: HYDROcodone-APAP 5-325 mg Tablet PO PRN ×3 (02:54→22:38)
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
[2016-07-24] MEDS: DULoxetine 20 mg DR Capsule PO SCH (07:47)
[2016-07-24] MEDS: Pantoprazole 40 mg ER24 Tablet PO SCH (07:47)
[2016-07-24] MEDS: Multivit-Miner-Folic Acid-Iron Tablet PO SCH (07:51)
[2016-07-24 08:11] VITALS: BP 138/94; PULSE 73; RESP 18
[2016-07-24] MEDS: Magnesium Hydroxide 10 mL Oral Concentration PO PRN (08:12)
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
--- NOTE | 2016-07-24 16:40 | NUR ---
manager house/Counselor S:"I believe in the savior, my lord gregory humphrey." O: Patient has no SI or HI, no AH or VH, and rated her levels of depression & anxiety at 0. She participated in 1 group for about 20min. Patient slept for 4.5 hours. A: Patient was informed that her father had passed, so she napped for part of the day. She was cooperative but sad, and stated that she was trying to figure out her emotions. She was mildly manic, but subdued due to the news. P: Follow care plan and coordinate with outpatient providers.
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
[2016-07-24] MEDS: LUNESTA 1 MG PO PRN (22:31)
[2016-07-24] MEDS: LORazepam 1 mg Tablet PO SCH (22:39)
[2016-07-25] MEDS: diphenhydrAMINE 50 mg Capsule PO PRN ×2 (02:06→23:29)
[2016-07-25] MEDS: LORazepam 1 mg Tablet PO PRN ×3 (02:06→13:12)
--- NOTE | 2016-07-25 06:41 | NUR ---
Nursing Note Income Auditor 11pm to 0700am Pt awake intermittently throughout the night, easily agitated by peers who were pacing the hallways at night and reportedly keeping her up. Pt received the following prn medications, i.e Ativan 1 mg, valium 10mg, [place] 1 tab, Benadryl 50mg and Robaxin 750mg between 2230 and 0230. She slept a total of 2.5 hours. Monitored pt. for safety location and accountability.
[2016-07-25] MEDS: Pantoprazole 40 mg ER24 Tablet PO SCH (07:38)
[2016-07-25] MEDS: DULoxetine 20 mg DR Capsule PO SCH (07:39)
[2016-07-25] MEDS: Multivit-Miner-Folic Acid-Iron Tablet PO SCH (07:39)
--- NOTE | 2016-07-25 14:54 | PCM.PNPSY ---
Subjective Date of Service Jul 25, 2016 Subjective The patient reports today, "I don't need anything from you. I have a new doctor coming." When asked who this individual was the patient responded "that is my business." When asked when it would be arriving she stated, "in a few days." The patient denied any problems except for ongoing dental pain. She reports that the lidocaine jelly is not effective and she has been using it 10 times per day; however, review of MAR indicates the patient used the medication one time on 07/22/2016. Encourage patient to use lidocaine jelly. No signs of swelling or redness over her face. The patient reportedly indicated that she does not want to take Depakote because she is . Sleep: 2.5 hours per staff. 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 Anxiety/Depression: None reported Mental Status Exam Appearance: Neat/well groomed Attitude: Guarded, Uncooperative Behavior: Distractible Affect: Labile Mood: Irritable, Dysthymic, Anxious Thought Process/Associations: Goal Directed Speech Production: Paucity Speech Rate: Lags/Latency Speech Articulation: Normal Thought Content: Negativistic, Somatic preoccupation, Suspicious, Perseveration Danger to Self/Suicidal Ideati: None Danger to Others: None Delusions: Paranoid (Endorses), Somatic (Endorses) Consciousness: Hyper-vigilant Orientation: Person, Place, Date, Situation Memory: Grossly Intact Estimate Intellectual Function: Above Average Basis for IQ estimate: Awareness current events, Word use/vocabulary, Educational history Attention/Concentration & Cogn: Impaired Insight: Limited Judgement: Poor Mental Health Plan The patient is a 56-year-old female with a recent psychiatric hospitalization at the [facility] (admitted 05/01/2016 and discharged on 05/19/2016). The patient had been discharged to [facility], but she had been unable to follow expectations and was demonstrating symptoms of decompensation. On admission, she presented with multiple symptoms of bipolar disorder with psychosis including distractibility, pressured speech, racing thoughts, grandiose and paranoid delusions, increased activity, and poor interpersonal boundaries with impaired judgment and insight. The patient was admitted on a revocation of a less restrictive order following failure to comply with her less restrictive order. She has been tried on a number of medications but stabilized on a combination of aripiprazole 20 mg daily and Depakote 750 mg. The patient has consistently refused Depakote and so has been continued on a combination of lorazepam and aripiprazole. The patient received her first dose of Abilify Maintena 400 mg on April 26, 2016,her second dose on May 26, 2016, and third on June 25, 2016. Patient continues to be delusional and has refused oral supplementary aripiprazole. The patient continues to report "allergies" to medications due to weight gain and is refusing to take them. She has consistently refused Depakote for this reason. She is additionally refusing Trileptal as she has tried it in the past and is also "allergic" to it. She lists quetiapine and olanzapine in this same category but reluctantly took quetiapine but has subsequently declined this medication. She states that she is allergic to Zyprexa however she has no signs of allergic reaction to the medication and has received it several times without incident (although the patient reports her cracked hands are a side effect of all of these medications, rather than her constant cleaning). The patient stopped taking supplemental aripiprazole oral medication, stating that her blood level was too high. She also stated that she will no longer take the long-acting aripiprazole. Her aripiprazole level was 130 ng/mL with a therapeutic range typically an 150-300 ng/mL and typical lowest level of side effects between 110-249 ng/mL. The patient has been quite agitated and delusional since receiving paperwork that a compelled medication hearing has been scheduled. As the patient is on a 180 day order, the court order is required for ongoing involuntary treatment. The patient received an extension today to allow for an outside expert. She was overall calm her today but dismissive with this singer songwriter indicating that she has an outside doctor coming to see her. She also indicated that she needed to see a dentist and have a female officer to escort her however she has only used one dose of the lidocaine jelly. [place] I. Bipolar disorder, manic, with psychotic features, Posttraumatic stress disorder, Polysubstance use disorder, in early remission. [place] II. Deferred. [place] III. Hypertension, Insulin-dependent diabetes mellitus, hypothyroidism, and obesity, recent fall. [place] IV. Unknown. [place] V. Current Global Assessment of Functioning is 30 Medications Adam Maintena 400 mg IM monthly, 1st given April 26, 2016, last given on 06/25, next due on 07/27/2016. Quetiapine 100mg po q4 hour PRN Duloxetine 40mg PO daily Lorazepam 1 mg daily and 2mg at bedtime and 1-2mg q4hrs as needed. Diazepam 10 mg nightly when necessary insomnia not addressed by Lunesta Lunesta 3mg po nighty prn insomnia (patient out awaiting funds from [facility] for outpatient supply) Atorvastatin 40 mg daily. Albuterol metered dose inhaler as needed. Diphenhydramine 50 mg by mouth every 6 hours when necessary itching Glipizide 10 mg twice daily Ibuprofen 800 mg three times a day as needed. Levothyroxine 200 mcg daily. Lisinopril 5 mg daily Metformin 1000 mg twice daily Methocarbamol 750 mg by mouth 4 times a day when necessary cramping Pantoprazole 40 mg daily. vitamin. Treatments 1. The patient is admitted to the inpatient unit and will be provided a safe and secure environment on about her we will R work were admitted. 2. The patient is denying current active suicidality and is not in need of a one-to-one at this time. 3. The patient is encouraged to participate with group and milieu activities. 4. The patient will be seen by the treatment team on a daily basis to assess symptoms, side effects and response to treatment. 5. The patient will be continued on her current medications and we have been encouraging addition of Depakote and Klonopin. Patient currently refusing. Risperidone previously caused agitation. Olanzapine appears to be of little effect. Haldol and lithium may be options. 6. Prolactin level drawn due to report of and prolonged use of antipsychotics, was found to be low, patient may warrant outpatient mammogram. If symptoms worsen consider ultrasound. 7. Requesting modification of order to compel medications on an ongoing basis. 8. Patient is on a 180 day LRO +14 involuntary treatment hold starting 2016 with involuntary medication hearing 08/02/2016 9. Should medication order be successful and patient would not comply, we will need to pursue revocation. 10. If agitation persists will discontinue or reduce Cymbalta. 11. As there is no objective sign of side effects in the past and patient has responded well to Depakote in the past, will prescribe 1000 mg nightly as patient's paranoia appears to be worsening. 12. Patient is encouraged to use lidocaine jelly for dental pain. Jez Stephens MD Jul 25, 2016 14:54
--- NOTE | 2016-07-25 15:43 | NUR ---
S:" I'm always great!" O: Patient denies any SI or HI, no anxiety or depression, and no auditory or visual hallucinations. Patient slept for 2.5 hours. A: Patient was tangential and manic. She was cooperative and pleasant, and out and about in the milieu for some of the day. P: Follow care plan and coordinate with outpatient providers.
[2016-07-25] MEDS: HYDROcodone-APAP 5-325 mg Tablet PO PRN ×2 (16:27→23:30)
--- NOTE | 2016-07-25 17:35 | NUR ---
Nursin to 1900 S: I'm and the medication will harm my baby. O: Malu expressed nervousness as she entered the courtroom. She had requested and received Ativan one mg before the court process. Asked for and received another Ativan 1 mg at 1320. At the end of the court session, Malu showed court members her collage and began to talk in a pressured, incessant manner. She was escorted out of the room, still talking, by racebook writer. A: Remains delusional about . P: Assess pt as she is offered mood stabilizer medication tomnorrow. Addendum: 07/25/16 at 1744 by RENITA HARTMANN RN Amended: Links added.
[2016-07-25 17:48] VITALS: BP 123/84; PULSE 67; RESP 19
--- NOTE | 2016-07-25 18:06 | NUR ---
Observations [id number] Pt more isolative today, spending time in room and on patio. Pt attended court, became increasingly agitated after court, making statements such as "they are liars" and "Things are going on around here....my business should be my business." Pt very paranoid regarding court and plan for discharge. Pt attended all meals, eating 100%. Visited with daughter in the evening. Pt was observed every 15 minutes of shift as directed.
[2016-07-25] MEDS: LORazepam 1 mg Tablet PO SCH (23:28)
[2016-07-25] MEDS: LUNESTA 1 MG PO PRN (23:34)
[2016-07-26] MEDS: LORazepam 1 mg Tablet PO PRN ×4 (01:16→18:42)
[2016-07-26] MEDS: HYDROcodone-APAP 5-325 mg Tablet PO PRN ×4 (01:17→20:28)
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
[2016-07-26] MEDS: diphenhydrAMINE 50 mg Capsule PO PRN (06:34)
[2016-07-26] MEDS: Pantoprazole 40 mg ER24 Tablet PO SCH (08:17)
[2016-07-26] MEDS: Divalproex (QD) 500 mg ER24 Tablet PO SCH ×2 (08:30→08:35)
[2016-07-26] MEDS: Multivit-Miner-Folic Acid-Iron Tablet PO SCH (08:35)
[2016-07-26] MEDS: DULoxetine 20 mg DR Capsule PO SCH (08:35)
[2016-07-26] MEDS: Alum-Mag Hydrox-Simeth 30 mL Suspension PO PRN ×2 (09:23→09:25)
[2016-07-26] MEDS: Lidocaine 2% 5 mL Topical Jelly MUC_MEMBRM PRN (10:27)
--- NOTE | 2016-07-26 12:15 | NUR ---
nursing note: Pt has been fairly congenial this shift, helpful/intrusive, and hyperverbal. Delusions and paranoia continues: She refused her am Depakote;" I'm not taking it b/c I'm . I just finished a short 2-day period, only 2 pads, and that's what I did last time I was . They keep telling me I'm not but they want to take it...the doctors are being paid off but I have a team of battery loader in [place] who will handle all this..." Is currently meeting with Teresa mata Her am BG was 127 PRNs Hydrocodone and Ativan and lidocaine gel @ 1030 per her request for generalized and tooth/gum pain, and anxiety, "so I can take a nap," which she kept saying she was going to do but has not yet(1230);
--- NOTE | 2016-07-26 16:01 | PCM.PNPSY ---
Subjective Date of Service Jul 26, 2016 Subjective The patient declined Depakote last night. She states that the Depakote will "kill me" and that she has "severe side effects from Depakote and Seroquel and will not take them." The patient also reported ongoing dental pain but has not been using topical agent. A number of her teeth are significantly decayed or fractured however on physical examination there is no clear sign of infection or inflammation. The patient would like to see a dentist or surgeon inpatient. The patient had expressed a concern about Depakote and her "" and was offered to be able to use the pictures of her uterus however she declined stating, "my doctors have already seen them." She would not state who these other individuals were. Sleep: "Real good" Appetite: "Good" Suicidal and homicidal ideation: Denies Auditory hallucinations: Denies Visual hallucinations: Denies Other Psychotic Symptoms: See above. Anxiety/Depression: "About these medications" Current Medications Current Medications Patient Own Medication 1 ea HS PRN PO Last administered on 07/25/16t 23:34; Admin Dose 1 EA; Start 07/25/16 at 01:55 Mental Status Exam Appearance: Neat/well groomed Attitude: Guarded, Uncooperative Behavior: Distractible Affect: Labile Mood: Irritable, Dysthymic, Anxious Thought Process/Associations: Goal Directed Speech Production: Normal Speech Rate: Normal Speech Articulation: Normal Thought Content: Negativistic, Somatic preoccupation, Suspicious, Perseveration Danger to Self/Suicidal Ideati: None Danger to Others: None Delusions: Paranoid (Endorses), Somatic (Endorses) Hallucinations: Auditory (Denies), Visual (Denies) Consciousness: Hyper-vigilant Orientation: Person, Place, Date, Situation Memory: Grossly Intact Estimate Intellectual Function: Above Average Basis for IQ estimate: Awareness current events, Word use/vocabulary, Educational history Attention/Concentration & Cogn: Impaired Insight: Limited Judgement: Poor Mental Health Plan The patient is a 56-year-old female with a recent psychiatric hospitalization at the [facility] (admitted 05/01/2016 and discharged on 05/19/2016). The patient had been discharged to [facility], but she had been unable to follow expectations and was demonstrating symptoms of decompensation. On admission, she presented with multiple symptoms of bipolar disorder with psychosis including distractibility, pressured speech, racing thoughts, grandiose and paranoid delusions, increased activity, and poor interpersonal boundaries with impaired judgment and insight. The patient was admitted on a revocation of a less restrictive order following failure to comply with her less restrictive order. She has been tried on a number of medications but stabilized on a combination of aripiprazole 20 mg daily and Depakote 750 mg. The patient has consistently refused Depakote and so has been continued on a combination of lorazepam and aripiprazole. The patient received her first dose of Abilify Maintena 400 mg on April 26, 2016,her second dose on May 26, 2016, and third on June 25, 2016. Patient continues to be delusional and has refused oral supplementary aripiprazole. The patient continues to report "allergies" to medications due to weight gain and is refusing to take them. She has consistently refused Depakote for this reason. She is additionally refusing Trileptal as she has tried it in the past and is also "allergic" to it. She lists quetiapine and olanzapine in this same category but reluctantly took quetiapine but has subsequently declined this medication. She states that she is allergic to Zyprexa however she has no signs of allergic reaction to the medication and has received it several times without incident (although the patient reports her cracked hands are a side effect of all of these medications, rather than her constant cleaning). The patient stopped taking supplemental aripiprazole oral medication, stating that her blood level was too high. She also stated that she will no longer take the long-acting aripiprazole. Her aripiprazole level was 130 ng/mL with a therapeutic range typically an 150-300 ng/mL and typical lowest level of side effects between 110-249 ng/mL. The patient has been quite agitated and delusional since receiving paperwork that a compelled medication hearing has been scheduled. As the patient is on a 180 day order, the court order is required for ongoing involuntary treatment. The patient received an extension to allow for an outside expert. The patient was calm or with this inspector automatic typewriter but still quite delusional and refusing Depakote. The patient is in need of dental care but there is no acute infection. There is no oral surgeon on staff. There is no dentist on staff. Risk management has been contacted about possibly getting the patient to an outside dentist. They will be following up. [place] I. Bipolar disorder, manic, with psychotic features, Posttraumatic stress disorder, Polysubstance use disorder, in early remission. [place] II. Deferred. [place] III. Hypertension, Insulin-dependent diabetes mellitus, hypothyroidism, and obesity, recent fall. [place] IV. Unknown. [place] V. Current Global Assessment of Functioning is 30 Medications Abilify Maintena 400 mg IM monthly, 1st given April 26, 2016, last given on 06/25, next due on 07/27/2016. Quetiapine 100mg po q4 hour PRN Duloxetine 40mg PO daily Lorazepam 1 mg daily and 2mg at bedtime and 1-2mg q4hrs as needed. Diazepam 10 mg nightly when necessary insomnia not addressed by Lunesta Lunesta 3mg po nighty prn insomnia (patient out awaiting funds from [facility] for outpatient supply) Atorvastatin 40 mg daily. Albuterol metered dose inhaler as needed. Diphenhydramine 50 mg by mouth every 6 hours when necessary itching Glipizide 10 mg twice daily Ibuprofen 800 mg three times a day as needed. Levothyroxine 200 mcg daily. Lisinopril 5 mg daily Metformin 1000 mg twice daily Methocarbamol 750 mg by mouth 4 times a day when necessary cramping Pantoprazole 40 mg daily. vitamin. Treatments 1. The patient is admitted to the inpatient unit and will be provided a safe and secure environment on about her we will R work were admitted. 2. The patient is denying current active suicidality and is not in need of a one-to-one at this time. 3. The patient is encouraged to participate with group and milieu activities. 4. The patient will be seen by the treatment team on a daily basis to assess symptoms, side effects and response to treatment. 5. The patient will be continued on her current medications and we have been encouraging addition of Depakote and Klonopin. Patient currently refusing. Risperidone previously caused agitation. Olanzapine appears to be of little effect. Haldol and lithium may be options. 6. Prolactin level drawn due to report of and prolonged use of antipsychotics, was found to be low, patient may warrant outpatient mammogram. If symptoms worsen consider ultrasound. 7. Requesting modification of order to compel medications on an ongoing basis. 8. Patient is on a 180 day LRO +14 involuntary treatment hold starting 2016 with involuntary medication hearing 08/02/2016 9. Should medication order be successful and patient would not comply, we will need to pursue revocation. 10. If agitation persists will discontinue or reduce Cymbalta. 11. As there is no objective sign of side effects in the past and patient has responded well to Depakote in the past, will prescribe 1000 mg nightly as patient's paranoia appears to be worsening. 12. Patient is encouraged to use lidocaine jelly for dental pain. 13. Await follow-up from risk management about outside dental appointment. Jez Stephens MD Jul 26, 2016 16:01
--- NOTE | 2016-07-26 19:21 | NUR ---
air operations manager/Counselor: S: "My teeth are falling out." O: Patient stated that she slept "real good" last night. Patient denies S/I and H/I. She also denies auditory and visual hallucinations. Patient stated that she is depressed "about theses medicines that will kill this baby inside me." She did not rate anxiety. A: Patient is uncooperative, distactible, guarded, labile, irritable, anxious, dysthymic, paranoid, hyper-vigilant, limited insight, poor judgment. P: Follow care plan, coordinate with out-patient providers, monitor behavior.
[2016-07-26] MEDS: LORazepam 1 mg Tablet PO SCH (20:28)
[2016-07-26] MEDS: LUNESTA 1 MG PO PRN (20:56)
[2016-07-26 22:28] VITALS: BP 152/85; PULSE 80; RESP 16
[2016-07-27] MEDS: HYDROcodone-APAP 5-325 mg Tablet PO PRN ×2 (02:17→16:45)
[2016-07-27] MEDS: LORazepam 1 mg Tablet PO PRN (02:18)
--- NOTE | 2016-07-27 04:44 | NUR ---
nursing, nights, 11-7 s- how's my handsome security support analyst. i'm tired of this hell hole. i'll own this place after my director of golf are done. o- has appeared to sleep after 2245. up to the toilet at 0200. asleep at 0245. up at 0415 alternating between being supportive and bossy to the other patients and staff. assessed q 15 minutes. a- interrupted/inadequate sleep, labile and intrusive, no apparent physical distress. p- monitor behavior/emotional state, quality, times and amount of sleep, use and effect of medication. yolanda
[2016-07-27] MEDS: Divalproex (QD) 500 mg ER24 Tablet PO SCH (08:30)
[2016-07-27] MEDS: Pantoprazole 40 mg ER24 Tablet PO SCH (08:42)
[2016-07-27] MEDS: Multivit-Miner-Folic Acid-Iron Tablet PO SCH (08:42)
[2016-07-27] MEDS: DULoxetine 20 mg DR Capsule PO SCH (08:43)
--- NOTE | 2016-07-27 08:59 | NUR ---
Pt refused Depakote, she got very angry and states that its "bad for her baby", she started cussing and swearing that shes allergic to the medication and that shes going to get her grain mill worker in [place] and "romana the F*&k out of the doctor" that shes going to "romana the F%&k out of the hospital " she went on to say the doctor knows " I am allergic to Depakote" and went on to say she broke out with blisters when she took it before.
[2016-07-27 09:14] VITALS: BP 147/81; PULSE 72; RESP 18
[2016-07-27] MEDS: ARIPiprazole ER 400 mg Inj IM ONE (11:35)
--- NOTE | 2016-07-27 15:49 | NUR ---
Pt refused Adam PADRON Pt states " I'm , they are F&*KED"
--- NOTE | 2016-07-27 18:36 | NUR ---
phlebotomy manager/Counselor: S: "Yee is graduating today." O: Patient only slept 4.5 last night. Patient denies S/I and H/I. She also denies auditory and visual hallucinations. She did not rate depression and anxiety. Patient's daughter, Yee, is graduating from college today and patient will watch the graduation on youtube A: Patient is uncooperative, distactible, guarded, labile, irritable, anxious, dysthymic, paranoid, hyper-vigilant, limited insight, poor judgment. P: Follow care plan, coordinate with out-patient providers, monitor behavior.
[2016-07-27] MEDS: LORazepam 1 mg Tablet PO SCH (20:43)
[2016-07-27] MEDS: LUNESTA 1 MG PO PRN (20:44)
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
--- NOTE | 2016-07-27 22:02 | PCM.PNPSY ---
Subjective Date of Service Jul 27, 2016 Subjective The patient is angry with this science writer this morning. Patient states, "I gave you that vest. It doesn't go with your shoes. You should be wearing black shoes not brown." Patient asks, "Why are you giving me Depakote? You know I have terrible side effects. I will romana you for malpractice. It will make my baby retarded and I'll take you to the [place] [facility] [place]." Patient declined offered Abimichelle Bolivar. Angry about chairs being "dirty" as she had not cleaned them herself. Patient seen by GRINDER BRAKE LINING, initially resistive, but eventually allowed examination of mouth. Sleep: 5.75 Appetite: eating meals. Suicidal and homicidal ideation: none reported Auditory hallucinations: none reported Visual hallucinations: none reported Other Psychotic Symptoms: Pseudocyesis delusion as above. Mental Status Exam Appearance: Neat/well groomed Attitude: Guarded, Uncooperative, Hostile/Threatening (Angry, trembling.) Behavior: Distractible Affect: Labile Mood: Irritable, Dysthymic, Anxious Thought Process/Associations: Goal Directed Speech Production: Normal Speech Rate: Normal Speech Articulation: Other (angry tone) Thought Content: Negativistic, Somatic preoccupation, Suspicious, Perseveration Danger to Self/Suicidal Ideati: None Danger to Others: None Delusions: Paranoid (Endorses), Somatic (Endorses) Consciousness: Hyper-vigilant Orientation: Person, Place, Date, Situation Memory: Grossly Intact Estimate Intellectual Function: Above Average Basis for IQ estimate: Awareness current events, Word use/vocabulary, Educational history Attention/Concentration & Cogn: Impaired Insight: Limited Judgement: Poor Mental Health Plan The patient is a 56-year-old female with a recent psychiatric hospitalization at the [facility] (admitted 05/01/2016 and discharged on 05/19/2016). The patient had been discharged to [facility], but she had been unable to follow expectations and was demonstrating symptoms of decompensation. On admission, she presented with multiple symptoms of bipolar disorder with psychosis including distractibility, pressured speech, racing thoughts, grandiose and paranoid delusions, increased activity, and poor interpersonal boundaries with impaired judgment and insight. The patient was admitted on a revocation of a less restrictive order following failure to comply with her less restrictive order. She has been tried on a number of medications but stabilized on a combination of aripiprazole 20 mg daily and Depakote 750 mg. The patient has consistently refused Depakote and so has been continued on a combination of lorazepam and aripiprazole. The patient received her first dose of Abilify Maintena 400 mg on April 26, 2016,her second dose on May 26, 2016, and third on June 25, 2016. Patient continues to be delusional and has refused oral supplementary aripiprazole. The patient continues to report "allergies" to medications due to weight gain and is refusing to take them. She has consistently refused Depakote for this reason. She is additionally refusing Trileptal as she has tried it in the past and is also "allergic" to it. She lists quetiapine and olanzapine in this same category but reluctantly took quetiapine but has subsequently declined this medication. She states that she is allergic to Zyprexa however she has no signs of allergic reaction to the medication and has received it several times without incident (although the patient reports her cracked hands are a side effect of all of these medications, rather than her constant cleaning). The patient stopped taking supplemental aripiprazole oral medication, stating that her blood level was too high. She also stated that she will no longer take the long-acting aripiprazole. Her aripiprazole level was 130 ng/mL with a therapeutic range typically an 150-300 ng/mL and typical lowest level of side effects between 110-249 ng/mL. The patient has been quite agitated and delusional since receiving paperwork that a compelled medication hearing has been scheduled. As the patient is on a 180 day order, the court order is required for ongoing involuntary treatment. The patient received an extension to allow for an outside expert. Patient angry with staff, refusing Abilify Maintena today. Angry and irritable most of day, threw wet floor sign down lam. GRINDER BRAKE LINING investigating whether dental services can be arranged in house (from [facility]) as patient too labile at this point for outside appointment. Will offer aripiprazole oral tomorrow as refusing Maintena. [place] I. Bipolar disorder, manic, with psychotic features, Posttraumatic stress disorder, Polysubstance use disorder, in early remission. [place] II. Deferred. [place] III. Hypertension, Insulin-dependent diabetes mellitus, hypothyroidism, and obesity, recent fall. [place] IV. Unknown. [place] V. Current Global Assessment of Functioning is 30 Medications Abilify Maintena 400 mg IM monthly, 1st given April 26, 2016, last given on 06/25, next due on 07/27/2016, declined Quetiapine 100mg po q4 hour PRN Duloxetine 20mg PO daily Lorazepam 1 mg daily and 2mg at bedtime and 1-2mg q4hrs as needed. Diazepam 10 mg nightly when necessary insomnia not addressed by Lunesta Lunesta 1mg po nighty prn insomnia Atorvastatin 40 mg daily. Albuterol metered dose inhaler as needed. Diphenhydramine 50 mg by mouth every 6 hours when necessary itching Glipizide 10 mg twice daily Ibuprofen 800 mg three times a day as needed. Levothyroxine 200 mcg daily. Lisinopril 5 mg daily Metformin 1000 mg twice daily Methocarbamol 750 mg by mouth 4 times a day when necessary cramping Pantoprazole 40 mg daily. vitamin. Treatments 1. The patient is admitted to the inpatient unit and will be provided a safe and secure environment on about her we will R work were admitted. 2. The patient is denying current active suicidality and is not in need of a one-to-one at this time. 3. The patient is encouraged to participate with group and milieu activities. 4. The patient will be seen by the treatment team on a daily basis to assess symptoms, side effects and response to treatment. 5. The patient will be continued on her current medications and we have been encouraging addition of Depakote and Klonopin. Patient currently refusing. Risperidone previously caused agitation. Olanzapine appears to be of little effect. Haldol and lithium may be options, but again patient declining.. 6. Prolactin level drawn due to report of and prolonged use of antipsychotics, was found to be low, patient may warrant outpatient mammogram. If symptoms worsen consider ultrasound. 7. Requesting modification of order to compel medications on an ongoing basis. 8. Patient is on a 180 day LRO +14 involuntary treatment hold starting 2016 with involuntary medication hearing 08/02/2016 9. Should medication order be successful and patient would not comply, we will need to pursue revocation. 10. Will reduce duloxetine to 20mg due to refusal of Abilify Maintena and increasing agitation. 11. As there is no objective sign of side effects in the past and patient has responded well to Depakote in the past, will prescribe 1000 mg nightly as patient's paranoia appears to be worsening. 12. Patient is encouraged to use lidocaine jelly for dental pain. 13. Await follow-up from risk management/GRINDER BRAKE LINING regarding dental appointment. 14. As refusing Abilify Maintena, will start oral 10mg daily. Jez Stephens MD Jul 27, 2016 22:02
--- NOTE | 2016-07-28 00:41 | NUR ---
nursing, nights, 11-7 s- your in [facility]. you better move your ass. do as i say jermainejason. [singing the national anthem] get off your ass and get me a pain pill. now. o- came to staff at 2330. striped in room and insisted on the door being open. came to staff partially clothed at 0025. resistant to direction. has appeared to sleep after 0130 during q 15 minute assessments. a- interrupted sleep, demanding, hostile and threatening at times, partially clothed, no apparent physical distress. p- monitor behavior/emotional state, quality, times and amount of sleep, use and effect of medication. yolanda Addendum: 07/28/16 at 0141 by NIALL PORTILLO RN rang call light to complain about another patient at 0140. yolanda Addendum: 07/28/16 at 0204 by NIALL PORTILLO RN 199 i need seroquel. no i need more then that. i need to sleep. yolanda Addendum: 07/28/16 at 0303 by NIALL PORTILLO RN 254 up and intrusive with another patient. demanded staff perform tasks before patient would compile with staff direction. yolanda Addendum: 07/28/16 at 0331 by NIALL PORTILLO RN 324 that troll back there. she won't give me what i want that bitch. it's not enough i want more. Addendum: 07/28/16 at 0411 by NIALL PORTILLO RN 0350 you have diseases. i'll yell if i want too. everyone needs to know. your going to get it you hear me. your going down you bastard. you'll see. Addendum: 07/28/16 at 0534 by NIALL PORTILLO RN 0530 responded well to staff explanation of behavioral expectations to preclude going into seclusion due to antagonizing another patient. returned to her room and has remained lying quietly in bed. assessed q 15 minutes. yolanda
[2016-07-28] MEDS: HYDROcodone-APAP 5-325 mg Tablet PO PRN ×3 (00:42→21:33)
[2016-07-28] MEDS: diphenhydrAMINE 50 mg Capsule PO PRN ×2 (00:42→23:11)
[2016-07-28] MEDS: LORazepam 1 mg Tablet PO PRN ×4 (00:44→23:11)
[2016-07-28] MEDS: Pantoprazole 40 mg ER24 Tablet PO SCH (08:11)
[2016-07-28] MEDS: Multivit-Miner-Folic Acid-Iron Tablet PO SCH (08:11)
[2016-07-28] MEDS: ARIPiprazole 10 mg Tablet PO SCH (08:14)
[2016-07-28] MEDS: Divalproex (QD) 500 mg ER24 Tablet PO SCH ×2 (08:14→08:19)
[2016-07-28] MEDS: DULoxetine 20 mg DR Capsule PO SCH (08:14)
[2016-07-28] MEDS: Magnesium Hydroxide 10 mL Oral Concentration PO PRN (09:48)
[2016-07-28 13:24] VITALS: BP 129/76; PULSE 79; RESP 18
--- NOTE | 2016-07-28 18:04 | NUR ---
Nursing Notes [id number] S: "I need a test-can you buy me one-a really good one, the ones here at the hospital have been contaminated and the results are inaccurate". "The doctors and my defending state's attorney are such liars-I am so upset with them all today". "I just need to stay busy and forget that conversation so I can have a better day". O: Patient requesting Lorazepam twice this shift for anxiety. Patient Rt knee visible swollen, Ice/elevation and ibuprofen given. Reports anxiety 11/21, depression 05/22, denies SI/HI or hallucinations. A: Pressured, agitated, delusional. P: Monitor for safety and response to treatment. Follow plan of care. Addendum: 07/28/16 at 1810 by BONG CUBA RN PRN's MOM 10 ML @ 0948. Effective. Ativan 2 mg po @ 1009 for anxiety 10/10. Effective , anxiety reduced t 8/10. Motrin 800 mg po @ 1245 for knee pain 10/10. Minimally effective, pain reduced to 8/10. [place] 2 tabs @ 1412 for knee pain 8/10. Effective, pain reduced to 2/10. Ativan 2 mg po for anxiety 8/10 @ 1456. Effective, anxiety reduced to 3/10.
--- NOTE | 2016-07-28 18:35 | NUR ---
[facility] Day Shift Pt affect and behavior unchanged from previous shifts, remains labile and unpredictable. Pt continues to endorse grandiose and paranoid delusions, in addition to ruminating on previous trauma. Pt continues to spend most of the shift attempting to interact with peers and engage in unit activities. Pt remains intrusive with staff and peers, as well as disruptive during group activities. Pt is generally redirectable this shift. Pt attended community meeting in the AM and all group activities with varying degrees of success throughout the shift. Pt attended all meals and ate approx 80% of all meals.
--- NOTE | 2016-07-28 20:22 | NUR ---
workforce management manager/Counselor: S: "I'm sunbathing." O: Patient only slept 1 last night. Patient denies S/I and H/I. She also denies auditory and visual hallucinations. Depression is 0/10 but "I miss my children and grandchildren" and anxiety "when I meet with the doctor." A: Patient is uncooperative, distactible, guarded, labile, irritable, anxious, dysthymic, paranoid, hyper-vigilant, limited insight, poor judgment. P: Follow care plan, coordinate with out-patient providers, monitor behavior.
--- NOTE | 2016-07-28 20:51 | PCM.PNPSY ---
Subjective Date of Service Jul 28, 2016 Subjective Patient is seen with the counselor and is on the deck, suntanning in sports bra and exercise shorts. "I'm not decent, turn around." Patient goes on to berate this financial underwriter, "you're a crooked doctor.. My anxiety is through the roof. It wasn 't through the roof until you got here. Why don't you pop some Zyprexa, see how you like it" Patient is pleasant and almost saccharine to the counselor. Patient reports that she will only take 10mg of aripiprazole "nothing more." No other complaints. Sleep: slept 1 hour per staff Appetite: good Suicidal and homicidal ideation: denies "I believe in Juan Miguel Ash..." Auditory hallucinations: denies Visual hallucinations: denies Other Psychotic Symptoms: still focused on with staff, but not this financial underwriter. Anxiety: as above Depression: "I just miss my children" Current Medications Current Medications Aripiprazole 10 mg DAILY PO Last administered on 07/28/16 08:14; Admin Dose 10 MG; Start 07/28/16 at 08:30 Duloxetine HCl 20 mg DAILY PO Last administered on 07/28/16 08:14; Admin Dose 20 MG; Start 07/28/16 at 08:30 Mental Status Exam Vital Signs Vital Signs Date Time Temp Pulse Resp B/P Pulse Ox O2 Delivery O2 Flow Rate FiO2 07/28/16 13:24 36.5 79 18 129/76 Appearance: Other (wearing sports bra and shorts, suntanning) Attitude: Cooperative (marginally), Guarded, Hostile/Threatening Behavior: Other (as above) Affect: Labile Mood: Irritable, Dysthymic, Anxious Thought Process/Associations: Goal Directed Speech Production: Normal Speech Rate: Normal Speech Articulation: Other (angry tone) Thought Content: Negativistic, Somatic preoccupation, Suspicious, Perseveration Danger to Self/Suicidal Ideati: None Danger to Others: None Delusions: Paranoid (Endorses), Somatic (Endorses) Consciousness: Hyper-vigilant Orientation: Person, Place, Date, Situation Memory: Grossly Intact Estimate Intellectual Function: Above Average Basis for IQ estimate: Awareness current events, Word use/vocabulary, Educational history Attention/Concentration & Cogn: Impaired Insight: Limited Judgement: Poor Mental Health Plan The patient is a 56-year-old female with a recent psychiatric hospitalization at the [facility] (admitted 05/01/2016 and discharged on 05/19/2016). The patient had been discharged to [facility], but she had been unable to follow expectations and was demonstrating symptoms of decompensation. On admission, she presented with multiple symptoms of bipolar disorder with psychosis including distractibility, pressured speech, racing thoughts, grandiose and paranoid delusions, increased activity, and poor interpersonal boundaries with impaired judgment and insight. The patient was admitted on a revocation of a less restrictive order following failure to comply with her less restrictive order. She has been tried on a number of medications but stabilized on a combination of aripiprazole 20 mg daily and Depakote 750 mg. The patient has consistently refused Depakote and so has been continued on a combination of lorazepam and aripiprazole. The patient received her first dose of Abilify Maintena 400 mg on April 26, 2016,her second dose on May 26, 2016, and third on June 25, 2016. Patient continues to be delusional but since refusing Abilify Maintena now reports she will take oral aripiprazole but only 10mg. The patient continues to report "allergies" to other medications due to weight gain and is refusing to take them. She has consistently refused Depakote for this reason. She has also refused, Trileptal, quetiapine, olanzapine, haloperidol, lithium and others for similar reasons. The patient has reported a number of physical ailments such as cracked hands which she reports are a side effect of all of medications, rather than her constant cleaning. Her aripiprazole level was 130 ng/mL with a therapeutic range typically an 150-300 ng/mL and typical lowest level of side effects between 110-249 ng/mL. The patient has been quite agitated and delusional since receiving paperwork that a compelled medication hearing has been scheduled and has been generally hostile to this financial underwriter. As the patient is on a 180 day order, the court order is required for ongoing involuntary treatment. The patient received an extension to allow for an outside expert. Patient initially declined a release to Dr. Graf, but finally signed RODNEY. Discussed case with Dr. rGaf on 07/27/16. Will offer aripiprazole oral tomorrow as refusing Maintena. Received outside records from [facility] from where she was admitted on a revocation of a LRO on 06/19/2000 after stopping her medication, began acting bizarrely, frightening her and children. She also had charges after driving a car across a neighbors lawn and harassing police officers allegedly at their homes. She was diagnosed with Schizophrenia, Chronic paranoid type and was admitted on quetiapine 600mg and levothyroxine 0.175mg. She was tried on olanzapine as she had been prescribed this on a previous admission but had not been effective, was discontinued and changed to risperidone 6mg with quetiapine.600mg. She was noted to be uncooperative with medication, but not assaultive and did not require seclusion or restraint. [place] Martell I. Bipolar disorder, manic, with psychotic features, Posttraumatic stress disorder, Polysubstance use disorder, in early remission. [place] II. Deferred. [place] III. Hypertension, Insulin-dependent diabetes mellitus, hypothyroidism, and obesity, recent fall. [place] IV. Unknown. [place] V. Current Global Assessment of Functioning is 30 Medications Abilify Maintena 400 mg IM monthly, 1st given April 26, 2016, last given on 06/25, next due on 07/27/2016, declined Aripiprazole 10mg daily Quetiapine 100mg po q4 hour PRN Duloxetine 20mg PO daily Lorazepam 1 mg daily and 2mg at bedtime and 1-2mg q4hrs as needed. Diazepam 10 mg nightly when necessary insomnia not addressed by Lunesta Lunesta 1mg po nighty prn insomnia Atorvastatin 40 mg daily. Albuterol metered dose inhaler as needed. Diphenhydramine 50 mg by mouth every 6 hours when necessary itching Glipizide 10 mg twice daily Ibuprofen 800 mg three times a day as needed. Levothyroxine 200 mcg daily. Lisinopril 5 mg daily Metformin 1000 mg twice daily Methocarbamol 750 mg by mouth 4 times a day when necessary cramping Pantoprazole 40 mg daily. vitamin. Treatments 1. The patient is admitted to the inpatient unit and will be provided a safe and secure environment on about her we will R work were admitted. 2. The patient is denying current active suicidality and is not in need of a one-to-one at this time. 3. The patient is encouraged to participate with group and milieu activities. 4. The patient will be seen by the treatment team on a daily basis to assess symptoms, side effects and response to treatment. 5. The patient will be continued on her current medications and we have been encouraging addition of Depakote and Klonopin. Patient currently refusing. Risperidone previously caused agitation. Olanzapine appears to be of little effect. Haldol and lithium may be options, but again patient declining. 6. Prolactin level drawn due to report of and prolonged use of antipsychotics, was found to be low, patient may warrant outpatient mammogram. If symptoms worsen consider ultrasound. 7. Requesting modification of order to compel medications on an ongoing basis. 8. Patient is on a 180 day LRO +14 involuntary treatment hold starting 2016 with involuntary medication hearing 08/02/2016 9. Should medication order be successful and patient would not comply, we will need to pursue revocation. 10. Will reduce duloxetine to 20mg due to refusal of Abilify Maintena and increasing agitation. 11. As there is no objective sign of side effects in the past and patient has responded well to Depakote in the past, will prescribe 1000 mg nightly as patient's paranoia appears to be worsening. 12. Patient is encouraged to use lidocaine jelly for dental pain. 13. Await follow-up from risk management/SUEDING MACHINE TENDER regarding dental appointment. 14. As refusing Abilify Maintena, will start oral 10mg daily. would increase to 15mg in next few days as patient was already subtherapeutic on Abilify Maintena. 15. Inocencia will assist Dr. Graf at 930am on Sunday to have access to EMR. Jez Stephens MD Jul 28, 2016 20:51
[2016-07-28] MEDS: LORazepam 1 mg Tablet PO SCH (21:29)
[2016-07-28] MEDS: LUNESTA 1 MG PO PRN (21:44)
--- NOTE | 2016-07-29 03:53 | NUR ---
Nursing Noc Pt appears to be maintaining behavior control to the point that she is not villainously trying to pick arguments or wake other patients up. Mood remains hypomanic, paranoid and labile. Appears to be sleeping better tonight. Continues to refuse some prescribed medications. Using PRNs to assist with sleep. Continuing to monitor mood behavior and emotional state. Q15 minute safety checks as ordered.
[2016-07-29] MEDS: HYDROcodone-APAP 5-325 mg Tablet PO PRN ×2 (06:44→21:20)
[2016-07-29] MEDS: DULoxetine 20 mg DR Capsule PO SCH (08:09)
[2016-07-29] MEDS: Multivit-Miner-Folic Acid-Iron Tablet PO SCH (08:10)
[2016-07-29] MEDS: Pantoprazole 40 mg ER24 Tablet PO SCH (08:11)
[2016-07-29] MEDS: ARIPiprazole 10 mg Tablet PO SCH (08:19)
[2016-07-29] MEDS: Divalproex (QD) 500 mg ER24 Tablet PO SCH ×2 (08:20→08:25)
[2016-07-29] MEDS: LORazepam 1 mg Tablet PO PRN ×2 (11:47→23:43)
--- NOTE | 2016-07-29 12:00 | NUR ---
Observations 0700 to 1900 Pt affect and mood remains the same as previous shifts. intrusive, labile and manipulative. Pt speech was rapid, rambling and pressured. Pt eye contact was very intense at times. Pt attended meals in D.R. and ate 75-100% of her meals. Pt has poor boundaries with staff. Pt requires frequent staff redirection. Pt attended community meeting and set a daily goal. Pt rated her mood a 10/10, on a scale of 1 to 10, with 10 being the best. Pt was looking in the room and eavesdropping when doctor was trying to talk with other patients, this happened three times. This radio news writer was talking to pt on the patio and asked her to please not look in the rooms when doctor was talking to other patients. Pt started to escalate and loudly said "everyone is lying to me, its the doctors fault I'm still her, they are lying to me and switching tests just so the state can keep my baby" Pt continued yelling at staff "I want to go to [facility] [place], I cant take it her anymore, they treat me better there" "I will just stay in my room and in bed, I will not eat anything until I get out of here" "take me back to fing seclusion" Pt was unable to be redirected and continued to yell very loud and was posturing towards this radio news writer. Pt walked/stomped through milieu yelling and cussing as staff walked her back to seclusion (see nurses note) Pt was observed every 15 minutes throughout the shift as ordered.
--- NOTE | 2016-07-29 12:03 | PCM.PNPSY ---
Subjective Date of Service Jul 29, 2016 Subjective I spent 30 minutes both reviewing treatment plan with our clinical team, but was unable to interview the patient due to extreme agitation yahaira and paranoia. I attempted to describe my recommendations about medications . She could not tolerate any part of this conversation. She began to escalate rapidly. She postured in an aggressive manner with me and with another mental health assistant service manager. She intruded on 3 of my other patient interviews today and refused to follow redirections. She was placed in seclusion and was offered by mouth Zyprexa and Ativan. I wrote an order for either by mouth or IM due to imminent risk of physical harm. Staff reports continued yahaira with psychotic delusional thoughts over the past 8 hours. She has had significant conflicts with staff over the past 8 hours ( highly agitated and delusional). She tends to repeat the many ways that she feels that her rights are not being respected. Staff reports continued difficulty time with boundaries and mood stability. She slept only 3.5 hours and has significant irritability and delusional thought. She was sexually provocative w/ staff. She was able to identify her medications and what they were used to treat. She is refusing my requests for a neuroleptic and a mood stabilizer. Current Medications Current Medications Aripiprazole 10 mg DAILY PO Last administered on 07/29/16 08:19; Admin Dose 10 MG; Start 07/28/16 at 08:30 Duloxetine HCl 20 mg DAILY PO Last administered on 07/29/16 08:09; Admin Dose 20 MG; Start 07/28/16 at 08:30 Mental Status Exam Appearance: Neat/well groomed Attitude: Guarded, Hostile/Threatening Behavior: Other (as above) Affect: Labile Mood: Irritable, Dysthymic, Anxious Thought Process/Associations: Tangential Speech Production: Paucity Speech Rate: Pressured Speech Articulation: Other (angry tone) Thought Content: Negativistic, Somatic preoccupation, Suspicious, Perseveration Delusions: Paranoid (Endorses), Grandiose (Endorses), Somatic (Endorses) Consciousness: Hyper-vigilant Orientation: Unable to assess Memory: Untestable Estimate Intellectual Function: Unable to assess Basis for IQ estimate: Word use/vocabulary Attention/Concentration & Cogn: Impaired Insight: Limited Judgement: Poor Mental Health Plan The patient is a 56-year-old female with a recent psychiatric hospitalization at the [facility] (admitted 05/01/2016 and discharged on 05/19/2016). The patient had been discharged to [facility], but she had been unable to follow expectations and was demonstrating symptoms of decompensation. On admission, she presented with multiple symptoms of bipolar disorder with psychosis including distractibility, pressured speech, racing thoughts, grandiose and paranoid delusions, increased activity, and poor interpersonal boundaries with impaired judgment and insight. The patient was admitted on a revocation of a less restrictive order following failure to comply with her less restrictive order. She has been tried on a number of medications but stabilized on a combination of aripiprazole 20 mg daily and Depakote 750 mg. The patient has consistently refused Depakote and so has been continued on a combination of lorazepam and aripiprazole. The patient received her first dose of Abilify Maintena 400 mg on April 26, 2016,her second dose on May 26, 2016, and third on June 25, 2016. She refused her third dose scheduled for 2016. Since that time she has been increasingly agitated and paranoid. She is having increasing symptoms of both yahaira and psychosis with paranoia and intrusive behaviors. Today she intruded on 3 of my sessions with other patients. She postured in an aggressive manner and staff had to intervene. She refused to follow my redirections. She refused to follow staff redirections and postured in an aggressive manner with one of our MHA's. She will force had to be called and patient was taken back to the seclusion room. She continued to yell and threaten and refused to follow staff redirection. I was concerned about potential violent behaviors and ordered a 1 time dose of 10 mg Zyprexa and 2 mg of Ativan to be offered initially by mouth but IM if patient refuses. I attempted to describe to her my recommendations about medication. She could not tolerate any part of this conversation. She began to escalate rapidly. Staff however reports continued now overt yahaira with psychotic delusional thoughts. They report she has had significant conflicts with staff and peers over the past 8 hours (highly agitated and delusional). She tends to repeat many of the ways that she feels that her rights are not being respected. Staff reports continued difficulty time with boundaries and mood stability. She slept only 3.5 hours and has significant irritability and delusional thought. She was sexually provocative w/ staff (DANETTE Alex and Callum Gold). [place] I. Bipolar disorder, manic, with psychotic features, Posttraumatic stress disorder, Polysubstance use disorder, in early remission. [place] II. Deferred. [place] III. Hypertension, Insulin-dependent diabetes mellitus, hypothyroidism, and obesity, recent fall. [place] IV. Unknown. [place] V. Current Global Assessment of Functioning is 25 Medications Abilify Maintena 400 mg IM monthly, 1st given April 26, 2016, last given on 06/25, next due on 07/26/2016, declined Aripiprazole 10mg daily Depakote ER 1000 mg daily, declined Discontinue Duloxetine 20mg PO daily due to increased yahaira symptoms and refusal to take a mood stabilizer on a consistent basis Lorazepam 1 mg daily and 2mg at bedtime and 1-2mg q4hrs as needed. Diazepam 10 mg nightly when necessary insomnia not addressed by Lunesta Lunesta 1mg po nighty prn insomnia Quetiapine 100mg po q4 hour PRN Atorvastatin 40 mg daily. Albuterol metered dose inhaler as needed. Diphenhydramine 50 mg by mouth every 6 hours when necessary itching Glipizide 10 mg twice daily Ibuprofen 800 mg three times a day as needed. Levothyroxine 200 mcg daily. Lisinopril 5 mg daily Metformin 1000 mg twice daily Methocarbamol 750 mg by mouth 4 times a day when necessary cramping Pantoprazole 40 mg daily. vitamin. Treatments Patient is being provided with a high degree of safety through our unit structure and active adult engagement provided by our mental health professionals, mental health technicians, psychiatric nurses and myself. We are focusing on developing improved coping skills and identifying stressors that may have led to current episode. We will attempt to: * Integrate into therapeutic groups, milieu and individual therapy. * Maintain in a closely monitored and structured unit * Provide low-stimulation environment * Assess degree of lability of affect and impulse control * Complete safety plan * Decrease frequency of relapse and need for re-hospitalization * Denies thoughts of harm to others * Establish a consistent sleep pattern * Medication effective in stabilization of mood and/or thought process * Reduce the risk of imminent harm to self and/or others by providing a safe environment * Tolerates medication without side effects * iVolet has been ordered the following psychiatric medications: Abilify Maintena (she has been refusing this dose since 07/26/2016) Depakote ER 1000 mg daily (she has been refusing this medication for over a month) Abilify 10 mg every morning Discontinue up Cymbalta 20 mg daily Education: Educate patient about recreational drug use as an etiology Educate about metabolic etiologies related to obesity Patient's legal status 180 day LRO +14 involuntary treatment hold starting 07/21/2016 with involuntary medication hearing 08/02/2016 Patient has been assigned a psychiatric second opinion. Inocencia will assist Dr. Graf at 930am on Sunday to have access to EMR. Anticipated number of hospital days to achieve above goals: Unknown Disposition: [facility] for long-term stabilization Liam Dobbins MD Jul 29, 2016 12:03
[2016-07-29 12:12] VITALS: BP 142/86; PULSE 69; RESP 16
--- NOTE | 2016-07-29 13:53 | NUR ---
[id number]. nurs. 1140. SECLUSION. Pt exhibiting out of control, repetitive intrusive, interrupting behaviour with and his mtgs with other patients, pt loudly yelling delusional ideation , posturing and verbally threatening statements to "I'm , you guys are changing my test!", "I want out of this fucking place!, send me to [facility]!" Pt repeatedly unresponsive to redirection and refusing offered meds. Pt making punching fists and pt walked ahead of staff escort to seclusion. providing order for seclusion at 1140. Pt continuing to yell and threaten in seclusion, did take offered 2mg of ativan po at 1147. Pt refused offered po zyprexa and Yue larsen team required for assistance to administer IM zyprexa at 1249. Pt continued to yell and threaten, but gradually settled, and pt requesting and given motrin 800mg at 1303. OUT of SECLUSION at 1415. Pt agreed to follow behavioural contract with staff to remain in bedrm to rest and maintain behavioural and verbal control and pt out of seclusion to her bedrm at 1415 and has maintained quiet behaviour resting in bedrm. Addendum: 07/30/16 at 1024 by RYAN QUINTEROS RN Please note pt accepted dose of 10mg of abilify in am with sheduled meds and refused offered depakote dose adamantly
[2016-07-29] MEDS: LORazepam 1 mg Tablet PO SCH (21:19)
[2016-07-29] MEDS: LUNESTA 1 MG PO PRN (21:19)
[2016-07-29] MEDS: diphenhydrAMINE 50 mg Capsule PO PRN (21:20)
--- NOTE | 2016-07-29 22:37 | NUR ---
SALINA PT's speech remains very pressured. PT was present in group and offers commentary with each pt who speaks. PT spoke about her time in seclusion today and was not happy about experience. PT stated "those god dam SOB's gave me zyprexa. If I gain weight from it I am suing the fuckers. They better never put me in there again." PT requested all of her HS meds early as pt did not take her routine shower. PT is presently in her room and is resting in her bed. WIll CTM and continue to offer anti-psychotics. PT continues to refuse recommended meds.
[2016-07-30] MEDS: HYDROcodone-APAP 5-325 mg Tablet PO PRN ×3 (04:54→22:36)
--- NOTE | 2016-07-30 05:28 | NUR ---
Nursing note: shift foreman. Patient awake at start of shift, continues to complain of being unable to sleep, although frequently noted to be standing with eyes closed. Patient continues with dialog of going to [facility]" Patient did eventually retire to bed at 0145, then back up at 0515. Patient in dining room wiping (dusting) window nicolasa. Remains pressured with fragmented sleep.
[2016-07-30] MEDS: Pantoprazole 40 mg ER24 Tablet PO SCH (07:27)
[2016-07-30] MEDS: Multivit-Miner-Folic Acid-Iron Tablet PO SCH (07:27)
[2016-07-30] MEDS: ARIPiprazole 10 mg Tablet PO SCH (07:34)
[2016-07-30] MEDS: Divalproex (QD) 500 mg ER24 Tablet PO SCH (07:34)
[2016-07-30 09:53] VITALS: BP 136/73; PULSE 60; RESP 18
[2016-07-30] MEDS: LORazepam 1 mg Tablet PO PRN (10:40)
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
--- NOTE | 2016-07-30 15:43 | NUR ---
[id number]. nurs. S: "I think I need some ativan 1mg no 2 mg... 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 O: Pt requesting and given ativan 2 mg as requested at 1040. Pt had repeated some of her thoughts about being secluded yesterday and given zyprexa, and voicing desire for legal action and anger toward Unit staff but stating that she intended to adopt appropriate behaviour in her interaction with today. Pt did request interview with and maintained appropriate control of behaviour and limited her conversation to maintain points she wanted to address. A:Through day pt stayed involved in exercise and other grps available, still exhibiting some pressured and poor boundaries with information she wants to give to other pts, particularly new pts. Continues to have poor insight re. sleep deprivation, mood elevation and instability, and inappropriate verbal expression and behaviour. O: Pt received phonecall from daughter that she had anticipated would be a positive and voiced her intention not to worry her daughter but received news of further in family and extremely upset re. all that she is unable to do with family outside the hosp. because of her protracted hospitalization. Pt refused offer of ativan or 1:1 with staff and went to room to process feelings. P:CNCP Addendum: 07/30/16 at 1830 by RYAN QUINTEROS RN Pt given motrin for c/o hip pain after dinner. Pt was able to work through distress re family loss and come out of bedrm to check OT =100 and eat dinner with calm er presentation and moderated voice.
--- NOTE | 2016-07-30 17:50 | NUR ---
[facility] Day Shift Pt affect and behavior unchanged from previous shifts, remains labile and unpredictable. Pt continues to endorse grandiose and paranoid delusions, in addition to ruminating on previous trauma. Pt continues to spend most of the shift attempting to interact with peers and engage in unit activities. Pt remains intrusive with staff and peers, as well as disruptive during group activities. Pt is generally redirectable this shift. Pt attended all group activities throughout the shift. Pt attended all meals and ate approx 80% of all meals.
[2016-07-30] MEDS: LUNESTA 1 MG PO PRN (22:31)
[2016-07-30] MEDS: LORazepam 1 mg Tablet PO SCH (22:32)
[2016-07-31] MEDS: diphenhydrAMINE 50 mg Capsule PO PRN ×2 (01:13→22:27)
[2016-07-31] MEDS: HYDROcodone-APAP 5-325 mg Tablet PO PRN ×3 (03:49→22:28)
[2016-07-31] MEDS: LORazepam 1 mg Tablet PO SCH ×2 (03:52→22:26)
--- NOTE | 2016-07-31 05:37 | NUR ---
pain: pt's c/o leg pain, pt. given vicodin, robaxin, and ibuprofen.
--- NOTE | 2016-07-31 05:48 | NUR ---
Nursing Note [employer] 11pm to 7am Pt awake at start of shift, fluctuating between common area and bedroom, micromanaging pts, belligerent and threatening staff, attempting to manipulating staff into giving her additional snacks because " My sugar is dropping". Took BS which was 80 and pt still badgered staff, standing at nurses station yelling at this policy writer sales and threatening to file a complaint. Pt slept from 0230 to 0345. Pt received multiple prns this shift. (See MAR ) with minimal relief. Pt is delusional, paranoid, confrontational and difficult to redirect. Monitored pt for safety location and accountability.
[2016-07-31] MEDS: Pantoprazole 40 mg ER24 Tablet PO SCH (07:38)
[2016-07-31] MEDS: Multivit-Miner-Folic Acid-Iron Tablet PO SCH (07:40)
[2016-07-31] MEDS: ARIPiprazole 10 mg Tablet PO SCH (07:41)
[2016-07-31] MEDS: Divalproex (QD) 500 mg ER24 Tablet PO SCH (07:44)
[2016-07-31 11:11] VITALS: BP 148/84; PULSE 64; RESP 15
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
--- NOTE | 2016-07-31 16:02 | NUR ---
Hydraulics Teacher/Counselor S: I've got a doctor that is testifying on my behalf." O: Patient stated "no, no, no, no, no", when asked about SI or HI, AVH, and when asked to rate her depression or anxiety she rated them both at 0. Patient slept for 1 hour last night. A: Patient was tangential manic and trying to interact with a [place] speaking client. She did not attend group and has been dealing with tooth pain. She was out in the milieu but at times secluded herself to her room. She stated that coming down off her medication was making her feel bad. P:Follow care plan and coordinate with outpatient providers.
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
[2016-07-31] MEDS: LUNESTA 1 MG PO PRN (22:55)
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
[2016-08-01] MEDS: LORazepam 1 mg Tablet PO PRN ×2 (01:44→13:22)
[2016-08-01] MEDS: diphenhydrAMINE 50 mg Capsule PO PRN ×2 (04:38→20:52)
[2016-08-01] MEDS: Magnesium Hydroxide 10 mL Oral Concentration PO PRN (04:39)
[2016-08-01] MEDS: HYDROcodone-APAP 5-325 mg Tablet PO PRN ×3 (04:39→13:22)
[2016-08-01] MEDS: ARIPiprazole 10 mg Tablet PO SCH (08:02)
[2016-08-01] MEDS: Multivit-Miner-Folic Acid-Iron Tablet PO SCH (08:03)
[2016-08-01] MEDS: Pantoprazole 40 mg ER24 Tablet PO SCH (08:03)
[2016-08-01] MEDS: Divalproex (QD) 500 mg ER24 Tablet PO SCH (08:04)
[2016-08-01] MEDS: LORazepam 1 mg Tablet PO SCH (08:09)
[2016-08-01 12:54] VITALS: BP 136/86; PULSE 83; RESP 18
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
--- NOTE | 2016-08-01 15:40 | NUR ---
Contour Band Saw Operator Vertical/Counselor S:"My toe is infected. You want to see it?" O: Patient does not report any SI, HI, AVH, anxiety or depression. Did not sleep last night. A: Patient has been manic and uncooperative. She has been inappropriate with staff and other patients. She requires frequent redirection and has been told several times to lay down and attempt to nap. Patient did not attend group, and was reading court papers aloud from her bed. P:Follow care plan and coordinate with outpatient providers.
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
--- NOTE | 2016-08-01 18:11 | NUR ---
Wound Note Order received to assess right middle toe issue. Patient presents with likely ingrown nail with associated local infection, appears to be purulence beneath the skin on the lateral and proximal edge of nail bed. Recommend studio data analyst consult during this hospital stay, patient at risk due to diabetic diagnosis.
[2016-08-01] MEDS: LUNESTA 1 MG PO PRN (23:16)
[2016-08-02] MEDS: LORazepam 1 mg Tablet PO PRN ×2 (00:59→09:57)
[2016-08-02] MEDS: LUNESTA 1 MG PO PRN (00:59)
--- NOTE | 2016-08-02 06:56 | NUR ---
Nursing Noc Pt remains emotionally labile, intrusive, hypomanic with delusion of being . Noted to get a total of 3.75 hours of sleep last night. Pt signed medication acceptance of some medications only. Scheduled for court Sunday. Continuing to monitor mood, behavior, and emotional state. q15 minute safety checks performed. CP
[2016-08-02] MEDS: Pantoprazole 40 mg ER24 Tablet PO SCH (07:29)
[2016-08-02] MEDS: Magnesium Hydroxide 10 mL Oral Concentration PO PRN (07:53)
[2016-08-02] MEDS: Multivit-Miner-Folic Acid-Iron Tablet PO SCH (07:54)
[2016-08-02] MEDS: ARIPiprazole 10 mg Tablet PO SCH (07:54)
[2016-08-02] MEDS: Divalproex (QD) 500 mg ER24 Tablet PO SCH ×3 (07:59→20:06)
[2016-08-02 08:13] LABS: Mean Corpuscular Hemoglobin 28.4 pg (27.0-35.0)
[2016-08-02] MEDS: diphenhydrAMINE 50 mg Capsule PO SCH ×2 (12:15→20:05)
[2016-08-02] MEDS ORDERED: Haloperidol 5 mg/mL Inj IM PRN ×2 (12:15→14:55)
[2016-08-02] MEDS: LORazepam 1 mg Tablet PO SCH ×2 (12:30→20:05)
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
[2016-08-02 13:27] VITALS: BP 144/87; PULSE 77; RESP 16
--- NOTE | 2016-08-02 16:18 | NUR ---
Fire Equipment Inspector Helper/Counselor S:"If you got it you should flaunt it, just like I do!" O: Patient did not have any SI or HI, no AVH and no anxiety or depression. Patient slept for 3.75 hours. A: Patient was manic and hyper before her court appearance, and declined from there. She has spent most of the afternoon in seclusion. She was yelling and screaming at staff and was detained by security. P: Follow care plan and coordinate with outpatient providers.
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
[2016-08-02] MEDS: HYDROcodone-APAP 5-325 mg Tablet PO PRN (20:05)
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
--- NOTE | 2016-08-03 03:17 | NUR ---
Nursing Noc Pt presents in seclusion at start of shift and has required continuation of same. Have attempted to debrief, offer toileting and PO fluids and food with zero improvement of behavior. Zero medical explanation noted for behavior. Pt continues to be paranoid, delusional and verbally and physically threatening. Mood appears to change about every fifteen minutes from cooperative to hostile. Patient has attempted to rest throughout the night. Blankets and pillows provided for mattress and patient did accept toileting once with security present and much direction to return to seclusion room. Continuing to monitor, mood, behavior and emotional state. 1:1 observation remains in use throughout the night. Addendum: 08/03/16 at 0508 by AMBROSE MAJANO RN 0500 " I haven't felt my baby since yesterday and you guys are all going to pay", Give me six cups of ice water, get me the fuck out of hear", Wakey Wakey everybody", Patient has been screaming for the last 20 minutes or more.
[2016-08-03] MEDS: HYDROcodone-APAP 5-325 mg Tablet PO PRN ×3 (04:18→20:33)
[2016-08-03] MEDS: Divalproex (QD) 500 mg ER24 Tablet PO SCH ×2 (08:15→20:34)
[2016-08-03] MEDS: diphenhydrAMINE 50 mg Capsule PO SCH ×2 (08:15→20:33)
[2016-08-03] MEDS: Multivit-Miner-Folic Acid-Iron Tablet PO SCH (08:15)
[2016-08-03] MEDS: LORazepam 1 mg Tablet PO SCH ×3 (08:16→20:32)
[2016-08-03] MEDS: Pantoprazole 40 mg ER24 Tablet PO SCH (08:17)
--- NOTE | 2016-08-03 09:20 | NUR ---
Nursing Dayshift: S: "I don't trust you anymore. You're a lousy nurse!" O: Statement patient made when taking her AM meds. Blood sugar 137. Had already started eating. "I want meat on my breakfast sandwich!" Ate well. Compliant with all of her scheduled meds this AM including Depakote. A: Pressured. Angry. Yelling at times. P: CPOC. Monitor mood and behavior. Continue seclusion for safety of others. Addendum: 08/03/16 at 1315 by JOSE HERNANDEZ RN MD spoke with patient. See physician note. Urine noted on the floor. "Don't clean it up because I want to make doctor B, S, and W lick it up." Staff cleaned up the floor and took bedding to the laundry room. New bedding provided for patient to "I'll make my own bed." Often yelling for and at staff. Has been escorted to the bathroom when requested. Clean change of clothes given. Soiled clothing in laundry. Continue seclusion for safety of others. Addendum: 08/03/16 at 1417 by JOSE F HERNANDEZ RN Patient continues yelling loudly at times. Continues to threaten doctors and other staff verbally. Toileting independently when needed. Will continue seclusion for the safety of others.
--- NOTE | 2016-08-03 12:10 | PCM.PNPSY ---
Subjective Date of Service Aug 03, 2016 Subjective I spent 30 minutes both reviewing treatment plan with our clinical team, and interviewing Violet in the seclusion area. I was only able to engage Violet in the brief interaction reporting both that she was "going to romana " and "Im going to talk to my family lawyer and you dont need to know anything". She related to me in a hostile non-respectful manner replete with many expletives. Staff reports a decrease in symptoms of yahaira with psychotic delusional thoughts over the past [address] ordered medications. She has has required continued seclusion because she has been difficult to redirect and is continuing to make statements that she will cause physical harm to staff. She reports medication side effects of feeling sedated and needing to take a nap during the day (patient reportedly slept 4 hours last night). I tried to engage her in a medication consultation, and I recommended that she try a course of Abilify and Depakote. She refused stating that she is fine with the medications she is taking (twice a day Haldol Ativan Benadryl and Depakote). Current Medications Current Medications Diphenhydramine HCl 50 mg BID PO Last administered on 08/03/16 08:15; Admin Dose 50 MG; Start 08/02/16 at 12:15 Diphenhydramine HCl 50 mg BID PRN IM Last administered on 08/02/16 13:09; Admin Dose 50 MG; Start 08/02/16 at 12:15 Diphenhydramine HCl 50 mg ONCE ONCE IM Last administered on 08/02/16 15:22; Admin Dose 50 MG; Start 08/02/16 at 14:55; Stop 08/02/16 at 15:06; Status DC Divalproex Sodium 500 mg BID PO Last administered on 08/03/16 08:15; Admin Dose 500 MG; Start 08/02/16 at 12:30 Haloperidol 10 mg BID PO Last administered on 08/03/16 08:15; Admin Dose 10 MG ; Start 08/02/16 at 12:15 Haloperidol Lactate 10 mg BID PRN IM Last administered on 08/02/16 13:10; Admin Dose 10 MG; Start 08/02/16 at 12:15 Lorazepam 2 mg BID PO Last administered on 6/22/17at 10:39; Admin Dose 2 MG; Start 08/02/16 at 12:30 Lorazepam 2 mg BID PRN IM Last administered on 08/02/16t 13:09; Admin Dose 2 MG ; Start 08/02/16 at 12:15 Lorazepam 2 mg ONCE ONCE IM Last administered on 08/02/16t 15:20; Admin Dose 2 MG; Start 08/02/16 at 14:55; Stop 08/02/16 at 15:06; Status DC Mental Status Exam Appearance: Neat/well groomed Attitude: Guarded, Uncooperative, Hostile/Threatening Behavior: Distractible Affect: Labile Mood: Expansive, Irritable, Fearful, Other (angry) Thought Process/Associations: Loose, Tangential Speech Production: Loud Speech Rate: Pressured Speech Articulation: Normal Thought Content: Congregational preoccupation, Negativistic, Somatic preoccupation, Suspicious, Perseveration, Erotomanic Delusions: Paranoid, Grandiose, Somatic (Endorses) Consciousness: Somnolent Orientation: Unable to assess Memory: Untestable Estimate Intellectual Function: Unable to assess Basis for IQ estimate: Word use/vocabulary Attention/Concentration & Cogn: Impaired Insight: Limited Judgement: Limited Result Diagram: 08/02/16 0800 Mental Health Plan The patient is a 56-year-old female with a recent psychiatric hospitalization at the [facility] (admitted 05/01/2016 and discharged on 05/19/2016). The patient had been discharged to [facility], but she had been unable to follow expectations and was demonstrating symptoms of decompensation. On admission, she presented with multiple symptoms of bipolar disorder with psychosis including distractibility, pressured speech, racing thoughts, grandiose and paranoid delusions, increased activity, and poor interpersonal boundaries with impaired judgment and insight. The patient was admitted on a revocation of a less restrictive order following failure to comply with her less restrictive order. She has been tried on a number of medications but stabilized on a combination of aripiprazole 20 mg daily and Depakote 750 mg. The patient has consistently refused Depakote and so has been continued on a combination of lorazepam and aripiprazole. The patient received her first dose of Abilify Maintena 400 mg on April 26, 2016,her second dose on May 26, 2016, and third on June 25, 2016. She refused her third dose scheduled for 2016. Since that time she has been increasingly agitated and paranoid. She is having increasing symptoms of both yahaira and psychosis with paranoia and intrusive behaviors. Sunday the events assistant signed an order for court ordered meds to include possible combinations of Abilify, lithium Depakote and Haldol. On Sunday she refused by mouth medications and instead of using an NG tube I chose to use IM Haldol with Benadryl and Ativan to help with side effects and mood stabilization. Today Staff reports a decrease in symptoms of yahaira with psychotic delusional thoughts over the past [address] ordered medications. She has has required continued seclusion because she has been difficult to redirect and is continuing to make statements that she will cause physical harm to staff. She reports medication side effects of feeling sedated and needing to take a nap during the day (patient reportedly slept 4 hours last night). I tried to engage her in a medication consultation, and I recommended that she try a course of Abilify and Depakote. She refused stating that she is fine with the medications she is taking (twice a day Haldol Ativan Benadryl and Depakote). [place] I. Bipolar disorder, manic, with psychotic features, Posttraumatic stress disorder, Polysubstance use disorder, in early remission. [place] II. Deferred. [place] III. Hypertension, Insulin-dependent diabetes mellitus, hypothyroidism, and obesity, recent fall. [place] IV. Unknown. [place] V. Current Global Assessment of Functioning is 30 Medications hold Aripiprazole 10mg daily hold Abilify Maintena 400 mg IM monthly, 1st given April 26, 2016, last given on 06/25/16, next due on 07/26/2016, declined Offer Depakote ER 500 mg twice a day, currently refusing (instead of using an NG tube will use IM Haldol and Benadryl and Ativan for the initial treatment). Haldol 10 mg by mouth or IM twice a day Benadryl 50 mg by mouth or IM twice a day Ativan 2 mg by mouth or IM twice a day Lorazepam 1-2mg q4hrs as needed. Atorvastatin 40 mg daily. Albuterol metered dose inhaler as needed. Diphenhydramine 50 mg by mouth every 6 hours when necessary itching Glipizide 10 mg twice daily Ibuprofen 800 mg three times a day as needed. Levothyroxine 200 mcg daily. Lisinopril 5 mg daily Metformin 1000 mg twice daily Methocarbamol 750 mg by mouth 4 times a day when necessary cramping Pantoprazole 40 mg daily. vitamin. Treatments Patient is being provided with a high degree of safety through our unit structure and active adult engagement provided by our mental health professionals, mental health technicians, psychiatric nurses and myself. We are focusing on developing improved coping skills and identifying stressors that may have led to current episode. We will attempt to: * Integrate into therapeutic groups, milieu and individual therapy. * Maintain in a closely monitored and structured unit * Provide low-stimulation environment * Assess degree of lability of affect and impulse control * Complete safety plan * Decrease frequency of relapse and need for re-hospitalization * Denies thoughts of harm to others * Establish a consistent sleep pattern * Medication effective in stabilization of mood and/or thought process * Reduce the risk of imminent harm to self and/or others by providing a safe environment * Tolerates medication without side effects * Violet has been ordered the following psychiatric medications: hold Aripiprazole 10mg daily hold Abilify Maintena 400 mg IM monthly, 1st given April 26, 2016, last given on 06/25/16, next due on 07/26/2016, declined Offer Depakote ER 500 mg twice a day, currently refusing (instead of using an NG tube will use IM Haldol and Benadryl and Ativan for the initial treatment). Haldol 10 mg by mouth or IM twice a day Benadryl 50 mg by mouth or IM twice a day Ativan 2 mg by mouth or IM twice a day Education: Educate about metabolic etiologies related to obesity Patient's legal status 180 day LRO +14 involuntary treatment hold starting Sunday08/04/2016. involuntary medication hearing 08/02/[address] ordered by mouth or IM medication combinations of Abilify Depakote and lithium and Haldol. Anticipated number of hospital days to achieve above goals: Unknown Disposition: [facility] for long-term stabilization or supervised [facility]ci setting if patient can be stabilized on the unit. Liam Dobbins MD Aug 03, 2016 12:10
[2016-08-03 14:02] VITALS: BP 127/80; PULSE 70; RESP 16
[2016-08-03] MEDS: Magnesium Hydroxide 10 mL Oral Concentration PO PRN (18:34)
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
--- NOTE | 2016-08-04 05:18 | NUR ---
Nursing Noc Pt continues to be verbally aggressive and demanding with long tangential historical accounts of experiences from her past. Pt remains difficult to direct and will escalate to yelling quickly if given and audience. Pt taking food and fluids through the night and asked to use the bathroom for the first time this shift. Pt up this AM at 0450 and was taken to bathroom at that time. Pt performed all her ADLs at that time and given more water per her request.
[2016-08-04] MEDS: HYDROcodone-APAP 5-325 mg Tablet PO PRN ×3 (06:42→21:28)
[2016-08-04] MEDS: Multivit-Miner-Folic Acid-Iron Tablet PO SCH (08:11)
[2016-08-04] MEDS: Pantoprazole 40 mg ER24 Tablet PO SCH (08:11)
[2016-08-04] MEDS: Divalproex (QD) 500 mg ER24 Tablet PO SCH ×2 (08:11→21:23)
[2016-08-04] MEDS: diphenhydrAMINE 50 mg Capsule PO SCH ×2 (08:11→21:23)
[2016-08-04] MEDS: LORazepam 1 mg Tablet PO SCH ×2 (08:12→21:23)
[2016-08-04] MEDS: Magnesium Hydroxide 10 mL Oral Concentration PO PRN (10:08)
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
--- NOTE | 2016-08-04 14:32 | PCM.PNPSY ---
Subjective Date of Service Aug 04, 2016 Subjective I spent 30 minutes both reviewing treatment plan with our clinical team, and interviewing Violet in the seclusion area. I was only able to engage Violet in the brief interaction reporting both that she was "going to see me in court". She related to me in a flat and non-engaged manner. Staff reports a decrease in symptoms of yahaira as well as a decrease in psychotic delusional thoughts over the past [address] ordered medications. She has has required continued seclusion because she has been difficult to redirect and is continuing to make statements that she will cause physical harm to staff. She reports medication side effects of feeling sedated and that we killed her baby.. I tried to engage her in a medication consultation, and I recommended that she try a course of Abilify and Depakote. She refused stating that she is fine with the medications she is taking (twice a day Haldol Ativan Benadryl and Depakote). Current Medications Current Medications Diphenhydramine HCl 50 mg ONCE ONCE IM Last administered on 08/02/16 15:22; Admin Dose 50 MG; Start 08/02/16 at 14:55; Stop 08/02/16 at 15:06; Status DC Lorazepam 2 mg ONCE ONCE IM Last administered on 08/02/16 15:20; Admin Dose 2 MG; Start 08/02/16 at 14:55; Stop 08/02/16 at 15:06; Status DC Mental Status Exam Appearance: Neat/well groomed Attitude: Guarded, Uncooperative, Hostile/Threatening Behavior: Distractible Affect: Labile Mood: Expansive, Irritable, Fearful, Other (angry) Thought Process/Associations: Loose, Tangential Speech Production: Loud Speech Rate: Pressured Speech Articulation: Normal Thought Content: Shinto preoccupation, Negativistic, Somatic preoccupation, Suspicious, Perseveration, Erotomanic Delusions: Paranoid, Grandiose, Somatic (Endorses) Consciousness: Somnolent Orientation: Unable to assess Memory: Untestable Estimate Intellectual Function: Unable to assess Basis for IQ estimate: Word use/vocabulary Attention/Concentration & Cogn: Impaired Insight: Limited Judgement: Limited Result Diagram: 08/02/16 0800 Mental Health Plan The patient is a 56-year-old female with a recent psychiatric hospitalization at the [facility] (admitted 05/01/2016 and discharged on 05/19/2016). The patient had been discharged to [facility], but she had been unable to follow expectations and was demonstrating symptoms of decompensation. On admission, she presented with multiple symptoms of bipolar disorder with psychosis including distractibility, pressured speech, racing thoughts, grandiose and paranoid delusions, increased activity, and poor interpersonal boundaries with impaired judgment and insight. The patient was admitted on a revocation of a less restrictive order following failure to comply with her less restrictive order. She has been tried on a number of medications but stabilized on a combination of aripiprazole 20 mg daily and Depakote 750 mg. The patient has consistently refused Depakote and so has been continued on a combination of lorazepam and aripiprazole. The patient received her first dose of Abilify Maintena 400 mg on April 26, 2016,her second dose on May 26, 2016, and third on June 25, 2016. She refused her third dose scheduled for 2016. Since that time she has been increasingly agitated and paranoid. She is having increasing symptoms of both yahaira and psychosis with paranoia and intrusive behaviors. Sunday the utility bill collection clerk signed an order for court ordered meds to include possible combinations of Abilify, lithium Depakote and Haldol. On Sunday she refused by mouth medications and instead of using an NG tube I chose to use IM Haldol with Benadryl and Ativan to help with side effects and mood stabilization. Staff reports a decrease in symptoms of yahaira as well as a decrease in psychotic delusional thoughts over the past [address] ordered medications. She has has required continued seclusion because she has been difficult to redirect and is continuing to make statements that she will cause physical harm to staff. She reports medication side effects of feeling sedated and that we killed her baby.. I tried to engage her in a medication consultation, and I recommended that she try a course of Abilify and Depakote. She refused stating that she is fine with the medications she is taking (twice a day Haldol Ativan Benadryl and Depakote). [place] I. Bipolar disorder, manic, with psychotic features, Posttraumatic stress disorder, Polysubstance use disorder, in early remission. [place] II. Deferred. [place] III. Hypertension, Insulin-dependent diabetes mellitus, hypothyroidism, and obesity, recent fall. [place] IV. Unknown. [place] V. Current Global Assessment of Functioning is 30 Medications hold Aripiprazole 10mg daily hold Abilify Maintena 400 mg IM monthly, 1st given April 26, 2016, last given on 06/25/16, next due on 07/26/2016, declined Offer Depakote ER 500 mg twice a day, currently refusing (instead of using an NG tube will use IM Haldol and Benadryl and Ativan for the initial treatment). Haldol 10 mg by mouth or IM twice a day Benadryl 50 mg by mouth or IM twice a day Ativan 2 mg by mouth or IM twice a day Lorazepam 1-2mg q4hrs as needed. Atorvastatin 40 mg daily. Albuterol metered dose inhaler as needed. Diphenhydramine 50 mg by mouth every 6 hours when necessary itching Glipizide 10 mg twice daily Ibuprofen 800 mg three times a day as needed. Levothyroxine 200 mcg daily. Lisinopril 5 mg daily Metformin 1000 mg twice daily Methocarbamol 750 mg by mouth 4 times a day when necessary cramping Pantoprazole 40 mg daily. vitamin. Treatments Patient is being provided with a high degree of safety through our unit structure and active adult engagement provided by our mental health professionals, mental health technicians, psychiatric nurses and myself. We are focusing on developing improved coping skills and identifying stressors that may have led to current episode. We will attempt to: * Integrate into therapeutic groups, milieu and individual therapy. * Maintain in a closely monitored and structured unit * Provide low-stimulation environment * Assess degree of lability of affect and impulse control * Complete safety plan * Decrease frequency of relapse and need for re-hospitalization * Denies thoughts of harm to others * Establish a consistent sleep pattern * Medication effective in stabilization of mood and/or thought process * Reduce the risk of imminent harm to self and/or others by providing a safe environment * Tolerates medication without side effects * Violet has been ordered the following psychiatric medications: hold Aripiprazole 10mg daily hold Abilify Maintena 400 mg IM monthly, 1st given April 26, 2016, last given on 06/25/16, next due on 07/26/2016, declined Offer Depakote ER 500 mg twice a day, currently refusing (instead of using an NG tube will use IM Haldol and Benadryl and Ativan for the initial treatment). Haldol 10 mg by mouth or IM twice a day Benadryl 50 mg by mouth or IM twice a day Ativan 2 mg by mouth or IM twice a day Education: Educate about metabolic etiologies related to obesity Patient's legal status 180 day LRO +14 involuntary treatment hold starting Sunday08/04/2016. involuntary medication hearing 08/02/[address] ordered by mouth or IM medication combinations of Abilify Depakote and lithium and Haldol. Anticipated number of hospital days to achieve above goals: Unknown Disposition: [facility] for long-term stabilization or supervised jail setting if patient can be stabilized on the unit. Liam Dobbins MD Aug 04, 2016 14:32
--- NOTE | 2016-08-04 18:45 | NUR ---
Scientific Writer/Counselor S/O: Patient refused to talk during interview so interview was terminated. Patient only slept 4 hours last night per staff. A: Patient is uncooperative, guarded, hostile, threatening, tangential, suspicious, erotomanic, distractable, labile, irritable, fearful, angry, paranoid, grandiose, somatic preoccupation, limited insight, limited judgment. P:Follow care plan and coordinate with outpatient providers, monitor behavior.
--- NOTE | 2016-08-04 20:28 | NUR ---
Observations 0900 to 0 Pt affect and mood remained same as previous shifts. Threatening, demanding, inappropriate with this senior mortgage underwriter, screaming, yelling, angry and irritable. Pt speech was rapid, pressured, rambling. Pt eye contact was good but intense at times. Pt maintained behavior throughout the shift. Pt has a good appetite and ate 100% of her meals. Pt had poor boundaries with staff. Pt requires occasional staff redirection. Pt was observed every 15 minutes throughout the shift as ordered.
[2016-08-04 21:35] VITALS: BP 153/87; PULSE 76; RESP 16
[2016-08-05] MEDS ORDERED: LORazepam 2 mg Tablet ONE (00:54)
[2016-08-05] MEDS ORDERED: LORazepam 1 mg Tablet PO PRN (01:20)
[2016-08-05] MEDS: HYDROcodone-APAP 5-325 mg Tablet PO PRN ×3 (06:43→22:54)
--- NOTE | 2016-08-05 07:58 | NUR ---
Nursing Note Compatibility Test Engineer 7pm to 7am Pt in seclusion at start of shift, observed pt. defecating on floor and smearing it on the seclusion room wall. Reminded pt. to request to use the bathroom in the future. Pt moved to other seclusion room and assisted with cleaning herself up. Took PO HS meds without difficulty. Throughout the night pt. fluctuated between resting and angry outbursts and was easily triggered, going from calm to extremely angry. Pt threatening and accusing staff of a laundry list of items which were not reality based. Pt toileted frequently throughout the night, refused vital signs, order for a 1x dose of Ativan 2mg po or IM obtained and po dose given with good effect. Order obtained from Dr. Dobbins to continue seclusion at 2100, 0100 and 0500 due to pts continued agitation, threatening bx and refusal to contract for safety if released at this time. 1:1 sitter monitored pt with q 15 minute face checks for safety, accountability Addendum: 08/05/16 at 0759 by MARLYN FERNÁNDEZ RN Amended: Links added.
[2016-08-05] MEDS: Divalproex (QD) 500 mg ER24 Tablet PO SCH ×2 (08:35→22:50)
[2016-08-05] MEDS: LORazepam 1 mg Tablet PO SCH ×2 (08:35→22:49)
[2016-08-05] MEDS: diphenhydrAMINE 50 mg Capsule PO SCH ×2 (08:35→22:49)
[2016-08-05] MEDS: Pantoprazole 40 mg ER24 Tablet PO SCH (08:35)
[2016-08-05] MEDS: Multivit-Miner-Folic Acid-Iron Tablet PO SCH (08:35)
[2016-08-05 12:00] VITALS: BP 119/64; PULSE 68; RESP 16
[2016-08-05] MEDS ORDERED: diphenhydrAMINE 50 mg Capsule PO SCH (13:50)
[2016-08-05] MEDS: diphenhydrAMINE 50 mg Capsule PO PRN (14:29)
--- NOTE | 2016-08-05 14:41 | NUR ---
S/O: Patient remains in seclusion, but was cooperative when speaking to the doctor. A: Patient is still irritable and tangential. Limited insight and judgment. P:Continue to monitor behavior and follow care plan. Coordinate with outpatient providers.
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
--- NOTE | 2016-08-05 18:54 | NUR ---
[facility] Note D-Patient attended to basic ADLs this shift. She was unable to attend or participate in any structured groups or activities this shift as she was in locked seclusion. Patient ate breakfast but did not eat lunch. She ate dinner in the dining room. A- Patient was in locked seclusion appearing calm and easily engaged. She asked for the restroom when appropriate and brushed her teeth during one point. Patient stated that she needed to pee so much because she has lost her baby and the made her pee. At 1515 she was taken out of locked seclusion. She took a shower and then has spent most of the shift socializing on the back patio or watching tv. Patient appears pressured in speech at times but is able to calm and quiet her voice independently. She is also able to recognize and stop inappropriate conversation in the milieu, apologizing and restating appropriately. She did not divulge any insight into her illness to this colorer but laughed and denied being suicidal or homicidal. P- Continue current treatment plan.
--- NOTE | 2016-08-05 19:02 | NUR ---
Nursing Note-End of Seclusion S: Pt has been cooperative with staff. She reports Benadryl has been effective. Pt calm & rational. She signed behavioral contract & says she will be able to follow it. She says she will be able to follow unit rules & maintain behavioral control. Pt debriefed. Seclusion ended at 1515. Pt has been able to control behavior since being out in milieu. Pt has been polite & cooperative with staff & peers. A: Pt is currently maintaining appropriate behavior. P: Provide supportive environment. Monitor medications & effects.
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
[2016-08-05 22:37] VITALS: BP 122/71; PULSE 75; RESP 16
[2016-08-06] MEDS: diphenhydrAMINE 50 mg Capsule PO PRN ×2 (01:27→23:26)
[2016-08-06] MEDS: HYDROcodone-APAP 5-325 mg Tablet PO PRN ×3 (01:27→23:24)
[2016-08-06] MEDS: LORazepam 1 mg Tablet PO PRN (01:27)
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
[2016-08-06] MEDS: LORazepam 1 mg Tablet PO SCH ×2 (08:01→20:11)
[2016-08-06] MEDS: Pantoprazole 40 mg ER24 Tablet PO SCH (08:03)
[2016-08-06] MEDS: Multivit-Miner-Folic Acid-Iron Tablet PO SCH (08:03)
[2016-08-06] MEDS: diphenhydrAMINE 50 mg Capsule PO SCH ×2 (08:03→20:11)
[2016-08-06 08:15] VITALS: BP 123/74; PULSE 72; RESP 18
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
--- NOTE | 2016-08-06 17:16 | PCM.PNPSY ---
Subjective Date of Service Aug 06, 2016 Subjective The patient was angry last night believing that someone had stolen her cherry. She was noted to be able to interact with some activities without interrupting others and then later in the evening had this outburst. This morning, the patient was still perseverating on her lost garment but later found it in her room, then reported another garment missing. She also reported to nursing staff that the Depakote was going to kill her baby and that she would romana the hospital for making her take this medication. When interviewed the patient was pleasant and relatively calm and was attempting to engage a peer in a game of catch. The patient reported that the additional Benadryl helps somewhat but she was still complaining of some body aches. We discussed scheduling a larger dose of methocarbamol at bedtime and the patient was agreeable to this plan. The patient also reported a mild rash from the antiperspirant wipes and requested swallow of deodorant if possible (her daughter has not brought in a supply recently.) Since this morning the patient has been in fairly good behavioral control and engaging in the milieu and with peers appropriately. Sleep: 3+ hours Appetite: Good Suicidal and homicidal ideation: Denies Auditory hallucinations: Denies Visual hallucinations: Denies Other Psychotic Symptoms: Ongoing paranoia and hostility, symptoms appear ameliorated. Anxiety: Denies Depression: Denies Current Medications Current Medications Diazepam 10 mg HS PRN PO Last administered on 08/06/16 01:31; Admin Dose 10 MG ; Start 08/05/16 at 20:45 Diphenhydramine HCl 50 mg Q6H PRN PO Last administered on 08/06/16 01:27; Admin Dose 50 MG; Start 08/05/16 at 14:25 Lorazepam 1-2mg po q8 hr prn anxiety/ agitation, to... Q8 PRN PO Last administered on 08/06/16 01:27; Admin Dose 1 MG; Start 08/05/16 at 20:15 Lorazepam 2 mg STK-MED ONCE .ROUTE Last administered on 08/05/16 01:; Admin Dose 2 MG; Start 08/05/16 at 00:54; Stop 08/05/16 at 00:58; Status DC Mental Status Exam Appearance: Neat/well groomed Attitude: Cooperative, Guarded Behavior: Distractible Affect: Restricted Mood: Irritable (mild), Anxious Thought Process/Associations: Goal Directed Speech Production: Normal Speech Rate: Normal Speech Articulation: Normal Thought Content: Orthodoxy preoccupation, Negativistic, Somatic preoccupation, Suspicious, Perseveration, Erotomanic Danger to Self/Suicidal Ideati: None Danger to Others: None Delusions: Paranoid, Grandiose, Somatic (Endorses) Hallucinations: Auditory (Denies), Visual (Denies) Consciousness: Alert Orientation: Person, Place, Situation Memory: Grossly Intact Estimate Intellectual Function: Average Basis for IQ estimate: Word use/vocabulary Attention/Concentration & Cogn: Impaired Insight: Limited Judgement: Limited Result Diagram: 08/02/16 0800 Mental Health Plan The patient is a 56-year-old female with a recent psychiatric hospitalization at the [facility] (admitted 05/01/2016 and discharged on 05/19/2016). The patient had been discharged to [facility], but she had been unable to follow expectations and was demonstrating symptoms of decompensation. On admission, she presented with multiple symptoms of bipolar disorder with psychosis including distractibility, pressured speech, racing thoughts, grandiose and paranoid delusions, increased activity, and poor interpersonal boundaries with impaired judgment and insight. The patient was admitted on a revocation of a less restrictive order following failure to comply with her less restrictive order. She has been tried on a number of medications but previously stabilized on a combination of aripiprazole 20 mg daily and Depakote 750 mg. The patient refused Depakote and later the patient began refusing both Abilify Maintena and aripiprazole oral more than 10 mg daily. As the patient was subtherapeutic on 400 mg and had previously required at least 20 mg daily this would likely not improved her situation. Received outside records from [facility] from where she was admitted on a revocation of a LRO on 06/19/2000 after stopping her medication, began acting bizarrely, frightening her and children. She also had charges after driving a car across a neighbors lawn and harassing police officers allegedly at their homes. She was diagnosed with Schizophrenia, Chronic paranoid type and was admitted on quetiapine 600mg and levothyroxine 0.175mg. She was tried on olanzapine as she had been prescribed this on a previous admission but had not been effective, was discontinued and changed to risperidone 6mg with quetiapine.600mg. She was noted to be uncooperative with medication, but not assaultive and did not require seclusion or restraint. Patient continues to be delusional but since refusing Abilify Maintena now reports she will take oral aripiprazole but only 10mg. The patient continues to report "allergies" to other medications due to weight gain and is refusing to take them. She had consistently refused Depakote for this reason. She has also refused, Trileptal, quetiapine, olanzapine, haloperidol, lithium and others for similar reasons. The patient has reported a number of physical ailments such as cracked hands which she reports are a side effect of all of medications, rather than her constant cleaning. Her aripiprazole level was 130 ng/mL with a therapeutic range typically an 150-300 ng/mL and typical lowest level of side effects between 110-249 ng/mL. The patient was quite agitated and delusional since receiving paperwork that a compelled medication hearing has been scheduled and has been generally hostile to this life underwriter. As the patient is on a 180 day order, the court order was required for ongoing involuntary treatment. The patient received an extension to allow for an outside expert. The patient has subsequently had court and was ordered to comply with treatment including haloperidol and divalproex. The patient had spent a prolonged period of time in seclusion but appears to finally be stabilizing. The patient still shows limited insight and is wanting to discontinue Depakote but is remaining medication adherent. The patient was agreeable to only taking Abilify oral 10 mg daily and did not want the long-acting injection. The patient appears to have mild dystonia from haloperidol. We discussed that once patient is stable we may be able to reduce the dose. We discussed increasing the methocarbamol to 1000 mg scheduled at bedtime to better address nighttime discomfort. [place] I. Bipolar disorder, manic, with psychotic features, Posttraumatic stress disorder, Polysubstance use disorder, in early remission. [place] II. Deferred. [place] III. Hypertension, Insulin-dependent diabetes mellitus, hypothyroidism, and obesity, recent fall. [place] IV. Unknown. [place] V. Current Global Assessment of Functioning is 30 Medications hold Aripiprazole 10mg daily hold Abilify Maintena 400 mg IM monthly, 1st given April 26, 2016, last given on 06/25/16, next due on 07/26/2016, declined Offer Depakote ER 500 mg twice a day Haldol 10 mg by mouth or IM twice a day Benadryl 50 mg by mouth or IM twice a day Ativan 2 mg by mouth or IM twice a day Lorazepam 1-2mg q4hrs as needed. Atorvastatin 40 mg daily. Albuterol metered dose inhaler as needed. Diphenhydramine 50 mg by mouth every 6 hours when necessary itching/cogwheeling/ EPS Glipizide 10 mg twice daily Ibuprofen 800 mg three times a day as needed. Levothyroxine 200 mcg daily. Lisinopril 5 mg daily Metformin 1000 mg twice daily Methocarbamol 750 mg by mouth 4 times a day when necessary cramping Pantoprazole 40 mg daily. vitamin. Treatments 1. The patient is admitted to the inpatient unit and will be provided a safe and secure environment. 2. The patient is denying current active suicidality and is not in need of a one-to-one at this time. 3. The patient is encouraged to participate with group and milieu activities. 4. The patient will be seen by the treatment team on a daily basis to assess symptoms, side effects and response to treatment. 5. The patient received medication override for treatment. 6. Prolactin level drawn due to report of and prolonged use of antipsychotics, was found to be low, patient may warrant outpatient mammogram. If symptoms worsen consider ultrasound. 7. Continue haloperidol 10 mg twice daily. 8. Change Depakote to 1000 mg at bedtime. 9. Schedule methocarbamol 1000 mg nightly 10. Patient is encouraged to use lidocaine jelly for dental pain. 11. Await follow-up from risk management/TURBINE ATTENDANT regarding dental appointment. Jez Stephens MD Aug 06, 2016 17:05
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
[2016-08-06] MEDS: Divalproex (QD) 500 mg ER24 Tablet PO SCH (20:12)
--- NOTE | 2016-08-07 00:30 | NUR ---
Nursing Noc Pt spent the evening out in the milieu watching a movie with her peers. She was able to maintain behavioral control. She requested her HS medication and took her medication without difficulty. Later in the evening she c/o having hip pain and feeling restless. She received prn Benadryl 50mg po prn for restless legs, Valium 10mg po prn for agitation and [place] 2 tabs po prn for hip pain rated 8/10. Pt able to retire to bed and appeared asleep by 0015. Addendum: 08/07/16 at 0122 by AMY GREEN RN Pt's thoughts continue to be suspicious and guarded. She stated "I don't care if I go in seclusion. I don't care about anything anymore." Addendum: 08/07/16 at 0358 by AMY GREEN RN Pt slept from [id number] for a total of 3.5 hours. Pt presents as less pressured and quietly walking the hallway.
[2016-08-07] MEDS: Pantoprazole 40 mg ER24 Tablet PO SCH (08:05)
[2016-08-07] MEDS: LORazepam 1 mg Tablet PO SCH ×2 (08:06→21:48)
[2016-08-07] MEDS: diphenhydrAMINE 50 mg Capsule PO SCH ×2 (08:06→21:48)
[2016-08-07] MEDS: Multivit-Miner-Folic Acid-Iron Tablet PO SCH (08:07)
[2016-08-07] MEDS: Magnesium Hydroxide 10 mL Oral Concentration PO PRN (08:43)
[2016-08-07 09:30] VITALS: BP 144/79; PULSE 63; RESP 18
--- NOTE | 2016-08-07 15:59 | NUR ---
Tree [place] Shrub Technician/Counselor S:" I don't like sleeping my days away." O: Patient denied any SI and HI, no AVH and no anxiety. She rated her depression at a 2. She slept for 5.25 ours. A: Patient spent the better part of the morning and early afternoon napping. She attended the last 5 minutes of structured group and participated in art class afterward. She stated she was depressed due to being "locked up". She was tangential at times, but cooperative. P: Follow care plan and coordinate with outpatient providers.
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
[2016-08-07] MEDS: Divalproex (QD) 500 mg ER24 Tablet PO SCH (21:49)
[2016-08-07] MEDS: HYDROcodone-APAP 5-325 mg Tablet PO PRN (21:50)
--- NOTE | 2016-08-07 22:07 | PCM.PNPSY ---
Subjective Date of Service Aug 07, 2016 Subjective The patient is still irritable about court testimony last week, but eventually calmed. Patient reports sedation from haloperidol and was agreeable to taking aripiprazole. Patient unwilling to cross-taper, but this is clearly required given recent and current behavior. Reports having body aches, but then able to bend forward, touch the ground and arch her other leg over her back in Pilates move. Continues to report dental pain. Sleep: 5.25+ hours Appetite: Good Suicidal and homicidal ideation: Denies Auditory hallucinations: Denies Visual hallucinations: Denies Other Psychotic Symptoms: Ongoing paranoia and hostility, symptoms appear ameliorated. Anxiety: Denies Depression: Denies Current Medications Current Medications Divalproex Sodium 1,000 mg HS PO Last administered on 08/07/16 21:49; Admin Dose 1,000 MG; Start 08/06/16 at 21:00 Haloperidol 10 mg HS PO Last administered on 08/07/16 21:48; Admin Dose 10 MG; Start 08/07/16 at 21:00 Methocarbamol 1,000 mg HS PO Last administered on 08/07/16 21:47; Admin Dose 1, 000 MG; Start 08/06/16 at 21:00 Mental Status Exam Appearance: Neat/well groomed Attitude: Cooperative, Guarded Behavior: Distractible Affect: Restricted Mood: Irritable, Anxious Thought Process/Associations: Goal Directed Speech Production: Normal Speech Rate: Normal Speech Articulation: Normal Thought Content: Cheondoism preoccupation, Negativistic, Somatic preoccupation, Suspicious, Perseveration, Erotomanic Danger to Self/Suicidal Ideati: None Danger to Others: None Delusions: Paranoid, Grandiose, Somatic Hallucinations: Auditory (Denies), Visual (Denies) Consciousness: Alert Orientation: Person, Place, Situation Memory: Grossly Intact Estimate Intellectual Function: Average Basis for IQ estimate: Word use/vocabulary Attention/Concentration & Cogn: Impaired Insight: Limited Judgement: Limited Result Diagram: 08/02/16 0800 Mental Health Plan The patient is a 56-year-old female with a recent psychiatric hospitalization at the [facility] (admitted 05/01/2016 and discharged on 05/19/2016). The patient had been discharged to [facility], but she had been unable to follow expectations and was demonstrating symptoms of decompensation. On admission, she presented with multiple symptoms of bipolar disorder with psychosis including distractibility, pressured speech, racing thoughts, grandiose and paranoid delusions, increased activity, and poor interpersonal boundaries with impaired judgment and insight. The patient was admitted on a revocation of a less restrictive order following failure to comply with her less restrictive order. She has been tried on a number of medications but previously stabilized on a combination of aripiprazole 20 mg daily and Depakote 750 mg. The patient refused Depakote and later the patient began refusing both Abilify Maintena and aripiprazole oral more than 10 mg daily. As the patient was subtherapeutic on 400 mg and had previously required at least 20 mg daily this would likely not improved her situation. Received outside records from [facility] from where she was admitted on a revocation of a LRO on 06/19/2000 after stopping her medication, began acting bizarrely, frightening her and children. She also had charges after driving a car across a neighbors lawn and harassing police officers allegedly at their homes. She was diagnosed with Schizophrenia, Chronic paranoid type and was admitted on quetiapine 600mg and levothyroxine 0.175mg. She was tried on olanzapine as she had been prescribed this on a previous admission but had not been effective, was discontinued and changed to risperidone 6mg with quetiapine.600mg. She was noted to be uncooperative with medication, but not assaultive and did not require seclusion or restraint. Patient continues to be delusional but since refusing Abilify Maintena now reports she will take oral aripiprazole but only 10mg. The patient continues to report "allergies" to other medications due to weight gain and is refusing to take them. She had consistently refused Depakote for this reason. She has also refused, Trileptal, quetiapine, olanzapine, haloperidol, lithium and others for similar reasons. The patient has reported a number of physical ailments such as cracked hands which she reports are a side effect of all of medications, rather than her constant cleaning. Her aripiprazole level was 130 ng/mL with a therapeutic range typically an 150-300 ng/mL and typical lowest level of side effects between 110-249 ng/mL. The patient was quite agitated and delusional since receiving paperwork that a compelled medication hearing has been scheduled and has been generally hostile to this health underwriter. As the patient is on a 180 day order, the court order was required for ongoing involuntary treatment. The patient received an extension to allow for an outside expert. The patient has subsequently had court and was ordered to comply with treatment including haloperidol and divalproex. The patient had spent a prolonged period of time in seclusion but appears to finally be stabilizing. The patient still shows limited insight and is wanting to discontinue Depakote but is remaining medication adherent. The patient was agreeable to only taking Abilify oral 10 mg daily and did not want the long-acting injection. The patient appears to have mild dystonia from haloperidol. We discussed reducing haloperidol and restarting aripiprazole, patient unwilling to cross-taper, if refuses will need to return to haloperidol. [place] I. Bipolar disorder, manic, with psychotic features, Posttraumatic stress disorder, Polysubstance use disorder, in early remission. [place] II. Deferred. [place] III. Hypertension, Insulin-dependent diabetes mellitus, hypothyroidism, and obesity, recent fall. [place] IV. Unknown. [place] V. Current Global Assessment of Functioning is 30 Medications Aripiprazole 10mg daily hold Abilify Maintena 400 mg IM monthly, 1st given April 26, 2016, last given on 06/25/16, next due on 07/26/2016, declined Offer Depakote ER 500 mg twice a day Haldol 10 mg by mouth or IM nightly Benadryl 50 mg by mouth or IM twice a day Ativan 2 mg by mouth or IM twice a day Lorazepam 1-2mg q4hrs as needed. Atorvastatin 40 mg daily. Albuterol metered dose inhaler as needed. Diphenhydramine 50 mg by mouth every 6 hours when necessary itching/cogwheeling/ EPS Glipizide 10 mg twice daily Ibuprofen 800 mg three times a day as needed. Levothyroxine 200 mcg daily. Lisinopril 5 mg daily Metformin 1000 mg twice daily Methocarbamol 750 mg by mouth 4 times a day when necessary cramping Pantoprazole 40 mg daily. vitamin. Treatments 1. The patient is admitted to the inpatient unit and will be provided a safe and secure environment. 2. The patient is denying current active suicidality and is not in need of a one-to-one at this time. 3. The patient is encouraged to participate with group and milieu activities. 4. The patient will be seen by the treatment team on a daily basis to assess symptoms, side effects and response to treatment. 5. The patient received medication override for treatment. 6. Prolactin level drawn due to report of and prolonged use of antipsychotics, was found to be low, patient may warrant outpatient mammogram. If symptoms worsen consider ultrasound. 7. Continue haloperidol 10 mg nightly. 8. Change Depakote to 1000 mg at bedtime. 9. Schedule methocarbamol 1000 mg nightly 10. Patient is encouraged to use lidocaine jelly for dental pain. 11. Await follow-up from risk management/RESILIENT TILE INSTALLER regarding dental appointment. 12. Start aripiprazole 10mg daily. Jez Stephens MD Aug 07, 2016 22:07
--- NOTE | 2016-08-08 00:07 | NUR ---
Nursing Noc Pt showing slight improvement in mood. She still will perseverates on past history and trauma but instead of escalating to anger she has been stating "I will just pray for them. Why let them ruin my night". Pt watched a movie with her peers. Took her scheduled medication without difficulty. She received [place] 2 tabs po prn for knee pain which decreased to 3/10. She reports pain is tolerable at this level. She had a good phone call with her granddaughter. Pt remains awake at this time doing quiet activities. Pt presents as less intrusive this evening and responsive to direction by staff. She has not made any negative statements about staff tonight. Addendum: 08/08/16 at 0110 by AMY GREEN RN Pt stated "I'm worn out. My hip pain is 8/10". Pt received Motrin 800mg po prn @ 013 then retired to bed. Will reassess pain and sleep cycle through the night. Addendum: 08/08/16 at 0141 by AMY GREEN RN As patient remains awake her paranoia has increased with thoughts that her has killed women and put them under the house and that he created a false wall in their master bath with bad plans to harm or kill her. Pt provided reassurance and provided Valium 10mg po prn and Tylenol 650mg for continued hip pain. Addendum: 08/08/16 at 0246 by AMY GREEN RN Pt appeared to sleep for less than an half hour. She woke up agitated and angry. Thinking staff had stolen her clothing. She was upset about her medication stating "Those sh*t doctors. They are making me take medication that aren't helping. If I gain weight they are going to pay! I know what is going on!" Pt presents as agitated and paranoid. She requested and received Tylenol for hip pain stating "It hurts!" She received Ativan 2mg po prn for agitation and Benadryl 50mg po prn for sleep promotion. Will assess medication efficacy and sleep cycle. Addendum: 08/08/16 at 0620 by AMY GREEN RN Pt became increasingly labile during the night. She had poor sleep tonight. She slept for a half an hour from [id number] and fell asleep again at 0545. Less than one hour of sleep tonight.
[2016-08-08] MEDS: LORazepam 1 mg Tablet PO PRN (02:33)
[2016-08-08] MEDS: diphenhydrAMINE 50 mg Capsule PO PRN (02:34)
[2016-08-08] MEDS: Pantoprazole 40 mg ER24 Tablet PO SCH (07:33)
[2016-08-08] MEDS: ARIPiprazole 10 mg Tablet PO SCH (07:35)
[2016-08-08] MEDS: LORazepam 1 mg Tablet PO SCH (07:36)
[2016-08-08] MEDS: Multivit-Miner-Folic Acid-Iron Tablet PO SCH (07:36)
[2016-08-08] MEDS: diphenhydrAMINE 50 mg Capsule PO SCH ×2 (07:36→20:55)
[2016-08-08] MEDS: Magnesium Hydroxide 10 mL Oral Concentration PO PRN (11:01)
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
--- NOTE | 2016-08-08 16:05 | NUR ---
Aligning Checker/Counselor S:"I am over medicated." O: No SI or HI, no AVH, and no anxiety. Stated her depression was at a 5, which was due to "being overmedicated." A: Patient was in her room for most of the day and did not attend either group. She complained about the medication, stating that it is ruining her life. She did go outside onto the patio. P:Follow care plan and coordinate with outpatient providers.
--- NOTE | 2016-08-08 17:43 | NUR ---
Nursing: RE: Lunesta prescription request. Towel Stretcher contacted PACT RN about having PACT team staff pick up driver Lunesta RX that at [facility]. Clary, PACT RN called back to telegraphic typewriter operator and stated that she had called [facility] and they denied having a current script for Lunesta for Malu. Clary stated that the process to get this for Malu is the following: Attending could order Lunesta from [facility] by 11 a.m. on Sun A.m. Lunesta RX would be sent to PACT the next day (). PACT worker can deliver to [facility] here when worker comes to visit [facility] on . IF [facility] needs authorization for this RX, Clary will have them fax an authorization form to [facility]. Form would be filled out by Attending doctor and faxed to [facility] FAX [phone] After approval, prescription would be filled and process would follow as outlined above.
--- NOTE | 2016-08-08 17:55 | NUR ---
Nursing: PRN Medication: Malu requested and received Motrin 800 mg at 1656 for hip pain. At 1730, stated that "it is working".
--- NOTE | 2016-08-08 20:51 | PCM.PNPSY ---
Subjective Date of Service Aug 08, 2016 Subjective The patient is still irritable about court testimony last week and reporting Emmanuel is killing her baby. Patient reports didn't sleep last night well and was quite sedated during the day. Patient reports methocarbamol helpful with body aches, but that they are not completely removed. Patient requesting Lunesta though is aware this is non-formulary. Sleep: 1+ hours Appetite: Good Suicidal and homicidal ideation: Denies Auditory hallucinations: Denies Visual hallucinations: Denies Other Psychotic Symptoms: Ongoing paranoia and hostility, symptoms appear ameliorated. Anxiety: Denies Depression: Denies Current Medications Current Medications Aripiprazole 10 mg DAILY PO Last administered on 08/08/16 07:35; Admin Dose 10 MG; Start 08/08/16 at 08:30 Divalproex Sodium 1,000 mg HS PO Last administered on 08/07/16 21:49; Admin Dose 1,000 MG; Start 08/06/16 at 21:00 Haloperidol 10 mg HS PO Last administered on 08/07/16 21:48; Admin Dose 10 MG; Start 08/07/16 at 21:00 Methocarbamol 1,000 mg HS PO Last administered on 08/07/16 21:47; Admin Dose 1, 000 MG; Start 08/06/16 at 21:00 Mental Status Exam Appearance: Neat/well groomed Attitude: Cooperative, Guarded Behavior: Distractible Affect: Restricted Mood: Irritable, Anxious Thought Process/Associations: Goal Directed Speech Production: Normal Speech Rate: Normal Speech Articulation: Normal Thought Content: Presybeterian preoccupation, Negativistic, Somatic preoccupation, Suspicious, Perseveration, Erotomanic Danger to Self/Suicidal Ideati: None Danger to Others: None Delusions: Paranoid, Grandiose, Somatic Hallucinations: Auditory (Denies), Visual (Denies) Consciousness: Alert Orientation: Person, Place, Situation Memory: Grossly Intact Estimate Intellectual Function: Average Basis for IQ estimate: Word use/vocabulary Attention/Concentration & Cogn: Impaired Insight: Limited Judgement: Limited Result Diagram: 08/02/16 0800 Mental Health Plan The patient is a 56-year-old female with a recent psychiatric hospitalization at the [facility] (admitted 05/01/2016 and discharged on 05/19/2016). The patient had been discharged to [facility], but she had been unable to follow expectations and was demonstrating symptoms of decompensation. On admission, she presented with multiple symptoms of bipolar disorder with psychosis including distractibility, pressured speech, racing thoughts, grandiose and paranoid delusions, increased activity, and poor interpersonal boundaries with impaired judgment and insight. The patient was admitted on a revocation of a less restrictive order following failure to comply with her less restrictive order. She has been tried on a number of medications but previously stabilized on a combination of aripiprazole 20 mg daily and Depakote 750 mg. The patient refused Depakote and later the patient began refusing both Abilify Maintena and aripiprazole oral more than 10 mg daily. As the patient was subtherapeutic on 400 mg and had previously required at least 20 mg daily this would likely not improved her situation. Received outside records from [facility] from where she was admitted on a revocation of a LRO on 06/19/2000 after stopping her medication, began acting bizarrely, frightening her and children. She also had charges after driving a car across a neighbors lawn and harassing police officers allegedly at their homes. She was diagnosed with Schizophrenia, Chronic paranoid type and was admitted on quetiapine 600mg and levothyroxine 0.175mg. She was tried on olanzapine as she had been prescribed this on a previous admission but had not been effective, was discontinued and changed to risperidone 6mg with quetiapine.600mg. She was noted to be uncooperative with medication, but not assaultive and did not require seclusion or restraint. Patient continues to be delusional but since refusing Abilify Maintena now reports she will take oral aripiprazole but only 10mg. The patient continues to report "allergies" to other medications due to weight gain and is refusing to take them. She had consistently refused Depakote for this reason. She has also refused, Trileptal, quetiapine, olanzapine, haloperidol, lithium and others for similar reasons. The patient has reported a number of physical ailments such as cracked hands which she reports are a side effect of all of medications, rather than her constant cleaning. Her aripiprazole level was 130 ng/mL with a therapeutic range typically an 150-300 ng/mL and typical lowest level of side effects between 110-249 ng/mL. The patient was quite agitated and delusional since receiving paperwork that a compelled medication hearing has been scheduled and has been generally hostile to this feature writer. As the patient is on a 180 day order, the court order was required for ongoing involuntary treatment. The patient received an extension to allow for an outside expert. The patient has subsequently had court and was ordered to comply with treatment including haloperidol and divalproex. The patient had spent a prolonged period of time in seclusion but appears to finally be stabilizing. The patient still shows limited insight and is wanting to discontinue Depakote but is remaining medication adherent. The patient is expressing irritability, but so far is going along with treatment plan. Patient may be experiencing some disinhibition from lorazepam as well as sedation, so will discontinue am dose and decrease prn dose. [place] I. Bipolar disorder, manic, with psychotic features, Posttraumatic stress disorder, Polysubstance use disorder, in early remission. [place] II. Deferred. [place] III. Hypertension, Insulin-dependent diabetes mellitus, hypothyroidism, and obesity, recent fall. [place] IV. Unknown. [place] V. Current Global Assessment of Functioning is 30 Medications Aripiprazole 10mg daily hold Abilify Maintena 400 mg IM monthly, 1st given April 26, 2016, last given on 06/25/16, next due on 07/26/2016, declined Offer Depakote ER 500 mg twice a day Haldol 10 mg by mouth or IM nightly Benadryl 50 mg by mouth or IM twice a day Ativan 2 mg by mouth or IM at bedtime Lorazepam 1mg q4hrs as needed. Atorvastatin 40 mg daily. Albuterol metered dose inhaler as needed. Diphenhydramine 50 mg by mouth every 6 hours when necessary itching/cogwheeling/ EPS Glipizide 10 mg twice daily Ibuprofen 800 mg three times a day as needed. Levothyroxine 200 mcg daily. Lisinopril 5 mg daily Metformin 1000 mg twice daily Methocarbamol 750 mg by mouth 4 times a day when necessary cramping Pantoprazole 40 mg daily. vitamin. Treatments 1. The patient is admitted to the inpatient unit and will be provided a safe and secure environment. 2. The patient is denying current active suicidality and is not in need of a one-to-one at this time. 3. The patient is encouraged to participate with group and milieu activities. 4. The patient will be seen by the treatment team on a daily basis to assess symptoms, side effects and response to treatment. 5. The patient received medication override for treatment. 6. Prolactin level drawn due to report of and prolonged use of antipsychotics, was found to be low, patient may warrant outpatient mammogram. If symptoms worsen consider ultrasound. 7. Continue haloperidol 10 mg nightly. 8. Change Depakote to 1000 mg at bedtime. 9. Schedule methocarbamol 1000 mg nightly 10. Patient is encouraged to use lidocaine jelly for dental pain. 11. Await follow-up from risk management/MAINTAINER OPERATOR regarding dental appointment. 12. Start aripiprazole 10mg daily. Jez Stephens MD Aug 08, 2016 20:51
--- NOTE | 2016-08-08 21:12 | NUR ---
Obs Dayshift Pt spent the first half of the shift in her room sleeping. The next half pt was in the milieu or out on the patio. Pt became more restless, loud, slightly irritable but holding it together. Pt was outside w/ male peers singing to them very loudly when staff reminded her to lower her voice. Pt was in the milieu singing to a peer, staff again requested her to lower her voice so peers could watch a movie. Pt has good meals, good ADL's. Continues to have a disorganized thought process, labile, irritable, [place].
[2016-08-08] MEDS: LORazepam 2 mg Tablet PO SCH (21:40)
[2016-08-08] MEDS: Divalproex (QD) 500 mg ER24 Tablet PO SCH (21:41)
--- NOTE | 2016-08-08 22:18 | NUR ---
meds; pt. took HS meds, stating "im allergic to depakote and haldol", said he was going to put me on abilify and take me off the haldol.
[2016-08-08] MEDS: HYDROcodone-APAP 5-325 mg Tablet PO PRN (23:44)
[2016-08-09] MEDS: diphenhydrAMINE 50 mg Capsule PO PRN (02:07)
[2016-08-09] MEDS: LORazepam 1 mg Tablet PO PRN (02:07)
[2016-08-09] MEDS: Pantoprazole 40 mg ER24 Tablet PO SCH (07:30)
[2016-08-09] MEDS: diphenhydrAMINE 50 mg Capsule PO SCH ×2 (08:30→22:34)
[2016-08-09] MEDS: ARIPiprazole 10 mg Tablet PO SCH (08:30)
[2016-08-09] MEDS: Multivit-Miner-Folic Acid-Iron Tablet PO SCH (08:30)
[2016-08-09] MEDS: HYDROcodone-APAP 5-325 mg Tablet PO PRN ×3 (13:41→17:15)
--- NOTE | 2016-08-09 13:56 | NUR ---
Obs Dayshift Pt is up more today than yesterday. Pt is calm, more appropriate today. Pt continues to need reminders about boundaries w/ peers and some staff, and is responding appropriate w/ staff. Pt appears very tired, groggy. Going outside on the patio and participating in games w/ peers. Appears to wake and gain energy more and more as the day goes on. Pt continues to be loud at times, pressured, labile, tired. Ok ADL's, Good meals
--- NOTE | 2016-08-09 15:07 | NUR ---
Nursing Note [id number] S: "I don't have any hope anymore, I have no motivation". "Yesterday I couldn't even motivate myself to take a shower". "I am missing out on the lives of my grandchildren and my children". "I wish I could just , blow my head off so I could get out of here-except I wont ever kill myself". O: Patient becoming brighter as shift progressed. Patient out on deck with peers, smiling, with good interaction. Patient accepted morning medications without difficulty. Continues to believe she is , and feels she knows too much and that is why she is locked in here, and they want to take her baby from her. A: Patient flat, labile, angry, delusional. P: Monitor for safety and response to treatment. Follow plan of care.
--- NOTE | 2016-08-09 18:16 | NUR ---
retail manager/Counselor: S: "I'm having fun throwing the football." O: Patient only slept 4+ hours last night per staff. Patient denies S/I and H/I. She also denies auditory and visual hallucinations. She denies depression and anxiety. A: Patient is cooperative, anxious, distactible, guarded, restricted affect, irritable, suspicious, erotomanic, paranoid, grandiose, limited insight, poor judgment. P: Follow care plan, coordinate with out-patient providers, monitor behavior.
[2016-08-09 19:27] VITALS: BP 120/72; PULSE 75; RESP 16
--- NOTE | 2016-08-09 21:51 | PCM.PNPSY ---
Subjective Date of Service Aug 09, 2016 Subjective The patient is still irritable about medications, court, etc. Reports that she is "over-medicated." Less irritable, but remains angry. Patient appeared subdued this am, but not sedated. Patient sleeping better overall, less hostile per staff. Sleep: 4+ hours Appetite: Good Suicidal and homicidal ideation: Denies Auditory hallucinations: Denies Visual hallucinations: Denies Other Psychotic Symptoms: Ongoing paranoia and hostility, symptoms appear to be slowly improving Current Medications Current Medications Aripiprazole 10 mg DAILY PO Last administered on 08/09/16 08:30; Admin Dose 10 MG; Start 08/08/16 at 08:30 Lorazepam 1 mg Q4 PRN PO Last administered on 08/09/16 02:07; Admin Dose 1 MG ; Start 08/08/16 at 20:45 Lorazepam 2 mg HS PO Last administered on 08/08/16 21:40; Admin Dose 2 MG; Start 08/08/16 at 21:00 Mental Status Exam Vital Signs Vital Signs Date Time Temp Pulse Resp B/P Pulse Ox O2 Delivery O2 Flow Rate FiO2 08/09/16 19:27 36.4 75 16 120/72 Appearance: Neat/well groomed Attitude: Cooperative (marginally), Guarded Behavior: Distractible Affect: Restricted Mood: Irritable, Anxious Thought Process/Associations: Goal Directed Speech Production: Normal Speech Rate: Normal Speech Articulation: Normal Thought Content: Taoist preoccupation, Negativistic, Somatic preoccupation, Suspicious, Perseveration, Erotomanic Danger to Self/Suicidal Ideati: None Danger to Others: None Delusions: Paranoid, Grandiose, Somatic Hallucinations: Auditory (Denies), Visual (Denies) Consciousness: Alert Orientation: Person, Place, Situation Memory: Grossly Intact Estimate Intellectual Function: Average Basis for IQ estimate: Word use/vocabulary Attention/Concentration & Cogn: Impaired Insight: Limited Judgement: Limited Mental Health Plan The patient is a 56-year-old female with a recent psychiatric hospitalization at the [facility] (admitted 05/01/2016 and discharged on 05/19/2016). The patient had been discharged to [facility], but she had been unable to follow expectations and was demonstrating symptoms of decompensation. On admission, she presented with multiple symptoms of bipolar disorder with psychosis including distractibility, pressured speech, racing thoughts, grandiose and paranoid delusions, increased activity, and poor interpersonal boundaries with impaired judgment and insight. The patient was admitted on a revocation of a less restrictive order following failure to comply with her less restrictive order. She has been tried on a number of medications but previously stabilized on a combination of aripiprazole 20 mg daily and Depakote 750 mg. The patient refused Depakote and later the patient began refusing both Abilify Maintena and aripiprazole oral more than 10 mg daily. As the patient was subtherapeutic on 400 mg and had previously required at least 20 mg daily this would likely not improved her situation. Received outside records from [facility] from where she was admitted on a revocation of a LRO on 06/19/2000 after stopping her medication, began acting bizarrely, frightening her and children. She also had charges after driving a car across a neighbors lawn and harassing police officers allegedly at their homes. She was diagnosed with Schizophrenia, Chronic paranoid type and was admitted on quetiapine 600mg and levothyroxine 0.175mg. She was tried on olanzapine as she had been prescribed this on a previous admission but had not been effective, was discontinued and changed to risperidone 6mg with quetiapine.600mg. She was noted to be uncooperative with medication, but not assaultive and did not require seclusion or restraint. Patient continues to be delusional but since refusing Abilify Maintena now reports she will take oral aripiprazole but only 10mg. The patient continues to report "allergies" to other medications due to weight gain and is refusing to take them. She had consistently refused Depakote for this reason. She has also refused, Trileptal, quetiapine, olanzapine, haloperidol, lithium and others for similar reasons. The patient has reported a number of physical ailments such as cracked hands which she reports are a side effect of all of medications, rather than her constant cleaning. Her aripiprazole level was 130 ng/mL with a therapeutic range typically an 150-300 ng/mL and typical lowest level of side effects between 110-249 ng/mL. The patient was quite agitated and delusional since receiving paperwork that a compelled medication hearing has been scheduled and has been generally hostile to this scientific technical writer. As the patient is on a 180 day order, the court order was required for ongoing involuntary treatment. The patient received an extension to allow for an outside expert. The patient has subsequently had court and was ordered to comply with treatment including haloperidol and divalproex. The patient had spent a prolonged period of time in seclusion but appears to finally be stabilizing. The patient still shows limited insight and is wanting to discontinue Depakote but is remaining medication adherent. The patient is expressing irritability, but so far is going along with treatment plan. Patient may be experiencing some disinhibition from lorazepam as well as sedation, staff report some improvement with lowered dose. Patient too irritable to approach further increase of aripiprazole with decrease in haloperidol. [place] I. Bipolar disorder, manic, with psychotic features, Posttraumatic stress disorder, Polysubstance use disorder, in early remission. [place] II. Deferred. [place] III. Hypertension, Insulin-dependent diabetes mellitus, hypothyroidism, and obesity, recent fall. [place] IV. Unknown. [place] V. Current Global Assessment of Functioning is 30 Medications Aripiprazole 10mg daily hold Abilify Maintena 400 mg IM monthly, 1st given April 26, 2016, last given on 06/25/16, next due on 07/26/2016, declined Offer Depakote ER 500 mg twice a day Haldol 10 mg by mouth or IM nightly Benadryl 50 mg by mouth or IM twice a day Ativan 2 mg by mouth or IM at bedtime Lorazepam 1mg q4hrs as needed. Atorvastatin 40 mg daily. Albuterol metered dose inhaler as needed. Diphenhydramine 50 mg by mouth every 6 hours when necessary itching/cogwheeling/ EPS Glipizide 10 mg twice daily Ibuprofen 800 mg three times a day as needed. Levothyroxine 200 mcg daily. Lisinopril 5 mg daily Metformin 1000 mg twice daily Methocarbamol 750 mg by mouth 4 times a day when necessary cramping Pantoprazole 40 mg daily. vitamin. Treatments 1. The patient is admitted to the inpatient unit and will be provided a safe and secure environment. 2. The patient is denying current active suicidality and is not in need of a one-to-one at this time. 3. The patient is encouraged to participate with group and milieu activities. 4. The patient will be seen by the treatment team on a daily basis to assess symptoms, side effects and response to treatment. 5. The patient received medication override for treatment. 6. Prolactin level drawn due to report of and prolonged use of antipsychotics, was found to be low, patient may warrant outpatient mammogram. If symptoms worsen consider ultrasound. 7. Continue haloperidol 10 mg nightly. 8. Change Depakote to 1000 mg at bedtime. 9. Schedule methocarbamol 1000 mg nightly 10. Patient is encouraged to use lidocaine jelly for dental pain. 11. Await follow-up from risk management/TONGUE AND GROOVE MACHINE FEEDER regarding dental appointment. 12. Will discuss further cross taper to aripiprazole from haloperidol tomorrow. Jez Stephens MD Aug 09, 2016 21:51
[2016-08-09] MEDS: LORazepam 2 mg Tablet PO SCH (22:34)
[2016-08-09] MEDS: Divalproex (QD) 500 mg ER24 Tablet PO SCH (22:34)
[2016-08-10] MEDS: HYDROcodone-APAP 5-325 mg Tablet PO PRN ×2 (02:21→21:58)
--- NOTE | 2016-08-10 04:40 | NUR ---
nursing, nights, 11-7 s- no i really hurt. my hip. you need to help me sit up. i need 2 tabs. thank you. o- has appeared to sleep after 0030. asked for and received 2 norco tabs with good effect at 0225. appears sleep after 0245. assessed q 15 minutes. a- improved sleep, more appropriate behavior, no apparent distress. p- monitor behavior/emotional state, quality, times and amount of sleep, use and effect of medication. yolanda
--- NOTE | 2016-08-10 05:37 | NUR ---
pain: pt. c/o knee pain, 08/21, pt. given norco at 0230, pt. given motrin this am at 0538. pt. states arthritis was better.
[2016-08-10] MEDS: Pantoprazole 40 mg ER24 Tablet PO SCH (07:51)
[2016-08-10] MEDS: ARIPiprazole 10 mg Tablet PO SCH (07:53)
[2016-08-10] MEDS: diphenhydrAMINE 50 mg Capsule PO SCH ×2 (07:53→21:43)
[2016-08-10] MEDS: Multivit-Miner-Folic Acid-Iron Tablet PO SCH (07:53)
[2016-08-10 09:30] VITALS: BP 117/73; PULSE 66; RESP 18
--- NOTE | 2016-08-10 13:08 | NUR ---
NURS NOTE DAYSHIFT Mood: "My mood is a 11/21." Denies depression. Denied anxiety initially. Later in the day pt endorsed situational anxiety, exacerbated by interaction with fellow patient who is highly disorganized and intrusive. Affect: Restricted. Thought Process/Content: "They're drugging me. I'm not bipolar. I just need an antidepressant. They're all a bunch of liars." Delusions, persecutory, paranoid. Continues to endorse . Grandiose. Hypersexual. Denies AH, VH. Denies SI, HI. Behavior: Pt in common areas much of shift; participated in groups. Walking hallways. PRNs/NURS: Took PRN lorazepam 1 mg for anxiety at 1100. Addendum: 08/10/16 at 1330 by VIET DUDLEY RN Met with PACT team client service representative about 'boundaries' at 1300. Pt appeared appropriate in meeting.
--- NOTE | 2016-08-10 16:35 | NUR ---
Nursing Dayshift: S: "Well, look who's here!" O: Patient brightened when her PACT CM arrived to visit. Smiling after visit over. Has been going to group activities. Noticeably more animated today. Noted doing a short spurt of quickly ambulating the lam early afternoon. Pleasant with select staff. Out on the patio sunning herself at present. A: Brighter. Directable. P: CPOC. Monitor mood and behavior.
--- NOTE | 2016-08-10 18:57 | NUR ---
bowling alley manager/Counselor: S: "My heart is broken. My soul is broken." O: Patient only slept 4 hours last night per staff. Patient denies S/I and H/I. She also denies auditory and visual hallucinations. She denies depression and anxiety, but misses her family. Patient goes on to state, "I should be out of here because I'm doing better than a lot of people who are getting discharged. I need to have my knee looked at, it's full of water." Patient attended 11am group session and participated in all discussions. A: Patient is cooperative, anxious, distactible, guarded, restricted affect, irritable, suspicious, erotomanic, paranoid, grandiose, limited insight, poor judgment. P: Follow care plan, coordinate with out-patient providers, monitor behavior.
--- NOTE | 2016-08-10 18:58 | NUR ---
Observations [id number] Pt continues to talk about medication and being "overly medicated." Pt friendly with peers and staff. Spent much of the day active on unit, attending groups and socializing with peers. Pt less fixated today on negative thoughts and discharge. Mentioned to this proposal writer "I need to be good so I can get out of here." Pt attended all meals, eating 100%. Pt was observed every 15 minutes of shift as directed.
[2016-08-10] MEDS: Divalproex (QD) 500 mg ER24 Tablet PO SCH (21:44)
[2016-08-10] MEDS: LORazepam 2 mg Tablet PO SCH (21:44)
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
[2016-08-11] MEDS: Pantoprazole 40 mg ER24 Tablet PO SCH (08:27)
[2016-08-11] MEDS: diphenhydrAMINE 50 mg Capsule PO SCH ×2 (08:27→20:31)
[2016-08-11] MEDS: Multivit-Miner-Folic Acid-Iron Tablet PO SCH (08:28)
[2016-08-11] MEDS: LORazepam 1 mg Tablet PO SCH (08:28)
[2016-08-11] MEDS: HYDROcodone-APAP 5-325 mg Tablet PO PRN ×2 (10:52→18:54)
--- NOTE | 2016-08-11 12:36 | NUR ---
Nursing Note [id number] Behavior, PRN Medications S/O: Pt took all am medications as ordered. She has been labile this morning. She was angry this morning about only getting 4 crackers last night instead of 6. "If I hadn't had any, my blood sugar would have dropped....I know what my body needs." Pt frustrated with news on TV. Pt irritable & intrusive with other pt's & staff. Ibuprofen requested for "joint pain" all over. Pt rated pain at a "10" on a scale of 1-10/10 the worst. Ibuprofen 800 mg given at 0940. Pt's pain d/n improve. Hydrocodone/APAP 5/325 given at 1052. Pt reports pain reduced to "7." Conversation tracking clear, but pressured. A: Pt is slightly improved in the past 4 days. P: Provide supportive environment. Monitor medications & effects.
[2016-08-11 14:16] VITALS: BP 123/77; PULSE 78; RESP 16
--- NOTE | 2016-08-11 16:42 | NUR ---
[facility] Day Shift Pt affect and behavior unchanged from previous shifts, though pt is more directable and less labile than noted on previous shifts. Pt continues to endorse grandiose and paranoid delusions, in addition to ruminating on previous trauma. Pt continues to spend most of the shift attempting to interact with peers and engage in unit activities. Pt remains intrusive with staff and peers, as well as disruptive during group activities (though less so than noted on previous shifts). Pt attended community meeting and all group activities throughout the shift. Pt attended all meals and ate approx 80% of all meals.
--- NOTE | 2016-08-11 18:29 | PCM.PNPSY ---
Subjective Date of Service Aug 11, 2016 Subjective The patient was angry about her chronic right knee pain and was requesting to see Dr. Rosales. The patient was also upset about not receiving a snack in the middle of the night as she had low blood sugar. She continued to report side effects from Depakote indicating that it was responsible for the loss of her tooth enamel. Discussed with patient that we were still waiting on follow-up from her outpatient provider regarding treatment in hospital. The patient would like to have a weight in the morning. Sleep: 5+ hours Appetite: Good Suicidal and homicidal ideation: Denies Auditory hallucinations: Denies Visual hallucinations: Denies Other Psychotic Symptoms: Ongoing paranoia and hostility, symptoms appear to be slowly improving Current Medications Current Medications Aripiprazole 15 mg DAILY PO Last administered on 08/11/16 08:28; Admin Dose 15 MG; Start 08/11/16 at 08:30 Lorazepam 1 mg DAILY PO Last administered on 08/11/16 08:28; Admin Dose 1 MG; Start 08/11/16 at 08:30 Mental Status Exam Vital Signs Vital Signs Date Time Temp Pulse Resp B/P Pulse Ox O2 Delivery O2 Flow Rate FiO2 08/11/16 14:16 78 16 123/77 Appearance: Neat/well groomed Attitude: Cooperative (marginally), Guarded, Hostile/Threatening Behavior: Distractible Affect: Labile Mood: Irritable, Anxious Thought Process/Associations: Goal Directed Speech Production: Normal Speech Rate: Normal Speech Articulation: Normal Thought Content: Nondenominational preoccupation, Negativistic, Somatic preoccupation, Suspicious, Perseveration, Erotomanic Danger to Self/Suicidal Ideati: None Danger to Others: None Delusions: Paranoid, Grandiose, Somatic Hallucinations: Auditory (Denies), Visual (Denies) Consciousness: Alert Orientation: Person, Place, Situation Memory: Grossly Intact Estimate Intellectual Function: Average Basis for IQ estimate: Word use/vocabulary Attention/Concentration & Cogn: Impaired Insight: Limited Judgement: Limited Mental Health Plan The patient is a 56-year-old female with a recent psychiatric hospitalization at the [facility] (admitted 05/01/2016 and discharged on 05/19/2016). The patient had been discharged to [facility], but she had been unable to follow expectations and was demonstrating symptoms of decompensation. On admission, she presented with multiple symptoms of bipolar disorder with psychosis including distractibility, pressured speech, racing thoughts, grandiose and paranoid delusions, increased activity, and poor interpersonal boundaries with impaired judgment and insight. The patient was admitted on a revocation of a less restrictive order following failure to comply with her less restrictive order. She has been tried on a number of medications but previously stabilized on a combination of aripiprazole 20 mg daily and Depakote 750 mg. The patient refused Depakote and later the patient began refusing both Abilify Maintena and aripiprazole oral more than 10 mg daily. As the patient was subtherapeutic on 400 mg and had previously required at least 20 mg daily this would likely not improved her situation. Received outside records from [facility] from where she was admitted on a revocation of a LRO on 06/19/2000 after stopping her medication, began acting bizarrely, frightening her and children. She also had charges after driving a car across a neighbors lawn and harassing police officers allegedly at their homes. She was diagnosed with Schizophrenia, Chronic paranoid type and was admitted on quetiapine 600mg and levothyroxine 0.175mg. She was tried on olanzapine as she had been prescribed this on a previous admission but had not been effective, was discontinued and changed to risperidone 6mg with quetiapine.600mg. She was noted to be uncooperative with medication, but not assaultive and did not require seclusion or restraint. Patient continues to be delusional but since refusing Abilify Maintena now reports she will take oral aripiprazole but only 10mg. The patient continues to report "allergies" to other medications due to weight gain and is refusing to take them. She had consistently refused Depakote for this reason. She has also refused, Trileptal, quetiapine, olanzapine, haloperidol, lithium and others for similar reasons. The patient has reported a number of physical ailments such as cracked hands which she reports are a side effect of all of medications, rather than her constant cleaning. Her aripiprazole level was 130 ng/mL with a therapeutic range typically an 150-300 ng/mL and typical lowest level of side effects between 110-249 ng/mL. The patient was quite agitated and delusional since receiving paperwork that a compelled medication hearing has been scheduled and has been generally hostile to this field underwriter. As the patient is on a 180 day order, the court order was required for ongoing involuntary treatment. The patient received an extension to allow for an outside expert. The patient has subsequently had court and was ordered to comply with treatment including haloperidol and divalproex. The patient had spent a prolonged period of time in seclusion but appears to finally be stabilizing. The patient still shows limited insight and is wanting to discontinue Depakote but is remaining medication adherent. The patient is expressing irritability, but so far is going along with treatment plan. Discussed increasing aripiprazole and discontinuing haloperidol. Patient agreed only to aripiprazole 15mg. This should bring her blood level over 150 although the exact correlation of Maintena blood levels and oral are not identical. Patient with am anxiety and previously received lorazepam 1mg daily. [place] I. Bipolar disorder, manic, with psychotic features, Posttraumatic stress disorder, Polysubstance use disorder, in early remission. [place] II. Deferred. [place] III. Hypertension, Insulin-dependent diabetes mellitus, hypothyroidism, and obesity, recent fall. [place] IV. Unknown. [place] V. Current Global Assessment of Functioning is 30 Medications Aripiprazole 15mg daily hold Abilify Maintena 400 mg IM monthly, 1st given April 26, 2016, last given on 06/25/16, next due on 07/26/2016, declined Depakote ER 1000mg nightly Haldol 5mg nightly x1 then dc Benadryl 50 mg by mouth or IM twice a day Ativan 1mg in am and 2 mg by mouth or IM at bedtime Lorazepam 1mg q4hrs as needed. Atorvastatin 40 mg daily. Albuterol metered dose inhaler as needed. Diphenhydramine 50 mg by mouth every 6 hours when necessary itching/cogwheeling/ EPS Glipizide 10 mg twice daily Ibuprofen 800 mg three times a day as needed. Levothyroxine 200 mcg daily. Lisinopril 5 mg daily Metformin 1000 mg twice daily Methocarbamol 750 mg by mouth 4 times a day when necessary cramping Pantoprazole 40 mg daily. vitamin. Treatments 1. The patient is admitted to the inpatient unit and will be provided a safe and secure environment. 2. The patient is denying current active suicidality and is not in need of a one-to-one at this time. 3. The patient is encouraged to participate with group and milieu activities. 4. The patient will be seen by the treatment team on a daily basis to assess symptoms, side effects and response to treatment. 5. The patient received medication override for treatment. 6. Prolactin level drawn due to report of and prolonged use of antipsychotics, was found to be low, patient may warrant outpatient mammogram. If symptoms worsen consider ultrasound. 7. Will review with nursing checking blood sugar at night and snack if indicated. 8. Continue aripiprazole 15mg daily 9. PT indicated that they cannot provide flexible knee brace, patient referred to hospitalist 10. Await follow-up from risk management/CLIENT REPORTING ASSOCIATE regarding dental appointment. Jez Stephens MD Aug 11, 2016 18:29
[2016-08-11] MEDS: Divalproex (QD) 500 mg ER24 Tablet PO SCH (20:31)
[2016-08-11] MEDS: LORazepam 2 mg Tablet PO SCH (20:31)
--- NOTE | 2016-08-11 22:12 | NUR ---
NURSING NOTE [id number] Mood: "I'm in pain, it's messing me up" Affect: paranoid at times, cooperative, mostly pleasant Behavior: pt. visible on the patio exercising and playing football w/peers, showered, social w/peers, dinner FSBS 77, asked for her HS meds early, made some attempts to staff split by disparaging certain staff members but was redirectable. Thought processes: continues to be paranoid about certain patients on the unit, stated she was going to [facility] the hospital when she gets out, did not mention her delusional , endorsed depression ("because I'm stuck here!") PRNs 17:45 ibuprofen 800 mg 10/10 R knee pain Robaxin 750 mg @ HS
[2016-08-12] MEDS: HYDROcodone-APAP 5-325 mg Tablet PO PRN ×2 (02:47→21:28)
--- NOTE | 2016-08-12 03:39 | NUR ---
Nursing no "I'm never going to get out of here", I've been here six months, because the doctors want me here." Pt noted to be withdrawn at times with staff members, but appears to be acting more appropriately with patients. Pt to bed early this shift and appears to be sleeping better. Up to request pain medicine and Valium. Continuing to monitor mood, behavior, and emotional state. CP.
[2016-08-12] MEDS: Pantoprazole 40 mg ER24 Tablet PO SCH (07:37)
[2016-08-12] MEDS: diphenhydrAMINE 50 mg Capsule PO SCH ×2 (07:38→21:29)
[2016-08-12] MEDS: Multivit-Miner-Folic Acid-Iron Tablet PO SCH (07:38)
[2016-08-12] MEDS: LORazepam 1 mg Tablet PO SCH ×2 (07:52→08:30)
[2016-08-12 11:00] VITALS: BP 123/75; PULSE 66; RESP 15
--- NOTE | 2016-08-12 14:21 | NUR ---
Nursing Note [id number] Medications, Behavior S/O: Pt has been trying to eat less & exercise more causing increased knee pain. She is worried about weight gain from Depakote. She thought her blood sugar was low at 1130. Blood sugar taken. It was 110. Pt states she is feeling "bloated." She says she d/n need a vitamin. 1 mg Ativan was refused this am. Dr. Stephens informed. AM Ativan d/c'd. Pt's dtr Yee called. Pt pleasant with dtr. Pt has less pressured speech. Pt attending groups. Conversation tracking clear & organized. Pleasant & cooperative with staff & peers. A: Pt is gradually improving since starting Depakote. P: Provide supportive environment. Monitor medications & effects.
--- NOTE | 2016-08-12 15:25 | NUR ---
Industrial Safety And Health Specialist/Counselor S:"I miss my family." O: Patient denies any SI and HI, no AVH, no anxiety or depression. A: Patient was pleasant and cooperative. She stated that her knee is hurting her. She attended group and spent time outside. She mentioned she as sleepy, but not as much as the last few days. The patient was slightly tangential, but easy to redirect. P: Follow care plan and coordinate with outpatient providers. Addendum: 08/12/16 at 1548 by [facility] Patient attended the group session and participated in all discussions.
--- NOTE | 2016-08-12 16:32 | PCM.PNPSY ---
Subjective Date of Service Aug 12, 2016 Subjective The patient was seen by the hospitalist yesterday who recommended an elastic support bandage however the hospital does not currently have these in stock. The patient is also concerned about dental pain but appeared patient when discussing treatment. The patient reported previously receiving dental services from [place] but would prefer to have them in [place]. She was generally pleasant and cooperative during the interview until the very end when she became upset about her still being in possession of the home and belongings and that she is homeless. The patient reported that she would like to return to [place] transitions of this were possibility. She did note that she did not want to be propositioned that she felt she had been before. She is reporting some fatigued this morning but no other side effects. Sleep: 4.5+ hours Appetite: Good Suicidal and homicidal ideation: Denies Auditory hallucinations: Denies Visual hallucinations: Denies Other Psychotic Symptoms: Paranoia and hostility significantly improved today. Anxiety: 0/10 Depression: 0/10 Current Medications Current Medications Aripiprazole 15 mg DAILY PO Last administered on 08/12/16 07:38; Admin Dose 15 MG; Start 08/11/16 at 08:30 Lorazepam 1 mg DAILY PO Last administered on 08/11/16 08:28; Admin Dose 1 MG; Start 08/11/16 at 08:30; Stop 08/12/16 at 12:37; Status DC Mental Status Exam Vital Signs Vital Signs Date Time Temp Pulse Resp B/P Pulse Ox O2 Delivery O2 Flow Rate FiO2 08/12/16 11:00 35.9 66 15 123/75 Appearance: Neat/well groomed Attitude: Pleasant (generally), Cooperative Behavior: No unusual behavior Affect: Well Modulated/Appropriate (for the most part until the very end of the interview then irritable) Mood: Euthymic, Irritable (only towards the end of the interview) Thought Process/Associations: Logical/Sequential, Goal Directed Speech Production: Normal Speech Rate: Normal Speech Articulation: Normal Thought Content: Negativistic, Somatic preoccupation, Suspicious, Perseveration Danger to Self/Suicidal Ideati: None Danger to Others: None Delusions: Paranoid, Somatic Hallucinations: Auditory (Denies), Visual (Denies) Consciousness: Alert Orientation: Person, Place, Date, Situation Memory: Grossly Intact Estimate Intellectual Function: Average Basis for IQ estimate: Word use/vocabulary Attention/Concentration & Cogn: Impaired Insight: Limited Judgement: Limited Mental Health Plan The patient is a 56-year-old female with a recent psychiatric hospitalization at the [facility] (admitted 05/01/2016 and discharged on 05/19/2016). The patient had been discharged to [facility], but she had been unable to follow expectations and was demonstrating symptoms of decompensation. On admission, she presented with multiple symptoms of bipolar disorder with psychosis including distractibility, pressured speech, racing thoughts, grandiose and paranoid delusions, increased activity, and poor interpersonal boundaries with impaired judgment and insight. The patient was admitted on a revocation of a less restrictive order following failure to comply with her less restrictive order. She has been tried on a number of medications but previously stabilized on a combination of aripiprazole 20 mg daily and Depakote 750 mg. The patient refused Depakote and later the patient began refusing both Abilify Maintena and aripiprazole oral more than 10 mg daily. As the patient was subtherapeutic on 400 mg and had previously required at least 20 mg daily this would likely not improved her situation. Received outside records from [facility] from where she was admitted on a revocation of a LRO on 06/19/2000 after stopping her medication, began acting bizarrely, frightening her and children. She also had charges after driving a car across a neighbors lawn and harassing police officers allegedly at their homes. She was diagnosed with Schizophrenia, Chronic paranoid type and was admitted on quetiapine 600mg and levothyroxine 0.175mg. She was tried on olanzapine as she had been prescribed this on a previous admission but had not been effective, was discontinued and changed to risperidone 6mg with quetiapine.600mg. She was noted to be uncooperative with medication, but not assaultive and did not require seclusion or restraint. Patient continues to be delusional but since refusing Abilify Maintena now reports she will take oral aripiprazole but only 10mg. The patient continues to report "allergies" to other medications due to weight gain and is refusing to take them. She had consistently refused Depakote for this reason. She has also refused, Trileptal, quetiapine, olanzapine, haloperidol, lithium and others for similar reasons. The patient has reported a number of physical ailments such as cracked hands which she reports are a side effect of all of medications, rather than her constant cleaning. Her aripiprazole level was 130 ng/mL with a therapeutic range typically an 150-300 ng/mL and typical lowest level of side effects between 110-249 ng/mL. The patient was quite agitated and delusional since receiving paperwork that a compelled medication hearing has been scheduled and has been generally hostile to this screen writer. As the patient is on a 180 day order, the court order was required for ongoing involuntary treatment. The patient received an extension to allow for an outside expert. The patient has subsequently had court and was ordered to comply with treatment including haloperidol and divalproex. The patient had spent a prolonged period of time in seclusion but appears to finally be stabilizing. The patient still shows limited insight and is wanting to discontinue Depakote but is remaining medication adherent. The patient is expressing irritability, but so far is going along with treatment plan. Discussed increasing aripiprazole and discontinuing haloperidol. Patient agreed only to aripiprazole 15mg. This should bring her blood level over 150 although the exact correlation of Maintena blood levels and oral are not identical. The patient had previously requested lorazepam 1 mg but would prefer this to be as needed only. She was otherwise agreeable to treatment. Patient appeared to be agreeable to outpatient treatment of her dental issues. The patient appears to stabilize sufficiently if this is maintained to be transported with senior it security analyst. [place] I. Bipolar disorder, manic, with psychotic features, Posttraumatic stress disorder, Polysubstance use disorder, in early remission. [place] II. Deferred. [place] III. Hypertension, Insulin-dependent diabetes mellitus, hypothyroidism, and obesity, recent fall. [place] IV. Unknown. [place] V. Current Global Assessment of Functioning is 30 Medications Aripiprazole 15mg daily hold Abilify Maintena 400 mg IM monthly, 1st given April 26, 2016, last given on 06/25/16, next due on 07/26/2016, declined Depakote ER 1000mg nightly Haldol 5mg nightly x1 then dc Benadryl 50 mg by mouth or IM twice a day Ativan 2 mg by mouth or IM at bedtime Lorazepam 1mg q4hrs as needed. Atorvastatin 40 mg daily. Albuterol metered dose inhaler as needed. Diphenhydramine 50 mg by mouth every 6 hours when necessary itching/cogwheeling/ EPS Glipizide 10 mg twice daily Ibuprofen 800 mg three times a day as needed. Levothyroxine 200 mcg daily. Lisinopril 5 mg daily Metformin 1000 mg twice daily Methocarbamol 750 mg by mouth 4 times a day when necessary cramping Pantoprazole 40 mg daily. vitamin. Treatments 1. The patient is admitted to the inpatient unit and will be provided a safe and secure environment. 2. The patient is denying current active suicidality and is not in need of a one-to-one at this time. 3. The patient is encouraged to participate with group and milieu activities. 4. The patient will be seen by the treatment team on a daily basis to assess symptoms, side effects and response to treatment. 5. The patient received medication override for treatment. 6. Prolactin level drawn due to report of and prolonged use of antipsychotics, was found to be low, patient may warrant outpatient mammogram. If symptoms worsen consider ultrasound. 7. Will review with nursing checking blood sugar at night and snack if indicated. 8. Continue aripiprazole 15mg daily 9. PT indicated that they cannot provide flexible knee brace, patient referred to hospitalist 10. Await follow-up from risk management/SEWING PATTERN LAYOUT TECHNICIAN regarding dental appointment. Jez Stephens MD Aug 12, 2016 16:32
--- NOTE | 2016-08-12 18:54 | NUR ---
Observations 0900 to 2130 Pt affect and mood was friendly, emotional at times and content. Pt is still intrusive but not as bad. Pt speech was rapid and pressured. Pt eye contact was good. Pt maintained behavior throughout the shift. Pt attended meals in [facility].[employer]. and ate 75% of her meals. Pt had poor boundaries with peers and staff. Pt requires some staff redirection but not as much as before. Pt attended community meeting and set a daily goal. Pt rated her mood 7/10, with 10 being the best. Pt was observed every 15 minutes throughout the shift as ordered.
[2016-08-12] MEDS: LORazepam 2 mg Tablet PO SCH (21:28)
[2016-08-12] MEDS: Divalproex (QD) 500 mg ER24 Tablet PO SCH (21:30)
--- NOTE | 2016-08-12 22:36 | NUR ---
NURSING NOTE [id number] Mood: "I'm having a really rough time... my soul is crushed" *cries* Affect: mostly pleasant and bright, more labile and tearful in late evening Behavior: visible, social, engaged in activities on the unit. Attended wrap-up group. Med compliant. Asked for PRN Robaxin (along w/scheduled Robaxin) as well as Hydrocodone 5-325 X 2 PRN at HS for 10/10 R knee pain. Tearful late in the evening crying about recent familial losses (father, cousin). Thought processes: less paranoid, complaining less about having to take medications, still has some paranoia re: medications and continues to lack insight into her condition.
[2016-08-13] MEDS: LORazepam 1 mg Tablet PO PRN ×2 (03:43→08:15)
[2016-08-13] MEDS: diphenhydrAMINE 50 mg Capsule PO PRN ×2 (03:51→12:20)
--- NOTE | 2016-08-13 06:18 | NUR ---
Sleep Pt attending to ADLs prior to bed. She was bright and pleasant upon interaction with staff prior to falling asleep. She slept from [id number] then 0500 to current time. Total sleep over 4 hours.
[2016-08-13] MEDS: Pantoprazole 40 mg ER24 Tablet PO SCH (07:34)
[2016-08-13] MEDS: diphenhydrAMINE 50 mg Capsule PO SCH ×2 (07:34→23:34)
[2016-08-13] MEDS: Magnesium Hydroxide 10 mL Oral Concentration PO PRN (08:53)
[2016-08-13] MEDS: HYDROcodone-APAP 5-325 mg Tablet PO PRN ×4 (10:15→21:18)
--- NOTE | 2016-08-13 14:09 | NUR ---
Nursing Note [id number] Behavior S/O: Pt pleasant & cooperative on unit. She is attending groups & activities. Pt took all am medications as ordered. Pt c/o "bags under my eyes....It's a side effect of the Depakote." Pt c/o knee, hip, & back pain at a "10" on a scale of 1-10/10 the worst at 1242. [place] 5/325 1 tab. It was not effective. At 1406 pt requested another one. She stated it wasn't any better. She currently reports 2nd [place] wasn't effective yet. Pt c/o allergies. Benadryl given at 1220. Conversation tracking clear & organized with normal rate & rhythm. No delusions voiced. A: Pt slowly improving. No psychotic sx noted. P: Provide supportive environment. Monitor medications & effects.
[2016-08-13 16:18] VITALS: BP 136/68; PULSE 68; RESP 18
--- NOTE | 2016-08-13 19:00 | NUR ---
[facility] Day Shift Pt maintained behavioral control throughout the shift. Pt affect appears mostly manic, but much less so than noted on previous shifts. Pt continues to spend most of the shift engaging in unit activities and interacting with peers throughout the shift. Pt is mostly appropriate with staff and peers when active on the unit, but remains somewhat intrusive. Pt continues to ruminate on past trauma and frequently relays the same stories of her past throughout the shift. Pt attended community meeting and all group activities. Pt attended all meals and ate approx 80% of all meals.
[2016-08-13] MEDS: Divalproex (QD) 500 mg ER24 Tablet PO SCH (21:00)
[2016-08-13] MEDS: [UNRECOGNIZED DRUG - OTHER] MUC_MEMBRM SCH (21:58)
[2016-08-13] MEDS: TRIAMCINOLONE 0.1% MUC_MEMBRM SCH (21:58)
--- NOTE | 2016-08-13 23:09 | PCM.PNPSY ---
Subjective Date of Service Aug 13, 2016 Subjective The patient reported doing well this morning and her mood was feeling stable. Patient received knee support and found it helpful. She continued to report dental pain but declined to use lidocaine gel. Patient reported "bags under her eyes" as Depakote side effects." Sleep: 3.75+ hours Appetite: Good Suicidal and homicidal ideation: Denies Auditory hallucinations: Denies Visual hallucinations: Denies Other Psychotic Symptoms: Minimal paranoia today. Anxiety: 0/10 Depression: 0/10 Current Medications Current Medications Triamcinolone Acetonide 1 applic [facility] [id number] Last administered on 08/13/16t 21:58; Admin Dose 1 APPLIC; Start 08/13/16 at 22:00 Mental Status Exam Vital Signs Vital Signs Date Time Temp Pulse Resp B/P Pulse Ox O2 Delivery O2 Flow Rate FiO2 08/13/16 16:18 34.9 68 18 136/68 Appearance: Neat/well groomed Attitude: Pleasant (generally), Cooperative Behavior: No unusual behavior Affect: Well Modulated/Appropriate Mood: Euthymic Thought Process/Associations: Logical/Sequential, Goal Directed Speech Production: Normal Speech Rate: Normal Speech Articulation: Normal Thought Content: Negativistic, Somatic preoccupation, Suspicious, Perseveration Danger to Self/Suicidal Ideati: None Danger to Others: None Delusions: Paranoid, Somatic Hallucinations: Auditory (Denies), Visual (Denies) Consciousness: Alert Orientation: Person, Place, Date, Situation Memory: Grossly Intact Estimate Intellectual Function: Average Basis for IQ estimate: Word use/vocabulary Attention/Concentration & Cogn: Impaired Insight: Limited Judgement: Limited Mental Health Plan The patient is a 56-year-old female with a recent psychiatric hospitalization at the [facility] (admitted 05/01/2016 and discharged on 05/19/2016). The patient had been discharged to [facility], but she had been unable to follow expectations and was demonstrating symptoms of decompensation. On admission, she presented with multiple symptoms of bipolar disorder with psychosis including distractibility, pressured speech, racing thoughts, grandiose and paranoid delusions, increased activity, and poor interpersonal boundaries with impaired judgment and insight. The patient was admitted on a revocation of a less restrictive order following failure to comply with her less restrictive order. She has been tried on a number of medications but previously stabilized on a combination of aripiprazole 20 mg daily and Depakote 750 mg. The patient refused Depakote and later the patient began refusing both Abilify Maintena and aripiprazole oral more than 10 mg daily. As the patient was subtherapeutic on 400 mg and had previously required at least 20 mg daily this would likely not improved her situation. Received outside records from [facility] from where she was admitted on a revocation of a LRO on 06/19/2000 after stopping her medication, began acting bizarrely, frightening her and children. She also had charges after driving a car across a neighbors lawn and harassing police officers allegedly at their homes. She was diagnosed with Schizophrenia, Chronic paranoid type and was admitted on quetiapine 600mg and levothyroxine 0.175mg. She was tried on olanzapine as she had been prescribed this on a previous admission but had not been effective, was discontinued and changed to risperidone 6mg with quetiapine.600mg. She was noted to be uncooperative with medication, but not assaultive and did not require seclusion or restraint. Patient continues to be delusional but since refusing Abilify Maintena now reports she will take oral aripiprazole but only 10mg. The patient continues to report "allergies" to other medications due to weight gain and is refusing to take them. She had consistently refused Depakote for this reason. She has also refused, Trileptal, quetiapine, olanzapine, haloperidol, lithium and others for similar reasons. The patient has reported a number of physical ailments such as cracked hands which she reports are a side effect of all of medications, rather than her constant cleaning. Her aripiprazole level was 130 ng/mL with a therapeutic range typically an 150-300 ng/mL and typical lowest level of side effects between 110-249 ng/mL. The patient was quite agitated and delusional since receiving paperwork that a compelled medication hearing has been scheduled and has been generally hostile to this promotion writer. As the patient is on a 180 day order, the court order was required for ongoing involuntary treatment. The patient received an extension to allow for an outside expert. The patient has subsequently had court and was ordered to comply with treatment including haloperidol and divalproex. The patient had spent a prolonged period of time in seclusion but appears to finally be stabilizing. The patient still shows limited insight and is wanting to discontinue Depakote but is remaining medication adherent. The patient is tolerating aripiprazole 15mg, but continues to attribute side effects to Depakote. Reports 10 pound weight gain, though at 94.5 kilos or fairly baseline. Discussed outside dental and need to discuss with SCOW CAPTAIN. The patient appears to stabilize sufficiently if this is maintained to be transported with security strategist. [place] I. Bipolar disorder, manic, with psychotic features, Posttraumatic stress disorder, Polysubstance use disorder, in early remission. [place] II. Deferred. [place] III. Hypertension, Insulin-dependent diabetes mellitus, hypothyroidism, and obesity, recent fall. [place] IV. Unknown. [place] V. Current Global Assessment of Functioning is 30 Medications Aripiprazole 15mg daily hold Abilify Maintena 400 mg IM monthly, 1st given April 26, 2016, last given on 06/25/16, next due on 07/26/2016, declined Depakote ER 1000mg nightly Haldol 5mg nightly x1 then dc Benadryl 50 mg by mouth or IM twice a day Ativan 2 mg by mouth or IM at bedtime Lorazepam 1mg q4hrs as needed. Atorvastatin 40 mg daily. Albuterol metered dose inhaler as needed. Diphenhydramine 50 mg by mouth every 6 hours when necessary itching/cogwheeling/ EPS Glipizide 10 mg twice daily Ibuprofen 800 mg three times a day as needed. Levothyroxine 200 mcg daily. Lisinopril 5 mg daily Metformin 1000 mg twice daily Methocarbamol 750 mg by mouth 4 times a day when necessary cramping Pantoprazole 40 mg daily. vitamin. Treatments 1. The patient is admitted to the inpatient unit and will be provided a safe and secure environment. 2. The patient is denying current active suicidality and is not in need of a one-to-one at this time. 3. The patient is encouraged to participate with group and milieu activities. 4. The patient will be seen by the treatment team on a daily basis to assess symptoms, side effects and response to treatment. 5. The patient received medication override for treatment. 6. Prolactin level drawn due to report of and prolonged use of antipsychotics, was found to be low, patient may warrant outpatient mammogram. If symptoms worsen consider ultrasound. 7. Will review with nursing checking blood sugar at night and snack if indicated. 8. Continue aripiprazole 15mg daily 9. Patient may not be able to be discharged if continues to perseverate on need to stop Depakote 10. Await follow-up from risk management/SCOW CAPTAIN regarding dental appointment. Jez Stephens MD Aug 13, 2016 23:09 9. PT indicated that they cannot provide flexible knee brace, patient referred to hospitalist 10. Await follow-up from risk management/SCOW CAPTAIN regarding dental appointment. Jez Stephens MD Aug 13, 2016 23:09
[2016-08-13] MEDS: LORazepam 2 mg Tablet PO SCH (23:42)
--- NOTE | 2016-08-14 05:11 | NUR ---
Nursing Note Printing Press Operator 11pm to 7am Pt in shower at start of shift. Pm meds held per pt. request. Pt took HS meds at 2350 and was asleep by 0130. Pt awake again by 0430. Pt did report feeling angry over the side effects of her medication but was able to regulate her emotions and keep her tone of voice and volume within normal limits. Pt monitored with q15 min face checks for safety, location and accountability.
[2016-08-14] MEDS: HYDROcodone-APAP 5-325 mg Tablet PO PRN ×4 (06:40→23:51)
[2016-08-14] MEDS: Magnesium Hydroxide 10 mL Oral Concentration PO PRN (06:40)
[2016-08-14] MEDS: TRIAMCINOLONE 0.1% MUC_MEMBRM SCH ×4 (08:00→21:52)
[2016-08-14] MEDS: [UNRECOGNIZED DRUG - OTHER] MUC_MEMBRM SCH ×4 (08:00→21:52)
[2016-08-14] MEDS: LORazepam 1 mg Tablet PO PRN (08:27)
[2016-08-14] MEDS: diphenhydrAMINE 50 mg Capsule PO SCH ×2 (08:36→21:50)
[2016-08-14] MEDS: Pantoprazole 40 mg ER24 Tablet PO SCH (08:39)
--- NOTE | 2016-08-14 16:16 | NUR ---
Wiring Inspector/Counselor S:"I'm just sad because I miss my family." O: Patient denied any SI, HI, no AVH, no anxiety or depression. A: Patient participated in group and was walking the hallways for exercise. She was slightly tangential and manic during conversation but was easy to redirect. She stated that her knee is feeling better, and that she misses her children. She is ready to be released, she stated. [facility] S[facility] may be an option for her. P:Follow care plan and coordinate with outpatient providers.
--- NOTE | 2016-08-14 18:27 | NUR ---
Nursing: S/O: "Tell him that I'm here on the psych copeland. But I'm perfectly normal!" Malu has been active on the open unit today. She was upset at 0800 (crying, then laughing within 10 minutes) and received Ativan 1 mg. Later, requested and received norco tab for pain at 0630, 1215, and 1733. Stated that this helped her pain. Acts helpful to peers at times. Comfortable and familiar on this unit. Denies depression, anxiety, and suicidal ideation. No mention of today to this communications writer. Accepts all medications as scheduled. A: Improving on current med regimen. P: Continue to assess for effect of meds. Addendum: 08/14/16 at 1843 by RENIAT HARTMANN RN Amended: Links added.
--- NOTE | 2016-08-14 18:44 | NUR ---
Observations [id number] Pt paced unit in the morning. Friendly with peers and staff, emotional regarding her stay here. Stated to this show card writer that "I'm getting so depressed staying here...it's already been 7 months. I don't know how much more I can take." Pt attended all meals, eating 100%. Pt attended group, spent time on the patio, and exercised. She was observed every 15 minutes of shift as directed.
[2016-08-14] MEDS: LORazepam 2 mg Tablet PO SCH (20:17)
[2016-08-14] MEDS: Divalproex (QD) 500 mg ER24 Tablet PO SCH (21:49)
--- NOTE | 2016-08-14 22:08 | PCM.PNPSY ---
Subjective Date of Service Aug 14, 2016 Subjective The patient reported doing well except for joint pain for which she is walking briskly back and forth on the cop[place]. The patient reports that one daughter visited, but her more stable daughter did not. The patient reported that the knee support continues to be helpful. She continued to report dental pain and did not find anti-inflammatory topical helpful. Patient requests alternative to Depakote though patient has tried all traditional medications. The patient requests podiatric follow-up for ingrown toenail. The patient requests follow- up of her thyroid due to worsening tearfulness. Sleep: 2.5+ hours Appetite: Good Suicidal and homicidal ideation: Denies Auditory hallucinations: Denies Visual hallucinations: Denies Other Psychotic Symptoms: Minimal paranoia today. Anxiety: 0/10 Depression: 0/10 Current Medications Current Medications Triamcinolone Acetonide 1 applic [facility] [id number] Last administered on 08/14/16t 17:37; Admin Dose 1 APPLIC; Start 08/13/16 at 22:00 Mental Status Exam Appearance: Neat/well groomed Attitude: Pleasant (generally), Cooperative Behavior: No unusual behavior, Tearful Affect: Labile (midly) Mood: Dysthymic Thought Process/Associations: Logical/Sequential, Goal Directed Speech Production: Normal Speech Rate: Normal Speech Articulation: Normal Thought Content: Negativistic, Somatic preoccupation, Suspicious, Perseveration Danger to Self/Suicidal Ideati: None Danger to Others: None Delusions: Paranoid (mild regarding some security officers), Somatic (Endorses) Hallucinations: Auditory (Denies), Visual (Denies) Consciousness: Alert Orientation: Person, Place, Date, Situation Memory: Grossly Intact Estimate Intellectual Function: Average Basis for IQ estimate: Word use/vocabulary Attention/Concentration & Cogn: Impaired Insight: Limited Judgement: Limited Mental Health Plan The patient is a 56-year-old female with a recent psychiatric hospitalization at the [facility] (admitted 05/01/2016 and discharged on 05/19/2016). The patient had been discharged to [facility], but she had been unable to follow expectations and was demonstrating symptoms of decompensation. On admission, she presented with multiple symptoms of bipolar disorder with psychosis including distractibility, pressured speech, racing thoughts, grandiose and paranoid delusions, increased activity, and poor interpersonal boundaries with impaired judgment and insight. The patient was admitted on a revocation of a less restrictive order following failure to comply with her less restrictive order. She has been tried on a number of medications but previously stabilized on a combination of aripiprazole 20 mg daily and Depakote 750 mg. The patient refused Depakote and later the patient began refusing both Abilify Maintena and aripiprazole oral more than 10 mg daily. As the patient was subtherapeutic on 400 mg and had previously required at least 20 mg daily this would likely not improved her situation. Received outside records from [facility] from where she was admitted on a revocation of a LRO on 06/19/2000 after stopping her medication, began acting bizarrely, frightening her and children. She also had charges after driving a car across a neighbors lawn and harassing police officers allegedly at their homes. She was diagnosed with Schizophrenia, Chronic paranoid type and was admitted on quetiapine 600mg and levothyroxine 0.175mg. She was tried on olanzapine as she had been prescribed this on a previous admission but had not been effective, was discontinued and changed to risperidone 6mg with quetiapine.600mg. She was noted to be uncooperative with medication, but not assaultive and did not require seclusion or restraint. Patient continues to be delusional but since refusing Abilify Maintena now reports she will take oral aripiprazole but only 10mg. The patient continues to report "allergies" to other medications due to weight gain and is refusing to take them. She had consistently refused Depakote for this reason. She has also refused, Trileptal, quetiapine, olanzapine, haloperidol, lithium and others for similar reasons. The patient has reported a number of physical ailments such as cracked hands which she reports are a side effect of all of medications, rather than her constant cleaning. Her aripiprazole level was 130 ng/mL with a therapeutic range typically an 150-300 ng/mL and typical lowest level of side effects between 110-249 ng/mL. The patient was quite agitated and delusional since receiving paperwork that a compelled medication hearing has been scheduled and has been generally hostile to this parts data writer. As the patient is on a 180 day order, the court order was required for ongoing involuntary treatment. The patient received an extension to allow for an outside expert. The patient has subsequently had court and was ordered to comply with treatment including haloperidol and divalproex. The patient had spent a prolonged period of time in seclusion but appears to finally be stabilizing. The patient still shows limited insight and is wanting to discontinue Depakote but is remaining medication adherent awaiting alternate treatment. The patient is tolerating aripiprazole 15mg, but continues to attribute side effects to Depakote. Discussed outside dental and need to discuss with ELEMENTARY SCHOOL PROFESSIONAL. The patient appears to stabilize sufficiently if this is maintained to be transported with security shift supervisor. Last normal thyroid studies on 05/21/16 can recheck. [place] I. Bipolar disorder, manic, with psychotic features, Posttraumatic stress disorder, Polysubstance use disorder, in early remission. [place] II. Deferred. [place] III. Hypertension, Insulin-dependent diabetes mellitus, hypothyroidism, and obesity, recent fall. [place] IV. Unknown. [place] V. Current Global Assessment of Functioning is 30 Medications Aripiprazole 15mg daily hold Abilify Maintena 400 mg IM monthly, 1st given April 26, 2016, last given on 06/25/16, next due on 07/26/2016, declined Depakote ER 1000mg nightly Haldol 5mg nightly x1 then dc Benadryl 50 mg by mouth or IM twice a day Ativan 2 mg by mouth or IM at bedtime Lorazepam 1mg q4hrs as needed. Atorvastatin 40 mg daily. Albuterol metered dose inhaler as needed. Diphenhydramine 50 mg by mouth every 6 hours when necessary itching/cogwheeling/ EPS Glipizide 10 mg twice daily Ibuprofen 800 mg three times a day as needed. Levothyroxine 200 mcg daily. Lisinopril 5 mg daily Metformin 1000 mg twice daily Methocarbamol 750 mg by mouth 4 times a day when necessary cramping Pantoprazole 40 mg daily. vitamin. Treatments 1. The patient is admitted to the inpatient unit and will be provided a safe and secure environment. 2. The patient is denying current active suicidality and is not in need of a one-to-one at this time. 3. The patient is encouraged to participate with group and milieu activities. 4. The patient will be seen by the treatment team on a daily basis to assess symptoms, side effects and response to treatment. 5. The patient received medication override for treatment. 6. Prolactin level drawn due to report of and prolonged use of antipsychotics, was found to be low, patient may warrant outpatient mammogram. If symptoms worsen consider ultrasound. 7. Will review with nursing checking blood sugar at night and snack if indicated. 8. Continue aripiprazole 15mg daily 9. Patient may not be able to be discharged if continues to perseverate on need to stop Depakote 10. Recheck thyroid studies. 11. Refer to podiatry for follow-up 12. Await follow-up from risk management/ELEMENTARY SCHOOL PROFESSIONAL regarding dental appointment. Jez Stephens MD Aug 14, 2016 22:08
[2016-08-15] MEDS: LORazepam 1 mg Tablet PO PRN ×2 (02:13→08:14)
[2016-08-15] MEDS: diphenhydrAMINE 50 mg Capsule PO PRN (02:56)
[2016-08-15] MEDS: Alum-Mag Hydrox-Simeth 30 mL Suspension PO PRN (02:59)
--- NOTE | 2016-08-15 05:20 | NUR ---
Noc shift note [id number] Pt alert and oriented x 3 with ability to make her needs known. Pt did not have any behavioral issues early on during the shift, but during HS the pt was tearful about her past. Pt encouraged to think positively and to lay down in her bed to rest. Pt refused and walked the hallway instead. Pt Given [place], Ativan, Tylenol, Robaxin, Benadryl, Valium throughout the shift and she did not sleep at all during the night. Pt c/o low blood sugar;BG 115, no s/sx of hypo/hyperglycemia noted. Continue to monitor for behavioral issues, mood changes, emotional well being by implementing Q15 minute checks for safety. Care continues.
[2016-08-15] MEDS: HYDROcodone-APAP 5-325 mg Tablet PO PRN ×3 (07:50→20:55)
[2016-08-15] MEDS: [UNRECOGNIZED DRUG - OTHER] MUC_MEMBRM SCH ×4 (08:00→20:58)
[2016-08-15] MEDS: TRIAMCINOLONE 0.1% MUC_MEMBRM SCH ×4 (08:00→20:58)
[2016-08-15] MEDS: Magnesium Hydroxide 10 mL Oral Concentration PO PRN (08:03)
[2016-08-15 08:10] VITALS: BP 161/91; PULSE 88; RESP 18
[2016-08-15] MEDS: diphenhydrAMINE 50 mg Capsule PO SCH ×2 (08:11→20:53)
[2016-08-15] MEDS: Pantoprazole 40 mg ER24 Tablet PO SCH (08:12)
[2016-08-15 10:12] LABS: BASOPHILS % (AUTO) 0.3 % (0-3); EOSINOPHILS % (AUTO) 3.4 % (0-5); MONOCYTES % (AUTO) 7.8 % (4-12); Mean Corpuscular Hemoglobin 28.7 pg (27.0-35.0); NEUTROPHILS % (AUTO) 52.9 % (40-74); Platelet Count 413 bil/L (150-400)
--- NOTE | 2016-08-15 15:13 | NUR ---
Hamper Maker/Counselor S:"My joints and muscle ache." O: Patient did not report any SI, HI, or AVH. No Anxiety or depression. A: Patient was in bed resting, and reported that her whole body aches. She blames her current medication, and spoke to the doctor about changing those. She stated she was willing to take them, as long as the doctor made the changes. She stated that she misses her family and became slightly tangential when talking about them. P: Follow care plan and coordinate with outpatient providers.
--- NOTE | 2016-08-15 17:57 | PCM.PNPSY ---
Subjective Date of Service Aug 15, 2016 Subjective The patient reported severe constipation and declined Metamucil. The patient was agreeable to Colace with a backup suppository. The patient reported ongoing pain and discomfort with Depakote and wanted to switch to another medication. We had previously discussed Trileptal and discussed with the patient the possibility of cytochrome 3 A4 induction and need for increasing of aripiprazole dose. She was also given a complete handout on the medication including all potential side effects. She was also informed of the possibility of hyponatremia and the need for ongoing medical monitoring for sodium. The patient stated that she wished to start this medication this evening. Sleep: 0hr Appetite: "Too hungry " Suicidal and homicidal ideation: denies Auditory hallucinations: denies Visual hallucinations: denies Other Psychotic Symptoms: denies Anxiety/Depression: Regarding long hospital stay Current Medications Current Medications Triamcinolone Acetonide 1 applic [facility] [id number] Last administered on 08/14/16t 17:37; Admin Dose 1 APPLIC; Start 08/13/16 at 22:00 Mental Status Exam Appearance: Neat/well groomed Attitude: Pleasant (generally), Cooperative Behavior: No unusual behavior, Tearful Affect: Labile (midly) Mood: Dysthymic Thought Process/Associations: Logical/Sequential, Goal Directed Speech Production: Normal Speech Rate: Normal Speech Articulation: Normal Thought Content: Negativistic, Somatic preoccupation, Suspicious, Perseveration Danger to Self/Suicidal Ideati: None Danger to Others: None Delusions: Paranoid (mild regarding some security officers), Somatic (Endorses) Hallucinations: Auditory (Denies), Visual (Denies) Consciousness: Alert Orientation: Person, Place, Date, Situation Memory: Grossly Intact Estimate Intellectual Function: Average Basis for IQ estimate: Word use/vocabulary Attention/Concentration & Cogn: Impaired Insight: Limited Judgement: Limited Result Diagram: 08/15/16 1000 08/15/16 1000 Mental Health Plan The patient is a 56-year-old female with a recent psychiatric hospitalization at the [facility] (admitted 05/01/2016 and discharged on 05/19/2016). The patient had been discharged to [facility], but she had been unable to follow expectations and was demonstrating symptoms of decompensation. On admission, she presented with multiple symptoms of bipolar disorder with psychosis including distractibility, pressured speech, racing thoughts, grandiose and paranoid delusions, increased activity, and poor interpersonal boundaries with impaired judgment and insight. The patient was admitted on a revocation of a less restrictive order following failure to comply with her less restrictive order. She has been tried on a number of medications but previously stabilized on a combination of aripiprazole 20 mg daily and Depakote 750 mg. The patient refused Depakote and later the patient began refusing both Abilify Maintena and aripiprazole oral more than 10 mg daily. As the patient was subtherapeutic on 400 mg and had previously required at least 20 mg daily this would likely not improved her situation. Received outside records from [facility] from where she was admitted on a revocation of a LRO on 06/19/2000 after stopping her medication, began acting bizarrely, frightening her and children. She also had charges after driving a car across a neighbors lawn and harassing police officers allegedly at their homes. She was diagnosed with Schizophrenia, Chronic paranoid type and was admitted on quetiapine 600mg and levothyroxine 0.175mg. She was tried on olanzapine as she had been prescribed this on a previous admission but had not been effective, was discontinued and changed to risperidone 6mg with quetiapine.600mg. She was noted to be uncooperative with medication, but not assaultive and did not require seclusion or restraint. Patient continues to be delusional but since refusing Abilify Maintena now reports she will take oral aripiprazole but only 10mg. The patient continues to report "allergies" to other medications due to weight gain and is refusing to take them. She had consistently refused Depakote for this reason. She has also refused, Trileptal, quetiapine, olanzapine, haloperidol, lithium and others for similar reasons. The patient has reported a number of physical ailments such as cracked hands which she reports are a side effect of all of medications, rather than her constant cleaning. Her aripiprazole level was 130 ng/mL with a therapeutic range typically an 150-300 ng/mL and typical lowest level of side effects between 110-249 ng/mL. The patient was quite agitated and delusional since receiving paperwork that a compelled medication hearing has been scheduled and has been generally hostile to this consumer loan underwriter. As the patient is on a 180 day order, the court order was required for ongoing involuntary treatment. The patient received an extension to allow for an outside expert. The patient has subsequently had court and was ordered to comply with treatment including haloperidol and divalproex. The patient had spent a prolonged period of time in seclusion but appears to finally be stabilizing. The patient still shows limited insight and is wanting to discontinue Depakote but is remaining medication adherent awaiting alternate treatment. The patient is tolerating aripiprazole 15mg, but continues to attribute side effects to Depakote. Discussed outside dental and need to discuss with CHAPLAIN. The patient appears to stabilize sufficiently if this is maintained to be transported with master deputy sheriff court security. Free T4 elevated, TSH normal. Discussed switching to Trileptal with a target dose of 600 mg twice daily with the possibility of needing to increase aripiprazole. This was all discussed with patient and she agreed to treatment. [place] I. Bipolar disorder, manic, with psychotic features, Posttraumatic stress disorder, Polysubstance use disorder, in early remission. [place] II. Deferred. [place] III. Hypertension, Insulin-dependent diabetes mellitus, hypothyroidism, and obesity, recent fall. [place] IV. Unknown. [place] V. Current Global Assessment of Functioning is 30 Medications Aripiprazole 15mg daily hold Abilify Maintena 400 mg IM monthly, 1st given April 26, 2016, last given on 06/25/16, next due on 07/26/2016, declined Trileptal 300 mg twice daily. Haldol 5mg nightly x1 then dc Benadryl 50 mg by mouth or IM twice a day Ativan 2 mg by mouth or IM at bedtime Lorazepam 1mg q4hrs as needed. Atorvastatin 40 mg daily. Albuterol metered dose inhaler as needed. Diphenhydramine 50 mg by mouth every 6 hours when necessary itching/cogwheeling/ EPS Glipizide 10 mg twice daily Ibuprofen 800 mg three times a day as needed. Levothyroxine 200 mcg daily. Lisinopril 5 mg daily Metformin 1000 mg twice daily Methocarbamol 750 mg by mouth 4 times a day when necessary cramping Pantoprazole 40 mg daily. vitamin. Treatments 1. The patient is admitted to the inpatient unit and will be provided a safe and secure environment. 2. The patient is denying current active suicidality and is not in need of a one-to-one at this time. 3. The patient is encouraged to participate with group and milieu activities. 4. The patient will be seen by the treatment team on a daily basis to assess symptoms, side effects and response to treatment. 5. The patient received medication override for treatment. 6. Prolactin level drawn due to report of and prolonged use of antipsychotics, was found to be low, patient may warrant outpatient mammogram. If symptoms worsen consider ultrasound. 7. Will review with nursing checking blood sugar at night and snack if indicated. 8. Continue aripiprazole 15mg daily 9. Discontinue Depakote and start Trileptal 300 mg twice daily 10. Colace 200 mg twice daily with Dulcolax suppository 11. Refer to podiatry for follow-up 12. Await follow-up from risk management/CHAPLAIN regarding dental appointment. Jez Stephens MD Aug 15, 2016 17:57
--- NOTE | 2016-08-15 18:35 | NUR ---
Nursin to 1900 O:Malu was exhausted this morning, not having slept at all last night. She complained of "pain all over". At 0825, received PRN NOrco tab 2 at 0825, robaxin 750 mg and Ativan 1 mg. Slept very briefly following. Complained of constipation and received MOM 30 ml. Early in shift, she made statements about not needing or wanting to take Depakote. At about 1800, she told financial underwriter, "I know that the medications are helping my mind. I just can't be hurting like this." Pt's Lunesta ordered by Dr Stephens and Jen, PACT worker who saw Malu today, took the prescription so that PACT can work on getting that filled for pt. Malu slept for 2 hours outside on patio this afternoon and stated that she felt better after. A: Behavior remained in control today. Pain not well controlled. Insomnia. P: Continue to observe for med effects.
--- NOTE | 2016-08-15 19:10 | NUR ---
Observations [id number] Pt discussed new medication with this clinical writer, hoping that it helps. Pt continues to discuss discharge, stating she really wants to leave. Pt active on unit, pacing and participating in unit activities. Pt friendly with peers and staff, spent time on patio sun tanning. Pt attended all meals, eating 100%. Pt observed every 15 minutes of shift as directed.
[2016-08-15] MEDS: LORazepam 2 mg Tablet PO SCH (20:53)
[2016-08-15] MEDS: OXcarbazepine 300 mg Tablet PO SCH (20:53)
--- NOTE | 2016-08-16 05:03 | NUR ---
Nursing Noc "I've got to get off this new med its making me hurt all over, maybe its still the Depakote, I don't know." "Can I have something for sleep or pain. Medicated for same and blood sugar checked with result of 51. Four peanut butters, four jellies, two pieces of whole wheat bread and one carton of milk requested and consumed by patient. Pt back to bed and remained sleeping throughout the night. Continuing to monitor with Q15 minute safety checks. Monitoring mood, behavior, emotional state and sleep quality and quantity. CP
[2016-08-16] MEDS: Pantoprazole 40 mg ER24 Tablet PO SCH (07:49)
[2016-08-16] MEDS: diphenhydrAMINE 50 mg Capsule PO SCH ×2 (07:51→21:54)
[2016-08-16] MEDS: OXcarbazepine 300 mg Tablet PO SCH ×2 (07:51→21:54)
[2016-08-16] MEDS: [UNRECOGNIZED DRUG - OTHER] MUC_MEMBRM SCH ×4 (08:00→22:00)
[2016-08-16] MEDS: TRIAMCINOLONE 0.1% MUC_MEMBRM SCH ×4 (08:00→22:00)
[2016-08-16] MEDS: Magnesium Hydroxide 10 mL Oral Concentration PO PRN (08:30)
[2016-08-16 10:31] VITALS: BP 131/82; PULSE 73; RESP 16
--- NOTE | 2016-08-16 13:08 | NUR ---
Nursing Note [id number] Behavior S/O: Pt took all medications this morning. She stated, "I hate that fucking stuff [Trileptal]. It makes me fall asleep....It [ibuprofen] helped. Now me right hip is hurting. I sat too long. They fucked me up in seclusion when they strapped my legs down." Pt c/o tooth pain this morning & was irritated that she couldn't get it fixed while on the unit. Pt has been pacing in halls trying to exercise. Pt c/o constipation this morning. MOM given. A: Pt has little insight into how her behavior has impacted her medical problems. P: Provide supportive environment. Monitor medications & effects.
[2016-08-16] MEDS: LORazepam 1 mg Tablet PO PRN (14:41)
--- NOTE | 2016-08-16 17:46 | NUR ---
[facility] Day Shift Pt affect and behavior mostly unchanged from previous shifts. Pt maintained behavioral control throughout the shift. Pt affect appears mostly manic, but much less so than noted on previous shifts. Pt continues to spend most of the shift engaging in unit activities and interacting with peers throughout the shift. Pt is mostly appropriate with staff and peers when active on the unit, but remains somewhat intrusive. Pt continues to ruminate on past trauma and frequently relays the same stories of her past throughout the shift. Pt attended community meeting and all group activities. Pt attended all meals and ate approx 80% of all meals.
--- NOTE | 2016-08-16 19:29 | NUR ---
manpower development specialist manager/Counselor: S: "I'm having fun throwing the football." O: Patient slept 7 hours last night per staff. Patient denies S/I and H/I. She also denies auditory and visual hallucinations. She denies depression and anxiety, but is missing her children and grandchildren. A: Patient is cooperative, anxious, distactible, guarded, flat affect, irritable, grandiose, limited insight, poor judgment. P: Follow care plan, coordinate with out-patient providers.
[2016-08-16] MEDS: HYDROcodone-APAP 5-325 mg Tablet PO PRN (21:57)
[2016-08-16] MEDS: LORazepam 2 mg Tablet PO SCH (21:57)
--- NOTE | 2016-08-16 22:35 | NUR ---
NURSING NOTE [id number] Mood: "depressed, I'm paying $1500 a month in SSI just for you guys to get richer" Affect: labile; pleasant at times and other times sullen with paranoia and negativity over her medications and her length of stay here Behavior: pacing the halls at start of shift wearing her knee brace (R knee appears swollen compared to L). Pt. laid out on the patio suntanning herself. FSBS @ 17:30= 115. She took a shower. She had a one-time dose of Mag citrate ordered, however, pt. refused it as she reported she had just had a BM this afternoon and no longer needed it. Thought processes: paranoid at times, continues to have poor insight and does not believe she needs to be here or take medications. Pt. endorsed depression tonight and related it to her knee and hip pain as well as being here on the unit "that's taking all of our money!"
--- NOTE | 2016-08-16 23:46 | PCM.PNPSY ---
Subjective Date of Service Aug 16, 2016 Subjective The patient reported excess sedation during the morning and was agreeable to moving Trileptal to pm. Patient reported that Trileptal appears to be improving her thinking and "her brain." Patient reports ongoing constipation and indicates that this is the root of her previous belief that she was . She denies other side effects. Still irritable about the length of hospitalization. Sleep: 7 hours Appetite: good Suicidal and homicidal ideation: denies Auditory hallucinations:denies Visual hallucinations: denies Other Psychotic Symptoms: see above Anxiety/Depression: denies outside of wanting to return to the community. Current Medications Current Medications Docusate Sodium 200 mg BID PO Last administered on 08/16/16 21:57; Admin Dose 200 MG; Start 08/15/16 at 20:30 Oxcarbazepine 300 mg BID PO Last administered on 08/16/16 21:54; Admin Dose 300 MG; Start 08/15/16 at 20:30; Stop 08/16/16 at 22:00; Status DC Mental Status Exam Appearance: Neat/well groomed Attitude: Pleasant (generally), Cooperative Behavior: No unusual behavior, Tearful Affect: Labile (midly) Mood: Dysthymic Thought Process/Associations: Logical/Sequential, Goal Directed Speech Production: Normal Speech Rate: Normal Speech Articulation: Normal Thought Content: Negativistic, Somatic preoccupation, Suspicious, Perseveration Danger to Self/Suicidal Ideati: None Danger to Others: None Delusions: Paranoid (mild regarding some security officers), Somatic (Endorses) Hallucinations: Auditory (Denies), Visual (Denies) Consciousness: Alert Orientation: Person, Place, Date, Situation Memory: Grossly Intact Estimate Intellectual Function: Average Basis for IQ estimate: Word use/vocabulary Attention/Concentration & Cogn: Impaired Insight: Limited Judgement: Limited Result Diagram: 08/15/16 1000 08/15/16 1000 Mental Health Plan The patient is a 56-year-old female with a recent psychiatric hospitalization at the [facility] (admitted 05/01/2016 and discharged on 05/19/2016). The patient had been discharged to [facility], but she had been unable to follow expectations and was demonstrating symptoms of decompensation. On admission, she presented with multiple symptoms of bipolar disorder with psychosis including distractibility, pressured speech, racing thoughts, grandiose and paranoid delusions, increased activity, and poor interpersonal boundaries with impaired judgment and insight. The patient was admitted on a revocation of a less restrictive order following failure to comply with her less restrictive order. She has been tried on a number of medications but previously stabilized on a combination of aripiprazole 20 mg daily and Depakote 750 mg. The patient refused Depakote and later the patient began refusing both Abilify Maintena and aripiprazole oral more than 10 mg daily. As the patient was subtherapeutic on 400 mg and had previously required at least 20 mg daily this would likely not improved her situation. Received outside records from [facility] from where she was admitted on a revocation of a LRO on 06/19/2000 after stopping her medication, began acting bizarrely, frightening her and children. She also had charges after driving a car across a neighbors lawn and harassing police officers allegedly at their homes. She was diagnosed with Schizophrenia, Chronic paranoid type and was admitted on quetiapine 600mg and levothyroxine 0.175mg. She was tried on olanzapine as she had been prescribed this on a previous admission but had not been effective, was discontinued and changed to risperidone 6mg with quetiapine.600mg. She was noted to be uncooperative with medication, but not assaultive and did not require seclusion or restraint. Patient continues to be delusional but since refusing Abilify Maintena now reports she will take oral aripiprazole but only 10mg. The patient continues to report "allergies" to other medications due to weight gain and is refusing to take them. She had consistently refused Depakote for this reason. She has also refused, Trileptal, quetiapine, olanzapine, haloperidol, lithium and others for similar reasons. The patient has reported a number of physical ailments such as cracked hands which she reports are a side effect of all of medications, rather than her constant cleaning. Her aripiprazole level was 130 ng/mL with a therapeutic range typically an 150-300 ng/mL and typical lowest level of side effects between 110-249 ng/mL. The patient was quite agitated and delusional since receiving paperwork that a compelled medication hearing has been scheduled and has been generally hostile to this commercial insurance underwriter. As the patient is on a 180 day order, the court order was required for ongoing involuntary treatment. The patient received an extension to allow for an outside expert. The patient has subsequently had court and was ordered to comply with treatment including haloperidol and divalproex. The patient had spent a prolonged period of time in seclusion but appears to finally be stabilizing. The patient is tolerating aripiprazole 15mg, but continues to attribute side effects to Depakote and so was switched to Trileptal. Patient reports significant improvement over Depakote. Discussed outside dental and IMPLANT POLISHER and unit controller are working on implementation. The patient appears to stabilize sufficiently if this is maintained to be transported with home security professional. Free T4 elevated, TSH normal. Sedation from Trileptal so will switch to HS dosing. Patient will be offered magnesium citrate for constipation. [place] I. Bipolar disorder, manic, with psychotic features, Posttraumatic stress disorder, Polysubstance use disorder, in early remission. [place] II. Deferred. [place] III. Hypertension, Insulin-dependent diabetes mellitus, hypothyroidism, and obesity, recent fall. [place] IV. Unknown. [place] V. Current Global Assessment of Functioning is 30 Medications Aripiprazole 15mg daily hold Abilify Maintena 400 mg IM monthly, 1st given April 26, 2016, last given on 06/25/16, next due on 07/26/2016, declined Trileptal 300 mg twice daily switch to 600mg nightly Benadryl 50 mg by mouth or IM twice a day Ativan 2 mg by mouth or IM at bedtime Lorazepam 1mg q4hrs as needed. Atorvastatin 40 mg daily. Albuterol metered dose inhaler as needed. Diphenhydramine 50 mg by mouth every 6 hours when necessary itching/cogwheeling/ EPS Glipizide 10 mg twice daily Ibuprofen 800 mg three times a day as needed. Levothyroxine 200 mcg daily. Lisinopril 5 mg daily Metformin 1000 mg twice daily Methocarbamol 750 mg by mouth 4 times a day when necessary cramping Pantoprazole 40 mg daily. vitamin. Treatments 1. The patient is admitted to the inpatient unit and will be provided a safe and secure environment. 2. The patient is denying current active suicidality and is not in need of a one-to-one at this time. 3. The patient is encouraged to participate with group and milieu activities. 4. The patient will be seen by the treatment team on a daily basis to assess symptoms, side effects and response to treatment. 5. The patient received medication override for treatment. 6. Prolactin level drawn due to report of and prolonged use of antipsychotics, was found to be low, patient may warrant outpatient mammogram. If symptoms worsen consider ultrasound. 7. Will review with nursing checking blood sugar at night and snack if indicated. 8. Continue aripiprazole 15mg daily 9. Switch Trileptal to 600mg nightly 10. Colace 200 mg twice daily with Dulcolax suppository, magnesium citrate x 1 11. Refer to podiatry for follow-up 12. Await follow-up from risk management/IMPLANT POLISHER regarding dental appointment. Jez Stephens MD Aug 16, 2016 23:46
--- NOTE | 2016-08-17 05:15 | NUR ---
nursing, nights, 11-7 s- long time no see. how is your friend. can i ahve a hot pack ? thanks i'm going back to bed. o- has appeared to sleep after [id number], [id number], and after 0445. assessed q 15 minutes. a- interupted sleep, no apparent distress. p- monitor behavior/emotional state, quality, times and amount of sleep, use and effect of medication. yolanda
[2016-08-17] MEDS: diphenhydrAMINE 50 mg Capsule PO SCH ×2 (07:54→22:27)
[2016-08-17] MEDS: Pantoprazole 40 mg ER24 Tablet PO SCH (07:54)
[2016-08-17] MEDS: [UNRECOGNIZED DRUG - OTHER] MUC_MEMBRM SCH ×4 (07:55→22:00)
[2016-08-17] MEDS: TRIAMCINOLONE 0.1% MUC_MEMBRM SCH ×4 (07:55→22:00)
[2016-08-17] MEDS: Magnesium Hydroxide 10 mL Oral Concentration PO PRN (09:19)
[2016-08-17] MEDS: HYDROcodone-APAP 5-325 mg Tablet PO PRN ×2 (12:42→14:36)
--- NOTE | 2016-08-17 14:02 | NUR ---
Nursing Note [id number] Behavior S/O: Pt out in milieu most of the day. Pt mildly intrusive with others telling them what side effects of medications are. She is able to be redirected. Pt attended groups. Pacing on unit d/t fear of weight gain. Pt states, "I've gained a lot of weight since I've been here. My doctor is going to be upset with you guys." Pt took am medications as ordered. She states, "I'm worried the Trileptal will make me over sedated." A: Pt is unhappy with current medication regime. P: Provide supportive environment. Monitor medications & effects.
[2016-08-17 17:19] VITALS: BP 138/73; PULSE 69; RESP 16
--- NOTE | 2016-08-17 19:04 | NUR ---
manager business development hospice/Counselor: S: "I need to get out of here." O: Patient only slept 3.25 hours last night per staff. Patient denies S/I and H/I. She also denies auditory and visual hallucinations. Depression is 1/10 and anxiety is 0/10. A: Patient is cooperative, anxious, distactible, guarded, flat affect, irritable, grandiose, limited insight, poor judgment. P: Follow care plan, coordinate with out-patient providers.
[2016-08-17] MEDS ORDERED: OXcarbazepine 300 mg Tablet PO SCH (21:00)
--- NOTE | 2016-08-17 21:57 | NUR ---
NURS MED NOTE Withheld PM docusate sodium, pt reports loose stools throughout the day.
[2016-08-17] MEDS: LORazepam 2 mg Tablet PO SCH (22:30)
--- NOTE | 2016-08-17 22:51 | NUR ---
NURS NOTE EVENING Mood: "I'm depressed about being stuck in here." Endorses depression, declined to rate. Denies anxiety. Affect: Labile. Behavior: Pt walking halls much of shift. Interacting with peers. Currently showering. Thought Content/Process: "Crazier people than me have been discharged. The doctors don't know what they are doing." Linear. Rapid, pressured speech. PRN/NURS Notes: Pt endorses withheld scheduled PM docusate sodium.
--- NOTE | 2016-08-17 23:29 | PCM.PNPSY ---
Subjective Date of Service Aug 17, 2016 Subjective The patient reports that Trileptal was helpful with improving thinking and mood but she noticed a rash on her lower leg. Rash is erythematous and consistent with drug rash rather than contact dermatitis. Patient declined taking a lower dose and instead proposed taking quetiapine. She stated that she was on Abilify and quetiapine 200mg at [facility] however records indicate monotherapy with quetiapine 600mg po nightly. It is possible she had medication changes while in [facility]. Counselor found program in [place], but patient has concerns about being there away from family. The patient reports constipation has responded to MOM and did not need to use mag citrate. Sleep: 6.25 hours Appetite: good Suicidal and homicidal ideation: denies Auditory hallucinations:denies Visual hallucinations: denies Other Psychotic Symptoms: see above Anxiety/Depression: "okay" but concerned about family. Current Medications Current Medications Quetiapine Fumarate 100 mg HS ONCE PO Last administered on 08/17/16t 22:33; Admin Dose 100 MG; Start 08/17/16 at 21:00; Stop 08/17/16 at 21:01; Status DC Mental Status Exam Vital Signs Vital Signs Date Time Temp Pulse Resp B/P Pulse Ox O2 Delivery O2 Flow Rate FiO2 08/17/16 17:19 36.5 69 16 138/73 Appearance: Neat/well groomed Attitude: Pleasant (generally), Cooperative Behavior: No unusual behavior, Tearful Affect: Labile (midly) Mood: Dysthymic Thought Process/Associations: Logical/Sequential, Goal Directed Speech Production: Normal Speech Rate: Normal Speech Articulation: Normal Thought Content: Negativistic, Somatic preoccupation, Suspicious, Perseveration Danger to Self/Suicidal Ideati: None Danger to Others: None Delusions: Paranoid (mild regarding some security officers), Somatic (Endorses) Hallucinations: Auditory (Denies), Visual (Denies) Consciousness: Alert Orientation: Person, Place, Date, Situation Memory: Grossly Intact Estimate Intellectual Function: Average Basis for IQ estimate: Word use/vocabulary Attention/Concentration & Cogn: Impaired Insight: Limited Judgement: Limited Result Diagram: 08/15/16 1000 08/15/16 1000 Mental Health Plan The patient is a 56-year-old female with a recent psychiatric hospitalization at the [facility] (admitted 05/01/2016 and discharged on 05/19/2016). The patient had been discharged to [facility], but she had been unable to follow expectations and was demonstrating symptoms of decompensation. On admission, she presented with multiple symptoms of bipolar disorder with psychosis including distractibility, pressured speech, racing thoughts, grandiose and paranoid delusions, increased activity, and poor interpersonal boundaries with impaired judgment and insight. The patient was admitted on a revocation of a less restrictive order following failure to comply with her less restrictive order. She has been tried on a number of medications but previously stabilized on a combination of aripiprazole 20 mg daily and Depakote 750 mg. The patient refused Depakote and later the patient began refusing both Abilify Maintena and aripiprazole oral more than 10 mg daily. As the patient was subtherapeutic on 400 mg and had previously required at least 20 mg daily this would likely not improved her situation. Received outside records from [facility] from where she was admitted on a revocation of a LRO on 06/19/2000 after stopping her medication, began acting bizarrely, frightening her and children. She also had charges after driving a car across a [employer] lawn and harassing police officers allegedly at their homes. She was diagnosed with Schizophrenia, Chronic paranoid type and was admitted on quetiapine 600mg and levothyroxine 0.175mg. She was tried on olanzapine as she had been prescribed this on a previous admission but had not been effective, was discontinued and changed to risperidone 6mg with quetiapine.600mg. She was noted to be uncooperative with medication, but not assaultive and did not require seclusion or restraint. Patient continues to be delusional but since refusing Abilify Maintena now reports she will take oral aripiprazole but only 10mg. The patient continues to report "allergies" to other medications due to weight gain and is refusing to take them. She had consistently refused Depakote for this reason. She has also refused, Trileptal, quetiapine, olanzapine, haloperidol, lithium and others for similar reasons. The patient has reported a number of physical ailments such as cracked hands which she reports are a side effect of all of medications, rather than her constant cleaning. Her aripiprazole level was 130 ng/mL with a therapeutic range typically an 150-300 ng/mL and typical lowest level of side effects between 110-249 ng/mL. The patient was quite agitated and delusional since receiving paperwork that a compelled medication hearing has been scheduled and has been generally hostile to this mortgage underwriter. As the patient is on a 180 day order, the court order was required for ongoing involuntary treatment. The patient received an extension to allow for an outside expert. The patient has subsequently had court and was ordered to comply with treatment including haloperidol and divalproex. The patient had spent a prolonged period of time in seclusion but appears to finally be stabilizing. The patient still shows limited insight and is wanting to discontinue Depakote but is remaining medication adherent awaiting alternate treatment. The patient is tolerating aripiprazole 15mg, but continues to attribute side effects to Depakote. Discussed outside dental and need to discuss with [employer] TR[employer] MACHINE SETTER. The patient appears to stabilize sufficiently if this is maintained to be transported with security clerk. Free T4 elevated, TSH normal. Discussed switching to Trileptal with a target dose of 600 mg twice daily with the possibility of needing to increase aripiprazole. This was all discussed with patient and she agreed to treatment. Trileptal appears to have been effective, but the patient developed waht appears to be a drug rash on her right lower leg. Patient declined lower dose but proposed restart of quetiapine. Wagram Wagram I. Bipolar disorder, manic, with psychotic features, Posttraumatic stress disorder, Polysubstance use disorder, in early remission. [place] II. Deferred. [place]agram III. Hypertension, Insulin-dependent diabetes mellitus, hypothyroidism, and obesity, recent fall. Wagram IV. Unknown. Wagram V. Current Global Assessment of Functioning is 35 Medications Aripiprazole 15mg daily hold Abilify Maintena 400 mg IM monthly, 1st given April 26, 2016, last given on 06/25/16, next due on 07/26/2016, declined Quetiapine 100mg tonight then 200mg nightly thereafter Haldol 5mg nightly x1 then dc Benadryl 50 mg by mouth or IM twice a day Ativan 2 mg by mouth or IM at bedtime Lorazepam 1mg q4hrs as needed. Atorvastatin 40 mg daily. Albuterol metered dose inhaler as needed. Diphenhydramine 50 mg by mouth every 6 hours when necessary itching/cogwheeling/ EPS Glipizide 10 mg twice daily Ibuprofen 800 mg three times a day as needed. Levothyroxine 200 mcg daily. Lisinopril 5 mg daily Metformin 1000 mg twice daily Methocarbamol 750 mg by mouth 4 times a day when necessary cramping Pantoprazole 40 mg daily. vitamin. Treatments 1. The patient is admitted to the inpatient unit and will be provided a safe and secure environment. 2. The patient is denying current active suicidality and is not in need of a one-to-one at this time. 3. The patient is encouraged to participate with group and milieu activities. 4. The patient will be seen by the treatment team on a daily basis to assess symptoms, side effects and response to treatment. 5. The patient received medication override for treatment. 6. Prolactin level drawn due to report of and prolonged use of antipsychotics, was found to be low, patient may warrant outpatient mammogram. If symptoms worsen consider ultrasound. 7. Will review with nursing checking blood sugar at night and snack if indicated. 8. Continue aripiprazole 15mg daily 9. DC Trileptal, start quetiapine 100mg x1 then 200mg nightly thereafter. 10. Colace 200 mg twice daily with Dulcolax suppository, magnesium citrate x 1 11. Refer to podiatry for follow-up 12. Await follow-up from risk management/BRUSH TRIMMING MACHINE SETTER regarding dental appointment. Jez Stephens MD Aug 17, 2016 23:29
--- NOTE | 2016-08-18 01:41 | NUR ---
nursing, nights, 11-7 s- i can read that from here. my eye is bionic. shop till you drop. bring in the beef. we're in [place] now. can you get me some string cheese ? then i want my sugar checked. i've been sleeping so i'm fine. now i'm up. o- has appeared to sleep after 0015. up 0125 with above rambling statements. blood sugar is 104. continues with tangential rambling commentary about her car being repossessed and recent job offers. assessed q 15 minutes. a- somewhat manic in presentation, pleasant demeanor, flight of ideas, no apparent physical distress. p- monitor behavior/emotional state, quality, times and amount of sleep, use and effect of medication. yolanda Addendum: 08/18/16 at 0555 by NIALL PORTILLO RN slept after [id number] and is currently socializing with the other patients who are awake. yolanda
--- NOTE | 2016-08-18 06:39 | NUR ---
OBSERVATIONS Pt was mostly pleasant and cooperative throughout the shift. During evening group, pt perseverated on negative past experiences and was moderately challenging to redirect. Pt stated that she met all of her goals for the day but that she had "a total shit day" because of the "unfairness and mistreatment" she has suffered at the hands of the doctors on the unit. Pt rated her mood 7-8/10. Pt slept very little and was restless throughout the night. Maintained Q15 safety checks as directed.
[2016-08-18] MEDS: Pantoprazole 40 mg ER24 Tablet PO SCH (07:42)
[2016-08-18] MEDS: diphenhydrAMINE 50 mg Capsule PO SCH ×2 (08:07→21:48)
[2016-08-18] MEDS: TRIAMCINOLONE 0.1% MUC_MEMBRM SCH ×4 (08:16→21:49)
[2016-08-18] MEDS: [UNRECOGNIZED DRUG - OTHER] MUC_MEMBRM SCH ×4 (08:16→21:49)
[2016-08-18 10:09] VITALS: BP 168/91; PULSE 76; RESP 16
--- NOTE | 2016-08-18 12:19 | NUR ---
NURSING DAYS 7-7 S-"I have got a plan and I am going to get out of this place" . "I have talked to PACT team and they going to make me a peer counselor, I have the application and everything" Patient c/o tooth pain. O- Patient had court today, will have intake from [facility] on Sunday. Denies pain, constipation, and SI. A- Nurse encourage patient to follow thorough on outpatient housing and peer counselor opportunities, and that moving from [place] may be stressful but could be a good idea. Plan per SW to escort patient to dental services.
[2016-08-18] MEDS: LORazepam 1 mg Tablet PO PRN (15:04)
--- NOTE | 2016-08-18 18:56 | NUR ---
[facility] Day Shift Pt affect and behavior mostly unchanged from previous shifts. Pt maintained behavioral control throughout the shift. Pt affect appears mostly manic, more so than noted on previous shift. Pt continues to spend most of the shift engaging in unit activities and interacting with peers throughout the shift. Pt is mostly appropriate with staff and peers when active on the unit, but remains somewhat intrusive. Pt continues to ruminate on past trauma and frequently relays the same stories of her past throughout the shift. Pt attended community meeting and all group activities. Pt attended all meals and ate approx 100% of all meals.
--- NOTE | 2016-08-18 18:58 | PCM.PNPSY ---
Subjective Date of Service Aug 18, 2016 Subjective The patient reports that quetiapine was helpful last night and she is feeling more organized today. Patient reports being concerned about return of weight. Patient reported she was on Abilify and Seroquel at [facility] and attempts to inform her that according to the DC summary she was on 600mg quetiapine only resulted in the patient becoming more irritated. She again quickly calmed. Rash on leg still present but not spreading and appears flat and less red. No other side effect reports. Patient reports constipation resolved. Patient reports urination returned to normal and patient informed that UA was negative. Per counselor, patient may be expected to housing program in [place]. Sleep: 3.5 hours. Appetite: good Suicidal and homicidal ideation: denies Auditory hallucinations: denies Visual hallucinations: denies Other Psychotic Symptoms: less delusional but still somewhat paranoid and focused on weight gain. Anxiety/Depression: "about missing my family" Current Medications Current Medications Quetiapine Fumarate 100 mg HS ONCE PO Last administered on 08/17/16t 22:33; Admin Dose 100 MG; Start 08/17/16 at 21:00; Stop 08/17/16 at 21:01; Status DC Mental Status Exam Appearance: Neat/well groomed Attitude: Pleasant (generally), Cooperative Behavior: No unusual behavior Affect: Well Modulated/Appropriate, Labile (midly) Mood: Dysthymic Thought Process/Associations: Logical/Sequential, Goal Directed Speech Production: Normal Speech Rate: Normal Speech Articulation: Normal Thought Content: Negativistic, Somatic preoccupation, Suspicious, Perseveration Danger to Self/Suicidal Ideati: None Danger to Others: None Delusions: Paranoid (mild regarding security officers and safety at [facility]), Somatic (Endorses) Hallucinations: Auditory (Denies), Visual (Denies) Consciousness: Alert Orientation: Person, Place, Date, Situation Memory: Grossly Intact Estimate Intellectual Function: Average Basis for IQ estimate: Word use/vocabulary Attention/Concentration & Cogn: Impaired Insight: Limited Judgement: Limited Result Diagram: 08/15/16 1000 08/15/16 1000 Mental Health Plan The patient is a 56-year-old female with a recent psychiatric hospitalization at the [facility] (admitted 05/01/2016 and discharged on 05/19/2016). The patient had been discharged to [facility], but she had been unable to follow expectations and was demonstrating symptoms of decompensation. On admission, she presented with multiple symptoms of bipolar disorder with psychosis including distractibility, pressured speech, racing thoughts, grandiose and paranoid delusions, increased activity, and poor interpersonal boundaries with impaired judgment and insight. The patient was admitted on a revocation of a less restrictive order following failure to comply with her less restrictive order. She has been tried on a number of medications but previously stabilized on a combination of aripiprazole 20 mg daily and Depakote 750 mg. The patient refused Depakote and later the patient began refusing both Abilify Maintena and aripiprazole oral more than 10 mg daily. As the patient was subtherapeutic on 400 mg and had previously required at least 20 mg daily this would likely not improved her situation. Received outside records from [facility] from where she was admitted on a revocation of a LRO on 06/19/2000 after stopping her medication, began acting bizarrely, frightening her and children. She also had charges after driving a car across a neighbors lawn and harassing police officers allegedly at their homes. She was diagnosed with Schizophrenia, Chronic paranoid type and was admitted on quetiapine 600mg and levothyroxine 0.175mg. She was tried on olanzapine as she had been prescribed this on a previous admission but had not been effective, was discontinued and changed to risperidone 6mg with quetiapine.600mg. She was noted to be uncooperative with medication, but not assaultive and did not require seclusion or restraint. Patient continues to be delusional but since refusing Abilify Maintena now reports she will take oral aripiprazole but only 10mg. The patient continues to report "allergies" to other medications due to weight gain and is refusing to take them. She had consistently refused Depakote for this reason. She has also refused, Trileptal, quetiapine, olanzapine, haloperidol, lithium and others for similar reasons. The patient has reported a number of physical ailments such as cracked hands which she reports are a side effect of all of medications, rather than her constant cleaning. Her aripiprazole level was 130 ng/mL with a therapeutic range typically an 150-300 ng/mL and typical lowest level of side effects between 110-249 ng/mL. The patient was quite agitated and delusional since receiving paperwork that a compelled medication hearing has been scheduled and has been generally hostile to this promotion writer. As the patient is on a 180 day order, the court order was required for ongoing involuntary treatment. The patient received an extension to allow for an outside expert. The patient has subsequently had court and was ordered to comply with treatment including haloperidol and divalproex. The patient had spent a prolonged period of time in seclusion but appears to finally be stabilizing. After consistently reporting that Depakote caused body aches and she ultimately would not take it on discharge, she agreed to Trileptal. The patient responded well to Trileptal but developed a skin rash on leg and lower abdomen necessitating discontinuation. She was agreeable to switched to quetiapine at her request and appears, at least early in this trial, to be responding to her current dose of aripiprazole 15mg daily Discussed outside dental appointment with team and [employer]FFEE WEIGHER and are still trying to arrange visit. Free T4 elevated, TSH normal. Patient received additional 14 days of inpatient treatment. Mounds Mounds I. Bipolar disorder, manic, with psychotic features, Posttraumatic stress disorder, Polysubstance use disorder, in early remission. Mounds II. Deferred. Mounds III. Hypertension, Insulin-dependent diabetes mellitus, hypothyroidism, and obesity, recent fall. Mounds IV. Unknown. Mounds V. Current Global Assessment of Functioning is 35 Medications Aripiprazole 15mg daily hold Abilify Maintena 400 mg IM monthly, 1st given April 26, 2016, last given on 06/25/16, next due on 07/26/2016, declined Quetiapine 200mg nightly Benadryl 50 mg by mouth or IM twice a day Ativan 2 mg by mouth or IM at bedtime Lorazepam 1mg q4hrs as needed. Atorvastatin 40 mg daily. Albuterol metered dose inhaler as needed. Diphenhydramine 50 mg by mouth every 6 hours when necessary itching/cogwheeling/ EPS Glipizide 10 mg twice daily Ibuprofen 800 mg three times a day as needed. Levothyroxine 200 mcg daily. Lisinopril 5 mg daily Metformin 1000 mg twice daily Methocarbamol 750 mg by mouth 4 times a day when necessary cramping Pantoprazole 40 mg daily. vitamin. Treatments 1. The patient is admitted to the inpatient unit and will be provided a safe and secure environment. 2. The patient is denying current active suicidality and is not in need of a one-to-one at this time. 3. The patient is encouraged to participate with group and milieu activities. 4. The patient will be seen by the treatment team on a daily basis to assess symptoms, side effects and response to treatment. 5. The patient received medication override for treatment. 6. Prolactin level drawn due to report of and prolonged use of antipsychotics, was found to be low, patient may warrant outpatient mammogram. If symptoms worsen consider ultrasound. 7. Will review with nursing checking blood sugar at night and snack if indicated. 8. Continue aripiprazole 15mg daily 9. Continue quetiapine 200mg nightly and titrate as needed. 10. Colace 200 mg twice daily with Dulcolax suppository, magnesium citrate x 1 (patient declined at present) 11. Refer to podiatry for follow-up 12. Await follow-up from risk management/COFFEE WEIGHER regarding dental appointment. 13. Possible discharge to structured housing. Jez Stephens MD Aug 18, 2016 18:58
--- NOTE | 2016-08-18 20:12 | NUR ---
technical program manager/Counselor: S: "I'm excited that I may be able to leave soon." O: Patient slept 3.5 hours last night per staff. Patient denies S/I and H/I. She also denies auditory and visual hallucinations. Depression is 0/10 and anxiety is 0/10. This insurance underwriter spoke with [facility] and faxed Intake and Referral Form, H&P, progress notes to Megha and the main office in [place]. A: Patient is cooperative, guarded, tearful, restricted affect, dysthymic, insight and judgment are unable to assess. P: Follow care plan, coordinate with out-patient providers.
[2016-08-18] MEDS: LORazepam 2 mg Tablet PO SCH (21:48)
[2016-08-18] MEDS: HYDROcodone-APAP 5-325 mg Tablet PO PRN (22:51)
--- NOTE | 2016-08-19 05:19 | NUR ---
Nursing Note Information Tech 7pm to 7am Pt awake at start of shift, visited with daughter who recently graduated from trade school. Pt was bright, smiling, and affectionate toward her daughter and expressed pride in her accomplishments. Pt took HS meds and retired to her room at aprox 2230 but did not fall asleep until 0115. Pt declined valium for sleep but received [place] 1 tab for pain 10/10 in right hip. Pt up for the day at 0400, fast walking through the unit. Pt engaged a female peer, who had gotten up to get a drink, to exercise with her. When she was asked to slow down due to the stomping noises that could be heard throughout the unit she became angry, loud and dismissed the request as You just want to take our fun away, we are not being loud. Monitored pt. with q 15 minute face checks for safety location and accountability.
[2016-08-19] MEDS: LORazepam 1 mg Tablet PO PRN ×2 (05:36→22:07)
[2016-08-19] MEDS: diphenhydrAMINE 50 mg Capsule PO PRN ×2 (06:42→17:01)
[2016-08-19] MEDS: [UNRECOGNIZED DRUG - OTHER] MUC_MEMBRM SCH ×4 (08:22→22:00)
[2016-08-19] MEDS: TRIAMCINOLONE 0.1% MUC_MEMBRM SCH ×4 (08:22→22:00)
[2016-08-19] MEDS: Pantoprazole 40 mg ER24 Tablet PO SCH (08:26)
[2016-08-19] MEDS: diphenhydrAMINE 50 mg Capsule PO SCH ×2 (08:30→22:08)
[2016-08-19 10:00] VITALS: BP 138/80; PULSE 71; RESP 18
[2016-08-19] MEDS: Magnesium Hydroxide 10 mL Oral Concentration PO PRN (10:06)
--- NOTE | 2016-08-19 15:04 | NUR ---
Nursing Dayshift: S: "How's it going sunshine care bear?" O: Patient using nicknames for staff with each one a type of "care bear". Has been bright and cheery today. Interacting well with staff and peers. Less pressured and intrusive. Eating well at meals. Has been spending the afternoon on the patio sunning herself. Attending group activities. A: Bright. Cooperative. A little calmer. P: CPOC. Monitor mood and behavior.
--- NOTE | 2016-08-19 15:32 | PCM.PNPSY ---
Subjective Date of Service Aug 19, 2016 Subjective I spent 30 minutes both reviewing treatment plan with our clinical team, interviewing the patient and providing supportive/educational psychotherapy. I spent more than 50% of the time counseling the patient. I reviewed the treatment plan with the patient and discussed options available including the potential risks, benefits and side effects. Malu reports a marked improvement in thought organization and mood stability. Staff reports that she has been active and participating well in one-to-one unit and group activities. She slept 3 hours and denies depression manic or psychotic symptoms review. Staff reports that she is markedly less intrusive and is been more appropriate on the unit. They actually described her as cordial. She is no longer talking about being . She is agreeable with the current medication regimen. She denies medication side effects and feels as if the Seroquel she is on is appropriate.. She was able to identify her medications and what they were used to treat. Current Medications Current Medications Quetiapine Fumarate 100 mg HS ONCE PO Last administered on 08/17/16 22:33; Admin Dose 100 MG; Start 08/17/16 at 21:00; Stop 08/17/16 at 21:01; Status DC Quetiapine Fumarate 200 mg HS PO Last administered on 08/18/16 21:48; Admin Dose 200 MG; Start 08/18/16 at 21:00 Mental Status Exam Appearance: Neat/well groomed Attitude: Pleasant (generally), Cooperative Behavior: No unusual behavior Affect: Well Modulated/Appropriate, Labile (midly) Mood: Dysthymic Thought Process/Associations: Logical/Sequential, Goal Directed Speech Production: Normal Speech Rate: Normal Speech Articulation: Normal Thought Content: Negativistic, Somatic preoccupation, Suspicious, Perseveration Danger to Self/Suicidal Ideati: None Danger to Others: None Delusions: Paranoid (mild regarding security officers and safety at [facility]), Somatic (Endorses) Consciousness: Alert Orientation: Person, Place, Date, Situation Memory: Grossly Intact Estimate Intellectual Function: Average Basis for IQ estimate: Word use/vocabulary Attention/Concentration & Cogn: Impaired Insight: Limited Judgement: Limited Result Diagram: 08/15/16 1000 08/15/16 1000 Mental Health Plan The patient is a 56-year-old female with a recent psychiatric hospitalization at the [facility] (admitted 05/01/2016 and discharged on 05/19/2016). The patient had been discharged to [facility], but she had been unable to follow expectations and was demonstrating symptoms of decompensation. On admission, she presented with multiple symptoms of bipolar disorder with psychosis including distractibility, pressured speech, racing thoughts, grandiose and paranoid delusions, increased activity, and poor interpersonal boundaries with impaired judgment and insight. The patient was admitted on a revocation of a less restrictive order following failure to comply with her less restrictive order. She has been tried on a number of medications but stabilized on a combination of aripiprazole 20 mg daily and Depakote 750 mg. The patient has consistently refused Depakote and so has been continued on a combination of lorazepam and aripiprazole. The patient received her first dose of Abilify Maintena 400 mg on April 26, 2016,her second dose on May 26, 2016, and third on June 25, 2016. She refused her third dose scheduled for 2016. Since that time she had been increasingly agitated and paranoid. She was experiencing symptoms of both yahaira and psychosis with paranoia and intrusive behaviors. At present staff reports a decrease in symptoms of yahaira as well as a decrease in psychotic delusional thoughts over the past 72 hours. [place] I. Bipolar disorder, manic, with psychotic features, Posttraumatic stress disorder, Polysubstance use disorder, in early remission. [place] II. Deferred. [place] III. Hypertension, Insulin-dependent diabetes mellitus, hypothyroidism, and obesity, recent fall. [place] IV. Unknown. [place] V. Current Global Assessment of Functioning is 35 Treatments Patient is being provided with a high degree of safety through our unit structure and active adult engagement provided by our mental health professionals, mental health technicians, psychiatric nurses and myself. We are focusing on developing improved coping skills and identifying stressors that may have led to current episode. We will attempt to: * Integrate into therapeutic groups, milieu and individual therapy. * Maintain in a closely monitored and structured unit * Provide low-stimulation environment * Obtain collateral data to assist in treatment planning * Assess degree of lability of affect and impulse control * Complete safety plan * Decrease frequency of relapse and need for re-hospitalization * Denies thoughts of harm to self and/or others * Establish a consistent sleep pattern * Medication effective in stabilization of mood and/or thought process * Reduce the risk of imminent harm to self and/or others by providing a safe environment * Tolerates medication without side effects * Patient will be on the following psychiatric medications: Abilify 15 mg daily Seroquel 200 at bedtime Start course of ampicillin to target urinary tract infection. Labs: UA positive for strep group B Education: Educate patient about recreational drug use as an etiology Educate about metabolic etiologies related to obesity Patient's legal status Patient is on a 180 day LR +2 14 day extensions of an involuntary treatment hold. Disposition: Retirement care through the [facility] team Liam Dobbins MD Aug 19, 2016 15:32
--- NOTE | 2016-08-19 15:35 | NUR ---
Subway Repair Supervisor/Counselor S:"I'm sad because it's my dad's memorial today and I'm here." O: Patient denies any SI or HI, no AVH, no anxiety or depression. A: Patient stated that the medications have helped her anxiety. She was very tangential and manic during group, but seemed to calm down once she was able to go outside. Patient has Homes and Community assessment scheduled for sunday, and seems to be looking forward to it. P:Follow care plan and coordinate with outpatient providers.
[2016-08-19] MEDS ORDERED: Trimethoprim-Sulfa 160 mg-800 mg Tablet PO SCH (20:30)
[2016-08-19] MEDS: LORazepam 2 mg Tablet PO SCH (22:06)
[2016-08-19] MEDS: HYDROcodone-APAP 5-325 mg Tablet PO PRN (22:08)
[2016-08-20] MEDS: diphenhydrAMINE 50 mg Capsule PO PRN (02:49)
[2016-08-20] MEDS: LORazepam 1 mg Tablet PO PRN ×2 (02:49→12:14)
[2016-08-20] MEDS: HYDROcodone-APAP 5-325 mg Tablet PO PRN ×3 (02:49→21:26)
--- NOTE | 2016-08-20 06:31 | NUR ---
Nursing, NOC Patient visible in room and on unit. Significant progress tonight; calm and appropriate, speech normal rate/rhythm. Less intrusive, less demanding, and easy to re-direct when neccessary. Able to entertain herself quietly for most of the shift. PRN Ativan, Benadryl, and [place] given every 4 hours thru the night w/ fair effect. Slept 2 hours thru night, restless after 0300. CTM for changes.
[2016-08-20] MEDS: Pantoprazole 40 mg ER24 Tablet PO SCH (07:37)
[2016-08-20 07:50] VITALS: BP 144/86; PULSE 70; RESP 19
[2016-08-20] MEDS: [UNRECOGNIZED DRUG - OTHER] MUC_MEMBRM SCH ×4 (08:00→21:22)
[2016-08-20] MEDS: TRIAMCINOLONE 0.1% MUC_MEMBRM SCH ×4 (08:00→21:22)
[2016-08-20] MEDS: diphenhydrAMINE 50 mg Capsule PO SCH ×2 (08:14→21:19)
--- NOTE | 2016-08-20 11:46 | NUR ---
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 Filled out appropriately for the most part though some content delusional. Has been out in the public areas most of the shift. Social with peers. Eating well at meals. Attending group activities. Denies anxiety, harmful thoughts, and hallucinations. Depression "the family is here from all over the country for my dad's memorial service. I'm in here." A: Some depression. Calmer today. Considerate. P: CPOC. Monitor mood and behavior.
--- NOTE | 2016-08-20 18:10 | PCM.PNPSY ---
Subjective Date of Service Aug 20, 2016 Subjective I spent 30 minutes both reviewing treatment plan with our clinical team, interviewing the patient and providing supportive/educational psychotherapy. I spent more than 50% of the time counseling the patient. I reviewed the treatment plan with the patient and discussed options available including the potential risks, benefits and side effects. Malu reports a marked improvement in thought organization and mood stability. Staff reports that she has been active and participating well in one-to-one unit and group activities. She slept 2 hours and denies depression manic or psychotic symptoms review. Staff reports that she is markedly less intrusive and is been more appropriate on the unit. They actually described her as cordial. She is no longer talking about being . She is agreeable with the current medication regimen. She denies medication side effects and feels as if the Seroquel she is on is appropriate.. She was able to identify her medications and what they were used to treat. Current Medications Current Medications Penicillin V Potassium 250 mg TID PO Last administered on 08/20/16 15:44; Admin Dose 250 MG; Start 08/19/16 at 20:30; Stop 08/26/16 at 20:31 Quetiapine Fumarate 200 mg HS PO Last administered on 08/19/16 22:07; Admin Dose 200 MG; Start 08/18/16 at 21:00 Mental Status Exam Appearance: Neat/well groomed Attitude: Pleasant (generally), Cooperative Behavior: No unusual behavior Affect: Well Modulated/Appropriate, Labile (midly) Mood: Dysthymic Thought Process/Associations: Logical/Sequential, Goal Directed Speech Production: Normal Speech Rate: Normal Speech Articulation: Normal Thought Content: Negativistic, Somatic preoccupation, Suspicious, Perseveration Danger to Self/Suicidal Ideati: None Danger to Others: None Delusions: Paranoid (mild regarding security officers and safety at [facility]), Somatic (Endorses) Consciousness: Alert Orientation: Person, Place, Date, Situation Memory: Grossly Intact Estimate Intellectual Function: Average Basis for IQ estimate: Word use/vocabulary Attention/Concentration & Cogn: Impaired Insight: Limited Judgement: Limited Result Diagram: 08/15/16 1000 08/15/16 1000 Mental Health Plan The patient is a 56-year-old female with a recent psychiatric hospitalization at the [facility] (admitted 05/01/2016 and discharged on 05/19/2016). The patient had been discharged to [facility], but she had been unable to follow expectations and was demonstrating symptoms of decompensation. On admission, she presented with multiple symptoms of bipolar disorder with psychosis including distractibility, pressured speech, racing thoughts, grandiose and paranoid delusions, increased activity, and poor interpersonal boundaries with impaired judgment and insight. The patient was admitted on a revocation of a less restrictive order following failure to comply with her less restrictive order. She has been tried on a number of medications but stabilized on a combination of aripiprazole 20 mg daily and Depakote 750 mg. The patient has consistently refused Depakote and so has been continued on a combination of lorazepam and aripiprazole. The patient received her first dose of Abilify Maintena 400 mg on April 26, 2016,her second dose on May 26, 2016, and third on June 25, 2016. She refused her third dose scheduled for 2016. Since that time she had been increasingly agitated and paranoid. She was experiencing symptoms of both yahaira and psychosis with paranoia and intrusive behaviors. At present staff reports a decrease in symptoms of yahaira as well as a decrease in psychotic delusional thoughts over the past 72 hours. I am concerned that the Seroquel and Abilify will not be enough mood stabilizer and potency of antipsychotic to maintain her current peaceful condition. She has slept less than 4 hours the past 3 nights. [place] Col[place] I. Bipolar disorder, manic, with psychotic features, Posttraumatic stress disorder, Polysubstance use disorder, in early remission. [place] II. Deferred. [place] III. Hypertension, Insulin-dependent diabetes mellitus, hypothyroidism, and obesity, recent fall. [place] IV. Unknown. [place] V. Current Global Assessment of Functioning is 35 Treatments Patient is being provided with a high degree of safety through our unit structure and active adult engagement provided by our mental health professionals, mental health technicians, psychiatric nurses and myself. We are focusing on developing improved coping skills and identifying stressors that may have led to current episode. We will attempt to: * Integrate into therapeutic groups, milieu and individual therapy. * Maintain in a closely monitored and structured unit * Provide low-stimulation environment * Obtain collateral data to assist in treatment planning * Assess degree of lability of affect and impulse control * Complete safety plan * Decrease frequency of relapse and need for re-hospitalization * Denies thoughts of harm to self and/or others * Establish a consistent sleep pattern * Medication effective in stabilization of mood and/or thought process * Reduce the risk of imminent harm to self and/or others by providing a safe environment * Tolerates medication without side effects * Patient will be on the following psychiatric medications: Abilify 15 mg daily Seroquel 200 at bedtime Start course of ampicillin to target urinary tract infection. Labs: UA positive for strep group B Education: Educate patient about recreational drug use as an etiology Educate about metabolic etiologies related to obesity Patient's legal status Patient is on a 180 day LR +2 14 day extensions of an involuntary treatment hold. Disposition: Long Term care through the [facility] team Liam Dobbins MD Aug 20, 2016 18:10
--- NOTE | 2016-08-20 18:45 | NUR ---
Observations [id number] Pt friendly with peers and staff. Pt mentioned to this principal technical writer "I should have taken this medicine a few months ago....it's good for my mind, but rots my teeth and causes me to gain weight." Pt appeared much more positive regarding medication. 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 Pt mentioned finding housing in [place] and feeling very hopeful about her future. Pt spoke with both of her daughters today. Pt participated in unit activities, attended all meals eating 100%. She was observed every 15 minutes of shift as directed.
[2016-08-20] MEDS: LORazepam 2 mg Tablet PO SCH (21:19)
--- NOTE | 2016-08-20 23:56 | NUR ---
Observations 1900 to 0700 Pt attended and participated in wrap up group. Pt ate a snack. Pt spends free time socializing with peers and using the phone. Pt is pleasant and cooperative until she disagrees with staff decision. When music was turned off in Q.branche[place] 5 minutes early due to technical difficulties, pt became verbally abusive to staff You are lying! You could fix it. Pt also asserted she was missing a pillow and assumed another pt took the pillow. Pts speech is pressured at times and canbe labile. Pt appeared asleep at 2215 and has remained asleep. Pt respirations were observed when asleep. Staff completed 15 min close observations as ordered.
[2016-08-21] MEDS: HYDROcodone-APAP 5-325 mg Tablet PO PRN ×5 (00:36→22:47)
--- NOTE | 2016-08-21 05:11 | NUR ---
Radiology Resident Nursing Note 11pm to 7am Pt asleep at start of shift and woke up at 0030 requesting Ibuprofen, Ronceverte 1 tab and Robaxin for pain in her knees, hip and head. Pt hit her head on door frame when she got up. Given ice. Pt was labile, disgruntled. Pt went back to bed and awoke for the day at 0330. Spent remainder of shift fluctuating between dining room and bedroom. Monitored pt. with q 15 min face checks for safety, location and accountability
[2016-08-21 05:40] VITALS: BP 112/68; PULSE 59; RESP 15
[2016-08-21] MEDS: [UNRECOGNIZED DRUG - OTHER] MUC_MEMBRM SCH ×4 (08:00→22:48)
[2016-08-21] MEDS: TRIAMCINOLONE 0.1% MUC_MEMBRM SCH ×4 (08:00→22:48)
[2016-08-21 08:40] VITALS: BP 112/68; PULSE 59; RESP 15
[2016-08-21] MEDS: Pantoprazole 40 mg ER24 Tablet PO SCH (08:52)
[2016-08-21] MEDS: diphenhydrAMINE 50 mg Capsule PO SCH ×2 (08:52→22:39)
--- NOTE | 2016-08-21 12:33 | PCM.PNPSY ---
Subjective Date of Service Aug 21, 2016 Subjective I spent 30 minutes both reviewing treatment plan with our clinical team, interviewing the patient and providing supportive/educational psychotherapy. I spent more than 50% of the time counseling the patient. I reviewed the treatment plan with the patient and discussed options available including the potential risks, benefits and side effects. Malu reports a marked improvement in thought organization and mood stability. Staff reports that she has been active and participating well in one-to-one unit and group activities. She slept 2 hours and denies depression manic or psychotic symptoms review. Staff reports that she is markedly less intrusive and is been more appropriate on the unit. They actually described her as cordial. She is no longer talking about being . She is agreeable with the current medication regimen. She denies medication side effects and feels as if the Seroquel she is on is appropriate.. She was able to identify her medications and what they were used to treat. Current Medications Current Medications Penicillin V Potassium 250 mg TID PO Last administered on 08/21/16t 08:46; Admin Dose 250 MG; Start 08/19/16 at 20:30; Stop 08/26/16 at 20:31 Mental Status Exam Vital Signs Vital Signs Date Time Temp Pulse Resp B/P Pulse Ox O2 Delivery O2 Flow Rate FiO2 08/21/16 05:40 36.3 59 15 112/68 Appearance: Neat/well groomed Attitude: Pleasant (generally), Cooperative Behavior: No unusual behavior Affect: Well Modulated/Appropriate Mood: Expansive, Euphoric Thought Process/Associations: Logical/Sequential, Goal Directed Speech Production: Normal Speech Rate: Normal Speech Articulation: Normal Thought Content: Negativistic, Somatic preoccupation, Suspicious, Perseveration Danger to Self/Suicidal Ideati: None Danger to Others: None Delusions: Paranoid (mild regarding security officers and safety at [facility]), Somatic (Endorses) Consciousness: Alert Orientation: Person, Place, Date, Situation Memory: Grossly Intact Estimate Intellectual Function: Average Basis for IQ estimate: Word use/vocabulary Attention/Concentration & Cogn: Impaired Insight: Limited Judgement: Limited Result Diagram: 08/15/16 1000 08/15/16 1000 Mental Health Plan The patient is a 56-year-old female with a recent psychiatric hospitalization at the [facility] (admitted 05/01/2016 and discharged on 05/19/2016). The patient had been discharged to [facility], but she had been unable to follow expectations and was demonstrating symptoms of decompensation. On admission, she presented with multiple symptoms of bipolar disorder with psychosis including distractibility, pressured speech, racing thoughts, grandiose and paranoid delusions, increased activity, and poor interpersonal boundaries with impaired judgment and insight. The patient was admitted on a revocation of a less restrictive order following failure to comply with her less restrictive order. She has been tried on a number of medications but stabilized on a combination of aripiprazole 20 mg daily and Depakote 750 mg. The patient has consistently refused Depakote and so has been continued on a combination of lorazepam and aripiprazole. The patient received her first dose of Abilify Maintena 400 mg on April 26, 2016,her second dose on May 26, 2016, and third on June 25, 2016. She refused her third dose scheduled for 2016. At present staff reports a decrease in symptoms of yahaira as well as a decrease in psychotic delusional thoughts over the past 72 hours. I am concerned that the Seroquel and Abilify will not be enough mood stabilizer and potency of antipsychotic to maintain her current peaceful condition. She has slept 5 hours last nights. [place] I. Bipolar disorder, manic, with psychotic features, Posttraumatic stress disorder, Polysubstance use disorder, in early remission. [place] II. Deferred. [place] III. Hypertension, Insulin-dependent diabetes mellitus, hypothyroidism, and obesity, recent fall. [place] IV. Unknown. [place] V. Current Global Assessment of Functioning is 35 Treatments Patient is being provided with a high degree of safety through our unit structure and active adult engagement provided by our mental health professionals, mental health technicians, psychiatric nurses and myself. We are focusing on developing improved coping skills and identifying stressors that may have led to current episode. We will attempt to: * Integrate into therapeutic groups, milieu and individual therapy. * Maintain in a closely monitored and structured unit * Provide low-stimulation environment * Obtain collateral data to assist in treatment planning * Assess degree of lability of affect and impulse control * Complete safety plan * Decrease frequency of relapse and need for re-hospitalization * Denies thoughts of harm to self and/or others * Establish a consistent sleep pattern * Medication effective in stabilization of mood and/or thought process * Reduce the risk of imminent harm to self and/or others by providing a safe environment * Tolerates medication without side effects * Patient will be on the following psychiatric medications: Abilify 15 mg daily Seroquel 200 at bedtime Start course of penicillin to target urinary tract infection. Labs: UA positive for strep group B Education: Educate patient about recreational drug use as an etiology Educate about metabolic etiologies related to obesity Patient's legal status Patient is on a 180 day LR +2 14 day extensions of an involuntary treatment hold. Disposition: Intermediate care through the [facility] transitions team Liam Dobbins MD Aug 21, 2016 12:33
[2016-08-21] MEDS: LORazepam 1 mg Tablet PO PRN ×3 (12:36→22:46)
[2016-08-21] MEDS: diphenhydrAMINE 50 mg Capsule PO PRN (12:36)
--- NOTE | 2016-08-21 13:08 | NUR ---
NURS NOTE DAYSHIFT Mood: Labile. Affect: Tearful, at time. Behavior: Walking laps, interacting with peers. Thought Content/Process: "Dr. Dobbins needs to stop asking me out on dates. No Im not getting coffee with you. No Im not having dinner with you. No Im not going to the movies with you." Speech remains somewhat pressured. Denies SI, HI. Denies AH, VH. PRN/NURS Notes: Ativan 1 mg and [place] 5-325 mg 1230.
--- NOTE | 2016-08-21 15:49 | NUR ---
Outside Barrel Lathe Operator/Counselor S:"I"m just a little upset today." O: Patient denies any SI or HI, no AVH, no anxiety or depression. A: Patient stated she was a little upset because of still being here, but was encouraged about her home and community assessment tomorrow morning. She has been active on the unit, playing ping pong and interacting with other patients. Somewhat tearful at times. P: Follow care plan and coordinate with outpatient providers.
--- NOTE | 2016-08-21 17:44 | NUR ---
Shift note 3P-7P Pt has been very pleasant and cooperative this afternoon. Appropriate interactions with peers. Denies anxiety, depression, thoughts of harm to self or others, or hallucinations.
[2016-08-21] MEDS: LORazepam 2 mg Tablet PO SCH (21:00)
--- NOTE | 2016-08-21 23:55 | NUR ---
NOC OBS Pt out on unit most of evening. Affect blunted with times of exaggeration. Mood labile, intrusive, accusatory, and belligerent. Asleep 130-445. Observed Q15 as ordered.
[2016-08-22] MEDS: LORazepam 1 mg Tablet PO PRN ×2 (04:57→13:02)
[2016-08-22] MEDS: HYDROcodone-APAP 5-325 mg Tablet PO PRN ×3 (04:57→22:07)
[2016-08-22] MEDS: Pantoprazole 40 mg ER24 Tablet PO SCH (07:45)
[2016-08-22] MEDS: diphenhydrAMINE 50 mg Capsule PO SCH ×2 (07:45→21:59)
[2016-08-22] MEDS: [UNRECOGNIZED DRUG - OTHER] MUC_MEMBRM SCH ×4 (07:46→22:00)
[2016-08-22] MEDS: TRIAMCINOLONE 0.1% MUC_MEMBRM SCH ×4 (07:46→22:00)
[2016-08-22] MEDS: Magnesium Hydroxide 10 mL Oral Concentration PO PRN (07:48)
[2016-08-22 07:58] VITALS: BP 124/78; PULSE 72; RESP 16
--- NOTE | 2016-08-22 14:50 | PCM.PNPSY ---
Subjective Date of Service Aug 22, 2016 Subjective I spent 30 minutes both reviewing treatment plan with our clinical team, interviewing the patient and providing supportive/educational psychotherapy. I spent more than 50% of the time counseling the patient. I reviewed the treatment plan with the patient and discussed options available including the potential risks, benefits and side effects. Malu reports a marked improvement in thought organization and mood stability. Staff reports that she has been active and participating well in one-to-one unit and group activities. She slept only 3 hours but continues to deny depression manic or psychotic symptoms review. Staff reports that she has remained less intrusive and is been more appropriate on the unit. They actually described her as cordial. She is no longer talking about being . She is agreeable with the current medication regimen. She denies medication side effects and feels as if the Seroquel she is on is appropriate.. Current Medications Current Medications Glipizide 10 mg BIDAC PO Last administered on 08/22/16t 07:45; Admin Dose 10 MG ; Start 08/22/16 at 07:30 Mental Status Exam Vital Signs Vital Signs Date Time Temp Pulse Resp B/P Pulse Ox O2 Delivery O2 Flow Rate FiO2 08/22/16 07:58 36.3 72 16 124/78 Appearance: Neat/well groomed Attitude: Pleasant (generally), Cooperative Behavior: No unusual behavior Affect: Well Modulated/Appropriate Mood: Expansive, Euphoric Thought Process/Associations: Logical/Sequential, Goal Directed Speech Production: Normal Speech Rate: Normal Speech Articulation: Normal Thought Content: Somatic preoccupation, Suspicious, Perseveration Danger to Self/Suicidal Ideati: None Danger to Others: None Delusions: Paranoid (mild regarding security officers and safety at [facility]), Somatic (Endorses) Consciousness: Alert Orientation: Person, Place, Date, Situation Memory: Grossly Intact Estimate Intellectual Function: Average Basis for IQ estimate: Word use/vocabulary Attention/Concentration & Cogn: Impaired Insight: Limited Judgement: Limited Mental Health Plan The patient is a 56-year-old female with a recent psychiatric hospitalization at the [facility] (admitted 05/01/2016 and discharged on 05/19/2016). The patient had been discharged to [facility], but she had been unable to follow expectations and was demonstrating symptoms of decompensation. On admission, she presented with multiple symptoms of bipolar disorder with psychosis including distractibility, pressured speech, racing thoughts, grandiose and paranoid delusions, increased activity, and poor interpersonal boundaries with impaired judgment and insight. The patient was admitted on a revocation of a less restrictive order following failure to comply with her less restrictive order. She has been tried on a number of medications but stabilized on a combination of aripiprazole 20 mg daily and Depakote 750 mg. The patient has consistently refused Depakote and so has been continued on a combination of lorazepam and aripiprazole. The patient received her first dose of Abilify Maintena 400 mg on April 26, 2016,her second dose on May 26, 2016, and third on June 25, 2016. She refused her third dose scheduled for 2016. At present staff reports a decrease in symptoms of yahaira as well as a decrease in psychotic delusional thoughts over the past 72 hours. I am concerned that the Seroquel and Abilify will not be enough mood stabilizer and potency of antipsychotic to maintain her current peaceful condition. She slept only 3 hours last night. [place] I. Bipolar disorder, manic, with psychotic features, Posttraumatic stress disorder, Polysubstance use disorder, in early remission. [place] II. Deferred. [place] III. Hypertension, Insulin-dependent diabetes mellitus, hypothyroidism, and obesity, recent fall. [place] IV. Unknown. [place] V. Current Global Assessment of Functioning is 35 Treatments Patient is being provided with a high degree of safety through our unit structure and active adult engagement provided by our mental health professionals, mental health technicians, psychiatric nurses and myself. We are focusing on developing improved coping skills and identifying stressors that may have led to current episode. We will attempt to: * Integrate into therapeutic groups, milieu and individual therapy. * Maintain in a closely monitored and structured unit * Provide low-stimulation environment * Obtain collateral data to assist in treatment planning * Assess degree of lability of affect and impulse control * Complete safety plan * Decrease frequency of relapse and need for re-hospitalization * Denies thoughts of harm to self and/or others * Establish a consistent sleep pattern * Medication effective in stabilization of mood and/or thought process * Reduce the risk of imminent harm to self and/or others by providing a safe environment * Tolerates medication without side effects * Patient will be on the following psychiatric medications: Abilify 15 mg daily Seroquel 200 at bedtime Start course of penicillin to target urinary tract infection. I am attempting to encourage client to start a trial of a mood stabilizer. Labs: UA positive for strep group B Education: Educate patient about recreational drug use as an etiology Educate about metabolic etiologies related to obesity Patient's legal status Patient is on a 180 day LR +2 14 day extensions of an involuntary treatment hold. Disposition: Long Term care through the [facility] team Liam Dobbins MD Aug 22, 2016 14:50
--- NOTE | 2016-08-22 15:48 | NUR ---
Trolley Cleaner/Counselor S:"Everything is the same, fine, fine fine!" O: Patient stated she was fine all around, and did not answer questions. A: Patient was agitated about another patient complaining about her length of stay. Patient decided to go to her room to take a nap, since she felt frustrated at her own length of stay and others complaining for only having been on the Unit for a short amount of time. Patient met with [facility]ha from [facility] today and Megha will follow up with CM's re: assessment tomorrow. P: Follow care plan and coordinate with outpatient providers.
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
--- NOTE | 2016-08-22 19:40 | NUR ---
Obs Dayshift Pt has been restless, tired, labile, polite, irritable and engaging. Pt is easily agitated and goes to her room to calm down, rests and gets up ready to try again. Pt spent much of the afternoon on the patio. Pt had a good visit w/ her daughter this evening, engaging well w/ peers and staff. Pt has good ADL's, Good meals
[2016-08-22] MEDS: LORazepam 2 mg Tablet PO SCH (22:01)
--- NOTE | 2016-08-23 01:08 | NUR ---
NOC NURSING NOTE Patient continues to pace hallways and be intrusive with staff and patients. Redirects well with distraction. Taking her medications, however, complained about the seroquel. Reports seroquel is for "bipolar" and I am just depressed. Patient had a good visit with daughter this evening. Needed encouragement to lie down as she appeared quite exhausted and drowsy, yet denied being sleepy.
[2016-08-23] MEDS: LORazepam 1 mg Tablet PO PRN (02:39)
[2016-08-23] MEDS: HYDROcodone-APAP 5-325 mg Tablet PO PRN ×3 (03:43→22:43)
[2016-08-23] MEDS: Pantoprazole 40 mg ER24 Tablet PO SCH (07:38)
[2016-08-23] MEDS: diphenhydrAMINE 50 mg Capsule PO SCH ×2 (07:39→22:04)
[2016-08-23] MEDS: TRIAMCINOLONE 0.1% MUC_MEMBRM SCH ×4 (07:42→22:06)
[2016-08-23] MEDS: [UNRECOGNIZED DRUG - OTHER] MUC_MEMBRM SCH ×4 (07:42→22:06)
[2016-08-23] MEDS: Magnesium Hydroxide 10 mL Oral Concentration PO PRN (09:01)
[2016-08-23 10:18] VITALS: BP 129/79; PULSE 73; RESP 18
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
--- NOTE | 2016-08-23 12:45 | NUR ---
Obs Dayshift Pt is participating well in groups, appropriate, at times needs slight redirection to come back to topic. Pt is able to remain calm or take a break when she does get upset or irritable. Pt is exercising, pacing the unit, much less pressured speech. Pt is hopeful for DC soon, appropriate goals for herself, and appreciative that she might stay local when she does DC so she can be closer to family. Good ALD's, GOod meals
--- NOTE | 2016-08-23 12:48 | NUR ---
nursing note dayshift S)"I am going to [place] going to see my sister in senior care" O) pt friendly and minimal obtrusive behavior this shift, no complaints, took medication with out problems, walks halls for excise, pleasant to this job specification writer and interacting well with other peers, denies anxiety or depression A) calmer, pleasant and cooperative P) monitor behavior redirect as needed
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
--- NOTE | 2016-08-23 19:49 | NUR ---
resident services manager/Counselor: S: "I'm thankful that I'm getting help so I can discharge." O: Patient slept 4.25 hours last night per staff. Patient denies S/I and H/I. She also denies auditory and visual hallucinations. Depression is 0/10 and anxiety is 0/10. This typewriter tester spoke with Megha [facility] and she is in the process of contacting local housing contacts for patient. Megha will give an update to this typewriter tester tomorrow. A: Patient is cooperative, guarded, tearful, restricted affect, dysthymic, insight and judgment are improving. P: Follow care plan, coordinate with out-patient providers.
[2016-08-23] MEDS: LORazepam 2 mg Tablet PO SCH (22:07)
[2016-08-24] MEDS: diphenhydrAMINE 50 mg Capsule PO PRN (02:41)
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
[2016-08-24] MEDS: diphenhydrAMINE 50 mg Capsule PO SCH ×2 (07:53→22:05)
[2016-08-24] MEDS: Pantoprazole 40 mg ER24 Tablet PO SCH (07:53)
[2016-08-24] MEDS: TRIAMCINOLONE 0.1% MUC_MEMBRM SCH ×4 (08:00→22:00)
[2016-08-24] MEDS: [UNRECOGNIZED DRUG - OTHER] MUC_MEMBRM SCH ×4 (08:00→22:00)
--- NOTE | 2016-08-24 11:04 | PCM.PNPSY ---
Subjective Date of Service Aug 24, 2016 Subjective I spent 30 minutes both reviewing treatment plan with our clinical team, interviewing the patient and providing supportive/educational psychotherapy. I spent more than 50% of the time counseling the patient. I reviewed the treatment plan with the patient and discussed options available including the potential risks, benefits and side effects. Today Malu reports that she slept very well, about 7 hours, even though staff reported only 3 hour sleep. 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 She denies suicidal and/or homicidal ideations, auditory and/or visual hallucinations. She is taking her scheduled psych meds as well as PRN meds and reports no side effects. She c/o constipation and would like to get some medications for it. As yesterday, she broke into tears a few times during today's interview, mostly when she was referring to her . According to staff, Malu has been active and participating well in one-to-one unit and group activities. Staff also reports that she has remained less intrusive and is been more appropriate on the unit. Mental Status Exam Appearance: Neat/well groomed Attitude: Pleasant (generally), Cooperative Behavior: No unusual behavior Affect: Well Modulated/Appropriate Mood: Expansive, Euphoric Thought Process/Associations: Logical/Sequential, Goal Directed Speech Production: Normal Speech Rate: Normal Speech Articulation: Normal Thought Content: Somatic preoccupation, Suspicious, Perseveration Danger to Self/Suicidal Ideati: None Danger to Others: None Delusions: Paranoid (mild regarding security officers and safety at [place] [facility]), Somatic (Endorses) Consciousness: Alert Orientation: Person, Place, Date, Situation Memory: Grossly Intact Estimate Intellectual Function: Average Basis for IQ estimate: Word use/vocabulary Attention/Concentration & Cogn: Impaired Insight: Limited Judgement: Limited Mental Health Plan The patient is a 56-year-old female with a recent psychiatric hospitalization at the [facility] (admitted 05/01/2016 and discharged on 05/19/2016). The patient had been discharged to [facility], but she had been unable to follow expectations and was demonstrating symptoms of decompensation. On admission, she presented with multiple symptoms of bipolar disorder with psychosis including distractibility, pressured speech, racing thoughts, grandiose and paranoid delusions, increased activity, and poor interpersonal boundaries with impaired judgment and insight. The patient was admitted on a revocation of a less restrictive order following failure to comply with her less restrictive order. She has been tried on a number of medications but stabilized on a combination of aripiprazole 20 mg daily and Depakote 750 mg. The patient has consistently refused Depakote and so has been continued on a combination of lorazepam and aripiprazole. The patient received her first dose of Abilify Maintena 400 mg on April 26, 2016, her second dose on May 26, 2016 , and third on June 25, 2016. She refused her third dose scheduled for 2016. At present staff reports a decrease in symptoms of yahaira as well as a decrease in psychotic delusional thoughts over the past 72 hours. I am concerned that the Seroquel and Abilify will not be enough mood stabilizer and potency of antipsychotic to maintain her current peaceful condition. She slept 3 hours last night according to staff, but she reports 7 hours. [place] I. Bipolar disorder, manic, with psychotic features, Posttraumatic stress disorder, Polysubstance use disorder, in early remission. [place] II. Deferred. [place] III. Hypertension, Insulin-dependent diabetes mellitus, hypothyroidism, and obesity, recent fall. [place] IV. Unknown. [place] V. Current Global Assessment of Functioning is 35 Treatments Patient is being provided with a high degree of safety through our unit structure and active adult engagement provided by our mental health professionals, mental health technicians, psychiatric nurses and myself. We are focusing on developing improved coping skills and identifying stressors that may have led to current episode. We will attempt to: * Integrate into therapeutic groups, milieu and individual therapy. * Maintain in a closely monitored and structured unit * Provide low-stimulation environment * Obtain collateral data to assist in treatment planning * Assess degree of lability of affect and impulse control * Complete safety plan * Decrease frequency of relapse and need for re-hospitalization * Denies thoughts of harm to self and/or others * Establish a consistent sleep pattern * Medication effective in stabilization of mood and/or thought process * Reduce the risk of imminent harm to self and/or others by providing a safe environment * Tolerates medication without side effects * Patient will be on the following psychiatric medications: Abilify 15 mg daily Seroquel 200 at bedtime Continue penicillin to target urinary tract infection. I am attempting to encourage client to start a trial of a mood stabilizer. Labs: UA positive for strep group B Education: Educate patient about recreational drug use as an etiology Educate about metabolic etiologies related to obesity Patient's legal status Patient is on a 180 day LR +2 14 day extensions of an involuntary treatment hold. Disposition: Long-Term care through the [facility] team Attending Statement I met with Violet and reviewed the case with Dr. Goodwin. I agree with Dr. Goodwin 's assessment and plan Elza Goodwin DO Aug 24, 2016 11:04 Liam Dobbins MD Aug 24, 2016 12:35
--- NOTE | 2016-08-24 11:13 | NUR ---
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
[2016-08-24] MEDS: LORazepam 1 mg Tablet PO PRN (14:16)
[2016-08-24] MEDS: HYDROcodone-APAP 5-325 mg Tablet PO PRN ×2 (16:01→22:10)
[2016-08-24 16:05] VITALS: BP 122/77; PULSE 72; RESP 19
[2016-08-24] MEDS: Magnesium Hydroxide 10 mL Oral Concentration PO PRN (17:57)
[2016-08-24] MEDS: LORazepam 2 mg Tablet PO SCH (22:06)
--- NOTE | 2016-08-25 02:17 | NUR ---
Observations 1900 to 0700 Pt attended and participated in wrap up group. Pt ate a snack. Pt socializes with peers. Pt continues to be labile and at times attempts to staff split. Pt maintained behavioral control and showed no signs of abnormal behavior. Pt appeared asleep at 0030 and has remained asleep. Pt respirations were observed when asleep. Staff completed 15 min close observations as ordered.
[2016-08-25] MEDS: LORazepam 1 mg Tablet PO PRN (02:50)
[2016-08-25] MEDS: diphenhydrAMINE 50 mg Capsule PO PRN (02:56)
--- NOTE | 2016-08-25 04:00 | NUR ---
nursing, nights, 11-7 s- i'm hurting really bad. you have to get me something. he has lost weight. he's fat and and a drunk. how sad she's a real nice lady. can i have a hot pack. i'm . good night. o- has appeared to sleep after . ask for and received 200 mg motrin, 50 mg benadryl, and 1 mg ativan. intrusive with other patients at times. is currently lying quietly in bed. assessed q 15 minutes. a- inadequate sleep, labile, compliant with redirection, no apparent physical distress. p- monitor behavior/emotional state, quality, times and amount of sleep, use and effect of medication. yolanda
[2016-08-25] MEDS: Pantoprazole 40 mg ER24 Tablet PO SCH (07:55)
[2016-08-25] MEDS: TRIAMCINOLONE 0.1% MUC_MEMBRM SCH ×4 (07:55→22:00)
[2016-08-25] MEDS: [UNRECOGNIZED DRUG - OTHER] MUC_MEMBRM SCH ×4 (07:55→22:00)
[2016-08-25] MEDS: diphenhydrAMINE 50 mg Capsule PO SCH ×2 (07:55→22:03)
[2016-08-25] MEDS: HYDROcodone-APAP 5-325 mg Tablet PO PRN ×2 (08:09→22:02)
--- NOTE | 2016-08-25 13:23 | PCM.PNPSY ---
Subjective Date of Service Aug 25, 2016 Subjective I spent 30 minutes both reviewing treatment plan with our clinical team, interviewing the patient and providing supportive/educational psychotherapy. I spent more than 50% of the time counseling the patient. I reviewed the treatment plan with the patient and discussed options available including the potential risks, benefits and side effects. Today Malu reports that she slept very well, about 7 hours, even though staff reported only 2 hours of sleep. She denies anxiety and/or depression. She is taking her scheduled psych meds as well as PRN meds and reports no side effects. According to staff, Malu has been active and participating well in one-to-one unit and group activities. Staff also reports that she has remained less intrusive and is been more appropriate on the unit. Mental Status Exam Appearance: Neat/well groomed Attitude: Pleasant (generally), Cooperative Behavior: No unusual behavior Affect: Well Modulated/Appropriate Mood: Expansive, Euphoric Thought Process/Associations: Logical/Sequential, Goal Directed Speech Production: Normal Speech Rate: Normal Speech Articulation: Normal Thought Content: Somatic preoccupation, Suspicious, Perseveration Danger to Self/Suicidal Ideati: None Danger to Others: None Delusions: Paranoid (mild regarding security officers and safety at [facility]), Somatic (Endorses) Consciousness: Alert Orientation: Person, Place, Date, Situation Memory: Grossly Intact Estimate Intellectual Function: Average Basis for IQ estimate: Word use/vocabulary Attention/Concentration & Cogn: Impaired Insight: Limited Judgement: Limited Mental Health Plan The patient is a 56-year-old female with a recent psychiatric hospitalization at the [facility] (admitted 05/01/2016 and discharged on 05/19/2016). The patient had been discharged to [facility], but she had been unable to follow expectations and was demonstrating symptoms of decompensation. On admission, she presented with multiple symptoms of bipolar disorder with psychosis including distractibility, pressured speech, racing thoughts, grandiose and paranoid delusions, increased activity, and poor interpersonal boundaries with impaired judgment and insight. The patient was admitted on a revocation of a less restrictive order following failure to comply with her less restrictive order. She has been tried on a number of medications but stabilized on a combination of aripiprazole 20 mg daily and Depakote 750 mg. The patient has consistently refused Depakote and so has been continued on a combination of lorazepam and aripiprazole. The patient received her first dose of Abilify Maintena 400 mg on April 26, 2016,her second dose on May 26, 2016, and third on June 25, 2016. She refused her third dose scheduled for 2016. At present staff reports a decrease in symptoms of yahaira as well as a decrease in psychotic delusional thoughts over the past 72 hours. I am concerned that the Seroquel and Abilify will not be enough mood stabilizer and potency of antipsychotic to maintain her current peaceful condition. Per her report she slept 10 hours yesterday per staff She slept only 3 hours last night. [place] I. Bipolar disorder, manic, with psychotic features, Posttraumatic stress disorder, Polysubstance use disorder, in early remission. [place] II. Deferred. [place] III. Hypertension, Insulin-dependent diabetes mellitus, hypothyroidism, and obesity, recent fall. [place] IV. Unknown. [place] V. Current Global Assessment of Functioning is 35 Treatments Patient is being provided with a high degree of safety through our unit structure and active adult engagement provided by our mental health professionals, mental health technicians, psychiatric nurses and myself. We are focusing on developing improved coping skills and identifying stressors that may have led to current episode. We will attempt to: * Integrate into therapeutic groups, milieu and individual therapy. * Maintain in a closely monitored and structured unit * Provide low-stimulation environment * Obtain collateral data to assist in treatment planning * Assess degree of lability of affect and impulse control * Complete safety plan * Decrease frequency of relapse and need for re-hospitalization * Denies thoughts of harm to self and/or others * Establish a consistent sleep pattern * Medication effective in stabilization of mood and/or thought process * Reduce the risk of imminent harm to self and/or others by providing a safe environment * Tolerates medication without side effects * Patient will be on the following psychiatric medications: Abilify 15 mg daily Seroquel 200 at bedtime Continue penicillin to target urinary tract infection. I am attempting to encourage client to start a trial of a mood stabilizer. Labs: UA positive for strep group B Education: Educate patient about recreational drug use as an etiology Educate about metabolic etiologies related to obesity Patient's legal status Patient is on a 180 day LR +2 14 day extensions of an involuntary treatment hold. Disposition: Snf care through the [facility] team Liam Dobbins MD Aug 25, 2016 13:23
--- NOTE | 2016-08-25 14:25 | NUR ---
Nursing Note [id number] Behavior S/O: Pt c/o breakfast stating she could not eat the pancakes because of her diabetes. Blood sugar this morning was 107. Pt c/o knee pain at a 10 on a scale of 1-10/10 the worst. Pt c/o her knee getting hurt while she was in isolation. Kiana 5/325 given at 0809. Pt states it was "helpful." She c/o tooth pain at a "7." Motrin 800 mg given at 1308. Pt out in milieu most of the day. Conversation tracking clear & organized with normal rate & rhythm. A: Pt irritable today, but able to maintain behavioral control. P: Provide supportive environment. Monitor medications & effects.
--- NOTE | 2016-08-25 18:37 | NUR ---
Nursing: Patient was cleaning up in dining room after dinner tonight when she cut her middle finger on her left hand just below the nail approximately 1 cm diameter. Cleansed by patient with water and paper towels. Mild bleeding noted. Bacitracin applied and covered with a bandaid.
[2016-08-25 19:02] VITALS: BP 135/80; PULSE 59; RESP 16
--- NOTE | 2016-08-25 20:16 | NUR ---
studio manager/Counselor: S: "I need to see a dentist, I had another tooth fall out." O: Patient only slept 2.25 hours last night per staff. Patient denies S/I and H/I. She also denies auditory and visual hallucinations. Depression is 0/10 and anxiety is 0/10. This aligner typewriter spoke with Meg[facility] and she is in the process of contacting local housing contacts for patient because the "jail in [place]" did not work out. A: Patient is cooperative, euphoric, suspicious, restricted affect, limited insight and limited judgment. P: Follow care plan, coordinate with out-patient providers.
[2016-08-25] MEDS: LORazepam 2 mg Tablet PO SCH (22:02)
[2016-08-26] MEDS: HYDROcodone-APAP 5-325 mg Tablet PO PRN ×2 (02:06→21:34)
--- NOTE | 2016-08-26 05:20 | NUR ---
Nursing Noc Pt affect and behavior appear excessively happy or elated. Noted to go into long historical accounts of past actions r/t her present thoughts. Pt presents slightly or hypomanic over the last couple of days. Pt has maintained behavioral control. Continuing to monitor mood, behavior and emotional state. CP
[2016-08-26] MEDS: Pantoprazole 40 mg ER24 Tablet PO SCH (07:38)
[2016-08-26] MEDS: diphenhydrAMINE 50 mg Capsule PO SCH ×2 (07:39→21:33)
[2016-08-26] MEDS: [UNRECOGNIZED DRUG - OTHER] MUC_MEMBRM SCH ×4 (08:00→22:15)
[2016-08-26] MEDS: TRIAMCINOLONE 0.1% MUC_MEMBRM SCH ×4 (08:00→22:15)
--- NOTE | 2016-08-26 13:10 | PCM.PNPSY ---
Subjective Date of Service Aug 26, 2016 Subjective I spent 30 minutes both reviewing treatment plan with our clinical team, interviewing the patient and providing supportive/educational psychotherapy. I spent more than 50% of the time counseling the patient. I reviewed the treatment plan with the patient and discussed options available including the potential risks, benefits and side effects. Today Malu reports that she slept very well, about 5 hours. She denies anxiety and/or depression. She is taking her scheduled psych meds as well as PRN meds and reports no side effects. According to staff, Malu has been active and participating well in one-to-one unit and group activities. Staff also reports that she has remained less intrusive and is been more appropriate on the unit. Mental Status Exam Appearance: Neat/well groomed Attitude: Pleasant (generally), Cooperative Behavior: No unusual behavior Affect: Well Modulated/Appropriate Mood: Expansive, Euphoric Thought Process/Associations: Logical/Sequential, Goal Directed Speech Production: Normal Speech Rate: Normal Speech Articulation: Normal Thought Content: Somatic preoccupation, Suspicious, Perseveration Danger to Self/Suicidal Ideati: None Danger to Others: None Delusions: Paranoid (mild regarding security officers and safety at [facility]), Somatic (Endorses) Consciousness: Alert Orientation: Person, Place, Date, Situation Memory: Grossly Intact Estimate Intellectual Function: Average Basis for IQ estimate: Word use/vocabulary Attention/Concentration & Cogn: Impaired Insight: Limited Judgement: Limited Mental Health Plan The patient is a 56-year-old female with a recent psychiatric hospitalization at the [facility] (admitted 05/01/2016 and discharged on 05/19/2016). The patient had been discharged to [facility], but she had been unable to follow expectations and was demonstrating symptoms of decompensation. On admission, she presented with multiple symptoms of bipolar disorder with psychosis including distractibility, pressured speech, racing thoughts, grandiose and paranoid delusions, increased activity, and poor interpersonal boundaries with impaired judgment and insight. The patient was admitted on a revocation of a less restrictive order following failure to comply with her less restrictive order. She has been tried on a number of medications but stabilized on a combination of aripiprazole 20 mg daily and Depakote 750 mg. The patient has consistently refused Depakote and so has been continued on a combination of lorazepam and aripiprazole. The patient received her first dose of Abilify Maintena 400 mg on April 26, 2016,her second dose on May 26, 2016, and third on June 25, 2016. She refused her third dose scheduled for 2016. At present staff reports a decrease in symptoms of yahaira as well as a decrease in psychotic delusional thoughts over the past 72 hours. [place] I. Bipolar disorder, manic, with psychotic features, Posttraumatic stress disorder, Polysubstance use disorder, in early remission. [place] II. Deferred. [place] III. Hypertension, Insulin-dependent diabetes mellitus, hypothyroidism, and obesity, recent fall. [place] IV. Unknown. [place] V. Current Global Assessment of Functioning is 35 Treatments Patient is being provided with a high degree of safety through our unit structure and active adult engagement provided by our mental health professionals, mental health technicians, psychiatric nurses and myself. We are focusing on developing improved coping skills and identifying stressors that may have led to current episode. We will attempt to: * Integrate into therapeutic groups, milieu and individual therapy. * Maintain in a closely monitored and structured unit * Provide low-stimulation environment * Obtain collateral data to assist in treatment planning * Assess degree of lability of affect and impulse control * Complete safety plan * Decrease frequency of relapse and need for re-hospitalization * Denies thoughts of harm to self and/or others * Establish a consistent sleep pattern * Medication effective in stabilization of mood and/or thought process * Reduce the risk of imminent harm to self and/or others by providing a safe environment * Tolerates medication without side effects * Patient will be on the following psychiatric medications: Abilify 15 mg daily Seroquel 200 at bedtime I am attempting to encourage client to start a trial of a mood stabilizer. Education: Educate patient about recreational drug use as an etiology Educate about metabolic etiologies related to obesity Patient's legal status Patient is on a 180 day LR +2 14 day extensions of an involuntary treatment hold. Disposition: Correction care through the [facility] team Liam Dobbins MD Aug 26, 2016 13:10
--- NOTE | 2016-08-26 14:00 | NUR ---
Behavior Pt cooperative with care. Appropriate with other pts. She expresses future plans she has with family. States she is going to take her grand-daughter to [place] for her 16th birthday on 03/20/17. Augur, dinner at [employer], spend 5 night and 5 days in [place] and buy her a reasonably priced car. She is frequently cleaning, as it's, "therapeutic for me". Care ongoing Addendum: 08/26/16 at 1616 by MEGHAN KING RN Pt changing clothes several times a day. States she is going to give her clothes to her friend when, "I have the baby." Pt touches her abdomen as she talks to me. Addendum: 08/26/16 at 1816 by MEGHAN KING RN Pt daren Fraire came to visit before dinner. She stayed for about 20 min. After she left pt was sad & tearful. I gave her a hug and she states, "I just never had love, my didn't love me he just used to fuck me". My partner RN provided her with 1mg of Ativan and she is back to baseline. Care ongoing.
--- NOTE | 2016-08-26 15:48 | NUR ---
Diamond Grader/Counselor S:"I'm really depressed because I miss my kids." O: Patient denies any SI or HI, no AVH, no anxiety. Rated her depression at a 10, due to missing her family. A: Patient was slightly tangential when speaking of her family and ex . Has been interacting on unit and is expecting her daughters to visit today. Continues with the belief that she is . P:Follow care plan and coordinate with outpatient providers.
[2016-08-26] MEDS: diphenhydrAMINE 50 mg Capsule PO PRN (16:29)
[2016-08-26] MEDS: LORazepam 1 mg Tablet PO PRN (17:38)
[2016-08-26] MEDS: LORazepam 2 mg Tablet PO SCH (21:35)
--- NOTE | 2016-08-26 22:16 | NUR ---
4 Hour FLORA PT very agitated this evening due to some rules in place. PT yelling in her room about her dissatisfaction with restrictions in place. Yelling about suing everyone and how she needs to "get out of this f.... place." THis RN listened to her for about 15 minutes and she did calm down a bit. Currently she is laying in her bed. Pt took all of her flora meds and prn's available per pt request. PT has returned to her pressured speech, invasive behavior and aggressive methods of communication since being off of the depakote. Will CTM pt with current POC and monitor for any new A/R.
--- NOTE | 2016-08-27 03:20 | NUR ---
PRN medication Pt awoke c/o knee pain rated 8/10. She requested and received Ibuprofen 800 mg po prn and Methocarbamol 750 mg po prn for pain. Will assess medication effect.
--- NOTE | 2016-08-27 06:21 | NUR ---
Sleep Pain medication reported as being helpful. Pain decreased to 4/10. Broken sleep of 5.75 hours.
[2016-08-27] MEDS: diphenhydrAMINE 50 mg Capsule PO SCH ×2 (07:42→23:24)
[2016-08-27] MEDS: Pantoprazole 40 mg ER24 Tablet PO SCH (07:42)
[2016-08-27] MEDS: [UNRECOGNIZED DRUG - OTHER] MUC_MEMBRM SCH ×4 (07:52→22:00)
[2016-08-27] MEDS: TRIAMCINOLONE 0.1% MUC_MEMBRM SCH ×4 (07:52→22:00)
[2016-08-27] MEDS: HYDROcodone-APAP 5-325 mg Tablet PO PRN ×3 (10:22→23:24)
--- NOTE | 2016-08-27 12:10 | NUR ---
Day shift note S: "I'm going to romana these doctors for keeping me here so long". O: Pt. happy this am; speaking to RN about maternity dress/baby; intermittently upset, mad at the doctors that she is being kept here against her will, states she has an uncle who owns collections [employer] and he is going to help her romana. A: Pt. states her depression is 10/10; out of room most of shift; played football with patients; conversing well with other patients and staff. P: Scheduled and prn medications given; continue to encourage pt. to express feelings and concerns.
[2016-08-27 12:50] VITALS: BP 135/75; PULSE 66; RESP 16
--- NOTE | 2016-08-27 13:02 | PCM.PNPSY ---
Subjective Date of Service Aug 27, 2016 Subjective I spent 30 minutes both reviewing treatment plan with our clinical team, interviewing the patient and providing supportive/educational psychotherapy. I spent more than 50% of the time counseling the patient. I reviewed the treatment plan with the patient and discussed options available including the potential risks, benefits and side effects. Today Malu reports that she slept very well, about 6 hours. She denies anxiety and/or depression. She is taking her scheduled psych meds as well as PRN meds and reports no side effects. According to staff, Malu has been active and participating well in one-to-one unit and group activities. Staff also reports that she has remained less intrusive and is been more appropriate on the unit. Mental Status Exam Vital Signs Vital Signs Date Time Temp Pulse Resp B/P Pulse Ox O2 Delivery O2 Flow Rate FiO2 08/27/16 12:50 36.4 66 16 135/75 Appearance: Neat/well groomed Attitude: Pleasant (generally), Cooperative Behavior: No unusual behavior Affect: Well Modulated/Appropriate Mood: Expansive, Euphoric Thought Process/Associations: Logical/Sequential, Goal Directed Speech Production: Normal Speech Rate: Normal Speech Articulation: Normal Thought Content: Somatic preoccupation, Suspicious, Perseveration Danger to Self/Suicidal Ideati: None Danger to Others: None Delusions: Paranoid (mild regarding security officers and safety at [facility]), Somatic (Endorses) Consciousness: Alert Orientation: Person, Place, Date, Situation Memory: Grossly Intact Estimate Intellectual Function: Average Basis for IQ estimate: Word use/vocabulary Attention/Concentration & Cogn: Impaired Insight: Limited Judgement: Limited Mental Health Plan The patient is a 56-year-old female with a recent psychiatric hospitalization at the [facility] (admitted 05/01/2016 and discharged on 05/19/2016). The patient had been discharged to [facility], but she had been unable to follow expectations and was demonstrating symptoms of decompensation. On admission, she presented with multiple symptoms of bipolar disorder with psychosis including distractibility, pressured speech, racing thoughts, grandiose and paranoid delusions, increased activity, and poor interpersonal boundaries with impaired judgment and insight. The patient was admitted on a revocation of a less restrictive order following failure to comply with her less restrictive order. She has been tried on a number of medications but stabilized on a combination of aripiprazole 20 mg daily and Depakote 750 mg. The patient has consistently refused Depakote and so has been continued on a combination of lorazepam and aripiprazole. The patient received her first dose of Abilify Maintena 400 mg on April 26, 2016,her second dose on May 26, 2016, and third on June 25, 2016. She refused her third dose scheduled for 2016. At present staff reports a decrease in symptoms of yahaira as well as a decrease in psychotic delusional thoughts over the past 72 hours. [place] I. Bipolar disorder, manic, with psychotic features, Posttraumatic stress disorder, Polysubstance use disorder, in early remission. [place] II. Deferred. [place] III. Hypertension, Insulin-dependent diabetes mellitus, hypothyroidism, and obesity, recent fall. [place] IV. Unknown. [place] V. Current Global Assessment of Functioning is 35 Treatments Patient is being provided with a high degree of safety through our unit structure and active adult engagement provided by our mental health professionals, mental health technicians, psychiatric nurses and myself. We are focusing on developing improved coping skills and identifying stressors that may have led to current episode. We will attempt to: * Integrate into therapeutic groups, milieu and individual therapy. * Maintain in a closely monitored and structured unit * Provide low-stimulation environment * Obtain collateral data to assist in treatment planning * Assess degree of lability of affect and impulse control * Complete safety plan * Decrease frequency of relapse and need for re-hospitalization * Denies thoughts of harm to self and/or others * Establish a consistent sleep pattern * Medication effective in stabilization of mood and/or thought process * Reduce the risk of imminent harm to self and/or others by providing a safe environment * Tolerates medication without side effects * Patient will be on the following psychiatric medications: Abilify 15 mg daily Seroquel 200 at bedtime I am attempting to encourage client to start a trial of a mood stabilizer. Education: Educate patient about recreational drug use as an etiology Educate about metabolic etiologies related to obesity Patient's legal status Patient is on a 180 day LR +2 14 day extensions of an involuntary treatment hold. Disposition: Snf care through the [facility] team Liam Dobbins MD Aug 27, 2016 13:02
--- NOTE | 2016-08-27 18:29 | NUR ---
[facility] Day Shift Pt affect and behavior mostly unchanged from previous shifts. Pt maintained behavioral control throughout the shift. Pt affect appears mostly manic, more so than noted on previous shift. Pt continues to spend most of the shift engaging in unit activities and interacting with peers throughout the shift. Pt is mostly appropriate with staff and peers when active on the unit, but remains somewhat intrusive. Pt continues to ruminate on past trauma and frequently relays the same stories of her past throughout the shift. Pt once again expresses the delusion that she is throughout the shift. Pt attended community meeting and all group activities. Pt attended all meals and ate approx 100% of all meals.
[2016-08-27] MEDS: LORazepam 1 mg Tablet PO PRN (18:40)
[2016-08-27] MEDS: LORazepam 2 mg Tablet PO SCH (23:24)
[2016-08-28] MEDS: HYDROcodone-APAP 5-325 mg Tablet PO PRN ×3 (03:16→21:48)
[2016-08-28] MEDS: LORazepam 1 mg Tablet PO PRN (03:19)
[2016-08-28] MEDS: diphenhydrAMINE 50 mg Capsule PO PRN (03:20)
--- NOTE | 2016-08-28 05:36 | NUR ---
Nursing Noc [id number] Patients mood noted to be very labile from hostile to depressed. "If the doctor doesn't get my Seroquel down to 100mg by vidya, he is going to be himself in the matias with a leaf over his little tweeter". Pt continues to have difficulty getting to sleep and remaining asleep. Taking medications as ordered, and requesting all available PRNs for sleep,pain, or anxiety. Continuing to monitor mood behavior and emotional state. Q15 minute safety checks throughout the night. CP
[2016-08-28] MEDS: [UNRECOGNIZED DRUG - OTHER] MUC_MEMBRM SCH ×4 (08:00→22:00)
[2016-08-28] MEDS: TRIAMCINOLONE 0.1% MUC_MEMBRM SCH ×4 (08:00→22:00)
[2016-08-28 08:10] VITALS: BP 133/85; PULSE 78; RESP 20
[2016-08-28] MEDS: diphenhydrAMINE 50 mg Capsule PO SCH ×2 (09:03→21:47)
[2016-08-28] MEDS: Pantoprazole 40 mg ER24 Tablet PO SCH (09:04)
[2016-08-28] MEDS: Magnesium Hydroxide 10 mL Oral Concentration PO PRN (09:06)
--- NOTE | 2016-08-28 12:51 | PCM.PNPSY ---
Subjective Date of Service Aug 28, 2016 Subjective I spent 30 minutes both reviewing treatment plan with our clinical team, interviewing the patient and providing supportive/educational psychotherapy. I spent more than 50% of the time counseling the patient. I reviewed the treatment plan with the patient and discussed options available including the potential risks, benefits and side effects. Today Malu slept poorly last night, about 2 hours. She denies anxiety and/or depression. She is taking her scheduled psych meds as well as PRN meds and reports no side effects. According to staff, Malu has been active and participating well in one-to-one unit and group activities. Staff also reports that she has remained less intrusive and is been more appropriate on the unit. Mental Status Exam Vital Signs Vital Signs Date Time Temp Pulse Resp B/P Pulse Ox O2 Delivery O2 Flow Rate FiO2 08/28/16 08:10 36.2 78 20 133/85 Appearance: Neat/well groomed Attitude: Pleasant (generally), Cooperative Behavior: No unusual behavior Affect: Well Modulated/Appropriate Mood: Expansive, Euphoric Thought Process/Associations: Logical/Sequential, Goal Directed Speech Production: Normal Speech Rate: Normal Speech Articulation: Normal Thought Content: Somatic preoccupation, Suspicious, Perseveration Danger to Self/Suicidal Ideati: None Danger to Others: None Delusions: Paranoid (mild regarding security officers and safety at [facility]), Somatic (Endorses) Consciousness: Alert Orientation: Person, Place, Date, Situation Memory: Grossly Intact Estimate Intellectual Function: Average Basis for IQ estimate: Word use/vocabulary Attention/Concentration & Cogn: Impaired Insight: Limited Judgement: Limited Mental Health Plan The patient is a 56-year-old female with a recent psychiatric hospitalization at the [facility] (admitted 05/01/2016 and discharged on 05/19/2016). The patient had been discharged to [facility], but she had been unable to follow expectations and was demonstrating symptoms of decompensation. On admission, she presented with multiple symptoms of bipolar disorder with psychosis including distractibility, pressured speech, racing thoughts, grandiose and paranoid delusions, increased activity, and poor interpersonal boundaries with impaired judgment and insight. The patient was admitted on a revocation of a less restrictive order following failure to comply with her less restrictive order. She has been tried on a number of medications but stabilized on a combination of aripiprazole 20 mg daily and Depakote 750 mg. The patient has consistently refused Depakote and so has been continued on a combination of lorazepam and aripiprazole. The patient received her first dose of Abilify Maintena 400 mg on April 26, 2016,her second dose on May 26, 2016, and third on June 25, 2016. She refused her third dose scheduled for 2016. At present staff reports a decrease in symptoms of yahaira as well as a decrease in psychotic delusional thoughts over the past 72 hours. There is some concern that she is not sleeping but she refuses to change medications without an IM threat. The staff is hoping that we can work with her in a more collaborative manner. [place] I. Bipolar disorder, manic, with psychotic features, Posttraumatic stress disorder, Polysubstance use disorder, in early remission. [place] II. Deferred. [place] III. Hypertension, Insulin-dependent diabetes mellitus, hypothyroidism, and obesity, recent fall. [place] IV. Unknown. [place] V. Current Global Assessment of Functioning is 35 Treatments Patient is being provided with a high degree of safety through our unit structure and active adult engagement provided by our mental health professionals, mental health technicians, psychiatric nurses and myself. We are focusing on developing improved coping skills and identifying stressors that may have led to current episode. We will attempt to: * Integrate into therapeutic groups, milieu and individual therapy. * Maintain in a closely monitored and structured unit * Provide low-stimulation environment * Obtain collateral data to assist in treatment planning * Assess degree of lability of affect and impulse control * Complete safety plan * Decrease frequency of relapse and need for re-hospitalization * Denies thoughts of harm to self and/or others * Establish a consistent sleep pattern * Medication effective in stabilization of mood and/or thought process * Reduce the risk of imminent harm to self and/or others by providing a safe environment * Tolerates medication without side effects * Patient will be on the following psychiatric medications: Abilify 15 mg daily Seroquel 200 at bedtime I am attempting to encourage client to start a trial of a mood stabilizer. Education: Educate patient about recreational drug use as an etiology Educate about metabolic etiologies related to obesity Patient's legal status Patient is on a 180 day LR +2 14 day extensions of an involuntary treatment hold. Disposition: [facility] care through the [facility] team Liam Dobbins MD Aug 28, 2016 12:51
--- NOTE | 2016-08-28 15:05 | NUR ---
Nursing Days Pt continues fixed delusion of being . Presents as overly bright with pressured speech. She went received Valentine 1 tab prior to her dentist appointment today. Took scheduled medications and ate breakfast and lunch. Morning BG 108. Cooperative with care. No behavioral outbursts.
--- NOTE | 2016-08-28 15:43 | NUR ---
Seed Analyst/Counselor S:"I'm doing real well today!" O: Patient denies any SI or HI, no AVH, no anxiety or depression. A: Patient had a tooth pulled today at [facility]. She stated she was in some pain but overall in a good mood. She was tangential and manic, Continues delusion about . Patient only slept for 1.75hrs. P: Follow care plan and coordinate with outpatient providers.
--- NOTE | 2016-08-28 17:07 | NUR ---
Obs Dayshift Pt was drowsy in the morning, participated in group and back to bed. Pt got a pass to go to the Dentist today, very happy and appreciative toward staff. Pt is energetic and engaged w/ peers, playing games, and going out on the patio. Calm, participating and appropriate. Engaged well w/ peers and staff. Pt continues to have grand ideas, states that she is and going to travel the world. Good ADL's, Good meals
[2016-08-28] MEDS: LORazepam 2 mg Tablet PO SCH (22:39)
[2016-08-29] MEDS: HYDROcodone-APAP 5-325 mg Tablet PO PRN ×2 (02:38→22:00)
--- NOTE | 2016-08-29 02:52 | NUR ---
mood/pain: pt. awake 0235 agitated stating "doctor said I would be on 100mg of seroquel" "I want print out of all the side effects of seroquel". pt. also c/o back pain, greater than 10/10, pt. medicated for back pain, pt. pacing in halls after 2.25 hrs of sleep.
[2016-08-29] MEDS: TRIAMCINOLONE 0.1% MUC_MEMBRM SCH ×4 (08:00→22:00)
[2016-08-29] MEDS: [UNRECOGNIZED DRUG - OTHER] MUC_MEMBRM SCH ×4 (08:00→22:00)
[2016-08-29 08:20] VITALS: BP 131/75; PULSE 67; RESP 18
[2016-08-29] MEDS: Pantoprazole 40 mg ER24 Tablet PO SCH (09:52)
[2016-08-29] MEDS: diphenhydrAMINE 50 mg Capsule PO SCH ×2 (09:53→21:58)
[2016-08-29] MEDS: Magnesium Hydroxide 10 mL Oral Concentration PO PRN (10:50)
--- NOTE | 2016-08-29 11:32 | PCM.PNPSY ---
Subjective Date of Service Aug 29, 2016 Subjective I spent 30 minutes both reviewing treatment plan with our clinical team, interviewing the patient and providing supportive/educational psychotherapy. I spent more than 50% of the time counseling the patient. I reviewed the treatment plan with the patient and discussed options available including the potential risks, benefits and side effects. Today Malu slept poorly again last night, about 5 hours. Despite this she continues to ask for decrease in her antipsychotic medications Seroquel and Abilify. She denies anxiety and/or depression. She is taking her scheduled psych meds as well as PRN meds but now complains of side effects of sedation and weight gain. According to staff, Malu has been active and participating well in one-to-one unit and group activities. Staff reports that she has been more intrusive over the past 72 hours and is requiring a lot of staff redirection.. Mental Status Exam Vital Signs Vital Signs Date Time Temp Pulse Resp B/P Pulse Ox O2 Delivery O2 Flow Rate FiO2 08/29/16 08:20 36.0 67 18 131/75 Appearance: Neat/well groomed Attitude: Pleasant (generally), Cooperative Behavior: No unusual behavior Affect: Well Modulated/Appropriate Mood: Expansive, Euphoric Thought Process/Associations: Logical/Sequential, Goal Directed Speech Production: Normal Speech Rate: Normal Speech Articulation: Normal Thought Content: Somatic preoccupation, Suspicious, Perseveration Danger to Self/Suicidal Ideati: None Danger to Others: None Delusions: Paranoid (mild regarding security officers and safety at [facility]), Somatic (Endorses) Consciousness: Alert Orientation: Person, Place, Date, Situation Memory: Grossly Intact Estimate Intellectual Function: Average Basis for IQ estimate: Word use/vocabulary Attention/Concentration & Cogn: Impaired Insight: Limited Judgement: Limited Mental Health Plan The patient is a 56-year-old female with a recent psychiatric hospitalization at the [facility] (admitted 05/01/2016 and discharged on 05/19/2016). The patient had been discharged to [facility], but she had been unable to follow expectations and was demonstrating symptoms of decompensation. On admission, she presented with multiple symptoms of bipolar disorder with psychosis including distractibility, pressured speech, racing thoughts, grandiose and paranoid delusions, increased activity, and poor interpersonal boundaries with impaired judgment and insight. The patient was admitted on a revocation of a less restrictive order following failure to comply with her less restrictive order. She has been tried on a number of medications but stabilized on a combination of aripiprazole 20 mg daily and Depakote 750 mg. The patient has consistently refused Depakote and so has been continued on a combination of lorazepam and aripiprazole. The patient received her first dose of Abilify Maintena 400 mg on April 26, 2016,her second dose on May 26, 2016, and third on June 25, 2016. She refused her third dose scheduled for 2016. Where now noticing an increase in her symptoms of yahaira as well as a return of psychotic delusional thoughts (now is back to talking about the delusion of being ). I am concerned that she is not sleeping but she refuses to change medications without an IM threat. The staff is hoping that we can work with her in a more collaborative manner. [place] I. Bipolar disorder, manic, with psychotic features, Posttraumatic stress disorder, Polysubstance use disorder, in early remission. [place] II. Deferred. [place] III. Hypertension, Insulin-dependent diabetes mellitus, hypothyroidism, and obesity, recent fall. [place] IV. Unknown. [place] V. Current Global Assessment of Functioning is 35 Treatments Patient is being provided with a high degree of safety through our unit structure and active adult engagement provided by our mental health professionals, mental health technicians, psychiatric nurses and myself. We are focusing on developing improved coping skills and identifying stressors that may have led to current episode. We will attempt to: * Integrate into therapeutic groups, milieu and individual therapy. * Maintain in a closely monitored and structured unit * Provide low-stimulation environment * Obtain collateral data to assist in treatment planning * Assess degree of lability of affect and impulse control * Complete safety plan * Decrease frequency of relapse and need for re-hospitalization * Denies thoughts of harm to self and/or others * Establish a consistent sleep pattern * Medication effective in stabilization of mood and/or thought process * Reduce the risk of imminent harm to self and/or others by providing a safe environment * Tolerates medication without side effects * Patient will be on the following psychiatric medications: Abilify 15 mg daily Seroquel 200 at bedtime I am attempting to encourage client to start a trial of a mood stabilizer. Education: Educate patient about recreational drug use as an etiology Educate about metabolic etiologies related to obesity Patient's legal status Patient is on a 180 day LR +2 14 day extensions of an involuntary treatment hold. Disposition: [facility] care through the [place] [facility] team Liam Dobbins MD Aug 29, 2016 11:32
--- NOTE | 2016-08-29 12:56 | NUR ---
Nursing Days Pt continues to be visible out on the unit participatory in unit groups and activities. She has been able to follow direction. Tearful when talking of her daughter but otherwise bright and smiling most of the shift. She c/o constipation and received MOM 10ml po @ 1050. Took scheduled medication. Delusional thought of being continues. She said she had a goal not to focus on the past and was going to try not talk about past trauma. Spent time on the patio, enjoying the company of her peers. Mood bright, tearful only when speaking of her daughter otherwise no anxiety when focused on her care on the unit.
--- NOTE | 2016-08-29 15:51 | NUR ---
Water Engineer/Counselor S:"I'm good, I'm always good!" O: Patient denies any SI or HI, no AVH, no anxiety or depression. A: Patient has been out on the unit and interacting with other patient. Agitated when on the phone with her daughter. Manic and tangential. Continues delusion. P: Follow care plan and coordinate with outpatient providers.
--- NOTE | 2016-08-29 17:23 | NUR ---
Obs Dayshift Pt is active on the unit, polite, and engaging. Pt is calm and reasonable, tearful in the morning after talking w/ one of her daughters. Pt is anxious and worried about her grandkids and her daughter relapsing. Pt is Oriented x4. Pt is hopeful about DC'ing and concerned about if she will be able to get in to a proper living situation. Good ADL's, Good meals
--- NOTE | 2016-08-29 18:27 | NUR ---
NURSING NOTE [id number] Mood: "good, I'm getting out soon" Affect: mostly pleasant, intrusive with other pts at times but otherwise appropriate Behavior: social in milieu, suntanned out on the patio, seen dancing energetically to music out in the common area, Dinner FSBS 74. Med compliant. c/o bilateral underarm rash-- slight redness noted bilaterally, appears to be d/t chafing. Calmoseptine ointment applied. Thought processes: delusional at times (re: , and perceived 10 lb weight gain over the course of the day which she attributes to Seroquel). No SI/HI, appears bright and engaged.
[2016-08-29] MEDS: LORazepam 2 mg Tablet PO SCH (21:58)
--- NOTE | 2016-08-30 04:50 | NUR ---
prog note 7-7: pt. slept well [facility], [phone].
[2016-08-30] MEDS: Pantoprazole 40 mg ER24 Tablet PO SCH (07:55)
[2016-08-30] MEDS: diphenhydrAMINE 50 mg Capsule PO SCH ×2 (07:57→20:58)
[2016-08-30] MEDS: [UNRECOGNIZED DRUG - OTHER] MUC_MEMBRM SCH ×4 (08:00→21:05)
[2016-08-30] MEDS: TRIAMCINOLONE 0.1% MUC_MEMBRM SCH ×4 (08:00→21:05)
[2016-08-30 09:13] VITALS: BP 116/74; PULSE 64; RESP 16
[2016-08-30] MEDS: LORazepam 1 mg Tablet PO PRN ×3 (10:51→15:50)
--- NOTE | 2016-08-30 12:40 | PCM.PNPSY ---
Subjective Date of Service Aug 30, 2016 Subjective I spent 30 minutes both reviewing treatment plan with our clinical team, interviewing the patient and providing supportive/educational psychotherapy. I spent more than 50% of the time counseling the patient. I reviewed the treatment plan with the patient and discussed options available including the potential risks, benefits and side effects. The session had to be terminated because patient was becoming agitated and began to posture and aggressive manner. This was all in response to my current concern about her mental and emotional state and that she is no longer taking a mood stabilizer. Today Malu slept poorly again last night, about 6 hours. Despite this she continues to ask for decrease in her antipsychotic medications Seroquel and Abilify. She denies anxiety and/or depression. She is taking her scheduled psych meds but now complains of side effects of sedation and weight gain and is asking for a decrease in Seroquel when I believe she needs to change to a more potent anti-psychotic and mood stabilizer. According to staff, Malu has been active and participating well in one-to-one unit and group activities. Staff reports that she has been more intrusive, more psychotic (she is talking at length now about being ), and is becoming increasingly paranoid and irritable over the past 72 hours. She is requiring a lot of staff redirection. Mental Status Exam Vital Signs Vital Signs Date Time Temp Pulse Resp B/P Pulse Ox O2 Delivery O2 Flow Rate FiO2 08/30/16 09:13 36.2 64 16 116/74 Appearance: Neat/well groomed Attitude: Hostile/Threatening Behavior: No unusual behavior Affect: Well Modulated/Appropriate Mood: Expansive, Euphoric Thought Process/Associations: Goal Directed, Loose Speech Production: Loud Speech Rate: Pressured Speech Articulation: Normal Thought Content: Somatic preoccupation, Suspicious, Perseveration Danger to Self/Suicidal Ideati: None Danger to Others: None Delusions: Paranoid (mild regarding security officers and safety at [facility]), Somatic (believe she is ) Consciousness: Hyper-vigilant Orientation: Person, Place, Date, Situation Memory: Grossly Intact Estimate Intellectual Function: Average Basis for IQ estimate: Word use/vocabulary Attention/Concentration & Cogn: Impaired Insight: Limited Judgement: Limited Mental Health Plan The patient is a 56-year-old female with a recent psychiatric hospitalization at the [facility] (admitted 05/01/2016 and discharged on 05/19/2016). The patient had been discharged to [facility], but she had been unable to follow expectations and was demonstrating symptoms of decompensation. On admission, she presented with multiple symptoms of bipolar disorder with psychosis including distractibility, pressured speech, racing thoughts, grandiose and paranoid delusions, increased activity, and poor interpersonal boundaries with impaired judgment and insight. The patient was admitted on a revocation of a less restrictive order following failure to comply with her less restrictive order. She has been tried on a number of medications but stabilized on a combination of aripiprazole 20 mg daily and Depakote 750 mg. The patient has consistently refused Depakote and so has been continued on a combination of lorazepam and aripiprazole. The patient received her first dose of Abilify Maintena 400 mg on April 26, 2016,her second dose on May 26, 2016, and third on June 25, 2016. She refused her third dose scheduled for 2016. Today She has significant symptoms of both psychosis and yahaira. The severities of these symptoms are significantly impairing her ability to navigate housing and social interactions. She is demonstrating multiple symptoms including distractibility, pressured speech, racing thoughts, grandiose and paranoid delusions, a high degree of activity, and poor interpersonal boundaries. Her judgment and insight remain significantly impaired. She has a tendency to escalate first verbally and then physically. The condition is chronic and has been present for the past several decades. At present the severity is of a moderate intensity. She continues to present with little insight into her mental illness or need for appropriate medications. She has only been willing to take medications that have not been helpful in stabilizing her current episode. She refuses mood stabilizers such as Depakote , Klonopin, Tegretol, lithium, Lamictal, gabapentin, or Topamax which would be necessary in order to contain her manic state. None of these can be given IM. As a result I believe that the patient will need to be in an inpatient locked unit for a prolonged period of time if she continues to refuse a mood stabilizer. I have ordered a mood stabilizer daily for [address] She continues to refuse these medications. I believe a revocation of her 90 day LRO is necessary given this lack of insight and severity of impairment. She was initially admitted on a revocation of a less restrictive order following failure to comply with her less restrictive order. She has been tried on a number of medications but had been stabilized on a combination of aripiprazole (20 mg daily) and Depakote (750 mg daily). She started aripiprazole Maintena 400 mg on April 26, 2016 (this is a long acting injectable neuroleptic) but after several doses has since refused to take this medication. Despite her last discharge to [facility] on a Sunday She reportedly rapidly deteriorated and presented to the emergency room for repeat attention on Sunday. She had been unable to work with the [facility] given her current mental and emotional state. I believe that if she is discharged on Sunday that she will rapidly require re-residential. She has a history of multiple inpatient hospitalizations and this appears to be her th [facility] alone. [place] I. Bipolar disorder, manic, with psychotic features, Posttraumatic stress disorder, Polysubstance use disorder, in early remission. [place] II. Deferred. [place] III. Hypertension, Insulin-dependent diabetes mellitus, hypothyroidism, and obesity, recent fall. [place] IV. Unknown. [place] V. Current Global Assessment of Functioning is 30 Treatments Patient is being provided with a high degree of safety through our unit structure and active adult engagement provided by our mental health professionals, mental health technicians, psychiatric nurses and myself. We are focusing on developing improved coping skills and identifying stressors that may have led to current episode. We will attempt to: * Integrate into therapeutic groups, milieu and individual therapy. * Maintain in a closely monitored and structured unit * Provide low-stimulation environment * Obtain collateral data to assist in treatment planning * Assess degree of lability of affect and impulse control * Complete safety plan * Decrease frequency of relapse and need for re-hospitalization * Denies thoughts of harm to self and/or others * Establish a consistent sleep pattern * Medication effective in stabilization of mood and/or thought process * Reduce the risk of imminent harm to self and/or others by providing a safe environment * Tolerates medication without side effects * Patient will be on the following psychiatric medications: Continue Abilify 15 mg daily Increase Seroquel to 400 at bedtime Restart depakote at 250mg tid. (offer patient med three times) I am attempting to encourage client to start a trial of a mood stabilizer. Education: Educate patient about recreational drug use as an etiology Educate about metabolic etiologies related to obesity Patient's legal status Patient is on a 180 day LR +2 14 day extensions of an involuntary treatment hold. I am filing for a 180 day LRO revocation this sunday due to patient's condition worsening as a result of refusing to take Disposition: Long Term care through the [facility] team Liam Dobbins MD Aug 30, 2016 12:40
[2016-08-30] MEDS: Magnesium Hydroxide 10 mL Oral Concentration PO PRN (13:05)
--- NOTE | 2016-08-30 13:54 | NUR ---
Nursing Note [id number] Behavior S/O: Pt has good appetite. Pt out in milieu with peers. Conversation is pressured & agitated. Pt states, "I'm going to get under 200 lbs even though I'm ....[facility]. They messed up my knee and my hip....They put me on all this medicine. If my baby is retarded I'm going to [facility] the doctor." Pt received Motrin after breakfast for "hurting all over....It's a little better now." Pt became more upset after meeting with psychiatrist. Pt requested Ativan 1 mg at 1051 & was able to calm down for several hours. She is currently becoming more upset. Diversional activities offered. Pt out on patio. A: Pt remains delusional. P: Provide supportive environment. Monitor medications & effects.
--- NOTE | 2016-08-30 16:23 | NUR ---
[id number]. nurs. Pt offered newly ordered depakote 250mg, refused ,stating I'm highly allergic to that ,who ordered that , [facility] am [facility], I'm not taking that stuff. Pt agitated ,yelling and pacing, pt with 1: several staff, security present . Pt offered and accepted 1mg of ativan stated that she needed 2 mg ,Dr advised ordered 1-2mg of ativan for severe anxiety and pt given further 1mg. Medication and time spent in conversation with staff effective for reducing pt's distress.
--- NOTE | 2016-08-30 18:10 | NUR ---
[facility] Day Shift Pt affect and behavior mostly unchanged from previous shifts. Pt maintained behavioral control throughout the shift. Pt affect appears mostly manic, more so than noted on previous shift. Pt continues to spend most of the shift engaging in unit activities and interacting with peers throughout the shift. Pt is mostly appropriate with staff and peers when active on the unit, but remains somewhat intrusive. Pt continues to ruminate on past trauma and frequently relays the same stories of her past throughout the shift. Pt once again expresses the delusion that she is throughout the shift. Pt lost behavioral control in the afternoon, becoming angry and loud while pacing the hallways following an interaction with staff. Yue Holguin called and pt was able to de-escalate without the need for seclusion/restraint. Pt attended community meeting and all group activities. Pt attended all meals and ate approx 100% of all meals.
--- NOTE | 2016-08-30 18:35 | NUR ---
manager lvn/Counselor: S: "I don't want to take." O: Patient slept 6 hours last night per staff. Patient denies S/I and H/I. He denies auditory and visual hallucinations. Depression is "I miss my children and grandchildren." Anxiety was not rated. A: Patient is cooperative, pressured speech, suspicious, paranoid, somatic preoccupation, limited insight, limited judgment. P: Follow care plan, coordinate with out-patient providers, monitor behavior.
--- NOTE | 2016-08-30 20:42 | NUR ---
NURSING NOTE [id number] Mood: Terrible! I'm tired of the doctor f-ing with me! You can tell him that!" Affect: pressured and tearful at start of shift, calmer later Behavior: at start of shift pt. was presented w/her scheduled Depakote and became extremely agitated, refusing it, and screamed: "fuck this shit! I'm not taking this shit!" Yue Sawyer was called as her behavior was escalating and she went to her room w/several staff members and security on stand-by. Pt. given PRN Ativan 2 mg. Pt. able to calm down w/staff reassurance and medication. Later went out on the patio, and was much calmer, pleasant, and appropriate w/peers and staff for remainder of the evening. Thought processes: delusional; stated that the reason her doctor ordered Depakote for her was: "to get back at me for saying no to him when he asked me out to dinner and I said no to him when he asked me out to see Wonder Woman with him." Also continues to state she is and stated she plans to romana the hospital "if my baby comes out retarded from these meds you're giving me."
[2016-08-30] MEDS: HYDROcodone-APAP 5-325 mg Tablet PO PRN (20:59)
[2016-08-30] MEDS: LORazepam 2 mg Tablet PO SCH (21:00)
--- NOTE | 2016-08-30 21:11 | NUR ---
PT. REFUSED HS DEPAKOTE AND REFUSED FULL DOSE OF HS SEROQUEL Pt., referring to her doctor, stated "just because he can't have his way with me he's upping my meds without telling me. I bet he's gonna take me to court on Sunday and say I'm not taking my meds, isn't he? My uncle is gonna romana him. He's screwed. He'll lose his license. I'm not bipolar. I'm depressed. I've had a rough life." Agreed to take 200 mg of scheduled 400 Seroquel. Refused Depakote altogether.
--- NOTE | 2016-08-30 23:43 | NUR ---
Observations 1900 to 0700. Pt ate a snack. Pt spends free time socializing with peers and had a long shower. Pt is pressured, but pleasant during shift. Pt maintained behavioral control and showed no signs of abnormal behavior. Pt is quiet in bed. Pt respirations were observed when asleep. Staff completed 15 min close observations as ordered.
[2016-08-31] MEDS: diphenhydrAMINE 50 mg Capsule PO PRN ×2 (00:55→23:03)
--- NOTE | 2016-08-31 04:29 | NUR ---
nursing, nights, 11-7 s- i hurt. i need something. i can't do that i'm . you have to help me. o- has appeared to sleep after [id number], received 10 mg of valium and 50 mg of benadryl at 0055. received bandaids to left toes. socialized with a new peer. appeared to sleep after 0230 to 0445. assessed q 15 minutes. a- interrupted/inadequate sleep, medication helpful, generally appropriate, no apparent distress. p- monitor behavior/emotional state, quality, times and amount of sleep, use and effect of medication. yolanda
[2016-08-31] MEDS: HYDROcodone-APAP 5-325 mg Tablet PO PRN ×2 (05:56→23:04)
[2016-08-31] MEDS: diphenhydrAMINE 50 mg Capsule PO SCH (07:45)
[2016-08-31] MEDS: Pantoprazole 40 mg ER24 Tablet PO SCH (07:45)
[2016-08-31] MEDS: TRIAMCINOLONE 0.1% MUC_MEMBRM SCH ×4 (07:52→22:00)
[2016-08-31] MEDS: LORazepam 1 mg Tablet PO PRN ×2 (07:52→11:36)
[2016-08-31] MEDS: [UNRECOGNIZED DRUG - OTHER] MUC_MEMBRM SCH ×4 (07:52→22:00)
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
[2016-08-31] MEDS: Magnesium Hydroxide 10 mL Oral Concentration PO PRN (14:26)
[2016-08-31 14:40] VITALS: BP 134/80; PULSE 75; RESP 16
--- NOTE | 2016-08-31 15:39 | PCM.PNPSY ---
Subjective Date of Service Aug 31, 2016 Subjective I was unable to engage Violet liao 1 on 1 today due to anger about my medication recommendations and recommendations to the court. She wrote a note "fK OFF Dr. Dobbins". She has been becoming agitated and posturing in and aggressive manner. This was all in response to my current concern about her mental and emotional state and that she is no longer taking a mood stabilizer. She slept poorly again last night, about 4 hours. Despite this she continues to ask for decrease in her antipsychotic medications Seroquel and Abilify. She is taking her scheduled psych meds but now complains of side effects of sedation and weight gain and is asking for a decrease in Seroquel when I believe she needs to change to a more potent anti-psychotic and mood stabilizer. According to staff, Malu has been more difficult to redirect over the past 48 hours in one-to-one unit and group activities. Staff reports that she has been more intrusive, more psychotic (she is talking at length now about being ), and is becoming increasingly paranoid and irritable over the past 72 hours. She is requiring a lot of staff redirection. Current Medications Current Medications Lorazepam 1 TO 2 MG Q4H PRN PO Last administered on 08/31/16 11:36; Admin Dose 2 MG; Start 08/30/16 at 16:26 Quetiapine Fumarate 400 mg HS PO Last administered on 08/30/16 21:05; Admin Dose 200 MG; Start 08/30/16 at 21:00 Mental Status Exam Vital Signs Vital Signs Date Time Temp Pulse Resp B/P Pulse Ox O2 Delivery O2 Flow Rate FiO2 08/31/16 14:40 36.6 75 16 134/80 Appearance: Neat/well groomed Attitude: Hostile/Threatening Behavior: Distractible Affect: Labile Mood: Expansive, Dysthymic Thought Process/Associations: Loose Speech Production: Loud Speech Rate: Pressured Speech Articulation: Normal Thought Content: Somatic preoccupation, Suspicious, Perseveration Danger to Self/Suicidal Ideati: None Danger to Others: None Delusions: Paranoid (mild regarding security officers and safety at [facility]), Somatic (believe she is ) Consciousness: Hyper-vigilant Orientation: Person, Place, Date, Situation Memory: Grossly Intact Estimate Intellectual Function: Average Basis for IQ estimate: Word use/vocabulary Attention/Concentration & Cogn: Impaired Insight: Limited Judgement: Limited Mental Health Plan The patient is a 56-year-old female with a recent psychiatric hospitalization at the [facility] (admitted 05/01/2016 and discharged on 05/19/2016). The patient had been discharged to [facility], but she had been unable to follow expectations and was demonstrating symptoms of decompensation. On admission, she presented with multiple symptoms of bipolar disorder with psychosis including distractibility, pressured speech, racing thoughts, grandiose and paranoid delusions, increased activity, and poor interpersonal boundaries with impaired judgment and insight. The patient was admitted on a revocation of a less restrictive order following failure to comply with her less restrictive order. She has been tried on a number of medications but stabilized on a combination of aripiprazole 20 mg daily and Depakote 750 mg. The patient has consistently refused Depakote and so has been continued on a combination of lorazepam and aripiprazole. The patient received her first dose of Abilify Maintena 400 mg on April 26, 2016,her second dose on May 26, 2016, and third on June 25, 2016. She refused her third dose scheduled for 2016. Today She has significant symptoms of both psychosis and yahaira. The severities of these symptoms are significantly impairing her ability to navigate housing and social interactions. She is demonstrating multiple symptoms including distractibility, pressured speech, racing thoughts, grandiose and paranoid delusions, a high degree of activity, and poor interpersonal boundaries. Her judgment and insight remain significantly impaired. I was unable to engage Violet liao 1 on today due to anger about my medication recommendations and recommendations to the court. She wrote a note "fK OFF Dr. Dobbins". She has been becoming agitated and posturing in and aggressive manner. This was all in response to my current concern about her mental and emotional state and that she is no longer taking a mood stabilizer. She slept poorly again last night, about 4 hours. Despite this she continues to ask for decrease in her antipsychotic medications Seroquel and Abilify. She is taking her scheduled psych meds but now complains of side effects of sedation and weight gain and is asking for a decrease in Seroquel when I believe she needs to change to a more potent anti-psychotic and mood stabilizer. According to staff, Malu has been more difficult to redirect over the past 48 hours in one-to-one unit and group activities. Staff reports that she has been more intrusive, more psychotic (she is talking at length now about being ), and is becoming increasingly paranoid and irritable over the past 72 hours. She is requiring a lot of staff redirection. I spoke with Dr. Stephens will be assuming her care on Sunday. Both he and I agreed to testify to the Commissioner in a request for continued involuntary medications to include 1 of the 3 options: #1 IM Abilify 400 mg per month plus Depakote 6360-9652 mg per day #2 Abilify 10 mg in the morning and Seroquel 600 at bedtime #3 if client refuses the above to would recommend Thorazine injections 100 mg twice a day and 300 mg at bedtime I scheduled for a court hearing tomorrow for revocation of her 180 day LR to a 180 day MR plus E ability to give involuntary medications. [place] I. Bipolar disorder, manic, with psychotic features, Posttraumatic stress disorder, Polysubstance use disorder, in early remission. [place] II. Deferred. [place] III. Hypertension, Insulin-dependent diabetes mellitus, hypothyroidism, and obesity, recent fall. [place] IV. Unknown. [place] V. Current Global Assessment of Functioning is 30 Treatments Patient is being provided with a high degree of safety through our unit structure and active adult engagement provided by our mental health professionals, mental health technicians, psychiatric nurses and myself. We are focusing on developing improved coping skills and identifying stressors that may have led to current episode. We will attempt to: * Integrate into therapeutic groups, milieu and individual therapy. * Maintain in a closely monitored and structured unit * Provide low-stimulation environment * Obtain collateral data to assist in treatment planning * Assess degree of lability of affect and impulse control * Complete safety plan * Decrease frequency of relapse and need for re-hospitalization * Denies thoughts of harm to self and/or others * Establish a consistent sleep pattern * Medication effective in stabilization of mood and/or thought process * Reduce the risk of imminent harm to self and/or others by providing a safe environment * Tolerates medication without side effects * Patient will be on the following psychiatric medications: Continue Abilify 15 mg daily Offer Seroquel to 400 at bedtime Offer Restart depakote at 250mg tid. (offer patient med three times) I am attempting to encourage client to start a trial of a mood stabilizer. Education: Educate patient about recreational drug use as an etiology Educate about metabolic etiologies related to obesity Patient's legal status Patient is on a 180 day LR +2 14 day extensions of an involuntary treatment hold. I am filing for a 180 day LRO revocation this sunday due to patient's condition worsening as a result of refusing to take Disposition: Detention care through the [facility] transitions team Liam Dobbins MD Aug 31, 2016 15:39
--- NOTE | 2016-08-31 17:23 | NUR ---
[facility] Day Shift Pt affect and behavior mostly unchanged from previous shifts. Pt maintained behavioral control throughout the shift. Pt affect appears mostly manic, more so than noted on previous shift. Pt continues to spend most of the shift engaging in unit activities and interacting with peers throughout the shift. Pt is mostly appropriate with staff and peers when active on the unit, but remains somewhat intrusive. Pt continues to ruminate on past trauma and frequently relays the same stories of her past throughout the shift. Pt once again expresses the delusion that she is throughout the shift. Pt appears quite sullen and standoffish in the afternoon/evening, isolating from staff and peers. Pt attended community meeting and all group activities. Pt attended all meals and ate approx 100% of all meals.
--- NOTE | 2016-08-31 17:58 | NUR ---
clinical trial manager/Counselor: S: "I don't want to take the medicine that f"ing" doctor is trying to make me take!" O: Patient only slept 4.25 hours last night per staff. Patient denies S/I and H/I. She denies auditory and visual hallucinations. A: Patient is cooperative, pressured speech, suspicious, paranoid, somatic preoccupation, limited insight, limited judgment. P: Follow care plan, coordinate with out-patient providers, monitor behavior.
--- NOTE | 2016-08-31 22:59 | NUR ---
Observations 1900 to 0700 Pt attended and participated in wrap up group. Pt ate a snack. Pt showered. Pt continues to be social with peers. Pts affect more negative today and ruminates about belongings. Pt spends free time socializing with peers. Staff completed 15 min close observations as ordered.
[2016-08-31] MEDS: LORazepam 2 mg Tablet PO SCH (23:05)
--- NOTE | 2016-08-31 23:08 | NUR ---
NURS NOTE EVENING Mood: "I'm pissed." Endorses anxiety and depression. Affect: Labile. Behavior: Walking halls, lying on patio, interacting with peers. Occaisionally ranting about psychiatrists. Thought Content/Process: "Maybe if I have any girlfriends left when I get out of here, they'll throw me a baby shower." Delusional, grandiose and paranoid. Denies AH, VH. Denies SI, HI.
--- NOTE | 2016-09-01 02:08 | NUR ---
Nursing Noc Patient mood very Labile, continues to refuse Depakote and willing to take only half of prescribed Seroquel, Pt noted to have long dialogue of historical events from earlier in life when c/o unjust things occurring at this time. Continuing to monitor mood behavior and emotional state. Pt scheduled for court appearance tomorrow. CP
[2016-09-01] MEDS: LORazepam 1 mg Tablet PO PRN ×2 (02:41→09:30)
[2016-09-01] MEDS: Pantoprazole 40 mg ER24 Tablet PO SCH (07:37)
[2016-09-01] MEDS: TRIAMCINOLONE 0.1% MUC_MEMBRM SCH ×4 (08:00→22:00)
[2016-09-01] MEDS: [UNRECOGNIZED DRUG - OTHER] MUC_MEMBRM SCH ×4 (08:00→22:00)
--- NOTE | 2016-09-01 11:41 | NUR ---
Nursing Note [id number] Behavior S/O: Pt has good appetite. Pt presented by me with medication options outlined by Dr. Dobbins. Pt agitated stating, "I'm not in a good mood now. I don't want to talk to anyone....I won't take an injectable. You can't get it out of your system for a month....I'll take this [Abilify 10mg & Seroquel 600 mg]. It turns me into a walking zombie. I get up at night & walk into doors & shit." Pt able to maintain behavioral control while she was upset. Conversation tracking clear & organized with normal rate & rhythm. A: Pt has difficulty controlling mood. P: Provide supportive environment. Monitor medications & effects. Addendum: 09/01/16 at 1159 by BUDDY GODOY RN Pt has expressed she does not want to see Dr. Dobbins today.
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
[2016-09-01 15:37] VITALS: BP 130/86; PULSE 66; RESP 16
--- NOTE | 2016-09-01 21:17 | NUR ---
Observations 0900 to 2130 Pt affect and mood was friendly, emotional at times, labile and depressed. Pt speech was rapid and pressured. Pt eye contact was good. Pt was emotional and upset after court but she was able to hold it together without having an outbursts. Pt told va underwriter that she was upset about medications that she has to take but said she will take it. Pt maintained behavior throughout the shift. Pt attended group and unit activities. Pt was social with staff and peers. Pt attended meals in [facility] and ate 75% of her meals. Pt occasionally had poor boundaries with peers and staff and requires some staff redirection but better than she was. Pt was observed every 15 minutes throughout the shift as ordered.
[2016-09-01] MEDS: LORazepam 2 mg Tablet PO SCH (22:37)
[2016-09-01] MEDS: HYDROcodone-APAP 5-325 mg Tablet PO PRN (22:40)
[2016-09-02] MEDS: HYDROcodone-APAP 5-325 mg Tablet PO PRN ×2 (05:03→22:03)
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
[2016-09-02] MEDS: Pantoprazole 40 mg ER24 Tablet PO SCH (07:29)
[2016-09-02] MEDS: [UNRECOGNIZED DRUG - OTHER] MUC_MEMBRM SCH ×4 (08:00→22:00)
[2016-09-02] MEDS: TRIAMCINOLONE 0.1% MUC_MEMBRM SCH ×4 (08:00→22:00)
[2016-09-02 09:00] VITALS: BP 113/71; PULSE 81; RESP 19
[2016-09-02] MEDS: LORazepam 1 mg Tablet PO PRN (11:17)
--- NOTE | 2016-09-02 14:20 | NUR ---
Nursing Dayshift: S: "No. I'll talk to her in an hour. She's in a cranky mood today. She makes me want an Ativan." O: Patient declining to accept a call from her daughter Chelsie due to the above statement. Has been out of her room much of the shift. Pleasant on approach. Complementary to staff. Eating well at meals. Utilizing patio "for some sun". Social with peers. Received 2 mg of Ativan at 1117 for anxiety at 9/10. Effective per patient. A: Med compliant. Pleasant mood. P: CPOC. Monitor mood and behavior.
--- NOTE | 2016-09-02 15:57 | NUR ---
Paint Mixer Hand/Counselor S:"I'm in a lot of pain." O: Patient denies any SI or HI, no AVH, no anxiety or depression. Slept for 6 hours. A: Patient stated that she is tired from her medications. Patient also complained of an ingrown toenail. Patient has been walking and cleaning on the unit, and has spent time on the patio interacting with other patients. P: Follow care plan and coordinate with outpatient providers.
--- NOTE | 2016-09-02 17:47 | NUR ---
Observations 0700 to 1900 Pt attended community meeting. Pt ate a snack. Pt continues to be pressured at times and social with peers. Pt spends free time socializing. Pt showed insight when she had a stressful phone call and stated "I will cut it short if I have to. I don't want to need medication." Pt went on patio. Pt maintained behavioral control. Breakfast: 100%. Lunch: 100%. Staff completed 15 min close observations as ordered.
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
[2016-09-02] MEDS: LORazepam 2 mg Tablet PO SCH (22:01)
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
[2016-09-03] MEDS: LORazepam 1 mg Tablet PO PRN ×2 (02:26→22:57)
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
--- NOTE | 2016-09-03 05:31 | NUR ---
Nursing Note Tariff Counsel 7pm to 7am Pt showing significant progress tonight. She was able to regulate her emotions and behavior the whole shift. Participated in group, speech within normal rate, loudness and rhythm. She was supportive of peers, took her HS medications without loudly ranting about the Seroquel she is taking and insight is improving. She was overheard saying to a peer I think the doctor has put me on a high enough dose of Seroquel that I am able to sleep through the night. Pt c/o pain in her left 2nd toe which looks inflamed. Toe was cleaned, bacitracin applied and a bandage applied. Pt has a podiatry consult ordered for Sunday. Pt given 2 tabs of Archbold for hip and toe pain with good relief. Pt asleep by midnight. Pt awake at 0200 and received Motrin 800 mg for pain and Ativan 1mg po prn for anxiety. BS checked 99- Pt back to sleep at 0345. Monitor with q 15 min face checks for safety, location and accountability.
[2016-09-03] MEDS: Pantoprazole 40 mg ER24 Tablet PO SCH (07:36)
[2016-09-03 07:45] VITALS: BP 140/88; PULSE 76; RESP 19
[2016-09-03] MEDS: [UNRECOGNIZED DRUG - OTHER] MUC_MEMBRM SCH ×4 (08:58→22:57)
[2016-09-03] MEDS: TRIAMCINOLONE 0.1% MUC_MEMBRM SCH ×4 (08:58→22:57)
--- NOTE | 2016-09-03 11:07 | NUR ---
Nursing Dayshift: S: "You're half sunshine carebear and rainbow carebear!" O: Patient in a good mood this AM. Complementary to staff and peers. Ambulating the lam with peers after breakfast. Keeps track of how many laps she has walked per day and figures out how many miles per day tallied. Good appetite. Denies anxiety, depression, harmful thoughts, and hallucinations. A: Bright and cheery. Alert. Talkative on approach. P: CPOC. Monitor mood and behavior.
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
[2016-09-03] MEDS: HYDROcodone-APAP 5-325 mg Tablet PO PRN (22:57)
[2016-09-03] MEDS: LORazepam 2 mg Tablet PO SCH (22:57)
--- NOTE | 2016-09-04 04:20 | NUR ---
Nursing, NOC Pleasant and cooperative, enjoying the sunshine out on the patio at begin of shift. Interacting appropriately with select peers on unit. Participated w/ evening group. Redirectable, less med-seeking noted. Monitored Q15 min for safety, location and accountability. PRN Ibuprofen given at HS for c/o generalized pain. Left 2nd toe dressing changed after her shower: continues w/ approx 1cm round soft blister, intact. Ointment, non-adherant pad, and several bandaids applied. CTM for changes.
[2016-09-04 07:40] LABS: BASOPHILS % (AUTO) 0.1 % (0-3); MONOCYTES % (AUTO) 8.6 % (4-12); Mean Corpuscular Hemoglobin 29.1 pg (27.0-35.0); Mean Corpuscular Volume 84.6 fL (81-100); NEUTROPHILS % (AUTO) 59.9 % (40-74); Platelet Count 410 bil/L (150-400)
[2016-09-04] MEDS: [UNRECOGNIZED DRUG - OTHER] MUC_MEMBRM SCH ×4 (08:00→21:45)
[2016-09-04] MEDS: TRIAMCINOLONE 0.1% MUC_MEMBRM SCH ×4 (08:00→21:45)
[2016-09-04 08:05] VITALS: BP 116/75; PULSE 73; RESP 16
[2016-09-04] MEDS: Pantoprazole 40 mg ER24 Tablet PO SCH (09:49)
--- NOTE | 2016-09-04 15:27 | PCM.CHPPOD ---
Subjective Date of service Sep 04, 2016 History of Present Illness 56-year-old female is seen with complaint of multiple painful ingrown nails, fairly long-standing problem the most acute of which currently is the third toe left foot. Patient denies diabetes. Reason for Consultation Multiple ingrown nails Allergy Allergies: Coded Allergies: lamotrigine (Verified Allergy, Intermediate, skin rash, 12/01/14) Sulfa (Sulfonamide Antibiotics) (Verified Allergy, Unknown, 11/20/14) loxapine (Verified Allergy, Unknown, 11/20/14) zolpidem (Verified Allergy, Unknown, 11/20/14) Medications ([diphenHYDramine]) 25 MG CAPSULE 25 MG PO HS ([diphenHYDramine]) 50 MG CAPSULE 50 MG PO Q6H PRN PRN For Itching Albuterol HFA (Proair HFA) 8.5 Gm Hfa.aer.ad 2 PUFFS INHALATION Q4H PRN PRN For Shortness of Breath Aripiprazole (Abilify) 10 Mg Tablet 10 MG PO DIRECTED Take 2 tablets daily for 14 days then 1 tablet daily for 14 days Aripiprazole (Abilify Maintena Inj) 400 Mg Suser.vial 400 MG AD Monthly Next due 05/26/16 Atorvastatin (Lipitor) 40 Mg Tablet 40 MG PO DAILY Glipizide (Glipizide) 10 Mg Tablet 10 MG PO BID Ibuprofen (Ibuprofen) 400 Mg Tablet 800 MG PO TID PRN PRN For Pain Levothyroxine (Levothyroxine) 200 Mcg Tablet 200 MCG PO DAILY Lisinopril (Lisinopril) 5 Mg Tablet 5 MG PO DAILY Lorazepam (Ativan) 1 Mg Tablet 1 MG PO BID PRN PRN For Anxiety or Agitation Lorazepam (Ativan) 2 Mg Tablet 2 MG PO DIRECTED Take 1 tablet nightly for 14 days then 1/2 tablet nightly for 14 days and discontinue Metformin (Glucophage) 1,000 Mg Tablet 1,000 MG PO BID Omeprazole (Omeprazole) 40 Mg Capsule.dr 40 MG PO DAILY Temazepam (Restoril) 15 Mg Capsule 30 MG PO HS PRN PRN Insomnia Past Medical History Surgeries: No Medical History: Surgical History: Social History Occupation: The patient is and had Hx Alcohol Use: No Hx Substance Use: No Hx Tobacco Use: No Smoking Status: Unknown if Ever Smoker Podiatry Consult Exam Vital Signs Vital Sign - Last Date Time Temp Pulse Resp B/P Pulse Ox O2 Delivery O2 Flow Rate FiO2 09/04/16 08:05 36.1 73 16 116/75 Result Diagram: 09/04/16 0710 09/04/16 0710 Lab Test 05/21/16 05:07 05/21/16 05:15 06/12/16 17:38 06/17/16 15:20 Hold Urine Received (Received) Hold [place] Top Tube Received (Received) HCG Beta Subunit < 0.500mIU/mL Hepatitis B Surface Antigen Negative (Negative) Hepatitis B Core Total Antibody Negative (Negative) Hepatitis C Antibody <0.1s/co ratio (0.0-0.9) HIV (1&2) Ag and Ab, 4th Generation Non reactive (Non Reactive) Test 06/30/16 13:55 07/03/16 13:09 07/09/16 09:23 07/09/16 11:00 Prolactin 4.5ng/mL (4.8-23.3) Urine Color Straw (YELLOW) Urine Appearance Hazy (CLEAR,HAZY) Urine pH 7.0 (5.0-8.0) Urine Specific [place] 1.010 (1.003-1.035) Urine Protein Negativemg/dL (NEG,TRACE) Urine Glucose (UA) Negativemg/dL (NEGATIVE) Urine Ketones Negativemg/dL (NEGATIVE) Urine Occult Blood Negative (NEGATIVE) Urine Nitrite Negative (NEGATIVE) Urine Bilirubin Negative (NEGATIVE) Urine Urobilinogen Normalmg/dL (NORMAL) Urine Leukocyte Esterase Negative (NEGATIVE) Urine RBC 0-2/hpf (0-2) Urine WBC 0-5/hpf (0-5) Urine Epithelial Cells Occasional/hpf (NONE-MOD) Urine Crystals None seen (NONE SEEN) Urine Bacteria None/hpf (NONE-FEW) Urine Hyaline Casts None/lpf (NONE) Urine Granular Casts None seen (NONE SEEN) Urine Waxy Casts None seen (NONE SEEN) Urine Red Blood Cell Casts None seen (NONE SEEN) Urine White Blood Cell Casts None seen (NONE SEEN) Urine Mucus None seen (None Seen) Urine Trichomonas None seen (NONE SEEN) Urine Yeast None (NONE SEEN) Urinalysis Comment None Urine Culture Reflexed Not indicated Erythrocyte Sedimentation Rate 6mm/hr (0-40) Uric Acid 4.2mg/dL (2.6-7.2) Total Creatine Kinase 177U/L (21-215) Rheumatoid Factor <10.0IU/mL (0.0-13.9) Anti-Nuclear Antibody Screen Negative (Negative) Aripiprazole (Abilify) Level 130.0ng/mL (.) Test 08/15/16 10:00 09/04/16 07:10 Thyroid Stimulating Hormone (TSH) 1.210uIU/mL (0.450-4.500) Free Thyroxine 1.95ng/dL (0.82-1.77) White Blood Count 7.1th/mm3 (3.8-10.1) Red Blood Count 4.09mil/mm3 (3.90-5.20) Hemoglobin 11.9g/dL (12.0-15.6) Hematocrit 34.6% (35.0-46.0) Mean Corpuscular Volume 84.6fL (81-100) Mean Corpuscular Hemoglobin 29.1pg (27.0-35.0) Mean Corpuscular Hemoglobin Concent 34.4% (32.0-37.0) Red Cell Distribution Width 13.5% (12.3-15.4) Platelet Count 410bil/L (150-400) Neutrophils (%) (Auto) 59.9% (40-74) Lymphocytes (%) (Auto) 26.3% (14-46) Monocytes (%) (Auto) 8.6% (4-12) Eosinophils (%) (Auto) 5.0% (0-5) Basophils (%) (Auto) 0.1% (0-3) Sodium Level 130mEq/L (134-144) Potassium Level 4.8mEq/L (3.5-5.2) Chloride Level 96mEq/L (97-108) Carbon Dioxide Level 22mmol/L (18-29) Blood Urea Nitrogen 11mg/dL (6-24) Creatinine 0.61mg/dL (0.57-1.00) Estimat Glomerular Filtration Rate 146mL/min (>59) Glucose Level 116mg/dL (60-99) Calcium Level 9.0mg/dL (8.5-10.1) Total Bilirubin 0.3mg/dL (0.0-1.2) Aspartate Amino Transf (AST/SGOT) 16U/L (0-50) Alanine Aminotransferase (ALT/SGPT) 13U/L (0-32) Alkaline Phosphatase 70U/L (25-150) Total Protein 6.7g/dL (6.4-8.4) Albumin 4.3g/dL (3.4-5.0) Triglycerides Level 72mg/dL (0-149) Cholesterol Level 125mg/dL (100-199) LDL Cholesterol, Calculated 47.600mg/dL (0-99) VLDL Cholesterol 14.400mg/dL HDL Cholesterol 63mg/dL (>39) Cholesterol/HDL Ratio 1.98 (0.0-4.4) Exam General: Alert Neuro: Sensation Intact Lower Extremity Pulses: Palpable: Left Dorsalis Pedis Left Posterior Tibal Right Dorsalis Pedis Right Posterior Tibal Additional Information: Nails show mild generalized central thickening and marginal incurvation, no acute paronychia at any site. Lateral third digit margin left does show localized epidermal lysis cryptotic lateral nail margin. Pedal skin exam otherwise unremarkable. Assessment & Plan Assessment Multiple ingrown nails Problems: Plan Nails margins are debrided with partial simple avulsion of cryptotic margins were indicated, antibiotic ointment dressing applied to the third digit on the left. If symptoms recur consider partial chemical matrixectomy procedure. Patient will present to the outpatient podiatry clinic on a when necessary basis. Gilson Blanc DPM Sep 04, 2016 15:27
--- NOTE | 2016-09-04 15:35 | NUR ---
Nursing: Day shift: S: I went to court. These are the medications that I chose. Those other ones I was allergic to... They made me gain weight. For awhile I THOUGHT I was . O: Malu has been out in the milieu all day. She has pressured speech, talking incessantly. Asked for benadryl "for my allergies" but did not receive it as it is currently discontinued. At 1400, came to senior technical writer and stated that she did NOT want to receive calls from Isidra, her daughter. Also requested Ativan 2 mg. Malu then had an active time where she was dancing to [employer] and [employer]. When senior technical writer offered her Ativan 2 mg at 1500, she refused stating that "I don't need it now." Acts supportive to peers at meal and snack time. MOM 10 ml for constipation. A: Bright. Elated. Busy. Some insight that she is not . P: Continue to evaluate for therapeutic and side effects of current medication. Addendum: 09/04/16 at 1600 by RENITA HARTMANN RN Amended: Links added.
--- NOTE | 2016-09-04 15:45 | NUR ---
Feeder Driver/Counselor S:"I slept so well and I'm not tired today." O: Patient denies any SI or HI, no AVH, no anxiety or depression. A: Patient stated she was satisfied with her current medication and that she slept well and did not feel any residual drowsiness. She has been cooperative and friendly and has been out on the unit. Potential d/c for sunday, depending on housing. P: Follow care plan and coordinate with outpatient providers.
--- NOTE | 2016-09-04 17:37 | NUR ---
Observations 0900 to 2130 Pt affect and mood was friendly, bright and happy. Pt speech was rapid and pressured. Pt eye contact was good. Pt maintained behavior throughout the shift. Pt was social with staff and peers. Pt attended meals in D.R. and ate 75-80% of her meals. Pt had a disagreement with a peer and both had to go separate ways, pt was able to follow staff direction. Pt occasionally had poor boundaries with peers and staff and requires some staff redirection but she is a little better than she was. Pt was observed every 15 minutes throughout the shift as ordered.
[2016-09-04] MEDS: LORazepam 1 mg Tablet PO PRN (18:41)
[2016-09-04] MEDS: LORazepam 2 mg Tablet PO SCH (21:42)
[2016-09-04] MEDS: HYDROcodone-APAP 5-325 mg Tablet PO PRN (21:44)
--- NOTE | 2016-09-04 22:43 | PCM.PNPSY ---
Subjective Date of Service Sep 04, 2016 Subjective The patient is reporting her foot pain is significantly improved after being treated by study assistant and would like to see him on an outpatient. Patient reports that additional dose of Robaxin was helpful in reducing pain and patient slept quite well. 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 Fasting lipids all WNL. Sleep: 5 hours "really good" Appetite: fine, "high protein, low carb". Suicidal and homicidal ideation: denies Auditory hallucinations:denies Visual hallucinations: denies Other Psychotic Symptoms: NA Anxiety: 0/10 Depression: 0/10 Current Medications Current Medications Methocarbamol 500 mg DAILYWD PO Last administered on 09/04/16t 16:59; Admin Dose 500 MG; Start 09/03/16 at 17:30 Mental Status Exam Appearance: Neat/well groomed Attitude: Pleasant, Cooperative Behavior: No unusual behavior Affect: Well Modulated/Appropriate Thought Process/Associations: Goal Directed Speech Production: Normal Speech Rate: Normal Speech Articulation: Normal Thought Content: Somatic preoccupation, Perseveration Danger to Self/Suicidal Ideati: None Danger to Others: None Delusions: Somatic Hallucinations: Auditory (Denies), Visual (Denies) Consciousness: Hyper-vigilant Orientation: Person, Place, Date, Situation Memory: Grossly Intact Estimate Intellectual Function: Average Basis for IQ estimate: Word use/vocabulary Attention/Concentration & Cogn: Impaired Insight: Limited Judgement: Limited Result Diagram: 09/04/16 0710 09/04/16 0710 Mental Health Plan The patient is a 56-year-old female with a recent psychiatric hospitalization at the [facility] (admitted 05/01/2016 and discharged on 05/19/2016). The patient had been discharged to [facility], but she had been unable to follow expectations and was demonstrating symptoms of decompensation. On admission, she presented with multiple symptoms of bipolar disorder with psychosis including distractibility, pressured speech, racing thoughts, grandiose and paranoid delusions, increased activity, and poor interpersonal boundaries with impaired judgment and insight. The patient was admitted on a revocation of a less restrictive order following failure to comply with her less restrictive order. She has been tried on a number of medications but previously stabilized on a combination of aripiprazole 20 mg daily and Depakote 750 mg. The patient refused Depakote and later the patient began refusing both Abilify Maintena and aripiprazole oral more than 10 mg daily. As the patient was subtherapeutic on 400 mg and had previously required at least 20 mg daily this would likely not improved her situation. Received outside records from [facility] from where she was admitted on a revocation of a LRO on 06/19/2000 after stopping her medication, began acting bizarrely, frightening her and children. She also had charges after driving a car across a neighbors lawn and harassing police officers allegedly at their homes. She was diagnosed with Schizophrenia, Chronic paranoid type and was admitted on quetiapine 600mg and levothyroxine 0.175mg. She was tried on olanzapine as she had been prescribed this on a previous admission but had not been effective, was discontinued and changed to risperidone 6mg with quetiapine 600mg. She was noted to be uncooperative with medication, but not assaultive and did not require seclusion or restraint. The patient continues to report "allergies" to other medications due to weight gain and is refusing to take them. She had consistently refused Depakote for this reason. She has also refused, Trileptal, quetiapine, olanzapine, haloperidol, lithium and others for similar reasons. The patient has reported a number of physical ailments such as cracked hands which she reports are a side effect of all of medications, rather than her constant cleaning. Her aripiprazole level was 130 ng/mL with a therapeutic range typically an 150-300 ng/mL and typical lowest level of side effects between 110-249 ng/mL. The patient was quite agitated and delusional since receiving paperwork that a compelled medication hearing has been scheduled and has been generally hostile to this freelance writer. As the patient is on a 180 day order, the court order was required for ongoing involuntary treatment. The patient received an extension to allow for an outside expert. The patient has subsequently had court and was ordered to comply with treatment including haloperidol and divalproex. The patient appears to be responding to aripiprazole and quetiapine though may need further titration. Patient reported good results from podiatry. [place] I. Bipolar disorder, manic, with psychotic features, Posttraumatic stress disorder, Polysubstance use disorder, in early remission. [place] II. Deferred. [place] III. Paronychia left 4th toe, hypertension, Insulin-dependent diabetes mellitus, hypothyroidism, and obesity, recent fall. [place] IV. Unknown. [place] V. Current Global Assessment of Functioning is 35 Medications Aripiprazole 15mg daily hold Abilify Maintena 400 mg IM monthly, 1st given April 26, 2016, last given on 06/25/16, next due on 07/26/2016, declined Quetiapine 400mg nightly Benadryl 50 mg by mouth or IM twice a day Ativan 2 mg by mouth or IM at bedtime Lorazepam 1mg q4hrs as needed. Atorvastatin 40 mg daily. Albuterol metered dose inhaler as needed. Diphenhydramine 50 mg by mouth every 6 hours when necessary itching/cogwheeling/ EPS Glipizide 10 mg twice daily Ibuprofen 800 mg three times a day as needed. Levothyroxine 200 mcg daily. Lisinopril 5 mg daily Metformin 1000 mg twice daily Methocarbamol 500mg at dinner and 1000mg at bedtime. Methocarbamol 750 mg by mouth 3 times a day when necessary cramping Pantoprazole 40 mg daily. vitamin. Treatments 1. The patient is admitted to the inpatient unit and will be provided a safe and secure environment. 2. The patient is denying current active suicidality and is not in need of a one-to-one at this time. 3. The patient is encouraged to participate with group and milieu activities. 4. The patient will be seen by the treatment team on a daily basis to assess symptoms, side effects and response to treatment. 5. The patient received medication override for treatment. 6. Continue aripiprazole 15mg daily 7. Continue quetiapine 400mg nightly and titrate as needed. 8. Increase scheduled methocarbamol and decreased prn dosage. 9. Patient will require discharge to structured housing. Jez Stephens MD Sep 04, 2016 22:43
[2016-09-05] MEDS: LORazepam 1 mg Tablet PO PRN ×2 (01:07→15:02)
--- NOTE | 2016-09-05 03:01 | NUR ---
FLORA/NOC PT was in her normal state this flora. PT quite boisterous, even more than usual. Pt yelling that she is "getting out of here on Sunday." PT's speech is still pressured and is still "in your face." THe earlier conflict with another resident has dissipated. PT continues to c/o severe pain at HS. HEr pain is 10/10. IN fact, around 0030 pt was screaming in her room "I need help. I need help. My joints hurts so f...g bad I cant get out of bed!" This RN was currently dealing with another situation in the lam and told Malu she needed to stop yelling. Needless to say, PT became irrate and was threatening to "beat the shit out of me." PT stated "I needed you help and you didnt do shit for me." Security did come to the floor in case of further escalation, but MHA talked with her and was able to calm her. PT paced the halls for about an hour afterwards to decrease her rage. PT has been sleeping minimally again. INtrusive with everyone and has no regard for boundaries. WIll CTM with current POC and hopefully pt will be able to be placed in residential.
[2016-09-05] MEDS: HYDROcodone-APAP 5-325 mg Tablet PO PRN ×3 (06:15→22:48)
--- NOTE | 2016-09-05 07:46 | NUR ---
Nursing Note Landing Support Specialist 11pm to 7am Pt awake at start of shift, calm, pleasant and cooperative. Pt went to bed at approx. 0115 after taking robaxin 750mg, Ativan 2mg and Tylenol for pain with good relief. Pt slept through the night with minimal interruptions. Monitored pt. with q 15 minute face checks for safety, location and accountability. Monitored pt. with q 15 minute face checks for safety, location and accountability
[2016-09-05] MEDS: TRIAMCINOLONE 0.1% MUC_MEMBRM SCH ×4 (08:00→22:42)
[2016-09-05] MEDS: [UNRECOGNIZED DRUG - OTHER] MUC_MEMBRM SCH ×4 (08:00→22:42)
[2016-09-05] MEDS: Pantoprazole 40 mg ER24 Tablet PO SCH (09:41)
--- NOTE | 2016-09-05 14:50 | NUR ---
Mechanical Car Checker/Counselor S:" I love the lord, my savior." O: Patient denies any SI or HI, no AVH, no anxiety or depression. A: Patient has been pleasant and cooperative. Follow up with [facility] [place], for which the patient did not qualify. Will follow up with [facility] re: housing for patient. P: Follow care plan and coordinate with outpatient providers.
[2016-09-05] MEDS: Magnesium Hydroxide 10 mL Oral Concentration PO PRN (15:02)
[2016-09-05 15:30] VITALS: BP 116/76; PULSE 70; RESP 16
--- NOTE | 2016-09-05 16:14 | NUR ---
Nursin to 0 S: I'm going on Sunday. O: Malu is beaming regarding anticipated discharge. Became upset and anxious as she made calls about bills which have accumulated during her hospitalization. However, was able to maintain behavioral control. PRN meds; At 1500, ativan 1 mg at 1500 and MOM 10 ml. for constipation. Acts supportive to peers. Not having such pressured speech and continuous loud talking in open areas as yesterday. Still remains flamboyant, having changes outfits at least 3 times today. A/P: Approaching readiness for discharge. Addendum: 09/05/16 at 1620 by RENITA HARTMANN RN Amended: Links added.
--- NOTE | 2016-09-05 19:12 | NUR ---
Obs Dayshift Pt is slightly more calm, and easier to redirect when needed. Pt is taking time away from peers when needed. Pt is looking forward and hopeful for a DC to come soon. Pt is much less grandiose. Excitable toward some peers at times, but will leave the area, or pace the unit to get away and calm herself. Pt is still labile, pressured and restless at times. Good ADL's, Good meals
--- NOTE | 2016-09-05 22:33 | PCM.PNPSY ---
Subjective Date of Service Sep 05, 2016 Subjective The patient is in a good mood and dressed up for her appearance in court. Patient jovial with the treatment team. Patient reports pain and difficulty getting out of bed. Discussed using a wedge for her back and the patient was amenable. Patient is open to any housing in the [facility]. 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 Sleep: 3.75 hours "much better" Appetite: fine Suicidal and homicidal ideation: denies Auditory hallucinations:denies Visual hallucinations: denies Other Psychotic Symptoms: NA Anxiety: 0/10 Depression: 0/10 Mental Status Exam Vital Signs Vital Signs Date Time Temp Pulse Resp B/P Pulse Ox O2 Delivery O2 Flow Rate FiO2 09/05/16 15:30 36.2 70 16 116/76 Appearance: Neat/well groomed Attitude: Pleasant, Cooperative Behavior: No unusual behavior Affect: Well Modulated/Appropriate Mood: Euthymic, Euphoric (almost) Thought Process/Associations: Goal Directed Speech Production: Normal Speech Rate: Normal Speech Articulation: Normal Thought Content: Perseveration Danger to Self/Suicidal Ideati: None Danger to Others: None Delusions: Somatic Hallucinations: Auditory (Denies), Visual (Denies) Consciousness: Alert Orientation: Person, Place, Date, Situation Memory: Grossly Intact Estimate Intellectual Function: Average Basis for IQ estimate: Word use/vocabulary Attention/Concentration & Cogn: Impaired Insight: Limited (but improving) Judgement: Limited Result Diagram: 09/04/16 0710 09/04/16 0710 Mental Health Plan The patient is a 56-year-old female with a recent psychiatric hospitalization at the [facility] (admitted 05/01/2016 and discharged on 05/19/2016). The patient had been discharged to [facility], but she had been unable to follow expectations and was demonstrating symptoms of decompensation. On admission, she presented with multiple symptoms of bipolar disorder with psychosis including distractibility, pressured speech, racing thoughts, grandiose and paranoid delusions, increased activity, and poor interpersonal boundaries with impaired judgment and insight. The patient was admitted on a revocation of a less restrictive order following failure to comply with her less restrictive order. She has been tried on a number of medications but previously stabilized on a combination of aripiprazole 20 mg daily and Depakote 750 mg. The patient refused Depakote and later the patient began refusing both Abilify Maintena and aripiprazole oral more than 10 mg daily. As the patient was subtherapeutic on 400 mg and had previously required at least 20 mg daily this would likely not improved her situation. Received outside records from [facility] from where she was admitted on a revocation of a LRO on 06/19/2000 after stopping her medication, began acting bizarrely, frightening her and children. She also had charges after driving a car across a neighbors lawn and harassing police officers allegedly at their homes. She was diagnosed with Schizophrenia, Chronic paranoid type and was admitted on quetiapine 600mg and levothyroxine 0.175mg. She was tried on olanzapine as she had been prescribed this on a previous admission but had not been effective, was discontinued and changed to risperidone 6mg with quetiapine 600mg. She was noted to be uncooperative with medication, but not assaultive and did not require seclusion or restraint. The patient continues to report "allergies" to other medications due to weight gain and is refusing to take them. She had consistently refused Depakote for this reason. She has also refused, Trileptal, quetiapine, olanzapine, haloperidol, lithium and others for similar reasons. The patient has reported a number of physical ailments such as cracked hands which she reports are a side effect of all of medications, rather than her constant cleaning. Her aripiprazole level was 130 ng/mL with a therapeutic range typically an 150-300 ng/mL and typical lowest level of side effects between 110-249 ng/mL. The patient was quite agitated and delusional since receiving paperwork that a compelled medication hearing has been scheduled and has been generally hostile to this senior copywriter. As the patient is on a 180 day order, the court order was required for ongoing involuntary treatment. The patient received an extension to allow for an outside expert. The patient has subsequently had court and was ordered to comply with treatment including haloperidol and divalproex. The patient was continued on aripiprazole 15mg and quetiapine was titrated to 400mg with good results. Patient is no longer reporting excess sedation. Reports addition of methocarbamol 500mg at dinner has been effective with her back spasm last two nights. The patient appears to be responding to aripiprazole and quetiapine though still has some residual impulsivity. [place] I. Bipolar disorder, manic, with psychotic features, Posttraumatic stress disorder, Polysubstance use disorder, in early remission. [place] II. Deferred. [place] III. Paronychia left 4th toe, hypertension, Insulin-dependent diabetes mellitus, hypothyroidism, and obesity, recent fall. [place] IV. Unknown. [place] V. Current Global Assessment of Functioning is 35 Medications Aripiprazole 15mg daily hold Abilify Maintena 400 mg IM monthly, 1st given April 26, 2016, last given on 06/25/16, next due on 07/26/2016, declined Quetiapine 400mg nightly Benadryl 50 mg by mouth or IM twice a day Ativan 2 mg by mouth or IM at bedtime Lorazepam 1mg q4hrs as needed. Atorvastatin 40 mg daily. Albuterol metered dose inhaler as needed. Diphenhydramine 50 mg by mouth every 6 hours when necessary itching/cogwheeling/ EPS Glipizide 10 mg twice daily Ibuprofen 800 mg three times a day as needed. Levothyroxine 200 mcg daily. Lisinopril 5 mg daily Metformin 1000 mg twice daily Methocarbamol 500mg at dinner and 1000mg at bedtime. Methocarbamol 750 mg by mouth 3 times a day when necessary cramping Pantoprazole 40 mg daily. vitamin. Treatments 1. The patient is admitted to the inpatient unit and will be provided a safe and secure environment. 2. The patient is denying current active suicidality and is not in need of a one-to-one at this time. 3. The patient is encouraged to participate with group and milieu activities. 4. The patient will be seen by the treatment team on a daily basis to assess symptoms, side effects and response to treatment. 5. The patient received medication override for treatment. 6. Continue aripiprazole 15mg daily 7. Continue quetiapine 400mg nightly and titrate as needed. 8. Increase scheduled methocarbamol and decreased prn dosage. 9. Patient will require discharge to structured housing. Jez Stephens MD Sep 05, 2016 22:33
[2016-09-05] MEDS: LORazepam 2 mg Tablet PO SCH (22:43)
--- NOTE | 2016-09-06 06:05 | NUR ---
Night [id number] Pt participated in wrap up group with peers and answered questions appropriately. No behavioral outburst or negative interaction with peers or staff. Pt was calm and not agitated or pacing the hallway at HS. No suicidal ideations or acting out. Pt was given PRN [place] 5/325mg x2 tabs for general pain per request and went to asleep thereafter. Pt woke up around 0310 singing, Chelsy Clemens is coming to town while in bed. Sodium 130. Slept 4.5 hrs. Continue to monitor for mood changes, emotional wellbeing, and q15min checks for safety. Care continues.
[2016-09-06] MEDS: Pantoprazole 40 mg ER24 Tablet PO SCH (07:54)
[2016-09-06] MEDS: [UNRECOGNIZED DRUG - OTHER] MUC_MEMBRM SCH ×4 (07:56→21:46)
[2016-09-06] MEDS: TRIAMCINOLONE 0.1% MUC_MEMBRM SCH ×4 (07:56→21:46)
[2016-09-06] MEDS: LORazepam 1 mg Tablet PO PRN ×2 (08:00→21:48)
[2016-09-06 09:14] VITALS: BP 128/69; PULSE 78; RESP 17
--- NOTE | 2016-09-06 12:20 | NUR ---
Nursing Day Shift S: O: A: P: CPOC. Monitor mood and behavior.
--- NOTE | 2016-09-06 12:33 | NUR ---
Nursing Dayshift: S: "I need an ativan. These guys are making me anxious." O: Patient received Ativan 1 mg this AM prior to breakfast. Rated anxiety at that time a 6/10. Later AM stated it was a zero. Denies depression, harmful thoughts, and hallucinations. Good appetite at meals. Complementary to staff and peers. Ambulating lam for exercise "the Seroquel makes me gain weight." Social with peers. A: Med compliant. Smiling during interaction. P: CPOC. Monitor mood and behavior.
--- NOTE | 2016-09-06 15:55 | NUR ---
Obs Dayshift Pt continues with little change. Ready to DC on Sunday. Calm, engaging, participating. Can be loud and excitable at times. Pt continues w/ treatment plan. Good ADL's, Good meals
[2016-09-06] MEDS: HYDROcodone-APAP 5-325 mg Tablet PO PRN (21:49)
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
[2016-09-07] MEDS: LORazepam 1 mg Tablet PO PRN ×2 (03:32→21:18)
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
[2016-09-07] MEDS: Pantoprazole 40 mg ER24 Tablet PO SCH (07:20)
[2016-09-07] MEDS: [UNRECOGNIZED DRUG - OTHER] MUC_MEMBRM SCH ×4 (08:00→22:00)
[2016-09-07] MEDS: TRIAMCINOLONE 0.1% MUC_MEMBRM SCH ×4 (08:00→22:00)
[2016-09-07 08:10] VITALS: BP 111/79; PULSE 72; RESP 16
--- NOTE | 2016-09-07 14:16 | NUR ---
Nursing Dayshift: S: "Did I tell you how to make oysters?" O: Patient very talkative with staff and peers. Hard to get a word in edge daniel. Eating well at meals. Attending group activities. Denies anxiety, depression, harmful thoughts, and hallucinations. A: Busy on unit. Complementary to staff. P: CPOC. Monitor mood and behavior.
--- NOTE | 2016-09-07 16:20 | NUR ---
Mohs Surgeon/Counselor S:"Everything is the same." O: Patient denies any SI or HI, no AVH, no anxiety or depression. A: Patient has been pleasant and cooperative with staff and patients. She states that she feels better and has been compliant. P: Follow care plan and coordinate with outpatient providers.
--- NOTE | 2016-09-07 20:45 | NUR ---
Observations 0900 to 2130 Pt affect and mood remains the same as previous days. Pt was emotional throughout the day and would cry and sob when talking about family, life and her past. Pt speech was rapid and a little pressured. Pt eye contact was good. Pt maintained behavior throughout the shift. Pt was social with staff and peers. Pt attended meals in [facility]. and ate 75-80% of her meals. Pt was social with staff and peers. Pt attended group and unit activities. Pt was observed every 15 minutes throughout the shift as ordered.
[2016-09-07] MEDS: HYDROcodone-APAP 5-325 mg Tablet PO PRN (22:44)
--- NOTE | 2016-09-07 22:48 | PCM.PNPSY ---
Subjective Date of Service Sep 07, 2016 Subjective The patient reports that she is waiting for an answer back from the /women's longterm as to whether she was accepted. She is overall in good spirits and optimistic about her future. 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 Patient reports pain and difficulty getting out of bed. Patient reports no particular side effects to medication. Sleep: reports woke up at night due to pain. Appetite: good, eating low carb Suicidal and homicidal ideation: denies Auditory hallucinations:denies Visual hallucinations: denies Other Psychotic Symptoms: NA Anxiety: 0/10 Depression: 0/10 Mental Status Exam Appearance: Neat/well groomed Attitude: Pleasant, Cooperative Behavior: No unusual behavior Affect: Well Modulated/Appropriate Mood: Euthymic Thought Process/Associations: Logical/Sequential, Goal Directed Speech Production: Normal Speech Rate: Normal Speech Articulation: Normal Thought Content: Perseveration Danger to Self/Suicidal Ideati: None Danger to Others: None Delusions: Somatic Hallucinations: Auditory (Denies), Visual (Denies) Consciousness: Alert Orientation: Person, Place, Date, Situation Memory: Grossly Intact Estimate Intellectual Function: Average Basis for IQ estimate: Word use/vocabulary Attention/Concentration & Cogn: Impaired Insight: Limited (but improving) Judgement: Limited Result Diagram: 09/04/16 0710 09/04/16 0710 Mental Health Plan The patient is a 56-year-old female with a recent psychiatric hospitalization at the [facility] (admitted 05/01/2016 and discharged on 05/19/2016). The patient had been discharged to [facility], but she had been unable to follow expectations and was demonstrating symptoms of decompensation. On admission, she presented with multiple symptoms of bipolar disorder with psychosis including distractibility, pressured speech, racing thoughts, grandiose and paranoid delusions, increased activity, and poor interpersonal boundaries with impaired judgment and insight. The patient was admitted on a revocation of a less restrictive order following failure to comply with her less restrictive order. She has been tried on a number of medications but previously stabilized on a combination of aripiprazole 20 mg daily and Depakote 750 mg. The patient refused Depakote and later the patient began refusing both Abilify Maintena and aripiprazole oral more than 10 mg daily. As the patient was subtherapeutic on 400 mg and had previously required at least 20 mg daily this would likely not improved her situation. Received outside records from [facility] from where she was admitted on a revocation of a LRO on 06/19/2000 after stopping her medication, began acting bizarrely, frightening her and children. She also had charges after driving a car across a neighbors lawn and harassing police officers allegedly at their homes. She was diagnosed with Schizophrenia, Chronic paranoid type and was admitted on quetiapine 600mg and levothyroxine 0.175mg. She was tried on olanzapine as she had been prescribed this on a previous admission but had not been effective, was discontinued and changed to risperidone 6mg with quetiapine 600mg. She was noted to be uncooperative with medication, but not assaultive and did not require seclusion or restraint. The patient continues to report "allergies" to other medications due to weight gain and is refusing to take them. She had consistently refused Depakote for this reason. She has also refused, Trileptal, quetiapine, olanzapine, haloperidol, lithium and others for similar reasons. The patient has reported a number of physical ailments such as cracked hands which she reports are a side effect of all of medications, rather than her constant cleaning. Her aripiprazole level was 130 ng/mL with a therapeutic range typically an 150-300 ng/mL and typical lowest level of side effects between 110-249 ng/mL. The patient was quite agitated and delusional since receiving paperwork that a compelled medication hearing has been scheduled and has been generally hostile to this clinical writer. As the patient is on a 180 day order, the court order was required for ongoing involuntary treatment. The patient received an extension to allow for an outside expert. The patient has subsequently had court and was ordered to comply with treatment including haloperidol and divalproex. The patient was continued on aripiprazole 15mg and quetiapine was titrated to 400mg with good results. Patient is no longer reporting excess sedation. Reports addition of methocarbamol 500mg at dinner has been effective with her back spasm last two nights. The patient appears to be responding to aripiprazole and quetiapine though still has some residual impulsivity. Patient awaiting housing placement. [place] I. Bipolar disorder, manic, with psychotic features vs. Schizoaffective disorder, Posttraumatic stress disorder, Polysubstance use disorder, in early remission. [place] II. Deferred. [place] III. Paronychia left 4th toe, hypertension, Insulin-dependent diabetes mellitus, hypothyroidism, and obesity, recent fall. [place] IV. Unknown. [place] V. Current Global Assessment of Functioning is 35 Medications Aripiprazole 15mg daily hold Abilify Maintena 400 mg IM monthly, 1st given April 26, 2016, last given on 06/25/16, next due on 07/26/2016, declined Quetiapine 400mg nightly Benadryl 50 mg by mouth or IM twice a day Ativan 2 mg by mouth or IM at bedtime Lorazepam 1mg q4hrs as needed. Atorvastatin 40 mg daily. Albuterol metered dose inhaler as needed. Diphenhydramine 50 mg by mouth every 6 hours when necessary itching/cogwheeling/ EPS Glipizide 10 mg twice daily Ibuprofen 800 mg three times a day as needed. Levothyroxine 200 mcg daily. Lisinopril 5 mg daily Metformin 1000 mg twice daily Methocarbamol 500mg at dinner and 1000mg at bedtime. Methocarbamol 750 mg by mouth 3 times a day when necessary cramping Pantoprazole 40 mg daily. vitamin. Treatments 1. The patient is admitted to the inpatient unit and will be provided a safe and secure environment. 2. The patient is denying current active suicidality and is not in need of a one-to-one at this time. 3. The patient is encouraged to participate with group and milieu activities. 4. The patient will be seen by the treatment team on a daily basis to assess symptoms, side effects and response to treatment. 5. The patient received medication override for treatment. 6. Continue aripiprazole 15mg daily 7. Continue quetiapine 400mg nightly and titrate as needed. 8. Continue other medications as prescribed 9. Patient may be discharged to a /women's longterm. Jez Stephens MD Sep 07, 2016 22:47
[2016-09-08] MEDS: LORazepam 1 mg Tablet PO PRN ×2 (04:38→17:11)
--- NOTE | 2016-09-08 04:58 | NUR ---
behavior: pt. was tearful, anxious, angry, talkative, pt.stated she "spoke with her daughter yesterday evening and was upset because she wasn't going to let her mom stay there for two weeks after all she has done for her."
[2016-09-08] MEDS: HYDROcodone-APAP 5-325 mg Tablet PO PRN (05:37)
--- NOTE | 2016-09-08 05:47 | NUR ---
nursing, nights, 11-7 s- he's up and needs something. i don't want too much. that's perfect. thank you. o- has appeared to sleep after midnight. up at 0410 received 800mg of motrin and 2 mg of ativan. wanted blood sugar checked and it was 99. socialized with peers and staff. received 1 norco at 0540. currently socializing in the dinning room. assessed q 15 minutes. a- interupted sleep, no apparent distress. p- monitor behavior/emotional state, quality, times and amount of sleep, use and effect of medication. yolanda
[2016-09-08] MEDS: Pantoprazole 40 mg ER24 Tablet PO SCH (07:25)
[2016-09-08] MEDS: TRIAMCINOLONE 0.1% MUC_MEMBRM SCH ×2 (08:00→12:00)
[2016-09-08] MEDS: [UNRECOGNIZED DRUG - OTHER] MUC_MEMBRM SCH ×2 (08:00→12:00)
[2016-09-08] MEDS: Magnesium Hydroxide 10 mL Oral Concentration PO PRN (08:58)
[2016-09-08 11:43] VITALS: BP 124/77; PULSE 70; RESP 16
--- NOTE | 2016-09-08 14:24 | NUR ---
Nursing Dayshift: S: "I'm going to my daughter's house today!" O: Patient excited about having a place to go today. Has been in a good mood all shift. Positive focused. Eating well at meals. Social with peers. Denies anxiety, depression, harmful thoughts, and hallucinations. Discharge planned for 1600. A: Bright and cheery mood. P: CPOC. Monitor mood and behavior.
--- NOTE | 2016-09-08 15:49 | PCM.DIMED ---
Discharge Instructions Date of Service Sep 08, 2016 Dates of Hospitalization May 21, 2016 at 16:16 Discharge Diagnosis Discharge Diagnosis [place] I. Bipolar disorder, manic, with psychotic features vs. schizoaffective disorder (by history) Posttraumatic stress disorder, Polysubstance use disorder, in early remission. [place] II. Deferred. [place] III. Ingrown toenail left 4th toe (resolved), hypertension, Insulin- dependent diabetes mellitus, hypothyroidism, and obesity, dental decay. [place] IV. Moderate [place] V. Current Global Assessment of Functioning is 50 Test Results Test Results CBC Test 07/09/16 09:23 09/04/16 07:10 Erythrocyte Sedimentation Rate 6mm/hr (0-40) White Blood Count 7.1th/mm3 (3.8-10.1) Red Blood Count 4.09mil/mm3 (3.90-5.20) Hemoglobin 11.9g/dL (12.0-15.6) Hematocrit 34.6% (35.0-46.0) Mean Corpuscular Volume 84.6fL (81-100) Mean Corpuscular Hemoglobin 29.1pg (27.0-35.0) Mean Corpuscular Hemoglobin Concent 34.4% (32.0-37.0) Red Cell Distribution Width 13.5% (12.3-15.4) Platelet Count 410bil/L (150-400) Neutrophils (%) (Auto) 59.9% (40-74) Lymphocytes (%) (Auto) 26.3% (14-46) Monocytes (%) (Auto) 8.6% (4-12) Eosinophils (%) (Auto) 5.0% (0-5) Basophils (%) (Auto) 0.1% (0-3) CMP Test 05/21/16 05:15 06/12/16 17:38 06/30/16 13:55 07/09/16 09:23 Hold [place] Top Tube Received HCG Beta Subunit < 0.500mIU/mL Prolactin 4.5ng/mL Uric Acid 4.2mg/dL Total Creatine Kinase 177U/L Test 08/15/16 10:00 09/04/16 07:10 Thyroid Stimulating Hormone (TSH) 1.210uIU/mL Free Thyroxine 1.95ng/dL Sodium Level 130mEq/L Potassium Level 4.8mEq/L Chloride Level 96mEq/L Carbon Dioxide Level 22mmol/L Blood Urea Nitrogen 11mg/dL Creatinine 0.61mg/dL Estimat Glomerular Filtration Rate 146mL/min Glucose Level 116mg/dL Calcium Level 9.0mg/dL Total Bilirubin 0.3mg/dL Aspartate Amino Transf (AST/SGOT) 16U/L Alanine Aminotransferase (ALT/SGPT) 13U/L Alkaline Phosphatase 70U/L Total Protein 6.7g/dL Albumin 4.3g/dL Triglycerides Level 72mg/dL Cholesterol Level 125mg/dL LDL Cholesterol, Calculated 47.600mg/dL VLDL Cholesterol 14.400mg/dL HDL Cholesterol 63mg/dL Cholesterol/HDL Ratio 1.98 Diet Discharge Diet: Low fat, Low Sodium, Diabetic Activity Discharge Activity: No restrictions Patient Instructions Patient Instructions Should you have any thoughts of harming yourself or others, please call the crisis line, your provider, 911, or go to the nearest Emergency Department. Do not change or discontinue your medications without discussing with your provider. You have been given a prescription for 30 days supply of your new medication Follow-up plan Per counselor instructions, Magnolia Nolan at 1pm on 09/11/16 or with Jez Cannon MD Sep 08, 2016 15:49
[2016-09-08] MEDS ORDERED: DIAZ5TAB PO (16:18)
[2016-09-08] MEDS ORDERED: LEVO200T6 PO (16:18)
[2016-09-08] MEDS ORDERED: ROB500 PO ×3 (16:18)
[2016-09-08] MEDS ORDERED: METF1000 PO (16:18)
[2016-09-08] MEDS ORDERED: QUET100T69 PO (16:18)
[2016-09-08] MEDS ORDERED: GLIP10TA10 PO (16:18)
[2016-09-08] MEDS ORDERED: LIP40 PO (16:18)
[2016-09-08] MEDS ORDERED: HYDR-4003 PO (16:18)
[2016-09-08] MEDS ORDERED: LISI-571 PO (16:18)
[2016-09-08] MEDS ORDERED: OMEP40CA36 PO (16:18)
[2016-09-08] MEDS ORDERED: IBUP400T22 PO (16:18)
[2016-09-08] MEDS ORDERED: DOCU-41 PO (16:18)
[2016-09-08] MEDS ORDERED: ARIP15TA2 PO (16:18)
--- NOTE | 2016-09-08 18:30 | NUR ---
DISCHARGE NOTE Pt. discharged from unit @ 18:10 with her daughter Yee with the plan to go to Yee's home for the weekend and then be under the care of the PACT team on Sunday. Pt.'s signed all of her discharge paperwork and was able to repeat back her discharge instructions re: follow-up appointments and where to get her prescriptions filled (daughter was updated as well).
--- NOTE | 2016-09-08 21:17 | NUR ---
manager discovery/Counselor: S/O: Patient slept 4.25 hours last night per staff. Patient denies S/I and H/I. He denies auditory and visual hallucinations. Depression is 0/10 and anxiety is 0/10. Out-patient appointments: [facility], Anmol, 09/09/16 at 10:00am via telephone and [facility] Team, 09/11/16 at 1:00pm at patient's residence. This magazine writer [facility] with [facility] about working with [facility] for housing because patient is only allowed to stay at daren Fraire's home until 09/12/16. [facility] will work with [facility] to find housing for patient. Patient will talk to the Crisis Team ([facility]), over the weekend until she sees AshleyT 09/11/16. A: Patient is cooperative, hopeful, future oriented. P: Follow care plan, coordinate with out-patient providers.
--- NOTE | 2016-09-10 23:44 | PCM.DC.MED ---
Discharge Summary Date of Service Sep 08, 2016 Dates of Hospitalization Date of Hospital Admission May 21, 2016 at 16:16 Date of Discharge: Sep 08, 2016 Providers: Admitting Physician: Leeroy Stark MD Primary Care Physician: Gordo Benoit MD Attending Physician: Leeroy Stark MD Diagnosis at Time of Discharge Diagnosis at Time of Discharge [employer] I. Bipolar disorder, manic, with psychotic features vs. schizoaffective disorder (by history) Posttraumatic stress disorder, Polysubstance use disorder, in early remission. [employer] II. Deferred. [employer] III. Ingrown toenail left 4th toe (resolved), hypertension, Insulin- dependent diabetes mellitus, hypothyroidism, and obesity, dental decay. [employer] IV. Moderate [employer] V. Current Global Assessment of Functioning is 50 Consultations Medicine, orthopedics, podiatry, dietary, dental. Procedures XRay, CTs & MRIs Date of Service: 07/09/16 1010 PROCEDURE: MRI BRAIN WITHOUT CONTRAST ([id number]) INDICATIONS: ground level fall TECHNIQUE: Noncontrast axial T1 spin echo, axial T2 fast spin echo, sagittal and axial FLAIR, coronal T2 fast spin echo, axial gradient echo, axial diffusion and ADC through the brain. COMPARISON: None. FINDINGS: Image quality: Excellent. CSF Spaces: Basal cisterns are patent. No extra-axial fluid collections. Ventricles are normal in size and shape. Brain: No intracranial masses or hemorrhage. Sawyer/white matter interface is normal. Brainstem appears normal. Diffusion-weighted images demonstrate no acute ischemic insult. No chronic ischemic insults. Normal intravascular flow voids are present. Skull and face: Calvarium has normal marrow signal. Orbits appear normal. Sinuses: Sinuses and mastoids are clear except at the right ethmoid air cells we are fluid signal is present without adjacent inflammation, subtotally opacifying the right mastoid air cells. IMPRESSION: No trauma found. Note is made of a small degree of mucosal thickening involving the maxillary sinuses and ethmoid air cells there is subtotal opacification of the right mastoid air cells. Please correlate for whether acute versus chronic mastoiditis is present. There is no sign of inflammation extending from the mastoid air cells into adjacent structures. Date of Service: 07/09/16 1010 PROCEDURE: MRI CERVICAL SPINE WITHOUT CONTRAST ([id number]) INDICATIONS: ground level fall TECHNIQUE: Noncontrast sagittal T1 spin echo and T2 fast spin echo, sagittal STIR, foraminal oblique sagittal T2 fast spin echo, and axial gradient echo or T2 fast spin echo through the cervical spine. COMPARISON: None. FINDINGS: Image quality: A small degree of patient motion during image acquisition does mildly degrades quality of visualization. The study is diagnostic. Alignment and Curvature: There is normal bony alignment. Bone Marrow: Marrow demonstrates normal overall signal. Spinal Cord: Visualized spinal cord has normal size and signal. No cerebellar tonsillar herniation. Paraspinous Soft Tissues: No paravertebral masses. Prevertebral soft tissues are normal in thickness. Spinal canal and neural foramen: No spinal stenosis found. Minimal facet degeneration without visualized nerve root impingement. IMPRESSION: No trauma found. No evidence of traumatic disc herniation. There is a minimal degree of degenerative disc height reduction and disc desiccation seen from C3 through C6, expected for age. No nerve root impingement is suspected. Dictated by: Javier Butts M.D. on 07/09/2016 at 15:19 Approved by: Javier Butts M.D. on 07/09/2016 at 15:22 Date of Service: 06/14/16 1632 PROCEDURE: X-RAY RIGHT KNEE, THREE VIEWS ([id number]) INDICATIONS: GROUND LEVEL FALL TECHNIQUE: 3 views of the knee were acquired. COMPARISON: [facility], , KNEE 3V RIGHT, 12/20/2011, 10:06. FINDINGS: Bones: No fractures or dislocations. No suspicious bony lesions. Soft tissues: Suspect small suprapatellar bursal joint effusion. No suspicious soft tissue calcifications. There is soft tissue swelling over the infrapatellar space ventral to the patellar tendon but no foreign body in this area is found. IMPRESSION: A small degree of degenerative knee joint osteoarthritic change can be seen, no acute, to the osseous structures is found. There is, however, mild swelling in the soft tissues ventral to the patellar tendon. There may be a small joint effusion in the suprapatellar bursal space. Please note that if hidden osseous injury or meniscal/ligamentous injury involving the knee would be most accurately detected by MR scanning. Dictated by: Javier Butts M.D. on 06/14/2016 at 18:36 Approved by: Javier Butts M.D. on 06/14/2016 at 18:38 Date of Service: 06/04/16 1119 PROCEDURE: X-RAY RIGHT HAND, TWO VIEWS ([id number]) INDICATIONS: Reported injury DIP joint x 3 mo old, inc inflam TECHNIQUE: 2 views of the hand(s) acquired. COMPARISON: None. FINDINGS: Bones: Fracture of the base of the third distal phalange noted. Fracture extends into the third distal interphalangeal joint. Carpal bones are normally aligned. No suspicious bony lesions. Soft tissues: No suspicious soft tissue calcifications. IMPRESSION: Displaced, intra-articular distal third phalange fracture. Dictated by: Kim Griffith MD, PhD on 06/04/2016 at 12:24 Approved by: Kim Griffith MD, PhD on 06/04/2016 at 12:25 Other Diagnostics Date of Service: 07/02/16 1145 PROCEDURE: US PELVIC SONOGRAM + TRANSVAGINAL SONOGRAM INDICATIONS: DISCOMFORT TECHNIQUE: Real-time scanning was performed of the pelvic organs, with image documentation. Additional endovaginal scanning was necessary due to incomplete visualization of the adnexal and endometrial structures by transabdominal scanning. COMPARISON: None. FINDINGS: Transabdominal scanning: Limited scanning through the kidneys shows no hydronephrosis. No pathologic free abdominal or pelvic fluid. Endovaginal scanning: Uterus: Uterus is normal in size at 8.4 x 4.7 x 3.2 cm. uterus has heterogeneous echotexture with several small calcifications possibly related to uterine fibroids. The endometrium measures 3.4 mm in combined thickness. Ovaries: Adnexa are not visualized and cannot be evaluated. IMPRESSION: 1. Suboptimal examination. Patient was unable to void and imaging was performed with a distended urinary bladder. 2. Uterus has heterogeneous echotexture and contains several small calcifications possibly related to uterine fibroids. 3. Endometrial complex sonographic normal. 4. Adnexa not visualized and cannot be evaluated. Dictated by: Kim Griffith MD, PhD on 07/02/2016 at 12:00 Approved by: Kim Griffith MD, PhD on 07/02/2016 at 12:[address] Mu Manley&Nancy from May 22, 2016 Reason for Admission Patient reported threatening remarks from male tenants at the [facility] soliciting sexual acts that triggered an increase in yahaira and psychotic symptoms. It was difficult to obtain details as she refuses to answer stopped questions. Source of Information: Patient Interview, Chart Review, Observation Chief Complaint I do not want any Zyprexa it makes me fat. History of Present Illness The patient is a 56-year-old female with a recent psychiatric hospitalization on the [facility] (admitted 05/01/2016 and discharged on 05/19/2016). She is currently presenting with multiple symptoms of bipolar mood disorder with psychosis including distractibility pressured speech racing thoughts grandiose and paranoid delusions, a high degree of activity, and poor interpersonal boundaries. Her judgment and insight remain significantly impaired. She suffers from early controlled bipolar disorder, currently expressing itself as yahaira with psychotic features. She was admitted on a revocation of a less restrictive order following failure to comply with her less restrictive order. She has been tried on a number of medications but stabilized on a combination of aripiprazole 20 mg daily and Depakote 750 mg. She started aripiprazole Maintena and was started on 400 mg on April 26, 2016. Despite discharge to [facility] on Sunday She reportedly rapidly deteriorated and presented to the emergency room on Sunday. She was unwilling to work with the [facility] team and so was referred for inpatient hospitalization and potential revocation. She has a history of multiple inpatient hospitalizations and this appears to be her 13th admission to the [facility] alone. She has also been hospitalized at [facility] and at [facility]. Per hospitalist: Presenting Symptoms: Mood (Months), Depression (Months), Yahaira (Months), with Psychotic Features (Months) Vegetative Functioning: Sleep (Decreased), Appetite (Increased), Energy ( Increased), Libido (Increased)Malu Johnson is a 56 year old woman with bipolar disorder admitted to the mental health unit due to psychosis and paranoid delusions who currently believes she is . The hospitalist service is consulted to evaluate the patient after a ground level fall. The patient slipped on water and fell backwards and hit the back of her neck and her head. She states her neck took most of the impact. She now has pain in the back of her neck and a throbbing headache. She also reported elbow pain to the mental health RN. She denies any double vision, dizziness, vertigo, gait instability, nausea, vomiting, hand weakness or elbow pain. She denies any numbness or tingling. The patient also noted pain in her knee from a fall days prior when she slipped on her own urine and fell on her knee. She notes that it is swollen and "hot." The patient is refusing any x ray imaging as she believes she is and this would harm the baby. Hospital Course The patient is a 56-year-old female with a recent psychiatric hospitalization at the [facility] (admitted 05/01/2016 and discharged on 05/19/2016). The patient had been discharged to [facility], but she had been unable to follow expectations and was demonstrating symptoms of decompensation. On admission, she presented with multiple symptoms of bipolar disorder with psychosis including distractibility, pressured speech, racing thoughts, grandiose and paranoid delusions, increased activity, and poor interpersonal boundaries with impaired judgment and insight. The patient was admitted on a revocation of a less restrictive order following failure to comply with her less restrictive order. She has been tried on a number of medications but previously stabilized on a combination of aripiprazole 20 mg daily and Depakote 750 mg. The patient refused Depakote and later the patient began refusing both Abilify Maintena and aripiprazole oral more than 10 mg daily. As the patient was subtherapeutic on 400 mg and had previously required at least 20 mg daily this would likely not improved her situation. Her aripiprazole level while on Maintena was 130 ng/mL with a therapeutic range typically an 150-300 ng /mL and typical lowest level of side effects between 110-249 ng/mL. Received outside records from [facility] from where she was admitted on a revocation of a LRO on 06/19/2000 after stopping her medication, began acting bizarrely, frightening her and children. She also had charges after driving a car across a neighbors lawn and harassing police officers allegedly at their homes. She was diagnosed with Schizophrenia, Chronic paranoid type and was admitted on quetiapine 600mg and levothyroxine 0.175mg. She was tried on olanzapine as she had been prescribed this on a previous admission but had not been effective, was discontinued and changed to risperidone 6mg with quetiapine.600mg. She was noted to be uncooperative with medication, but not assaultive and did not require seclusion or restraint. The patient continued to be delusional but since refusing Adam Katt stated she would take oral aripiprazole but only 10mg. As the patient was on a 180 day order, medications could not be compelled without court order (which eventually occurred). The patient reported "allergies" to other medications due to weight gain and was refusing to take them. She had consistently refused Depakote for this reason. She has also refused, Trileptal, quetiapine, olanzapine, haloperidol, lithium and others for similar reasons. The patient had reported a number of physical ailments such as cracked hands which she reported were a side effect of all of medications, rather than her constant cleaning. The patient was quite agitated and delusional since receiving paperwork that a compelled medication hearing has been scheduled and has been generally hostile to this abstract writer. As the patient is on a 180 day order, the court order was required for ongoing involuntary treatment. The patient received an extension to allow for an outside expert. The patient was subsequently court ordered to comply with treatment including haloperidol and divalproex. After consistently reporting that Depakote caused body aches and she ultimately would not take it on discharge, she agreed to Trileptal. The patient responded well to Trileptal but developed a skin rash on leg and lower abdomen necessitating discontinuation and the patient agreed to take quetiapine. The patient had previously spent a prolonged period of time in seclusion but finally stabilized on a combination of Aripiprazole 15mg daily and quetiapine 400mg nightly. At the time of discharge, the patient was interacting appropriately with staff, was denying being and was more reality focused without being angry. She was reporting her mood as "a little anxious about leaving." Sleep was reported as "okay" 4+ hours per staff. Appetite was reported as "good." Her anxiety was reported as "a little last night" and depression as 0/10. She denied auditory or visual hallucinations, and any thought, active intent or plan of hurting herself or others. The patient did express irritability regarding her with some paranoia. She denied medication side effects. The patient had a number of medical issues including the following: -The patient reported previously having broken her finger 4-5 months earlier but had not reported it until several weeks into the hospitalization. The patient was seen by orthopedics and not found to be a good surgical candidate. The patient's finger was splinted but the patient only wore it briefly before removing it once her pain abated. -The patient had a delusion of pseudocyesis and due to abdominal distension and discomfort had an ultrasound which demonstrated no acute findings (see report). -The patient also reported chronic back and body pain but was able to spend a significant amount of time walking and was noted to be flexible with yoga poses. She did respond well eventually to methocarbamol. -The patient had significant dental decay but due to her hostility and unpredictability, scheduling an outside appointment proved difficult. When assessed for stability by [facility] she was quite agitated, but after the patient stabilized, she was seen at the outside dental office. -Patient was also seen by podiatry. -Free T4 was found to be somewhat elevated, TSH normal, but Synthroid was reduced in a previous admission and was waiting assessment by outpatient provider. Exam Vital Signs (Last) Date Time Temp Pulse Resp B/P Pulse Ox O2 Delivery O2 Flow Rate FiO2 09/08/16 11:43 36.4 70 16 124/77 Exam Discharge Mental Status Exam Appearance: Neat/well groomed Attitude: Pleasant, Cooperative Behavior: No unusual behavior Affect: Well Modulated/Appropriate Mood: Euthymic Thought Process/Associations: Logical/Sequential, Goal Directed Speech Production: Normal Speech Rate: Normal Speech Articulation: Normal Thought Content: Perseveration Danger to Self/Suicidal Ideation: None Danger to Others: None Delusions: Somatic Hallucinations: Auditory (Denies), Visual (Denies) Consciousness: Alert Orientation: Person, Place, Date, Situation Memory: Grossly Intact Estimate Intellectual Function: Average Basis for IQ estimate: Word use/vocabulary Attention/Concentration & Cognition: Mildly Impaired Insight: Limited (but improving) Judgement: Fair Test 05/21/16 05:07 05/21/16 05:15 06/12/16 17:38 06/17/16 15:20 Hold Urine Received (Received) Hold Holguin Top Tube Received (Received) HCG Beta Subunit < 0.500mIU/mL Hepatitis B Surface Antigen Negative (Negative) Hepatitis B Core Total Antibody Negative (Negative) Hepatitis C Antibody <0.1s/co ratio (0.0-0.9) HIV (1&2) Ag and Ab, 4th Generation Non reactive (Non Reactive) Test 06/30/16 13:55 07/03/16 13:09 07/09/16 09:23 07/09/16 11:00 Prolactin 4.5ng/mL (4.8-23.3) Urine Color Straw (YELLOW) Urine Appearance Hazy (CLEAR,HAZY) Urine pH 7.0 (5.0-8.0) Urine Specific [place] 1.010 (1.003-1.035) Urine Protein Negativemg/dL (NEG,TRACE) Urine Glucose (UA) Negativemg/dL (NEGATIVE) Urine Ketones Negativemg/dL (NEGATIVE) Urine Occult Blood Negative (NEGATIVE) Urine Nitrite Negative (NEGATIVE) Urine Bilirubin Negative (NEGATIVE) Urine Urobilinogen Normalmg/dL (NORMAL) Urine Leukocyte Esterase Negative (NEGATIVE) Urine RBC 0-2/hpf (0-2) Urine WBC 0-5/hpf (0-5) Urine Epithelial Cells Occasional/hpf (NONE-MOD) Urine Crystals None seen (NONE SEEN) Urine Bacteria None/hpf (NONE-FEW) Urine Hyaline Casts None/lpf (NONE) Urine Granular Casts None seen (NONE SEEN) Urine Waxy Casts None seen (NONE SEEN) Urine Red Blood Cell Casts None seen (NONE SEEN) Urine White Blood Cell Casts None seen (NONE SEEN) Urine Mucus None seen (None Seen) Urine Trichomonas None seen (NONE SEEN) Urine Yeast None (NONE SEEN) Urinalysis Comment None Urine Culture Reflexed Not indicated Erythrocyte Sedimentation Rate 6mm/hr (0-40) Uric Acid 4.2mg/dL (2.6-7.2) Total Creatine Kinase 177U/L (21-215) Rheumatoid Factor <10.0IU/mL (0.0-13.9) Anti-Nuclear Antibody Screen Negative (Negative) Aripiprazole (Abilify) Level 130.0ng/mL (.) Test 08/15/16 10:00 09/04/16 07:10 Thyroid Stimulating Hormone (TSH) 1.210uIU/mL (0.450-4.500) Free Thyroxine 1.95ng/dL (0.82-1.77) White Blood Count 7.1th/mm3 (3.8-10.1) Red Blood Count 4.09mil/mm3 (3.90-5.20) Hemoglobin 11.9g/dL (12.0-15.6) Hematocrit 34.6% (35.0-46.0) Mean Corpuscular Volume 84.6fL (81-100) Mean Corpuscular Hemoglobin 29.1pg (27.0-35.0) Mean Corpuscular Hemoglobin Concent 34.4% (32.0-37.0) Red Cell Distribution Width 13.5% (12.3-15.4) Platelet Count 410bil/L (150-400) Neutrophils (%) (Auto) 59.9% (40-74) Lymphocytes (%) (Auto) 26.3% (14-46) Monocytes (%) (Auto) 8.6% (4-12) Eosinophils (%) (Auto) 5.0% (0-5) Basophils (%) (Auto) 0.1% (0-3) Sodium Level 130mEq/L (134-144) Potassium Level 4.8mEq/L (3.5-5.2) Chloride Level 96mEq/L (97-108) Carbon Dioxide Level 22mmol/L (18-29) Blood Urea Nitrogen 11mg/dL (6-24) Creatinine 0.61mg/dL (0.57-1.00) Estimat Glomerular Filtration Rate 146mL/min (>59) Glucose Level 116mg/dL (60-99) Calcium Level 9.0mg/dL (8.5-10.1) Total Bilirubin 0.3mg/dL (0.0-1.2) Aspartate Amino Transf (AST/SGOT) 16U/L (0-50) Alanine Aminotransferase (ALT/SGPT) 13U/L (0-32) Alkaline Phosphatase 70U/L (25-150) Total Protein 6.7g/dL (6.4-8.4) Albumin 4.3g/dL (3.4-5.0) Triglycerides Level 72mg/dL (0-149) Cholesterol Level 125mg/dL (100-199) LDL Cholesterol, Calculated 47.600mg/dL (0-99) VLDL Cholesterol 14.400mg/dL HDL Cholesterol 63mg/dL (>39) Cholesterol/HDL Ratio 1.98 (0.0-4.4) Discharge Medications Discharge Medications Aripiprazole (Abilify) 15 Mg Tablet 15 MG PO DAILY Prescribed by: LEEROY STARK MD Atorvastatin (Lipitor) 40 Mg Tablet 40 MG PO HS Prescribed by: LEEROY STARK MD Docusate Sodium (Colace) 100 Mg Capsule 200 MG PO BID Prescribed by: LEEROY TSARK MD Glipizide (Glipizide) 10 Mg Tablet 10 MG PO BID Prescribed by: LEEROY STARK MD Levothyroxine (Levothyroxine) 200 Mcg Tablet 200 MCG PO DAILY Prescribed by: LEEROY STARK MD Lisinopril (Lisinopril) 5 Mg Tablet 5 MG PO DAILY Prescribed by: LEEROY STARK MD Metformin (Glucophage) 1,000 Mg Tablet 1,000 MG PO BID Prescribed by: LEEROY STARK MD Methocarbamol (Methocarbamol) 500 Mg Tablet 500 MG PO DAILYWD Prescribed by: LEEROY STARK MD Methocarbamol (Methocarbamol) 500 Mg Tablet 1,000 MG PO HS Prescribed by: LEEROY STARK MD Omeprazole (Omeprazole) 40 Mg Capsule.dr 40 MG PO DAILY Prescribed by: LEEROY STARK MD Quetiapine Fumarate (Quetiapine Fumarate) 100 Mg Tablet 400 MG PO HS Prescribed by: LEEROY STARK MD As needed Albuterol HFA (Proair HFA) 8.5 Gm Hfa.aer.ad 2 PUFFS INHALATION Q4H PRN PRN For Shortness of Breath Prescribed by: LEEROY STARK MD Diazepam (Valium) 5 Mg Tablet 10 MG PO HS PRN PRN Insomnia Prescribed by: LEEROY STARK MD Hydrocodone-Acetaminophen 5-325 mg (Hydrocodone-Acetaminophen 5-325 mg) 1 Each Tablet 1-2 TABLET PO BID PRN PRN For Mild Pain Prescribed by: LEEROY STARK MD Ibuprofen (Ibuprofen) 400 Mg Tablet 800 MG PO TID PRN PRN For Pain Prescribed by: LEEROY STARK MD Methocarbamol (Methocarbamol) 500 Mg Tablet 500 MG PO TID PRN PRN For Spasm Prescribed by: LEEROY STARK MD Followup Plan Disposition: The patient had had a 14 day inpatient extension but at the time of discharge was denying danger to self, others, and had plans for discharge. The patient was released from hold on a 180 day less restrictive order. The patient verbally consented to take the prescribed medications. The patient verbally expressed understanding of the risks, benefits, alternative treatment options, and risks of not taking the prescribed medication. The patient verbally expressed understanding of the medication instructions, that she will adhere to the prescribed medication, and that she will go to all aftercare scheduled appointments. Follow-up plan Per counselor instructions, Magnolia Nolan at 1pm on 09/11/16 or with [facility] Discharge Diet: Low fat, Low Sodium, Diabetic Discharge Activity: No restrictions Patient Instructions Should you have any thoughts of harming yourself or others, please call the crisis line, your provider, 911, or go to the nearest Emergency Department. Do not change or discontinue your medications without discussing with your provider. You have been given a prescription for 30 days supply of your new medication Leeroy Stark MD Sep 08, 2016 23:40
== END 2016-09-08 18:10 | disposition home or self-care (01) | DRG 885 ==
LOC: SED 04:04 → MHC 16:16
PROVIDERS: ADMIT Psychiatry & Neurology Psychiatry; ATTEND Psychiatry & Neurology Psychiatry
DX: F31.2 Bipolar disorder, current episode manic severe with psychotic features (principal); S09.90XA Unspecified injury of head, initial encounter; F43.10 Post-traumatic stress disorder, unspecified; I10 Essential (primary) hypertension; E03.9 Hypothyroidism, unspecified; E11.9 Type 2 diabetes mellitus without complications; Z79.84 Long term (current) use of oral hypoglycemic drugs; E66.9 Obesity, unspecified; Z68.29 Body mass index [BMI] 29.0-29.9, adult; G47.00 Insomnia, unspecified; M20.011 Mallet finger of right finger(s); M17.11 Unilateral primary osteoarthritis, right knee; W01.0XXA Fall on same level from slipping, tripping and stumbling without subsequent striking against object, initial encounter; Y92.232 Corridor of hospital as the place of occurrence of the external cause; M54.2 Cervicalgia; K03.81 Cracked tooth; K02.9 Dental caries, unspecified; K59.00 Constipation, unspecified; L60.0 Ingrowing nail; Z87.898 Personal history of other specified conditions